=== PATIENT | male | born 1940 | race Caucasian/White ===

== ENCOUNTER 2017-06-07 07:41 | Outpatient (CLI) | payer MEDICARE, OTHER ==
--- NOTE | 2017-06-07 09:34 | RAD ---
TWO VIEWS OF THE CHEST: DATE: 06/07/17. COMPARISON: 03/07/17. HISTORY: Dyspnea. FINDINGS: Heart and mediastinal contours are stable, with mild prominence of the cardiac silhouette noted. The re is atherosclerotic calcification of the aortic arch. There is no pneumothorax or pleural fluid. No lobar consolidation or alveolar edema. On the lateral examination, there is a wedge-shaped area of focal opacity, which is felt to most like ly represent right middle lobe volume loss. This is new when compared to a 01/01/09 exam. Recommend f ollowup imaging to document reexpansion of right middle lobe. IMPRESSION: Wedge-shaped area of opacity noted anteriorly on the lateral examination suggesting partial right mid dle lobe consolidation/collapse. Recommend followup imaging to document reexpansion. POS: [facility]
== END 2017-06-07 07:42 | disposition home or self-care (01) ==
LOC: RAD 07:41
PROVIDERS: ATTEND Internal Medicine Critical Care Medicine
DX: R06.00 Dyspnea, unspecified (principal)
CPT/HCPCS: 71020

== ENCOUNTER 2017-07-13 08:30 | Outpatient (CLI) | payer MEDICARE, OTHER | END 2017-07-13 08:31 | disposition home or self-care (01) | LOC: CP 08:30 | PROVIDERS: ATTEND Internal Medicine Critical Care Medicine | DX: R06.00 Dyspnea, unspecified (principal) | CPT/HCPCS: 94060; 94727; 94729 ==

== ENCOUNTER 2017-10-02 09:35 | Inpatient (IN) | payer MEDICARE, OTHER ==
[2017-10-02 10:14] LABS: Mean Corpuscular HGB CONC 29.6 g/dL (32.0-36.0); Mean Corpuscular Hemoglobin 26.1 pg (27.0-31.0); Mean Corpuscular Volume 88.1 fl (80.0-94.0); Platelet Count 131 thou/uL (130-400); Red Blood Cell (RBC) Count 4.21 mill/uL (4.70-6.10); White Blood Cell (WBC) Count 8.7 thou/uL (4.8-10.8)
[2017-10-02 10:16] LABS: INR-International Normal Ratio 1.2; PTT 32.5 SEC (22.9-36.1); Prothrombin Time 15.3 SEC (12.0-14.7)
[2017-10-02 10:27] LABS: ALT (SGPT) 23 U/L (8-55); AST (SGOT) 12 U/L (5-34); Albumin 3.8 g/dL (3.4-4.8); Alkaline Phosphatase 62 U/L (40-150); BUN (Urea Nitrogen) 52 mg/dL (8.4-25.7); Bilirubin, Total 1.5 mg/dL (0.2-1.2); CK (CPK) 37 U/L (30-200); Calc. Creatinine Clearance 0 mL/min (70-130); Calcium 8.7 mg/dL (7.8-10.44); Estimated GFR-MDRD 48; Globulin 2.7 g/dL (2.4-3.5); Glucose 150 mg/dL (83-110); Iron 26 ug/dL (65-175); Iron Binding Capacity, Total 451 mcg/dL (261-462); Protein, Total 6.5 g/dL (5.8-8.1)
[2017-10-02 10:31] LABS: CKMB 1.5 ng/mL (0-6.6); Troponin I 0.014 ng/mL (< 0.028)
[2017-10-02 10:34] LABS: Anisocytosis SLIGHT = 6-15 cells (100X) (0-5/hpf); Band 3 % (5-11); Lymphocytes 5 % (21-51); MDiff Complete? YES; Monocytes 1 % (0-10); Neutrophil 91 % (42-75); Nucleated RBC 1 % (0); Polychromasia SLIGHT = 2-3 cells (100X) (0-2/hpf)
[2017-10-02 10:40] LABS: Carbon Dioxide 31 mmol/L (23-31)
[2017-10-02 10:43] LABS: Chloride 96 mmol/L (98-107); Potassium 5.3 mmol/L (3.5-5.1); Sodium 139 mmol/L (136-145)
[2017-10-02 10:44] LABS: Anion Gap 17 mmol/L (10-20)
[2017-10-02] MEDS ORDERED: Water For Inject, Bacteriostat 30 ML ONE (11:28)
[2017-10-02] MEDS ORDERED: methylPREDNISolone Sod Succ/PF 125 MG/2 ML VIAL ONE (11:28)
[2017-10-02 11:43] LABS: pH, Arterial 7.17 (7.35-7.45)
[2017-10-02 11:44] LABS: Actual Bicarbonate (HCO3a) 41.2 mEq/L (22-26); Base Excess (BEa) 9.6 mEq/L (0 (+/-) 2.5); Hematocrit-ABG 40.4 % (42.0-52.0); O2 Tension (PaO2) 85.3 mmHg (80.0-100.0)
[2017-10-02 11:45] LABS: Hemoglobin (Hb) 10.6 g/dL (14.0-18.0)
[2017-10-02 11:46] LABS: Analyzer IN Cardio ER
[2017-10-02 11:47] LABS: Puncture Site RT BA
[2017-10-02] MEDS ORDERED: Succinylcholine Chloride 20 MG/ML 10 ml SYRINGE FS ONE (11:47)
[2017-10-02] MEDS ORDERED: Pantoprazole 40 MG VIAL ONE (12:13)
[2017-10-02] MEDS ORDERED: Pantoprazole 80 MG in Sodium Chloride 0.9% 100 ML IVP SCH (12:15)
--- NOTE | 2017-10-02 12:40 | RAD ---
SINGLE VIEW OF THE CHEST: COMPARISON: None. HISTORY: Dyspnea. The patient has rheumatoid arthritis. FINDINGS: A single view of the chest shows an enlarged but stable cardiomediastinal silhouette. There is a sub tle opacity in the right lung base which may represent atelectasis or an infiltrate. IMPRESSION: 1. Right basilar atelectasis versus infiltrate. 2. Cardiomegaly. POS: [facility]
--- NOTE | 2017-10-02 12:53 | PDOC.FPRHP ---
- History of Present Illness Chief Complaint: Black stools History of Present Illness: This is a 76 y/o M with a PMHx of HTN and morbid obesity who presents to the ED due to an episode of dark black stools and bright red blood in the toilet bowl and on the toilet paper this AM. This has never happened to him before. He denies any hematemesis. He denies abd pain, N/V. He does report some constipation over the past 2 weeks and some bloating. The patient has also been having a cough for the past 2 weeks productive of clear sputum as well as worsening SOB. He has chronic LE swelling, but denies any F/C. He reports that he is being worked up outpatient by Dr. Sandoval and is due for a sleep study at the end of this month. He was discharged last time on oxygen, but Dr. Sandoval had taken him off of it because he did some testing in the office and said he didn' t need it. The patient also is supposed to get an Echo with Dr. Harrison on 2017. ED Course: In the ED he was given 2 duonebs, 125mg IV methylprednisolone, 80mg IVPB protonix, followed by protonix at 8mg/hr. The patient was very somnolent on arrival to the ED per the ER physician's record and the patient had an ABG checked that revealed significant CO2 retention. So the patient was started on BiPAP after the ED physician discussed the case with the pulmonlogist and reviewed the ABG. - Allergies/Adverse Reactions Allergies Allergy/AdvReac Type Severity Reaction Status Date / Time No Known Drug Allergies Allergy Verified 10/02/17 15:23 - Home Medications Medication Instructions Recorded Confirmed Type Amlodipine Besylate [amLODIPine 5 mg PO BID 10/02/17 10/02/17 History Besylate] Apixaban [Eliquis] 5 mg PO BID 10/02/17 10/02/17 History Aspirin [Ecotrin] 81 mg PO DAILY 10/02/17 10/02/17 History Budesonide-Formoterol [Symbicort 1 puff INH BID 10/02/17 10/02/17 History 160-4.5] Carvedilol [Coreg] 3.125 mg PO BID 10/02/17 10/02/17 History Furosemide [Lasix] 40 mg PO BID 10/02/17 10/02/17 History Lisinopril 10 mg PO BID 10/02/17 10/02/17 History - History PMHx: 1. HTN 2. Morbid Obesity 3. Past h/o Tobacco Abuse PSHx: 1. R Knee replacement FHx: Denies any family history Social: Former 50 year tobacco use, but quit in 2007, Denies EtOH use or drug use Dr. Samson - PCP Dr. Harrison - Teaching Young Dr. Sandovla - Transformer Builder - Review of Systems General: denies: fever/chills, fatigue ENT: denies: nasal congestion, rhinorrhea Respiratory: reports: cough, congestion, shortness of breath, exercise intolerance Cardiovascular: reports: edema. denies: chest pain, palpitation Gastrointestinal: reports: constipation, GI bleeding. denies: nausea, vomiting , diarrhea, abdominal pain Genitourinary: denies: dysuria, polyuria Skin: denies: rashes, lesions Musculoskeletal: denies: pain, tenderness Neurological: denies: numbness, syncope - Vital signs BP: 118/68 HR: 80 RR: 17 Tmax: 98.2 Pox: 95% on BiPAP Wt: 156 kg - Physical Exam Constitutional: NAD, awake, alert and oriented HEENT: normocephalic and atraumatic, PERRLA, EOMI, conjunctiva clear, normal nasal mucosa, MMM, oropharynx clear, other (BiPAP in place) Neck: supple, trachea midline -Heart: irregularly irregular, no murmurs/gallops/rubs, 1+ pitting edema present in bilateral LE Lungs: CTAB, no respiratory distress, good air movement, no rales/rhonchi, no wheezing, no retractions FMR H&P: Results - Labs Result Diagrams: 10/02/17 15:41 10/02/17 09:56 Lab results: WBC 8.7 thou/uL (4.8-10.8) 10/02/17 09:56 Hgb 11.0 g/dL (14.0-18.0) L 10/02/17 09:56 Hct 37.1 % (42.0-52.0) L 10/02/17 09:56 MCV 88.1 fl (80.0-94.0) 10/02/17 09:56 Plt Count 131 thou/uL (130-400) 10/02/17 09:56 Band Neuts % (Manual) 3 % (5-11) L 10/02/17 09:56 ABG pH 7.17 (7.35-7.45) L* 10/02/17 11:14 ABG pCO2 114.0 mmHg (35.0-45.0) H* 10/02/17 11:14 ABG pO2 85.3 mmHg (80.0-100.0) 10/02/17 11:14 Sodium 139 mmol/L (136-145) 10/02/17 09:56 Potassium 5.3 mmol/L (3.5-5.1) H 10/02/17 09:56 Chloride 96 mmol/L (98-107) L 10/02/17 09:56 Carbon Dioxide 31 mmol/L (23-31) 10/02/17 09:56 BUN 52 mg/dL (8.4-25.7) H 10/02/17 09:56 Creatinine 1.42 mg/dL (0.6-1.3) H 10/02/17 09:56 Glucose 150 mg/dL (83-110) H 10/02/17 09:56 Calcium 8.7 mg/dL (7.8-10.44) 10/02/17 09:56 Total Bilirubin 1.5 mg/dL (0.2-1.2) H 10/02/17 09:56 AST 12 U/L (5-34) 10/02/17 09:56 ALT 23 U/L (8-55) 10/02/17 09:56 Alkaline Phosphatase 62 U/L (40-150) 10/02/17 09:56 Creatine Kinase 37 U/L (30-200) 10/02/17 09:56 CK-MB (CK-2) 1.5 ng/mL (0-6.6) 10/02/17 09:56 B-Natriuretic Peptide 164.7 pg/mL (0-100) H 10/02/17 09:56 Serum Total Protein 6.5 g/dL (5.8-8.1) 10/02/17 09:56 Albumin 3.8 g/dL (3.4-4.8) 10/02/17 09:56 - EKG Interpretation EKG: a-fib, Rate 93 - Radiology Interpretation Chest x-ray Status: image reviewed by me, report reviewed by me Additional comment: Cardiomegaly, R basilar atelectasis vs infiltrate FMR H&P: A/P - Problem List (1) Acute respiratory failure with hypercapnia Current Visit: Yes Status: Acute Code(s): J96.02 - ACUTE RESPIRATORY FAILURE WITH HYPERCAPNIA (2) Respiratory acidosis Current Visit: Yes Status: Acute Code(s): E87.2 - ACIDOSIS (3) Gastrointestinal bleed Current Visit: Yes Status: Acute Code(s): K92.2 - GASTROINTESTINAL HEMORRHAGE, UNSPECIFIED Qualifiers: GI bleed type/associated pathology: unspecified gastrointestinal hemorrhage type Qualified Code(s): K92.2 - Gastrointestinal hemorrhage, unspecified (4) KOREY (acute kidney injury) Current Visit: Yes Status: Acute Code(s): N17.9 - ACUTE KIDNEY FAILURE, UNSPECIFIED (5) Hyperkalemia Current Visit: Yes Status: Acute Code(s): E87.5 - HYPERKALEMIA (6) CKD (chronic kidney disease) Current Visit: Yes Status: Acute Code(s): N18.9 - CHRONIC KIDNEY DISEASE, UNSPECIFIED Qualifiers: Chronic kidney disease stage: unspecified stage Qualified Code(s): N18.9 - Chronic kidney disease, unspecified (7) Normocytic anemia Current Visit: Yes Status: Acute Code(s): D64.9 - ANEMIA, UNSPECIFIED (8) Former heavy tobacco smoker Current Visit: Yes Status: Acute Code(s): Z87.891 - PERSONAL HISTORY OF NICOTINE DEPENDENCE (9) Morbid obesity Current Visit: No Status: Acute Code(s): E66.01 - MORBID (SEVERE) OBESITY DUE TO EXCESS CALORIES (10) Hypertension Current Visit: No Status: Chronic Code(s): I10 - ESSENTIAL (PRIMARY) HYPERTENSION Qualifiers: Hypertension type: essential hypertension Qualified Code(s): I10 - Essential (primary) hypertension (11) Atrial fibrillation Current Visit: Yes Status: Acute Code(s): I48.91 - UNSPECIFIED ATRIAL FIBRILLATION Qualifiers: Atrial fibrillation type: unspecified Qualified Code(s): I48.91 - Unspecified atrial fibrillation - Plan 1. Acute Hypercapnic Respiratory Failure, likely 2/2 CAP vs worsening of the patient's chronic lung dz vs Pickwickian syndrome The patient had findings suspicious for PNA on CXR. He was afebrile, but had 91 % Neutrophils and 3% bands. He has an extensive smoking history. He has been evaluated by Dr. Sandoval with Pulmonology and found to have severe restrictive lung disease with superimposed mild obstructive lung disease. The patient is morbidly obese and likely has MAY and has been set up for a sleep study outpatient at the end of this month. ABG showed pH 7.17, pCO2 117 -Dr. Palafox with Pulmonology has been consulted, appreciate recs -Repeat ABG in 6 hours -BiPAP -Admit to IMCU -Check urine strep pneumo and urine legionella antigens -Cover for CAP with Azithromycin day 1 and Rocephin day 1 2. GI Bleeding The patient had dark stools, associated constipation over the past 2 weeks and BRBPR on 10/02. He has never been worked up for this before. H/H is stable. Iron and Ferritin were low. -Will trend H/H q8h -Consult GI when patient is stable from a pulmonary standpoint -Protonix 40mg IV BID -Hold eliquis and aspirin 3. Normocytic Anemia Likely a combination of ACD and iron deficiency The patient has low iron and ferritin. -Consider iron infusion vs po iron for iron deficiency 4. Hyperkalemia Patient had initial elevated potassium with no EKG changes -Will recheck potassium and monitor 5. A-fib Patient appears rate controlled at this time -Will hold eliquis and aspirin -Monitor on tele 6. KOREY on CKD Patient appears to have a mild KOREY on top of his CKD. Will monitor. Do not want to give pt fluids as pt appears to have baseline fluid retention with his LE swelling. 7. HTN -Continue home meds 8. Morbid Obesity HH diet, counseling Disposition/LOS: Admit to IMCU Length of stay likely greater than 2 days FMR H&P: Upper Level - Pertinent history Patient with significant smoking history who has been evaluated by Pulmonology and found to have severe restrictive lung disease with superimposed mild obstructive lung disease. Presents to ED with acute worsening of SOB and BEE over the last two weeks, though this has a chronic issue for months/years. He was very somnolent upon arrival to ED with ABG showing CO2 retention. He was unable to maintain oxygen saturation on high flow nasal cannula and required BiPap with Pulm/Critical Care evaluation. Patient and family endorse hematochezia this morning. He reports a history of dark stools for several weeks, but only BRBPR this morning. He denies any pain or abdominal tenderness. He was recently started on Eliquis in September for atrial fibrillation by either Cardiology or PCP, but this history will need to be confirmed with providers as family is not sure about details. - Pertinent findings H/H: 11/37.1 K+: 5.3 BUN: 52 Cr: 1.42 AB.17/114/85 BNP: 164 Iron: 26 Ferritin: 15 Physical exam significant for 3+ pitting edema to bilateral knees and irregular rate and rhythm on cardiac auscultation. - Plan Date/Time: 10/02/17 1252 INikunj, have evaluated this patient and agree with findings/plan as outlined by internet project manager resident. Pertinent changes/additions are listed here. 1. Acute hypercapneic respiratory failure possibly 2/2 CAP: CXR shows possible RLL atelectasis versus infiltrate. Evaluation of prior CXR in March 2017 shows RLL density read as scar versus volume loss. Patient with left shift but no leukocytosis. Due to acute worsening of clinical picture we will cover with Rocephin and Azithromycin at this time. Patient has not been hypercapneic or tachycardic and he denies any unilateral lower extremity swelling above his baseline edema so there is a low suspicion for pulmonary embolus currently. BNP is within normal range and is lower than on prior admission. Patient has what seems to be a chronic compensated respiratory acidosis that was acutely worsened by infectious process. 2. GI bleed: FOBT positive in ER with several week history of dark stools and one day history of BRBPR. Iron and ferritin are low with MCV on low end of normal. Hemoglobin at 11 on admission. Plan for GI evaluation with likely endoscopy once respiratory status improves. In the meantime, we will trend H/H q8h and monitor hemodynamic status. Discontinue Eliquis 3. Hyperkalemia: 5.3 on admission with no EKG abnormalities. We will trend and continue to monitor 4. Normocytic anemia: labs reveal iron deficiency today probably 2/2 to GI bleed. Patient likely has ACD from his respiratory disease as well. H/H will be trended q8h 5. Atrial fibrillation: hold Eliquis 2/2 GI bleed. Rate and BP are stable currently. Monitor and treat accordingly
[2017-10-02 13:40] LABS: Troponin I 0.017 ng/mL (< 0.028)
--- NOTE | 2017-10-02 14:00 | HP ---
DATE OF ADMISSION: 10/02/2017 This is attending history and physical for patient, Quintin Rodgers. For full history and physical [facility], please see Dr. Nikkie Uriarte's history and physical. Portions of the history and physical have bee n repeated by myself and I am in agreement with the assessment and plan as documented in her note. HISTORY OF PRESENT ILLNESS: In brief, this patient is a 76-year-old male with a history of hypertens ion, morbid obesity, and questionable COPD, who presented to the emergency room earlier today after t he onset of bright red blood per rectum. Per the patient, he endorses that over the last 2 weeks, hi s stools have been darker than normal. However, this morning he had a bowel movement that he reporte d had red blood mixed in with the stool as well as was in the toilet water. He also endorses bright red blood with wiping this morning. He reports that he has never had this problem before. Of note, the patient was started on Xarelto by his potato seed cutter a few weeks ago. Otherwise, the patient denie s any nausea, abdominal pain, and diarrhea. He does report that he has had worsening constipation ov er the last several weeks. He also endorses some mild early satiety and reports that he has been gai michele weight despite lack of appetite. Upon arrival to the emergency room for his hematochezia compla int, the patient was noted to be hypoxic with sats in the 80s on room air. He was placed on nasal ca nnula with improving saturations. However, an ABG was checked which showed the patient to be severel y hypercapnic, at that time a decision was made to admit the patient for the hospital for hypercapnic respiratory failure. Upon questioning, the patient reports being at baseline mental status and endo rses no change in his respiratory status over the last few months. He reports that he has been basel ine short of breath since his last hospitalization in March. He reports that he has been seeing his PCP, Dr. Samson, as well as his bag presser, Dr. Sandoval, in the outpatient setting. He apparently had formal PFTs performed at Dr. Sandoval's office and the family is unsure of the result, but they repo rt that they do not think the patient was diagnosed with COPD. They do endorse that the patient was scheduled for a sleep study by Dr. Sandoval in the near future. The patient also denies any increased l ower extremity swelling, though he does endorse he chronically has this lower extremity edema. The p atrubi also reports chronic "phlegm" that he deals with daily that is unchanged recently. The patien t otherwise denies any fevers, chills, confusion, increased malaise or fatigue. PHYSICAL EXAMINATION: VITAL SIGNS: At the time of my exam, the patient's vitals were as follows: Temperature 98.2, pulse 96, blood pressure 103/49, respirations 28, oxygen saturation 96% on BiPAP. He weighs 156 kilograms. GENERAL: The patient is alert, oriented x4, in no apparent distress. He had BiPAP mask on and was b reathing well with that. He is morbidly obese. LUNG: Difficult to auscultate due to his body habitus though no abnormal sounds could be auscultated . HEART: Also faint and difficult to auscultate, mildly irregular rhythm with irregular but equal puls es bilaterally. ABDOMEN: Soft and globular. The patient had no epigastric or other quadrant tenderness to palpation . RECTAL: Deferred at this time, though that was performed in the emergency room, which showed interna l and external hemorrhoids as well as mild blood in the rectal vault with a positive FOBT. EXTREMITIES: Revealed no clubbing or cyanosis. The patient did have 3+ edema in the ankles bilatera lly, ascending to 2+ edema at the level of the knees. PERTINENT LABORATORY STUDIES: 1. Reveal CBC with a white blood cell count of 8.7, H&H of 11 and 37, platelets 131, neutrophils 91% with 3% bands and MCV 88. 2. BMP showed sodium 139, potassium 5.3, chloride 96, bicarbonate 31, BUN 52, creatinine 1.42, gluco se 150. 3. Iron studies showed iron level of 26, TIBC 451, ferritin 15.2. 4. Liver enzymes were overall normal with a mildly increase in total bilirubin. 5. BNP 164. 6. Arterial blood gas showed a pH 7.17, pCO2 of 114, pO2 of 85. Oxygen saturation 91%, base excess of 9. A-a gradient negative 28. 7. Coags show PT 15.3, PTT 32.5, INR 1.2. IMAGING: Chest x-ray showed right basilar atelectasis versus infiltrate as well as cardiomegaly. ASSESSMENT AND PLAN: A 76-year-old male with a history of some unspecified pulmonary disease, mike toribio being worked up by his bag presser who is presenting with hematochezia and hypercapnia. 1. Acute on chronic hypoxic hypercapnic respiratory failure. The patient will be admitted to the [facility] at this time on BiPAP therapy. Pulmonology has been consulted and we will appreciate their recomm endations in the care of this patient. Analysis of ABG shows that his hypercapnia is mostly a chroni c and well compensated respiratory acidosis. We have no known history that he is chronically hypoxic , though he is at this time. It is likely with the patient's chest x-ray findings he may have a mild developing pneumonia that could have thrown him over into this acute on chronic type picture. I rec ommend broad-spectrum antibiotics for community-acquired pneumonia, be started as well as respiratory support including nebulizer treatments as needed. For further weaning from BiPAP and other respirat ory measures will be managed by Pulmonology/Critical Care. The patient with normal mentation and the refore does not appear that his hypercapnia is affecting his mentation are causing some sort of encep halopathy. Due to his morbid obesity and lack of formal diagnosis chronic obstructive pulmonary dise ase, his hypercapnia is likely secondary to obesity hypoventilation syndrome that I assume be further worked up in the outpatient setting. 2. Hematochezia with likely gastrointestinal bleed. The patient recently started on novel oral anti coagulation by his potato seed cutter with onset of dark stools approximately 2 weeks ago with onset of titus ght red blood per rectum today. Unknown source could be related to hemorrhoids due to his dark stool s, I would be concerned about an upper GI tract bleed. He currently has no symptoms other than the e chase satiety, which could indicate GI gastric source of bleeding. The patient will need GI consult w ith likely endoscopy, though that can be deferred at this time until his respiratory status is more s table. We will trend H&H to ensure that he is not losing blood and we will consult GI more urgently if that becomes the case. We will hold anticoagulation at this time. The patient has been placed on KATIE hose. 3. Hyperkalemia. No known history. This is mild. We will continue to trend and monitor and take m easures if needed. 4. Chronic kidney disease. His creatinine is currently at near baseline. We will continue to monit or. 5. Normocytic anemia. This is likely multifactorial as the patient does have laboratory evidence of iron deficiency, but likely also has a component of anemia of chronic disease. We will trend H&H is as above. 6. Hypertension. Blood pressure currently stable at this time. Continue to monitor. 7. As far as the rest of his chronic medical conditions, he will be continued on his home medication s for atrial fibrillation and hypertension. Anticipate a minimum 2-3 day hospitalization.
[2017-10-02] MEDS ORDERED: cefTRIAXone\\ROCEPHIN 1 GM in Sodium Chloride 0.9% 100 ML IVPB SCH (15:00)
[2017-10-02 15:11] VITALS: BMI 45.9
[2017-10-02 15:51] LABS: Hemoglobin 11.6 g/dL (14.0-18.0)
[2017-10-02 16:16] LABS: Troponin I 0.019 ng/mL (< 0.028)
[2017-10-02] MEDS: Azithromycin 500 MG in Sodium Chloride 0.9% 250 ML 250 ML IVPB SCH (16:46)
[2017-10-02] MEDS: cefTRIAXone\\ROCEPHIN 1 GM, Syringe 0.4 ML in Sterile Water 9.6 ML SLOW IVP SCH (16:47)
[2017-10-02] MEDS: Mometasone/Formoterol 120 PUFF INHALER INH SCH (19:03)
[2017-10-02 19:32] LABS: Potassium 5.5 mmol/L (3.5-5.1)
--- NOTE | 2017-10-02 19:39 | CON ---
DATE OF CONSULTATION: 10/02/2017 SERVICE: Pulmonary Medicine. REASON FOR CONSULTATION: Respiratory failure. HISTORY OF PRESENT ILLNESS: The patient is a 76-year-old white male with past medical history significant for morbid obesity. He was in his usual state of health until about a week prior to presentation when he started having increasing somnolence. For the past 2 weeks, he has had also darkly normal stools. Either way, he had bright red blood, where he passed per rectum on the day of presentation. He came to the Emergency Department and was extraordinarily somnolent. An ABG was performed demonstrating acute on chronic hypercapnic respiratory failure. He was placed on BiPAP. His somnolence actually dramatically improved. He currently denies any shortness of breath, fevers, chills, nausea or vomiting. So far, he is aware, he has not had any new onset respiratory symptoms here recently. He failed to void when he was on the floor. A Noel catheter was attempted, but could not be passed. As such, Urology has been consulted. The patient is asking for food right now, but we are going to hold off on this moving forward. PAST MEDICAL HISTORY: 1. Morbid obesity. 2. Obstructive sleep apnea, strongly suspected. 3. Chronic hypercapnic respiratory failure (baseline pCO2 of 61). 4. Severe restrictive lung disease secondary to body habitus. 5. Obesity hypoventilation syndrome, suspected. PAST SURGICAL HISTORY: Right knee replacement. ALLERGIES: No known drug allergies. MEDICATIONS: List of his inpatient medications were reviewed. No updates were made at this time. FAMILY HISTORY: Noncontributory. SOCIAL HISTORY: The patient has a [id number] history of smoking, but quit smoking 10 years ago. He drinks 1-2 alcoholic drinks on a daily basis. He denies any illicit drugs. He has no exposure to chemicals, dust, asbestos or tuberculosis. REVIEW OF SYSTEMS: General, head, ears, eyes, nose, throat, cardiovascular, respiratory, GI, , musculoskeletal, neurologic and skin is negative except as stated in the HPI. PHYSICAL EXAMINATION: VITAL SIGNS: Afebrile, pulse 94, blood pressure 92/57, respiration is 19, saturation 93% on BiPAP with 30% FiO2 and a PEEP of 10. HEENT: Normocephalic and atraumatic. Sclerae are white, conjunctivae pink. Oral and nasal mucosa is moist without lesions. LUNGS: Decent air entry. Dependent crackles are not present. There is no prolonged expiratory phase or wheezing appreciated. HEART: Normal rate and regular. ABDOMEN: Soft, nontender and nondistended. Bowel sounds are positive. MUSCULOSKELETAL: No cyanosis or clubbing. No pitting in the bilateral lower extremities. NEUROLOGIC: Grossly nonfocal. He demonstrates asterixis. LABORATORY DATA: WBC 8.7. Hemoglobin 11.0, which has trended upward to 11.6. Platelets 131,000. Neutrophils are 91%. INR 1.2. PH 1.17 and pCO2 114 ( baseline 61). Creatinine 1.42 over baseline of 0.9. Potassium 5.3, glucose 150. Total bilirubin 1.5, ferritin 15.28. Troponins are negative x3, BNP 164. Liver function studies were essentially unremarkable otherwise. Urinalysis is unremarkable. IMAGING DATA: 1. Chest x-ray demonstrates right mid lung zone atelectasis versus infiltrate. Low lung volumes are present. Soft tissue attenuation is present. A fairly clearly demonstrated prior atelectasis of the right lower lobe on a CT scan remotely. At that time, there was no interstitial lung changes or changes consistent with the severe emphysema. 2. Recent pulmonary function studies demonstrated severe restrictive lung disease. 3. Recent echocardiogram demonstrates ejection fraction of 50% to 55%. Wall segments were not clearly identified. The valves that were identified were structurally normal. ASSESSMENT: 1. Acute on chronic hypoxic and hypercapnic respiratory failure. 2. Morbid obesity. 3. Obesity hypoventilation syndrome. 4. Obstructive sleep apnea, suspected. 5. Urinary retention. 6. Bright red blood per rectum. 7. Community-acquired pneumonia, possible. DISCUSSION AND PLAN: We have a challenging situation here. Ideally would have GI consider doing an esophagogastroduodenoscopy and colonoscopy. That being said, he can tolerate the conscious sedation under his current condition. We are going to put a Noel catheter and if his respiratory distress improves significantly with this intervention, we may be able to move forward with a GI consultation. If on the other hand, his respiratory status does not improve dramatically with that intervention, we may need to intubate him, so that we can undergo the diagnostic studies that are necessary. The majority of his lung problem is associated with his weight. I am doubtful that he has true intrinsic lung or obstructive lung disease like COPD or asthma, though minimal component may be contributed to his overall lung dysfunction. Agree with antibiotics directed at community-acquired pneumonia, although I would limit him to a 5-day course on both the azithromycin, and the Rocephin. We will provide some nebulized medications to see if we can promote more air movement through his lungs. He will remain on BiPAP and we can start giving him some breaks from time to time. I will give him a clear liquid diet, but I do not want his diet advanced until decided whether or not we need to proceed with intubation for a likely pending GI procedure. 70 minutes have been devoted to this patient in various activities. I personally reviewed all imaging studies and laboratory data noted within this document. For greater than fifty percent of this time, I was interacting with the patient at the bedside or coordinating care with the care team. For the remainder of the time I was immediately available to the patient in the hospital unit. LORA
[2017-10-02 19:40] LABS: Bilirubin Negative (Negative); Blood, Urine Large (Negative); Clarity CLEAR (Clear); Glucose, Urine (Dipstick) Negative (Negative); Leukocyte Negative (Negative); Nitrite Negative (Negative); Protein, Urine (Dipstick) 30 mg/dL (Neg-Trace); Specific Gravity, Urine 1.018 (1.002-1.036); Urobilinogen 0.2 mg/dL (0.2-1.0); pH, Urine 5.5 (5.0-9.0)
[2017-10-02 19:42] LABS: Bacteria/HPF None Seen HPF (None Seen); Hyaline Casts/LPF 0-3 HYALINE CAST LPF (0-3 Hyaline); RBC/HPF GREATER THAN 50-TNTC HPF (0-3); Squamous Epithelial 0-3 HPF (0-3); WBC/HPF 0-3 HPF (0-3)
--- NOTE | 2017-10-02 19:44 | CON ---
DATE OF CONSULTATION: 10/02/2017 PRIMARY CARE PHYSICIAN: Dr. Samson. REASON FOR CONSULTATION: Difficult Noel catheter placement, urinary retention , bladder scan 700-800 mL. HISTORY OF PRESENT ILLNESS: Mr. Rodgers is a pleasant 76-year-old male with history of hypertension, morbid obesity, COPD, followed by Dr. Sandoval. He is admitted due to acute hypoxic respiratory failure. He is currently on BiPAP and Dr. Palafox has been seeing the patient. He was transitioned to the emergency room and was told that he is due to void, nursing staff tried to place a Noel catheter x2 at bedside unable to pass and some resistance was noted proximally. Nursing staff attempted a 16-Macanese coude x2; however, due to subsequent blood per meatus, procedure was abandoned and urologic consultation was obtained. Bladder scan read 700-800 mL. The patient's is at bedside. He denies significant obstructive urinary symptoms of sensation of incomplete void. He does feel pressure to void at this time; however, unable to pass urine. He does relate nocturia 2-4 times, denies history of sexually transmitted diseases, prior history of BPH, prostate cancer or urologic assessment in the past. Denies prior history of urinary retention. He was previously admitted for similar respiratory failure back in March. PAST MEDICAL HISTORY: 1. History of respiratory failure. 2. Chronic obstructive pulmonary disease. 3. Morbid obesity. 4. Hypertension. ALLERGIES: No known drug allergies. PAST SURGICAL HISTORY: Right total knee replacement. FAMILY HISTORY: Noncontributory. SOCIAL HISTORY: Include [id number] smoking history, stopped smoking 10 years ago. Alcohol 1-2 drinks per day. 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 REVIEW OF SYSTEMS: Ten point review of systems as above, otherwise noncontributory. CURRENT MEDICATIONS: Include albuterol, Norvasc, Zithromax, carvedilol, Rocephin, Lasix 40 mg b.i.d., Zestril, Dulera, Protonix. PHYSICAL EXAMINATION: VITAL SIGNS: 98, 90, 21, 93% on BiPAP. GENERAL: The patient is currently comfortable, had sensation to void, feeling suprapubic pressure. HEENT: Grossly unremarkable. HEART: Regular rate. LUNGS: Clear, however, decreased bilaterally, given his body habitus. ABDOMEN: Morbidly obese, protuberant. There is no gross suprapubic distention per se; however, this is suboptimally evaluated. He is morbidly obese. GENITOURINARY: Demonstrates his prostate is approximately 30-40 grams. No significantly large prostate per se is palpated on exam. No nodules are appreciated. Testes are descended with no evidence of intratesticular mass. There is blood at the meatus from recent attempts at Noel catheter trauma/ attempted placement. The patient was formally prepped and draped and I did attempt to pass a 14 and16 Macanese coude catheter at bedside and there is resistance at the level of the bulbar prostatic urethral region. Subsequently, the patient is transitioned for a flexible cystoscopy. Indications reviewed with and patient. They desired to proceed. EXTREMITIES: No calf tenderness. DESCRIPTION OF PROCEDURE: The patient's penis was formally prepped and draped. A flexible cystoscope was passed. Upon entering the level of the proximal penile /bulbar urethra, there is a false passage. The true lumen was ventral to false passage. I was able to pass a 0.35 sensor wire to the level of the bladder. Wire was placed to the level of the bladder; unable to pass the scope while the wire in situ to access the bladder as he was having discomfort. Therefore, I did remove the flexible cystoscope. A ugashik tip 16 Macanese Noel catheter over the guidewire, which did pass successfully. Wire was then subsequently removed and approximately 700-800 mL of clear yellow urine was obtained for postvoid residual. He tolerated the procedure well and the Noel catheter was secured x2 with StatLock. A 10 mL insufflated. He tolerated the procedure well. IMPRESSION AND PLAN: Mr. Rodgers is a 76-year-old male with history of: 1. Morbid obesity. 2. Hypertension, who presents with acute respiratory failure. 3. Gastrointestinal bleed as he has had history of blood per rectum. 4. Urologic issues of acute urinary retention of post-void residual of 700-800 mL, cystoscopy demonstrating a false passage, successful Noel catheter placement via guide wire assist. . I will empirically provide Flomax for BPH component, incidentally noted is mild meatal stenosis; however, able to pass a 16 Macanese Noel. The Noel catheter was remained in situ for minimum 1-2 weeks , due to urinary retention of significant postvoid residual, as this will be required longer bladder decompression due to overdistention injury, moreover false passage requires further healing. The patient and informed. UA and C&S will be obtained. 5; gross hematuria secondary to anticoagulation with Elliquis, traumatic Noel catheter attempts. The etiology of difficulty Noel catheter placement is difficult to discern, cannot rule out occult urethral stricture resulting in initial difficult catheter attempts versus catheter related trauma. Elective cystoscopy in 6-8 weeks after voiding trial advised MTDD
[2017-10-02 19:57] LABS: Legionella Urinary Ag Negative (Negative); Strep pneumo Urine Ag NEGATIVE (NEGATIVE)
[2017-10-02] MEDS: Lisinopril 10 MG TAB PO SCH (20:16)
[2017-10-02] MEDS: Pantoprazole 40 MG VIAL IVP SCH (20:16)
[2017-10-02] MEDS: Amlodipine 5 MG TAB PO SCH (20:17)
[2017-10-02] MEDS: Carvedilol 3.125 MG TAB PO SCH (20:19)
[2017-10-02] MEDS: Furosemide 40 MG TAB PO SCH (20:19)
[2017-10-02 23:15] LABS: Hemoglobin 10.8 g/dL (14.0-18.0)
[2017-10-03 04:16] LABS: Anion Gap 14 mmol/L (10-20); BUN (Urea Nitrogen) 56 mg/dL (8.4-25.7); Calc. Creatinine Clearance 97 mL/min (70-130); Calcium 8.6 mg/dL (7.8-10.44); Carbon Dioxide 33 mmol/L (23-31); Chloride 98 mmol/L (98-107); Estimated GFR-MDRD 50; Glucose 128 mg/dL (83-110); Potassium 6.1 mmol/L (3.5-5.1); Sodium 139 mmol/L (136-145)
[2017-10-03 05:00] LABS: #Lymphocytes 0.5 thou/uL (1.20-3.40); #Monocytes 0.9 thou/uL (0.11-0.59); #Neutrophils 11.9 thou/uL (1.40-6.50); %Eosinophils 0.3 % (0.0-10.0); %Lymphocytes 3.8 % (21.0-51.0); %Monocytes 6.9 % (0.0-10.0); %Neutrophils 89.1 % (42.0-75.0); Anisocytosis SLIGHT = 6-15 cells (100X) (0-5/hpf); Hemoglobin 10.8 g/dL (14.0-18.0); MDiff Complete? YES; Mean Corpuscular HGB CONC 28.9 g/dL (32.0-36.0); Mean Corpuscular Hemoglobin 25.9 pg (27.0-31.0); Mean Corpuscular Volume 89.6 fl (80.0-94.0); Mean Platelet Volume 8.4 fL (7.4-10.4); RBC Distribution Width 17.4 % (11.5-14.5); Red Blood Cell (RBC) Count 4.18 mill/uL (4.70-6.10); White Blood Cell (WBC) Count 13.3 thou/uL (4.8-10.8)
[2017-10-03] MEDS: Mometasone/Formoterol 120 PUFF INHALER INH SCH ×2 (07:13→18:54)
--- NOTE | 2017-10-03 07:29 | PDOC.FM ---
Addendum entered and electronically signed by Nikkie Uriarte MD 10/03/17 07:43: Subjective: Patient doing well on BiPAP. He reports that he slept well overnight and has no complaints. He denies F/C, SOB, or CP. He denies any further BM's since arrival to the hospital. ROS: negative for fever, chills, N/V, D/C, abdominal pain, SOB, CP PE: General: drowsy, on BiPAP, easy to arouse HEENT: Normocephalic/atraumatic, PERRL Neck: Supple, No LAD CV: Irregularly irregular, no M/G/R, Trace pitting edema in BLE Resp: Bilateral rales, no wheezes or rubs, normal effort, no use of accessory muscles of respiration, on BiPAP Abd: morbidly obese, NTTP, normoactive BS MSK: normal tone, normal structure Neuro: AOx3 Original Note: - Objective Vital Signs & Weight: Vital Signs (12 hours) Temp Pulse Resp BP BP Pulse Ox 10/03/17 07:15 92 L 10/03/17 07:13 89 16 10/03/17 07:11 89 16 10/03/17 04:08 96.8 F L 90 23 H 101/62 91 L 10/03/17 00:36 87 92 L 10/03/17 00:35 92 L 10/02/17 23:44 93 17 104/61 94 L 10/02/17 22:00 88 18 108/63 88 L 10/02/17 20:17 88 102/68 10/02/17 20:16 102/68 10/02/17 20:00 96.8 F L 92 18 91 L 10/02/17 19:39 96.8 F L 92 18 127/72 91 L Weight Weight 152.577 kg I&O: 10/02/17 10/03/17 10/04/17 06:59 06:59 06:59 Intake Total 250 Output Total 1150 Balance -900 Result Diagrams: 10/03/17 03:33 10/03/17 03:33 <Nikkie Uriarte - Last Filed: 10/03/17 07:25> - Objective Vital Signs & Weight: Vital Signs (12 hours) Temp Pulse Resp BP Pulse Ox 10/03/17 07:47 97.2 F L 93 20 72/47 L 91 L 10/03/17 07:15 92 L 10/03/17 07:13 89 16 10/03/17 07:11 89 16 10/03/17 04:08 96.8 F L 90 23 H 101/62 91 L 10/03/17 00:36 87 92 L 10/03/17 00:35 92 L 10/02/17 23:44 93 17 104/61 94 L Weight Weight 152.577 kg I&O: 10/02/17 10/03/17 10/04/17 06:59 06:59 06:59 Intake Total 250 Output Total 1150 Balance -900 Result Diagrams: 10/03/17 03:33 10/03/17 03:33 <Geremias Ahumada - Last Filed: 10/03/17 10:58> Dx/Plan (1) Acute respiratory failure with hypercapnia Code(s): J96.02 - ACUTE RESPIRATORY FAILURE WITH HYPERCAPNIA Status: Acute (2) Respiratory acidosis Code(s): E87.2 - ACIDOSIS Status: Acute (3) Gastrointestinal bleed Code(s): K92.2 - GASTROINTESTINAL HEMORRHAGE, UNSPECIFIED Status: Acute QualifierTitle: GI bleed type/associated pathology: unspecified gastrointestinal hemorrhage type Qualified Code(s): K92.2 - Gastrointestinal hemorrhage, unspecified (4) KOREY (acute kidney injury) Code(s): N17.9 - ACUTE KIDNEY FAILURE, UNSPECIFIED Status: Acute (5) Hyperkalemia Code(s): E87.5 - HYPERKALEMIA Status: Acute (6) CKD (chronic kidney disease) Code(s): N18.9 - CHRONIC KIDNEY DISEASE, UNSPECIFIED Status: Acute QualifierTitle: Chronic kidney disease stage: unspecified stage Qualified Code(s): N18.9 - Chronic kidney disease, unspecified (7) Normocytic anemia Code(s): D64.9 - ANEMIA, UNSPECIFIED Status: Acute (8) Former heavy tobacco smoker Code(s): Z87.891 - PERSONAL HISTORY OF NICOTINE DEPENDENCE Status: Acute (9) Morbid obesity Code(s): E66.01 - MORBID (SEVERE) OBESITY DUE TO EXCESS CALORIES Status: Acute (10) Hypertension Code(s): I10 - ESSENTIAL (PRIMARY) HYPERTENSION Status: Chronic QualifierTitle: Hypertension type: essential hypertension Qualified Code( s): I10 - Essential (primary) hypertension (11) Atrial fibrillation Code(s): I48.91 - UNSPECIFIED ATRIAL FIBRILLATION Status: Acute QualifierTitle: Atrial fibrillation type: unspecified Qualified Code(s): I48.91 - Unspecified atrial fibrillation - Plan Plan: 1. Acute Hypercapnic Respiratory Failure, likely 2/2 CAP vs Obesity Hypoventilation Syndrome The patient had findings suspicious for PNA on CXR. He was afebrile, but had 91 % Neutrophils and 3% bands. His WBC trending up this AM to 13.3. He has an extensive smoking history. He has been evaluated by Dr. Sandoval with Pulmonology and found to have severe restrictive lung disease with superimposed mild obstructive lung disease. The patient is morbidly obese and likely has MAY and has been set up for a sleep study outpatient at the end of this month. ABG showed pH 7.17, pCO2 117. Urine strep pneumo and urine legionella antigens negative. -Dr. Palafox with Pulmonology has been consulted, appreciate recs -BiPAP overnight with IPAP 20, EPAP 10, and O2 50%, will attempt to wean off during the day today to [place]. -Cover for CAP with Azithromycin day 2 of 5 and Rocephin day 2 of 2. GI Bleeding The patient had dark stools, associated constipation over the past 2 weeks and BRBPR on 10/02. He has never been worked up for this before. H/H is stable. Iron and Ferritin were low. Patient has not had any further BM's since being hospitalized. -Will trend H/H q8h -Consult GI when patient is stable from a pulmonary standpoint -Protonix 40mg IV BID -Hold eliquis and aspirin 3. Acute Urinary Retention Patient had meatal stenosis, possible BPH, and a false passage in the urethra on cystoscopy. Patient had 700-800mL of post-void residual. He denies any urinary symptoms. -Urology has been consulted, appreciate recs -Noel successfully placed and will remain in place for minimum of 1-2 weeks per urology -Flomax for BPH 4. Normocytic Anemia Likely a combination of ACD and iron deficiency The patient has low iron and ferritin. -Consider iron infusion vs po iron for iron deficiency 5. Hyperkalemia Patient had initial elevated potassium with no EKG changes, this has trended up to 6.1. -Will check EKG for changes -Albuterol neb -Insulin and glucose - patient cannot tolerate kayexalate due to potential GI bleed -Will recheck potassium and monitor 6. A-fib Patient appears rate controlled at this time -Will hold eliquis and aspirin -Monitor on tele 7. KOREY on CKD Patient appears to have a mild KOREY on top of his CKD. Will monitor. Do not want to give pt fluids as pt appears to have baseline fluid retention with his LE swelling. Improving this AM 8. HTN Patient has had low BP's to the 90's systolic since being admitted, so his home BP meds have been held -May consider light fluids if this continues 9. Morbid Obesity counseling. His body habitus is likely contributing to his restrictive lung disease. <Nikkie Uriarte - Last Filed: 10/03/17 07:25> Attending Addendum - Attending Addendum Date/Time: 10/03/17 [id number] I personally evaluated the patient and discussed the management with Dr. Uriarte. I agree with the History, Examination, Assessment and Plan documented above with any addition or exceptions noted below. Patient improved respiratory status. He is now doing well on nasal cannula. We will now consult GI to evaluate for this acute GI bleed while on oral anticoagulation. Continue to hold blood thinners. His H&H is stable and no evidence of active bleeding. Mildly hypotensive this morning, but he may be fluid down. Will give bolus and monitor. Potassium continues to increase, will recheck after IV fluids and institute other measures. ? related to GI bleed and absorption of degraded blood cell components. <Geremias Ahumada - Last Filed: 10/03/17 10:58>
[2017-10-03] MEDS ORDERED: Furosemide 40 MG/4 ML VIAL SLOW IVP SCH (09:30)
[2017-10-03] MEDS ORDERED: Sodium Chloride 0.9% 500 ML IV SCH (09:30)
[2017-10-03] MEDS: Pantoprazole 40 MG VIAL IVP SCH ×2 (09:51→20:42)
--- NOTE | 2017-10-03 12:48 | PRG ---
DATE OF SERVICE: 10/03/2017 SUBJECTIVE: The patient without complaints, extended family at bedside. OBJECTIVE: VITAL SIGNS: Stable, 98% on 2 liters. Urine output 1150 of concentrated yellow urine. ABDOMEN: Obese, protuberant. No significant blood per meatus. LABORATORY DATA: White blood cell count 13, hemoglobin 10, creatinine 1.3. Urinalysis per Noel catheter after cystoscopic broker assistant catheter placement due to false passage dem onstrates 30 of protein, greater than 50 rbc's, and no bacteria. Culture is pending. IMPRESSION AND PLAN: Mr. Rodgers is a pleasant 76-year-old male with past medical history of: 1. Morbid obesity. 2. Hypertension. 3. Current admission due to acute respiratory failure. 4. Gastrointestinal bleed, GI consultation pending. 5. Urologic issues of acute urinary retention, PVR of 700 to 800 mL, requiring cystoscopic assistanc e of Noel catheter placement due to a false passage. Successful Noel catheter placement at bedside yesterday demonstrating clear yellow urine. We will follow up regarding urine culture results. 6. Mild meatal stenosis. Recommend indwelling Noel catheter minimum 1 to 2 weeks due to campo age, continue Flomax for empiric BPH component. Elective diagnostic cystoscopy at a later date to re stage would be advised. 7. History of tobacco abuse. 8. Hematuria due to traumatic Noel catheter placement, false passage. 9. Etiology of urinary retention include differential diagnosis of occult urethral stricture, BPH co mponent, traumatic Noel catheter placement.
[2017-10-03] MEDS: Furosemide 40 MG TAB PO SCH ×2 (12:55→20:26)
[2017-10-03] MEDS: Amlodipine 5 MG TAB PO SCH ×2 (12:55→20:26)
[2017-10-03] MEDS: Carvedilol 3.125 MG TAB PO SCH ×2 (12:55→20:41)
[2017-10-03] MEDS: Lisinopril 10 MG TAB PO SCH ×2 (12:56→20:26)
[2017-10-03] MEDS: Tamsulosin HCl 0.4 MG CAP PO SCH (12:56)
[2017-10-03 13:27] LABS: Potassium 5.3 mmol/L (3.5-5.1)
--- NOTE | 2017-10-03 14:13 | PRG ---
DATE OF SERVICE: 10/03/2017 SERVICE: Pulmonary Medicine. INTERVAL HISTORY: The patient is doing really well from a cardiovascular and respiratory standpoint. He denies any fevers, chills, nausea or vomiting. He is breathing much more comfortably this morning and is off of his BiPAP. His breathing actually improved fairly dramatically, almost immediately after the Noel catheter was placed. Otherwise, there has been no significant interval change to his condition. PHYSICAL EXAMINATION: VITAL SIGNS: Afebrile, pulse 91, blood pressure 106/60, respirations 18, saturation 91% on 2 liters nasal cannula. GENERAL: The patient is awake, alert, no apparent distress. LUNGS: Decent air entry. There are some dependent crackles, which are minimal. HEART: Normal rate, regular. ABDOMEN: Soft, nontender, and nondistended. Bowel sounds are positive. MUSCULOSKELETAL: No cyanosis or clubbing. There is 2+ pitting in the bilateral lower extremities. NEUROLOGIC: Grossly nonfocal. LABORATORY DATA: WBC 13.3, hemoglobin 10.8, creatinine 1.38 and down trending, BUN 56. Bicarbonate 33 and stable. Basic metabolic profile is otherwise unremarkable except for potassium 6.1. Troponins are negative x3. Urine red blood cells are greater than 50. Strep and legionella urine antigens are unremarkable. ASSESSMENT: 1. Acute on chronic hypoxic and hypercapnic respiratory failure. 2. Morbid obesity. 3. Obesity hypoventilation syndrome. 4. Obstructive sleep apnea, suspected. 5. Urinary retention. 6. Bright red blood per rectum. 7. Community-acquired pneumonia, possible. PLAN: We will continue the antibiotics, though I am really not certain that there is a true pulmonary infectious process that is at play here. I believe the patient's respiratory failure was secondary to distention of urinary bladder. From a lung perspective, he is optimized to proceed with the procedure , though conscious sedation is advised against. Endotracheal tube is certainly be the safest way to secure his for any type of planned procedure. Pulmonary or Critical Care will continue to follow while he remains in this location, but we will leave him off of BiPAP during the day. LORA
[2017-10-03] MEDS: cefTRIAXone\\ROCEPHIN 1 GM, Syringe 0.4 ML in Sterile Water 9.6 ML SLOW IVP SCH (17:26)
[2017-10-03] MEDS: Azithromycin 500 MG in Sodium Chloride 0.9% 250 ML 250 ML IVPB SCH (17:27)
--- NOTE | 2017-10-03 22:52 | CON ---
DATE OF CONSULTATION: 10/03/2017 HISTORY OF PRESENT ILLNESS: Mr. Rodgers 76-year-old gentleman, who came to the hospital yesterday wit h complaints of hematochezia, noticed some bright red blood per rectum after wiped in the toilet, rep orts she had had some hard black stools couple days before that. He had a similar episode about 2 we eks ago. He denies any abdominal pain, but has had some constipation. He has had worsening problems of shortness of breath, having to use more pillows when sleeping and decreased energy. He has had p revious evaluations on obstructive lung disease, it is just felt to be related to his size. He did n ot have any signs of COPD. He is supposed to have a sleep study, but has not been done yet. He has had no further bleeding since admission. His hemoglobin was 12 on 03/08/2017. On admission, yesterd ay it was 11.9, presently it is 10.8. The bigger issue for him is when he came in, he was very hyper carbic with pCO2 of 114 and was not breathing well, had been put on BiPAP, it was relatively discover ed this was related to bladder outlet obstruction. He had to have a Noel placed by the urologist, a ctually last night. The patient denies any family history of colorectal cancer or liver disease. He does not take any NSAIDs other than aspirin, he was started on blood thinner, Eliquis, just about 2 weeks ago for atrial fibrillation. He does report he was on B12 shots in the recent past. PAST MEDICAL HISTORY: 1. Morbid obesity. 2. Obstructive sleep apnea, suspected. 3. Chronic hypercapnic respiratory failure. 4. Severe restrictive lung disease, likely related to body habitus. 5. Obesity hypoventilation syndrome, suspected. 6. History of atrial fibrillation. 7. Hypertension. 8. He may have a history of some heart failure. PAST SURGICAL HISTORY: Right knee replacement. FAMILY HISTORY: Negative for colorectal cancer or liver disease. SOCIAL HISTORY: Former smoker, quit in 2007. Denies alcohol or drug use. ALLERGIES: None known. MEDICATIONS AT HOME: Lisinopril, furosemide, Coreg, Symbicort, aspirin 81, Eliquis 5 mg, amlodipine 5 mg b.i.d., DuoNeb, Norvasc, azithromycin, carvedilol, Rocephin, Lasix 40 b.i.d., lisinopril 10 mg b .i.d., Dulera, Protonix 40 mg IV q.12 hours, tamsulosin 0.4 daily. REVIEW OF SYSTEMS: More fatigued. Decreased energy recently. Increased shortness of breath recentl y. More constipation. Denies any dysphagia, odynophagia, nausea, vomiting, or regurgitation. Denie s any chest pain. PHYSICAL EXAMINATION: VITAL SIGNS: Temperature 97, pulse 91, blood pressure 88/52 and 102/68, respirations 16, O2 sat 91% on 2 liters nasal cannula even with moving into his left side, his saturations dropped in the 80s. GENERAL: He was alert and oriented. He is very nice. HEENT: Conjunctivae and sclerae are clear. Neck noted to obese, supple, no venous structures can be evaluated. There is no adenopathy palpated. LUNGS: Diminished breath sounds throughout. HEART: Distant heart sounds. Regular rate and rhythm. ABDOMEN: Soft, nontender with no palpable hepatosplenomegaly. There is no organs are palpable on ex am. He has a very protuberant abdomen. RECTAL: Reveals nothing in the vault at this time. No overt masses are palpated. EXTREMITIES: Revealed edema. LABORATORY DATA: White count 13.3, hemoglobin 10.8, platelet count 131. INR is 1.2 yesterday. Sodi um 139; potassium 6.1, now 5.3. Chloride 9.8, BUN and creatinine are 56 and 1.38, 52 yesterday, prio r to that it was 17 to 14 range. Creatinine is around baseline. ASSESSMENT AND PLAN: 1. Gastrointestinal bleed. It is unclear if this was related the Eliquis starting or with Eliquis u nmasked, underlying lesions, it sounds like he has some hematochezia, but also had some black stools. His baseline hemoglobin has been a slightly low in the past around 13.2 in 03/2017. At this point in time, he is not a candidate for endoscopy. He just had a Noel placed for a distended bladder. H is respiratory status is slowly improving after nearly being intubated yesterday. I think we could w ait a few days and if he is stable, they consider prepping for upper and lower endoscopy tomorrow for Wednesday or Wednesday. He would need to be intubated for that procedure, I do not think he would eduin n tolerate doing unsedated endoscopy as when he was laid on his side to desaturate significantly. 2. Atrial fibrillation, at present Eliquis on hold. He has had a recent bleed. 3. Restrictive lung disease with severe hypoventilation syndrome related to body habitus. I have di scussed issues with Dr. Palafox today. I will advance his diet from now and to a low residue diet an d observe. 4. Agree with PPI therapy.
[2017-10-04 04:57] LABS: Anion Gap 12 mmol/L (10-20); BUN (Urea Nitrogen) 68 mg/dL (8.4-25.7); Calc. Creatinine Clearance 71 mL/min (70-130); Calcium 8.2 mg/dL (7.8-10.44); Carbon Dioxide 36 mmol/L (23-31); Chloride 94 mmol/L (98-107); Estimated GFR-MDRD 35; Glucose 88 mg/dL (83-110); Potassium 5.5 mmol/L (3.5-5.1); Sodium 136 mmol/L (136-145)
[2017-10-04 05:06] LABS: #Lymphocytes 1.1 thou/uL (1.20-3.40); #Monocytes 0.7 thou/uL (0.11-0.59); #Neutrophils 5.5 thou/uL (1.40-6.50); %Basophils 0.3 % (0.0-1.0); %Eosinophils 0.4 % (0.0-10.0); %Lymphocytes 14.9 % (21.0-51.0); %Monocytes 9.9 % (0.0-10.0); %Neutrophils 74.6 % (42.0-75.0); Hemoglobin 9.8 g/dL (14.0-18.0); Mean Corpuscular HGB CONC 29.5 g/dL (32.0-36.0); Mean Corpuscular Hemoglobin 25.9 pg (27.0-31.0); Mean Corpuscular Volume 87.7 fl (80.0-94.0); Mean Platelet Volume 8.7 fL (7.4-10.4); PLT Morphology Comment Appears Decreased; Platelet Count 90 thou/uL (130-400); RBC Distribution Width 17.6 % (11.5-14.5); Red Blood Cell (RBC) Count 3.77 mill/uL (4.70-6.10); White Blood Cell (WBC) Count 7.4 thou/uL (4.8-10.8)
[2017-10-04] MEDS ORDERED: Sodium Chloride 0.9% 1,000 ML IV SCH ×2 (07:00)
[2017-10-04] MEDS: Carvedilol 3.125 MG TAB PO SCH ×2 (07:51→20:24)
[2017-10-04] MEDS: Furosemide 40 MG TAB PO SCH (07:51)
[2017-10-04] MEDS: Amlodipine 5 MG TAB PO SCH (07:51)
[2017-10-04] MEDS: Tamsulosin HCl 0.4 MG CAP PO SCH (07:52)
[2017-10-04] MEDS: Pantoprazole 40 MG VIAL IVP SCH ×2 (07:52→20:24)
[2017-10-04] MEDS: Lisinopril 10 MG TAB PO SCH (07:52)
[2017-10-04] MEDS: Mometasone/Formoterol 120 PUFF INHALER INH SCH ×2 (08:26→18:45)
--- NOTE | 2017-10-04 08:35 | PDOC.FM ---
- Subjective Subjective: Patient doing well this AM. He was on BiPAP overnight and then transitioned to NC during the day. He reports that he has not had any BM's since arriving here. He denies N/V/Abd pain. He reports that his breathing improved some. His reports that he is at his baseline mentation. - Objective MAR Reviewed: Yes Vital Signs & Weight: Vital Signs (12 hours) Temp Pulse Resp BP BP Pulse Ox 10/04/17 08:31 97 10/04/17 08:30 121 H 20 97 10/04/17 08:00 98.7 F 111 H 20 92 L 10/04/17 07:52 89/54 L 10/04/17 07:51 111 H 10/04/17 07:38 98.7 F 111 H 20 115/76 92 L 10/04/17 04:00 99.6 F 104 H 14 120/69 92 L 10/04/17 01:17 96 10/04/17 01:13 94 L 10/04/17 00:00 98.7 F 96 16 111/63 95 10/03/17 22:05 95 18 94 L Weight Weight 152.577 kg I&O: 10/03/17 10/04/17 10/05/17 06:59 06:59 06:59 Intake Total 250 1430 Output Total 1150 400 Balance -900 1030 Result Diagrams: 10/04/17 04:20 10/04/17 04:20 <Nikkie Uriarte - Last Filed: 10/04/17 08:41> - Objective Vital Signs & Weight: Vital Signs (12 hours) Temp Pulse Resp BP BP Pulse Ox 10/04/17 13:44 90 L 10/04/17 13:40 108 H 20 90 L 10/04/17 11:00 98.4 F 111 H 20 108/65 93 L 10/04/17 08:31 97 10/04/17 08:30 121 H 20 97 10/04/17 08:00 98.7 F 111 H 20 92 L 10/04/17 07:52 89/54 L 10/04/17 07:51 111 H 10/04/17 07:38 98.7 F 111 H 20 115/76 92 L 10/04/17 04:00 99.6 F 104 H 14 120/69 92 L Weight Weight 152.577 kg I&O: 03/04/18 03/05/18 03/06/18 06:59 06:59 06:59 Intake Total 250 1430 Output Total 1150 400 Balance -900 1030 Result Diagrams: 10/04/17 04:20 10/04/17 13:57 <Chu Botello - Last Filed: 10/04/17 15:38> Phys Exam - Physical Examination Constitutional: NAD HEENT: moist MMs Neck: no nodes, supple Respiratory: wheezing present no use of accessory muscles of respiration Cardiovascular: no significant murmur, no rub, irregular Gastrointestinal: soft, non-tender, no distention, positive bowel sounds morbidly obese Musculoskeletal: edema present (trace) Neurological: non-focal, moves all 4 limbs Psychiatric: normal affect, A&O x 3 <Nikkie Uriarte - Last Filed: 10/04/17 08:41> Dx/Plan (1) Acute respiratory failure with hypercapnia Code(s): J96.02 - ACUTE RESPIRATORY FAILURE WITH HYPERCAPNIA Status: Acute (2) Respiratory acidosis Code(s): E87.2 - ACIDOSIS Status: Acute (3) Gastrointestinal bleed Code(s): K92.2 - GASTROINTESTINAL HEMORRHAGE, UNSPECIFIED Status: Acute QualifierTitle: GI bleed type/associated pathology: unspecified gastrointestinal hemorrhage type Qualified Code(s): K92.2 - Gastrointestinal hemorrhage, unspecified (4) KOREY (acute kidney injury) Code(s): N17.9 - ACUTE KIDNEY FAILURE, UNSPECIFIED Status: Acute (5) Hyperkalemia Code(s): E87.5 - HYPERKALEMIA Status: Acute (6) CKD (chronic kidney disease) Code(s): N18.9 - CHRONIC KIDNEY DISEASE, UNSPECIFIED Status: Acute QualifierTitle: Chronic kidney disease stage: unspecified stage Qualified Code(s): N18.9 - Chronic kidney disease, unspecified (7) Normocytic anemia Code(s): D64.9 - ANEMIA, UNSPECIFIED Status: Acute (8) Former heavy tobacco smoker Code(s): Z87.891 - PERSONAL HISTORY OF NICOTINE DEPENDENCE Status: Acute (9) Morbid obesity Code(s): E66.01 - MORBID (SEVERE) OBESITY DUE TO EXCESS CALORIES Status: Acute (10) Hypertension Code(s): I10 - ESSENTIAL (PRIMARY) HYPERTENSION Status: Chronic QualifierTitle: Hypertension type: essential hypertension Qualified Code( s): I10 - Essential (primary) hypertension (11) Atrial fibrillation Code(s): I48.91 - UNSPECIFIED ATRIAL FIBRILLATION Status: Acute QualifierTitle: Atrial fibrillation type: unspecified Qualified Code(s): I48.91 - Unspecified atrial fibrillation - Plan Plan: 1. Acute Hypercapnic Respiratory Failure, likely 2/2 CAP vs Obesity Hypoventilation Syndrome The patient had findings suspicious for PNA on CXR. He was afebrile, but had 91 % Neutrophils and 3% bands. His WBC was elevated to 13.3, but has since normalized. He has an extensive smoking history. He has been evaluated by Dr. Sandoval with Pulmonology and found to have severe restrictive lung disease with superimposed mild obstructive lung disease. The patient is morbidly obese and likely has MAY and has been set up for a sleep study outpatient at the end of this month. ABG showed pH 7.17, pCO2 117. Urine strep pneumo and urine legionella antigens negative. -Dr. Palafox with Pulmonology has been consulted, appreciate recs -BiPAP overnight with NC during the day -Cover for CAP with Azithromycin day 3 of and Rocephin day 3 2. GI Bleeding The patient had dark stools, associated constipation over the past 2 weeks and BRBPR on 10/02. He has never been worked up for this before. H/H is stable. Iron and Ferritin were low. Patient has not had any further BM's since being hospitalized. -Dr. Arce with GI has been consulted, there is concern for doing scope under conscious sedation in this gentleman due to his respiratory status. Considering scope under general anesthesia when more stable from a respiratory standpoint. -Protonix 40mg IV BID -Hold eliquis and aspirin 3. Acute Urinary Retention Patient had meatal stenosis, possible BPH, and a false passage in the urethra on cystoscopy. Patient had 700-800mL of post-void residual. He denies any urinary symptoms. -Urology has been consulted, appreciate recs -Noel successfully placed and will remain in place for minimum of 1-2 weeks per urology -Flomax for BPH 4. Normocytic Anemia Likely a combination of ACD and iron deficiency The patient has low iron and ferritin. -Consider iron infusion vs po iron for iron deficiency 5. Hyperkalemia Patient had initial elevated potassium with no EKG changes, this has trended up to 6.1 and is now down to 5.5 -Albuterol neb -Insulin and glucose - patient cannot tolerate kayexalate due to potential GI bleed -Will recheck potassium and monitor 6. A-fib Patient appears rate controlled at this time -Will hold eliquis and aspirin -Monitor on tele 7. KOREY on CKD Patient appears to have a mild KOREY on top of his CKD. Will monitor. Gave pt a bolus of fluids this AM due to worsening KOREY and low UOP. Will watch closely for signs/symptoms of flash pulmonary edema -CT abd 8. HTN Patient has had low BP's to the 90's systolic since being admitted, so his home BP meds have been held -1L NS bolus this AM 9. Morbid Obesity counseling. His body habitus is likely contributing to his restrictive lung disease. <Nikkie Uriarte - Last Filed: 10/04/17 08:41> Attending Addendum - Attending Addendum Date/Time: 10/04/17 1536 I personally evaluated the patient and discussed the management with Dr. Uriarte. I agree with the History, Examination, Assessment and Plan documented above with any addition or exceptions noted below. I think he would benefit from increased, judicious IV fluids. I appreciate the care of our consultants. <Chu Botello - Last Filed: 10/04/17 15:38>
--- NOTE | 2017-10-04 08:47 | PRG ---
DATE OF SERVICE: 10/04/2017 SUBJECTIVE: The patient without complaints, at bedside. PHYSICAL EXAMINATION: VITAL SIGNS: T-max of 99.6, T-current 98.7, heart rate 104 to 111, blood pressure 89/54, 92% on 2 liters. ABDOMEN: Soft, obese, protuberant. GENITOURINARY: Noel catheter adequately secured with clear concentrated yellow urine. LABORATORY DATA:. I's and O's 1430 in, 400 out over the last 24 hours preceding 1150. He is positive 1 liter today White count 7.4, hemoglobin 9.8, admitting hemoglobin is 11. Admitting creatinine 1.4, 1.3, this morning he is 1.89 with BUN over 68. UA; 30 of protein, greater than 50 RBCs, no bacteria. Urine culture preliminary negative thus far on Rocephin per primary service. IMPRESSION AND PLAN: 1. Mr. Rodgers is a 76-year-old male with past medical history of morbid obesity. 2. Hypertension. 3. acute respiratory failure/COPD 4. Admitted for GI bleed, GI workup in progress, colonoscopy on hold due to patient's pulmonary status. 5. History of tobacco abuse. 6. History of gross hematuria secondary to traumatic Noel catheter placement. 7. History of atrial fibrillation, previously on Eliquis on hold due to gastrointestinal bleed. 8. Mild meatal stenosis. 9. Emergent urologic consultation was obtained over the weekend due to PVR of 700-800 mL, requiring cystoscopic assistance to place Noel catheter due to false passage. Noel catheter is to remain in situ per . Please do not remove Noel catheter, as this will be dealt by . He will require a minimum 1 -2 weeks for Noel catheter to continue due to traumatic Noel catheter. 10. Empiric treatment for benign prostatic hypertrophy on Flomax. 11. Acute renal insufficiency, avoid nephrotoxins, gentle hydration due to prerenal KOREY; will need to be monitored for exacerbation of respiratory failure. although suspicion low for hematuria pathology, as this was most likely due to traumatic Noel catheter placement, will obtain CT w/o given renal insufficiency. MTDD
--- NOTE | 2017-10-04 10:36 | CT ---
CT ABDOMEN AND PELVIS WITHOUT IV CONTRAST: Date: 10/04/17 Multiple axial tomograms obtained through the abdomen and pelvis without IV enhancement. HISTORY: Renal insufficiency. Evaluate urinary tract. FINDINGS: Images through the lung bases show small right effusion. There is bibasilar atelectasis and/or consol idation. Liver, spleen, and pancreas appear unremarkable for an unenhanced exam. The adrenal glands appear normal. Kidneys are unremarkable. There is no evidence of hydronephrosis. No evidence of urinary tract calcul us. The bladder has a Noel catheter in place and is contracted and not adequately evaluated. No signific ant prostatic hypertrophy. Small prostatic calcification. Small bowel loops appear normal. Appendix appears normal. Colon unremarkable. Aorta normal caliber. N o adenopathy. IMPRESSION: 1. Small right pleural effusion. Bibasilar atelectasis/consolidation, more prominent on the right. 2. No evidence of hydronephrosis or urinary tract calculus. Bladder is contracted with a Noel alcon ter in place. POS: CLARIBEL
--- NOTE | 2017-10-04 12:02 | PRG ---
DATE OF SERVICE: 10/04/2017 Mr. Rodgers has had no further bleeding. He is without complaints. I talked with Dr. Sandoval today. Nely anderson felt that he is too high risk to just intubate for endoscopy unless he rebleeds further. He has go t morbid obesity with significant hypoventilation syndrome. He is concerned that he would have troub le getting him off the ventilator. Presently he is eating well, has had no further bleeding. MEDICATIONS: Albuterol, Norvasc, Coreg, Rocephin, furosemide, Dulera inhaler, Protonix. PHYSICAL EXAMINATION: VITAL SIGNS: Temperature is 98.7, pulse 111 to 121, respirations 12. LUNGS: Lungs are clear. BODY HABITUS: Morbidly obese. ABDOMEN: Nontender. LABORATORY STUDIES: White count 7.4, hemoglobin 9.8, platelet count 90,000. BUN and creatinine are 68 and 189. ASSESSMENT: 1. Gastrointestinal bleed, resolved. At this time he is felt not to be a candidate for sedation for endoscopy in talking with his client services analyst. They do not want to have him intubated to have endosco py. They feel he will not get off of the ventilator. Also, they felt if he had any significant find ings, he would not be a candidate for surgery at this time. 2. Morbid obesity with hypoventilation syndrome secondary to this. 3. Probable sleep apnea. 4. At attempts even just for rectal exam in the bed yesterday with rolling him on his side, he desat urated to the low 80s. He would not be a candidate for even unsedated endoscopy. PLAN: 1. Would place him on PPIs routinely. 2. With regard to his atrial fibrillation, I think if he is not able to have endoscopy then stratify his bleeding risk, this should probably be stopped and he can go back to an aspirin a day. 3. If he has recurrent bleeding or significant weight loss or there is a change of management plans from a pulmonary standpoint, I would be more than willing to re-evaluate him for endoscopy. If he do es have acute bleeding he would need an urgent endoscopy and him and his understand this.
--- NOTE | 2017-10-04 13:45 | PRG ---
DATE OF SERVICE: 10/04/2017 Mr. Rodgers's events have been reviewed. He is no longer having any rectal bleeding. PHYSICAL EXAMINATION: VITAL SIGNS: He is afebrile, heart rate 111, respiratory rate is 20, oximetry is 93, blood pressure 108/65. LUNGS: Lungs are distant and clear. HEART: Regular rhythm. ABDOMEN: Soft. LABORATORY DATA: White count 7.4, hemoglobin 9.8, it was 10.8 yesterday, platelets 90,000. Sodium 1 36, potassium 5.5, chloride 94, bicarbonate 36, BUN 68, creatinine 1.89. IMPRESSION: 1. Lower gastrointestinal blood loss. 2. Inability to pass Noel. 3. Acute on chronic kidney disease. 4. Deconditioning and obesity. 5. Untreated sleep apnea. I suggested a sleep study in the past as an outpatient. He presented with a pCO2 of over 100. I hav e asked him to sleep with the airway support whenever he naps or sleeps at night while he is in the h ospital and we may need to set him up with an auto titrating device until we can get him a sleep stud y. Conservative approach at this point in time with regards to his gastrointestinal blood loss I thi nk is indicated. He is extremely high risk for sedation and would require intubation. His and the patient are both comfortable with this approach. GI continues to follow. I will continue to fol low as well while he is in the hospital.
[2017-10-04 14:24] LABS: Potassium 5.4 mmol/L (3.5-5.1)
[2017-10-04] MEDS: Sodium Chloride 0.9% 1,000 ML IV SCH ×2 (15:41→20:25)
[2017-10-04] MEDS: cefTRIAXone\\ROCEPHIN 1 GM, Syringe 0.4 ML in Sterile Water 9.6 ML SLOW IVP SCH (15:41)
[2017-10-04] MEDS: Azithromycin 500 MG in Sodium Chloride 0.9% 250 ML 250 ML IVPB SCH (16:16)
--- NOTE | 2017-10-04 16:52 | EKG ---
Test Reason : Blood Pressure : / mmHG Vent. Rate : 086 BPM Atrial Rate : 086 BPM P-R Int : 118 ms QRS Dur : 154 ms QT Int : 384 ms P-R-T Axes : -22 -51 012 degrees QTc Int : 459 ms A Fib Left axis deviation Right bundle branch block Nonspecific ST-T changes Abnormal ECG Confirmed by DR. Raymond GARNER ([id number]) on 10/04/2017 4:52:15 PM Referred By: JONA Confirmed By:DR. Raymond GARNER
[2017-10-05 05:26] LABS: Anion Gap 11 mmol/L (10-20); BUN (Urea Nitrogen) 48 mg/dL (8.4-25.7); Calc. Creatinine Clearance 105 mL/min (70-130); Calcium 8.1 mg/dL (7.8-10.44); Carbon Dioxide 32 mmol/L (23-31); Chloride 97 mmol/L (98-107); Estimated GFR-MDRD 55; Glucose 108 mg/dL (83-110); Potassium 4.6 mmol/L (3.5-5.1); Sodium 135 mmol/L (136-145)
[2017-10-05 05:35] LABS: #Eosinphils 0.1 thou/uL (0.0-0.7); #Lymphocytes 1.2 thou/uL (1.20-3.40); #Monocytes 0.7 thou/uL (0.11-0.59); #Neutrophils 4.8 thou/uL (1.40-6.50); %Basophils 0.1 % (0.0-1.0); %Eosinophils 0.8 % (0.0-10.0); %Lymphocytes 18.1 % (21.0-51.0); %Monocytes 9.9 % (0.0-10.0); %Neutrophils 71.2 % (42.0-75.0); Hemoglobin 9.4 g/dL (14.0-18.0); Mean Corpuscular HGB CONC 30.4 g/dL (32.0-36.0); Mean Corpuscular Hemoglobin 25.7 pg (27.0-31.0); Mean Corpuscular Volume 84.5 fl (80.0-94.0); Mean Platelet Volume 8.9 fL (7.4-10.4); Platelet Count 89 thou/uL (130-400); RBC Distribution Width 17.3 % (11.5-14.5); Red Blood Cell (RBC) Count 3.66 mill/uL (4.70-6.10); White Blood Cell (WBC) Count 6.8 thou/uL (4.8-10.8)
[2017-10-05] MEDS: Sodium Chloride 0.9% 1,000 ML IV SCH ×2 (05:57→12:45)
[2017-10-05] MEDS: Mometasone/Formoterol 120 PUFF INHALER INH SCH ×2 (06:58→18:21)
--- NOTE | 2017-10-05 08:06 | PRG ---
DATE OF SERVICE: 10/05/2017 SUBJECTIVE: The patient without complaints, at bedside. PHYSICAL EXAMINATION: VITAL SIGNS: Stable, afebrile, 97.6. I's and O's. The patient was given fluid challenge fluid bolus last night, 5470 in, 5550 out, negative 80 mL urine output 5550, clear dilute urine. ABDOMEN: Soft, obese, protuberant, nontender, nondistended. GENITOURINARY: Noel catheter secured. LABORATORY DATA: Hemoglobin stable at 9.4, creatinine improved from 1.8 to 1.2 , BUN 68 to 48. Urine culture is negative. CT results reviewed with patient and in detail demonstrating no evidence of hydronephrosis. IMPRESSION AND PLAN: 1. Mr. Rodgers is a 76-year-old male with history of morbid obesity, chronic obstructive pulmonary disease, acute respiratory failure. 2. History of gastrointestinal bleed; deemed high risk for anesthesia at this time on observation 3. History of tobacco abuse. 4. History of atrial fibrillation, Eliquis on hold. 5. History of gross hematuria secondary to traumatic Noel catheter placement. 6. Mild meatal stenosis. 7. Urinary retention of 700-800 mL, Noel catheter placed per cystoscopic assist due to false passage. Continue Flomax. Given false passage, Noel catheter trauma, he will require indwelling Noel catheter for 1-2 weeks. Per patient, possible disposition to medical floor today. Pending his disposition when medically stable, most likely the patient will be discharged with indwelling Noel catheter to leg bag for outpatient voiding trial. Elective cystoscopy. LORA
[2017-10-05] MEDS: Carvedilol 3.125 MG TAB PO SCH ×2 (08:35→21:04)
[2017-10-05] MEDS: Pantoprazole 40 MG VIAL IVP SCH ×2 (08:35→21:04)
[2017-10-05] MEDS: Tamsulosin HCl 0.4 MG CAP PO SCH (08:35)
--- NOTE | 2017-10-05 08:42 | PDOC.FM ---
- Subjective Subjective: Patient is feeling much better this AM. He reports that his breathing is doing good, but he doesn't like wearing the BiPAP mask at night. He denies any Chest pain or abdominal pain. He has still not had a BM since being here. - Objective MAR Reviewed: Yes Vital Signs & Weight: Vital Signs (12 hours) Temp Pulse Resp BP Pulse Ox 10/05/17 07:47 97.6 F 93 20 114/56 L 95 10/05/17 06:58 94 18 10/05/17 04:17 97.3 F L 94 27 H 123/76 100 10/05/17 02:22 99 22 H 97 10/05/17 00:55 102 H 20 100 10/05/17 00:14 97.7 F 105 H 25 H 117/68 97 10/04/17 22:24 99 16 98 Weight Weight 152.407 kg I&O: 10/04/17 10/05/17 10/06/17 06:59 06:59 06:59 Intake Total 1430 5470 Output Total 400 5550 Balance 1030 -80 Result Diagrams: 10/05/17 04:10 10/05/17 04:10 <Nikkie Uriarte - Last Filed: 10/05/17 11:37> - Objective Vital Signs & Weight: Vital Signs (12 hours) Temp Pulse Resp BP Pulse Ox 10/05/17 13:22 92 20 97 10/05/17 13:20 92 20 10/05/17 11:00 97.6 F 104 H 18 97 10/05/17 07:49 97.6 F 104 H 18 94 L 10/05/17 07:47 97.6 F 93 20 114/56 L 95 10/05/17 06:58 94 18 Weight Weight 152.407 kg I&O: 10/04/17 10/05/17 10/06/17 06:59 06:59 06:59 Intake Total 1430 5470 Output Total 400 5550 Balance 1030 -80 Result Diagrams: 10/05/17 04:10 10/05/17 04:10 <Chu Botello - Last Filed: 10/05/17 16:42> Phys Exam - Physical Examination Constitutional: NAD HEENT: moist MMs Respiratory: no wheezing, no rhonchi some rales in lung bases Cardiovascular: RRR, no significant murmur, no rub Gastrointestinal: soft, non-tender, no distention, positive bowel sounds Musculoskeletal: pulses present, edema present (1+ pitting edema in BLE) Neurological: non-focal, moves all 4 limbs Psychiatric: normal affect, A&O x 3 Skin: normal turgor, cap refill <2 seconds <Nikkie Uriarte - Last Filed: 10/05/17 11:37> Dx/Plan (1) Acute respiratory failure with hypercapnia Code(s): J96.02 - ACUTE RESPIRATORY FAILURE WITH HYPERCAPNIA Status: Acute (2) Respiratory acidosis Code(s): E87.2 - ACIDOSIS Status: Acute (3) Gastrointestinal bleed Code(s): K92.2 - GASTROINTESTINAL HEMORRHAGE, UNSPECIFIED Status: Acute QualifierTitle: GI bleed type/associated pathology: unspecified gastrointestinal hemorrhage type Qualified Code(s): K92.2 - Gastrointestinal hemorrhage, unspecified (4) KOREY (acute kidney injury) Code(s): N17.9 - ACUTE KIDNEY FAILURE, UNSPECIFIED Status: Acute (5) Hyperkalemia Code(s): E87.5 - HYPERKALEMIA Status: Resolved (6) CKD (chronic kidney disease) Code(s): N18.9 - CHRONIC KIDNEY DISEASE, UNSPECIFIED Status: Acute QualifierTitle: Chronic kidney disease stage: unspecified stage Qualified Code(s): N18.9 - Chronic kidney disease, unspecified (7) Normocytic anemia Code(s): D64.9 - ANEMIA, UNSPECIFIED Status: Acute (8) Former heavy tobacco smoker Code(s): Z87.891 - PERSONAL HISTORY OF NICOTINE DEPENDENCE Status: Acute (9) Morbid obesity Code(s): E66.01 - MORBID (SEVERE) OBESITY DUE TO EXCESS CALORIES Status: Acute (10) Hypertension Code(s): I10 - ESSENTIAL (PRIMARY) HYPERTENSION Status: Chronic QualifierTitle: Hypertension type: essential hypertension Qualified Code( s): I10 - Essential (primary) hypertension (11) Atrial fibrillation Code(s): I48.91 - UNSPECIFIED ATRIAL FIBRILLATION Status: Acute QualifierTitle: Atrial fibrillation type: unspecified Qualified Code(s): I48.91 - Unspecified atrial fibrillation - Plan Plan: 1. Acute Hypercapnic Respiratory Failure, likely 2/2 CAP vs Obesity Hypoventilation Syndrome The patient had findings suspicious for PNA on CXR. He was afebrile, but had 91 % Neutrophils and 3% bands. His WBC was elevated to 13.3, but has since normalized. He has an extensive smoking history. He has been evaluated by Dr. Sandoval with Pulmonology and found to have severe restrictive lung disease with superimposed mild obstructive lung disease. The patient is morbidly obese and likely has MAY and has been set up for a sleep study outpatient at the end of this month. ABG showed pH 7.17, pCO2 117. Urine strep pneumo and urine legionella antigens negative. -Pulmonology has been consulted, appreciate recs -BiPAP overnight with NC during the day, will wean off NC -Cover for CAP with Azithromycin day and Rocephin day -Will transfer to medical as pt is only using BiPAP at night at this time -Will consult CM to attempt to get pt a BiPAP at home 2. GI Bleeding The patient had dark stools, associated constipation over the past 2 weeks and BRBPR on 10/02. He has never been worked up for this before. H/H is stable. Iron and Ferritin were low. Patient has not had any further BM's since being hospitalized. -Dr. Arce with GI has been consulted, there is concern for doing scope under conscious sedation in this gentleman due to his respiratory status. Considering scope under general anesthesia when more stable from a respiratory standpoint. -Protonix 40mg IV BID -Hold eliquis and aspirin -During rounds pt informed us that he had a dark black BM 3. Acute Urinary Retention Patient had meatal stenosis, possible BPH, and a false passage in the urethra on cystoscopy. Patient had 700-800mL of post-void residual. He denies any urinary symptoms. -Urology has been consulted, appreciate recs -Noel successfully placed and will remain in place for minimum of 1-2 weeks per urology -Flomax for BPH 4. Normocytic Anemia Likely a combination of ACD and iron deficiency The patient has low iron and ferritin. -Started Iron 5. Hyperkalemia (resolved) Patient had initial elevated potassium with no EKG changes, this has trended up to 6.1, but has resolved with fluid resuscitation -Will continue to monitor closely with daily BMP's 6. A-fib Patient appears rate controlled at this time, has been in the 90s-low 100s -Will hold eliquis and aspirin 7. KOREY on CKD Patient appears to have a mild KOREY on top of his CKD. His Cr is improving s/p 1L NS bolus and NS @ 150. -Will d/c fluids now as pt has normal UOP and has worsening edema in his BLE. 8. HTN Patient has had low BP's to the 90's systolic since being admitted, so his home BP meds have been held BP has improved s/p 1L NS bolus yesterday and NS @ 150 -Will d/c fluids and continue to monitor BP closely 9. Morbid Obesity counseling. His body habitus is likely contributing to his restrictive lung disease. <Nikkie Uriarte - Last Filed: 10/05/17 11:37> Attending Addendum - Attending Addendum Date/Time: 10/05/17 1642 I personally evaluated the patient and discussed the management with Dr. Uriarte. I agree with the History, Examination, Assessment and Plan documented above with any addition or exceptions noted below. <Chu Botello - Last Filed: 10/05/17 16:42>
[2017-10-05] MEDS ORDERED: Magnesium Citrate 300 ML BOT PO SCH (11:15)
[2017-10-05] MEDS: Ferrous Sulfate 325 MG TAB PO SCH (13:15)
[2017-10-05] MEDS: cefTRIAXone\\ROCEPHIN 1 GM, Syringe 0.4 ML in Sterile Water 9.6 ML SLOW IVP SCH (17:18)
[2017-10-05] MEDS: Azithromycin 500 MG in Sodium Chloride 0.9% 250 ML 250 ML IVPB SCH (17:18)
--- NOTE | 2017-10-05 18:17 | PRG ---
DATE OF SERVICE: 10/05/2017 SUBJECTIVE: Quintin Rdogers had a bowel movement today; this was his first in 4 days, had some old blood mixed with it. He says he is feeling better. He is afebrile. He is still on 20/10 on BiPAP, but he is taking a nap , so I have cut the pressure to 15/10. OBJECTIVE: VITAL SIGNS: Heart rate 92, respiratory 20, oximetry is 97. LUNGS: Distant and clear. HEART: Regular rhythm. ABDOMEN: Soft. LABORATORY DATA: White count 6.8, hemoglobin 9.4, platelets 89,000. His hemoglobin is stable. Sodi um 135, potassium 4.6, chloride 97, bicarbonate 32, BUN 48, creatinine 1.27. IMPRESSION: 1. Untreated sleep apnea. 2. Gastrointestinal blood loss. 3. Difficulty passing a Noel, now with some small blood clots in the Noel, but for most part his u rine is clear. 4. Acute on chronic kidney disease. 5. Deconditioning obesity. PLAN: Continue with BiPAP whenever he sleeps. We will try to get him set up with some type of empir ic AutoPap. When he is discharged until we can get a sleep study.
[2017-10-05] MEDS: Furosemide 40 MG TAB PO SCH (21:04)
[2017-10-06 04:49] LABS: #Eosinphils 0.1 thou/uL (0.0-0.7); #Lymphocytes 0.8 thou/uL (1.20-3.40); #Monocytes 0.7 thou/uL (0.11-0.59); #Neutrophils 4.4 thou/uL (1.40-6.50); %Basophils 0.5 % (0.0-1.0); %Eosinophils 1.8 % (0.0-10.0); %Lymphocytes 13.7 % (21.0-51.0); %Monocytes 11.7 % (0.0-10.0); %Neutrophils 72.4 % (42.0-75.0); Hemoglobin 9.1 g/dL (14.0-18.0); Mean Corpuscular HGB CONC 29.8 g/dL (32.0-36.0); Mean Corpuscular Hemoglobin 25.8 pg (27.0-31.0); Mean Corpuscular Volume 86.8 fl (80.0-94.0); Mean Platelet Volume 9.2 fL (7.4-10.4); Platelet Count 85 thou/uL (130-400); RBC Distribution Width 17.3 % (11.5-14.5); Red Blood Cell (RBC) Count 3.54 mill/uL (4.70-6.10)
[2017-10-06] MEDS: Mometasone/Formoterol 120 PUFF INHALER INH SCH ×2 (06:59→23:20)
[2017-10-06 07:37] LABS: Anion Gap 10 mmol/L (10-20); BUN (Urea Nitrogen) 32 mg/dL (8.4-25.7); Calc. Creatinine Clearance 118 mL/min (70-130); Calcium 8.5 mg/dL (7.8-10.44); Carbon Dioxide 34 mmol/L (23-31); Chloride 98 mmol/L (98-107); Estimated GFR-MDRD 63; Glucose 106 mg/dL (83-110); Potassium 4.7 mmol/L (3.5-5.1); Sodium 137 mmol/L (136-145)
--- NOTE | 2017-10-06 07:41 | PRG ---
DATE OF SERVICE: 10/06/2017 INPATIENT PROGRESS NOTE SUBJECTIVE: The patient without complaints. Denies chest pain and shortness of breath. Has been transitioned to the medical floor. PHYSICAL EXAMINATION: VITAL SIGNS: Stable, afebrile, 93% on 2 liters fluid. I's and O's 2300 out of clear dilute urine, he is 1.8 liters negative. ABDOMEN: Soft, obese, protuberant. GENITOURINARY: Noel catheter demonstrates some old encrusted blood at the catheter meatus site, this was cleaned, catheter resecured. PERTINENT LABORATORY DATA: Hemoglobin stable at 9.1, platelet count 85. Renal function yesterday 1.2. Final urine culture negative. IMPRESSION AND PLAN: Mr. Rodgers is a 76-year-old male with history of: 1. Morbid obesity. 2. Chronic obstructive pulmonary disease. 3. Tobacco abuse. 4. Atrial fibrillation, Eliquis on hold secondary to gastrointestinal bleed. 5. History of dark tarry stool, gastrointestinal workup on hold due to patient' s severe chronic obstructive pulmonary disease and acute respiratory failure. 6. Gross hematuria secondary to traumatic Noel catheter placement. 7. Mild meatal stenosis. 8. History of urinary retention 700-800 mL, Noel catheter placed over a cystoscopic assist due to false passage. No change in disposition, we will follow up with me at a later date for a voiding trial. Patient will most likely be discharged to [facility] facility. When disposition final, we will arrange follow up with my office for a voiding trial. Continue Flomax. From a urologic perspective, patient does not require antibiotic therapy. MTDD
[2017-10-06] MEDS: Ferrous Sulfate 325 MG TAB PO SCH (08:51)
[2017-10-06] MEDS: Furosemide 40 MG TAB PO SCH ×2 (08:51→20:24)
[2017-10-06] MEDS: Tamsulosin HCl 0.4 MG CAP PO SCH (08:51)
[2017-10-06] MEDS: Pantoprazole 40 MG VIAL IVP SCH ×2 (08:52→20:22)
[2017-10-06] MEDS: Amlodipine 5 MG TAB PO SCH ×2 (08:59→20:23)
[2017-10-06] MEDS: Carvedilol 3.125 MG TAB PO SCH ×2 (09:00→20:23)
[2017-10-06] MEDS ORDERED: Polyethylene Glycol 3350 17 GM Packet PO SCH (09:00)
--- NOTE | 2017-10-06 09:00 | PDOC.FM ---
- Subjective Subjective: Patient doing well this AM. He denies SOB on room air. He denies any BM since yesterday. He is eating well. He used BiPAP overnight. - Objective MAR Reviewed: Yes Vital Signs & Weight: Vital Signs (12 hours) Temp Pulse Resp BP Pulse Ox 10/06/17 06:56 94 22 H 94 L 10/06/17 05:00 98.9 F 94 18 124/84 94 L 10/06/17 01:02 99.0 F 99 18 100/63 92 L 10/05/17 23:03 104 H 25 H 93 L 10/05/17 23:01 104 H Weight Weight 152.407 kg I&O: 10/05/17 10/06/17 10/07/17 06:59 06:59 06:59 Intake Total 5470 500 Output Total 5550 2300 Balance -80 -1800 Result Diagrams: 10/06/17 04:04 10/06/17 04:04 <Nikkie Uriatre - Last Filed: 10/06/17 11:27> - Objective Vital Signs & Weight: Vital Signs (12 hours) Temp Pulse Resp BP BP BP Pulse Ox 10/06/17 16:58 97.6 F 97 20 97/64 88 L 10/06/17 13:35 107 H 26 H 94 L 10/06/17 11:00 98.1 F 107 H 22 H 122/73 94 L 10/06/17 09:39 103/72 10/06/17 08:59 104 H 98/65 10/06/17 08:00 98.6 F 104 H 21 H 93 L 10/06/17 07:00 98.6 F 112 H 22 H 98/65 87 L 10/06/17 06:56 94 22 H 94 L Pulse Ox 10/06/17 16:58 10/06/17 13:35 10/06/17 11:00 10/06/17 09:39 93 L 10/06/17 08:59 10/06/17 08:00 10/06/17 07:00 10/06/17 06:56 Weight Weight 152.407 kg I&O: 10/05/17 10/06/17 10/07/17 06:59 06:59 06:59 Intake Total 5470 500 Output Total 5550 2300 1750 Balance -80 -1800 -1750 Result Diagrams: 10/06/17 07:04 10/06/17 04:04 <AyanChu A - Last Filed: 10/06/17 17:12> Phys Exam - Physical Examination Constitutional: NAD (morbidly obese) HEENT: moist MMs Respiratory: no wheezing, no rales, no rhonchi, clear to auscultation bilateral Cardiovascular: no significant murmur, no rub, irregular Gastrointestinal: soft, non-tender, no distention, positive bowel sounds Musculoskeletal: pulses present, edema present (2+ pitting edema to bilateral knees) Neurological: non-focal, moves all 4 limbs Psychiatric: normal affect, A&O x 3 Skin: no rash, cap refill <2 seconds <Nikkie Uriarte - Last Filed: 10/06/17 11:27> Dx/Plan (1) Acute respiratory failure with hypercapnia Code(s): J96.02 - ACUTE RESPIRATORY FAILURE WITH HYPERCAPNIA Status: Acute (2) Respiratory acidosis Code(s): E87.2 - ACIDOSIS Status: Acute (3) Gastrointestinal bleed Code(s): K92.2 - GASTROINTESTINAL HEMORRHAGE, UNSPECIFIED Status: Acute QualifierTitle: GI bleed type/associated pathology: unspecified gastrointestinal hemorrhage type Qualified Code(s): K92.2 - Gastrointestinal hemorrhage, unspecified (4) KOREY (acute kidney injury) Code(s): N17.9 - ACUTE KIDNEY FAILURE, UNSPECIFIED Status: Acute (5) Hyperkalemia Code(s): E87.5 - HYPERKALEMIA Status: Resolved (6) CKD (chronic kidney disease) Code(s): N18.9 - CHRONIC KIDNEY DISEASE, UNSPECIFIED Status: Acute QualifierTitle: Chronic kidney disease stage: unspecified stage Qualified Code(s): N18.9 - Chronic kidney disease, unspecified (7) Normocytic anemia Code(s): D64.9 - ANEMIA, UNSPECIFIED Status: Acute (8) Former heavy tobacco smoker Code(s): Z87.891 - PERSONAL HISTORY OF NICOTINE DEPENDENCE Status: Acute (9) Morbid obesity Code(s): E66.01 - MORBID (SEVERE) OBESITY DUE TO EXCESS CALORIES Status: Acute (10) Hypertension Code(s): I10 - ESSENTIAL (PRIMARY) HYPERTENSION Status: Chronic QualifierTitle: Hypertension type: essential hypertension Qualified Code( s): I10 - Essential (primary) hypertension (11) Atrial fibrillation Code(s): I48.91 - UNSPECIFIED ATRIAL FIBRILLATION Status: Acute QualifierTitle: Atrial fibrillation type: unspecified Qualified Code(s): I48.91 - Unspecified atrial fibrillation (12) Obesity hypoventilation syndrome Code(s): E66.2 - MORBID (SEVERE) OBESITY WITH ALVEOLAR HYPOVENTILATION Status : Acute (13) MAY (obstructive sleep apnea) Code(s): G47.33 - OBSTRUCTIVE SLEEP APNEA (ADULT) (PEDIATRIC) Status: Suspected - Plan Plan: 1. Acute Hypercapnic Respiratory Failure, likely 2/2 CAP vs Obesity Hypoventilation Syndrome with suspective MAY The patient had findings suspicious for PNA on CXR. He was afebrile, but had 91 % Neutrophils and 3% bands. His WBC was elevated to 13.3, but has since normalized. He has an extensive smoking history. He has been evaluated by Dr. Sandoval with Pulmonology and found to have severe restrictive lung disease with superimposed mild obstructive lung disease. The patient is morbidly obese and likely has MAY and has been set up for a sleep study outpatient at the end of this month. ABG showed pH 7.17, pCO2 117. Urine strep pneumo and urine legionella antigens negative. -Pulmonology has been consulted, appreciate recs -BiPAP overnight -Cover for CAP with Azithromycin day 5 of 5 and Rocephin day 5 of 5 -Will consult CM to attempt to get pt a BiPAP at home as this patient will become severely hypercapnic again if sent home without pressure support while asleep. The patient is at risk for not waking up without BiPAP at night due to the extent of his disease. The patient needs BiPAP until he can get an official sleep study. 2. GI Bleeding The patient had dark stools, associated constipation over the past 2 weeks and BRBPR on 10/02. He has never been worked up for this before. H/H is stable. Iron and Ferritin were low. Patient has not had any further BM's since being hospitalized. -Dr. Arce with GI has been consulted, there is concern for doing scope in this patient due to his body habitus and his respiratory disease, will manage conservatively at this time. -Protonix 40mg IV BID -Hold eliquis and aspirin 3. Acute Urinary Retention Patient had meatal stenosis, possible BPH, and a false passage in the urethra on cystoscopy. Patient had 700-800mL of post-void residual. He denies any urinary symptoms. -Urology has been consulted, appreciate recs -Noel successfully placed and will remain in place for minimum of 1-2 weeks per urology -Flomax for BPH 4. Normocytic Anemia Likely a combination of ACD and iron deficiency The patient has low iron and ferritin. -Started Iron -Check peripheral smear and retic count 5. Hyperkalemia (resolved) Patient had initial elevated potassium with no EKG changes, this has trended up to 6.1, but has resolved with fluid resuscitation -Will continue to monitor closely with daily BMP's 6. A-fib Patient appears rate controlled at this time, has been in the 90s-low 100s -Will hold eliquis and aspirin 7. KOREY on CKD Patient appears to have a mild KOREY on top of his CKD. His Cr is improving s/p 1L NS bolus and NS @ 150. -improved, continue to monitor 8. HTN Patient has had low BP's to the 90's systolic since being admitted, so his home BP meds have been held BP has improved s/p 1L NS bolus and NS @ 150 -monitor BP closely 9. Morbid Obesity counseling. His body habitus is likely contributing to his restrictive lung disease. 10. Obesity Hypoventilation Syndrome The patient had obesity hypoventilation syndrome and it caused him to go into acute hypercapnic respiratory failure. The patient has restrictive lung disease due to his body habitus. He needs a BiPAP to provide pressure support as the patient's disease is severe and life threatening. 11. Obstructive Sleep Apnea The patient has suspected MAY 2/2 his body habitus and his hypercapnia. The patient is likely severe and has been followed by pulmonology outpatient and setup for an outpatient sleep study at the end of this month, but the patient cannot wait until the end of the month to be started on BiPAP due to his severe hypercapnia and his risk for continued episodes of this. He is at risk for hypoxia, hypercapnia, apnea, and if he does not have a BiPAP at night. -Will attempt to get him set up with BiPAP in the interim before his sleep study based on the settings he has been using in the hospital. <Nikkie Uriarte - Last Filed: 10/06/17 11:27> Attending Addendum - Attending Addendum Date/Time: 10/06/17 9145 I personally evaluated the patient and discussed the management with Dr. Uriarte. I agree with the History, Examination, Assessment and Plan documented above with any addition or exceptions noted below. <Chu Botello - Last Filed: 10/06/17 17:12>
[2017-10-06 11:28] LABS: Reticulocyte Count 2.7 % (0.5-1.5)
[2017-10-06 11:51] LABS: Band 2 % (5-11); Hemoglobin 9.6 g/dL (14.0-18.0); Lymphocytes 22 % (21-51); MDiff Complete? YES; Mean Corpuscular HGB CONC 30.4 g/dL (32.0-36.0); Mean Corpuscular Hemoglobin 25.8 pg (27.0-31.0); Mean Corpuscular Volume 84.9 fl (80.0-94.0); Mean Platelet Volume 9.2 fL (7.4-10.4); Monocytes 6 % (0-10); Neutrophil 70 % (42-75); PLT Morphology Comment Appears Decreased; Platelet Count 93 thou/uL (130-400); RBC Distribution Width 17.2 % (11.5-14.5); Red Blood Cell (RBC) Count 3.72 mill/uL (4.70-6.10); White Blood Cell (WBC) Count 6.8 thou/uL (4.8-10.8)
--- NOTE | 2017-10-06 15:04 | PRG ---
DATE OF SERVICE: 10/06/2017 SUBJECTIVE: Mr. Rodgers is doing well. His vital signs are stable. He has had no more bleeding. OBJECTIVE: VITAL SIGNS: He is afebrile, heart rate 107, respiratory rate 22, oximetry is 94, blood pressure 122 /73. GENITOURINARY: His urine is yellow. His Noel will stay in at least another week per the family's r elaying of the urologist's information. LUNGS: His lungs are clear today. HEART: Regular rhythm. ABDOMEN: Soft. ASSESSMENT: 1. Acute on chronic respiratory failure with hypercarbia and hypoxemia. 2. Untreated sleep apnea. 3. Probable lower gastrointestinal bleed, not recurrent, off anticoagulants for atrial fibrillation. 4. Atrial fibrillation, on only aspirin. 5. Benign prostatic hypertrophy. 6. Deconditioning and obesity. PLAN: Go to rehabilitation. I will see him back in followup in the office 2-3 weeks after his disch arge from rehabilitation. Nocturnal ventilatory support is currently being set up. I do feel his ne eds will not be met by just conventional CPAP after observing for several days in the hospital.
[2017-10-06] MEDS: Azithromycin 500 MG in Sodium Chloride 0.9% 250 ML 250 ML IVPB SCH (15:14)
[2017-10-06] MEDS: cefTRIAXone\\ROCEPHIN 1 GM, Syringe 0.4 ML in Sterile Water 9.6 ML SLOW IVP SCH (15:20)
--- NOTE | 2017-10-06 20:42 | PRG ---
DATE OF SERVICE: 10/05/2017 SUBJECTIVE: Mr. Rodgers has had no bleeding. OBJECTIVE: VITAL SIGNS: Temperature is 98, pulse 104 and blood pressure 98/65. GENERAL: He is overweight. ABDOMEN: Very protuberant abdomen. No palpable organs. EXTREMITIES: Reveal brawny edema. He has a BiPAP on. LABORATORY DATA: Hemoglobin is 9.4, white count is 6.8 and platelet count is 89,000. ASSESSMENT: 1. Gastrointestinal bleed, resolved, likely related to recent induction of anticoagulation with Eliq uis. 2. Morbid obesity with hypoventilation syndrome secondary to body habitus. 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 Even with the general anesthetic, Dr. Sandoval was concerned that he would become cindy tilator dependent. At this time, there is not an option for unsedated endoscopy as even rolling him on his side, he desaturates into the low 80s. At this time, we are going to hold off on endoscopy. The patient and his family understand we may be missing significant lesions, even malignancy. If he has further bleeding in the future, we will have to reconsider, but at this time, the advice of his p ulmonologist is for holding off on endoscopies. We will be available to reevaluate if there are sign s of acute bleeding.
[2017-10-07 04:28] LABS: #Eosinphils 0.1 thou/uL (0.0-0.7); #Monocytes 0.8 thou/uL (0.11-0.59); #Neutrophils 4.3 thou/uL (1.40-6.50); %Basophils 0.2 % (0.0-1.0); %Eosinophils 1.7 % (0.0-10.0); %Lymphocytes 15.7 % (21.0-51.0); %Neutrophils 69.5 % (42.0-75.0); Hemoglobin 9.1 g/dL (14.0-18.0); Mean Corpuscular HGB CONC 30.3 g/dL (32.0-36.0); Mean Corpuscular Hemoglobin 26.2 pg (27.0-31.0); Mean Corpuscular Volume 86.7 fl (80.0-94.0); Mean Platelet Volume 8.8 fL (7.4-10.4); Platelet Count 85 thou/uL (130-400); RBC Distribution Width 16.9 % (11.5-14.5); Red Blood Cell (RBC) Count 3.49 mill/uL (4.70-6.10); White Blood Cell (WBC) Count 6.2 thou/uL (4.8-10.8)
[2017-10-07 04:44] LABS: Anion Gap 10 mmol/L (10-20); BUN (Urea Nitrogen) 27 mg/dL (8.4-25.7); Calc. Creatinine Clearance 125 mL/min (70-130); Calcium 8.4 mg/dL (7.8-10.44); Carbon Dioxide 35 mmol/L (23-31); Chloride 97 mmol/L (98-107); Estimated GFR-MDRD 67; Glucose 107 mg/dL (83-110); Potassium 4.2 mmol/L (3.5-5.1); Sodium 138 mmol/L (136-145)
[2017-10-07] MEDS: Mometasone/Formoterol 120 PUFF INHALER INH SCH (06:33)
--- NOTE | 2017-10-07 08:04 | PRG ---
DATE OF SERVICE: 10/07/2017 INPATIENT PROGRESS NOTE SUBJECTIVE: The patient is feeling fatigued. Otherwise, no complaints. has sat at bedside. PHYSICAL EXAMINATION: VITAL SIGNS: Stable, afebrile, 94% on 2 liters. I's and O's 4350 of clear yellow urine. He is negative 3.9 liters. PERTINENT LABORATORY DATA: Hemoglobin stable at 9.1, platelet count 85. Renal function is stable with creatinine of 1.07. Final urine culture negative. IMAGING DATA: CT of the abdomen and pelvis stone protocol with no evidence of significant pathology. IMPRESSION AND PLAN: 1. Mr. Rodgers is a 76-year-old male admitted for acute gastrointestinal bleed, on clinical observation given high risk of anesthesia event due to severe chronic obstructive pulmonary disease. 2. Morbid obesity. 3. Tobacco abuse. 4. History of atrial fibrillation, Eliquis on hold secondary to gastrointestinal bleed. 5. Thrombocytopenia. Continue to monitor. 6. History of gross hematuria secondary to traumatic Noel catheter placement, cystoscopic assist required for Noel catheter placement due to false passage. 7. History of retention, 700-800 mL. 8. Mild meatal stenosis. The patient appears to be cleared from Pulmonology to transfer to rehabilitation. From a urologic perspective, patient may be discharged to rehab at any time. I do recommend he continue his indwelling Noel catheter. Followup appointment with me in 2 weeks on 10/27/2017 for a voiding trial. Patient must be discharged with his indwelling Noel catheter to gravity bag. It is secured x2, instructions regarding no manipulation of the stat locks. Continue Flomax. Case management consult to assist in transportation to my office for a voiding trial. Plan elective restaging cystoscopy in 2-3 months. We will sign off. Call if any questions or concerns. [facility]RA
--- NOTE | 2017-10-07 09:12 | PDOC.FM ---
Addendum entered and electronically signed by Nikkie Uriarte MD 10/07/17 11:40: After further assessment of the patient and his respiratory status, I am ordering volume ventilation for nocturnal and as needed daytime use for symptom management of Obesity Hypoventilation Syndrome. Traditional home BiPAP is insufficient. Obesity Hypoventilation Syndrome is the major contributing factor to the patient's chronic hypoxic, hypercapnic respiratory failure. Original Note: - Subjective Subjective: Patient doing well this AM. He reports that he does not have any SOB, but his O2 sats are 85-88% on 2L while I was evaluating him. The patient used BiPAP overnight. He denies any further BM's. He denies any chest pain. He is tolerating PO well. - Objective MAR Reviewed: Yes Vital Signs & Weight: Vital Signs (12 hours) Temp Pulse Resp BP BP Pulse Ox 10/07/17 08:00 97.7 F 91 24 H 122/69 91 L 10/07/17 06:35 92 16 10/07/17 04:44 95 16 97 10/07/17 04:31 98.5 F 92 18 121/76 94 L 10/07/17 00:03 104 H 22 H 95 10/07/17 00:00 97.8 F 86 18 114/72 93 L 10/06/17 23:22 96 18 96 Weight Weight 152.407 kg I&O: 10/06/17 10/07/17 10/08/17 06:59 06:59 06:59 Intake Total 500 420 Output Total 2300 4350 Balance -1800 -3930 Result Diagrams: 10/07/17 03:55 10/07/17 03:55 <Nikkie Uriarte - Last Filed: 10/07/17 10:50> - Objective Vital Signs & Weight: Vital Signs (12 hours) Temp Pulse Resp BP BP Pulse Ox 10/07/17 11:31 97.7 F 63 22 H 116/64 10/07/17 09:19 109 H 122/69 10/07/17 08:00 97.7 F 109 H 24 H 122/69 92 L 10/07/17 06:35 92 16 10/07/17 04:44 95 16 97 10/07/17 04:31 98.5 F 92 18 121/76 94 L Weight Weight 152.407 kg I&O: 10/06/17 10/07/1710/08/18 06:59 06:59 06:59 Intake Total 500 420 Output Total 2300 4350 Balance -1800 -3930 Result Diagrams: 10/07/17 03:55 10/07/17 03:55 <Chu Botello - Last Filed: 10/07/17 13:48> Phys Exam - Physical Examination Constitutional: NAD HEENT: moist MMs Respiratory: no wheezing, no rhonchi rales present at bilateral lung bases, coarse breath sounds Cardiovascular: RRR, no significant murmur, no rub Gastrointestinal: soft, non-tender, no distention, positive bowel sounds morbidly obese Musculoskeletal: pulses present, edema present (2+ pitting edema to bilateral knees) Neurological: normal sensation, moves all 4 limbs Psychiatric: normal affect, A&O x 3 Skin: normal turgor, cap refill <2 seconds <Nikkie Uriarte - Last Filed: 10/07/17 10:50> Dx/Plan (1) Acute respiratory failure with hypercapnia Code(s): J96.02 - ACUTE RESPIRATORY FAILURE WITH HYPERCAPNIA Status: Acute (2) Respiratory acidosis Code(s): E87.2 - ACIDOSIS Status: Acute (3) Gastrointestinal bleed Code(s): K92.2 - GASTROINTESTINAL HEMORRHAGE, UNSPECIFIED Status: Acute QualifierTitle: GI bleed type/associated pathology: unspecified gastrointestinal hemorrhage type Qualified Code(s): K92.2 - Gastrointestinal hemorrhage, unspecified (4) KOREY (acute kidney injury) Code(s): N17.9 - ACUTE KIDNEY FAILURE, UNSPECIFIED Status: Acute (5) Hyperkalemia Code(s): E87.5 - HYPERKALEMIA Status: Resolved (6) CKD (chronic kidney disease) Code(s): N18.9 - CHRONIC KIDNEY DISEASE, UNSPECIFIED Status: Acute QualifierTitle: Chronic kidney disease stage: unspecified stage Qualified Code(s): N18.9 - Chronic kidney disease, unspecified (7) Normocytic anemia Code(s): D64.9 - ANEMIA, UNSPECIFIED Status: Acute (8) Former heavy tobacco smoker Code(s): Z87.891 - PERSONAL HISTORY OF NICOTINE DEPENDENCE Status: Acute (9) Morbid obesity Code(s): E66.01 - MORBID (SEVERE) OBESITY DUE TO EXCESS CALORIES Status: Acute (10) Hypertension Code(s): I10 - ESSENTIAL (PRIMARY) HYPERTENSION Status: Chronic QualifierTitle: Hypertension type: essential hypertension Qualified Code( s): I10 - Essential (primary) hypertension (11) Atrial fibrillation Code(s): I48.91 - UNSPECIFIED ATRIAL FIBRILLATION Status: Acute QualifierTitle: Atrial fibrillation type: unspecified Qualified Code(s): I48.91 - Unspecified atrial fibrillation (12) Obesity hypoventilation syndrome Code(s): E66.2 - MORBID (SEVERE) OBESITY WITH ALVEOLAR HYPOVENTILATION Status : Acute (13) MAY (obstructive sleep apnea) Code(s): G47.33 - OBSTRUCTIVE SLEEP APNEA (ADULT) (PEDIATRIC) Status: Suspected (14) Thrombocytopenia Code(s): D69.6 - THROMBOCYTOPENIA, UNSPECIFIED Status: Acute - Plan Plan: 1. Acute Hypercapnic Respiratory Failure, likely 2/2 CAP vs Obesity Hypoventilation Syndrome with suspective MAY The patient had findings suspicious for PNA on CXR. He was afebrile, but had 91 % Neutrophils and 3% bands. His WBC was elevated to 13.3, but has since normalized. He has an extensive smoking history. He has been evaluated by Dr. Sandoval with Pulmonology and found to have severe restrictive lung disease with superimposed mild obstructive lung disease. The patient is morbidly obese and likely has MAY and has been set up for a sleep study outpatient at the end of this month. s/p 5 days of rocephin and azithromycin. ABG showed pH 7.17, pCO2 117. Urine strep pneumo and urine legionella antigens negative. -Pulmonology has been consulted, appreciate recs -BiPAP overnight -Will consult CM to attempt to get pt a BiPAP at home as this patient will become severely hypercapnic again if sent home without pressure support while asleep. The patient is at risk for not waking up without BiPAP at night due to the extent of his disease. The patient needs BiPAP until he can get an official sleep study. -Will give an extra dose of lasix today as patient appears mildly volume overloaded and could be contributing to his hypoxia 2. GI Bleeding The patient had dark stools, associated constipation over the past 2 weeks and BRBPR on 10/02. He has never been worked up for this before. H/H is stable. Iron and Ferritin were low. Patient has not had any further BM's since being hospitalized. -Dr. Arce with GI has been consulted, there is concern for doing scope in this patient due to his body habitus and his respiratory disease, will manage conservatively at this time. The Hb has been slowly downtrending from 11->9.1 -Will continue to monitor with daily CBC's even at the rehab facility. -Transfuse if Hb <7 or massive GI bleeding evident. -Protonix 40mg IV BID -Hold eliquis and aspirin 3. Acute Urinary Retention Patient had meatal stenosis, possible BPH, and a false passage in the urethra on cystoscopy. Patient had 700-800mL of post-void residual. He denies any urinary symptoms. -Urology has been consulted, appreciate recs -Noel successfully placed and will remain in place for minimum of 1-2 weeks per urology -Flomax for BPH 4. Normocytic Anemia Likely a combination of ACD and iron deficiency The patient has low iron and ferritin. Peripheral smear showed normocytic anemia, no abnormal cells. Reticulocyte index is 1.35, which is hypoproliferative. -Started Iron 5. Hyperkalemia (resolved) Patient had initial elevated potassium with no EKG changes, this has trended up to 6.1, but has resolved with fluid resuscitation -Will continue to monitor closely with daily BMP's 6. A-fib Patient appears rate controlled at this time, has been in the 90s-low 100s -Will hold eliquis and aspirin 7. KOREY on CKD Patient appears to have a mild KOREY on top of his CKD. His Cr is improving s/p 1L NS bolus and NS @ 150. -improved, continue to monitor 8. HTN Patient has had low BP's to the 90's systolic since being admitted, so his home BP meds have been held BP has improved s/p 1L NS bolus and NS @ 150 -monitor BP closely 9. Morbid Obesity counseling. His body habitus is likely contributing to his restrictive lung disease. 10. Obesity Hypoventilation Syndrome The patient had obesity hypoventilation syndrome and it caused him to go into acute hypercapnic respiratory failure. The patient has restrictive lung disease due to his body habitus. He needs a BiPAP to provide pressure support as the patient's disease is severe and life threatening. 11. Obstructive Sleep Apnea The patient has suspected MAY 2/2 his body habitus and his hypercapnia. The patient is likely severe and has been followed by pulmonology outpatient and setup for an outpatient sleep study at the end of this month, but the patient cannot wait until the end of the month to be started on BiPAP due to his severe hypercapnia and his risk for continued episodes of this. He is at risk for hypoxia, hypercapnia, apnea, and if he does not have a BiPAP at night. -Will attempt to get him set up with BiPAP in the interim before his sleep study based on the settings he has been using in the hospital. 12. Thrombocytopenia The patient's baseline platelet count is in the 120's, but is has been slowly downtrending and is now 85, this could be 2/2 blood loss, but his reticulocyte index is also hypoproliferative at 1.35. He has no petechiae. Peripheral smear showed no abnormal platelets, but just decreased number. <Nikkie Uriarte - Last Filed: 10/07/17 10:50> Attending Addendum - Attending Addendum Date/Time: 10/07/17 [id number] I personally evaluated the patient and discussed the management with Dr. Uriarte. I agree with the History, Examination, Assessment and Plan documented above with any addition or exceptions noted below. <Chu Botello - Last Filed: 10/07/17 13:48>
[2017-10-07] MEDS: Pantoprazole 40 MG VIAL IVP SCH (09:18)
[2017-10-07] MEDS: Carvedilol 3.125 MG TAB PO SCH (09:18)
[2017-10-07] MEDS: Tamsulosin HCl 0.4 MG CAP PO SCH (09:18)
[2017-10-07] MEDS: Ferrous Sulfate 325 MG TAB PO SCH (09:18)
[2017-10-07] MEDS: Amlodipine 5 MG TAB PO SCH (09:19)
[2017-10-07] MEDS: Furosemide 40 MG TAB PO SCH (09:19)
[2017-10-07] MEDS ORDERED: Furosemide 40 MG/4 ML VIAL SLOW IVP SCH (09:30)
--- NOTE | 2017-10-07 10:22 | PRG ---
DATE OF SERVICE: 10/07/2017 Mr. Rodgers says he is feeling well. PHYSICAL EXAMINATION: VITAL SIGNS: He is afebrile. His heart rate is 71, respiratory rate 24, oximetry is 91 on 2 liters, blood pressure 122/69. He is not getting out of bed for meals. LUNGS: His lungs are clear. HEART: Regular rhythm. ABDOMEN: Abdomen is soft. He reportedly walked a short distance yesterday. LABORATORY: White count 6.2, hemoglobin 9.1, platelets 85,000. Sodium 138, potassium 4.2, chloride 97, bicarbonate 35, BUN 27, creatinine 1.07. IMPRESSION: 1. Chronic respiratory failure. 2. Obesity hypoventilation. 3. Difficulty passing the Noel, there is clear yellow urine in his Noel now. 4. Blood loss anemia. Hopefully from a diverticular bleed. 5. Borderline thrombocytopenia. 6. Acute on chronic kidney dysfunction with his bleeding, now with a normal renal function. PLAN: Out of bed with all meals. Continue physical therapy. Placement in rehab.
[2017-10-07 12:37] LABS: HIV (1/2) Antibody/Antigen Non-Reactive (NonReactive); HIV 1/2 INDEX 0.16 S/CO (<1.00); Hep C IgG Ab Non-Reactive (NonReactive); Hep C Index 0.11 S/CO (0-0.79)
[2017-10-07 16:19] VITALS: BP 122/76; TEMP 98.2
--- NOTE | 2017-10-08 15:36 | DIS-2 ---
DATE OF ADMISSION: 10/02/2017 DATE OF DISCHARGE: 10/07/2017 ADMITTING RESIDENT: Dr. Nikkie Uriarte. DISCHARGE RESIDENT: Dr. Nikkie Uriarte. ADMITTING ATTENDING: Dr. Geremias Ahumada. DISCHARGE ATTENDING: Dr. Chu Botello. CONSULTS: Dr. Sandoval with pulmonology, Dr. Arce with gastroenterology, Dr. Cruz with Urology. PROCEDURES: None. IMAGIN. Chest x-ray showed right basilar atelectasis versus infiltrate and cardiomegaly. 2. Abdomen and pelvis CT showed small right pleural effusion, bibasilar atelectasis/consolidation more prominent on the right. No evidence of hydronephrosis or urinary tract calculus. Bladder is contracted with a Noel catheter in place. PRIMARY DIAGNOSES: 1. Acute hypoxic hypercapnic respiratory failure. 2. Gastrointestinal bleed. 3. Acute urinary retention. 4. Hyperkalemia. 5. Acute kidney injury on chronic kidney disease III. 6. Thrombocytopenia. 7. Community Acquired Pneumonia SECONDARY DIAGNOSES: 1. Normocytic anemia. 2. Atrial fibrillation. 3. Hypertension. 4. Morbid obesity. 5. Obesity hypoventilation syndrome. 6. Obstructive sleep apnea. DISCHARGE MEDICATIONS: 1. Amlodipine 5 mg b.i.d. 2. Symbicort 160/4.5 one puff inhaled b.i.d. 3. Carvedilol 3.125 mg p.o. b.i.d. 4. Ferrous sulfate 325 mg p.o. q.a.m. with meals. 5. Furosemide 40 mg p.o. b.i.d. 6. DuoNeb 3 mL nebulized q.6 hours p.r.n. 7. Lisinopril 10 mg p.o. b.i.d. 8. Protonix 40 mg p.o. b.i.d. 9. Tamsulosin 0.4 mg p.o. daily. DISCONTINUED MEDICATIONS: Eliquis and aspirin. HISTORY OF PRESENT ILLNESS AND HOSPITAL COURSE: This is a 76-year-old male with past medical history of atrial fibrillation, morbid obesity, and hypertension who presented to the ER complaining of a GI bleed. The patient was found to be severely hypercapnic and somnolent and initially had a pH of 7.17 and pCO2 of 114 on ABG. The patient was started on BiPAP. The patient had been seeing Dr. Sandoval as an outpatient and was being evaluated for concern for obesity hypoventilation syndrome and obstructive sleep apnea. The patient was set up for sleep study to be done at the end of September. The patient had not yet been set up with outpatient positive pressure support at night with either BiPAP or CPAP or another device. The patient's initial complaint of a GI bleed was found to be stable at the time, he was FOBT positive; however, his hemoglobin and hematocrit were stable and he was not having any further bowel movements or actively bleeding. The patient was started on Protonix and GI was consulted; however, the patient needed to be stabilized from a respiratory standpoint. The patient was admitted to the [facility] and continued on continuous BiPAP and showed significant improvement in his mentation as well as his CO2. The patient of note had an initial concern for possible community-acquired pneumonia, so he was treated with 5 days of Rocephin and azithromycin. For this , he was given a bolus of fluids as well as maintenance fluids to help with some issues with acute urinary retention that happened on his first day of hospitalization as well as acute kidney injury. The patient had not been able to urinate and was due to void, but reported not feeling the urge to void or needing to go so and attempted a Noel placement was made; however, this was unsuccessful and Neurology ended up being consulted and a cystoscopy was done and the patient was found to have a false passage and a mild meatal stenosis. The patient had a Noel placed that Urology recommended needed to stay in place for 1-2 weeks and then would be reevaluated by Urology at that time. The patient was successfully weaned off BiPAP during the day on his second day of hospitalization and was able to be on nasal cannula and then even on room air later that morning; however, required pressure support during the night due to obesity hypoventilation syndrome. As the patient was stabilized from a pulmonology standpoint, GI evaluated the patient and recommended that the patient would not be safe to undergo conscious sedation due to his respiratory problems at this time and he would be difficult to be weaned if he was intubated under general anesthesia, so it was determined that the patient would be monitored closely and if need to be, he would undergo a colonoscopy or EGD; however, this should be avoided if that all possible. This was discussed extensively with patient and his and they were both in understanding of this decision. Eliquis and aspirin were held throughout the entire hospitalization and even after discharge due to the patient's continued bleeding. The patient did have one bowel movement during his hospitalization that had some dark black stools and some gross blood in it. The patient's hemoglobin slowly dropped throughout his hospitalization from 11 to 9.1; however , he remained hemodynamically stable. This will continue to be trended and he will continue to be monitored by GI. The patient was started on iron due to low levels of ferritin. The patient was evaluated by rehab and was deemed to be a good candidate for inpatient rehabilitation and the patient was set up to be transferred to inpatient rehabilitation. The patient was also set up for volume ventilation for nocturnal use due to the patient's obesity hypoventilation syndrome and this will continue on the patient especially until he is able to get an official sleep study done. DISPOSITION: Guarded. DISCHARGE INSTRUCTIONS: 1. Location: Inpatient rehabilitation. 2. Diet: Heart healthy and low fiber. 3. Activity: As tolerated. 4. Follow up with Dr. Sandoval within 2-[address] Cruz within 1- 2 weeks. LORA
--- NOTE | 2017-10-16 11:44 | EKG ---
Test Reason : Blood Pressure : / mmHG Vent. Rate : 093 BPM Atrial Rate : 075 BPM P-R Int : 000 ms QRS Dur : 152 ms QT Int : 380 ms P-R-T Axes : 000 -48 068 degrees QTc Int : 472 ms Atrial fibrillation Left axis deviation Right bundle branch block Abnormal ECG Confirmed by LEIDY NICOLE, ELÍAS Salinas ([id number]), online editor SHONNA BROUSSARD ([id number]) on 10/16/2017 11:44:13 AM Referred By: Confirmed By:ELÍAS FORBES MD
--- NOTE | 2017-10-17 21:20 | PQF ---
NIDHI IRIZARRY LAURA *r [id number] [facility]- B12 [id number] CLINICAL DOCUMENTATION CLARIFICATION FORM: POST DISCHARGE Addendum to original discharge summary date: ____ Late entry note date: __ DATE: 10/17/2017 ATTN: BENITA TENORIO MD Please exercise your independent, professional judgment in responding to the clarification form. Clinical indicators are provided on the bottom of this form for your review Please check appropriate box(s): [ ] Acute Renal Failure (ARF) / Acute Kidney Injury (KOREY) (Please specify associated condition, if applicable) [ ] Acute Tubular Necrosis (ATN) [ ] Acute Interstitial Nephritis (AIN) [ ] Acute Cortical Necrosis [ ] Acute Medullary Necrosis [ ] Other Etiology or underlying conditions related to the diagnosis of ARF/ KOREY: [ x] Acute on Chronic Renal Failure please specify Stage of CKD III (see below) [ ] CKD without ARF/KOREY please specify Stage of CKD [ ] ESRD [ ] Other diagnosis [ ] Unable to determine In addition, please specify: Present on Admission (POA): [ x] Yes [ ] No [ ] Unable to determine National Kidney Foundation Guidelines for CKD Staging Stage I Kidney damage with normal or increased GFRGFR > 90 Stage IIKidney damage with mildly decreased GFRGFR 60-89 Stage III Kidney damage with moderately decreased GFRGFR 30-59 Stage IVKidney damage with severely decreased GFRGFR 16-29 Stage VKidney failureGFR<15 ESRDEnd Stage Renal DiseaseOn dialysis Acute Renal Failure/Acute Kidney Failure defined as: Increases in SCr by (>) 0.3 mg/dl within 48 hours OR- Increases in SCr by (>) 1.5 times baseline, known or presumed to have occurred within the prior 7 days OR- Urine volume < 0.5 ml/kg/hour for 6 hours (KDIGO supplement 2012 for RIFLE/ANDREW criteria) For continuity of documentation, please document condition throughout progress notes and discharge summary. Thank You. CLINICAL INDICATORS - SIGNS / SYMPTOMS / LABS DISCHARGE SUMMARY Acute kidney injury on chronic kidney disease H&P "Chronic kidney disease. His creatinine is currently at near baseline. We will continue to monitor." BUN 52, Creatinine 1.42 PN 10/07 Acute on chronic kidney dysfunction with his bleeding, now with normal renal function. BUN 27, Creatinine 1.07 1L NS bolus and NS @ 150. Continue to monitor PN 10/05 Acute on chronic kidney disease BUN 48, Creatinine 1.27 1L NS bolus and NS @ 150. Will d/c fluids now as pt has normal UOP and has worsening edema in his BLE. PN 10/04 Acute renal insufficiency, avoid nephrotoxins, gentle hydration due to prerenal KOREY. BUN over 68; Creatinine 1.4, 1.3. Will monitor. Gave pt a bolus of fluids this am due to worsening KOREY and low UOP. Will watch closely for signs/symptoms of flash pulmonary edema. RISK FACTORS Dehydration Use of CHETAN inhibitors, NSAIDS, diuretics Nephrotoxins (drugs and contrast) TREATMENTS: CT abd 1L NS bolus and NS @ 150. Continue to monitor (This form is maintained as a part of the permanent medical record) 2014 [employer]. All Rights Reserved [email or web address] [phone] LORA
--- NOTE | 2017-10-17 21:34 | PQF ---
NIDHI IRIZARRY LAURA *r [id number] [facility]- B12 [id number] CLINICAL DOCUMENTATION CLARIFICATION FORM: POST DISCHARGE Addendum to original discharge summary date: ____ Late entry note date: __ DATE: 10/17/2017 ATTN: BENITA TENORIO MD Please exercise your independent, professional judgment in responding to the clarification form. Clinical indicators are provided on the bottom of this form for your review Please check appropriate box(s) to clarify if the following diagnosis has been ruled in or ruled out: COMMUNITY ACQUIRED PNEUMONIA [ ] Ruled in diagnosis [ ] Continue to treat [x] Resolved [ ] Ruled out diagnosis [ ] Cannot rule out diagnosis [ ] Other diagnosis [ ] Unable to determine In addition, please specify: Present on Admission (POA): [ x] Yes [ ] No [ ] Unable to determine For continuity of documentation, please document condition throughout progress notes and discharge summary. Thank You. CLINICAL INDICATORS - SIGNS / SYMPTOMS / LABS DISCHARGE SUMMARY Chest x-ray showed right basilar atelectasis versus infiltrate "The patient of note had an initial concern for possible community-acquired pneumonia, so he was treated with 5 days of Rocephin and azithromycin." H&P ABG- pH 1.17, pCO2 of 114, pO2 of 85. O2 saturation 91% base excess of 9. Chest x-ray showed right basilar atelectasis versus infiltrate Hypoxia PN 03 Community-acquired pneumonia, possible Sats 91% on 2L nasal cannula "We will continue antibiotics, though I am really not certain that there is a true pulmonary infectious process that is at play here." Pulmonary or Critical Care will continue to follow PN 03 Acute hypercapnic respiratory failure likely 2/2 CAP vs Obesity Hypoventilation Syndrome. Findings suspicious for PNA on CXR. His WBC was elevated to 13.3, but has since normalized. Extensive smoking history. Severe restrictive lung disease with superimposed mild obstructive lung disease. Cover for CAP with Azithromycin CONSULTATION- 10/02 Chest x-ray demonstrates right mid lung zone atelectasis vs infiltrate. Low lung volumes are present. Community-acquired pneumonia, possible 5 days of Rocephin and azithromycin, Nebulized medications RISK FACTORS Acute on chronic hypercapnic respiratory failure [id number] history of smoking Chronic lung disease TREATMENTS CXRs Pulmonary Consult 5 days of Rocephin and azithromycin, Nebulized medications O2 therapy IV Fluids (This form is maintained as a part of the permanent medical record) 2014 [employer]. All Rights Reserved Sunny [email or web address] [phone] MTDD
== END 2017-10-07 16:22 | DRG 189 ==
LOC: ERS 09:35 → IMCU/EMU 12:19 → T4-A 10-05 17:03
PROC: 0T9B80Z Drainage of Bladder with Drainage Device, Via Natural or Artificial Opening Endoscopic (ICD-10-PCS; principal; 2017-10-02)
DX: J96.22 Acute and chronic respiratory failure with hypercapnia (principal); N17.9 Acute kidney failure, unspecified; J18.9 Pneumonia, unspecified organism; E87.2 Acidosis; D69.6 Thrombocytopenia, unspecified; D68.32 Hemorrhagic disorder due to extrinsic circulating anticoagulants; E66.2 Morbid (severe) obesity with alveolar hypoventilation; E87.5 Hyperkalemia; J44.0 Chronic obstructive pulmonary disease with (acute) lower respiratory infection; K92.2 Gastrointestinal hemorrhage, unspecified; Z68.42 Body mass index [BMI] 45.0-49.9, adult; K92.1 Melena; I13.0 Hypertensive heart and chronic kidney disease with heart failure and stage 1 through stage 4 chronic kidney disease, or unspecified chronic kidney disease; J96.21 Acute and chronic respiratory failure with hypoxia; I48.91 Unspecified atrial fibrillation; D64.9 Anemia, unspecified; Z87.891 Personal history of nicotine dependence; K59.00 Constipation, unspecified; I95.9 Hypotension, unspecified; D50.0 Iron deficiency anemia secondary to blood loss (chronic); N40.1 Benign prostatic hyperplasia with lower urinary tract symptoms; R33.8 Other retention of urine; N35.9 Urethral stricture, unspecified; R31.0 Gross hematuria; T45.515A Adverse effect of anticoagulants, initial encounter; I50.9 Heart failure, unspecified; N18.3 Chronic kidney disease, stage 3 (moderate); D63.1 Anemia in chronic kidney disease
CPT/HCPCS: 36415; 71045; 74176; 80048; 80053; 81001; 82274; 82550; 82553; 82728; 82805; 83540; 83550; 83605; 83880; 84484; 85025; 85046; 85060; 85610; 85730; 86803; 86850; 86900; 86901; 87086; 87389; 87899; 93005; 93010; 94640; 94660; 94664; 94760; 96365; 96366; 96375; 96376; A4216; C1769; C9113; G8978-GP-CL; G8979-GP-CI; G8987-GO-CK; G8988-GO-CI; J0456; J0696; J2930; J7050; J7620

== ENCOUNTER 2017-10-17 09:43 | Inpatient (IN) | payer MEDICARE, OTHER ==
[2017-10-17 10:13] LABS: #Eosinphils 0.1 thou/uL (0.0-0.7); #Lymphocytes 0.8 thou/uL (1.20-3.40); #Monocytes 0.5 thou/uL (0.11-0.59); #Neutrophils 3.7 thou/uL (1.40-6.50); %Basophils 0.6 % (0.0-1.0); %Eosinophils 1.4 % (0.0-10.0); %Lymphocytes 15.6 % (21.0-51.0); %Neutrophils 72.5 % (42.0-75.0); Hemoglobin 9.3 g/dL (14.0-18.0); Mean Corpuscular HGB CONC 30.8 g/dL (32.0-36.0); Mean Corpuscular Hemoglobin 25.6 pg (27.0-31.0); Mean Corpuscular Volume 83.1 fl (80.0-94.0); Mean Platelet Volume 7.3 fL (7.4-10.4); Platelet Count 140 thou/uL (130-400); RBC Distribution Width 16.9 % (11.5-14.5); Red Blood Cell (RBC) Count 3.63 mill/uL (4.70-6.10); White Blood Cell (WBC) Count 5.1 thou/uL (4.8-10.8)
[2017-10-17 10:35] LABS: ALT (SGPT) 17 U/L (8-55); AST (SGOT) 15 U/L (5-34); Albumin 3.5 g/dL (3.4-4.8); Alkaline Phosphatase 72 U/L (40-150); Anion Gap 14 mmol/L (10-20); BUN (Urea Nitrogen) 27 mg/dL (8.4-25.7); Bilirubin, Total 0.8 mg/dL (0.2-1.2); Calc. Creatinine Clearance 0 mL/min (70-130); Calcium 9.2 mg/dL (7.8-10.44); Carbon Dioxide 30 mmol/L (23-31); Chloride 100 mmol/L (98-107); Estimated GFR-MDRD 59; Globulin 2.8 g/dL (2.4-3.5); Glucose 101 mg/dL (83-110); Potassium 4.7 mmol/L (3.5-5.1); Protein, Total 6.3 g/dL (5.8-8.1); Sodium 139 mmol/L (136-145)
[2017-10-17 10:37] LABS: Troponin I Less than 0.010 ng/mL (< 0.028)
--- NOTE | 2017-10-17 13:35 | RAD ---
UPRIGHT PORTABLE CHEST 1 VIEW: HISTORY: A 6-year-old male with a history of weakness and shortness of breath. COMPARISON: 10/02/17. FINDINGS: Less than optimal inspiratory effort with some pleural and parenchymal opacity changes in the right b ase which appear slightly more prominent than on the prior study. The left chest is stable. IMPRESSION: Slightly more prominent pleural and parenchymal opacity changes in the right base when compared to th e prior study. There is probably some component of right pleural effusion and right lower lobe atele ctasis. Some coexistent right lower lobe pneumonia is a consideration as well. POS: CLARIBEL
--- NOTE | 2017-10-17 14:08 | PDOC.FPRHP ---
- Allergies/Adverse Reactions Allergies Allergy/AdvReac Type Severity Reaction Status Date / Time No Known Drug Allergies Allergy Verified 10/02/17 15:23 - Home Medications Medication Instructions Recorded Confirmed Type Amlodipine Besylate [amLODIPine 5 mg PO BID 10/02/17 10/02/17 History Besylate] Budesonide-Formoterol [Symbicort 1 puff INH BID 10/02/17 10/02/17 History 160-4.5] Carvedilol [Coreg] 3.125 mg PO BID 10/02/17 10/02/17 History Furosemide [Lasix] 40 mg PO BID 10/02/17 10/02/17 History Lisinopril 10 mg PO BID 10/02/17 10/02/17 History Ferrous Sulfate [Feosol] 325 mg PO QAM-WM tab 10/07/17 Rx Ipratropium/Albuterol Sulfate 3 ml NEB [id number] neb 10/07/17 Rx [DuoNeb] Pantoprazole [Protonix] 40 mg PO BID tab 10/07/17 Rx Tamsulosin HCl [Flomax] 0.4 mg PO DAILY cap 10/07/17 Rx - History PMHx: PSHx: FHx: Social: - Vital signs BP: [] HR: [] RR: [] Tmax: [] Pox: []% on [] Wt: [] FMR H&P: Results - Labs Result Diagrams: 10/17/17 10:06 10/17/17 10:06 Lab results: WBC 5.1 thou/uL (4.8-10.8) 10/17/17 10:06 Hgb 9.3 g/dL (14.0-18.0) L 10/17/17 10:06 Hct 30.2 % (42.0-52.0) L 10/17/17 10:06 MCV 83.1 fl (80.0-94.0) 10/17/17 10:06 Plt Count 140 thou/uL (130-400) 10/17/17 10:06 Neutrophils % 72.5 % (42.0-75.0) 10/17/17 10:06 Sodium 139 mmol/L (136-145) 10/17/17 10:06 Potassium 4.7 mmol/L (3.5-5.1) 10/17/17 10:06 Chloride 100 mmol/L (98-107) 10/17/17 10:06 Carbon Dioxide 30 mmol/L (23-31) 10/17/17 10:06 BUN 27 mg/dL (8.4-25.7) H 10/17/17 10:06 Creatinine 1.20 mg/dL (0.6-1.3) 10/17/17 10:06 Glucose 101 mg/dL (83-110) 10/17/17 10:06 Calcium 9.2 mg/dL (7.8-10.44) 10/17/17 10:06 Total Bilirubin 0.8 mg/dL (0.2-1.2) 10/17/17 10:06 AST 15 U/L (5-34) 10/17/17 10:06 ALT 17 U/L (8-55) 10/17/17 10:06 Alkaline Phosphatase 72 U/L (40-150) 10/17/17 10:06 CK-MB (CK-2) 1.0 ng/mL (0-6.6) 10/17/17 10:06 B-Natriuretic Peptide 315.8 pg/mL (0-100) H 10/17/17 10:06 Serum Total Protein 6.3 g/dL (5.8-8.1) 10/17/17 10:06 Albumin 3.5 g/dL (3.4-4.8) 10/17/17 10:06 FMR H&P: Upper Level - Plan Date/Time: 10/17/17 1407 I, [], have evaluated this patient and agree with findings/plan as outlined by leadership program intern resident. Pertinent changes/additions are listed here.
[2017-10-17 14:48] LABS: Troponin I 0.013 ng/mL (< 0.028)
--- NOTE | 2017-10-17 15:58 | CT ---
CT ANGIOGRAM CHEST WITH 3D RENDERING: History: 76-year-old male with history of dyspnea and shortness of breath for several months, worse when layin g down. FINDINGS: There is noted to be bilateral pleural changes, larger on the right side, with bilateral lower lobe p arenchymal changes, again much larger on the right side, evidence for bilateral lower lobe atelectasi s and/or pneumonia. These pleural and parenchymal changes have progressed when compared to an 03-07-17 study bilaterally. There is some minimal pleural fluid in the fissures bilaterally. There is no signi ficant CT evidence for acute cardiopulmonary embolism. No evidence for aortic aneurysm or dissection. Visualized upper abdomen is unremarkable. Three vessel coronary artery calcific disease. IMPRESSION: Worsening bilateral lower lung zone pleural effusion and pleural based parenchymal changes, greater o n the right side, worsening from the prior study of 03-07-17, evidence for worsening bilateral atelecta sis and/or pneumonia. No significant CT evidence for acute pulmonary embolism. Three vessel coronary artery calcific disease. On the prior study a small nodule was noted in the left lower lobe. This was not definitely redemonstrated on this study although could be obscured by the patchy lower lobe pleu ral and parenchymal changes. POS: LENI
[2017-10-17] MEDS ORDERED: Acetaminophen 325 MG TAB PO PRN (16:00)
[2017-10-17] MEDS ORDERED: Enoxaparin Sodium 40 MG/0.4 ML SYRINGE SC SCH (16:00)
[2017-10-17] MEDS ORDERED: Ondansetron HCl/PF 4 MG/2 ML Vial IVP PRN (16:00)
[2017-10-17] MEDS ORDERED: Ondansetron ODT 4 MG TAB PO PRN (16:00)
[2017-10-17] MEDS ORDERED: Metolazone 5 MG TAB PO SCH (16:00)
[2017-10-17] MEDS ORDERED: Nitroglycerin 0.4 MG TAB (25 Tab Bottle) PO PRN (16:00)
[2017-10-17] MEDS ORDERED: Acetaminophen 650 MG Suppository PR PRN (16:00)
[2017-10-17] MEDS ORDERED: Furosemide 100 MG/10 ML VIAL SLOW IVP SCH (16:15)
--- NOTE | 2017-10-17 16:44 | PDOC.FPRHP ---
- History of Present Illness Chief Complaint: SOB, Increasing Leg swelling History of Present Illness: This is a 76 yo caucasion male w/ pmh PMHx of HTN and morbid obesity comes in w / increasing SOB and increasing Leg swelling. Pt was recently discharged from the hospital on 10/07/17 for GI bleed and SOB to rehab. He was just discharged from rehab on 10/16/17. He states he has since gotten more SOB and his legs have severely swollen up since discharge from rehab. Pt reports being seen back in march and getting a heart ECHO which showed an EF of 50-55%. There is suspected diastolic heart failure. He is currently being worked up for OHS by Dr. Sandoval. He is being seen by Dr. Harrison for Cardiology. He denies any fevers or chills. Reports having mild cough but states has had it since March. Pt reports being weak and having some pain and tingling in his feet but thinks it is due to how swollen his legs are. Denies any abdominal sx's, n/v/d/c. Also upon his last admission they were unable to pass a catheter and had to consult Dr. Valdivia for guadalupe placement. He has had guadalupe in place ever since. He is suppose to see her Wednesday to assess for removal. No other concerns at this time. ED Course: D-Dimer Elevated. Got CT of his chest. EKG shows A. fib. - Allergies/Adverse Reactions Allergies Allergy/AdvReac Type Severity Reaction Status Date / Time No Known Drug Allergies Allergy Verified 10/02/17 15:23 - Home Medications Medication Instructions Recorded Confirmed Type Carvedilol [Coreg] 3.125 mg PO BID 10/02/17 10/17/17 History Furosemide [Lasix] 40 mg PO BID 10/02/17 10/17/17 History Lisinopril 10 mg PO BID 10/02/17 10/17/17 History Ferrous Sulfate [Feosol] 325 mg PO QAM-WM tab 10/07/17 10/17/17 Rx Ipratropium/Albuterol Sulfate 3 ml NEB [id number] neb 10/07/17 Rx [DuoNeb] Tamsulosin HCl [Flomax] 0.4 mg PO DAILY cap 10/07/17 10/17/17 Rx Aspirin [Aspirin Chewable] 81 mg PO DAILY 10/17/17 10/17/17 History Fluticasone/Vilanterol [Breo 100 mcg INH DAILY 10/17/17 10/17/17 History Ellipta] Multivitamin/Iron/Folic Acid 1 tab PO DAILY 10/17/17 10/17/17 History [Centrum Adults Tablet] - History PMHx: 1. HTN 2. Morbid Obesity 3. Past h/o Tobacco Abuse PSHx: 1. R Knee replacement FHx: Denies any family history Social: Former 50 year tobacco use, but quit in 2007, Denies EtOH use or drug use Dr. Samson - PCP Dr. Harrison - Site Leader Dr. Sandoval - Garbage Pick Up Worker Dr. Valdivia- Urology - Review of Systems General: reports: weight/appetite/sleep changes (weight gain) Eyes: denies: eye pain, vision changes, other ENT: denies: nasal congestion, rhinorrhea, other Respiratory: reports: cough, shortness of breath. denies: congestion, exercise intolerance, other Cardiovascular: denies: chest pain, palpitation, edema, paroxysmal nocturnal dyspnea, orthopnea, other Gastrointestinal: denies: vomiting, diarrhea, constipation, abdominal pain, GI bleeding, other Genitourinary: denies: incontinence, dysuria, polyuria, discharge, other Skin: denies: rashes, lesions, jaundice, itching, other Musculoskeletal: reports: pain (in LE), swelling. denies: tenderness, stiffness , arthritis/arthralgias Neurological: denies: numbness, syncope, seizure, other Psychological: denies: anxiety, depression, other - Vital signs BP: [141/73] HR: [92] RR: [18] Tmax: [97.6] Pox: [92]% on [3L] Wt: [151 kg] - Physical Exam Constitutional: NAD, awake, alert and oriented, well developed HEENT: normocephalic and atraumatic, PERRLA, conjunctiva clear Neck: supple Chest: no-tender to palpation Heart: no murmurs/rubs/gallops, pulses present -Heart: Hard to auscultate heart sounds due to body habitus +3 pitting edema in LE bilaterally all the way up to his knees -Lungs: Decreased breath sounds. Rales noted. Crackles noted. Lung bases had prominent rales and crackles Abdomen: soft, non-tender, bowel sounds present -Abdomen: Belly moderately distended. seems to be fluid overloaded in abdomen as well. Musculoskeletal: normal structure, normal tone Neurological: no focal deficit, normal sensation Skin: no rash/lesions, capillary refill <2 seconds, no jaundice Heme/Lymphatic: no unusual bruising or bleeding Psychiatric: normal mood and affect, good judgment and insight, intact recent and remote memory FMR H&P: Results - Labs Result Diagrams: 10/17/17 10:06 10/17/17 10:06 Lab results: WBC 5.1 thou/uL (4.8-10.8) 10/17/17 10:06 Hgb 9.3 g/dL (14.0-18.0) L 10/17/17 10:06 Hct 30.2 % (42.0-52.0) L 10/17/17 10:06 MCV 83.1 fl (80.0-94.0) 10/17/17 10:06 Plt Count 140 thou/uL (130-400) 10/17/17 10:06 Neutrophils % 72.5 % (42.0-75.0) 10/17/17 10:06 Sodium 139 mmol/L (136-145) 10/17/17 10:06 Potassium 4.7 mmol/L (3.5-5.1) 10/17/17 10:06 Chloride 100 mmol/L (98-107) 10/17/17 10:06 Carbon Dioxide 30 mmol/L (23-31) 10/17/17 10:06 BUN 27 mg/dL (8.4-25.7) H 10/17/17 10:06 Creatinine 1.20 mg/dL (0.6-1.3) 10/17/17 10:06 Glucose 101 mg/dL (83-110) 10/17/17 10:06 Calcium 9.2 mg/dL (7.8-10.44) 10/17/17 10:06 Total Bilirubin 0.8 mg/dL (0.2-1.2) 10/17/17 10:06 AST 15 U/L (5-34) 10/17/17 10:06 ALT 17 U/L (8-55) 10/17/17 10:06 Alkaline Phosphatase 72 U/L (40-150) 10/17/17 10:06 CK-MB (CK-2) 1.0 ng/mL (0-6.6) 10/17/17 10:06 B-Natriuretic Peptide 315.8 pg/mL (0-100) H 10/17/17 10:06 Serum Total Protein 6.3 g/dL (5.8-8.1) 10/17/17 10:06 Albumin 3.5 g/dL (3.4-4.8) 10/17/17 10:06 Additional comment: CXR: Slightly more prominent pleural and parenchymal opacity changes in R. base when compared pprior study. There is probably some component of right pleural effusion and r lower lobe atelectasis. Some coexistent r. lower lobe pna. - EKG Interpretation EKG: A fib noted. No acute pathology noted - Radiology Interpretation CT scan - chest Status: image reviewed by me, report reviewed by me Additional comment: CTA chest: Worsening bilateral lower lung zone pleural effusion and pleural based parenchymal changes, greater on the right side, worsening frome the prior study 03-07-17, evidence for worsening bilateral atelectasis and/or pna. No significant CT evidence for acute PE. Three vessel coronary artery calcific dz. On prior study small nodule was noted in lower lobe. Not seen on this exam Chest x-ray Status: image reviewed by me, report reviewed by me Additional comment: CXR: Slightly more prominent pleural and parenchymal opacity changes in R. base when compared pprior study. There is probably some component of right pleural effusion and r lower lobe atelectasis. Some coexistent r. lower lobe pna. FMR H&P: A/P - Problem List (1) Acute and chronic respiratory failure with hypoxia Current Visit: Yes Status: Acute Code(s): J96.21 - ACUTE AND CHRONIC RESPIRATORY FAILURE WITH HYPOXIA (2) Obesity hypoventilation syndrome Current Visit: No Status: Acute Code(s): E66.2 - MORBID (SEVERE) OBESITY WITH ALVEOLAR HYPOVENTILATION (3) MAY (obstructive sleep apnea) Current Visit: No Status: Suspected Code(s): G47.33 - OBSTRUCTIVE SLEEP APNEA (ADULT) (PEDIATRIC) (4) Atrial fibrillation Current Visit: No Status: Acute Code(s): I48.91 - UNSPECIFIED ATRIAL FIBRILLATION Qualifiers: Atrial fibrillation type: unspecified Qualified Code(s): I48.91 - Unspecified atrial fibrillation (5) CKD (chronic kidney disease) Current Visit: No Status: Acute Code(s): N18.9 - CHRONIC KIDNEY DISEASE, UNSPECIFIED Qualifiers: Chronic kidney disease stage: unspecified stage Qualified Code(s): N18.9 - Chronic kidney disease, unspecified (6) Gastrointestinal bleed Current Visit: No Status: Acute Code(s): K92.2 - GASTROINTESTINAL HEMORRHAGE , UNSPECIFIED Qualifiers: GI bleed type/associated pathology: unspecified gastrointestinal hemorrhage type Qualified Code(s): K92.2 - Gastrointestinal hemorrhage, unspecified (7) Morbid obesity Current Visit: No Status: Acute Code(s): E66.01 - MORBID (SEVERE) OBESITY DUE TO EXCESS CALORIES (8) Hypertension Current Visit: No Status: Chronic Code(s): I10 - ESSENTIAL (PRIMARY) HYPERTENSION Qualifiers: Hypertension type: essential hypertension Qualified Code(s): I10 - Essential (primary) hypertension (9) Urinary retention due to benign prostatic hyperplasia Current Visit: Yes Status: Acute Code(s): N40.1 - BENIGN PROSTATIC HYPERPLASIA WITH LOWER URINARY TRACT SYMP; R33.8 - OTHER RETENTION OF URINE - Plan 1) Acute hypoxic respiratory failure due to suspected new onset CHF- increase in BNP from recent visit to 300, Has increasing swelliing in LE bilaterally, and new onset orthopnea/PND. Will order echo, previous echo in march showed EF of 50-55%, Will get stress test as 3v caclifications were noted on CT chest and to assess worsening congestion and swelling. continue supplemental O2 been using 3 L at home. , give single dose metolazone followed by IV 80mg lasix once. IV 40 mg Lasix BID.. strict I&Os, daily weights, fluid restrict and consult HF clinic. -LE Doppler pending to rule out DVT due to swelling. -Not concerned for PNA at this time as CT shows more atelectasis picture. Pt states has had cough chronically. denied fever chills and no elevation in WBC. -Sees Dr. Harrison outpatient. May consider consulting due to possible CHF and swelling. -Also sees Dr. Sandoval outpatient. May consider consulting due to SOB 2) Deconditioning- -PT/OT. Recently discharged from Rehab on Wednesday. 3) Subacute urinary retention- -continue indwelling guadalupe, Was suppose to see Dr. Cruz on Wednesday. Will want to consult Dr. Cruz in am so she can assess. 4) Chronic Afib, rate controlled- -HR stable. continue rate control meds and discuss restarting NOAC pending resolution/ tx of LGIB. 5) recent LGIB- -hgb stable at 9.3 (improved from prior hospitalization). -continue iron po and plan for outpt cscope. No concern for GI bleed at this time 6) CKD3- -avoid nephrotoxins. monitor renal fxn with increased diuresis. Stable at this time 7) HTN- cont home meds. hold BB tonight in preparation for nuc med stress in am. 8) OHS/MAY- cont bipap/ pos pressure vent qhs. 9) morbid obesity- marriage counselor minister re: healthy lifestyle changes. FMR H&P: Upper Level - Pertinent history 76yo CM with pmhx obesity hypoventilation/MAY, HTN, chronic Afib (rate controlled), normocytic anemia (stable after a recent LGIB), and urinary retention (indwelling guadalupe present) who presents with increasing SOB. Significantly pt was recently admitted at [facility] (10/02-10/07) for acute on chronic hypercapnic respiratory failure and after treatment inpatient was transferred to inpatient rehab for further care and was discharged yesterday. Pt reports increased SOB worse than baseline and increase in LE edema bilaterally, as well as weight gain and fluid retention. Also endorses orthopnea and PND which have been new for pt. Pt was noted to be hypoxic to 88% on arrival to ED today and had a new O2 requirement. Has been compliant with qhs bipap, and all meds as prescribed. - Pertinent findings PE remarkable for diffuse bilateral crackles with decreased breath sounds in right lung base. LE have bilateral 2+ pitting edema with mild bilateral edema and ttp in bilateral calves. pt satting well on 3L O2 by NC without acute respiratory distress. D-dimer 1.62 BNP 315 Hgb 9.3 (improved from prior hospital stay) stable CKD3 CXR- bilateral pulm vascular congestion with elevated rt hemidiaphragm. - Plan Date/Time: 10/17/17 1544 76yo CM with pmhx chronic hypercapneic resp failure due to MAY/OHS, HTN, chronic Afib-- 1) Acute hypoxic respiratory failure due to suspected new onset CHF- increase in BNP, worsened baseline SOB & LE edema, and new onset orthopnea/PND. Will order echo, and lexiscan stress given multiple risk factors and nonspecific ST changes. continue supplemental O2, give single dose metolazone followed by IV lasix. strict I&Os, daily weights, fluid restrict and consult HF clinic. Pending CT chest to r/o PE and b/l LE dopplers to r/o DVT given elevated D- dimer and elevated rt hemidiaphragm. 2) Deconditioning- PT/OT 3) Subacute urinary retention- continue indwelling guadalupe, consult Dr. Cruz in am. 4) Chronic Afib, rate controlled- continue rate control meds and discuss restarting NOAC pending resolution/ tx of LGIB. 5) recent LGIB- hgb stable at 9.3 (improved from prior hospitalization). continue iron po and plan for outpt cscope. 6) CKD3- avoid nephrotoxins. monitor renal fxn with increased diuresis. 7) HTN- cont home meds. hold BB tonight in preparation for nuc med stress in am. 8) OHS/MAY- cont bipap/ pos pressure vent qhs. 9) morbid obesity- marriage counselor minister re: healthy lifestyle changes. I, [Nikkie Cortez DO], have evaluated this patient and agree with findings/plan as outlined by record label intern resident. Pertinent changes/additions are listed here. Attending Addendum - Attending Addendum Date/Time: 10/17/171943 I personally evaluated the patient and discussed the management with Dr. Berry I agree with the History, Examination, Assessment and Plan documented above with any addition or exceptions noted below.Morbidly obese male presents with dyspnea markedly fluid overloaded with hypoventilation syndrome and respiratory failure,atrial fibrillation as noted previously elevated BNP from prior visit and prior EF 50 HFp. Patient under care/ongoing evaluation of Pulmonary and Cardiology. Consider Hgba1c, TFT and should benefit from BiPAP. Diuresis with metalazone/lasix administartion. PE ruled out with CTA. Patient needs to lose weight for any significant bed bug exterminator benefit.
--- NOTE | 2017-10-17 17:50 | ULT ---
BILATERAL LOWER EXTREMITY VENOUS DUPLEX ULTRASOUND INCLUDING COLOR AND SPECTRAL DOPPLER IMAGING: History: 76-year-old male with history of edema and calf pain. FINDINGS: Exam performed from groin to ankle bilaterally including greater saphenous, common femoral, superfici al femoral, profunda femoral, popliteal, trifurcation and posterior tibial vein regions. There is pha sic flow at all levels. There is normal compressibility and normal augmentation. There is some superf icial subcutaneous edema noted in both lower extremities. IMPRESSION: No evidence for deep venous thrombosis. POS: CLARIBEL
[2017-10-17] MEDS: Mometasone/Formoterol 120 PUFF INHALER INH SCH (19:26)
[2017-10-17] MEDS: Atorvastatin Calcium 40 MG TAB PO SCH (20:55)
[2017-10-17] MEDS: Amlodipine 5 MG TAB PO SCH (20:56)
[2017-10-17] MEDS: Lisinopril 10 MG TAB PO SCH (20:57)
[2017-10-18] MEDS: Furosemide 40 MG/4 ML VIAL SLOW IVP SCH ×2 (05:27→14:32)
[2017-10-18 05:35] LABS: #Eosinphils 0.1 thou/uL (0.0-0.7); #Lymphocytes 0.6 thou/uL (1.20-3.40); #Monocytes 0.6 thou/uL (0.11-0.59); #Neutrophils 4.5 thou/uL (1.40-6.50); %Basophils 0.5 % (0.0-1.0); %Eosinophils 1.6 % (0.0-10.0); %Lymphocytes 10.6 % (21.0-51.0); %Monocytes 9.7 % (0.0-10.0); %Neutrophils 77.5 % (42.0-75.0); Hemoglobin 9.1 g/dL (14.0-18.0); Mean Corpuscular HGB CONC 30.4 g/dL (32.0-36.0); Mean Corpuscular Hemoglobin 25.1 pg (27.0-31.0); Mean Corpuscular Volume 82.6 fl (80.0-94.0); Mean Platelet Volume 7.9 fL (7.4-10.4); Platelet Count 166 thou/uL (130-400); RBC Distribution Width 16.8 % (11.5-14.5); Red Blood Cell (RBC) Count 3.64 mill/uL (4.70-6.10); White Blood Cell (WBC) Count 5.8 thou/uL (4.8-10.8)
[2017-10-18 06:03] LABS: Anion Gap 13 mmol/L (10-20); BUN (Urea Nitrogen) 24 mg/dL (8.4-25.7); Calc. Creatinine Clearance 118 mL/min (70-130); Carbon Dioxide 30 mmol/L (23-31); Chloride 97 mmol/L (98-107); Estimated GFR-MDRD 64; Glucose 99 mg/dL (83-110); Potassium 4.3 mmol/L (3.5-5.1); Sodium 136 mmol/L (136-145)
[2017-10-18] MEDS: Mometasone/Formoterol 120 PUFF INHALER INH SCH ×2 (06:45→18:36)
--- NOTE | 2017-10-18 06:59 | PDOC.FM ---
- Subjective Subjective: Patient is doing well this morning stating he feels 100% better. Patient diuresed over 3L overnight. Patient denies fever, cough, chest pain at this time. Reports SOB greatly improved. Still requiring 5L O2 from home baseline of 3L. - Objective MAR Reviewed: Yes Vital Signs & Weight: Vital Signs (12 hours) Temp Pulse Resp BP BP Pulse Ox 10/18/17 06:45 97 16 10/18/17 06:36 97 10/18/17 06:34 97 16 10/18/17 04:00 92 L 10/18/17 01:11 96 18 93 L 10/18/17 01:00 94 L 10/18/17 00:40 97.5 F L 96 20 99/56 L 86 L 10/18/17 00:00 86 L 10/17/17 20:57 118/59 L 10/17/17 20:56 93 119/59 L 10/17/17 20:00 97.5 F L 93 20 118/59 L 93 L 10/17/17 19:21 93 16 96 Weight Weight 146.737 kg I&O: 10/16/17 10/17/17 10/18/17 06:59 06:59 06:59 Intake Total 240 Output Total 3825 Balance -3585 Result Diagrams: 10/18/17 04:45 10/18/17 04:45 Phys Exam - Physical Examination Constitutional: NAD HEENT: PERRLA, moist MMs large neck girth rhonchi at lung bases L>R, scattered wheezing Cardiovascular: RRR, no significant murmur Gastrointestinal: soft, non-tender Musculoskeletal: pulses present 1+ pitting edema bilaterally Neurological: moves all 4 limbs Psychiatric: normal affect, A&O x 3 Dx/Plan (1) Acute and chronic respiratory failure with hypoxia Code(s): J96.21 - ACUTE AND CHRONIC RESPIRATORY FAILURE WITH HYPOXIA Status: Acute (2) Urinary retention due to benign prostatic hyperplasia Code(s): N40.1 - BENIGN PROSTATIC HYPERPLASIA WITH LOWER URINARY TRACT SYMP; R33.8 - OTHER RETENTION OF URINE Status: Acute (3) Atrial fibrillation Code(s): I48.91 - UNSPECIFIED ATRIAL FIBRILLATION Status: Acute Qualifiers: Atrial fibrillation type: unspecified Qualified Code(s): I48.91 - Unspecified atrial fibrillation (4) KOREY (acute kidney injury) Code(s): N17.9 - ACUTE KIDNEY FAILURE, UNSPECIFIED Status: Acute (5) CKD (chronic kidney disease) Code(s): N18.9 - CHRONIC KIDNEY DISEASE, UNSPECIFIED Status: Acute Qualifiers: Chronic kidney disease stage: unspecified stage Qualified Code(s): N18.9 - Chronic kidney disease, unspecified (6) Normocytic anemia Code(s): D64.9 - ANEMIA, UNSPECIFIED Status: Acute (7) Obesity hypoventilation syndrome Code(s): E66.2 - MORBID (SEVERE) OBESITY WITH ALVEOLAR HYPOVENTILATION Status : Acute (8) MAY (obstructive sleep apnea) Code(s): G47.33 - OBSTRUCTIVE SLEEP APNEA (ADULT) (PEDIATRIC) Status: Suspected (9) Hypertension Code(s): I10 - ESSENTIAL (PRIMARY) HYPERTENSION Status: Chronic Qualifiers: Hypertension type: essential hypertension Qualified Code(s): I10 - Essential (primary) hypertension (10) CAD (coronary artery disease) Code(s): I25.10 - ATHSCL HEART DISEASE OF [place] CORONARY ARTERY W/O ANG PCTRS Status: Acute (11) Morbid obesity Code(s): E66.01 - MORBID (SEVERE) OBESITY DUE TO EXCESS CALORIES Status: Acute - Plan Plan: Acute hypoxic respiratory failure due to suspected new onset CHF- - new HFpEF vs long standing pulmonary HTN 2/2 OHS/MAY - Echo pending. Last echo in march showed EF of 50-55%, Will get stress test as 3v caclifications were noted on CT chest and to assess worsening congestion and swelling. continue supplemental O2 been using 3 L at home. - s/p Metolazonex1, Output of over 3L - Continue IV 40 mg Lasix BID, Likely transition to PO tomorrow. - LE dopplers negative - Not concerned for PNA at this time as CT shows more atelectasis picture. Repeat CXR tomorrow and continue to monitor VS. - strict I&Os, daily weights, fluid restrict Deconditioning- - PT/OT. Recently discharged from Rehab on Wednesday. Subacute urinary retention- - continue indwelling guadalupe - consult Anthony Chronic Afib, rate controlled- - HR stable. continue rate control meds and discuss restarting NOAC pending resolution/tx of LGIB. Recent LGIB- - hgb stable at 9.3 (improved from prior hospitalization). - continue iron po and plan for outpt cscope. No concern for GI bleed at this time CKD3- - avoid nephrotoxins. monitor renal fxn with increased diuresis. Stable at this time. - Cr 1.1 today HTN- - cont home meds. hold BB tonight in preparation for nuc med stress in am. OHS/MAY- - cont bipap/ pos pressure vent qhs. - continue O2 during the day. morbid obesity- - job placement counselor re: healthy lifestyle changes.
[2017-10-18] MEDS: Amlodipine 5 MG TAB PO SCH ×2 (10:03→21:43)
[2017-10-18] MEDS: Enoxaparin Sodium 40 MG/0.4 ML SYRINGE SC SCH (10:03)
[2017-10-18] MEDS: Ferrous Sulfate 325 MG TAB PO SCH (10:04)
[2017-10-18] MEDS: Lisinopril 10 MG TAB PO SCH ×2 (10:04→21:42)
--- NOTE | 2017-10-18 13:39 | ADD-PRG ---
DATE OF SERVICE: 10/18/2017 This is an addendum to the note of Dr. Fracnoise Daniel. Mr. Rodgers was admitted with several problems including acute and chronic respiratory failure with hy poxia and obesity hypoventilation syndrome with obstructive sleep apnea. He also has atrial fibrilla tion and a significant amount of peripheral edema. We are treating him with IV Lasix. He has a hist ory of diastolic heart failure. I suspect there is also an element of pulmonary hypertension and cor pulmonale secondary to his hypoventilation syndrome and obstructive sleep apnea. In any event, he i s on oxygen and BiPAP and clinically improving.
[2017-10-18] MEDS ORDERED: Sodium Chloride 0.9% 10 ML ONE (14:26)
[2017-10-18] MEDS ORDERED: Regadenoson 0.4 MG/5 ML SYRINGE ONE (15:13)
--- NOTE | 2017-10-18 15:13 | NM ---
STRESS ONLY NUCLEAR MEDICINE MYOCARDIAL PERFUSION SCAN: Date: 10/18/17 COMPARISON: None. HISTORY: Shortness of breath, atrial fibrillation, hypertension, and COPD. TECHNIQUE: Following the intravenous administration of 30.8 mCi of technetium-99m labeled sestamibi, short axis, vertical long axis, and horizontal long axis SPECT imaging of the left ventricular myocardium is obt ained. FINDINGS: No focal perfusion defect is identified on this examination. Left ventricular wall motion appears wit hin normal limits. EDV is 88 mL. ESV is 41 mL. Left ventricular ejection fraction of 53%. IMPRESSION: No significant perfusion defect noted on stress only imaging. Left ventricular ejection fraction is 5 3% with normal left ventricular wall motion noted. POS: [facility]
--- NOTE | 2017-10-18 15:50 | CON ---
DATE OF CONSULTATION: 10/18/2017 PRIMARY CARE PHYSICIAN: Jaun Samson M.D. REASON FOR CONSULT: History of Noel catheter, retention. HISTORY OF PRESENT ILLNESS: Mr. Rodgers is a pleasant 77-year-old male whom I seen as an inpatient consultation back on 10/02/2017 due to acute urinary retention, post-void residual of 700-800 mL. At that time, nursing staff attempted to place a catheter x2 with no vial. Subsequently, blood at the meatus was noted. Subsequently, patient required a cystoscopic guidance to pass a Noel catheter due to false passage in the bulbar urethra. A 700-800 mL of clear yellow urine was obtained. He tolerated that uneventfully. He was initially admitted early September due to history of gastrointestinal bleed. Due to significant COPD, increased risk of anesthesia events, conservative observation regarding GI bleed per Dr. Arce and Dr. Sandoval. He was subsequently transitioned to rehabilitation due to severe COPD on BiPAP. He is readmitted due to recurrence of shortness of breath. On this admission, the patient is on Lasix 40 mg IV push b.i.d. and has diuresed almost 4 liters in the last 24 hours. He states that he is breathing better and has been tolerating his catheter without significant issues. Catheter draining clear yellow urine. Prior workup with CT demonstrated no evidence of hydronephrosis. I did inform patient regarding elective cystoscopy and a voiding trial in my office. He has an appointment with me tomorrow, I am reconsulted as he is being admitted for repeat voiding trial. He subsequently has undergone a stress test demonstrating normal ejection fraction of 53% with no significant perfusion defect. PAST MEDICAL HISTORY: History of respiratory failure, severe COPD followed by Dr. Sandoval, morbid obesity, hypertension, history of GI bleed, followed by Dr. Arce on clinical observation due to high risk of anesthesia event. ALLERGIES: No known drug allergies. PAST SURGICAL HISTORY: Right total knee replacement. FAMILY HISTORY: Noncontributory. SOCIAL HISTORY: A 40-[id number]-[id number] smoking history, quit 10 years ago. Occasional alcohol. 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 REVIEW OF SYSTEMS: Ten point review of systems as above, otherwise noncontributory. PHYSICAL EXAMINATION: VITAL SIGNS: Stable 98, 107, 113/58, 97% on 3 liters, 240 in and 3825 over the last 24 hours. HEENT: Grossly unremarkable. HEART: Regular rate. LUNGS: Distant. ABDOMEN: Morbidly obese and protuberant. GENITOURINARY: Demonstrates Noel catheter adequately secured and demonstrating clear yellow urine. There is gross pitting edema. EXTREMITIES: Consistent with anasarca. GENITOURINARY: As patient currently is having a bowel movement, sitting in a commode. I did not do digital rectal exam on today's visit. His previous GORGE recently performed demonstrated 30 gram prostate with no significant nodularity. PERTINENT IMAGING DATA AND LABORATORY DATA: 1. Stress test obtained on 10/18/2017 EF 53% and no perfusion defect. 2. Lower extremity Doppler on 10/17/2017, no evidence of DVT. 3. On 10/17/2017, CT angiogram, worsening pleural effusion, no evidence of pulmonary embolus. 4. CT of the abdomen and pelvis noncontrast 10/04/2017 demonstrating no evidence of hydronephrosis, kidney is grossly unremarkable. 5. White count 5, hemoglobin is 9.1. No significant change in his hemoglobin since his admission from for GI bleed. 6. Renal function. Creatinine is 1.1 on 10/18/2017. IMPRESSION AND PLAN: Mr. Rodgers is a 77-year-old male with history of: 1. Severe chronic obstructive pulmonary disease. 2. History of respiratory failure. 3. History of gastrointestinal bleed, recently admitted on 10/02/2017 on observation. 4. History of atrial fibrillation. Antiplatelets on hold due to history of gastrointestinal bleed. 5. Urologic issues of urinary retention 700-800 mL of post-void residual, with traumatic Noel catheter placement/false passage requiring cystoscopic guidance for Noel catheter. 6. The patient empirically treated for benign prostatic hyperplasia on Flomax. RECOMMENDATIONS: As the patient is currently being aggressively diuresed with Lasix 40 mg IV b.i.d., it would be prudent to leave his indwelling Noel catheter while he is undergoing aggressive diuresis. I informed the patient when he is in better state of condition from his fluid overload, we will initiate voiding trial electively. Do not remove Noel catheter unless it is ordered by . Continue Flomax. The patient and informed. [facility]IATRIC CENTERHermilo
[2017-10-18] MEDS: Atorvastatin Calcium 40 MG TAB PO SCH (21:43)
[2017-10-19] MEDS: Carvedilol 3.125 MG TAB PO SCH ×3 (02:15→21:30)
[2017-10-19] MEDS: Furosemide 40 MG/4 ML VIAL SLOW IVP SCH (05:19)
[2017-10-19] MEDS: Mometasone/Formoterol 120 PUFF INHALER INH SCH ×2 (06:02→18:24)
--- NOTE | 2017-10-19 07:51 | PDOC.FM ---
- Subjective Subjective: Patient and report much improvement of sx. Patient slept well and tolerated CPAP better overnight. Last night had an episode of hypotension and BP meds were held. Patient asymptomatic from BP. Reports improved orthopnea and no SOB at this time. Denies fever, chills, and cough. Reports some post nasal drip. - Objective MAR Reviewed: Yes Vital Signs & Weight: Vital Signs (12 hours) Temp Pulse Resp BP BP Pulse Ox 10/19/17 06:04 82 L 10/19/17 06:02 98 20 82 L 10/19/17 05:57 98 20 82 L 10/19/17 02:30 96 16 94 L 10/19/17 00:39 95 16 95 10/19/17 00:37 97 16 95 10/19/17 00:10 97.6 F 116 H 18 94/62 94 L 10/18/17 22:20 95 16 94 L 10/18/17 21:43 96 10/18/17 21:42 80/50 L 10/18/17 20:19 97.8 F 111 H 18 85/50 L 96 Weight Weight 146.737 kg I&O: 10/18/17 10/19/17 10/20/17 06:59 06:59 06:59 Intake Total 240 730 Output Total 3825 3300 Balance -0594 -8710 Result Diagrams: 10/18/17 04:45 10/18/17 04:45 Phys Exam - Physical Examination Constitutional: NAD HEENT: moist MMs Respiratory: no wheezing, no rales decreased breath sounds over the bases Cardiovascular: RRR, no significant murmur Gastrointestinal: soft, non-tender, no distention 1+ edema bilaterally Neurological: moves all 4 limbs Psychiatric: normal affect, A&O x 3 Dx/Plan (1) Acute and chronic respiratory failure with hypoxia Code(s): J96.21 - ACUTE AND CHRONIC RESPIRATORY FAILURE WITH HYPOXIA Status: Acute (2) Urinary retention due to benign prostatic hyperplasia Code(s): N40.1 - BENIGN PROSTATIC HYPERPLASIA WITH LOWER URINARY TRACT SYMP; R33.8 - OTHER RETENTION OF URINE Status: Acute (3) Atrial fibrillation Code(s): I48.91 - UNSPECIFIED ATRIAL FIBRILLATION Status: Acute Qualifiers: Atrial fibrillation type: unspecified Qualified Code(s): I48.91 - Unspecified atrial fibrillation (4) KOREY (acute kidney injury) Code(s): N17.9 - ACUTE KIDNEY FAILURE, UNSPECIFIED Status: Acute (5) CKD (chronic kidney disease) Code(s): N18.9 - CHRONIC KIDNEY DISEASE, UNSPECIFIED Status: Acute Qualifiers: Chronic kidney disease stage: unspecified stage Qualified Code(s): N18.9 - Chronic kidney disease, unspecified (6) Normocytic anemia Code(s): D64.9 - ANEMIA, UNSPECIFIED Status: Acute (7) Obesity hypoventilation syndrome Code(s): E66.2 - MORBID (SEVERE) OBESITY WITH ALVEOLAR HYPOVENTILATION Status : Acute (8) MAY (obstructive sleep apnea) Code(s): G47.33 - OBSTRUCTIVE SLEEP APNEA (ADULT) (PEDIATRIC) Status: Suspected (9) Hypertension Code(s): I10 - ESSENTIAL (PRIMARY) HYPERTENSION Status: Chronic Qualifiers: Hypertension type: essential hypertension Qualified Code(s): I10 - Essential (primary) hypertension (10) CAD (coronary artery disease) Code(s): I25.10 - ATHSCL HEART DISEASE OF [place] CORONARY ARTERY W/O ANG PCTRS Status: Acute (11) Morbid obesity Code(s): E66.01 - MORBID (SEVERE) OBESITY DUE TO EXCESS CALORIES Status: Acute - Plan Plan: Acute hypoxic respiratory failure due to suspected new onset CHF- - new HFpEF vs long standing pulmonary HTN 2/2 OHS/MAY - Echo pending. Last echo in march showed EF of 50-55%, - stress test negative - s/p Metolazonex1, Output of over 3L on day one and 3L on day 2 - Transition to PO Lasix today. - LE dopplers negative - Not concerned for PNA at this time as CT shows more atelectasis picture. Repeat CXR this morning and continue to monitor VS. - strict I&Os, daily weights, fluid restrict Deconditioning- - PT/OT. Recently discharged from Rehab on Wednesday. Subacute urinary retention- - continue indwelling guadalupe at this time per urology - Dr. Cruz following, appreciate recs Chronic Afib, rate controlled- - HR stable. continue rate control meds and discuss restarting NOAC pending resolution/tx of LGIB. Recent LGIB- - hgb stable at 9.3 (improved from prior hospitalization). - continue iron po and plan for outpt cscope. No concern for GI bleed at this time CKD3- - avoid nephrotoxins. monitor renal fxn with increased diuresis. Stable at this time. - Cr 1.1 today - repeat BMP pending. HTN- - cont home meds. - patient with episode of hypotension last night, likely due to intravascular volume decrease, PM meds were held - transition to PO lasix but hold tonights dose because patient continues to be mildly hypotensive. OHS/MAY- - cont bipap/ pos pressure vent qhs. - continue O2 during the day. - patient with room air trial with saturation of 82%. It is imperative to have continuous o2 morbid obesity- - activities counselor re: healthy lifestyle changes. Post nasal Drip - Flonase daily
--- NOTE | 2017-10-19 08:51 | PRG ---
DATE OF SERVICE: 10/19/2017 SUBJECTIVE: The patient without complaints, breathing better, decreased lower extremity edema. PHYSICAL EXAMINATION: VITAL SIGNS: Afebrile, 82% on 3 liters. I's and O's 730 in, 3300 out. He is negative 2.5 liters. ABDOMEN: Soft, obese, protuberant, nontender, nondistended. GENITOURINARY: Noel catheter adequately secured, there is some discharge at the catheter meatus junction site, this was cleaned and resecured. LABORATORY DATA: No new labs. White count, hemoglobin stable yesterday. Renal function stable at 1.1. IMPRESSION AND PLAN: Mr. Rodgers is a 77-year-old male whom I seen as an inpatient consultation beginning of the month due to traumatic Noel catheter placement with false passage at the bulbar urethra with urinary retention 700- 800 mL. Continue Flomax. The patient in aggressive diuresis with IV push Lasix b.i.d. continues to have high output urine. We will continue indwelling Noel catheter for strict I's and O's. When edema, urine output has decreased, I will initiate voiding trial. Do not remove Noel catheter unless initiated by . [facility]
[2017-10-19] MEDS ORDERED: Furosemide 20 MG TAB PO SCH (09:00)
[2017-10-19] MEDS ORDERED: Furosemide 40 MG TAB PO SCH (09:00)
--- NOTE | 2017-10-19 09:08 | RAD ---
CHEST TWO VIEWS: History: Rule out pleural effusion. Comparison: 10-17-17 FINDINGS: Slightly worsening pleural and parenchymal changes of the right lung base. Interval development of pa renchymal change of the left lung base. Lung volumes are diminished. There is no pneumothorax. Athero sclerosis of the aorta is again identified. IMPRESSION: Worsening bibasilar opacities suggesting parenchymal change due to pneumonia or atelectasis. Small ri ght sided pleural effusion also present. POS: [facility]
[2017-10-19] MEDS: Lisinopril 10 MG TAB PO SCH ×3 (09:50→21:30)
[2017-10-19] MEDS: Amlodipine 5 MG TAB PO SCH ×2 (09:50→09:54)
[2017-10-19] MEDS: Enoxaparin Sodium 40 MG/0.4 ML SYRINGE SC SCH (09:52)
[2017-10-19] MEDS: Tamsulosin HCl 0.4 MG CAP PO SCH (09:53)
[2017-10-19] MEDS: Ferrous Sulfate 325 MG TAB PO SCH (09:53)
[2017-10-19 12:21] LABS: Anion Gap 18 mmol/L (10-20); Carbon Dioxide 33 mmol/L (23-31); Chloride 92 mmol/L (98-107); Sodium 139 mmol/L (136-145)
[2017-10-19 12:23] LABS: BUN (Urea Nitrogen) 30 mg/dL (8.4-25.7); Calc. Creatinine Clearance 74 mL/min (70-130); Calcium 9.2 mg/dL (7.8-10.44); Estimated GFR-MDRD 40; Glucose 103 mg/dL (83-110)
--- NOTE | 2017-10-19 12:47 | ADD-PRG ---
DATE OF SERVICE: 10/19/2017 This is an addendum to the note of Dr. Francoise Daniel. This morning, Mr. Rodgers is completely awake, alert, even cheerful. He is in no distress. Currently his blood pressure is 108/60, his temperature is 97.9, his pulse rate is 90 and regular, respiration s are 18 and regular, in no distress. LABORATORY DATA: Hemoglobin is 9.1, hematocrit 30.1. He having suffered a GI bleed approximately 3 weeks ago and currently on iron therapy. We discussed at length his diagnosis of obstructive sleep a pnea and its likely relation to his current respiratory difficulties which have improved. He has bee n vigorously diuresed given a significant amount of "fluid retention" and peripheral edema. His ches t x-ray has improved. I believe his underlying issues are chronic lung disease related to obstructiv e sleep apnea and possibly an element of chronic obstructive pulmonary disease as he used to be a hea vy smoker. In any event, clinically today he is much improved and will likely be able to be discharg ed within 1-2 more days.
[2017-10-19] MEDS: Atorvastatin Calcium 40 MG TAB PO SCH (21:30)
[2017-10-19] MEDS: hydrOXYzine 25 MG TAB PO PRN (23:33)
[2017-10-20] MEDS: Mometasone/Formoterol 120 PUFF INHALER INH SCH ×2 (07:25→19:07)
--- NOTE | 2017-10-20 08:03 | PDOC.FM ---
- Subjective Subjective: Patient is doing well today. He is reporting no difficulty with breathing. No acute events overnight. Discussed with family in depth about the plan of care and possibility of discharge to home instead of rehab facility as they had wanted. After lengthy discussion, patient and are agreeable to go home with outpatient cardiac rehab and HH with PT which has all been set up. Patient had no other concerns. - Objective MAR Reviewed: Yes Vital Signs & Weight: Vital Signs (12 hours) Temp Pulse Resp BP BP Pulse Ox 10/20/17 07:26 95 10/20/17 07:24 98 16 95 10/20/17 04:00 98.1 F 99 18 120/75 91 L 10/20/17 01:00 95 16 96 10/20/17 00:59 97 16 96 10/20/17 00:10 97.6 F 103 H 18 128/69 92 L 10/19/17 21:30 113/63 10/19/17 20:36 97.8 F 97 18 113/66 91 L Weight Weight 142.791 kg I&O: 10/19/17 10/20/17 10/21/17 06:59 06:59 06:59 Intake Total 930 1030 Output Total 3550 4100 Balance -2620 -3070 Result Diagrams: 10/18/17 04:45 10/19/17 11:24 Phys Exam - Physical Examination Constitutional: NAD HEENT: moist MMs Respiratory: no wheezing, no rales decreased breath sounds at the bases of lungs. Cardiovascular: RRR, no significant murmur Gastrointestinal: soft, non-tender 1+ pitting edema of bilateral extremities. Neurological: moves all 4 limbs Psychiatric: normal affect, A&O x 3 Dx/Plan (1) Acute and chronic respiratory failure with hypoxia Code(s): J96.21 - ACUTE AND CHRONIC RESPIRATORY FAILURE WITH HYPOXIA Status: Acute (2) Urinary retention due to benign prostatic hyperplasia Code(s): N40.1 - BENIGN PROSTATIC HYPERPLASIA WITH LOWER URINARY TRACT SYMP; R33.8 - OTHER RETENTION OF URINE Status: Acute (3) Atrial fibrillation Code(s): I48.91 - UNSPECIFIED ATRIAL FIBRILLATION Status: Acute Qualifiers: Atrial fibrillation type: unspecified Qualified Code(s): I48.91 - Unspecified atrial fibrillation (4) KOREY (acute kidney injury) Code(s): N17.9 - ACUTE KIDNEY FAILURE, UNSPECIFIED Status: Acute (5) CKD (chronic kidney disease) Code(s): N18.9 - CHRONIC KIDNEY DISEASE, UNSPECIFIED Status: Acute Qualifiers: Chronic kidney disease stage: unspecified stage Qualified Code(s): N18.9 - Chronic kidney disease, unspecified (6) Normocytic anemia Code(s): D64.9 - ANEMIA, UNSPECIFIED Status: Acute (7) Obesity hypoventilation syndrome Code(s): E66.2 - MORBID (SEVERE) OBESITY WITH ALVEOLAR HYPOVENTILATION Status : Acute (8) MAY (obstructive sleep apnea) Code(s): G47.33 - OBSTRUCTIVE SLEEP APNEA (ADULT) (PEDIATRIC) Status: Suspected (9) Hypertension Code(s): I10 - ESSENTIAL (PRIMARY) HYPERTENSION Status: Chronic Qualifiers: Hypertension type: essential hypertension Qualified Code(s): I10 - Essential (primary) hypertension (10) CAD (coronary artery disease) Code(s): I25.10 - ATHSCL HEART DISEASE OF [place] CORONARY ARTERY W/O ANG PCTRS Status: Acute (11) Morbid obesity Code(s): E66.01 - MORBID (SEVERE) OBESITY DUE TO EXCESS CALORIES Status: Acute - Plan Plan: Acute hypoxic respiratory failure due to suspected new onset CHF- - new HFpEF vs long standing pulmonary HTN 2/2 OHS/MAY - Echo still with EF 50-55%, no comment on diastolic function. - stress test negative - s/p Metolazonex1, Output of over 3L on day one and 3L on day 2 and 3L on day 3 - Transition to PO Lasix today. - LE dopplers negative - Not concerned for PNA at this time as CT shows more atelectasis picture. Repeat CXR this morning and continue to monitor VS. - strict I&Os, daily weights, fluid restrict Deconditioning- - PT signed off, recommending HH with PT and outpatient cardiac rehab. - Recently discharged from Rehab on Wednesday. Subacute urinary retention- - continue indwelling guadalupe at this time per urology - Dr. Cruz following, appreciate recs - plan to d/c guadalupe tomorrow am and monitor urine retention Chronic Afib, rate controlled- - HR stable. continue rate control meds and discuss restarting NOAC pending resolution/tx of LGIB. Recent LGIB- - hgb stable at 9.3 (improved from prior hospitalization). - continue iron po and plan for outpt cscope. No concern for GI bleed at this time KOREY on CKD3- - likely 2/2 lasix - Cr 1.6 today - repeat BMP tomorrow HTN- - cont home meds. - decrease home amlodipine due to hypotension - continue Lisinopril BID OHS/MAY- - cont bipap/ pos pressure vent qhs. - continue O2 during the day. - patient with room air trial with saturation of 82%. It is imperative to have continuous o2 morbid obesity- - summer camp counselor re: healthy lifestyle changes. Post nasal Drip - Flonase daily Dispo: Patient much improved from respiratory standpoint, back at baseline. Will plan to d/c home tomorrow after reevaluating kidney function and urinary retention.
[2017-10-20] MEDS ORDERED: Amlodipine 5 MG TAB PO SCH (09:00)
[2017-10-20] MEDS: Carvedilol 3.125 MG TAB PO SCH ×2 (09:35→21:15)
[2017-10-20] MEDS: Ferrous Sulfate 325 MG TAB PO SCH (09:35)
[2017-10-20] MEDS: Furosemide 40 MG TAB PO SCH ×2 (09:36→13:22)
[2017-10-20] MEDS: Tamsulosin HCl 0.4 MG CAP PO SCH (09:36)
[2017-10-20] MEDS: Enoxaparin Sodium 40 MG/0.4 ML SYRINGE SC SCH (09:41)
[2017-10-20] MEDS: Lisinopril 10 MG TAB PO SCH ×2 (10:08→21:16)
--- NOTE | 2017-10-20 10:23 | CON ---
DATE OF CONSULTATION: 10/19/2017 INDICATION FOR CONSULTATION: A 77-year-old patient with congestive heart failure exacerbation due to volume overload. HISTORY OF PRESENT ILLNESS: This is a very unfortunate 77-year-old gentleman who was recently in the hospital where he was diagnosed with COPD, sleep apnea, and had congestive heart failure. He was se nt to rehabilitation, was there for about a week and was discharged and then when he went home, since he was lying down, he could not breathe. Apparently, he had some problems with his blood pressure w hile in rehabilitation and his diuretics were discontinued, and he presented then with volume overloa d with lower extremity edema and shortness of breath. He did have a CPAP mask, which has helped some , but when he was lying down, he still could not breathe. He said that since being in the hospital h ere, he has been placed back on IV diuretics and has diuresed quite a bit and his shortness of breath has improved significantly. He still does have some lower extremity edema, but he has put out essen tially about a little over 6 liters in the last 24 hours since being here in the hospital and is feel ing somewhat better, but I would continue the diuretics. Obviously, he is going to need some diuresi s after he is discharged from the hospital. PAST MEDICAL HISTORY: Significant for obstructive sleep apnea. He has a history restrictive lung di sease, morbid obesity, history of right knee replacement. He has had some congestive heart failure s ymptoms most likely associated with right heart failure. ALLERGIES: None. MEDICATIONS: At this time include Tylenol, Norvasc 5 mg b.i.d., atorvastatin 40 mg at bedtime, Coreg 3.125 mg b.i.d. He is on Lovenox subcu. He is on ferrous sulfate. Lasix 40 mg IV and which was ch anged this morning to p.o. at 40 mg b.i.d. He is on albuterol, ipratropium nebulizer treatments, lis inopril 10 mg a day. He is on inhalers also for his COPD. He is on nitroglycerin as needed, Zofran as needed, Protonix 40 mg b.i.d., Flomax 0.4 mg daily. FAMILY HISTORY: Noncontributory. REVIEW OF SYSTEMS: He denied any new HEENT complaints. Pulmonary complaints of shortness of breath. He had no GI complaints such as nausea, vomiting or diarrhea. He did have some abdominal bloating. He said he had no complaints such as dysuria, polyuria, or hematuria. Musculoskeletal: He comp lains of lower extremity edema. Neurologic: No history of seizures or syncope. His last echocardiogram did show ejection fraction of 50% to 55%. There was question of diastolic dy sfunction. I believe this most likely is associated with his shortness of breath and edema at this t fab also. He does have a history of atrial fibrillation. He had been on oral anticoagulation in the past when he was recently admitted and had a GI bleed, so he is no longer taking those medications. It would p robably be to his advantage to at least be on a baby aspirin if he is able to tolerate it. PHYSICAL EXAMINATION: VITAL SIGNS: Blood pressure is 108/60, O2 saturations are 96% on, I believe, 2-3 liters of oxygen, r espiratory rate is 18. He is afebrile. Heart rate is 96-100. GENERAL: Reveals a morbidly obese gentleman, in no acute distress, alert and oriented. CHEST: Clear to auscultation without rales, rhonchi or wheezing. CARDIOVASCULAR: Exam reveals a somewhat irregular rhythm, did not hear any significant murmurs, heav es, thrills, bruits or rubs. ABDOMEN: Shows morbid obesity. Positive bowel sounds are present. EXTREMITIES: Showed 1-2+ lower extremity edema mainly involving the right lower extremity. Pedal pu lses are present. NEUROLOGIC: The patient appears to be fully intact. He has normal strength and tone. He does have a walker at the bedside and says he has been ambulating. CHF excerebration most likely due to some degree of right-sided failure with sleep apnea and COPD. H e did have a stress test performed which showed no evidence of ischemia, ejection fraction was 53%. EKG shows atrial fibrillation with well controlled ventricular response. IMPRESSION AND PLAN: 1. Chronic obstructive pulmonary disease with congestive heart failure exacerbation, most likely rig ht-sided failure with some probably degree of diastolic dysfunction. He has a normal systolic functi on, difficult to determine if he has truly diastolic dysfunction with atrial fibrillation. It was no t documented on his echocardiogram from approximately March 2017, and this was repeated and we will review that prior to the patient's discharge. 2. Atrial fibrillation, which appears to be chronic now. He is unable to take oral anticoagulation due to gastrointestinal bleed on his last admission, but may need to try at least a baby aspirin to s ee whether or not he will tolerate this to decrease the risk of cerebrovascular accident at least juan ewhat. 3. Morbid obesity. He has been warned on several occasions to try to watch his weight, and he has v maryan difficult time following a diet and with minimal activity, it is very difficult for him to have a ny activity to lose weight or to burn any calories. 4. Hypertension, which is under very good control at this time. 5. History of chronic kidney disease. His creatinine has actually elevated since being put on diure tics. Yesterday creatinine was 1.1 and today is 1.68 with a BUN of 30. 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 We will have to be careful with th e diuretics. His BNP was not significantly elevated on admission on 10/17/2017. His BNP was only 31 5, which is most likely more compatible with a right-sided failure and diastolic dysfunction. His ca rdiac enzymes are unremarkable. 6. History of gastrointestinal bleed and anemia. This also has remained relatively stable with the hemoglobin has decreased from 9.3 to 9.1 since admission, which may be due to blood draws, but one wo uld suspect that the hemoglobin would increase after diuresis. For this, I will continue to follow h im very carefully. Repeat some laboratory data tomorrow. We will need to be very careful with his d iuretics. We will need to readjust his medications and he will need to be placed on fluid restrictio ns as well as salt. He may need some dietary consultations.
--- NOTE | 2017-10-20 11:27 | PRG ---
DATE OF SERVICE: 10/20/2017 SUBJECTIVE: The patient is stable, no new complaints, denies chest pain or shortness of breath. OBJECTIVE: VITAL SIGNS: Stable at 98.2, 94, 107/64. I's and O's 1030 in, 4100 out. He is negative 3 liters. Urine output is clear. ABDOMEN: Obese, protuberant. Some discharge noted at the parameatus site, nursing staff is cleaning it with peroxide bacitracin ointment b.i.d. per my orders. EXTREMITIES: Pitting edema; however, this is improved. PERTINENT LABORATORY DATA: BUN 30, creatinine 1.6. IMPRESSION AND PLAN: Mr. Rodgers is a 77-year-old male with history of severe COPD, history of respiratory failure. We admitted due to recurrent respiratory distress secondary to fluid overload. He has been diuresed aggressively with IV Lasix. 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 On today's exam, possible bulbar stricture in the past with false passage, initial postvoid residual 7- 800 mL with Noel catheter placement under cystoscopic guidance. Continue Flomax. Renal insufficiency secondary to aggressive diuresis. Consider decreasing his Lasix. When his urine output is decreased, we will remove his Noel catheter for a voiding trial. Consider Pulmonology reevaluation. Given his clinical status, the patient will most likely be transitioned back to rehab when medically stable. LORA
--- NOTE | 2017-10-20 11:39 | ADD-PRG ---
DATE OF SERVICE: 10/20/2017 This is an addendum to the note of Dr. Francoise Daniel. Mr. Rodgers is very pleasant this morning. Awake, alert, sitting in bed in no distress. Blood pressu re is now 107/64. His pulse rate is 80 and irregularly irregular. His lungs are clear. His abdomen is soft. He is at his baseline and ready for discharge. We will make a final check of a BMP this a fternoon given his mild KOREY. If this is back to near normal he will be discharged for followup with his PCP.
[2017-10-20 12:42] LABS: BUN (Urea Nitrogen) 30 mg/dL (8.4-25.7); Calc. Creatinine Clearance 76 mL/min (70-130); Calcium 9.2 mg/dL (7.8-10.44); Estimated GFR-MDRD 42; Glucose 102 mg/dL (83-110)
[2017-10-20 12:51] LABS: Anion Gap 16 mmol/L (10-20); Carbon Dioxide 34 mmol/L (23-31); Chloride 92 mmol/L (98-107); Potassium 3.9 mmol/L (3.5-5.1); Sodium 138 mmol/L (136-145)
[2017-10-20] MEDS: Atorvastatin Calcium 40 MG TAB PO SCH (21:15)
[2017-10-20] MEDS: hydrOXYzine 25 MG TAB PO PRN (21:15)
[2017-10-21 06:46] VITALS: BMI 42.3
[2017-10-21] MEDS: Mometasone/Formoterol 120 PUFF INHALER INH SCH (07:27)
[2017-10-21 08:01] LABS: #Eosinphils 0.2 thou/uL (0.0-0.7); #Monocytes 0.7 thou/uL (0.11-0.59); #Neutrophils 4.3 thou/uL (1.40-6.50); %Basophils 0.1 % (0.0-1.0); %Eosinophils 3.6 % (0.0-10.0); %Monocytes 11.1 % (0.0-10.0); %Neutrophils 69.2 % (42.0-75.0); Mean Corpuscular HGB CONC 29.4 g/dL (32.0-36.0); Mean Platelet Volume 7.6 fL (7.4-10.4); Platelet Count 229 thou/uL (130-400); RBC Distribution Width 16.7 % (11.5-14.5); Red Blood Cell (RBC) Count 3.98 mill/uL (4.70-6.10); White Blood Cell (WBC) Count 6.2 thou/uL (4.8-10.8)
[2017-10-21 08:18] LABS: Anion Gap 14 mmol/L (10-20); BUN (Urea Nitrogen) 34 mg/dL (8.4-25.7); Calc. Creatinine Clearance 71 mL/min (70-130); Calcium 9.2 mg/dL (7.8-10.44); Carbon Dioxide 37 mmol/L (23-31); Chloride 92 mmol/L (98-107); Estimated GFR-MDRD 39; Glucose 109 mg/dL (83-110); Potassium 4.2 mmol/L (3.5-5.1); Sodium 139 mmol/L (136-145)
[2017-10-21 08:23] LABS: Hypochromia SLIGHT = 6-15 cells (100X) (0-5/hpf); MDiff Complete? YES; PLT Morphology Comment Appears Adequate; Polychromasia SLIGHT = 2-3 cells (100X) (0-2/hpf)
--- NOTE | 2017-10-21 08:49 | PRG ---
DATE OF SERVICE: 10/21/2017 INPATIENT PROGRESS NOTE SUBJECTIVE: The patient denies chest pain or shortness of breath. Has not yet received his morning p.o. Lasix. I was called yesterday as [facility] wants to discharge the patient in the afternoon, I prefer the patient to stay inhouse to monitor his voiding status, therefore Noel catheter was removed this morning at 4:00 a.m. PVR check this morning is minimal. However, he only voided 100 mL. PHYSICAL EXAMINATION: VITAL SIGNS: Stable 97.8, 95, 16, 95% on 2 liters. I's and O's 1000 in and 2150 out. He is negative 1.1 liters. ABDOMEN: Morbidly obese, protuberant, no rigidity, no rebound, no CVA tenderness, no suprapubic tenderness is appreciated. GENITOURINARY: Small eschar at the meatus. No purulent discharge. PERTINENT LABORATORY DATA: Hemoglobin stable at 10. BUN 34, creatinine 1.7, yesterday it was 1.6, prior to that creatinine 1.1. Patient does have renal history of chronic renal insufficiency exacerbated by aggressive diuresis. IMPRESSION AND PLAN: 1. Mr. Rodgers is a 77-year-old male previously admitted for gastrointestinal bleed, history of atrial fibrillation; therefore anticoagulation has been held. Due to patient's significant pulmonary comorbidity, GI workup under anesthesia not performed as there is concern regarding recurrent respiratory failure. 2. Previous urologic consultation on admission due to traumatic Noel catheter placement, occult bulbar stricture cannot be ruled out. However, Noel catheter was able to be passed with cystoscopic guidance. 3. History of mild meatal stenosis. 4. History of urinary retention of 800 mL. Placed the patient on Flomax for empiric benign prostatic hyperplasia component as well. Prior CT stone protocol demonstrated no evidence of obstructive uropathy, renal or bladder stone. The patient is being worked up to be discharged this afternoon. I recommend the patient be held until his voiding status has been further evaluated. Nursing staff will contact me this afternoon after a repeat postvoid residual. If it is consistently minimal with no significant postvoid residual concern, he may be discharged with Flomax. His followup appointment with me in chart for 11/22/2016. Elective cystoscopy is advised. Addendum: Patient voided multiple occasions, postvoid residual results of been variable from 40-280cc Revisited with patient in the afternoon, he voided 120 mL of clear yellow urine , caliber flow is strong. Repeat bladder ultrasound performed by myself demonstrated results grossly variable, therefore patient was formally prepped and draped. A 16 Kinyarwanda Noel catheter passed without difficulty. 250 mL of clear dilute urine obtained for true postvoid residual. We'll discharge patient with indwelling Noel catheter. He is been cleared by physical therapy to be discharged home. Conference with primary care. He will be discharged with Flomax , ciprofloxacin 250 mg one by mouth twice a day until follow-up appointment. He will follow up in my office next at 1 PM for a voiding trial. If postvoid residual is relatively stable, less than 200 mL, we'll monitor his voiding status without Noel catheter. Elective cystoscopy as previously would be advised. [facility]
[2017-10-21] MEDS ORDERED: Lisinopril 5 MG TAB PO SCH (09:00)
[2017-10-21] MEDS ORDERED: Polyethylene Glycol 3350 17 GM Packet PO SCH (09:00)
[2017-10-21] MEDS: Carvedilol 3.125 MG TAB PO SCH (09:24)
[2017-10-21] MEDS: Furosemide 40 MG TAB PO SCH ×2 (09:25→13:30)
[2017-10-21] MEDS: Tamsulosin HCl 0.4 MG CAP PO SCH (09:25)
[2017-10-21] MEDS: Ferrous Sulfate 325 MG TAB PO SCH (09:25)
[2017-10-21] MEDS: Enoxaparin Sodium 40 MG/0.4 ML SYRINGE SC SCH (09:26)
--- NOTE | 2017-10-21 12:23 | PDOC.CTH ---
Cardiology Progress Note - Subjective The pt seen and examined. No overnight events. No cardiac complaints. - Objective Vital Signs Temp Pulse Resp BP BP Pulse Ox 10/21/17 11:59 97.5 F L 96 18 120/74 91 L 10/21/17 09:26 98 10/21/17 08:00 97.7 F 98 17 104/64 95 10/21/17 07:27 95 10/21/17 07:25 97 20 95 10/21/17 04:00 97.8 F 95 16 92/55 L 93 L Weight 311 lb 9.6 oz 10/20/17 10/21/17 10/22/17 06:59 06:59 06:59 Intake Total 1030 1000 Output Total 4100 2150 Balance -3070 -1150 - Physical Examination General/Neuro: alert & oriented x3 Neck: no JVD present Lungs: CTA (diminished at bases) Heart: other: (irregular ) Abdomen: soft Extremities: other: (2+ pitting edema to RLE;) - Telemetry Telemetry Rhythm: AFib 90s - Labs Result Diagrams: 10/21/17 07:46 10/21/17 07:27 Troponin/CKMB CK-MB (CK-2) 1.0 ng/mL (0-6.6) 10/17/17 10:06 Troponin I 0.010 ng/mL (< 0.028) 10/17/17 17:08 - Assessment/Plan 1. COPD exacerbation - stable; managed by PCP 2. Afib - remains in Afib with HR 90s. Asymptomatic. On BBlocker and ASA 81mg daily; Hx of GI bleed; cont. monitor on tele 3. Chronic Diastolic dysfunction - Has lost 12 lbs during this admission; On Lasix 40mg PO BID, BBlocker, and CHETAN; cont. current medication; Refer to CHF clinic 4. HTN - stable with current medication; cont. monitor 5. CKD stage 3 - Dosage of CHETAN was decreased; cont. monitor 6. Urinary retention due to BPH - managed by urologist 7. MAY - on CPAP at home 8. Obese - Weight management education given to the pt and family * Echo on 10/18/17 showed EF 50-55%, mod RVH, mod-severe LAE, mild MR and TR * stress test on 10/18/17 showed normal * From cardiac standpoint, the pt is stable to d/c home. F/u with Dr Harrison' office within 1 month. Review of Systems - Review of Systems Constitutional: reports: no symptoms reported EENTM: reports: no symptoms reported Respiratory: reports: no symptoms reported Cardiac (ROS): reports: no symptoms reported ABD/GI: reports: no symptoms reported : reports: no symptoms reported Musculoskeletal: reports: no symptoms reported
[2017-10-21] MEDS ORDERED: Lidocaine 2% Jelly 5 ML TUBE TOP SCH (12:45)
--- NOTE | 2017-10-21 13:57 | ADD-PRG ---
ADDENDUM To the note of Dr. Francoise Daniel. Mr. Rodgers looks and feels much better this morning. His creatinine is still slightly elevated. He has been vigorously diuresed over the last several days and I suspect his renal function will improve with reduction of the Lasix dosage and some oral rehydration. In the event, he looks and feels much better. He is having no difficulty with his breathing. He has also been followed by Urology and fleming s sustained some urinary retention, which has improved. The urinary retention likely related to BPH, although this will be continued to be evaluated by Urology. We can perhaps discharge him later this afternoon and continue following his renal functions as an outpatient.
[2017-10-21 17:54] VITALS: BP 131/75; TEMP 98
--- NOTE | 2017-10-21 19:21 | PDOC.FM ---
- Subjective Subjective: Patient is doing well this morning. He reports his guadalupe was discontinued earlier this morning and has been able to urinate since it's removal. He reports no SOB at this time. Overnight, blood pressures again were low. Patient reports he is asymptomatic during these times. This morning's Lisinopril was held. Also overnight, patient had CPAP mishap where there it was not working properly and desatted into the 80's. After fixing CPAP, patient O2 sats normalized. Patient is eating well, tolerating CPAP, moving bowels, and denies pain at this time. - Objective MAR Reviewed: Yes Vital Signs & Weight: Vital Signs (12 hours) Temp Pulse Resp BP BP Pulse Ox 10/21/17 16:30 98.0 F 95 17 131/75 94 L 10/21/17 13:08 92 16 98 10/21/17 11:59 97.5 F L 96 18 120/74 91 L 10/21/17 09:26 98 10/21/17 08:00 97.7 F 98 17 104/64 95 10/21/17 07:27 95 10/21/17 07:25 97 20 95 Weight Weight 141.339 kg I&O: 10/20/17 10/21/17 10/22/17 06:59 06:59 06:59 Intake Total 1030 1000 Output Total 4100 2150 Balance -3070 -1150 Result Diagrams: 10/21/17 07:46 10/21/17 07:27 Phys Exam - Physical Examination Constitutional: NAD HEENT: PERRLA, moist MMs Respiratory: no wheezing, no rales, clear to auscultation bilateral distant lung sounds Cardiovascular: RRR, no significant murmur Gastrointestinal: soft, non-tender, no distention 1+ pitting edema bilaterally Neurological: non-focal, moves all 4 limbs Psychiatric: A&O x 3 Dx/Plan (1) Acute and chronic respiratory failure with hypoxia Code(s): J96.21 - ACUTE AND CHRONIC RESPIRATORY FAILURE WITH HYPOXIA Status: Acute (2) Urinary retention due to benign prostatic hyperplasia Code(s): N40.1 - BENIGN PROSTATIC HYPERPLASIA WITH LOWER URINARY TRACT SYMP; R33.8 - OTHER RETENTION OF URINE Status: Acute (3) Atrial fibrillation Code(s): I48.91 - UNSPECIFIED ATRIAL FIBRILLATION Status: Acute Qualifiers: Atrial fibrillation type: unspecified Qualified Code(s): I48.91 - Unspecified atrial fibrillation (4) KOREY (acute kidney injury) Code(s): N17.9 - ACUTE KIDNEY FAILURE, UNSPECIFIED Status: Acute (5) CKD (chronic kidney disease) Code(s): N18.9 - CHRONIC KIDNEY DISEASE, UNSPECIFIED Status: Acute Qualifiers: Chronic kidney disease stage: unspecified stage Qualified Code(s): N18.9 - Chronic kidney disease, unspecified (6) Normocytic anemia Code(s): D64.9 - ANEMIA, UNSPECIFIED Status: Acute (7) Obesity hypoventilation syndrome Code(s): E66.2 - MORBID (SEVERE) OBESITY WITH ALVEOLAR HYPOVENTILATION Status : Acute (8) MAY (obstructive sleep apnea) Code(s): G47.33 - OBSTRUCTIVE SLEEP APNEA (ADULT) (PEDIATRIC) Status: Suspected (9) Hypertension Code(s): I10 - ESSENTIAL (PRIMARY) HYPERTENSION Status: Chronic Qualifiers: Hypertension type: essential hypertension Qualified Code(s): I10 - Essential (primary) hypertension (10) CAD (coronary artery disease) Code(s): I25.10 - ATHSCL HEART DISEASE OF [place] CORONARY ARTERY W/O ANG PCTRS Status: Acute (11) Morbid obesity Code(s): E66.01 - MORBID (SEVERE) OBESITY DUE TO EXCESS CALORIES Status: Acute - Plan Plan: Acute hypoxic respiratory failure due to suspected new onset CHF- - new HFpEF vs long standing pulmonary HTN 2/2 OHS/MAY - Echo still with EF 50-55%, no comment on diastolic function. - stress test negative, dopplers negative - diuresed 9L over the last 3 days - Continue PO Lasix, pharmacy provided education on prn lasix tabs for weight change > 2-3lbs in 1 day - Concern for possible PNA initially, patient continues to be afebrile and asymptomatic, likely atelectasis - strict I&Os, daily weights, fluid restrict Subacute urinary retention- - indwelling guadalupe removed this morning with post void residual of about 150- 200cc - Dr. Cruz to see patient today and make recommendations going forward - continue tamsulosin Chronic Afib, rate controlled- - HR stable. continue rate control meds - Will start ASA per Dr. Harrison recs since Hgb improving Recent LGIB- - hgb improved to 10 today - continue iron po and plan for outpt cscope. No concern for GI bleed at this time KOREY on CKD3- - likely 2/2 overdiuresis with lasix. Encourage PO hydration, will likely correct on its own. - Cr 1.6 today, worsened to 1.7 today - will likely d/c home today with repeat BMP next week with PCP. HTN- - Hyopotensive episodes presumably due to significant diuresis - decrease home Lisinopril to 5mg PO BID - discontinue Amlodipine OHS/MAY- - cont bipap/ pos pressure vent qhs and at nap times - continue O2 during the day. - patient with room air trial with saturation of 82%. It is imperative to have continuous o2 morbid obesity- - area counselor re: healthy lifestyle changes. Post nasal Drip - Flonase daily Deconditioning- - PT signed off, recommending HH with PT and outpatient cardiac rehab. - Recently discharged from Rehab on Wednesday. Dispo: Patient much improved from respiratory standpoint, back at baseline. Will plan to d/c home today.
--- NOTE | 2017-11-09 10:13 | DIS-2 ---
DATE OF ADMISSION: 10/17/2017 DATE OF DISCHARGE: 10/21/2017 RESIDENT: Francoise Daniel D.O. ADMITTING ATTENDING: Pasha Vidales M.D. DISCHARGE ATTENDING: Isaac Rubalcava M.D. CONSULTATIONS: 1. Cardiology, Dr. Harrison. 2. Urology, Dr. Jude Pineda. PROCEDURES/IMAGIN. Chest x-ray on 10/17/2017 which is compared to an x-ray on 10/02/2017 revealed a slightly more prominent pleural and parenchymal opacity change in the right base as well as right pleural effusion and right lower lobe atelectasis. 2. Chest/thorax CTA on 10/17/2017 revealed worsening bilateral lower lung zone pleural effusion and pleural based parenchymal changes, worse on the right compared to prior study on 03/07/2017. Of note, small nodules located in the left lower lobe on a prior study are not redemonstrated on this study. 3. Echocardiogram with ejection fraction of 50-55% and left atrium moderately to severely dilated and atrial fibrillation as well as moderately enlarged right ventricle. 4. Venogram showed no evidence of DVT 5. Nuclear medicine stress test with no significant perfusion defect. 6. Chest x-ray on 10/19/2017 with worsening bibasilar opacities, peripheral pneumonia or atelectasis, continued right-sided pleural effusion. DISCHARGE MEDICATIONS: 1. DuoNeb 3 mL nebulizer q.6 h. p.r.n. 2. Breo Ellipta 100 mcg inhalation daily. 3. Aspirin 81 mg p.o.daily. 4. Daily multivitamin. 5. Ferrous sulfate 325 p.o. q.a.m. 6. Coreg 3.125 mg p.o. b.i.d. 7. Lasix 40 mg p.o. b.i.d. 8. Flomax 0.4 mg p.o. daily. 9. Protonix 40 mg p.o. b.i.d. 10. Lisinopril 5 mg p.o. b.i.d. 11. Ciprofloxacin 250 mg p.o. b.i.d. 10. Lipitor 40 mg p.o. at bedtime. DISCONTINUED MEDICATIONS: Lisinopril 10 mg b.i.d. HISTORY OF PRESENT ILLNESS AND HOSPITAL COURSE: A 76-year-old male with past medical history of hypertension and morbid obesity and recent diagnosis of MAY who comes in with increasing shortness of breath and leg swelling. The patient has been recently discharged from the hospital on 2017 for a GI bleed as well as MAY/obesity hypoventilation syndrome. He was discharged from rehab on 10/16/2017 and reports increasing shortness of breath and leg swelling since discharge from rehab. On prior admission, an echo was performed with normal EF. On this admission, echo is repeated which again shows ejection fraction of 50-55%. Initially patient presented with acute hypoxic respiratory failure due to suspected new onset of congestive heart failure versus long-standing pulmonary hypertension secondary to the MAY/OHS. BNP was elevated from baseline to 315 and a dose of metolazone was given followed by IV Lasix. The patient diuresed at least 3 liters the first night and continued with good diuresis and overall symptomatic improvement. Due to the leg swelling, a venogram was done to rule out DVT, which was negative and the patient did have an elevated D-dimer, which was followed up with a negative CTA. In regard to the treatment going forward, the patient was put back on his home dose of p.o. Lasix and educated on daily weights and went to take an extra dose of Lasix. The patient did develop an acute kidney injury probably secondary to Lasix with discharge creatinine of 1.7. Recommended a repeat BMP at next clinic visit to follow. The patient wore CPAP throughout the day and was also educated on the importance of wearing CPAP and preventing further episodes, most likely diagnosis of pulmonary hypertension. On previous admission, he was found to have subacute urinary retention and was admitted with Noel in place. Dr. Jude Pineda was consulted who is his urologist. Did do a voiding trial, but the patient still with increased residual. Noel was again placed and scheduled for repeat voiding trial in outpatient setting the following week. On initial CTA, there was no evidence of coronary calcification with increased risk factors and CTA findings. The patient did get a stress test, which was negative. The patient with chronic atrial fibrillation, not currently on anticoagulation due to prior GI bleed. Dr. Harrison was consulted for continuation of care and recommended placing the patient back on aspirin if hemoglobin is stabilizing. Hemoglobin at discharge was 10.0, up from admission of 9.3. Recommended continuing iron. Of note, the patient did develop some hypotensive episodes during stay with blood pressures in the 90s/40s. It is suspected this is due to acute change and intravascular volume by aggressive diuresis. With the increased use of Lasix, going forward it is recommended to decrease home lisinopril to 5 mg once daily. The patient also to check home blood pressures and keep log for an outpatient visit. Last blood pressure prior to discharge was 131/75. On chest x-ray and CT, there was concern for possible consolidation versus atelectasis. The patient was afebrile without coughing or any other symptoms to suggest infectious etiology. Likely atelectasis. The patient was seen and evaluated by physical therapy and he is not a candidate for rehabilitation. The patient was discharged home with outpatient cardiac rehabilitation, home health with PT, and respiratory staff physical therapy assistant to aid with nebulizer treatments. DISPOSITION: Stable. DISCHARGE INSTRUCTIONS: 1. Location: Home. 2. Diet: Heart healthy, low sodium, fluid restriction at 1500 mL. 3. Activity: As tolerated. Imperative that the patient wear continuous oxygen during the day and CPAP at night. 4. Follow up in one week with Dr. Cruz for voiding trial and PCP, Dr. Samson, in 1-2 weeks, Dr. Sandoval with scheduled appointment, and Dr. Harrison within 3-4 weeks. LORA
--- NOTE | 2017-11-29 15:15 | STRESS ---
Acquisition Time: 2017-10-18 11:12:14 Total Exercise Time: 00:01:00 Test Indications: SHORTNESS OF BREATH Medications: Protocol: LEXISCAN Max HR: 118 BPM 83% of Pred: 142 BPM Max BP: 092/060 mmHG Max Work Load: 1.0 METS RESTING ECG: ATRIAL FIBRILLATION AT 102 BPM WITH LEFT AXIS DEVIATION, BIFASCICULAR BLOCK, AND NON-SPECIFIC ST SEGMENT AND T-WAVE CHANGES SYMPTOMS: NONE NORMAL BP RESPONSE ECTOPY: NONE ECG STRESS: NO SIGNIFICANT CHANGES INTERPRETATION: INDETERMINATE ECG/AWAIT NUCLEAR IMAGES FOR DEFINITIVE DIAGNOSIS Confirmed by ANDRES LARA ELLEN ([id number]) on 11/29/2017 3:15:48 PM Referred By: MD Mario GAUTAM Confirmed By:SUJIT LARA PA-C
== END 2017-10-21 16:40 | disposition home health service (06) | DRG 314 ==
LOC: ERS 09:43 → 2NO 13:59
PROVIDERS: ADMIT Family Medicine; ATTEND Family Medicine
PROC: 5A09357 Assistance with Respiratory Ventilation, Less than 24 Consecutive Hours, Continuous Positive Airway Pressure (ICD-10-PCS; principal; 2017-10-18)
PROC: 5A09357 Assistance with Respiratory Ventilation, Less than 24 Consecutive Hours, Continuous Positive Airway Pressure (ICD-10-PCS; 2017-10-19)
PROC: 5A09357 Assistance with Respiratory Ventilation, Less than 24 Consecutive Hours, Continuous Positive Airway Pressure (ICD-10-PCS; 2017-10-20)
PROC: 0T9B70Z Drainage of Bladder with Drainage Device, Via Natural or Artificial Opening (ICD-10-PCS; 2017-10-21)
DX: J96.21 Acute and chronic respiratory failure with hypoxia; I50.33 Acute on chronic diastolic (congestive) heart failure; I48.2 Chronic atrial fibrillation; Z87.891 Personal history of nicotine dependence; R33.8 Other retention of urine; I95.2 Hypotension due to drugs; I25.10 Atherosclerotic heart disease of native coronary artery without angina pectoris; I50.811 Acute right heart failure; I27.29 Other secondary pulmonary hypertension; E66.2 Morbid (severe) obesity with alveolar hypoventilation; R09.82 Postnasal drip; N18.3 Chronic kidney disease, stage 3 (moderate); D64.9 Anemia, unspecified; N17.9 Acute kidney failure, unspecified; I13.0 Hypertensive heart and chronic kidney disease with heart failure and stage 1 through stage 4 chronic kidney disease, or unspecified chronic kidney disease; N40.1 Benign prostatic hyperplasia with lower urinary tract symptoms; J44.1 Chronic obstructive pulmonary disease with (acute) exacerbation; T50.1X5A Adverse effect of loop [high-ceiling] diuretics, initial encounter; G47.33 Obstructive sleep apnea (adult) (pediatric); Z68.42 Body mass index [BMI] 45.0-49.9, adult
CPT/HCPCS: 36415; 71045; 71046; 71275; 78452; 80048; 80053; 82553; 83880; 84484; 85025; 85379; 93005; 93017; 93306; 93798; 93970; 94640; 94660; 94760; A4216; A9500; G8978-GP-CK; G8979-GP-CJ; G8987-GO-CJ; G8988-GO-CI; J1650; J1940; J2785; J7620

== ENCOUNTER 2017-11-04 10:40 | Outpatient (CLI) | payer MEDICARE, OTHER ==
--- NOTE | 2017-11-04 12:23 | RAD ---
PA AND LATERAL CHEST: Date: 11/04/17 INDICATION: History of dyspnea. FINDINGS: There is stable elevation of the right hemidiaphragm. There is persistent atelectasis within both low er lobes. There is cardiomegaly. Pulmonary vasculature is within normal limits. Vascular calcificatio n of aortic arch is stable. Multilevel spondylosis of the thoracic spine is present. The previously s een pleural effusions have resolved. IMPRESSION: 1. Persistent bibasilar atelectasis. 2. Resolution of bilateral pleural effusions. 3. Persistent cardiomegaly. POS: [facility]
== END 2017-11-04 10:41 | disposition home or self-care (01) ==
LOC: RAD 10:40
PROVIDERS: ATTEND Internal Medicine Critical Care Medicine
DX: R06.00 Dyspnea, unspecified (principal); J90 Pleural effusion, not elsewhere classified; J98.11 Atelectasis; I51.7 Cardiomegaly
CPT/HCPCS: 71046

== ENCOUNTER 2017-12-29 09:54 | Outpatient (CLI) | payer MEDICARE, OTHER ==
--- NOTE | 2017-12-29 12:25 | RAD ---
CHEST 2 VIEWS: COMPARISON: 11/04/17. HISTORY: Dyspnea. FINDINGS: Atherosclerosis of the aorta. Enlarged cardiac silhouette. The pulmonary vessels and hilum are norm al. Costophrenic angles are clear. Stable elevation of the right hemidiaphragm. Chronic changes th roughout the lung parenchyma. Hyperinflation is again noted. No pneumothorax or osseous abnormaliti es. IMPRESSION: 1. Chronic changes. 2. Atherosclerosis. POS: LENI
== END 2017-12-29 09:55 | disposition home or self-care (01) ==
LOC: RAD 09:54
PROVIDERS: ATTEND Internal Medicine Critical Care Medicine
DX: I70.0 Atherosclerosis of aorta (principal); R06.00 Dyspnea, unspecified
CPT/HCPCS: 71046; 80048; 81001; 85027; 85610; 85730; 87086; 93005; 93010

== ENCOUNTER 2017-12-29 12:02 | Outpatient (CLI) | payer MEDICARE, OTHER ==
[2017-12-29 12:59] LABS: Hemoglobin 10.7 g/dL (14.0-18.0); Mean Corpuscular HGB CONC 30.8 g/dL (32.0-36.0); Mean Corpuscular Hemoglobin 24.8 pg (27.0-31.0); Mean Corpuscular Volume 80.4 fl (80.0-94.0); Mean Platelet Volume 8.3 fL (7.4-10.4); Platelet Count 213 thou/uL (130-400); RBC Distribution Width 17.6 % (11.5-14.5); Red Blood Cell (RBC) Count 4.33 mill/uL (4.70-6.10); White Blood Cell (WBC) Count 7.1 thou/uL (4.8-10.8)
[2017-12-29 13:11] LABS: PTT 39.8 SEC (22.9-36.1); Prothrombin Time 13.4 SEC (12.0-14.7)
[2017-12-29 13:20] LABS: Anion Gap 13 mmol/L (10-20); BUN (Urea Nitrogen) 24 mg/dL (8.4-25.7); Calc. Creatinine Clearance 0 mL/min (70-130); Calcium 9.4 mg/dL (7.8-10.44); Carbon Dioxide 28 mmol/L (23-31); Chloride 101 mmol/L (98-107); Estimated GFR-MDRD 61; Glucose 94 mg/dL (83-110); Sodium 138 mmol/L (136-145)
[2017-12-29 14:25] LABS: Bilirubin Negative (Negative); Blood, Urine Negative (Negative); Clarity CLEAR (Clear); Glucose, Urine (Dipstick) Negative (Negative); Leukocyte Small (Negative); Nitrite Negative (Negative); Protein, Urine (Dipstick) Negative (Neg-Trace); Specific Gravity, Urine 1.019 (1.002-1.036); pH, Urine 6.5 (5.0-9.0)
[2017-12-29 14:29] LABS: Bacteria/HPF None Seen HPF (None Seen); Hyaline Casts/LPF 0-3 HYALINE CAST LPF (0-3 Hyaline); RBC/HPF 0-3 HPF (0-3); Squamous Epithelial 0-3 HPF (0-3); WBC/HPF 0-3 HPF (0-3)
== END 2017-12-29 12:03 | disposition home or self-care (01) ==
LOC: LABBT 12:02
PROVIDERS: ATTEND Urology
DX: Z01.818 Encounter for other preprocedural examination (principal); N32.9 Bladder disorder, unspecified; J44.9 Chronic obstructive pulmonary disease, unspecified
CPT/HCPCS: 80048; 81001; 85027; 85610; 85730; 87086; 93005; 93010

== ENCOUNTER 2018-01-03 08:26 | Outpatient (CLI) | payer MEDICARE, OTHER | END 2018-01-03 08:27 | disposition home or self-care (01) | LOC: LABBT 08:26 | PROVIDERS: ATTEND Urology | DX: Z01.818 Encounter for other preprocedural examination (principal); N32.89 Other specified disorders of bladder; N35.9 Urethral stricture, unspecified | CPT/HCPCS: 86850; 86900; 86901 ==

== ENCOUNTER 2018-01-05 07:05 | Day surgery (SDC) | payer MEDICARE, OTHER ==
[2017-12-29 13:00] VITALS: BMI 42.7
[2018-01-05] MEDS ORDERED: Levofloxacin 500 mg/D5W 100 ml Premix Bag ONE (08:49)
[2018-01-05] MEDS ORDERED: Lidocaine 2% w/Epinephrine 1:200K 20 ML VIAL ONE (09:07)
[2018-01-05] MEDS ORDERED: Bupivacaine 0.75% W/DEXTROSE 8.25% 2 ML AMP ONE (09:07)
[2018-01-05] MEDS ORDERED: Lidocaine 2% 10 ML INJ ONE (09:07)
[2018-01-05] MEDS ORDERED: Lidocaine 1% (PF) 30 ML VIAL ONE (09:09)
[2018-01-05] MEDS ORDERED: Iothalamate Meglumine 60% 50 ML VIAL FS ONE (09:10)
[2018-01-05] MEDS ORDERED: Fentanyl 100 MCG/2 ML VIAL ONE (09:25)
[2018-01-05] MEDS ORDERED: Oxybutynin 5 MG TAB ONE (11:21)
[2018-01-05] MEDS ORDERED: Phenazopyridine HCl 97.5 MG TABLET ONE ×2 (11:23→11:24)
--- NOTE | 2018-01-05 11:29 | OP ---
DATE OF PROCEDURE: 01/05/2018 PREOPERATIVE DIAGNOSES: 1. A 77-year-old male with history of urethral stricture, history of traumatic Noel catheter placement with false passage. 2. Mild BPH. 3. Incidental bladder mass left lateral wall 1-1.5 cm appears superficial. POSTOPERATIVE DIAGNOSES: 1. A 77-year-old male with history of urethral stricture, history of traumatic Noel catheter placement with false passage. 2. Mild BPH. 3. Incidental bladder mass left lateral wall 1-1.5 cm appears superficial. PROCEDURES: Cystoscopy, meatal calibration dilatation with Matty sounds, direct vision internal urethrotomy of proximal penile bulbar stricture, transurethral resection of bladder tumor, 20 Nepalese three-way 30 mL Noel catheter placement over guidewire, CBI port plugged. SURGEON: Dr. Cruz. ANESTHESIA: Spinal. ANESTHESIOLOGIST: Tracey Corbett M.D. IV FLUIDS: 800 mL. BLOOD LOSS: Less than 50. INTRAOPERATIVE FINDINGS: 1. Mild meatal stenosis caliber, approximately 16 Nepalese. 2. Multiple proximal penile bulbar stricture; proximal penile stricture is soft caliber, approximately 14-16 Nepalese, multiple bulbar stricture with history of traumatic Noel catheter placement with false passage, caliber approximately 12 Nepalese. 3. Mild BPH lateral lobes. 4. Left lateral sessile papillary bladder tumor, approximately 1-1.5 cm left lateral wall, it is approximately 6-8 mm lateral to the left ureteral orifice. No other bladder tumor seen. INDICATIONS FOR PROCEDURE AND HISTORY: Mr. Ribeiro is a 77-year-old male with history of severe COPD, atrial fibrillation, previously on Eliquis, which has been on hold due to history of gastrointestinal bleed. I first met Mr. Rodgers on 10/02/2017 as Noel catheter was unable to be passed by ICU nurses, he was found to have urinary retention of 700-800 mL. He underwent cystoscopic guidance of a Noel catheter placement in which there was a false passage at the bulbar urethra. I was unable to do a thorough cystoscopic evaluation at that time due to traumatic Noel catheter placement. I did inform the patient that restaging cystoscopy would be warranted as there is high risk of recurrent stricture, moreover bladder cannot be completely surveyed. He underwent local cystoscopy which demonstrated bulbar stricture, penile bulb strictures, I was able to access the bladder and we did find an incidental left lateral 1-1.5 cm sessile bladder tumor consistent with TCC. I informed the patient regarding transurethral resection of bladder tumor, DVIU. He has been cleared by Cardiology, Dr. Harrison, and cleared by Dr. Sandoval in which spinal anesthesia is preferred. Risks and complications of the procedure was reviewed with him in detail including, but not limited to, bleeding, pain, infection, bladder or urethral injury, stricture formation, recurrent sepsis, PE, DVT, perioperative morbidity and mortality. All questions were answered to his satisfaction and he desired to proceed without reservation. DESCRIPTION OF THE PROCEDURE: After an informed consent is signed, the patient is taken to the operating room, placed in a dorsal lithotomy position with the genital area prepped and draped in the usual surgical sterile fashion. His meatal caliber appeared to be somewhat small, I did dilate with Matty sounds. It calibrated to approximately 16 Nepalese. We subsequently dilated to 30 Nepalese with ease. A 21-Nepalese cystoscope was passed. At the level of the proximal penile urethra, there was a stricture approximately 14-16 Nepalese caliber. We passed a 0.35 Super Stiff wire to the level of the bladder. With wire in place, we passed the cystoscope gently along the wire in which there were multiple bulbar stricture, small in caliber, approximately 12 Nepalese. The wire was to be confirmed in the bladder and the strictures were well away from the sphincter. Therefore, I did perform a direct vision internal urethrotomy with a cold knife at 12:00. The scope was passed with the visual obturator to minimize trauma. With the bulbous in the proximal penile urethral stricture released, we then subsequently passed a 26-Nepalese resectoscope. Prior to performing the placement of resectoscope, I did perform a cystoscopy with a 30 and a 70 degree lens which demonstrated solitary left lateral bladder tumor, left lateral wall, approximately 6-8 mm lateral to the left UO. Clear efflux was noted bilaterally. We did pass a resectoscope under direct visualization with the visual obturator. As the patient is morbidly obese with a tight suspensory ligament, it was very challenging to pass the resectoscope to the level of the bladder and engaged the left lateral tumor. Using a gyrus bipolar loop, we did resect his bladder tumor complete. The UO was kept out of harm's way. We obtained superficial, then subsequent deep specimen. The very lateral aspect of the tumor was very difficult to engage due to his body habitus as the scope was very difficult to engage the tumor in the left lateral aspect of it. I did remove the tumor complete. To ensure that the edges of the tumor were completely fulgurated, I did transition to a cystoscope using an endoscopic Bugbee, we cauterized the edges of the tumor in the lateral aspect. Excellent hemostasis was noted. The clear efflux of urine was noted in the left UO. A wire was left in situ and we passed a 20-Nepalese 30 mL three-way Noel catheter with guidewire assist to the level of the bladder. A 30 mL was insufflated. Clear urine output was returned and CBI port is plugged and attached to gravity leg bag. He is discharged with ciprofloxacin for 7 days, Colace p.r.n., Myrbetriq for 6 days, Winston 5/325 #50. He is to return to clinic in 1 week to review pathology and catheter removal. LORA
--- NOTE | 2018-01-05 12:26 | RAD ---
KUB: Date: 01/05/18 HISTORY: Cystogram intraoperative film. FINDINGS: This film shows a wire which is seen coiled in the bladder region of the pelvis. IMPRESSION: Intraoperative films showing which appears to be within the bladder. POS: CLARIBEL
[2018-01-05] MEDS ORDERED: PROPOFOL 200 MG/20 ML VIAL ONE (15:28)
== END 2018-01-05 14:20 | disposition home or self-care (01) ==
LOC: SDC 07:05
PROVIDERS: ATTEND Urology
PROC: 0T7D8ZZ Dilation of Urethra, Via Natural or Artificial Opening Endoscopic (ICD-10-PCS; principal; 2018-01-05)
PROC: 0TBB8ZZ Excision of Bladder, Via Natural or Artificial Opening Endoscopic (ICD-10-PCS; 2018-01-05)
DX: C67.2 Malignant neoplasm of lateral wall of bladder (principal); N36.5 Urethral false passage; N35.9 Urethral stricture, unspecified; J44.9 Chronic obstructive pulmonary disease, unspecified; I48.91 Unspecified atrial fibrillation; I13.10 Hypertensive heart and chronic kidney disease without heart failure, with stage 1 through stage 4 chronic kidney disease, or unspecified chronic kidney disease; N18.9 Chronic kidney disease, unspecified; G47.33 Obstructive sleep apnea (adult) (pediatric); E66.01 Morbid (severe) obesity due to excess calories; I87.2 Venous insufficiency (chronic) (peripheral); Z87.891 Personal history of nicotine dependence; Z79.82 Long term (current) use of aspirin; Z79.899 Other long term (current) drug therapy; Z79.2 Long term (current) use of antibiotics; Z79.01 Long term (current) use of anticoagulants
CPT/HCPCS: 52234; 52276; 74018; 88305; C1758; C1769; J1956; J2001; J2704; J3010; J3490; Q9961

== ENCOUNTER 2018-02-14 08:32 | Outpatient (CLI) | payer MEDICARE, OTHER | END 2018-02-14 08:33 | disposition home or self-care (01) | LOC: BICRAD 08:32 | PROVIDERS: ATTEND Family Medicine | DX: M25.531 Pain in right wrist (principal); M25.431 Effusion, right wrist; S63.091A Other subluxation of right wrist and hand, initial encounter; M79.89 Other specified soft tissue disorders; M25.331 Other instability, right wrist ==

== ENCOUNTER 2018-08-03 06:12 | Outpatient (CLI) | payer MEDICARE, OTHER ==
[2018-08-03 09:26] LABS: #Eosinphils 0.1 thou/uL (0.0-0.7); #Lymphocytes 1.5 thou/uL (1.20-3.40); #Monocytes 0.7 thou/uL (0.11-0.59); #Neutrophils 5.6 thou/uL (1.40-6.50); %Basophils 0.4 % (0.0-1.0); %Eosinophils 1.2 % (0.0-10.0); %Lymphocytes 19.1 % (21.0-51.0); %Neutrophils 70.3 % (42.0-75.0); Hemoglobin 10.6 g/dL (14.0-18.0); Mean Corpuscular HGB CONC 31.1 g/dL (32.0-36.0); Mean Corpuscular Hemoglobin 24.3 pg (27.0-31.0); Mean Corpuscular Volume 78.3 fL (78.0-98.0); Mean Platelet Volume 8.1 fL (7.4-10.4); Platelet Count 201 thou/uL (130-400); RBC Distribution Width 17.7 % (11.5-14.5); Red Blood Cell (RBC) Count 4.38 mill/uL (4.70-6.10); White Blood Cell (WBC) Count 7.9 thou/uL (4.8-10.8)
[2018-08-03 09:33] LABS: Bilirubin Negative (Negative); Blood, Urine Negative (Negative); Clarity CLEAR (Clear); Glucose, Urine (Dipstick) Negative (Negative); Leukocyte Negative (Negative); Nitrite Negative (Negative); Protein, Urine (Dipstick) Negative (Neg-Trace); Specific Gravity, Urine 1.008 (1.002-1.036); Urobilinogen 0.2 mg/dL (0.2-1.0)
[2018-08-03 09:36] LABS: Bacteria/HPF None Seen HPF (None Seen); Hyaline Casts/LPF 0-3 HYALINE CAST LPF (0-3 Hyaline); Pathc Cast-AUWi Flag 0.14 (0-2.49); Prothrombin Time 13.1 SEC (12.0-14.7); RBC/HPF 0-3 HPF (0-3); Squamous Epithelial None Seen HPF (0-3); WBC/HPF None Seen HPF (0-3)
[2018-08-03 09:37] LABS: PTT 36.6 SEC (22.9-36.1)
[2018-08-03 09:44] LABS: Anion Gap 13 mmol/L (10-20); BUN (Urea Nitrogen) 21 mg/dL (8.4-25.7); Calc. Creatinine Clearance 0 mL/min (70-130); Carbon Dioxide 27 mmol/L (23-31); Chloride 103 mmol/L (98-107); Estimated GFR-MDRD 55; Glucose 100 mg/dL (83-110); Potassium 4.1 mmol/L (3.5-5.1); Sodium 139 mmol/L (136-145)
== END 2018-08-03 06:13 | disposition home or self-care (01) ==
LOC: LABBT 06:12
PROVIDERS: ATTEND Urology
DX: Z01.818 Encounter for other preprocedural examination (principal); C67.2 Malignant neoplasm of lateral wall of bladder; N40.0 Benign prostatic hyperplasia without lower urinary tract symptoms; N18.9 Chronic kidney disease, unspecified; N35.919 Unspecified urethral stricture, male, unspecified site; Z87.448 Personal history of other diseases of urinary system
CPT/HCPCS: 80048; 81001; 85025; 85610; 85730; 86850; 86900; 86901; 87086; 93005; 93010

== ENCOUNTER 2018-08-08 08:22 | Day surgery (SDC) | payer MEDICARE, OTHER ==
[2018-08-03 08:45] VITALS: BMI 43.0
[2018-08-08] MEDS ORDERED: Levofloxacin 500 mg/D5W 100 ml Premix Bag ONE (09:53)
[2018-08-08] MEDS ORDERED: Oxybutynin 5 MG TAB ONE (13:24)
[2018-08-08] MEDS ORDERED: Phenazopyridine HCl 97.5 MG TABLET ONE (13:24)
[2018-08-08] MEDS ORDERED: PROPOFOL 200 MG/20 ML VIAL ONE (14:52)
--- NOTE | 2018-08-08 16:11 | OP ---
DATE OF PROCEDURE: 08/08/2018 PRIMARY CARE PHYSICIAN: Dr. Harrison. PREOPERATIVE DIAGNOSES: 1. A 77-year-old male with history of severe chronic obstructive pulmonary disease, pathologic low-grade transitional cell carcinoma, noninvasive, status post transurethral resection of bladder tumor in December 2017. 2. History of false passage traumatic Noel catheter placement, history of urethral stricture. 3. History of BPH, on Flomax. POSTOPERATIVE DIAGNOSES: 1. A 77-year-old male with history of severe chronic obstructive pulmonary disease, pathologic low-grade transitional cell carcinoma, noninvasive, status post transurethral resection of bladder tumor in December 2017. 2. History of false passage traumatic Noel catheter placement, history of urethral stricture. 3. History of BPH, on Flomax. PROCEDURES PERFORMED: Cystoscopy, urethral stricture dilatation, meatal calibration and dilatation transurethral fulguration of left lateral bladder lesion. ANESTHESIA: Spinal. ESTIMATED BLOOD LOSS: Minimal. COMPLICATIONS: None apparent. SPECIMEN: None. DRAINS: A 22-Azerbaijani three-way Noel catheter with 30 mL insufflated with CBI plugged to leg bag. INDICATIONS FOR PROCEDURE AND HISTORY: Mr. Rodgers is a pleasant 77-year-old morbidly obese male with history of severe COPD and atrial fibrillation, previously on Eliquis. He is only on baby aspirin at this time. He is currently in normal sinus rhythm. The patient was previously admitted for GI bleed, I had seen the patient as there were false passage and difficulty Noel catheter placement. Restaging cystoscopy demonstrated occult bladder tumor. He underwent cysto, TURBT, diagnosed with low-grade superficial TCC of the bladder. He has had false passages requiring cystoscopic guidance on initial consultation when I met him in-house. He underwent transurethral resection of bladder tumor and underwent surveillance cystoscopy recently. There was a nonspecific left lateral bladder lesion surface area approximately 1 cm lateral to the previous resection site, which is lateral to the left ureteral orifice. Due to the patient's morbid obesity, he presents today for exam under anesthesia with spinal due to severe COPD. Risks and complications and indications were reviewed with him in detail including, but not limited to, bleeding, pain, infection, injury to adjacent organs, urosepsis, and all questions were answered to his satisfaction. He desired to proceed. DESCRIPTION OF PROCEDURE: After an informed consent was signed, the patient was taken to the operating room, placed in the dorsal lithotomy position with the genital area prepped and draped in the usual surgical sterile fashion. A 21- Azerbaijani cystoscope was utilized for cystoscopy, which demonstrated again multiple urethral stricture located in the proximal penile, bulbar caliber approximately 14- to 16-Azerbaijani. I was able to bypass the strictures atraumatically with the rigid cystoscope. Prostatic urethra demonstrated mild BPH component with high-median bar. It was somewhat challenging to pass the scope to the bladder due to patient's morbid obesity and suspensory ligament. The bladder was entered atraumatically. Using a 30 and 70-degree lens, I performed a cystoscopy. The UOs were identified in normal orthotopic position with clear efflux of urine. The previous resection site was noted just lateral to the left UO. Just lateral to this, there was a nonspecific inflammatory area, possible early papillary current surface area approximately 1 cm. This area was very difficult to engage with a rigid cystoscope and a resectoscope. Given that the area was very difficult to engage, decision was made to fulgurate the lesion. Suspicion was low, however, due to possible recurrence, I fulgurated the area. We passed a 26-Azerbaijani resectoscope with a visual obturator. We gently passed a resectoscope with a visual obturator passively dilating his strictures uneventfully. Again, noted was that the left lateral area was very difficult to engage due to suspensory ligament in the angle. Using a Gyrus bipolar loop, we fulgurated the lesion to keep the left UO out of harm's way. At the end of the procedure, I did not see any further surface area of concern. Of note, the surface area was only 1 cm. That if any other lesions were warrant treating, we re-staged his urethral stricture, which appeared to be nicely dilated passively. A 22-Azerbaijani catheter was able to be passed without difficulty. A 30 mL insufflated and leg bag attached. He will follow up with me next Wednesday for catheter removal. I will schedule him for restaging cystoscopy under local in 3 month interval. He is to continue his Flomax. Job ID: [id number] [facility]
== END 2018-08-08 15:35 | disposition home or self-care (01) ==
LOC: SDC 08:22
PROVIDERS: ATTEND Urology
PROC: 0T5B8ZZ Destruction of Bladder, Via Natural or Artificial Opening Endoscopic (ICD-10-PCS; principal; 2018-08-08)
PROC: 0T7D8ZZ Dilation of Urethra, Via Natural or Artificial Opening Endoscopic (ICD-10-PCS; 2018-08-08)
DX: N32.89 Other specified disorders of bladder (principal); N35.912 Unspecified bulbous urethral stricture, male; N40.0 Benign prostatic hyperplasia without lower urinary tract symptoms; J44.9 Chronic obstructive pulmonary disease, unspecified; I48.91 Unspecified atrial fibrillation; G47.33 Obstructive sleep apnea (adult) (pediatric); I12.9 Hypertensive chronic kidney disease with stage 1 through stage 4 chronic kidney disease, or unspecified chronic kidney disease; N18.9 Chronic kidney disease, unspecified; E66.01 Morbid (severe) obesity due to excess calories; Z68.41 Body mass index [BMI] 40.0-44.9, adult; Z87.891 Personal history of nicotine dependence; Z85.51 Personal history of malignant neoplasm of bladder; Z79.82 Long term (current) use of aspirin; Z79.899 Other long term (current) drug therapy
CPT/HCPCS: J1956; J2704

== ENCOUNTER 2019-08-21 12:15 | Inpatient (IN) | payer MEDICARE, OTHER ==
[2019-08-21] MEDS ORDERED: Furosemide 40 MG/4 ML VIAL ONE (13:05)
--- NOTE | 2019-08-21 13:06 | RAD ---
EXAM: CHEST ONE VIEW HISTORY: Retention of fluid. Difficulty breathing when moving around. COMPARISON: 12/29/2017 FINDINGS: There is evidence of elevation the right hemidiaphragm on the prior exam. However, there is now incre ased pleural and parenchymal changes at the right lung base obscuring the right cardiac border. Findings are likely related to small right pleural effusion and atelectasis superimposed on elevated right hemidiaphragm. The left lung is clear. Pulmonary vasculature does appear mildly increased. No other interval change. IMPRESSION: 1. Right pleural effusion and associated atelectasis superimposed on elevated right hemidiaphragm. 2. Enlargement of the cardiac silhouette; although, the right cardiac border is not visualized. There is mild pulmonary vascular congestion present. Correlation for mild CHF is recommended. 3. Continued follow-up is recommended.
[2019-08-21 13:29] LABS: ALT (SGPT) 22 U/L (8-55); AST (SGOT) 18 U/L (5-34); Alkaline Phosphatase 74 U/L (40-110); Anion Gap 16 mmol/L (10-20); BUN (Urea Nitrogen) 25 mg/dL (8.4-25.7); Bilirubin, Total 2.2 mg/dL (0.2-1.2); Calc. Creatinine Clearance 0 mL/min (70-130); Calcium 8.6 mg/dL (7.8-10.44); Carbon Dioxide 28 mmol/L (23-31); Chloride 98 mmol/L (98-107); Estimated GFR-MDRD 48; Globulin 2.6 g/dL (2.4-3.5); Glucose 118 mg/dL (83-110); Potassium 4.1 mmol/L (3.5-5.1); Protein, Total 6.6 g/dL (5.8-8.1); Sodium 138 mmol/L (136-145)
[2019-08-21 14:13] LABS: #Lymphocytes 0.9 thou/uL (1.20-3.40); #Monocytes 0.8 thou/uL (0.11-0.59); #Neutrophils 5.8 thou/uL (1.40-6.50); %Basophils 0.2 % (0.0-1.0); %Eosinophils 0.5 % (0.0-10.0); %Lymphocytes 12.2 % (21.0-51.0); %Neutrophils 77.2 % (42.0-75.0); Hemoglobin 9.9 g/dL (14.0-18.0); Mean Corpuscular HGB CONC 29.4 g/dL (32.0-36.0); Mean Corpuscular Hemoglobin 22.2 pg (27.0-31.0); Mean Corpuscular Volume 75.4 fL (78.0-98.0); Mean Platelet Volume 9.7 fL (7.4-10.4); Platelet Count 165 thou/uL (130-400); RBC Distribution Width 18.5 % (11.5-14.5); Red Blood Cell (RBC) Count 4.47 mill/uL (4.70-6.10); White Blood Cell (WBC) Count 7.6 thou/uL (4.8-10.8)
[2019-08-21 14:35] LABS: CKMB 2.8 ng/mL (0-6.6)
--- NOTE | 2019-08-21 17:01 | PDOC.FPRHP ---
- History of Present Illness Chief Complaint: Fluid retention History of Present Illness: 78 yo male with extensive PMH presents for evaluation due to fluid retention. Patient reports over the last several weeks he has noticed progressive fluid retention to the point of scrotal and lower extremity swelling. He notes he has gained weight during this time. He denies any problems with his stream and thinks that he has had his normal urine output. He reports no fevers, chills, or abdominal pain. He notes that his PCP told him to "just watch it" referencing to his fluid level. He states he was seen by urology, Dr. Sims , today and cardiology, Dr. Harrison, and he was sent to the ED for evaluation. He has not had any increased O2 requirement and does use chronic O2 at home. His reports no other changes to his overall health. ED Course: Cardizem 10 mg IV push x2 40 mg IV Lasix Diltiazem drip 550 ml urine output after lasix injection - Allergies/Adverse Reactions Allergies Allergy/AdvReac Type Severity Reaction Status Date / Time No Known Drug Allergies Allergy Verified 08/03/18 08:42 - Home Medications Medication Instructions Recorded Confirmed Type Furosemide [Lasix] 80 mg PO DAILY 10/02/17 08/21/19 History Aspirin Chewable [Aspirin Chewable 81 mg PO QAM 10/17/17 08/21/19 History Tablet] Multivitamin/Iron/Folic Acid 1 tab PO QAM 10/17/17 08/21/19 History [Centrum Adults Tablet] Tamsulosin HCl [Flomax] 0.4 mg PO QAM 12/29/17 08/21/19 History Amlodipine [Norvasc] 10 mg PO DAILY 08/21/19 08/21/19 History Celecoxib 200 mg PO DAILY 08/21/19 08/21/19 History - History PMHx: HTN, CHF, CKD Stage III, COPD, Questionable A-fib PSHx: Right Knee replacement FHx: Non-contributory Social: Patient reports quitting smoking approximately 15 years ago, but had at least 50 pack year history. Patient denies alcohol use in the last 2 years. Patient denies illicit drug use. He lives at home with his . - Review of Systems General: reports: weight/appetite/sleep changes (weight gain). denies: fever/ chills Eyes: denies: eye pain, vision changes ENT: reports: nasal congestion. denies: rhinorrhea Respiratory: denies: cough, congestion, shortness of breath Cardiovascular: reports: edema. denies: chest pain, palpitation Gastrointestinal: denies: nausea, vomiting, diarrhea Genitourinary: denies: incontinence, dysuria Skin: denies: rashes, lesions Musculoskeletal: denies: pain, tenderness Neurological: denies: numbness, syncope Psychological: denies: anxiety, depression - Vital signs BP: 118/86 HR: 103 RR: 19 Tmax: 97.6 Pox: 91% on 4L Wt: 149 kg - Physical Exam Constitutional: NAD, awake, alert and oriented -Constitutional: Obese HEENT: normocephalic and atraumatic, PERRLA, grossly normal vision, grossly normal hearing, normal nasal mucosa -HEENT: Dentures present in mouth. Nasal cannula in place Neck: supple, trachea midline Chest: no-tender to palpation Heart: RRR, normal S1/S2, no murmurs/rubs/gallops -Heart: 2+ pitting edema to knees. Trace edema to thighs. Scrotal swelling improved per patient. Lungs: no respiratory distress, good air movement -Lungs: Bibasilar crackles present. Abdomen: soft, non-tender, bowel sounds present, no masses/distention Musculoskeletal: normal structure, normal tone Neurological: no focal deficit, CN II-XII intact, normal sensation Skin: capillary refill <2 seconds Heme/Lymphatic: no unusual bruising or bleeding, no purpura Psychiatric: normal mood and affect, good judgment and insight, intact recent and remote memory FMR H&P: Results - Labs Result Diagrams: 08/21/19 13:44 08/21/19 12:40 Lab results: WBC 7.6 thou/uL (4.8-10.8) 08/21/19 13:44 Hgb 9.9 g/dL (14.0-18.0) L 08/21/19 13:44 Hct 33.7 % (42.0-52.0) L 08/21/19 13:44 MCV 75.4 fL (78.0-98.0) L 08/21/19 13:44 Plt Count 165 thou/uL (130-400) 08/21/19 13:44 Neutrophils % 77.2 % (42.0-75.0) H 08/21/19 13:44 Sodium 138 mmol/L (136-145) 08/21/19 12:40 Potassium 4.1 mmol/L (3.5-5.1) 08/21/19 12:40 Chloride 98 mmol/L (98-107) 08/21/19 12:40 Carbon Dioxide 28 mmol/L (23-31) 08/21/19 12:40 BUN 25 mg/dL (8.4-25.7) 08/21/19 12:40 Creatinine 1.41 mg/dL (0.7-1.3) H 08/21/19 12:40 Glucose 118 mg/dL (83-110) H 08/21/19 12:40 Lactic Acid 1.0 mmol/L (0.5-2.2) 08/21/19 12:44 Calcium 8.6 mg/dL (7.8-10.44) 08/21/19 12:40 Total Bilirubin 2.2 mg/dL (0.2-1.2) H 08/21/19 12:40 AST 18 U/L (5-34) 08/21/19 12:40 ALT 22 U/L (8-55) 08/21/19 12:40 Alkaline Phosphatase 74 U/L (40-110) 08/21/19 12:40 CK-MB (CK-2) 2.8 ng/mL (0-6.6) 08/21/19 12:40 B-Natriuretic Peptide 155.7 pg/mL (0-100) H 08/21/19 12:40 Serum Total Protein 6.6 g/dL (5.8-8.1) 08/21/19 12:40 Albumin 4.0 g/dL (3.4-4.8) 08/21/19 12:40 - EKG Interpretation EK lead EKG shows, Rate (beats per minute): 132, Wide QRS tachycardia, Conduction with, complete right bundle branch block, ST segments normal, T waves normal, Prentice, left, Other findings include:, inferior infarct, age undetermined, RBBB seen on previous EKGs. - Radiology Interpretation Chest x-ray Status: report reviewed by me (1. Right pleural effusion and associated atelectasis superimposed on elevated right hemidiaphragm. 2. Enlargement of the cardiac silhouette; although, the right cardiac border is not visualized. There is mild pulmonary vascular congestion present. Correlation for mild CHF is recommended. 3. Continued follow-up is recommended.) FMR H&P: A/P - Problem List (1) Acute on chronic congestive heart failure Current Visit: Yes Status: Acute Code(s): I50.9 - HEART FAILURE, UNSPECIFIED (2) Acute and chronic respiratory failure with hypoxia Current Visit: No Status: Acute Code(s): J96.21 - ACUTE AND CHRONIC RESPIRATORY FAILURE WITH HYPOXIA (3) CKD (chronic kidney disease) Current Visit: No Status: Acute Code(s): N18.9 - CHRONIC KIDNEY DISEASE, UNSPECIFIED Qualifiers: (4) Morbid obesity Current Visit: No Status: Acute Code(s): E66.01 - MORBID (SEVERE) OBESITY DUE TO EXCESS CALORIES (5) Obesity hypoventilation syndrome Current Visit: No Status: Acute Code(s): E66.2 - MORBID (SEVERE) OBESITY WITH ALVEOLAR HYPOVENTILATION (6) Hypertension Current Visit: No Status: Chronic Code(s): I10 - ESSENTIAL (PRIMARY) HYPERTENSION Qualifiers: (7) Pleural effusion Current Visit: Yes Status: Acute Code(s): J90 - PLEURAL EFFUSION, NOT ELSEWHERE CLASSIFIED (8) Atrial fibrillation Current Visit: No Status: Acute Code(s): I48.91 - UNSPECIFIED ATRIAL FIBRILLATION Qualifiers: Atrial fibrillation type: unspecified Qualified Code(s): I48.91 - Unspecified atrial fibrillation - Plan Acute on Chronic CHF - ECHO in 2018 showed EF 50-55% - s/p IV lasix in ED with 550 ml output - Will place guadalupe for strict I&Os - Will order repeat ECHO Acute on Chronic Respiratory Failure with hypoxia - O2 supplementation as needed - CPAP at night CKD - Trend BMP - Monitor for over diuresis Pleural effusion - seen on CXR - Will repeat as diuresis occurs A-fib - Reported by ED physician and placed on diltiazem drip - Regular rate and rhythm on my examination - Consider discontinuing diltiazem - Monitor with continuos cardiac monitoring HTN - At goal, continue home regimen All other chronic conditions reviewed and medications to be restarted as appropriate. PCP: Dr. Samson CODE STATUS: FULL CODE Disposition: Stable, will admit to Telemetry services for further evaluation and treatment. Addendum - Attending - Attending Attestation Date/Time: 08/21/192134 I personally evaluated the patient and discussed the management with Dr. Esquivel I agree with the History, Examination, Assessment and Plan documented above with any addition or exceptions noted below. 78 yo WM PMH recurrent urethral strictures, CKD, MAY. Presents with 2-3 wk hx of leg swelling that has now involved his scrotum. Denies CP/SOB or palpitations. On exam scrotum swollen bilaterally, 1+ pitting edema in thighs, 2 + below the knee bilaterally. Crackles in lung base bilaterally. EKG showed A- fib w/ RVR. CXR shows right sided pleural effusion. TTE from 2018 showed normal EF with elevated pulm artery pressure at 28. inpatient for A-fib w/ RVR and CHF exacerbation. Will titrate dilt drip and consider adding PO rate control meds if needed. TTE tomorrow. If pulmonary effusion does not resolve with lasix will consider thoracentesis for diagnostic and therapeutic purposes. continue lasix. suspect >2 midnight hospitalization.
[2019-08-21 17:17] LABS: Troponin I 0.011 ng/mL (< 0.028)
[2019-08-21] MEDS ORDERED: Ondansetron ODT 4 MG TAB PO PRN (18:23)
[2019-08-21] MEDS: Furosemide 40 MG/4 ML VIAL SLOW IVP SCH (19:45)
[2019-08-22 04:29] LABS: Anion Gap 12 mmol/L (10-20); BUN (Urea Nitrogen) 24 mg/dL (8.4-25.7); Calc. Creatinine Clearance 112 mL/min (70-130); Calcium 8.3 mg/dL (7.8-10.44); Carbon Dioxide 33 mmol/L (23-31); Chloride 98 mmol/L (98-107); Estimated GFR-MDRD 55; Glucose 100 mg/dL (83-110); Potassium 4.1 mmol/L (3.5-5.1); Sodium 139 mmol/L (136-145)
[2019-08-22] MEDS: Furosemide 40 MG/4 ML VIAL SLOW IVP SCH ×3 (05:35→21:37)
--- NOTE | 2019-08-22 06:27 | PDOC.FM ---
- Subjective Subjective: Doing well this morning, no acute events overnight. States swelling is much improved, scrotal swelling almost completely resolved. LE edema improving. SOB improving. No acute events overnight. Eager for breakfast. No fever/chills, n/v , CP. - Objective MAR Reviewed: Yes Vital Signs & Weight: Vital Signs (12 hours) Temp Pulse Resp BP Pulse Ox 08/22/19 03:50 133/68 08/22/19 03:20 96.4 F L 96 20 175/89 H 94 L 08/21/19 23:37 96.7 F L 88 20 130/79 92 L 08/21/19 22:04 83 24 H 91 L 08/21/19 19:46 97.4 F L 101 H 24 H 131/72 92 L Weight Weight 166.468 kg I&O: 08/20/19 08/21/19 08/22/19 06:59 06:59 06:59 Intake Total 265 Output Total 800 Balance -535 Result Diagrams: 08/21/19 13:44 08/22/19 03:40 EKG Reviewed by me: Yes (Tele: NSR) Phys Exam - Physical Examination Constitutional: NAD (resting comfortably, speaking in short sentences with mild SOB. Obese) HEENT: moist MMs Neck: supple Respiratory: no wheezing, no rhonchi Mild rales to RLL, good aeration. Cardiovascular: no significant murmur, no rub, irregular Gastrointestinal: soft, non-tender, no distention, positive bowel sounds Musculoskeletal: edema present (1+ pitting to knees BL) Neurological: non-focal, moves all 4 limbs Psychiatric: normal affect, A&O x 3 Dx/Plan (1) Acute on chronic congestive heart failure Code(s): I50.9 - HEART FAILURE, UNSPECIFIED Status: Acute (2) CAD (coronary artery disease) Code(s): I25.10 - ATHSCL HEART DISEASE OF [place] CORONARY ARTERY W/O ANG PCTRS Status: Chronic (3) CKD (chronic kidney disease) Code(s): N18.9 - CHRONIC KIDNEY DISEASE, UNSPECIFIED Status: Chronic Qualifiers: (4) Hypertension Code(s): I10 - ESSENTIAL (PRIMARY) HYPERTENSION Status: Chronic Qualifiers: (5) MAY (obstructive sleep apnea) Code(s): G47.33 - OBSTRUCTIVE SLEEP APNEA (ADULT) (PEDIATRIC) Status: Suspected - Plan Plan: 78yo CM with h/o CHF, CKD, Afib, HTN, MAY, and morbid obesity presents in acute CHF exacerbation and acute on chronic respiratory failure with hypoxia. #Acute on Chronic CHF - ECHO in 2018 showed EF 50-55%, Afib - s/p IV lasix in ED with 550 ml output - Noel for strict I's and O's, daily weights, fluid restriction. BNP 155 - Echo This AM - CXR on admission with R pleural effusion, repeat this AM with interval improvement and still small R pleural effusion and elevated R hemidiaphragm #Acute on Chronic Respiratory Failure with hypoxia - O2 supplementation as needed, CPAP at night 2/2 MAY - cont to monitor and wean as tolerated, does not use O2 at home #CKD III - Cr 1.26, appears at baseline. Will trend BMP - Monitor will we cont diuresis #A-fib, rate-controlled - Initially on dilt gtt, transition off. Rate-controlled afib on tele monitoring - Records reviewed and previously on Coreg, would likely need to cont. Will hold at this time 2/2 acute CHF exacerbation but consider restarting as OP. #Chronic, microcytic anemia - Hb 9.9, stable, no s/s of acute blood loss - h/o iron def anemia in 2018, will obtain iron studies and consider restarting PO iron supplementation as appropriate. #HTN - continue home regimen - Hold norvasx 2/2 LE edema at this time #BPH - cont home flomax Code: Full IVF: SL Diet: HH, Lo Na, fluid restriction PCP: Dr. Samson Disposition: Stable, admitted to Telemetry for acute CHF exacerbation. Cont diuresis. Monitor resp status. Anticipate hospitalization >48hours. Addendum - Attending - Attending Attestation Date/Time: 08/22/19 1041 I personally evaluated the patient and discussed the management with . I agree with the History, Examination, Assessment and Plan documented above with any addition or exceptions noted below. Patient here for chronic uncontrolled Afib with RVR that likely precipitated fluid overload. He was rate controlled but converted back to RVR this morning. Dilt x1 and add beta douglas. Further mgmt pending how he improves with that intervention. Echo, diuresis, fluid restrict. On O2 at home. Will try to get rate controlled with beta douglas and consult cardiology if we have difficulty with that.
--- NOTE | 2019-08-22 07:39 | RAD ---
EXAM: Single view of the chest HISTORY: Heart failure COMPARISON: 08/21/2019 FINDINGS: Single view of the chest shows an enlarged but stable cardiomediastinal silhouette. There is stable elevation the right hemidiaphragm. There may be a small stable right pleural effusion. The bones are unremarkable. IMPRESSION: Cardiomegaly and small right pleural effusion.
[2019-08-22 08:36] LABS: Cardiac Risk 2.3 (Less than 4.5)
[2019-08-22] MEDS ORDERED: MULTIVITAMIN PO SCH (09:00)
[2019-08-22] MEDS ORDERED: FOLIC ACID PO SCH (09:00)
[2019-08-22] MEDS ORDERED: IRON PO SCH (09:00)
[2019-08-22] MEDS ORDERED: Carvedilol 3.125 MG TAB PO SCH ×3 (09:05→17:00)
[2019-08-22] MEDS: Aspirin Chewable 81 MG TAB PO SCH (09:24)
[2019-08-22] MEDS: Enoxaparin Sodium 40 MG/0.4 ML SYRINGE SC SCH (09:25)
[2019-08-22] MEDS: Multivit, Therapeutic 1 TAB PO SCH (09:25)
[2019-08-22] MEDS: Tamsulosin HCl 0.4 MG CAP PO SCH (09:25)
[2019-08-22] MEDS ORDERED: Diltiazem 125 MG in Sodium Chloride 0.9% 100 ML IVPB SCH (13:30)
[2019-08-22] MEDS ORDERED: Carvedilol 6.25 MG TAB PO SCH ×2 (17:00→19:45)
--- NOTE | 2019-08-22 20:54 | PDOC.BPN ---
- Brief Progress Note RN paged to inform diltiazem drip ordered earlier today was mistakenly never started. Pt's HR has been 100s, currently is 106 bpm. Discussed w/ Dr. Ibanez & Dr. Santos. Ordered additional 6.25 mg of coreg for tonight. Recommend Coreg 12.5 BID starting tomorrow morning. This order was placed.
[2019-08-23] MEDS: Furosemide 40 MG/4 ML VIAL SLOW IVP SCH (05:23)
[2019-08-23 07:06] LABS: ALT (SGPT) 21 U/L (8-55); AST (SGOT) 17 U/L (5-34); Albumin 3.6 g/dL (3.4-4.8); Alkaline Phosphatase 70 U/L (40-110); Anion Gap 11 mmol/L (10-20); BUN (Urea Nitrogen) 24 mg/dL (8.4-25.7); Bilirubin, Total 1.6 mg/dL (0.2-1.2); Calc. Creatinine Clearance 104 mL/min (70-130); Calcium 8.2 mg/dL (7.8-10.44); Carbon Dioxide 36 mmol/L (23-31); Chloride 97 mmol/L (98-107); Estimated GFR-MDRD 51; Globulin 2.6 g/dL (2.4-3.5); Glucose 108 mg/dL (83-110); Protein, Total 6.2 g/dL (5.8-8.1); Sodium 140 mmol/L (136-145)
[2019-08-23 08:06] LABS: #Eosinphils 0.1 thou/uL (0.0-0.7); #Lymphocytes 1.1 thou/uL (1.20-3.40); #Monocytes 0.8 thou/uL (0.11-0.59); #Neutrophils 5.4 thou/uL (1.40-6.50); %Basophils 0.3 % (0.0-1.0); %Eosinophils 0.9 % (0.0-10.0); %Lymphocytes 14.6 % (21.0-51.0); %Monocytes 11.2 % (0.0-10.0); Hemoglobin 9.7 g/dL (14.0-18.0); Hypochromia SLIGHT = 6-15 cells (100X) (0-5/hpf); MDiff Complete? YES; Mean Corpuscular HGB CONC 28.1 g/dL (32.0-36.0); Mean Corpuscular Volume 78.4 fL (78.0-98.0); Mean Platelet Volume 9.1 fL (7.4-10.4); Microcytosis SLIGHT = 6-15 cells (100X) (0-5/hpf); Platelet Count 152 thou/uL (130-400); Polychromasia SLIGHT = 2-3 cells (100X) (0-2/hpf); RBC Distribution Width 18.4 % (11.5-14.5); Red Blood Cell (RBC) Count 4.39 mill/uL (4.70-6.10); Stomatocytes SLIGHT = 2-5 cells (100X) (0-1/hpf); White Blood Cell (WBC) Count 7.4 thou/uL (4.8-10.8)
--- NOTE | 2019-08-23 08:30 | PDOC.FM ---
- Subjective Subjective: Doing well this morning, no acute events overnight. Denies any Cp, SOB, n/v. Tolerating PO well. No concerns or complaints for this morning. - Objective MAR Reviewed: Yes Vital Signs & Weight: Vital Signs (12 hours) Temp Pulse Resp BP Pulse Ox 08/23/19 03:20 97.7 F 91 16 122/74 93 L Weight Admit Weight 167.013 kg Weight 165.516 kg I&O: 08/22/19 08/23/19 08/24/19 06:59 06:59 06:59 Intake Total 265 865 Output Total 800 2350 Balance -535 1484 Result Diagrams: 08/23/19 06:45 08/23/19 06:45 EKG Reviewed by me: Yes (Tele: Afib - 90s-100 overnight) Phys Exam - Physical Examination Constitutional: NAD (resting comfortably on CPAP. obese.) HEENT: moist MMs Neck: supple Respiratory: no wheezing, no rales, no rhonchi, clear to auscultation bilateral Difficult exam 2/2 body habitus Cardiovascular: no significant murmur, no rub, irregular Faint heart sounds 2/2 body habitus Gastrointestinal: soft, non-tender, no distention, positive bowel sounds Musculoskeletal: edema present (1+ to knees and 2+ to ankles, improved from previous days exam) Neurological: non-focal, moves all 4 limbs Psychiatric: normal affect, A&O x 3 Skin: no rash Dx/Plan (1) Acute on chronic congestive heart failure Code(s): I50.9 - HEART FAILURE, UNSPECIFIED Status: Acute (2) CAD (coronary artery disease) Code(s): I25.10 - ATHSCL HEART DISEASE OF [place] CORONARY ARTERY W/O ANG PCTRS Status: Chronic (3) CKD (chronic kidney disease) Code(s): N18.9 - CHRONIC KIDNEY DISEASE, UNSPECIFIED Status: Chronic Qualifiers: (4) Hypertension Code(s): I10 - ESSENTIAL (PRIMARY) HYPERTENSION Status: Chronic Qualifiers: (5) MAY (obstructive sleep apnea) Code(s): G47.33 - OBSTRUCTIVE SLEEP APNEA (ADULT) (PEDIATRIC) Status: Suspected - Plan Plan: 78yo CM with h/o CHF, CKD, Afib, HTN, MAY, and morbid obesity presents in acute CHF exacerbation and acute on chronic respiratory failure with hypoxia. #Acute on Chronic HFrEF - ECHO in 2018 showed EF 50-55%, Afib. repeat Echo demonstrated EF 40-45%, Afib. - Diuresing well, O 2350. Will D/c guadalupe and monitor strict I's/O's and UOP with daily weights. - BNP 155 at admission. - Will transition back to home lasix of 80mg daily tomorrow - On BB, add lisinopril 2.5mg, monitor BP and renal function closely. - CXR on admission with R pleural effusion, repeat with interval improvement and still small R pleural effusion and elevated R hemidiaphragm #Acute on Chronic Respiratory Failure with hypoxia - O2 supplementation as needed, CPAP at night 2/2 MAY - Uses 2L at home on further questioning, satting mid to low 90s on 2L, cont to monitor. #Hyperbilirubinemia - TB 2.2 -> 1.6 - Remainder of LFTs WNL, no RUQ pain or h/o liver disease. Will cont to monitor #CKD III - Cr 1.26 -> 1.35, appears at baseline. Will trend BMP - Monitor as we cont diuresis #A-fib, rate-controlled - Initially on dilt gtt, transition off. Rate-controlled afib on tele monitoring this AM with increase Coreg dose to 12.5mg BID - CHADSVASc 4, HASBLED 3 - history of GI bleed on anticoagulation and thus has been discontinued - cont to monitor and adjust medication as needed #Chronic, microcytic anemia - Hb 9.9, stable, no s/s of acute blood loss - h/o iron def anemia in 2018, Ferritin 15, will cont oral replacement. #HTN - continue home regimen - Hold norvasx 2/2 LE edema at this time #BPH - cont home flomax Code: Full IVF: SL Diet: HH, Lo Na, fluid restriction PCP: Dr. Samson Disposition: Stable, admitted to Telemetry for acute CHF exacerbation. Cont diuresis. Monitor resp status. Transitioning to PO medications, d/c guadalupe. Anticipate hospitalization discharge in next 1-2 days pending clinical course. Addendum - Attending - Attending Attestation Date/Time: 08/23/19 8285 I personally evaluated the patient and discussed the management with . I agree with the History, Examination, Assessment and Plan documented above with any addition or exceptions noted below. Patient here with Afib RVR that is now rate controlled. Continue to escalate beta douglas therapy as needed. He is diuresing well. He is on his home regimen of supplemental O2. We will transition to PO lasix today, and continue to monitor heart rate. Therapy as needed.
[2019-08-23] MEDS: Tamsulosin HCl 0.4 MG CAP PO SCH (08:59)
[2019-08-23] MEDS: Multivit, Therapeutic 1 TAB PO SCH (09:00)
[2019-08-23] MEDS: Carvedilol 6.25 MG TAB PO SCH ×2 (09:00→18:03)
[2019-08-23] MEDS: Ferrous Sulfate 325 MG TAB PO SCH (09:00)
[2019-08-23] MEDS: Aspirin Chewable 81 MG TAB PO SCH (09:00)
[2019-08-23] MEDS: Enoxaparin Sodium 40 MG/0.4 ML SYRINGE SC SCH (09:00)
[2019-08-23] MEDS ORDERED: Lisinopril 2.5 MG TAB PO SCH (09:00)
[2019-08-23] MEDS ORDERED: Furosemide 40 MG/4 ML VIAL SLOW IVP SCH (14:00)
--- NOTE | 2019-08-23 15:40 | CON ---
DATE OF CONSULTATION: 08/23/2019 REQUEST FOR CONSULT: The patient, himself, regarding his indwelling Noel catheter. HISTORY OF PRESENT ILLNESS: Mr. Rodgers is a pleasant 78-year-old male, whom I had initially met back in September of 2017 with postvoid residual of 700 to 800 mL. He presented with similar issues as he is currently admitted with exacerbation of COPD, respiratory failure, and CHF exacerbation. A Noel catheter was placed by nursing staff in the ICU, and unable to pass. I did perform a bedside cystoscopy at that time, demonstrating a urethral stricture, dilated at the bedside. Subsequently, unfortunately, I diagnosed him with bladder cancer and he has been in the admission. He is followed by Dr. Harrison, Dr. Sandoval for severe COPD. He was previously on anticoagulation, however, due to recurrent GI bleed, Eliquis had been discontinued. He is deemed high risk for bleeding, fall. Therefore, anticoagulation was not advised. His last cystoscopy with me for surveillance of his bladder cancer was back in May 2019, with no evidence of bladder tumor recurrence. He does have multi-annular penile bulbar stricture, however, I am able to scope and pass catheter without significant issues. He called my office on August 21 and requested to be seen emergently as he was concerned regarding diffuse body swelling, urinary retention. Upon examination, he appeared to be in gross fluid overload, CHF, and decompensation with significantly edematous bilateral lower extremity edema. I did scope him in the office, which I was able to scope without significant issues with no recurrence of bladder tumor. A 16-[place] straight cath was able to be passed without significant issues. I had informed him that there is no need for indwelling Noel catheter if he is admitted for CHF exacerbation. I did reach out to Dr. Harrison, as he had significant concerns regarding his cardiac comorbidities. He was transitioned to the emergency room per Dr. Harrison' recommendation. Chart reviewed , in-house progress reviewed. He has had an indwelling Noel catheter since admission. Noel catheter was ordered to be removed by Primary Service. However, the patient requested for me to clear him to remove his Noel catheter. PAST MEDICAL HISTORY: 1. Severe atrial fibrillation, Dr. Harrison. 2. Chronic diastolic dysfunction. 3. Hypertension. 4. Chronic kidney disease. 5. COPD. 6. Obstructive sleep apnea. 7. Morbid obesity. 8. Superficial low-grade bladder cancer. 9. History of urethral stricture with traumatic Noel catheter placement and false passage back in May 2019. PAST SURGICAL HISTORY: Includes right total knee replacement, in September 2017, bedside cystoscopy 16[place] [employer] Noel catheter over guidewire, which false passage noted in the bulbar urethra. In December 2017, cysto, meatal calibration, urethral dilatation, TURBT. He has subsequently undergone surveillance cystoscopy in my office last of which was performed in May 2019 for surveillance, emergently recently August 21, 2019 with no recurrence of bladder tumor. FAMILY HISTORY: Unknown. SOCIAL HISTORY: Former smoker, quit in 2008. ALLERGIES: NO KNOWN DRUG ALLERGIES. REVIEW OF SYSTEMS: Ten-point review of systems as above, otherwise noncontributory. PHYSICAL EXAMINATION: VITAL SIGNS: Stable. He is afebrile. I's and O's, negative 1.4 L. GENERAL: The patient appears fatigued, decompensated, however improved from when I saw him a few days ago in my office. HEENT: Grossly unremarkable. HEART: Irregular. LUNGS: Clear. However, very distant sounds. ABDOMEN: Morbidly obese, protuberant. Generalized anasarca, edema noted consistent with CHF. Pitting edema to the level of his hips is appreciated. GENITOURINARY: Noel catheter draining concentrated yellow urine. There is minimal scrotal edema that is not of concern. EXTREMITIES: Significant bilateral lower extremity edema. PERTINENT LABORATORY DATA: White count 7, hemoglobin 9. Creatinine is 1.3. Hospital course reviewed. The patient is being diuresed aggressively, recently transitioned to p.o. Lasix. IMPRESSION AND PLAN: 1. Mr. Rodgers is a 78-year-old male, whom I had seen initially in September 2017 with similar comorbidities of congestive heart failure, chronic obstructive pulmonary disease exacerbation and had an emergent urologic consultation due to false passage. Cystoscopy demonstrated stricture, subsequently with superficial low-grade bladder tumor, status post transurethral resection of bladder tumor in remission. 2. Mild benign prostatic hyperplasia. 3. History of bulbar penile urethral stricture, which remains, however catheter able to be passed, which does not warrant treatment at this time. 4. Recent admission as above. recommendation; remove his indwelling Noel catheter, an indwelling urethral Noel catheter is not necessary for strict I's and O's in absence of urinary retention. He has no urinary retention of concern at this time . his PVR has been minimal. He may be incontinent due to aggressive diuresis, if present diaper will suffice. He has routine appointment with me for surveillance cystoscopy. will sign off. Call if questions or concerns. Job ID: [id number] [id number]
[2019-08-24 05:18] LABS: ALT (SGPT) 23 U/L (8-55); AST (SGOT) 18 U/L (5-34); Albumin 3.7 g/dL (3.4-4.8); Alkaline Phosphatase 68 U/L (40-110); Anion Gap 10 mmol/L (10-20); BUN (Urea Nitrogen) 32 mg/dL (8.4-25.7); Bilirubin, Direct 0.8 mg/dL (0.1-0.3); Bilirubin, Total 1.7 mg/dL (0.2-1.2); Bilirubin, Total 1.8 mg/dL (0.2-1.2); Calc. Creatinine Clearance 98 mL/min (70-130); Calcium 8.4 mg/dL (7.8-10.44); Carbon Dioxide 37 mmol/L (23-31); Chloride 95 mmol/L (98-107); Estimated GFR-MDRD 48; Globulin 2.3 g/dL (2.4-3.5); Glucose 104 mg/dL (83-110); Potassium 4.3 mmol/L (3.5-5.1); Sodium 138 mmol/L (136-145)
[2019-08-24] MEDS ORDERED: Furosemide 80 MG TAB PO SCH (07:30)
[2019-08-24] MEDS: Aspirin Chewable 81 MG TAB PO SCH (08:42)
[2019-08-24] MEDS: Enoxaparin Sodium 40 MG/0.4 ML SYRINGE SC SCH (08:42)
[2019-08-24] MEDS: Tamsulosin HCl 0.4 MG CAP PO SCH (08:42)
[2019-08-24] MEDS: Ferrous Sulfate 325 MG TAB PO SCH (08:42)
[2019-08-24] MEDS: Carvedilol 6.25 MG TAB PO SCH ×2 (08:42→16:03)
[2019-08-24] MEDS: Multivit, Therapeutic 1 TAB PO SCH (08:42)
--- NOTE | 2019-08-24 08:48 | PDOC.FM ---
- Subjective Subjective: Did not have a great night overnight per pt and at bedside. More agitated and unable to get good nights rest. Increased head/nasal congestion, SOB. No fever/chills, CP, n/v. Tolerating PO well. LE edema improved per pt. Noel removed yesterday and voiding well. Constipated, has not had BM in 3-4 days. - Objective MAR Reviewed: Yes Vital Signs & Weight: Vital Signs (12 hours) Temp Pulse Resp BP BP Pulse Ox 08/24/19 07:45 97.9 F 100 22 H 144/92 H 92 L 08/24/19 02:55 98.3 F 88 20 103/56 L 92 L 08/24/19 01:58 87 28 H Weight Admit Weight 167.013 kg Weight 163.928 kg I&O: 08/23/19 08/24/19 08/25/19 06:59 06:59 06:59 Intake Total 865 960 Output Total 2350 1800 Balance -1485 -840 Result Diagrams: 08/23/19 06:45 08/24/19 04:25 EKG Reviewed by me: Yes (Tele: rate-controlled Afib 80s-90s) Phys Exam - Physical Examination Constitutional: NAD (speaking in 2 word sentences, more sob, coughing) HEENT: moist MMs Neck: supple Respiratory: no rales, no rhonchi Course breath sounds throughout, appears upper airway in nature Cardiovascular: no significant murmur, no rub, irregular Gastrointestinal: soft, non-tender, no distention, positive bowel sounds Musculoskeletal: edema present (1+ to knees BL, stable, 2+ to ankles. Similar to previous) Neurological: non-focal, moves all 4 limbs Deviation from normal: More agittated this AM, but still polite Dx/Plan (1) Acute on chronic congestive heart failure Code(s): I50.9 - HEART FAILURE, UNSPECIFIED Status: Acute (2) CAD (coronary artery disease) Code(s): I25.10 - ATHSCL HEART DISEASE OF [place] CORONARY ARTERY W/O ANG PCTRS Status: Chronic (3) CKD (chronic kidney disease) Code(s): N18.9 - CHRONIC KIDNEY DISEASE, UNSPECIFIED Status: Chronic Qualifiers: (4) Hypertension Code(s): I10 - ESSENTIAL (PRIMARY) HYPERTENSION Status: Chronic Qualifiers: (5) MAY (obstructive sleep apnea) Code(s): G47.33 - OBSTRUCTIVE SLEEP APNEA (ADULT) (PEDIATRIC) Status: Suspected - Plan Plan: 78yo CM with h/o CHF, CKD, Afib, HTN, MAY, and morbid obesity presents in acute CHF exacerbation and acute on chronic respiratory failure with hypoxia. #Acute on Chronic HFrEF - ECHO in 2018 showed EF 50-55%, Afib. repeat Echo demonstrated EF 40-45%, Afib. - Diuresing well, O 1800. Noel d/c and voiding well. Strict I's/O's and UOP with daily weights. - BNP 155 at admission. - Elevate legs while in bed, encourage PT and ambulating. - Transition back to home lasix of 80mg daily PO this AM - On BB, holding lisinopril 2/2 renal function but would benefit as OP if tolerates, cont to monitor - CXR on admission with R pleural effusion, repeat with interval improvement and still small R pleural effusion and elevated R hemidiaphragm - Exam worsening this AM, appears upper airway congestion but will repeat CXR to further eval. #Acute on Chronic Respiratory Failure with hypoxia - O2 supplementation as needed, CPAP at night 2/2 MAY - Uses 2L at home, satting mid to low 90s on 2L, cont to monitor. - Increased SOB this AM, repeat CXR, consider ABG pending CXR and monitor closely #Hyperbilirubinemia - TB 2.2 -> 1.6. Likely hepatic congestion. - Remainder of LFTs WNL, no RUQ pain or h/o liver disease. Will cont to monitor #CKD III - Cr 1.26 -> 1.35 -> 1.42, slightly worsening. Trend BMP - Monitor as we cont diuresis #A-fib, rate-controlled - Initially on dilt gtt, transition off. Rate-controlled afib on tele monitoring this AM with increase Coreg dose to 12.5mg BID - CHADSVASc 4, HASBLED 3 - history of GI bleed on anticoagulation and thus has been discontinued - cont to monitor and adjust medication as needed #Chronic, microcytic anemia - Hb 9.9, stable, no s/s of acute blood loss - h/o iron def anemia in 2018, Ferritin 15, will cont oral replacement. #HTN - continue home regimen - Hold norvasx 2/2 LE edema at this time, holding lisinopril 2/2 renal function #BPH - cont home flomax Code: Full IVF: SL Diet: HH, Lo Na, fluid restriction PCP: Dr. Samson Disposition: Stable, admitted to Telemetry for acute CHF exacerbation. Cont diuresis. Monitor resp status. Transitioning to PO medications. Repeat CXR this AM, monitor resp status closely. Anticipate hospitalization discharge in next 1- 2 days pending clinical course. Addendum - Attending - Attending Attestation Date/Time: 08/24/19 6112 I personally evaluated the patient and discussed the management with . I agree with the History, Examination, Assessment and Plan documented above with any addition or exceptions noted below. Patient with increased O2 requirement overnight. CXR obtained and apppears more volume overloaded despite decent diuresis yesterday. ABG shows CO2 retention and acidemia. He is now being transferred to the [facility] for Bipap therapy. Will consult Pulm and Cardiology. His diuresis has been escalated this morning, will need to monitor renal function due to already overnight bump up in creatinine.
[2019-08-24] MEDS ORDERED: Polyethylene Glycol 3350 17 GM Packet PO SCH (09:00)
--- NOTE | 2019-08-24 10:04 | RAD ---
PORTABLE CHEST ONE VIEW: HISTORY: Congestive heart failure. Worsening rales on exam. COMPARISON: 08/22/2019 FINDINGS: There is decreased inspiratory effort with cardiomegaly and moderate right pleural effusion and right lower lobe parenchymal changes. The left chest is stable. IMPRESSION: Stable appearing chest with cardiomegaly, vascular congestion, right pleural changes and minimal pare nchymal changes. Continued followup for clearing or stability, POS: OFF
[2019-08-24 10:36] LABS: Actual Bicarbonate (HCO3a) 37.6 mEq/L (22-28); Base Excess (BEa) 8.8 mEq/L (-2.0 to +3.0); Calcium, Ionized 1.13 mmol/L (1.12-1.30); Carboxyhemoglobin (COHb) 1.3 gm% (0.0-3.0); Hemoglobin (Hb) 10.8 g/dL (14.0-18.0); Potassium - ABG Lab 4.36 mmol/L (3.70-5.30)
[2019-08-24 10:37] LABS: Puncture Site LRA
[2019-08-24] MEDS ORDERED: Furosemide 40 MG/4 ML VIAL SLOW IVP SCH (14:00)
[2019-08-24] MEDS ORDERED: DOBUTamine 500 mg/250 ml 250 ML IVPB SCH (16:45)
--- NOTE | 2019-08-24 21:50 | CON ---
DATE OF CONSULTATION: HISTORY OF PRESENT ILLNESS: Mr. Rodgers is a very pleasant 78-year-old male, followed in my clinic for COPD and asthma as well as sleep apnea. tells me that they have been fighting gradually increasing weight and gradually increasing shortness of breath for weeks. He subsequently was admitted to the hospital for diuresis. He subsequently was transferred to the intermediate care unit and I was consulted. PAST MEDICAL HISTORY: Remarkable for; 1. Hypertension. 2. Congestive heart failure. 3. Chronic kidney disease. 4. COPD and asthma. 5. ?History of atrial fibrillation. 6. History of knee replacement. 7. History of life-threatening obesity with a weight of 361 pounds this admission with a BMI of 49. 8. Status post echocardiogram this admission showing ejection fraction of 40% to 45%. FAMILY HISTORY: Negative for lung disease in early age. SOCIAL HISTORY: He is a nonsmoker and nondrinker. ALLERGIES: HE IS NOT ALLERGIC TO ANYTHING. REVIEW OF SYSTEMS: Ten points otherwise negative. PHYSICAL EXAMINATION: GENERAL: On exam, he is on BiPAP. I have asked his to go home and get his Adaptive servo-ventilator and bring it up here. VITAL SIGNS: He is afebrile. Oximetry is 96% on 4 L. Heart rate is 95, blood pressure is 120/84. HEAD AND NECK: Unremarkable. Tolerating BiPAP. LUNGS: Clear. HEART: Regular rhythm. S1, S2 are normal. ABDOMEN: Soft and nontender. EXTREMITIES: Without clubbing or cyanosis. He does have lower extremity edema. IMAGING: Chest radiograph shows atelectasis of both lung bases and finding suggestive of a right pleural effusion. IMPRESSION: 1. Congestive heart failure. 2. Obesity hypoventilation. 3. Chronic obstructive pulmonary disease. 4. Asthma. 5. Urinary retention. 6. Bladder cancer. 7. History of anticoagulation held because of gastrointestinal bleed. 8. History of atrial fibrillation. We will continue to follow the other physicians caring for him. He appears to be stable at this time. Job ID: [id number]
--- NOTE | 2019-08-24 21:51 | CON ---
DATE OF CONSULTATION: INDICATION FOR CONSULTATION: 78-year-old gentleman with CHF exacerbation. HISTORY OF PRESENT ILLNESS: This is a very unfortunate 78-year-old gentleman, who I have followed for many years and was seen by Dr. Cruz. I then spoke with her and he was advised to go to the emergency room. He was admitted to the hospital under the hospital service. I have seen him on a daily basis since being in the hospital and have watched him as he was given diuretics. However, he has not responded very well to the diuretics and this morning became more short of breath and noted that his creatinine level has also increased and he was then transferred to the [facility] and a formal consultation was requested. At this time, he has a BiPAP mask on and is looking more comfortable. However, he has severe edema. He did have an echocardiogram performed, which showed ejection fraction of 40% to 45% yesterday. Previous to that, his last echocardiogram in the office was in September of 2017, which showed ejection fraction of 50% to 55%. He did have right ventricular enlargement, as well as moderate to severe left atrial dilatation. He has had a stress test in 2018, which was normal. He has had history of underlying COPD and this is likely a combination of his COPD, as well as CHF exacerbation. He has had no clear indication that he has diastolic dysfunction, but I suspect he does based on the dilatation of the left atrium as well as some mild right atrial dilatation and some mitral valve regurgitation. At this time, since he is not responding to the diuretics, we will change some of his diuretics and possibly put him on a low dose of dobutamine short term to see whether or not this will increase his urinary output. He does have a history also of bladder cancer and did have some obstruction earlier, but this seems to have resolved over the last several weeks or months once he has been seen by Dr. Cruz. He says that he has no problem urinating at this time. He also has developed over time atrial fibrillation. He has been relatively well rate controlled and has opted to continue his present management with rate control. He has been placed on aspirin due to the recent diagnosis of the bladder cancer and also the high risk of falls in this gentleman. He denied any chest pain. EKG shows atrial fibrillation but no acute changes that would indicate ischemia and I believe cardiac enzymes have been negative. His BNP was only 155 on admission, which makes me feel that this may be more of a pulmonary problem than just CHF, but he does have severe edema, and we will try to at least diurese the patient somewhat. He has been somewhat noncompliant in the past but taking his medication, elevates his legs, and watching his volume and fluid intake. PAST MEDICAL HISTORY: Significant for bilateral lower extremity edema. He had lower extremity, right greater saphenous and small saphenous vein, venous reflux. He has history of bladder cancer. He wears a CPAP mask for sleep apnea, atrial fibrillation was diagnosed in September of 2017. He has history of GI bleed in 2018. He has had a right knee replacement, bladder cancer surgery was in August of 2018. FAMILY HISTORY: Noncontributory at this time. SOCIAL HISTORY: He smoked in the past, stopped about 10 years ago. No significant alcohol use. He lives at home with his . ALLERGIES: NONE. MEDICATIONS: Prior to admission included: 1. Tamsulosin 0.4 mg two capsules once a day. 2. Centrum Silver vitamins. 3. Aspirin 81 mg a day. 4. Furosemide 40 mg three times a day. REVIEW OF SYSTEMS: He denies any fevers. He did admit to weight gain. ENT: Complains of wearing a CPAP mask, but otherwise has no new findings. He has excessive sweating. CARDIOVASCULAR: He denies any chest pain. He did complain of lower extremity edema. He has shortness of breath. He has palpitations at times, which were due to the atrial fibrillation. GI: He denies any nausea, vomiting, or diarrhea. He has had no recent bleeding. Urologically, he has had no blood in the urine. He has been followed for his bladder cancer by Dr. Cruz. He has had not had any recent obstructions. MUSCULOSKELETAL: Mainly the lower extremity edema. NEUROLOGICAL: He denies any syncope or dizziness. PHYSICAL EXAMINATION: GENERAL: Reveals a morbidly obese gentleman. He is afebrile. VITAL SIGNS: Heart rate is anywhere between 84 to 100 with his atrial fibrillation. Respiratory rate is about 20, O2 saturation of 96% on the BiPAP mask at 30% oxygen. His blood pressure has ranged today from 144/92 to 109/48. HEENT: Shows the head to be normocephalic and atraumatic. He has CPAP mask in place. CHEST: Posteriorly has diffuse wheezing, anteriorly cannot hear any significant breath sounds. CARDIOVASCULAR: Heart sounds are somewhat distant, but he is morbidly obese. He has an irregularly regular rhythm. He has a systolic murmur at the apex. ABDOMEN: Shows morbid obesity with positive bowel sounds. No organomegaly or masses were appreciated. EXTREMITIES: Show significant lower extremity edema bilaterally. There was no cyanosis noted. Pulses are present, but difficult to palpate due to the edema. NEUROLOGICAL: I could not elicit any gross focal motor deficits at this time. LABORATORY DATA: Showed a WBC of 7.4, hemoglobin is 9.7, platelet count was 152. Sodium 138, potassium is 4.3, BUN is 32, and creatinine 1.42, blood sugar was 104, total bilirubin was 1.8 with direct bilirubin of 0.8. LDL was 67 and as noted above. His BNP was 157 and troponin I is negative. His TSH also was normal at 1.5. His ABGs today showed a pH of 7.3, pCO2 was 79, and PO2 was 66, and O2 saturation was 91%. IMPRESSION: 1. Probably combination of chronic obstructive pulmonary disease exacerbation, as well as congestive heart failure exacerbation somewhat diastolic in nature. He has been seen also by Dr. Sandoval. He has a CPAP mask in place. Since he has not had diuresis with the IV Lasix, I will add a low dose of dobutamine if he tolerates this based on heart rate and blood pressure. We will also change him over to Bumex. We will hold off on the beta blockers while he is getting the dobutamine and see whether or not we can get some improvement in cardiac output to relieve some of the edema. 2. History of hypertension. This is under very good control at this time. 3. Chronic obstructive pulmonary disease for which he is being seen by Dr. Sandoval. Hopefully, this will improve also when some of the volume is removed. He has sleep apnea. His will go home and get his CPAP mask rather than using it while in the hospital. He seems to do much better with that. 4. Morbid obesity. He has not followed dietary instructions or fluid intake in the past and I have advised in the office that he needs to lose weight. We will be more than happy to continue to follow the patient with you. We will see how he does with the new regimen of medications. Job ID: [id number]
--- NOTE | 2019-08-24 23:19 | ULT ---
LOWER EXTREMITY ARTERIAL EVALUATION 08/24/19 Complaints of bilateral leg pain. Right leg demonstrates diminished waveforms at all levels with the best waveform being the dorsalis p radha. Ankle-arm index is normal at 0.82 to 0.86. Left lower extremity demonstrates diminished waveforms at all levels and once again the dorsalis pedi s waveform is the best signal. Toe-brachial index is normal and ankle-arm index is 0.88. ASSESSMENT: This study suggests mild to moderate peripheral vascular disease with a suspicion of the level of christina nosis being the iliac arteries. Could be consistent with vascular claudication symptoms.
[2019-08-25 04:16] LABS: ALT (SGPT) 27 U/L (8-55); AST (SGOT) 22 U/L (5-34); Albumin 3.7 g/dL (3.4-4.8); Alkaline Phosphatase 69 U/L (40-110); BUN (Urea Nitrogen) 32 mg/dL (8.4-25.7); Calc. Creatinine Clearance 106 mL/min (70-130); Calcium 8.5 mg/dL (7.8-10.44); Estimated GFR-MDRD 53; Globulin 2.6 g/dL (2.4-3.5); Glucose 103 mg/dL (83-110); Protein, Total 6.3 g/dL (5.8-8.1)
[2019-08-25 04:26] LABS: Anion Gap 14 mmol/L (10-20); Carbon Dioxide 36 mmol/L (23-31); Chloride 94 mmol/L (98-107); Potassium 4.4 mmol/L (3.5-5.1); Sodium 140 mmol/L (136-145)
[2019-08-25] MEDS: Bumetanide 1 MG/4 ML VIAL IVP SCH ×2 (05:25→16:16)
--- NOTE | 2019-08-25 06:03 | PDOC.FM ---
- Subjective Subjective: Doing well this morning. Resting comfortably, no acute events overnight. Using CPAP overnight able to be weaned to 3L during the afternoon yesterday. - Objective MAR Reviewed: Yes Vital Signs & Weight: Vital Signs (12 hours) Temp Resp Pulse Ox 08/25/19 04:00 98.6 F 08/25/19 01:00 95 08/24/19 23:31 98.1 F 08/24/19 23:00 20 94 L 08/24/19 20:00 98.9 F 96 Weight Admit Weight 167.013 kg Weight 164.767 kg Most Recent Monitor Data Heart Rate from ECG 100 NIBP 138/92 NIBP BP-Mean 107 Respiration from ECG 19 SpO2 94 I&O: 08/23/19 08/24/19 08/25/19 06:59 06:59 06:59 Intake Total 865 960 470 Output Total 2350 1800 1050 Balance -1485 -840 -580 Result Diagrams: 08/23/19 06:45 08/25/19 03:39 Phys Exam - Physical Examination Constitutional: NAD (resting comfortably) HEENT: moist MMs Neck: supple Respiratory: no wheezing, no rhonchi (Mild), clear to auscultation bilateral Cardiovascular: RRR, no significant murmur, no rub Gastrointestinal: soft, non-tender, no distention, positive bowel sounds Musculoskeletal: edema present (2+ pitting to mid-brunner, 1+ to knees) Neurological: non-focal, moves all 4 limbs Psychiatric: normal affect Dx/Plan (1) Acute on chronic congestive heart failure Code(s): I50.9 - HEART FAILURE, UNSPECIFIED Status: Acute (2) CAD (coronary artery disease) Code(s): I25.10 - ATHSCL HEART DISEASE OF [place] CORONARY ARTERY W/O ANG PCTRS Status: Chronic (3) CKD (chronic kidney disease) Code(s): N18.9 - CHRONIC KIDNEY DISEASE, UNSPECIFIED Status: Chronic Qualifiers: (4) Hypertension Code(s): I10 - ESSENTIAL (PRIMARY) HYPERTENSION Status: Chronic Qualifiers: (5) MAY (obstructive sleep apnea) Code(s): G47.33 - OBSTRUCTIVE SLEEP APNEA (ADULT) (PEDIATRIC) Status: Suspected - Plan Plan: 78yo CM with h/o CHF, CKD, Afib, HTN, MAY, and morbid obesity presents in acute CHF exacerbation and acute on chronic respiratory failure with hypoxia. #Acute on Chronic HFrEF - ECHO in 2018 showed EF 50-55%, Afib. repeat Echo demonstrated EF 40-45%, Afib. BNP 155 at Admit. - On 08/24 was evaluated and worsening edema, SOB, ABG 7.3/79/66, CXR worsening R effusion. Placed on Bipap, transferred to [facility] - On home CPAP now, respiratory status stable and slightly improved - Cards consulted, known to Dr. Harrison, added dobuatmine, bumex, and dig. Apprec recs. - O 1050. Strict I's/O's and UOP with daily weights. - Elevate legs while in bed, encourage PT and ambulating. - Holding BB and CHETAN 2/2 dobutamine and renal function #Hypercapnic respiratory failure - Acute worsening of status on 08/24, ABG obtained, placed on BiPAP, transferred to [facility]. Improved this AM. See above. #Acute on Chronic Respiratory Failure with hypoxia, COPD - O2 supplementation as needed, CPAP at night 2/2 MAY. Uses 2L at home - See above, acute worsening on 08/24. Improved this AM - Cont home neb treatments prn - Pulm, Dr. Sandoval, consulted, apprec recs #Hyperbilirubinemia - TB 2.2 -> 1.6 -> 2.0. Likely hepatic congestion. Stable. - Remainder of LFTs WNL, no RUQ pain or h/o liver disease. Will cont to monitor #CKD III - Cr 1.26 -> 1.42 -> 1.31, stable. Cont to monitor with diuresis. #A-fib, Rhythm and rate-controlled - CHADSVASc 4, HASBLED 3 - history of GI bleed on anticoagulation and thus has been discontinued at previous admission - Now in sinus. On digoxin. Holding BB 2/2 dobutamine. Cont to monitor and adjust medications prn #Chronic, microcytic anemia - Hb 9.9, stable, no s/s of acute blood loss - h/o iron def anemia in 2018, Ferritin 15, will cont oral replacement. #HTN - continue home regimen - Hold norvasx 2/2 LE edema at this time, holding lisinopril 2/2 renal function #BPH - cont home flomax Code: Full IVF: SL Diet: HH, Lo Na, fluid restriction VTE: Lovenox PCP: Dr. Samson Disposition: Transferred to [facility] for worsening of hypoxic and hypercapnic respiratory failure 2/2 CHF and COPD exacerbation. Pulm and Cards consulted, apprec recs. Cont current mangement and monitor resp status. Cont to diurese. Addendum - Attending - Attending Attestation Date/Time: 08/25/19 0840 I personally evaluated the patient and discussed the management with . I agree with the History, Examination, Assessment and Plan documented above with any addition or exceptions noted below. Patient improved this morning. He was transferred to [facility] yesterday for hypercapnia 2/2 worsening CHF. His XR was consistent with volume overload despite adequate Lasix therapy. He has been changed to Bumex due to lasix resistance. Diuresing well and feeling better. Cardiology on board, currently on dobutamine drip to help with perfusion, renal function improved. Continue current measures. Pulm on board for BIpap mgmt.
[2019-08-25] MEDS: Aspirin Chewable 81 MG TAB PO SCH (09:20)
[2019-08-25] MEDS: Ferrous Sulfate 325 MG TAB PO SCH (09:20)
[2019-08-25] MEDS: Digoxin 0.125 MG TAB PO SCH (09:20)
[2019-08-25] MEDS: Tamsulosin HCl 0.4 MG CAP PO SCH (09:20)
[2019-08-25] MEDS: guaiFENesin ER 600 MG TAB PO SCH ×2 (09:20→20:08)
[2019-08-25] MEDS: Multivit, Therapeutic 1 TAB PO SCH (09:20)
[2019-08-25] MEDS: Enoxaparin Sodium 40 MG/0.4 ML SYRINGE SC SCH (09:20)
--- NOTE | 2019-08-25 09:50 | PDOC.CPN ---
- Subjective Date: 08/25/19 Time: 09:53 Interval history: The pt seen and examined. No overnight events. No cardiac complaints. - Objective Allergies/Adverse Reactions: Allergies Allergy/AdvReac Type Severity Reaction Status Date / Time No Known Drug Allergies Allergy Verified 08/03/18 08:42 Visit Medications: Current Medications Acetaminophen (Tylenol) 650 mg PO Q4H PRN PRN Reason: Headache/Fever/Mild Pain (1-3) Albuterol/Ipratropium (Duoneb) 3 ml NEB [id number] Aspirin (Aspirin Chewable) 81 mg PO QAM [facility] Last Admin: 08/25/19 09:20 Dose: 81 mg Bumetanide (Bumex) 1 mg IVP 0600,1400 [facility] Last Admin: 08/25/19 05:25 Dose: 1 mg Digoxin (Lanoxin) 0.125 mg PO DAILY [facility] Last Admin: 08/25/19 09:20 Dose: 0.125 mg Enoxaparin Sodium (Lovenox) 40 mg SC 0900 [facility] Last Admin: 08/25/19 09:20 Dose: 40 mg Ferrous Sulfate (Feosol) 325 mg PO QAM[facility] Last Admin: 08/25/19 09:20 Dose: 325 mg Guaifenesin (Mucinex) 1,200 mg PO Q12HR [facility] Last Admin: 08/25/19 09:20 Dose: 1,200 mg Dobutamine HCl/Dextrose (Dobutamine 500 Mg/250 Ml) 250 mls @ 12.295 mls/hr IVPB INF [facility]; Protocol Last Admin: 08/24/19 17:25 Dose: 250 mls Multivitamins (Theragran) 1 tab PO DAILY [facility] Last Admin: 08/25/19 09:20 Dose: 1 tab Ondansetron HCl (Zofran Odt) 4 mg PO Q6H PRN PRN Reason: Nausea/Vomiting Polyethylene Glycol (Miralax) 17 gm PO DAILYPRN PRN PRN Reason: Constipation Sodium Chloride (Flush - Normal Saline) 10 ml IVF Q12HR [facility] Last Admin: 08/25/19 09:21 Dose: 10 ml Sodium Chloride (Flush - Normal Saline) 10 ml IVF PRN PRN PRN Reason: Saline Flush Last Admin: 08/25/19 05:25 Dose: 10 ml Tamsulosin HCl (Flomax) 0.4 mg PO QAM [facility] Last Admin: 08/25/19 09:20 Dose: 0.4 mg Vital Signs & Weight: Vital Signs Temp Pulse Resp Pulse Ox 08/25/19 09:20 86 08/25/19 07:43 98.6 F 08/25/19 04:00 98.6 F 08/25/19 01:00 95 08/24/19 23:31 98.1 F 08/24/19 23:00 20 94 L Admit Weight 368 lb 3.2 oz Weight 363 lb 4 oz - Physical Exam General: alert & oriented x3 HEENT: mucus membranes moist Neck: supple neck Cardiac: irregularly regular Lungs: decreased breath sounds, wheezes Neuro: cranial nerve 2-12 intact Extremities: other: (3-4+ pitting BLE edema) - Labs Result Diagrams: 08/23/19 06:45 08/25/19 03:39 Troponin/CKMB CK-MB (CK-2) 2.8 ng/mL (0-6.6) 08/21/19 12:40 Troponin I 0.010 ng/mL (< 0.028) 08/21/19 19:37 - Telemetry Supraventricular conduction: atrial fibrillation - Assessment/Plan Assessment/Plan: 1. Acute on chronic combined HF - Per the pt and family, he is doing much better with Dobutamin drip; holding Coreg since he is on Dobutamin drip; not on CHETAN/ARB due to hx of CKD 2. COPD exacerbation - managed by pulmonology service 3. Chronic afib - stable HR with Digoxin; off BBlocker for now; ASA due to hx of Anemia and high risk of falls 4. HTN - stable 5. CKD stage 3 - stable 6. Sleep apnea with Cpap at HS - 7. Anemia - unchanged 8. Obese MAR reviewed * Echo on 08/22/2019 with EF 40-45% (50-55% in 09/2017) mild ERV, mild ERA, mild MR, TR, and FL Pt. seen and eval.by me.i agree with the A/P by the [employer]. He is not diuresisng , bladder scan with > 1000ml. Discussed with urology, will place guadalupe cath. will increase dobutamine if HR tolerates and also increase Bumex. If K decreases then add supplement. Chest : expiratory wheezes posteriorly, basilar rales. CV: irreg/irreg.
--- NOTE | 2019-08-25 10:07 | PRG ---
DATE OF SERVICE: 08/25/2019 SUBJECTIVE: Quintin Rodgers says he is feeling better. OBJECTIVE: VITAL SIGNS: He is afebrile. Heart rates in the 80s, blood pressure 141/72, oximetry is in low 90s. LUNGS: Distant and clear. He says he started to feel a little congested in his chest. HEART: Regular rhythm. ABDOMEN: Soft. EXTREMITIES: Still remarkable for 2 to 3+ edema. LABORATORY DATA: Sodium 140, potassium 4.4, chloride 94, bicarb 36, BUN 32, creatinine 1.31. IMPRESSION: 1. Asthma and chronic obstructive pulmonary disease, clinically stable. I have added nebulized treatments and Mucinex. 2. Congestive heart failure with volume overload. 3. Sleep apnea. 4. Morbid obesity. 5. History of bladder cancer. 6. History of gastrointestinal bleed last year. 7. Add nebulized treatments and Mucinex. Continue to follow in intermediate care unit. Continue to diurese. Job ID: [id number]
[2019-08-25] MEDS ORDERED: Bumetanide 1 MG/4 ML VIAL IVP SCH (15:15)
[2019-08-25 15:59] LABS: Bilirubin Negative (Negative); Blood, Urine Negative (Negative); Clarity Clear (Clear); Glucose, Urine (Dipstick) Normal (Negative); Leukocyte Negative Leu/uL (Negative); Nitrite Negative (Negative); Protein, Urine (Dipstick) Negative (Neg-Trace); Squamous Epithelial 0-3 HPF (0-3); Urobilinogen Normal mg/dL (Less than 2); WBC/HPF 0-3 HPF (0-3)
[2019-08-25 16:05] LABS: Bacteria/HPF None Seen HPF (None Seen)
[2019-08-25] MEDS: DOBUTamine 500 mg/250 ml 250 ML IVPB SCH ×2 (16:12→22:41)
--- NOTE | 2019-08-25 16:24 | PRG ---
DATE OF SERVICE: 08/25/2019 SUBJECTIVE: The patient's events and hospital records reviewed, called by Dr. Harrison this afternoon, as there was concern regarding PVR over 1 L. The patient complaining of urinary hesitancy, dribbling, therefore bladder scan was obtained demonstrating over 900 mL. The patient continues to be diuresed, however, suboptimal and transferred to [facility]. Records reviewed. OBJECTIVE: VITAL SIGNS: Temperature 97, pulse 113, respiratory rate 24, oxygen saturation 93% on 4 L. I's and O's; 927 in, 1250 out. He is negative 300 mL. ABDOMEN: Morbidly obese. Positive anasarca consistent with fluid overload. EXTREMITIES: Bilateral lower extremities pitting edema as previously noted. GENITOURINARY: Mild scrotal edema. Bedside procedure, 16-Japanese Noel catheter placed without significant issues, 1100 mL of postvoid residual of clear dilute urine. Catheter secured. UA C and S obtained. Creatinine is 1.31. IMPRESSION AND PLAN: 1. Mr. Rodgers is a 78-year-old male, whom I had seen initially back in September 2017 with similar circumstances of exacerbation of severe congestive heart failure, chronic obstructive pulmonary disease, fluid overloaded. He had a traumatic Noel catheter placed at that time, subsequently found to have urethral stricture treated. 2. History of mild benign prostatic hyperplasia. 3. History of bladder cancer, in remission. 4. Recent cystoscopy as an outpatient did not demonstrate obstructing urethral stricture, mild benign prostatic hyperplasia. He had no significant postvoid residual recently, therefore Noel catheter was removed 2 days ago. He was being diuresed by Primary Service and Cardiology, however, due to exacerbation and suboptimal diuresis, he was transferred to the [facility]. Due to PVR of 1100 mL, I was contacted. Noel catheter placed at bedside without significant issues. UA C and S sent. The patient needs to be monitored for postobstructive diuresis. Continue indwelling Noel catheter. He will need indwelling Noel catheter to continue for a while due to significant distention. Do not remove Noel catheter unless it is initiated by . Continue Flomax. Dr. Tellez covering me this weekend. Job ID: [id number] MTDD
[2019-08-26 04:30] LABS: ALT (SGPT) 28 U/L (8-55); AST (SGOT) 19 U/L (5-34); Albumin 3.5 g/dL (3.4-4.8); Alkaline Phosphatase 66 U/L (40-110); BUN (Urea Nitrogen) 29 mg/dL (8.4-25.7); Bilirubin, Total 2.2 mg/dL (0.2-1.2); Calc. Creatinine Clearance 112 mL/min (70-130); Calcium 8.4 mg/dL (7.8-10.44); Estimated GFR-MDRD 56; Globulin 2.2 g/dL (2.4-3.5); Glucose 96 mg/dL (83-110); Protein, Total 5.7 g/dL (5.8-8.1)
[2019-08-26 04:39] LABS: Anion Gap 13 mmol/L (10-20); Carbon Dioxide 37 mmol/L (23-31); Chloride 92 mmol/L (98-107); Sodium 138 mmol/L (136-145)
--- NOTE | 2019-08-26 05:38 | PDOC.FM ---
- Subjective Subjective: No events overnight. states pt has been tolerating his home CPAP well. Pt resting comfortably with CPAP on. Recalls events from the previous day. Pt and agree with plan for continued diuresis and respiratory monitoring and support. - Objective Vital Signs & Weight: Vital Signs (12 hours) Temp Pulse Resp Pulse Ox 08/26/19 05:11 98 23 H 98 08/26/19 04:00 98.8 F 08/26/19 00:00 98.8 F 08/25/19 20:00 96 08/25/19 19:36 98.9 F 08/25/19 19:05 97 08/25/19 19:01 113 H 20 93 L Weight Admit Weight 167.013 kg Weight 163.293 kg Most Recent Monitor Data Heart Rate from ECG 104 NIBP 150/80 NIBP BP-Mean 103 Respiration from ECG 28 SpO2 96 I&O: 08/24/19 08/25/19 08/26/19 06:59 06:59 06:59 Intake Total 960 927 650 Output Total 1800 1250 4350 Balance -972 -161 -6687 Result Diagrams: 08/23/19 06:45 08/26/19 03:52 Phys Exam - Physical Examination Constitutional: NAD Tolerating home CPAP well HEENT: PERRLA, sclera anicteric Neck: supple, full ROM Respiratory: no wheezing Diffuse rhonchi noted, difficult to ascultate 2/2 body habitus Tachycardic, no extra heart sounds auscultated Gastrointestinal: soft, non-tender Musculoskeletal: edema present (3+ pitting edema bilaterally) Neurological: non-focal, moves all 4 limbs Psychiatric: normal affect, A&O x 3 Skin: no rash, cap refill <2 seconds Dx/Plan (1) Acute on chronic congestive heart failure Code(s): I50.9 - HEART FAILURE, UNSPECIFIED Status: Acute (2) Acute respiratory failure with hypoxia and hypercapnia Code(s): J96.01 - ACUTE RESPIRATORY FAILURE WITH HYPOXIA; J96.02 - ACUTE RESPIRATORY FAILURE WITH HYPERCAPNIA Status: Acute (3) Atrial fibrillation Code(s): I48.91 - UNSPECIFIED ATRIAL FIBRILLATION Status: Acute Qualifiers: Atrial fibrillation type: unspecified Qualified Code(s): I48.91 - Unspecified atrial fibrillation (4) Morbid obesity Code(s): E66.01 - MORBID (SEVERE) OBESITY DUE TO EXCESS CALORIES Status: Acute (5) Normocytic anemia Code(s): D64.9 - ANEMIA, UNSPECIFIED Status: Acute (6) Obesity hypoventilation syndrome Code(s): E66.2 - MORBID (SEVERE) OBESITY WITH ALVEOLAR HYPOVENTILATION Status : Acute (7) CAD (coronary artery disease) Code(s): I25.10 - ATHSCL HEART DISEASE OF [place] CORONARY ARTERY W/O ANG PCTRS Status: Chronic (8) CKD (chronic kidney disease) Code(s): N18.9 - CHRONIC KIDNEY DISEASE, UNSPECIFIED Status: Chronic Qualifiers: (9) Hypertension Code(s): I10 - ESSENTIAL (PRIMARY) HYPERTENSION Status: Chronic Qualifiers: (10) MAY (obstructive sleep apnea) Code(s): G47.33 - OBSTRUCTIVE SLEEP APNEA (ADULT) (PEDIATRIC) Status: Suspected (11) Urinary retention with incomplete bladder emptying Code(s): R33.9 - RETENTION OF URINE, UNSPECIFIED Status: Acute - Plan Plan: Acute on Chronic HFrEF - IMCU for intermittent BiPAP, now using home CPAP - Cards - Dr. Harrison, added dobuatmine, bumex, and dig. Titrating dobutamine and bumex per diuresis. Apprec recs. - Strict I's/O's and UOP with daily weights. - 3.7L diuresis over the last 24 hours - Elevate legs while in bed, encourage PT and ambulating. - Holding BB and CHETAN 2/2 dobutamine and renal function Hypercapnic respiratory failure - Acute worsening of status on 08/24, ABG obtained, placed on BiPAP, transferred to IMCU. Improved. - Pulm - Dr. Sandoval, intermittent home CPAP as needed. Added nebs and mucinex Acute on Chronic Respiratory Failure with hypoxia, COPD - O2 supplementation as needed, CPAP at night 2/2 MAY. Uses 2L at home - See above Hyperbilirubinemia - TB 2.2 -> 1.6 -> 2.0. Likely hepatic congestion. - Stable. - Remainder of LFTs WNL, no RUQ pain or h/o liver disease. - Will cont to monitor CKD III - Cr improved and stable @ 1.25 - Cont to monitor with diuresis. A-fib, Rhythm and rate-controlled - CHADSVASc 4, HASBLED 3 - history of GI bleed on anticoagulation and thus has been discontinued at previous admission - Now in sinus. On digoxin. Holding BB 2/2 dobutamine. Cont to monitor and adjust medications prn Chronic, microcytic anemia - Hb 9.9, stable, no s/s of acute blood loss - h/o iron def anemia in 2018, Ferritin 15 - S/p iron infusion, will cont oral replacement. HTN - continue home regimen - Hold norvasx 2/2 LE edema at this time, holding lisinopril 2/2 renal function BPH with acute obstruction - Urology consulted, placed guadalupe for 1100 PVR. Recommended keeping in place until DC'd by them - cont home flomax Code: Full IVF: SL Diet: HH, Lo Na, fluid restriction VTE: Lovenox PCP: Dr. Samson Disposition: [facility] for hypoxic and hypercapnic respiratory failure 2/2 CHF and COPD exacerbation - now stable. Pulm and Cards consulted, apprec recs. Cont current mangement and monitor resp status. Cont to monitor diuresis. Addendum - Attending - Attending Attestation Date/Time: 08/26/19 1257 I personally evaluated the patient at 0740 am and discussed the management with Dr. Tomlin. I agree with the History, Examination, Assessment and Plan documented above with any addition or exceptions noted below. Acute CHF exac- still with 2+ piiting edema at knee and 3+ pitting edema at ankle COPD- home meds MAY- cpap as needed h/o afib-hr in low 100s. watch closely. (holding beta douglas per cards). - continue dobutamine per cards. diuresis and close lyte monitoring. Expect 1-2 more days in IMCU
[2019-08-26] MEDS ORDERED: Bumetanide 1 MG/4 ML VIAL IVP SCH (06:00)
[2019-08-26] MEDS: Enoxaparin Sodium 40 MG/0.4 ML SYRINGE SC SCH (08:53)
[2019-08-26] MEDS: Ferrous Sulfate 325 MG TAB PO SCH (08:54)
[2019-08-26] MEDS: Tamsulosin HCl 0.4 MG CAP PO SCH (08:54)
[2019-08-26] MEDS: Digoxin 0.125 MG TAB PO SCH (08:54)
[2019-08-26] MEDS: Aspirin Chewable 81 MG TAB PO SCH (08:54)
[2019-08-26] MEDS: guaiFENesin ER 600 MG TAB PO SCH ×2 (08:54→20:12)
[2019-08-26] MEDS: Multivit, Therapeutic 1 TAB PO SCH (08:54)
--- NOTE | 2019-08-26 11:04 | PDOC.CPN ---
- Subjective Date: 08/26/19 Time: 11:04 Interval history: Feeling better overall Has diuresed with lasix and dobutrex 1100cc post guadalupe placement and has had an additional 2400cc this am - Objective Allergies/Adverse Reactions: Allergies Allergy/AdvReac Type Severity Reaction Status Date / Time No Known Drug Allergies Allergy Verified 08/03/18 08:42 Visit Medications: Current Medications Acetaminophen (Tylenol) 650 mg PO Q4H PRN PRN Reason: Headache/Fever/Mild Pain (1-3) Albuterol/Ipratropium (Duoneb) 3 ml NEB [id number] [facility] Last Admin: 08/26/19 10:38 Dose: 3 ml Aspirin (Aspirin Chewable) 81 mg PO QAM [facility] Last Admin: 08/26/19 08:54 Dose: 81 mg Bumetanide (Bumex) 2 mg IVP 0600,1400 [facility] Last Admin: 08/26/19 05:08 Dose: 2 mg Digoxin (Lanoxin) 0.125 mg PO DAILY [facility] Last Admin: 08/26/19 08:54 Dose: 0.125 mg Enoxaparin Sodium (Lovenox) 40 mg SC 0900 [facility] Last Admin: 08/26/19 08:53 Dose: 40 mg Ferrous Sulfate (Feosol) 325 mg PO QAM-[facility] Last Admin: 08/26/19 08:54 Dose: 325 mg Guaifenesin (Mucinex) 1,200 mg PO Q12HR [facility] Last Admin: 08/26/19 08:54 Dose: 1,200 mg Dobutamine HCl/Dextrose (Dobutamine 500 Mg/250 Ml) 250 mls @ 24.589 mls/hr IVPB INF [facility]; Protocol Last Admin: 08/25/19 22:41 Dose: 250 mls Multivitamins (Theragran) 1 tab PO DAILY [facility] Last Admin: 08/26/19 08:54 Dose: 1 tab Ondansetron HCl (Zofran Odt) 4 mg PO Q6H PRN PRN Reason: Nausea/Vomiting Polyethylene Glycol (Miralax) 17 gm PO DAILYPRN PRN PRN Reason: Constipation Sodium Chloride (Flush - Normal Saline) 10 ml IVF Q12HR [facility] Last Admin: 08/26/19 08:55 Dose: 10 ml Sodium Chloride (Flush - Normal Saline) 10 ml IVF PRN PRN PRN Reason: Saline Flush Last Admin: 08/25/19 05:25 Dose: 10 ml Tamsulosin HCl (Flomax) 0.4 mg PO QAM [facility] Last Admin: 08/26/19 08:54 Dose: 0.4 mg Vital Signs & Weight: Vital Signs Temp Pulse Resp Pulse Ox 08/26/19 10:38 90 19 93 L 08/26/19 08:54 98 08/26/19 07:13 95 08/26/19 07:09 98.5 F 08/26/19 06:47 96 08/26/19 05:11 98 23 H 98 08/26/19 04:00 98.8 F 08/26/19 00:00 98.8 F Admit Weight 368 lb 3.2 oz Weight 360 lb - Physical Exam General: alert & oriented x3, other (obese) HEENT: mucus membranes moist Neck: supple neck Cardiac: irregularly regular Lungs: normal exam, decreased breath sounds Abdomen: unremarkable Extremities: 2+ LE edema - Labs Result Diagrams: 08/23/19 06:45 08/26/19 03:52 Troponin/CKMB CK-MB (CK-2) 2.8 ng/mL (0-6.6) 08/21/19 12:40 Troponin I 0.010 ng/mL (< 0.028) 08/21/19 19:37 - Assessment/Plan Assessment/Plan: 1. Acute on chronic combined HF - Per the pt and family, he is doing much better with Dobutamin drip; holding Coreg since he is on Dobutamin drip; not on CHETAN/ARB due to hx of CKD 2. COPD exacerbation - managed by pulmonology service 3. Chronic afib - stable HR with Digoxin; off BBlocker for now; ASA due to hx of Anemia and high risk of falls 4. HTN - stable 5. CKD stage 3 - stable 6. Sleep apnea with Cpap at HS - 7. Anemia - unchanged 8. Obese IMPRESSION 08/26 Improving on dobutrx and bumex diuresis recheck BMP in am HR elevated and watch closely on dobutrex Renal fucntion stable
[2019-08-26] MEDS: DOBUTamine 500 mg/250 ml 250 ML IVPB SCH ×2 (11:47→22:06)
--- NOTE | 2019-08-26 12:03 | PRG ---
DATE OF SERVICE: 08/26/2019 SUBJECTIVE: The patient remains on a BiPAP. Overall, he feels about the same. He has noted his leg edema decreasing over the last week. OBJECTIVE: VITAL SIGNS: On exam, temperature is 98.5, pulse 117, blood pressure 166/84, and O2 saturation 97%. Intake for 24 hours 1585, output 4350. HEENT: Unremarkable. NECK: No adenopathy or JVD. LUNGS: Diminished breath sounds at both bases. CARDIAC: S1 and S2. Regular. ABDOMEN: Soft. EXTREMITIES: 3+ edema from the knees downward. LABORATORY DATA: Sodium 138, potassium 4, chloride 92, CO2 of 37, BUN 29, creatinine 1.2, and glucose 96. ASSESSMENT: 1. Anasarca. 2. Chronic obstructive pulmonary disease/asthma. 3. Congestive heart failure with fluid overload. 4. Obstructive sleep apnea. 5. History of bladder cancer. 6. History of gastrointestinal bleeding. PLAN: 1. He is continuing intermittent BiPAP. 2. Diurese. 3. Follow electrolytes. Job ID: [id number]
[2019-08-26] MEDS: Bumetanide 1 MG/4 ML VIAL IVP SCH (13:47)
[2019-08-27 04:00] LABS: ALT (SGPT) 21 U/L (8-55); AST (SGOT) 19 U/L (5-34); Albumin 3.5 g/dL (3.4-4.8); Alkaline Phosphatase 64 U/L (40-110); BUN (Urea Nitrogen) 23 mg/dL (8.4-25.7); Bilirubin, Total 2.1 mg/dL (0.2-1.2); Calc. Creatinine Clearance 129 mL/min (70-130); Calcium 8.6 mg/dL (7.8-10.44); Estimated GFR-MDRD 67; Globulin 2.2 g/dL (2.4-3.5); Glucose 100 mg/dL (83-110); Protein, Total 5.7 g/dL (5.8-8.1)
[2019-08-27 04:09] LABS: Anion Gap 14 mmol/L (10-20); Carbon Dioxide 37 mmol/L (23-31); Chloride 92 mmol/L (98-107); Potassium 3.3 mmol/L (3.5-5.1); Sodium 140 mmol/L (136-145)
[2019-08-27] MEDS: Bumetanide 1 MG/4 ML VIAL IVP SCH ×2 (05:32→16:53)
--- NOTE | 2019-08-27 05:39 | PDOC.FM ---
- Subjective Subjective: Patient denies any acute events overnight. He notes increased resolution in his dyspnea and shortness of breath. Notes improvement in his lower extremity swelling. Continues to urinate frequently. Plans to attempt to be more mobile this morning. - Objective Vital Signs & Weight: Vital Signs (12 hours) Temp Pulse Resp BP Pulse Ox 08/27/19 03:50 99.0 F 08/27/19 00:24 113 H 30 H 158/90 H 96 08/26/19 23:32 98.8 F 08/26/19 20:00 97.7 F 08/26/19 19:49 93 L 08/26/19 19:48 116 H 20 93 L Weight Admit Weight 167.013 kg Weight 159.347 kg Most Recent Monitor Data Heart Rate from ECG 110 NIBP 154/99 NIBP BP-Mean 117 Respiration from ECG 19 SpO2 95 I&O: 08/25/19 08/26/19 08/27/19 06:59 06:59 06:59 Intake Total 927 1585 600 Output Total 1250 5399 9048 Balance -821 -3221 -0527 Result Diagrams: 08/23/19 06:45 08/27/19 03:07 Phys Exam - Physical Examination Constitutional: NAD HEENT: moist MMs Neck: full ROM ronchi with poor inspiration tachy, no murmur Gastrointestinal: soft, non-tender 3+ pitting edema BLE Neurological: non-focal, moves all 4 limbs Psychiatric: normal affect, A&O x 3 Skin: no rash, cap refill <2 seconds Dx/Plan (1) Acute on chronic congestive heart failure Code(s): I50.9 - HEART FAILURE, UNSPECIFIED Status: Acute (2) Acute respiratory failure with hypoxia and hypercapnia Code(s): J96.01 - ACUTE RESPIRATORY FAILURE WITH HYPOXIA; J96.02 - ACUTE RESPIRATORY FAILURE WITH HYPERCAPNIA Status: Acute (3) Atrial fibrillation Code(s): I48.91 - UNSPECIFIED ATRIAL FIBRILLATION Status: Acute Qualifiers: Atrial fibrillation type: unspecified Qualified Code(s): I48.91 - Unspecified atrial fibrillation (4) Morbid obesity Code(s): E66.01 - MORBID (SEVERE) OBESITY DUE TO EXCESS CALORIES Status: Acute (5) Normocytic anemia Code(s): D64.9 - ANEMIA, UNSPECIFIED Status: Acute (6) Obesity hypoventilation syndrome Code(s): E66.2 - MORBID (SEVERE) OBESITY WITH ALVEOLAR HYPOVENTILATION Status : Acute (7) CAD (coronary artery disease) Code(s): I25.10 - ATHSCL HEART DISEASE OF [place] CORONARY ARTERY W/O ANG PCTRS Status: Chronic (8) CKD (chronic kidney disease) Code(s): N18.9 - CHRONIC KIDNEY DISEASE, UNSPECIFIED Status: Chronic Qualifiers: (9) Hypertension Code(s): I10 - ESSENTIAL (PRIMARY) HYPERTENSION Status: Chronic Qualifiers: (10) MAY (obstructive sleep apnea) Code(s): G47.33 - OBSTRUCTIVE SLEEP APNEA (ADULT) (PEDIATRIC) Status: Suspected (11) Urinary retention with incomplete bladder emptying Code(s): R33.9 - RETENTION OF URINE, UNSPECIFIED Status: Acute - Plan Plan: Acute on Chronic HFrEF - IMCU for intermittent BiPAP, now using home CPAP - Cards - Dr. Harrison/Javon, added dobuatmine, bumex, and dig. Titrating dobutamine and bumex per diuresis, renal function - Monitoring elevated HR and BP on dobutamine - Strict I's/O's and UOP with daily weights. - 5L diuresis over the last 24 hours - 4# weight loss since yesterday - Elevate legs while in bed, encourage PT and ambulating. - Holding BB and CHETAN 2/2 dobutamine and renal function Hypercapnic respiratory failure - Pulm - Dr. Sandoval, intermittent home CPAP as needed. Added nebs and mucinex Acute on Chronic Respiratory Failure with hypoxia, COPD - O2 supplementation as needed, CPAP at night 2/2 MAY. Uses 2L at home - See above Hyperbilirubinemia - TB 2.2 -> 1.6 -> 2.0. Likely hepatic congestion. - Stable. - Remainder of LFTs WNL, no RUQ pain or h/o liver disease. - Will cont to monitor CKD III - Cr improved to 1.07 with dobutamine drip - Cont to monitor with diuresis. A-fib, Rhythm and rate-controlled - CHADSVASc 4, HASBLED 3 - history of GI bleed on anticoagulation and thus has been discontinued at previous admission - Now in sinus. On digoxin. Holding BB 2/2 dobutamine. Cont to monitor and adjust medications prn Chronic, microcytic anemia - Hb 9.9, stable, no s/s of acute blood loss - h/o iron def anemia in 2018, Ferritin 15 - S/p iron infusion, will cont oral replacement. HTN - continue home regimen - Hold norvasx 2/2 LE edema at this time, holding lisinopril 2/2 renal function BPH with acute obstruction - Urology consulted, placed guadalupe for 1100 PVR. Recommended keeping in place until DC'd by them - cont home flomax Code: Full IVF: SL Diet: HH, Lo Na, fluid restriction VTE: Lovenox PCP: Dr. Samson Disposition: IMCU for hypoxic and hypercapnic respiratory failure 2/2 CHF and COPD exacerbation - now stable. Pulm and Cards consulted, apprec recs. Cont dobutaine drip - renal function responding well. Pt diuresing well with dobutamine and bumex combination, continue to monitor I/O. Tolerating CPAP well without difficulty, goal is to decrease daytime need and increase pt mobility. ELOS 3-5 Addendum - Attending - Attending Attestation Date/Time: 08/27/19 1257 I personally evaluated the patient at 0755 am and discussed the management with Dr. Tomlin. I agree with the History, Examination, Assessment and Plan documented above with any addition or exceptions noted below. Lungs: ctab ant Ext: 2+ pitting edema in mid brunner, 3+ in ankles/lower legs (improved) Acute hypoxic resp failure secondary to CHF exacerbation- improved with dobutamine and bumex. Appreciate cards input. Chronic afib- rate in low 100s. monitor. CKD stage III- cr improved today. HTN- home lisinopril, norvasc being held. continue to hold per cards. HypoK- replace.
[2019-08-27] MEDS: Multivit, Therapeutic 1 TAB PO SCH (09:14)
[2019-08-27] MEDS: Tamsulosin HCl 0.4 MG CAP PO SCH (09:14)
[2019-08-27] MEDS: Digoxin 0.125 MG TAB PO SCH (09:14)
[2019-08-27] MEDS: guaiFENesin ER 600 MG TAB PO SCH ×2 (09:14→20:19)
[2019-08-27] MEDS: Ferrous Sulfate 325 MG TAB PO SCH (09:14)
[2019-08-27] MEDS: Aspirin Chewable 81 MG TAB PO SCH (09:15)
[2019-08-27] MEDS: Enoxaparin Sodium 40 MG/0.4 ML SYRINGE SC SCH (09:15)
[2019-08-27] MEDS: DOBUTamine 500 mg/250 ml 250 ML IVPB SCH ×2 (09:24→20:19)
--- NOTE | 2019-08-27 09:56 | PDOC.CPN ---
- Subjective Date: 08/27/19 Time: 12:25 Interval history: Doing much better today. Continues to diurese. - Objective Allergies/Adverse Reactions: Allergies Allergy/AdvReac Type Severity Reaction Status Date / Time No Known Drug Allergies Allergy Verified 08/03/18 08:42 Visit Medications: Current Medications Acetaminophen (Tylenol) 650 mg PO Q4H PRN PRN Reason: Headache/Fever/Mild Pain (1-3) Albuterol/Ipratropium (Duoneb) 3 ml NEB [id number] [facility] Last Admin: 08/27/19 06:26 Dose: 3 ml Aspirin (Aspirin Chewable) 81 mg PO QAM [facility] Last Admin: 08/27/19 09:15 Dose: 81 mg Bumetanide (Bumex) 2 mg IVP 0600,1400 [facility] Last Admin: 08/27/19 05:32 Dose: 2 mg Digoxin (Lanoxin) 0.125 mg PO DAILY [facility] Last Admin: 08/27/19 09:14 Dose: 0.125 mg Enoxaparin Sodium (Lovenox) 40 mg SC 0900 [facility] Last Admin: 08/27/19 09:15 Dose: 40 mg Ferrous Sulfate (Feosol) 325 mg PO QAM-[facility] Last Admin: 08/27/19 09:14 Dose: 325 mg Guaifenesin (Mucinex) 1,200 mg PO Q12HR [facility] Last Admin: 08/27/19 09:14 Dose: 1,200 mg Dobutamine HCl/Dextrose (Dobutamine 500 Mg/250 Ml) 250 mls @ 24.589 mls/hr IVPB INF [facility]; Protocol Last Admin: 08/27/19 09:24 Dose: 250 mls Multivitamins (Theragran) 1 tab PO DAILY [facility] Last Admin: 08/27/19 09:14 Dose: 1 tab Ondansetron HCl (Zofran Odt) 4 mg PO Q6H PRN PRN Reason: Nausea/Vomiting Polyethylene Glycol (Miralax) 17 gm PO DAILYPRN PRN PRN Reason: Constipation Sodium Chloride (Flush - Normal Saline) 10 ml IVF Q12HR [facility] Last Admin: 08/27/19 09:15 Dose: 10 ml Sodium Chloride (Flush - Normal Saline) 10 ml IVF PRN PRN PRN Reason: Saline Flush Last Admin: 08/25/19 05:25 Dose: 10 ml Tamsulosin HCl (Flomax) 0.4 mg PO QAM [facility] Last Admin: 08/27/19 09:14 Dose: 0.4 mg Vital Signs & Weight: Vital Signs Temp Pulse Resp BP Pulse Ox 08/27/19 09:14 113 H 08/27/19 07:41 88 L 08/27/19 07:07 98.4 F 08/27/19 06:27 98 08/27/19 06:26 113 H 20 98 08/27/19 03:50 99.0 F 08/27/19 00:24 113 H 30 H 158/90 H 96 08/26/19 23:32 98.8 F Admit Weight 368 lb 3.2 oz Weight 351 lb 4.8 oz - Physical Exam General: alert & oriented x3, other (obese) HEENT: mucus membranes moist Neck: supple neck Cardiac: irregularly regular Lungs: no rhonchi Abdomen: soft, non-tender Extremities: 2+ LE edema - Labs Result Diagrams: 08/23/19 06:45 08/27/19 03:07 Troponin/CKMB CK-MB (CK-2) 2.8 ng/mL (0-6.6) 08/21/19 12:40 Troponin I 0.010 ng/mL (< 0.028) 08/21/19 19:37 - Telemetry Supraventricular conduction: atrial fibrillation - Assessment/Plan Assessment/Plan: 1. Acute on chronic combined HF - Per the pt and family, he is doing much better with Dobutamin drip; holding Coreg since he is on Dobutamin drip; not on CHETAN/ARB due to hx of CKD 2. COPD exacerbation - managed by pulmonology service 3. Chronic afib - stable HR with Digoxin; off BBlocker for now; ASA due to hx of Anemia and high risk of falls 4. HTN - stable 5. CKD stage 3 - stable 6. Sleep apnea with Cpap at HS - 7. Anemia - unchanged 8. Obese IMPRESSION 08/27 Doing well Continue to diurese Monitor creatinine closely IMPRESSION 08/26 Improving on dobutrx and bumex diuresis recheck BMP in am HR elevated and watch closely on dobutrex Renal fucntion stable
[2019-08-27] MEDS ORDERED: Potassium Chloride 20 MEQ TAB PO SCH (10:15)
--- NOTE | 2019-08-27 11:51 | PRG ---
DATE OF SERVICE: 08/27/2019 SUBJECTIVE: He is in a jovial mood today. He is happy that he has lost a lot of edema in his leg. OBJECTIVE: VITAL SIGNS: Temperature is 98.4, pulse 110, blood pressure 144/76, respiratory rate 19. HEENT: Unremarkable. NECK: No adenopathy or JVD. LUNGS: Slightly diminished breath sounds at bases. CARDIAC: S1, S2 regular. ABDOMEN: Soft. EXTREMITIES: 2+ edema from the knees downward. LABORATORY DATA: Sodium 140, potassium 3.3, chloride 92, CO2 of 37, BUN 23, creatinine 1.0, glucose 100. ASSESSMENT: 1. Anasarca. 2. Chronic obstructive pulmonary disease/asthma. 3. Congestive heart failure with fluid overload. 4. Obstructive sleep apnea. PLAN: 1. Continue BiPAP at night. 2. He is being diuresed and his potassium is being replaced. From my standpoint, he can be transferred out to telemetry. Job ID: [id number]
[2019-08-28 04:03] LABS: ALT (SGPT) 18 U/L (8-55); AST (SGOT) 17 U/L (5-34); Albumin 3.4 g/dL (3.4-4.8); Alkaline Phosphatase 61 U/L (40-110); BUN (Urea Nitrogen) 18 mg/dL (8.4-25.7); Bilirubin, Total 1.9 mg/dL (0.2-1.2); Calc. Creatinine Clearance 138 mL/min (70-130); Calcium 8.4 mg/dL (7.8-10.44); Estimated GFR-MDRD 74; Globulin 2.4 g/dL (2.4-3.5); Glucose 98 mg/dL (83-110); Protein, Total 5.8 g/dL (5.8-8.1)
[2019-08-28 04:12] LABS: Anion Gap 11 mmol/L (10-20); Carbon Dioxide 40 mmol/L (23-31); Chloride 93 mmol/L (98-107); Potassium 3.4 mmol/L (3.5-5.1); Sodium 141 mmol/L (136-145)
[2019-08-28] MEDS: DOBUTamine 500 mg/250 ml 250 ML IVPB SCH ×2 (05:07→15:53)
[2019-08-28] MEDS: Bumetanide 1 MG/4 ML VIAL IVP SCH ×2 (05:07→13:39)
--- NOTE | 2019-08-28 05:10 | PDOC.FM ---
- Subjective Subjective: Mr. Rodgers is doing well this morning. He states his breathing is more comfortable, he complains that the O2 and CPAP are drying out his nose/mouth. - Objective MAR Reviewed: Yes Vital Signs & Weight: Vital Signs (12 hours) Temp Pulse Resp Pulse Ox 08/28/19 04:00 94 L 08/28/19 03:56 98.4 F 08/27/19 23:55 94 L 08/27/19 23:50 98.8 F 08/27/19 20:00 94 L 08/27/19 19:42 97.8 F 08/27/19 19:28 94 L 08/27/19 19:27 117 H 22 H 94 L Weight Admit Weight 167.013 kg Weight 159.347 kg Most Recent Monitor Data Heart Rate from ECG 102 NIBP 118/66 NIBP BP-Mean 83 Respiration from ECG 23 SpO2 99 I&O: 08/26/19 08/27/19 08/28/19 06:59 06:59 06:59 Intake Total 1585 1478.8 1160 Output Total 4350 6775 5300 Balance -2765 -5296.2 -4140 Result Diagrams: 08/23/19 06:45 08/28/19 03:06 Phys Exam - Physical Examination Constitutional: NAD HEENT: PERRLA, moist MMs Neck: no JVD, supple Respiratory: no rhonchi, clear to auscultation bilateral Expiratory wheezes hears bilaterally, fine crackles. Cardiovascular: no significant murmur, no rub Tachy Gastrointestinal: soft, non-tender Musculoskeletal: pulses present, edema present (2+ to the brunner) Neurological: non-focal, moves all 4 limbs Psychiatric: normal affect, A&O x 3 Skin: no rash, normal turgor, cap refill <2 seconds Dx/Plan (1) Acute on chronic congestive heart failure Code(s): I50.9 - HEART FAILURE, UNSPECIFIED Status: Acute (2) Urinary retention with incomplete bladder emptying Code(s): R33.9 - RETENTION OF URINE, UNSPECIFIED Status: Acute (3) Acute and chronic respiratory failure with hypoxia Code(s): J96.21 - ACUTE AND CHRONIC RESPIRATORY FAILURE WITH HYPOXIA Status: Acute (4) Acute respiratory failure with hypercapnia Code(s): J96.02 - ACUTE RESPIRATORY FAILURE WITH HYPERCAPNIA Status: Acute (5) Atrial fibrillation Code(s): I48.91 - UNSPECIFIED ATRIAL FIBRILLATION Status: Acute Qualifiers: Atrial fibrillation type: unspecified Qualified Code(s): I48.91 - Unspecified atrial fibrillation (6) CKD (chronic kidney disease) Code(s): N18.9 - CHRONIC KIDNEY DISEASE, UNSPECIFIED Status: Chronic Qualifiers: (7) MAY (obstructive sleep apnea) Code(s): G47.33 - OBSTRUCTIVE SLEEP APNEA (ADULT) (PEDIATRIC) Status: Suspected - Plan Plan: Acute on Chronic HFrEF - On home CPAP qHS. Tolerating well. - Cardiology consulted, appreciate recommendations. They have added dobuatmine, bumex, and dig. Titrating dobutamine and bumex per diuresis, renal function - Monitoring elevated HR and BP on dobutamine - Strict I's/O's and UOP with daily weights. - Elevate legs while in bed, encourage PT and ambulating. - Holding BB and CHETAN 2/2 dobutamine and renal function Hypercapnic respiratory failure - Pulmonology consulted, appreciate recommendations. Dr. Sandoval: intermittent home CPAP as needed. Added nebs and mucinex Acute on Chronic Respiratory Failure with hypoxia, COPD - O2 supplementation as needed, CPAP at night 2/2 MAY. Uses 2L at home - See above Hyperbilirubinemia - TB 2.2 > 1.9. Likely hepatic congestion. - Stable - Will cont to monitor CKD III - Cr improved to 0.98 with dobutamine drip - Cont to monitor with diuresis. A-fib, Rhythm and rate-controlled - CHADSVASc 4, HASBLED 3 - history of GI bleed on anticoagulation and thus has been discontinued at previous admission - Now in sinus. On digoxin. Holding BB 2/2 dobutamine. Cont to monitor and adjust medications prn - Appreciate cardiology recommendations Chronic, microcytic anemia - Hb 9.9, stable, no s/s of acute blood loss - h/o iron def anemia in 2018, Ferritin 15 - S/p iron infusion, will cont oral replacement. HTN - continue home regimen - Hold norvasx 2/2 LE edema at this time, holding lisinopril 2/2 renal function BPH with acute obstruction, guadalupe placed by urology - Recommended keeping in place until DC'd by them - cont home flomax Code: Full IVF: SL Diet: HH, Lo Na, fluid restriction VTE: Lovenox PCP: Dr. Samson Disposition: stable, inpatient. Addendum - Attending - Attending Attestation Date/Time: 08/28/19 1706 I personally evaluated the patient and discussed the management with Dr. Fu. I agree with the History, Examination, Assessment and Plan documented above with any addition or exceptions noted below. Will continue diuresis. Remains on dobutamine. Can transfer to telemetry. Pt has been seen by urology. He is feeling better but states he is grouchy today.
[2019-08-28] MEDS ORDERED: Potassium Chloride 20 MEQ TAB PO SCH (08:00)
--- NOTE | 2019-08-28 08:45 | PRG ---
DATE OF SERVICE: 08/28/2019 SUBJECTIVE: The patient is feeling better. Cardiology at bedside. OBJECTIVE: VITAL SIGNS: Stable. He is afebrile. I's and O's 1816 in, negative 6.4 L. Total I's and O's negative 4.6 L. admitting weight 364. Current weight is 344. ABDOMEN: Morbidly obese, protuberant. GENITOURINARY: Noel catheter secured, draining dilute urine. EXTREMITIES: Bilateral edema as previous. PERTINENT LABORATORY DATA: Hemoglobin 9.7. Creatinine is 0.98. UA, catheterized specimen, 4 to 6 RBCs, otherwise unremarkable. Culture negative. IMPRESSION: 1. Mr. Rodgers is a 78-year-old male with history of severe chronic obstructive pulmonary disease, congestive heart failure, admitted for exacerbation of congestive heart failure, chronic obstructive pulmonary disease. 2. History of mild benign prostatic hypertrophy, on Flomax. 3. History of bladder cancer, in remission. 4. History of urethral stricture with prior history of false passage, traumatic Noel catheter, with recent cystoscopy demonstrating no significant obstructive component of concern. No significant PVR. 5. Current admission with aggressive diuresis and deconditioned status, had urinary retention on Wednesday, requiring catheter replacement with PVR about 1.1 L. Due to significant PVR, catheter will remain in situ as he continues to be aggressively diuresed. Noel catheter will be removed per discretion when dispo near final. Continue indwelling Noel catheter, Flomax. Job ID: [id number] MTDD
[2019-08-28] MEDS: Enoxaparin Sodium 40 MG/0.4 ML SYRINGE SC SCH (09:28)
[2019-08-28] MEDS: guaiFENesin ER 600 MG TAB PO SCH ×2 (09:28→20:20)
[2019-08-28] MEDS: Tamsulosin HCl 0.4 MG CAP PO SCH (09:29)
[2019-08-28] MEDS: Ferrous Sulfate 325 MG TAB PO SCH (09:30)
[2019-08-28] MEDS: Aspirin Chewable 81 MG TAB PO SCH (09:30)
[2019-08-28] MEDS: Multivit, Therapeutic 1 TAB PO SCH (09:31)
[2019-08-28] MEDS: Digoxin 0.125 MG TAB PO SCH (09:31)
[2019-08-28] MEDS ORDERED: Digoxin 0.125 MG TAB PO SCH (10:30)
--- NOTE | 2019-08-28 11:11 | PDOC.CPN ---
- Subjective Date: 08/28/19 Time: 11:10 Interval history: The pt seen and examined. No overnight events. No cardiac complaints. - Objective Allergies/Adverse Reactions: Allergies Allergy/AdvReac Type Severity Reaction Status Date / Time No Known Drug Allergies Allergy Verified 08/03/18 08:42 Visit Medications: Current Medications Acetaminophen (Tylenol) 650 mg PO Q4H PRN PRN Reason: Headache/Fever/Mild Pain (1-3) Albuterol/Ipratropium (Duoneb) 3 ml NEB [id number] Last Admin: 08/28/19 08:09 Dose: 3 ml Aspirin (Aspirin Chewable) 81 mg PO QAM [facility] Last Admin: 08/28/19 09:30 Dose: 81 mg Bumetanide (Bumex) 2 mg IVP 0600,1400 [facility] Last Admin: 08/28/19 05:07 Dose: 2 mg Digoxin (Lanoxin) 0.25 mg PO DAILY [facility] Digoxin (Lanoxin) 0.125 mg PO NOW [facility] Stop: 08/28/19 12:30 Enoxaparin Sodium (Lovenox) 40 mg SC 0900 [facility] Last Admin: 08/28/19 09:28 Dose: 40 mg Ferrous Sulfate (Feosol) 325 mg PO QAM[facility] Last Admin: 08/28/19 09:30 Dose: 325 mg Guaifenesin (Mucinex) 1,200 mg PO Q12HR [facility] Last Admin: 08/28/19 09:28 Dose: 1,200 mg Dobutamine HCl/Dextrose (Dobutamine 500 Mg/250 Ml) 250 mls @ 24.589 mls/hr IVPB INF [facility]; Protocol Last Admin: 08/28/19 05:07 Dose: 250 mls Multivitamins (Theragran) 1 tab PO DAILY [facility] Last Admin: 08/28/19 09:31 Dose: 1 tab Ondansetron HCl (Zofran Odt) 4 mg PO Q6H PRN PRN Reason: Nausea/Vomiting Polyethylene Glycol (Miralax) 17 gm PO DAILYPRN PRN PRN Reason: Constipation Sodium Chloride (Flush - Normal Saline) 10 ml IVF Q12HR [facility] Last Admin: 08/28/19 09:30 Dose: 10 ml Sodium Chloride (Flush - Normal Saline) 10 ml IVF PRN PRN PRN Reason: Saline Flush Last Admin: 08/25/19 05:25 Dose: 10 ml Tamsulosin HCl (Flomax) 0.4 mg PO QAM [facility] Last Admin: 08/28/19 09:29 Dose: 0.4 mg Vital Signs & Weight: Vital Signs Temp Pulse Resp Pulse Ox 08/28/19 09:31 114 H 08/28/19 08:12 99 08/28/19 08:09 114 H 17 99 08/28/19 08:00 98 08/28/19 07:39 98.2 F 08/28/19 04:00 94 L 08/28/19 03:56 98.4 F 08/27/19 23:55 94 L 08/27/19 23:50 98.8 F Admit Weight 368 lb 3.2 oz Weight 344 lb - Physical Exam General: alert & oriented x3 HEENT: mucus membranes moist Neck: supple neck Cardiac: irregularly regular Lungs: decreased breath sounds Extremities: other: ( 2-3+ pitting BLE edema) - Labs Result Diagrams: 08/23/19 06:45 08/28/19 03:06 Troponin/CKMB CK-MB (CK-2) 2.8 ng/mL (0-6.6) 08/21/19 12:40 Troponin I 0.010 ng/mL (< 0.028) 08/21/19 19:37 - Telemetry Supraventricular conduction: atrial fibrillation - Assessment/Plan Assessment/Plan: 1. Acute on chronic combined HF - Per the pt and family, he is doing much better with Dobutamin drip; holding Coreg since he is on Dobutamin drip; not on CHETAN/ARB due to hx of CKD 2. COPD exacerbation - managed by pulmonology service 3. Chronic afib - stable HR with Digoxin; off BBlocker for now; ASA due to hx of Anemia and high risk of falls 4. HTN - stable 5. CKD stage 3 - stable 6. Sleep apnea with Cpap at HS - 7. Anemia - unchanged 8. Obese 9. Afib - will increase Digoxin to 0.25mg qd from today MAR reviewed * Echo on 08/22/2019 with EF 40-45% (50-55% in 09/2017) mild ERV, mild ERA, mild MR, TR, and WA Pt. seen and eval. by me. I agree with the A/P by the [employer]. He has diuresed over 20 liters . he is feeling much better but tstill has significant edema. chest clear. Irreg/irreg. 2+ edema. The HR is slightly elevated with the atrial fibrillation. Continue present meds at this time. Eventually decrease diuretics to avoid over diuresis but at this time that does not appear to be the case. renal function is stable. gjm
[2019-08-28] MEDS: Acetaminophen 325 MG TAB PO PRN (20:20)
--- NOTE | 2019-08-28 21:49 | CON ---
DATE OF CONSULTATION: SUBJECTIVE: He says he is feeling much better. OBJECTIVE: VITAL SIGNS: His heart rate is 103, respiratory rates in the teens, blood pressure 153/91, it was 173/119, but this was a wrist cuff. LUNGS: Clear. HEART: Regular rhythm. ABDOMEN: Soft. EXTREMITIES: Lower extremity edema has improved. LABORATORY DATA: Intake and outputs; -2765 two days ago; -5296 yesterday, and -4608 today. He is clearly diuresing effectively. IMPRESSION: We will continue to follow. His COPD and asthma are really not a clinical issue at this point, and he is compliant with his nocturnal ventilation. Job ID: [id number]
[2019-08-29] MEDS: DOBUTamine 500 mg/250 ml 250 ML IVPB SCH ×2 (02:31→13:34)
--- NOTE | 2019-08-29 05:16 | PDOC.FM ---
- Subjective Subjective: Mr. Rodgers is doing well this morning. He is confused as to why people keep asking about a-fib as he has no history of this. He is also unclear as to why he became so fluid overloaded. - Objective MAR Reviewed: Yes Vital Signs & Weight: Vital Signs (12 hours) Temp Pulse Resp BP BP Pulse Ox 08/29/19 04:00 97.5 F L 112 H 18 111/82 95 08/29/19 01:02 97.6 F 109 H 20 119/72 94 L 08/29/19 00:00 20 96 08/28/19 20:21 130/68 08/28/19 20:00 93 L 08/28/19 19:51 109 H 20 93 L 08/28/19 19:08 98.4 F 111 H 18 121/80 90 L Weight Admit Weight 167.013 kg Weight 156.036 kg Most Recent Monitor Data Heart Rate from ECG 114 NIBP 114/54 NIBP BP-Mean 74 Respiration from ECG 15 SpO2 94 I&O: 08/27/19 08/28/19 08/29/19 06:59 06:59 06:59 Intake Total 1478.8 1816.8 Output Total 6775 6425 4220 Balance -5296.2 -4608.2 -4220 Result Diagrams: 08/23/19 06:45 08/29/19 04:43 Phys Exam - Physical Examination Constitutional: NAD Dx/Plan (1) Acute on chronic congestive heart failure Code(s): I50.9 - HEART FAILURE, UNSPECIFIED Status: Acute (2) Urinary retention with incomplete bladder emptying Code(s): R33.9 - RETENTION OF URINE, UNSPECIFIED Status: Acute (3) Acute and chronic respiratory failure with hypoxia Code(s): J96.21 - ACUTE AND CHRONIC RESPIRATORY FAILURE WITH HYPOXIA Status: Acute (4) Acute respiratory failure with hypercapnia Code(s): J96.02 - ACUTE RESPIRATORY FAILURE WITH HYPERCAPNIA Status: Acute (5) Atrial fibrillation Code(s): I48.91 - UNSPECIFIED ATRIAL FIBRILLATION Status: Acute Qualifiers: Atrial fibrillation type: unspecified Qualified Code(s): I48.91 - Unspecified atrial fibrillation (6) CKD (chronic kidney disease) Code(s): N18.9 - CHRONIC KIDNEY DISEASE, UNSPECIFIED Status: Chronic Qualifiers: (7) MAY (obstructive sleep apnea) Code(s): G47.33 - OBSTRUCTIVE SLEEP APNEA (ADULT) (PEDIATRIC) Status: Suspected - Plan Plan: Acute on Chronic HFrEF - On home CPAP qHS. Tolerating well. - Cardiology consulted, appreciate recommendations. They have added dobuatmine, bumex, and dig. Titrating dobutamine and bumex per diuresis and renal function. Yesterday cardiology increased dose of digoxin to 0.25mg daily. - He diuresed another 4L yesterday. - Strict I's/O's and UOP with daily weights. - Elevate legs while in bed, encourage PT and ambulating. - Holding BB and CHETAN 2/2 dobutamine and renal function Hypokalemia - K of 3.4 this morning. Added 20meq K-dur BID WM Hypercapnic respiratory failure - Pulmonology consulted, appreciate recommendations. Dr. Sandoval: intermittent home CPAP as needed. Added nebs and mucinex Acute on Chronic Respiratory Failure with hypoxia, COPD - O2 supplementation as needed, CPAP at night 2/2 MAY. Uses 2L at home - See above Hyperbilirubinemia - Likely hepatic congestion. Stable, will cont to monitor. CKD III - Cr improved to 0.98 with dobutamine drip - Cont to monitor with diuresis. A-fib, Rhythm and rate-controlled - CHADSVASc 4, HASBLED 3 - history of GI bleed on anticoagulation and thus has been discontinued at previous admission - Now in sinus. On digoxin. Holding BB 2/2 dobutamine. Cont to monitor and adjust medications prn - Appreciate cardiology recommendations Chronic, microcytic anemia - Hb 9.9, stable, no s/s of acute blood loss - h/o iron def anemia in 2018, Ferritin 15 - S/p iron infusion, will cont oral replacement. HTN - continue home regimen - Hold norvasx 2/2 LE edema at this time, holding lisinopril 2/2 renal function BPH with acute obstruction, guadalupe placed by urology - Recommended keeping in place until DC'd by them - cont home flomax Code: Full IVF: SL Diet: HH, Lo Na, fluid restriction VTE: Lovenox PCP: Dr. Samson Disposition: stable, inpatient. Addendum - Attending - Attending Attestation Date/Time: 08/29/19 0973 I personally evaluated the patient and discussed the management with Dr. Fu. I agree with the History, Examination, Assessment and Plan documented above with any addition or exceptions noted below. Pt remains on dobutamine in order to aggressively diurese pt. He is continuing to improve though he does still have lower extremity edema. Following cardiology recs. Appreciate urology recs regarding guadalupe.
[2019-08-29 05:36] LABS: ALT (SGPT) 25 U/L (8-55); AST (SGOT) 25 U/L (5-34); Albumin 3.4 g/dL (3.4-4.8); Alkaline Phosphatase 65 U/L (40-110); BUN (Urea Nitrogen) 19 mg/dL (8.4-25.7); Bilirubin, Total 2.2 mg/dL (0.2-1.2); Calc. Creatinine Clearance 114 mL/min (70-130); Calcium 8.4 mg/dL (7.8-10.44); Estimated GFR-MDRD 61; Globulin 2.5 g/dL (2.4-3.5); Glucose 100 mg/dL (83-110); Protein, Total 5.9 g/dL (5.8-8.1)
[2019-08-29] MEDS: Bumetanide 1 MG/4 ML VIAL IVP SCH ×2 (05:39→16:16)
[2019-08-29 05:45] LABS: Anion Gap 12 mmol/L (10-20); Carbon Dioxide 39 mmol/L (23-31); Chloride 92 mmol/L (98-107); Potassium 3.4 mmol/L (3.5-5.1); Sodium 140 mmol/L (136-145)
--- NOTE | 2019-08-29 07:55 | PRG ---
DATE OF SERVICE: 08/29/2019 SUBJECTIVE: The patient without complaints, feeling better. Denies chest pain or shortness of breath. OBJECTIVE: VITAL SIGNS: Stable. I's and O's; 4 L diuresed yesterday. ABDOMEN: Soft, morbid obesity. GENITOURINARY: Noel catheter demonstrating clear dilute urine. PERTINENT LABORATORY DATA: Creatinine is 1.1. Urine culture negative. IMPRESSION AND PLAN: 1. Mr. Rodgers is a 78-year-old male admitted for congestive heart failure, chronic obstructive pulmonary disease exacerbation, undergoing aggressive diuresis. 2. History of benign prostatic hyperplasia, Flomax. 3. History of urethral stricture/false passage traumatic Noel catheter placement with recent cystoscopy demonstrating no significant obstructing stricture of concern. 4. Current admission with aggressive diuresis, deconditioned status, developed urinary retention with PVR 1.1 L. Catheter placed by without significant issues. Continue Noel catheter as he continues to be aggressively diuresed, voiding trial to be initiated per discretion. Await disposition. Job ID: [id number]
[2019-08-29] MEDS: Digoxin 0.25 MG TAB PO SCH (09:14)
[2019-08-29] MEDS: Aspirin Chewable 81 MG TAB PO SCH (09:16)
[2019-08-29] MEDS: Tamsulosin HCl 0.4 MG CAP PO SCH (09:16)
[2019-08-29] MEDS: Ferrous Sulfate 325 MG TAB PO SCH (09:16)
[2019-08-29] MEDS: guaiFENesin ER 600 MG TAB PO SCH ×2 (09:16→21:01)
[2019-08-29] MEDS: Multivit, Therapeutic 1 TAB PO SCH (09:17)
[2019-08-29] MEDS: Potassium Chloride 20 MEQ TAB PO SCH ×2 (09:18→16:15)
[2019-08-29] MEDS: Enoxaparin Sodium 40 MG/0.4 ML SYRINGE SC SCH (09:18)
[2019-08-29] MEDS: Polyethylene Glycol 3350 17 GM Packet PO PRN (12:31)
--- NOTE | 2019-08-29 17:03 | PDOC.CPN ---
- Subjective Date: 08/29/19 Time: 17:03 Interval history: The pt seen and examined. No overnight events. No cardiac complaints. - Objective Allergies/Adverse Reactions: Allergies Allergy/AdvReac Type Severity Reaction Status Date / Time No Known Drug Allergies Allergy Verified 08/03/18 08:42 Visit Medications: Current Medications Acetaminophen (Tylenol) 650 mg PO Q4H PRN PRN Reason: Headache/Fever/Mild Pain (1-3) Last Admin: 08/28/19 20:20 Dose: 650 mg Albuterol/Ipratropium (Duoneb) 3 ml NEB [id number] Last Admin: 08/29/19 15:04 Dose: 3 ml Aspirin (Aspirin Chewable) [facility] Last Admin: 08/29/19 09:16 Dose: 81 mg Bumetanide (Bumex) 2 mg IVP 0600,1400 [facility] [place] Last Admin: 08/29/19 16:16 Dose: 2 mg Digoxin (Lanoxin) 0.25 mg PO DAILY [facility] Last Admin: 08/29/19 09:14 Dose: 0.25 mg Enoxaparin Sodium (Lovenox) 40 mg SC 0900 [facility] Last Admin: 08/29/19 09:18 Dose: 40 mg Ferrous Sulfate (Feosol) 325 mg PO QAM[facility] Last Admin: 08/29/19 09:16 Dose: 325 mg Guaifenesin (Mucinex) 1,200 mg PO Q12HR [facility] Last Admin: 08/29/19 09:16 Dose: 1,200 mg Dobutamine HCl/Dextrose (Dobutamine 500 Mg/250 Ml) 250 mls @ 24.589 mls/hr IVPB INF [facility]; Protocol Last Admin: 08/29/19 13:34 Dose: 250 mls Multivitamins (Theragran) 1 tab PO DAILY [facility] Last Admin: 08/29/19 09:17 Dose: 1 tab Ondansetron HCl (Zofran Odt) 4 mg PO Q6H PRN PRN Reason: Nausea/Vomiting Polyethylene Glycol (Miralax) 17 gm PO DAILYPRN PRN PRN Reason: Constipation Last Admin: 08/29/19 12:31 Dose: 17 gm Potassium Chloride (K-Dur) 20 meq PO BID[facility] Last Admin: 08/29/19 16:15 Dose: 20 meq Sodium Chloride (Flush - Normal Saline) 10 ml IVF Q12HR [facility] Last Admin: 08/29/19 09:17 Dose: Not Given Sodium Chloride (Flush - Normal Saline) 10 ml IVF PRN PRN PRN Reason: Saline Flush Last Admin: 08/25/19 05:25 Dose: 10 ml Tamsulosin HCl (Flomax) 0.4 mg PO QAM [facility] Last Admin: 08/29/19 09:16 Dose: 0.4 mg Vital Signs & Weight: Vital Signs Temp Pulse Resp BP Pulse Ox 08/29/19 15:51 97.4 F L 101 H 17 94/69 96 08/29/19 15:04 101 H 16 98 08/29/19 11:50 98 F 103 H 18 146/87 H 97 08/29/19 09:14 112 H 95 08/29/19 07:52 98.1 F 111 H 17 138/75 95 08/29/19 07:41 113 H 18 96 Admit Weight 368 lb 3.2 oz Weight 342 lb - Physical Exam General: alert & oriented x3 HEENT: mucus membranes moist Neck: supple neck Cardiac: irregularly regular, S1/S2 Lungs: decreased breath sounds, bibasilar rales Neuro: cranial nerve 2-12 intact Abdomen: unremarkable - Labs Result Diagrams: 08/23/19 06:45 08/29/19 04:43 Troponin/CKMB CK-MB (CK-2) 2.8 ng/mL (0-6.6) 08/21/19 12:40 Troponin I 0.010 ng/mL (< 0.028) 08/21/19 19:37 - Telemetry Supraventricular conduction: atrial fibrillation - Assessment/Plan Assessment/Plan: 1. Acute on chronic combined HF - stable with Dobutamin drip; holding Coreg since he is on Dobutamin drip; not on CHETAN/ARB due to hx of CKD 2. COPD exacerbation - managed by pulmonology service 3. Chronic afib - stable HR with Digoxin; off BBlocker for now; ASA due to hx of Anemia and high risk of falls 4. HTN - stable 5. CKD stage 3 - stable 6. Sleep apnea with Cpap at HS - 7. Anemia - unchanged 8. Obese - weight management education with regular exercise given to the pt and family MAR reviewed * Echo on 08/22/2019 with EF 40-45% (50-55% in 09/2017) mild ERV, mild ERA, mild MR, TR, and CA Pt. seen and eval. by me. I agree with the A/P by the [employer]. He is diuresing about 1 gallon a day. The etiology of his anemia is unclear. I would think the Hgb. would increase after all the diuresis thus far.Once he has reached a steady state then we will need to remove the guadalupe catheter and find the right combination of diuretics to maintain his vol. status.
--- NOTE | 2019-08-29 17:27 | PRG ---
DATE OF SERVICE: 08/29/2019 SUBJECTIVE: Mr. Rodgers says he is feeling better. OBJECTIVE: GENERAL: He is in no distress. VITAL SIGNS: He is afebrile. Heart rate is 100, respiratory rate 17, oximetry is 96 on 3 L cannula. Blood pressure is 94/69, earlier it was 146/87. LUNGS: Clear. HEART: Regular rhythm. ABDOMEN: Soft. EXTREMITIES: With improved edema. Intake and output was again negative 4259. LABORATORY DATA: His potassium is 3.4 today. Creatinine is still 1.16. IMPRESSION: 1. Volume overload, slowly improving with diuresis. 2. Chronic obstructive pulmonary disease and asthmatic bronchitis, clinically stable. Job ID: [id number] [facility]
[2019-08-30] MEDS: DOBUTamine 500 mg/250 ml 250 ML IVPB SCH ×3 (00:16→23:55)
[2019-08-30 05:21] LABS: ALT (SGPT) 35 U/L (8-55); AST (SGOT) 36 U/L (5-34); Albumin 3.3 g/dL (3.4-4.8); Alkaline Phosphatase 65 U/L (40-110); Anion Gap 17 mmol/L (10-20); BUN (Urea Nitrogen) 19 mg/dL (8.4-25.7); Bilirubin, Total 1.9 mg/dL (0.2-1.2); Calc. Creatinine Clearance 119 mL/min (70-130); Calcium 8.4 mg/dL (7.8-10.44); Carbon Dioxide 32 mmol/L (23-31); Chloride 94 mmol/L (98-107); Estimated GFR-MDRD 65; Globulin 2.6 g/dL (2.4-3.5); Glucose 99 mg/dL (83-110); Potassium 3.9 mmol/L (3.5-5.1); Protein, Total 5.9 g/dL (5.8-8.1); Sodium 139 mmol/L (136-145)
--- NOTE | 2019-08-30 05:28 | PDOC.FM ---
- Subjective Subjective: Mr. Rodgers is doing well this morning, he states he did not sleep well last night due to his IV beeping. Otherwise no complaints. - Objective MAR Reviewed: Yes Vital Signs & Weight: Vital Signs (12 hours) Temp Pulse Resp BP Pulse Ox 08/30/19 04:00 97.5 F L 97 16 123/95 H 95 08/30/19 00:00 97.8 F 102 H 22 H 140/92 H 93 L 08/29/19 19:40 97.7 F 114 H 24 H 109/61 92 L 08/29/19 19:13 96 08/29/19 19:11 98 Weight Admit Weight 167.013 kg Weight 155.129 kg Most Recent Monitor Data Heart Rate from ECG 114 NIBP 114/54 NIBP BP-Mean 74 Respiration from ECG 15 SpO2 94 I&O: 08/28/19 08/29/19 08/30/19 06:59 06:59 06:59 Intake Total 1816.8 586 840 Output Total 6425 [address] [facility] -[phone] Result Diagrams: 08/23/19 06:45 08/30/19 04:21 Phys Exam - Physical Examination Constitutional: NAD HEENT: PERRLA, moist MMs, sclera anicteric Neck: no JVD, supple Respiratory: no wheezing, no rales, no rhonchi, clear to auscultation bilateral Cardiovascular: no significant murmur, no rub Tachycardic, atrial fibrillation. Gastrointestinal: soft, non-tender Musculoskeletal: pulses present 1+ edema at the knee, 2+ at the ankle. Improving. Neurological: non-focal, normal sensation Psychiatric: normal affect, A&O x 3 Skin: no rash, normal turgor Dx/Plan (1) Acute on chronic congestive heart failure Code(s): I50.9 - HEART FAILURE, UNSPECIFIED Status: Acute (2) Urinary retention with incomplete bladder emptying Code(s): R33.9 - RETENTION OF URINE, UNSPECIFIED Status: Acute (3) Acute and chronic respiratory failure with hypoxia Code(s): J96.21 - ACUTE AND CHRONIC RESPIRATORY FAILURE WITH HYPOXIA Status: Acute (4) Acute respiratory failure with hypercapnia Code(s): J96.02 - ACUTE RESPIRATORY FAILURE WITH HYPERCAPNIA Status: Acute (5) Atrial fibrillation Code(s): I48.91 - UNSPECIFIED ATRIAL FIBRILLATION Status: Acute Qualifiers: Atrial fibrillation type: unspecified Qualified Code(s): I48.91 - Unspecified atrial fibrillation (6) CKD (chronic kidney disease) Code(s): N18.9 - CHRONIC KIDNEY DISEASE, UNSPECIFIED Status: Chronic Qualifiers: (7) MAY (obstructive sleep apnea) Code(s): G47.33 - OBSTRUCTIVE SLEEP APNEA (ADULT) (PEDIATRIC) Status: Suspected - Plan Plan: Acute on Chronic HFrEF - On home CPAP qHS. Tolerating well. - Cardiology consulted, appreciate recommendations. They have added dobuatmine, bumex, and dig. He has been persistently tachycardic on dobutamine drip. - He diuresed another 2.5L yesterday. - Strict I's/O's and UOP with daily weights. - Elevate legs while in bed, encourage PT and ambulating. - Holding BB and CHETAN 2/2 dobutamine and renal function - Patient is approaching euvolemia. We will await cardiology recommendations for the discontinuation of dobutamine and transition to oral diuretics. Hypokalemia - Added 20meq K-dur BID WM Hypercapnic respiratory failure - Pulmonology consulted, appreciate recommendations. Dr. Sandoval: intermittent home CPAP as needed. Added nebs and mucinex Acute on Chronic Respiratory Failure with hypoxia, resolved COPD - O2 supplementation as needed, CPAP at night 2/2 MAY. Uses 2L at home - See above Hyperbilirubinemia - Likely hepatic congestion. Stable, will cont to monitor. CKD III - Cr improved with dobutamine drip - Cont to monitor with diuresis. A-fib, Rhythm and rate-controlled - CHADSVASc 4, HASBLED 3 - history of GI bleed on anticoagulation and thus has been discontinued at previous admission - Now in sinus. On digoxin. Holding BB 2/2 dobutamine. Cont to monitor and adjust medications prn - Appreciate cardiology recommendations Chronic, microcytic anemia - S/p iron infusion, will cont oral replacement. HTN - continue home regimen - Hold norvasx 2/2 LE edema at this time, holding lisinopril 2/2 renal function BPH with acute obstruction, guadalupe placed by urology - Recommended keeping in place until DC'd by them - cont home flomax Code: Full IVF: SL Diet: HH, Lo Na, fluid restriction VTE: Lovenox PCP: Dr. Samson Disposition: stable, inpatient. Addendum - Attending - Attending Attestation Date/Time: 08/30/192110 I personally evaluated the patient and discussed the management with Dr. Fu. I agree with the History, Examination, Assessment and Plan documented above with any addition or exceptions noted below. The patient put off an additional 2.6 liters yesterday. Continue dobutamine and diuretics. Pt has been ambulating with PT.
[2019-08-30] MEDS: Bumetanide 1 MG/4 ML VIAL IVP SCH ×2 (07:45→14:33)
--- NOTE | 2019-08-30 08:23 | PRG ---
DATE OF SERVICE: 08/30/2019 SUBJECTIVE: The patient without complaints. Denies significant chest pain or shortness of breath. OBJECTIVE: VITAL SIGNS: Stable. I's and O's 1140 in, 5 L out. He is negative 3.9 L. Admitting weight is 368. Current weight is 342. ABDOMEN: Morbidly obese, protuberant. EXTREMITIES: Demonstrate pitting edema; however, improved. GENITOURINARY: Noel catheter secured and adequate. Concentrated yellow urine. LABORATORY DATA: Creatinine is 1.1. Urine culture negative. IMPRESSION: 1. A 78-year-old male admitted for congestive heart failure, chronic obstructive pulmonary disease exacerbation. 2. History of benign prostatic hyperplasia, on Flomax. 3. History of urethral stricture, false passage traumatic Noel catheter placement in the remote past. Recent cystoscopy demonstrating nonobstructing urethral stricture, in which Noel catheter was placed without difficulty. 4. Current admission with aggressive diuresis, deconditioned status, although he does not have an anatomical obstruction nor significant PVR with initial presentation, developed urinary retention of 1.1 L, therefore, Noel catheter remains for aggressive diuresis. When dispo is final, I will initiate a voiding trial. Job ID: [id number] MTD[facility]
[2019-08-30] MEDS: Potassium Chloride 20 MEQ TAB PO SCH ×2 (09:24→17:57)
[2019-08-30] MEDS: Digoxin 0.25 MG TAB PO SCH (09:24)
[2019-08-30] MEDS: Multivit, Therapeutic 1 TAB PO SCH (09:25)
[2019-08-30] MEDS: Aspirin Chewable 81 MG TAB PO SCH (09:25)
[2019-08-30] MEDS: Tamsulosin HCl 0.4 MG CAP PO SCH (09:25)
[2019-08-30] MEDS: Ferrous Sulfate 325 MG TAB PO SCH (09:25)
[2019-08-30] MEDS: guaiFENesin ER 600 MG TAB PO SCH ×2 (09:25→21:16)
[2019-08-30] MEDS: Enoxaparin Sodium 40 MG/0.4 ML SYRINGE SC SCH (09:26)
--- NOTE | 2019-08-30 13:00 | PDOC.CPN ---
- Subjective Date: 08/30/19 Time: 13:02 Interval history: The pt seen and examined. No overnight events. No cardiac complaints. - Objective Allergies/Adverse Reactions: Allergies Allergy/AdvReac Type Severity Reaction Status Date / Time No Known Drug Allergies Allergy Verified 08/03/18 08:42 Visit Medications: Current Medications Acetaminophen (Tylenol) 650 mg PO Q4H PRN PRN Reason: Headache/Fever/Mild Pain (1-3) Last Admin: 08/28/19 20:20 Dose: 650 mg Albuterol/Ipratropium (Duoneb) 3 ml NEB [id number] [facility] Last Admin: 08/30/19 10:36 Dose: 3 ml Aspirin (Aspirin Chewable) 81 mg PO QAJD [facility] [place] Last Admin: 08/30/19 09:25 Dose: 81 mg Bumetanide (Bumex) 2 mg IVP 0600,1400 [facility] Last Admin: 08/30/19 07:45 Dose: 2 mg Digoxin (Lanoxin) 0.25 mg PO DAILY [facility] Last Admin: 08/30/19 09:24 Dose: 0.25 mg Enoxaparin Sodium (Lovenox) 40 mg SC 0900 [facility] Last Admin: 08/30/19 09:26 Dose: 40 mg Ferrous Sulfate (Feosol) 325 mg PO QAM-[facility] Last Admin: 08/30/19 09:25 Dose: 325 mg Guaifenesin (Mucinex) 1,200 mg PO Q12HR [facility] Last Admin: 08/30/19 09:25 Dose: 1,200 mg Dobutamine HCl/Dextrose (Dobutamine 500 Mg/250 Ml) 250 mls @ 24.589 mls/hr IVPB INF [facility]; Protocol Last Admin: 08/30/19 12:24 Dose: 250 mls Multivitamins (Theragran) 1 tab PO DAILY [facility] Last Admin: 08/30/19 09:25 Dose: 1 tab Ondansetron HCl (Zofran Odt) 4 mg PO Q6H PRN PRN Reason: Nausea/Vomiting Polyethylene Glycol (Miralax) 17 gm PO DAILYPRN PRN PRN Reason: Constipation Last Admin: 08/29/19 12:31 Dose: 17 gm Potassium Chloride (K-Dur) 20 meq PO BID-[facility] Last Admin: 08/30/19 09:24 Dose: 20 meq Sodium Chloride (Flush - Normal Saline) 10 ml IVF Q12HR [facility] Last Admin: 08/30/19 09:25 Dose: 10 ml Sodium Chloride (Flush - Normal Saline) 10 ml IVF PRN PRN PRN Reason: Saline Flush Last Admin: 08/25/19 05:25 Dose: 10 ml Tamsulosin HCl (Flomax) 0.4 mg PO QAM [facility] Last Admin: 08/30/19 09:25 Dose: 0.4 mg Vital Signs & Weight: Vital Signs Temp Pulse Pulse Pulse Resp BP BP 08/30/19 11:55 99 F 103 H 18 08/30/19 10:36 103 H 20 08/30/19 09:24 118 H 08/30/19 08:46 123 H 102 H 125/83 120/78 08/30/19 07:41 97.8 F 108 H 17 08/30/19 06:41 111 H 24 H 08/30/19 04:00 97.5 F L 97 16 BP BP Pulse Ox 08/30/19 11:55 119/68 98 08/30/19 10:36 98 08/30/19 09:24 08/30/19 08:46 08/30/19 07:41 120/70 98 08/30/19 06:41 08/30/19 04:00 123/95 H 95 Admit Weight 368 lb 3.2 oz Weight 319 lb 8 oz - Physical Exam General: alert & oriented x3 HEENT: mucus membranes moist Neck: supple neck Cardiac: irregularly regular, S1/S2 Lungs: decreased breath sounds, bibasilar rales Neuro: cranial nerve 2-12 intact - Labs Result Diagrams: 08/23/19 06:45 08/30/19 04:21 Troponin/CKMB CK-MB (CK-2) 2.8 ng/mL (0-6.6) 08/21/19 12:40 Troponin I 0.010 ng/mL (< 0.028) 08/21/19 19:37 - Telemetry Supraventricular conduction: atrial fibrillation - Assessment/Plan Assessment/Plan: 1. Acute on chronic combined HF - stable with Dobutamin drip; holding Coreg since he is on Dobutamin drip; not on CHETAN/ARB due to hx of CKD 2. COPD exacerbation - managed by pulmonology service 3. Chronic afib - stable HR with Digoxin; off BBlocker for now; ASA due to hx of Anemia and high risk of falls 4. HTN - stable 5. CKD stage 3 - stable 6. Sleep apnea with Cpap at HS 7. Anemia - unchanged 8. Obese - weight management education with regular exercise given to the pt and family MAR reviewed * Echo on 08/22/2019 with EF 40-45% (50-55% in 09/2017) mild ERV, mild ERA, mild MR, TR, and KS Pt. seen and eval. by me. I agree with the A/P by the INFORMATION TECHNOLOGY SPECIALIST. He continues to diurese. He is negative about 25 liters. His electrolytes remain stable and he is feeling better. He will need PT. Chest clear. Irreg/irreg. Continue IV dobutamine and diuretics. Hopefully in a couple more days the dobutamine can be stopped and he can switch to po meds. jossie
[2019-08-30] MEDS: Acetaminophen 325 MG TAB PO PRN (17:57)
[2019-08-31 04:43] LABS: ALT (SGPT) 37 U/L (8-55); AST (SGOT) 29 U/L (5-34); Albumin 3.5 g/dL (3.4-4.8); Alkaline Phosphatase 68 U/L (40-110); BUN (Urea Nitrogen) 19 mg/dL (8.4-25.7); Bilirubin, Total 1.7 mg/dL (0.2-1.2); Calc. Creatinine Clearance 109 mL/min (70-130); Calcium 8.5 mg/dL (7.8-10.44); Estimated GFR-MDRD 63; Globulin 2.5 g/dL (2.4-3.5); Glucose 105 mg/dL (83-110)
[2019-08-31 04:45] LABS: #Basophils 0.2 thou/uL (0.0-0.2); #Eosinphils 0.1 thou/uL (0.0-0.7); #Monocytes 0.8 thou/uL (0.11-0.59); #Neutrophils 5.5 thou/uL (1.40-6.50); %Basophils 2.5 % (0.0-1.0); %Eosinophils 1.8 % (0.0-10.0); %Lymphocytes 13.2 % (21.0-51.0); %Monocytes 10.4 % (0.0-10.0); %Neutrophils 72.1 % (42.0-75.0); Hemoglobin 9.5 g/dL (14.0-18.0); Mean Corpuscular HGB CONC 28.7 g/dL (32.0-36.0); Mean Corpuscular Hemoglobin 22.1 pg (27.0-31.0); Mean Corpuscular Volume 76.9 fL (78.0-98.0); Mean Platelet Volume 11.3 fL (7.4-10.4); Platelet Count 114 thou/uL (130-400); Platelet Morphology Comment Appears Decreased; Red Blood Cell (RBC) Count 4.28 mill/uL (4.70-6.10); White Blood Cell (WBC) Count 7.6 thou/uL (4.8-10.8)
[2019-08-31 04:53] LABS: Chloride 93 mmol/L (98-107); Potassium 3.5 mmol/L (3.5-5.1); Sodium 138 mmol/L (136-145)
[2019-08-31 04:56] LABS: Anion Gap 12 mmol/L (10-20); Carbon Dioxide 37 mmol/L (23-31)
--- NOTE | 2019-08-31 05:29 | PDOC.FM ---
- Subjective Subjective: Medically, Mr. Rodgers, is doing well this morning. He has complaints in regards to the beeping of his IV pump, the light switch not working, and the frequent disturbances throughout the night. - Objective MAR Reviewed: Yes Vital Signs & Weight: Vital Signs (12 hours) Temp Pulse Resp BP BP Pulse Ox 08/31/19 03:30 97.8 F 101 H 20 99/57 L 92 L 08/30/19 20:00 99.3 F 113 H 18 109/55 L 92 L 08/30/19 19:17 107 H 18 97 Weight Admit Weight 167.013 kg Weight 144.923 kg Most Recent Monitor Data Heart Rate from ECG 114 NIBP 114/54 NIBP BP-Mean 74 Respiration from ECG 15 SpO2 94 I&O: 08/29/19 08/30/19 08/31/19 06:59 06:59 06:59 Intake Total 586 1440 480 Output Total 4889 6649 5080 [phone] Result Diagrams: 08/31/19 04:02 08/31/19 04:02 Phys Exam - Physical Examination Constitutional: NAD HEENT: PERRLA, moist MMs Neck: supple, full ROM Respiratory: no wheezing, no rales, no rhonchi, clear to auscultation bilateral Cardiovascular: no significant murmur, no rub Tachycardic, atrial fibrillation Gastrointestinal: soft, non-tender Musculoskeletal: pulses present, edema present (2+ at the ankle. significantly improving. ) Neurological: non-focal, moves all 4 limbs Psychiatric: normal affect, A&O x 3 Skin: no rash, normal turgor Dx/Plan (1) Acute on chronic congestive heart failure Code(s): I50.9 - HEART FAILURE, UNSPECIFIED Status: Acute (2) Urinary retention with incomplete bladder emptying Code(s): R33.9 - RETENTION OF URINE, UNSPECIFIED Status: Acute (3) Acute and chronic respiratory failure with hypoxia Code(s): J96.21 - ACUTE AND CHRONIC RESPIRATORY FAILURE WITH HYPOXIA Status: Acute (4) Acute respiratory failure with hypercapnia Code(s): J96.02 - ACUTE RESPIRATORY FAILURE WITH HYPERCAPNIA Status: Acute (5) Atrial fibrillation Code(s): I48.91 - UNSPECIFIED ATRIAL FIBRILLATION Status: Acute Qualifiers: Atrial fibrillation type: unspecified Qualified Code(s): I48.91 - Unspecified atrial fibrillation (6) CKD (chronic kidney disease) Code(s): N18.9 - CHRONIC KIDNEY DISEASE, UNSPECIFIED Status: Chronic Qualifiers: (7) MAY (obstructive sleep apnea) Code(s): G47.33 - OBSTRUCTIVE SLEEP APNEA (ADULT) (PEDIATRIC) Status: Suspected - Plan Plan: Acute on Chronic HFrEF - Cardiology consulted, appreciate recommendations. They have added dobuatmine, bumex, and dig. He has been persistently tachycardic on dobutamine drip. - Strict I's/O's and UOP with daily weights. Elevate legs while in bed, encourage PT and ambulating. - Holding BB and CHETAN 2/2 dobutamine and renal function - Patient is approaching euvolemia. We will await cardiology recommendations for the discontinuation of dobutamine and transition to oral diuretics. - Patient is down a calculated total of 25.346L since admission. Hypokalemia - Added 20meq K-dur BID WM Hypercapnic respiratory failure, resolved - Pulmonology consulted, appreciate recommendations. Dr. Sandoval: intermittent home CPAP as needed. Added nebs and mucinex Acute on Chronic Respiratory Failure with hypoxia, resolved COPD - O2 supplementation as needed, CPAP at night 2/2 MAY. Uses 2L at home - See above Hyperbilirubinemia - Likely hepatic congestion. Stable, will cont to monitor. CKD III - Cr improved with dobutamine drip - Cont to monitor with diuresis. A-fib, Rhythm and rate-controlled - CHADSVASc 4, HASBLED 3 - history of GI bleed on anticoagulation and thus has been discontinued at previous admission - Now in sinus. On digoxin. Holding BB 2/2 dobutamine. Cont to monitor and adjust medications prn - Appreciate cardiology recommendations Chronic, microcytic anemia - S/p iron infusion, will cont oral replacement. HTN - continue home regimen - Hold norvasx 2/2 LE edema at this time, holding lisinopril 2/2 renal function BPH with acute obstruction, guadalupe placed by urology - Recommended keeping in place until DC'd by them - cont home flomax Code: Full IVF: SL Diet: HH, Lo Na, fluid restriction VTE: Lovenox PCP: Dr. Samson Disposition: stable, inpatient. Addendum - Attending - Attending Attestation Date/Time: 08/31/192136 I personally evaluated the patient and discussed the management with Dr. Fu. I agree with the History, Examination, Assessment and Plan documented above with any addition or exceptions noted below. The patient's IV has been beeping and this is quite irritating. He has diuresed over 25 liters during this stay. He remains on dobutamine and diuretics.
[2019-08-31] MEDS: Bumetanide 1 MG/4 ML VIAL IVP SCH ×2 (06:07→15:37)
--- NOTE | 2019-08-31 08:06 | PRG ---
DATE OF SERVICE: 08/31/2019 SUBJECTIVE: The patient feeling better. OBJECTIVE: VITAL SIGNS: Stable. Urine output 3.4 L. He is negative 2.9 L. His admitting weight is 368, it is impressive that his weight is 319 with aggressive diuresis. ABDOMEN: Soft, nontender, and nondistended. Obese. GENITOURINARY: Noel catheter adequately secured with clear dilute urine. LABORATORY DATA: Creatinine 0.1. IMPRESSION AND PLAN: 1. Mr. Rodgers is a 78-year-old male with history of congestive heart failure, chronic obstructive pulmonary disease exacerbation. 2. History of bladder cancer, in remission. Recent cystoscopy negative. 3. History of benign prostatic hyperplasia, mild. 4. History of false passage in the remote past, required dilatation at bedside. 5. Recent cystoscopy demonstrating nonobstructing urethral stricture. 6. The patient has not had significant retention recent, however, developed urinary retention on this admission due to aggressive diuresis and deconditioned status. Continue indwelling Noel catheter, as he remains on IV diuretics. When he transitioned to p.o., voiding trial to be initiated by KARMA. Job ID: [id number] [facility]
[2019-08-31] MEDS: Ferrous Sulfate 325 MG TAB PO SCH (08:47)
[2019-08-31] MEDS: Aspirin Chewable 81 MG TAB PO SCH (08:48)
[2019-08-31] MEDS: Digoxin 0.25 MG TAB PO SCH (08:48)
[2019-08-31] MEDS: Potassium Chloride 20 MEQ TAB PO SCH ×2 (08:48→17:52)
[2019-08-31] MEDS: Multivit, Therapeutic 1 TAB PO SCH (08:50)
[2019-08-31] MEDS: Enoxaparin Sodium 40 MG/0.4 ML SYRINGE SC SCH (08:50)
[2019-08-31] MEDS: guaiFENesin ER 600 MG TAB PO SCH ×2 (08:50→20:12)
--- NOTE | 2019-08-31 08:50 | PDOC.CPN ---
- Subjective Date: 08/31/19 Time: 08:52 Interval history: The pt seen and examined. No overnight events. No cardiac complaints. - Objective Allergies/Adverse Reactions: Allergies Allergy/AdvReac Type Severity Reaction Status Date / Time No Known Drug Allergies Allergy Verified 08/03/18 08:42 Visit Medications: Current Medications Acetaminophen (Tylenol) 650 mg PO Q4H PRN PRN Reason: Headache/Fever/Mild Pain (1-3) Last Admin: 08/30/19 17:57 Dose: 650 mg Albuterol/Ipratropium (Duoneb) 3 ml NEB [id number] [facility] Last Admin: 08/31/19 07:36 Dose: 3 ml Aspirin (A[facility]in Chewable) [facility] Last Admin: 08/30/19 09:25 Dose: 81 mg Bumetanide (Bumex) 2 mg IVP 0600,1400 [facility] Last Admin: 08/31/19 06:07 Dose: 2 mg Digoxin (Lanoxin) 0.25 mg PO DAILY [facility] Last Admin: 08/30/19 09:24 Dose: 0.25 mg Enoxaparin Sodium (Lovenox) 40 mg SC 0900 [facility] Last Admin: 08/30/19 09:26 Dose: 40 mg Ferrous Sulfate (Feosol) 325 mg PO QAM-[facility] Last Admin: 08/30/19 09:25 Dose: 325 mg Guaifenesin (Mucinex) 1,200 mg PO Q12HR [facility] Last Admin: 08/30/19 21:16 Dose: 1,200 mg Dobutamine HCl/Dextrose (Dobutamine 500 Mg/250 Ml) 250 mls @ 24.589 mls/hr IVPB INF [facility]; Protocol Last Admin: 08/30/19 23:55 Dose: 250 mls Multivitamins (Theragran) 1 tab PO DAILY [facility] Last Admin: 08/30/19 09:25 Dose: 1 tab Ondansetron HCl (Zofran Odt) 4 mg PO Q6H PRN PRN Reason: Nausea/Vomiting Polyethylene Glycol (Miralax) 17 gm PO DAILYPRN PRN PRN Reason: Constipation Last Admin: 08/29/19 12:31 Dose: 17 gm Potassium Chloride (K-Dur) 20 meq PO BID-[facility] Last Admin: 08/30/19 17:57 Dose: 20 meq Sodium Chloride (Flush - Normal Saline) 10 ml IVF Q12HR [facility] Last Admin: 08/30/19 21:16 Dose: 10 ml Sodium Chloride (Flush - Normal Saline) 10 ml IVF PRN PRN PRN Reason: Saline Flush Last Admin: 08/25/19 05:25 Dose: 10 ml Tamsulosin HCl (Flomax) 0.4 mg PO QAM [facility] Last Admin: 08/30/19 09:25 Dose: 0.4 mg Vital Signs & Weight: Vital Signs Temp Pulse Resp BP BP Pulse Ox 08/31/19 07:37 97 08/31/19 07:36 104 H 16 97 08/31/19 07:05 97 F L 104 H 133/85 100 08/31/19 03:30 97.8 F 101 H 20 99/57 L 92 L Admit Weight 368 lb 3.2 oz Weight 321 lb - Physical Exam General: alert & oriented x3 HEENT: mucus membranes moist Neck: supple neck Cardiac: irregularly regular Lungs: decreased breath sounds, wheezes Neuro: cranial nerve 2-12 intact Extremities: other: (2-3+ pitting BLE edema) - Labs Result Diagrams: 08/31/19 04:02 08/31/19 04:02 Troponin/CKMB CK-MB (CK-2) 2.8 ng/mL (0-6.6) 08/21/19 12:40 Troponin I 0.010 ng/mL (< 0.028) 08/21/19 19:37 - Telemetry Supraventricular conduction: atrial fibrillation - Assessment/Plan Assessment/Plan: 1. Acute on chronic combined HF - stable with Dobutamin drip; his outpt was around 1700ml yesterday from > 4500ml on 08/30/2019; holding Coreg since he is on Dobutamin drip; not on CHETAN/ARB due to hx of CKD 2. COPD exacerbation - managed by pulmonology service 3. Chronic afib - stable HR with Digoxin; off BBlocker for now; ASA due to hx of Anemia and high risk of falls 4. HTN - stable 5. CKD stage 3 - stable 6. Sleep apnea with Cpap at HS 7. Anemia - unchanged 8. Obese - weight management education with regular exercise given to the pt and family MAR reviewed * Echo on 08/22/2019 with EF 40-45% (50-55% in 09/2017) mild ERV, mild ERA, mild MR, TR, and CT Pt. seen and eval. by me. He is still diuresing. chest clear. irreg/irreg. rhythm. I agree with the a/P by the CUPOLA HOIST OPERATOR. hopefully will start po meds tomorrow and taper off dobutamine. nai
[2019-08-31] MEDS: Tamsulosin HCl 0.4 MG CAP PO SCH (08:51)
[2019-08-31] MEDS: DOBUTamine 500 mg/250 ml 250 ML IVPB SCH ×2 (10:12→22:56)
--- NOTE | 2019-08-31 16:08 | PRG ---
DATE OF SERVICE: 08/31/2019 Quintin Rodgers continues to diurese. He is tolerating it from a blood pressure standpoint, this morning is 155/76, respiratory rates in the 20s, heart rate is 107. He is afebrile. Intake and output coming in today was another 2870 mL. His weights are not accurate in my opinion, but he has gone from an admission weight of 368 to 321. He has lost probably 4 to 10 pounds a day given that water weighs 2.2 pounds per 1000 mL. Unfortunately, the bed scales and floor scales are not accurate, but as long as documenting that he is in a negative fluid balance and his renal function did not compromise fine. His BUN still only 19 with a creatinine of 1.13 today. We will continue to follow. His COPD and asthma are stable. His sleep apnea is stable. He is still wearing his home adaptive Servo ventilator at night. Job ID: [id number]
[2019-09-01] MEDS: Acetaminophen 325 MG TAB PO PRN ×2 (04:49→20:12)
[2019-09-01 05:12] LABS: ALT (SGPT) 36 U/L (8-55); AST (SGOT) 30 U/L (5-34); Albumin 3.4 g/dL (3.4-4.8); Alkaline Phosphatase 68 U/L (40-110); BUN (Urea Nitrogen) 20 mg/dL (8.4-25.7); Bilirubin, Total 1.4 mg/dL (0.2-1.2); Calc. Creatinine Clearance 112 mL/min (70-130); Calcium 8.7 mg/dL (7.8-10.44); Estimated GFR-MDRD 65; Globulin 2.8 g/dL (2.4-3.5); Glucose 109 mg/dL (83-110); Protein, Total 6.2 g/dL (5.8-8.1)
[2019-09-01 05:21] LABS: Anion Gap 11 mmol/L (10-20); Carbon Dioxide 39 mmol/L (23-31); Chloride 94 mmol/L (98-107); Potassium 4.2 mmol/L (3.5-5.1); Sodium 140 mmol/L (136-145)
[2019-09-01] MEDS: Bumetanide 1 MG/4 ML VIAL IVP SCH ×2 (06:09→14:12)
--- NOTE | 2019-09-01 08:00 | PRG ---
DATE OF SERVICE: 09/01/2019 SUBJECTIVE: No new complaints. Cardiopulmonary records reviewed. OBJECTIVE: VITAL SIGNS: Stable. He is afebrile. He is negative 3.8 L, 5.3 L diuresed yesterday. ABDOMEN: Morbidly obese, protuberant. GENITOURINARY: Noel catheter adequately secured with dilute urine. EXTREMITIES: Decreased lower extremity pitting edema and anasarca. LABORATORY DATA: Labs are stable. IMPRESSION AND PLAN: 1. Mr. Rodgers is a 78-year-old male, admitted for congestive heart failure, chronic obstructive pulmonary disease exacerbation. 2. History of bladder cancer, in remission. 3. Remote history of traumatic Noel catheter placement, false passage, requiring cystoscopic assist for Noel. 4. Recent cystoscopy demonstrates no evidence of significant obstructive urethral stricture, no evidence of bladder tumor recurrence. Recently seen in office with no significant PVR. Current PVR of 1.1 L with aggressive diuresis and deconditioning. Continue Flomax with history of BPH. Long discussion with the patient and family regarding his clinical course. He continues to be aggressively diuresed, with large urine output. Per Cardiology, may be transitioning to oral diuretics today. patient and do not feel comfortable discharging over the weekend, consider cardiac rehab. I anticipate patient will be in-house over the weekend, therefore leave Noel catheter in situ. If the patient is deemed clinically stable to be discharged over the weekend , can initiate a voiding trial, if significant PVR on bladder scan over 200 mL, he can be discharged home or to rehab with an indwelling Noel catheter. The patient has my office phone number or may call me if he is discharged with indwelling Noel catheter for close followup with . DR Johnson covering me this weekend if needed. Job ID: [id number] [facility]
[2019-09-01] MEDS: Tamsulosin HCl 0.4 MG CAP PO SCH (08:35)
[2019-09-01] MEDS: Digoxin 0.25 MG TAB PO SCH (08:35)
[2019-09-01] MEDS: Aspirin Chewable 81 MG TAB PO SCH (08:35)
[2019-09-01] MEDS: Enoxaparin Sodium 40 MG/0.4 ML SYRINGE SC SCH (08:35)
[2019-09-01] MEDS: Potassium Chloride 20 MEQ TAB PO SCH ×2 (08:35→16:51)
[2019-09-01] MEDS: guaiFENesin ER 600 MG TAB PO SCH ×2 (08:35→20:11)
[2019-09-01] MEDS: Ferrous Sulfate 325 MG TAB PO SCH (08:35)
[2019-09-01] MEDS: Multivit, Therapeutic 1 TAB PO SCH (08:40)
--- NOTE | 2019-09-01 08:45 | PDOC.FM ---
- Subjective Subjective: Mr. Rodgers is doing well this morning. He slept better last night. He is getting up with PT but not getting up on his own. We discussed rehab today. - Objective MAR Reviewed: Yes Vital Signs & Weight: Vital Signs (12 hours) Temp Pulse Resp BP BP Pulse Ox 09/01/19 07:05 98.4 F 99 20 126/62 95 09/01/19 04:00 97.8 F 99 18 112/67 96 Weight Admit Weight 167.013 kg Weight 146.238 kg Most Recent Monitor Data Heart Rate from ECG 114 NIBP 114/54 NIBP BP-Mean 74 Respiration from ECG 15 SpO2 94 I&O: 08/31/19 09/01/19 09/02/19 06:59 06:59 06:59 Intake Total 1280 1500 Output Total 4150 5300 Balance -2870 -3800 Result Diagrams: 08/31/19 04:02 09/01/19 04:21 Phys Exam - Physical Examination Constitutional: NAD HEENT: PERRLA, moist MMs Neck: no JVD, supple Respiratory: no wheezing, no rales, no rhonchi, clear to auscultation bilateral Cardiovascular: no significant murmur, no rub Irregular. Atrial fibrillation on tele monitor. (Since at least 08/28) (contrary to my previous documentation, this is a correction.) Gastrointestinal: soft, non-tender Musculoskeletal: edema present 2+ at the ankle. Neurological: non-focal, moves all 4 limbs Psychiatric: normal affect, A&O x 3 Skin: no rash, normal turgor Dx/Plan (1) Acute on chronic congestive heart failure Code(s): I50.9 - HEART FAILURE, UNSPECIFIED Status: Acute (2) Urinary retention with incomplete bladder emptying Code(s): R33.9 - RETENTION OF URINE, UNSPECIFIED Status: Acute (3) Acute and chronic respiratory failure with hypoxia Code(s): J96.21 - ACUTE AND CHRONIC RESPIRATORY FAILURE WITH HYPOXIA Status: Acute (4) Acute respiratory failure with hypercapnia Code(s): J96.02 - ACUTE RESPIRATORY FAILURE WITH HYPERCAPNIA Status: Acute (5) Atrial fibrillation Code(s): I48.91 - UNSPECIFIED ATRIAL FIBRILLATION Status: Acute Qualifiers: Atrial fibrillation type: unspecified Qualified Code(s): I48.91 - Unspecified atrial fibrillation (6) CKD (chronic kidney disease) Code(s): N18.9 - CHRONIC KIDNEY DISEASE, UNSPECIFIED Status: Chronic Qualifiers: (7) MAY (obstructive sleep apnea) Code(s): G47.33 - OBSTRUCTIVE SLEEP APNEA (ADULT) (PEDIATRIC) Status: Suspected - Plan Plan: Acute on Chronic HFrEF - Cardiology consulted, appreciate recommendations. They have added dobuatmine, bumex, and dig. He has been persistently tachycardic on dobutamine drip. - Strict I's/O's and UOP with daily weights. Elevate legs while in bed, encourage PT and ambulating. - Holding BB and CHETAN 2/2 dobutamine and renal function - Patient is approaching euvolemia. We will await cardiology recommendations for the discontinuation of dobutamine and transition to oral diuretics. - Will place rehab screen this morning, for potential d/c planning. Hypokalemia - Added 20meq K-dur BID WM Hypercapnic respiratory failure, resolved - Pulmonology consulted, appreciate recommendations. Dr. Sandoval: intermittent home CPAP as needed. Added nebs and mucinex Acute on Chronic Respiratory Failure with hypoxia, resolved COPD - O2 supplementation as needed, CPAP at night 2/2 MAY. Uses 2L at home - See above Hyperbilirubinemia - Likely hepatic congestion. Stable, will cont to monitor. CKD III - Cr improved with dobutamine drip - Cont to monitor with diuresis. A-fib, Rhythm and rate-controlled - CHADSVASc 4, HASBLED 3 - history of GI bleed on anticoagulation and thus has been discontinued at previous admission - Has been in atrial fibrillation, but rate controlled during his hospitalization. - Appreciate cardiology recommendations Chronic, microcytic anemia - S/p iron infusion, will cont oral replacement. HTN - continue home regimen - Hold norvasx 2/2 LE edema at this time, holding lisinopril 2/2 renal function BPH with acute obstruction, guadalupe placed by urology - Recommended keeping in place until DC'd by them - cont home flomax Code: Full IVF: SL Diet: HH, Lo Na, fluid restriction VTE: Lovenox PCP: Dr. Samson Disposition: stable, inpatient. Addendum - Attending - Attending Attestation Date/Time: 09/01/19 1331 I personally evaluated the patient and discussed the management with Dr. Fu. I agree with the History, Examination, Assessment and Plan documented above with any addition or exceptions noted below. The patient is doing well today. Inpt rehab consult place.d He remains on dobutamine. Continue diuresis.
--- NOTE | 2019-09-01 08:50 | PDOC.CPN ---
- Subjective Date: 09/01/19 Time: 09:00 Interval history: The pt seen and examined. No overnight events. No cardiac complaints. His total urine output so far is > 32,000cc. - Objective Allergies/Adverse Reactions: Allergies Allergy/AdvReac Type Severity Reaction Status Date / Time No Known Drug Allergies Allergy Verified 08/03/18 08:42 Visit Medications: Current Medications Acetaminophen (Tylenol) 650 mg PO Q4H PRN PRN Reason: Headache/Fever/Mild Pain (1-3) Last Admin: 09/01/19 04:49 Dose: 650 mg Albuterol/Ipratropium (Duoneb) 3 ml NEB [id number] SCH Last Admin: 08/31/19 19:18 Dose: 3 ml Aspirin (Aspirin Chewable) 81 mg PO [facility] Last Admin: 09/01/19 08:35 Dose: 81 mg Bumetanide (Bumex) 2 mg IVP 0600,1400 [facility] Last Admin: 09/01/19 06:09 Dose: 2 mg Digoxin (Lanoxin) 0.25 mg PO DAILY [facility] Last Admin: 09/01/19 08:35 Dose: 0.25 mg Enoxaparin Sodium (Lovenox) 40 mg SC 0900 [facility] Last Admin: 09/01/19 08:35 Dose: 40 mg Ferrous Sulfate (Feosol) 325 mg PO QA-[facility] Last Admin: 09/01/19 08:35 Dose: 325 mg Guaifenesin (Mucinex) 1,200 mg PO Q12HR [facility] Last Admin: 09/01/19 08:35 Dose: 1,200 mg Dobutamine HCl/Dextrose (Dobutamine 500 Mg/250 Ml) 250 mls @ 24.589 mls/hr IVPB INF [facility]; Protocol Last Admin: 08/31/19 22:56 Dose: 250 mls Multivitamins (Theragran) 1 tab PO DAILY [facility] Last Admin: 09/01/19 08:40 Dose: 1 tab Ondansetron HCl (Zofran Odt) 4 mg PO Q6H PRN PRN Reason: Nausea/Vomiting Polyethylene Glycol (Miralax) 17 gm PO DAILYPRN PRN PRN Reason: Constipation Last Admin: 08/29/19 12:31 Dose: 17 gm Potassium Chloride (K-Dur) 20 meq PO BID-[facility] Last Admin: 09/01/19 08:35 Dose: 20 meq Sodium Chloride (Flush - Normal Saline) 10 ml IVF Q12HR [facility] Last Admin: 09/01/19 08:36 Dose: 10 ml Sodium Chloride (Flush - Normal Saline) 10 ml IVF PRN PRN PRN Reason: Saline Flush Last Admin: 08/25/19 05:25 Dose: 10 ml Tamsulosin HCl (Flomax) 0.4 mg PO QAM [facility] Last Admin: 09/01/19 08:35 Dose: 0.4 mg Vital Signs & Weight: Vital Signs Temp Pulse Resp BP BP Pulse Ox 09/01/19 07:05 98.4 F 99 20 126/62 95 09/01/19 04:00 97.8 F 99 18 112/67 96 Admit Weight 368 lb 3.2 oz Weight 322 lb 6.4 oz - Physical Exam General: alert & oriented x3 HEENT: mucus membranes moist Neck: supple neck Cardiac: irregularly regular Lungs: decreased breath sounds, wheezes Neuro: cranial nerve 2-12 intact Extremities: other: (2+ pitting BLE edema) - Labs Result Diagrams: 08/31/19 04:02 09/01/19 04:21 Troponin/CKMB CK-MB (CK-2) 2.8 ng/mL (0-6.6) 08/21/19 12:40 Troponin I 0.010 ng/mL (< 0.028) 08/21/19 19:37 - Telemetry Supraventricular conduction: atrial fibrillation - Assessment/Plan Assessment/Plan: 1. Acute on chronic combined HF - stable with Dobutamin drip; his outpt was > 5300 ml on 08/31/2019; Total negative > 32,000 cc so far; holding Coreg since he is on Dobutamin drip; not on CHETAN/ARB due to hx of CKD 2. COPD exacerbation - he has been Home O2 PRN at home; managed by pulmonology service 3. Chronic afib - stable HR with Digoxin; off BBlocker for now; ASA due to hx of Anemia and high risk of falls 4. HTN - stable 5. CKD stage 3 - stable 6. Sleep apnea with Cpap at HS 7. Anemia - unchanged 8. Obese - weight management education with regular exercise given to the pt and family MAR reviewed * Echo on 08/22/2019 with EF 40-45% (50-55% in 09/2017) mild ERV, mild ERA, mild MR, TR, and IA Pt. seen and eval. by me. I agree with the A/P by rthe [employer] RE[employer]ER. Continue IV dobutamine and bumex until edema resolved, then po meds.
[2019-09-01] MEDS: DOBUTamine 500 mg/250 ml 250 ML IVPB SCH ×2 (09:46→20:35)
[2019-09-01] MEDS ORDERED: AcetaZOLAMIDE 250 MG TAB PO SCH (11:15)
--- NOTE | 2019-09-01 11:28 | PRG ---
DATE OF SERVICE: 09/01/2019 OBJECTIVE: VITAL SIGNS: Quintin Rodgers continues to diurese. His blood pressure is tolerating it. He is afebrile. Blood pressure is 126/62, heart rate is in the 90s. Oximetry is in the mid 90s on 3L. LUNGS: Remarkable for end-expiratory wheezes this morning, but he just received a breathing treatment. HEART: Regular rhythm. ABDOMEN: Soft. LABORATORY DATA: White count yesterday was normal. Electrolytes today were normal with the exception of an elevated bicarb which likely is related to diuresis. IMPRESSION: Volume overload, improving with significant daily diuresis. We will give him a dose of Diamox today. We will continue to follow. His chronic obstructive pulmonary disease and asthma are clinically stable. Job ID: [id number]
[2019-09-02 04:39] LABS: ALT (SGPT) 33 U/L (8-55); AST (SGOT) 25 U/L (5-34); Albumin 3.5 g/dL (3.4-4.8); Alkaline Phosphatase 70 U/L (40-110); Anion Gap 11 mmol/L (10-20); BUN (Urea Nitrogen) 21 mg/dL (8.4-25.7); Bilirubin, Total 1.2 mg/dL (0.2-1.2); Calc. Creatinine Clearance 111 mL/min (70-130); Calcium 8.7 mg/dL (7.8-10.44); Carbon Dioxide 34 mmol/L (23-31); Chloride 97 mmol/L (98-107); Estimated GFR-MDRD 63; Globulin 2.6 g/dL (2.4-3.5); Glucose 103 mg/dL (83-110); Potassium 3.3 mmol/L (3.5-5.1); Protein, Total 6.1 g/dL (5.8-8.1); Sodium 139 mmol/L (136-145)
[2019-09-02] MEDS: Bumetanide 1 MG/4 ML VIAL IVP SCH ×2 (05:27→14:12)
[2019-09-02] MEDS ORDERED: Potassium Chloride 20 MEQ TAB PO SCH (06:15)
--- NOTE | 2019-09-02 06:18 | PDOC.FM ---
- Subjective Subjective: Patient was resting comfortably in his hospital bed with his present at the time of evaluation. He denied any acute overnight events. Per Nursing staff, he continues to diuresis large follows of urine (>1) following each administration of Bumex. - Objective Vital Signs & Weight: Vital Signs (12 hours) Temp Pulse Resp BP BP Pulse Ox 09/02/19 03:37 97.6 F 67 20 129/63 94 L 09/02/19 00:00 101 H 18 99/58 L 97 09/01/19 20:00 97.5 F L 81 16 127/63 97 09/01/19 19:47 84 14 95 Weight Admit Weight 167.013 kg Weight 141.475 kg Most Recent Monitor Data Heart Rate from ECG 114 NIBP 114/54 NIBP BP-Mean 74 Respiration from ECG 15 SpO2 94 I&O: 08/31/19 09/01/19 09/02/19 06:59 06:59 06:59 Intake Total 1280 1500 480 Output Total 4150 5300 2200 Balance -2870 -3800 -1720 Result Diagrams: 08/31/19 04:02 09/02/19 03:52 Phys Exam - Physical Examination Constitutional: NAD HEENT: moist MMs, sclera anicteric, oral pharynx no lesions Neck: supple, full ROM Respiratory: no wheezing, no rales, no rhonchi, clear to auscultation bilateral Cardiovascular: RRR, no significant murmur, no rub Gastrointestinal: no distention, positive bowel sounds Musculoskeletal: pulses present Resolving LE edema - currently +1 bilaterally, no signs of erythema Neurological: non-focal, moves all 4 limbs Psychiatric: normal affect, A&O x 3 Skin: no rash Dx/Plan - Plan Plan: Patient is a 78 y/o male who presents to the hospital for evaluation of "fluid retention." Acute on Chronic HFrEF - Cardiology consulted, appreciate recommendations. They have added dobuatmine, bumex, and dig. He has been persistently tachycardic on dobutamine drip. - Strict I's/O's and UOP with daily weights. Elevate legs while in bed, encourage PT and ambulating. - Holding BB and CHETAN 2/2 dobutamine and renal function - Patient is approaching euvolemia - > 32L diuresis since admission - Will await Cardiology recommendations for DC of Dobutamine and eventual transition PO diuretics - Will place rehab screen this morning, for potential d/c planning. Hypokalemia - Added 20meq K-dur BID WM Hypercapnic respiratory failure, resolved - Pulmonology consulted, appreciate recommendations. Dr. Sandoval: intermittent home CPAP as needed. Added nebs and mucinex Acute on Chronic Respiratory Failure with hypoxia, resolved COPD - O2 supplementation as needed, CPAP at night 2/2 MAY. Uses 2L at home - See above Hyperbilirubinemia - Likely hepatic congestion. Stable, will cont to monitor. CKD III - Cr: 1.12 on 09/02 - improved since admission w/ Dobutamine ggt - Will continue to monitor A-Fib, Rhythm and Rate-Controlled - CHADSVASc: 4 - HASBLED: 3 - Hx of GI Bleed on Anticoagulation and thus has been DC's at previous admission - Has been in A-Fib since admission, but rate-controlled - Cardiology: Consulted - recs appreciated Microcytic Anemia, Chronic - S/p Iron infusion - Will continue PO replacement HTN - 129/63 on 09/03 - Holding Norvasc 2/2 LE edema at this time - Holding Lisinopril 2/2 renal function BPH with Acute Obstruction, - Noel replaced by Urology - recommended keeping in place until DC'd by them as an outpatient - Continue home Tamsulosin regimen Code: Full IVF: SL Diet: HH w/ Low [place], Fluid Restriction (1200 ml/day) VTE: Lovenox PCP: Dr. Samson Dispo: Patient is currently admitted to the Telemetry Floor for ongoing fluid diuresis for Acute on Chronic CHF Exacerbation. Continue Dobutamine ggt, per Cardiology recs. Expected LOS > 48H. Addendum - Attending - Attending Attestation Date/Time: 09/02/19 2087 I personally evaluated the patient and discussed the management with Dr. Avitia. I agree with the History, Examination, Assessment and Plan documented above with any addition or exceptions noted below. The patient's IV with dobutamine infiltrated overnight. Ice packs were applied and pt was given phentolamine sc. He continues to diurese. Adjusted frequency of bp checks.
[2019-09-02] MEDS ORDERED: Phentolamine Mesylate 5 MG VIAL SC SCH (06:45)
[2019-09-02] MEDS: DOBUTamine 500 mg/250 ml 250 ML IVPB SCH ×2 (07:15→18:32)
[2019-09-02] MEDS: Potassium Chloride 20 MEQ TAB PO SCH ×2 (07:17→17:22)
[2019-09-02] MEDS: Digoxin 0.25 MG TAB PO SCH (09:31)
[2019-09-02] MEDS: Ferrous Sulfate 325 MG TAB PO SCH (09:31)
[2019-09-02] MEDS: Tamsulosin HCl 0.4 MG CAP PO SCH (09:32)
[2019-09-02] MEDS: Aspirin Chewable 81 MG TAB PO SCH (09:32)
[2019-09-02] MEDS: guaiFENesin ER 600 MG TAB PO SCH ×2 (09:32→20:14)
[2019-09-02] MEDS: Multivit, Therapeutic 1 TAB PO SCH (09:35)
[2019-09-02] MEDS: Enoxaparin Sodium 40 MG/0.4 ML SYRINGE SC SCH (09:35)
--- NOTE | 2019-09-02 23:10 | PRG ---
DATE OF SERVICE: SERVICE: Pulmonary Medicine. INTERVAL HISTORY: Patient is doing really well from respiratory standpoint. He is talking in full sentences and denies having any shortness of breath. It is really how much his lower extremity swelling has improved since he has been in the hospital over these past 12 days. He denies any current fevers or chills. There has been no interval overnight events. PHYSICAL EXAMINATION: VITAL SIGNS: Afebrile, pulse 74, respirations 19, and saturation 98% on room air. GENERAL: Patient is awake and alert, in no apparent distress. LUNGS: Decent air entry. Crackles are present. No prolonged expiratory phase or wheezing is appreciated. HEART: Normal rate. Regular. ABDOMEN: Soft, nontender, and nondistended. Bowel sounds are positive. MUSCULOSKELETAL: No cyanosis or clubbing. There is 2+ pitting in the bilateral lower extremities. NEUROLOGIC: Grossly nonfocal. LABORATORY DATA: Potassium 3.3, creatinine 1.12. Bicarb 34. Basic metabolic profile and liver function studies are otherwise unremarkable. Total bilirubin is downtrending to 1.2. Urine culture is negative to date. ASSESSMENT: 1. Acute on chronic hypoxic and hypercapnic respiratory failure. 2. Chronic obstructive pulmonary disease without current exacerbation. 3. Chronic systolic and diastolic heart failure. 4. Atrial fibrillation. DISCUSSION AND PLAN: Patient is doing great from respiratory standpoint. We will continue to diurese him gently down to euvolemia. Pulmonary/Critical Care will continue to follow, intermittently during this hospital stay. Potassium will be replaced. Job ID: [id number]
[2019-09-03] MEDS: DOBUTamine 500 mg/250 ml 250 ML IVPB SCH ×2 (03:53→17:17)
[2019-09-03 05:10] LABS: Anion Gap 12 mmol/L (10-20); BUN (Urea Nitrogen) 25 mg/dL (8.4-25.7); Calc. Creatinine Clearance 96 mL/min (70-130); Carbon Dioxide 32 mmol/L (23-31); Chloride 98 mmol/L (98-107); Estimated GFR-MDRD 56; Glucose 110 mg/dL (83-110); Magnesium 2.4 mg/dL (1.6-2.6); Potassium 3.7 mmol/L (3.5-5.1); Sodium 138 mmol/L (136-145)
[2019-09-03] MEDS: Bumetanide 1 MG/4 ML VIAL IVP SCH ×2 (06:06→13:51)
--- NOTE | 2019-09-03 06:16 | PDOC.FM ---
- Subjective Subjective: Patient was sitting up in bed with his present at the time of evaluation. The patient reported no acute overnight events such as chest pain or worsening SOB. - Objective Vital Signs & Weight: Vital Signs (12 hours) Temp Pulse Resp BP BP Pulse Ox 09/03/19 04:47 95 09/03/19 03:48 98.1 F 94 16 138/81 95 09/03/19 00:12 92 L 09/02/19 23:24 98.5 F 105 H 16 146/72 H 92 L 09/02/19 20:45 98 09/02/19 20:20 97.8 F 107 H 18 147/73 H 98 09/02/19 19:50 110 H 14 99 Weight Admit Weight 167.013 kg Weight 141.294 kg Most Recent Monitor Data Heart Rate from ECG 114 NIBP 114/54 NIBP BP-Mean 74 Respiration from ECG 15 SpO2 94 I&O: 09/01/19 09/02/19 09/03/19 06:59 06:59 06:59 Intake Total 5220 334 8467 Output Total 5300 2200 4405 Balance -9548 -8393 -6237 Result Diagrams: 08/31/19 04:02 09/03/19 04:40 Phys Exam - Physical Examination Constitutional: NAD HEENT: moist MMs, sclera anicteric, oral pharynx no lesions Neck: supple, full ROM Respiratory: no wheezing, no rales Coarse breath sounds - no acute respiratory distress Cardiovascular: no significant murmur, no rub Irregular Irregular Gastrointestinal: soft, non-tender, no distention, positive bowel sounds Musculoskeletal: pulses present Resolving LE edema Neurological: non-focal, moves all 4 limbs Psychiatric: normal affect, A&O x 3 Skin: no rash Dx/Plan (1) Acute on chronic congestive heart failure Code(s): I50.9 - HEART FAILURE, UNSPECIFIED Status: Acute (2) Acute and chronic respiratory failure with hypoxia Code(s): J96.21 - ACUTE AND CHRONIC RESPIRATORY FAILURE WITH HYPOXIA Status: Acute (3) Atrial fibrillation Code(s): I48.91 - UNSPECIFIED ATRIAL FIBRILLATION Status: Acute Qualifiers: Atrial fibrillation type: unspecified Qualified Code(s): I48.91 - Unspecified atrial fibrillation (4) CAD (coronary artery disease) Code(s): I25.10 - ATHSCL HEART DISEASE OF [place] CORONARY ARTERY W/O ANG PCTRS Status: Chronic (5) CKD (chronic kidney disease) Code(s): N18.9 - CHRONIC KIDNEY DISEASE, UNSPECIFIED Status: Chronic Qualifiers: (6) Hypertension Code(s): I10 - ESSENTIAL (PRIMARY) HYPERTENSION Status: Chronic Qualifiers: - Plan Plan: Patient is a 78 y/o male who presents to the hospital for evaluation of "fluid retention." Acute on Chronic HFrEF - Cardiology: Consulted and currently following - added Dobuatmine, Bumex, and Digoxin - Patient has been persistently tachycardic on Dobutamine ggt. - Strict I's/O's and UOP with daily weights. Elevate legs while in bed, encourage PT and ambulation - Holding BB and CHETAN 2/2 Dobutamine and renal function - Patient is approaching euvolemia - > 34L diuresis since admission > -1720 ml on 09/02 - Will await Cardiology recommendations for DC of Dobutamine and eventual transition PO diuretics - Rehab Screen for DC planning Hypokalemia - Added K-dur 20 mEq PO BID WM Acute on Chronic Respiratory Failure with Hypoxia, resolved - Pulmonology: Consulted, recommended intermittent home regimen of CPAP PRN and DuoNebs, Mucinex - Patient on 3L O2 via Nasal Cannula at home - no recent increase in O2 requirements Hyperbilirubinemia - Likely hepatic congestion. Stable, will cont to monitor. CKD III - Cr: 1.12 on 09/02 - improved since admission w/ Dobutamine ggt - Will continue to monitor A-Fib, Rhythm and Rate-Controlled - CHADSVASc: 4 - HASBLED: 3 - Hx of GI Bleed on Anticoagulation and thus had been DC'd at previous admission - Has been in A-Fib since admission, but rate-controlled - Cardiology: Consulted - recs appreciated Microcytic Anemia, Chronic - S/p Iron infusion - Will continue PO replacement HTN - BP: 129/63 on 09/03 - Holding Norvasc 2/2 LE edema at this time - Holding Lisinopril 2/2 renal function BPH with Acute Obstruction - Onel replaced by Urology - recommended keeping in place until DC'd by them as an outpatient - Continue home Tamsulosin regimen PCP: Dr. Samson Code: Full IVF: SL Diet: HH w/ Low Sodium, Fluid Restriction (1200 ml/day) VTE: Lovenox Dispo: Patient is currently admitted to the Telemetry Floor for ongoing fluid diuresis for Acute on Chronic CHF Exacerbation. Continue Dobutamine ggt, per Cardiology recs. Continue to encourage increased ambulation. Expected LOS > 48H. Addendum - Attending - Attending Attestation Date/Time: 09/03/19 1700 I personally evaluated the patient and discussed the management with Dr. Avitia. I agree with the History, Examination, Assessment and Plan documented above with any addition or exceptions noted below. The patient is doing well with diuresis. He remains on dobutamine drip. Almost 35 liters off so far.
[2019-09-03] MEDS: Enoxaparin Sodium 40 MG/0.4 ML SYRINGE SC SCH (10:00)
[2019-09-03] MEDS: Digoxin 0.25 MG TAB PO SCH (10:01)
[2019-09-03] MEDS: guaiFENesin ER 600 MG TAB PO SCH ×2 (10:05→20:39)
[2019-09-03] MEDS: Potassium Chloride 20 MEQ TAB PO SCH ×2 (10:06→16:31)
[2019-09-03] MEDS: Tamsulosin HCl 0.4 MG CAP PO SCH (10:06)
[2019-09-03] MEDS: Multivit, Therapeutic 1 TAB PO SCH (10:07)
[2019-09-03] MEDS: Ferrous Sulfate 325 MG TAB PO SCH (10:07)
[2019-09-03] MEDS: Aspirin Chewable 81 MG TAB PO SCH (10:07)
[2019-09-03] MEDS: Polyethylene Glycol 3350 17 GM Packet PO PRN (13:59)
[2019-09-03] MEDS: Carvedilol 6.25 MG TAB PO SCH (16:31)
[2019-09-04 05:11] LABS: Anion Gap 13 mmol/L (10-20); BUN (Urea Nitrogen) 25 mg/dL (8.4-25.7); Calc. Creatinine Clearance 106 mL/min (70-130); Carbon Dioxide 31 mmol/L (23-31); Chloride 98 mmol/L (98-107); Estimated GFR-MDRD 64; Glucose 101 mg/dL (83-110); Potassium 3.7 mmol/L (3.5-5.1); Sodium 138 mmol/L (136-145)
[2019-09-04] MEDS: Bumetanide 1 MG/4 ML VIAL IVP SCH ×2 (05:34→15:10)
--- NOTE | 2019-09-04 06:08 | PDOC.FM ---
- Subjective Subjective: Patient was sitting up in bed with his present at the time of evaluation. He denied any acute overnight events, such as chest pain or worsening SOB. He continues to remain optimistic about the decreased swelling in his LEs. - Objective Vital Signs & Weight: Vital Signs (12 hours) Temp Pulse Resp BP BP Pulse Ox 09/04/19 04:00 97.5 F L 96 22 H 132/73 95 09/04/19 00:55 102 H 18 156/71 H 94 L 09/03/19 20:30 96 09/03/19 20:08 102 H 16 97 09/03/19 19:50 97.6 F 95 18 140/66 97 Weight Admit Weight 167.013 kg Weight 139.071 kg Most Recent Monitor Data Heart Rate from ECG 114 NIBP 114/54 NIBP BP-Mean 74 Respiration from ECG 15 SpO2 94 I&O: 09/02/19 09/03/19 09/04/19 06:59 06:59 06:59 Intake Total 480 3018 720 Output Total 2200 4405 3480 Balance -6571 -7984 -3502 Result Diagrams: 08/31/19 04:02 09/04/19 03:54 Phys Exam - Physical Examination Constitutional: NAD HEENT: PERRLA, moist MMs, sclera anicteric, oral pharynx no lesions Neck: supple, full ROM Course breathe sounds w/ scattered wheezes Cardiovascular: no significant murmur, no rub Gastrointestinal: soft, non-tender, no distention, positive bowel sounds Musculoskeletal: pulses present Trace pitting edema bilaterally Neurological: non-focal, moves all 4 limbs Psychiatric: normal affect, A&O x 3 Skin: no rash Dx/Plan (1) Acute on chronic congestive heart failure Code(s): I50.9 - HEART FAILURE, UNSPECIFIED Status: Acute (2) Acute and chronic respiratory failure with hypoxia Code(s): J96.21 - ACUTE AND CHRONIC RESPIRATORY FAILURE WITH HYPOXIA Status: Acute (3) Atrial fibrillation Code(s): I48.91 - UNSPECIFIED ATRIAL FIBRILLATION Status: Acute Qualifiers: Atrial fibrillation type: unspecified Qualified Code(s): I48.91 - Unspecified atrial fibrillation (4) CAD (coronary artery disease) Code(s): I25.10 - ATHSCL HEART DISEASE OF [place] CORONARY ARTERY W/O ANG PCTRS Status: Chronic (5) CKD (chronic kidney disease) Code(s): N18.9 - CHRONIC KIDNEY DISEASE, UNSPECIFIED Status: Chronic Qualifiers: (6) Hypertension Code(s): I10 - ESSENTIAL (PRIMARY) HYPERTENSION Status: Chronic Qualifiers: - Plan Plan: Patient is a 78 y/o male who presents to the hospital for evaluation of "fluid retention." Acute on Chronic HFrEF - Cardiology: Consulted and currently following - added Dobuatmine, Bumex, and Digoxin - Patient has been persistently tachycardic on Dobutamine ggt - will reengage to evaluate timing of stopping Dobutamine - Strict I's/O's and UOP with daily weights. Elevate legs while in bed, encourage PT and ambulation - consider Walking Program - Holding BB and CHETAN 2/2 Dobutamine and renal function - Patient is approaching euvolemia - > 36L diuresis since admission > -2760 ml on 09/03 - Rehab Screen for DC planning Hypokalemia - Added K-dur 20 mEq PO BID WM Acute on Chronic Respiratory Failure with Hypoxia, resolved - Pulmonology: Consulted, recommended intermittent home regimen of CPAP PRN and DuoNebs, Mucinex - Patient on 3L O2 via Nasal Cannula at home - no recent increase in O2 requirements Hyperbilirubinemia - Likely hepatic congestion. Stable, will continue to monitor CKD III - Cr: 1.11 on 09/04 - improved since admission w/ Dobutamine ggt - Will continue to monitor A-Fib, Rhythm and Rate-Controlled - CHADSVASc: 4 - HASBLED: 3 - Hx of GI Bleed on Anticoagulation and thus had been DC'd at previous admission - Has been in A-Fib since admission, but rate-controlled - Cardiology: Consulted - recs appreciated Microcytic Anemia, Chronic - S/p Iron infusion - Will continue PO replacement HTN - BP: 132/73 on 09/04 - Holding Norvasc 2/2 LE edema at this time - Holding Lisinopril 2/2 renal function BPH with Acute Obstruction - Noel replaced by Urology - recommended keeping in place until DC'd by them as an outpatient - Continue home Tamsulosin regimen PCP: Dr. Samson Code: Full IVF: SL Diet: HH w/ Low Sodium, Fluid Restriction (1200 ml/day) VTE: Lovenox Dispo: Patient is currently admitted to the Telemetry Floor for ongoing fluid diuresis for Acute on Chronic HFrEF. Continue Dobutamine ggt, per Cardiology recs. Continue to encourage increased ambulation and consider addition of Walking Program if patient is able to tolerate. Expected LOS > 48H. Addendum - Attending - Attending Attestation Date/Time: 09/04/19 2703 I personally evaluated the patient and discussed the management with Dr. Avitia. I agree with the History, Examination, Assessment and Plan documented above with any addition or exceptions noted below. Impressive diuresis over this hospitalization with marked skin wrinkling over tibia. Continue diuresis, cards following.
[2019-09-04] MEDS: Carvedilol 6.25 MG TAB PO SCH ×2 (09:00→17:25)
[2019-09-04] MEDS: Ferrous Sulfate 325 MG TAB PO SCH (09:01)
[2019-09-04] MEDS: Potassium Chloride 20 MEQ TAB PO SCH ×2 (09:02→17:25)
[2019-09-04] MEDS: Aspirin Chewable 81 MG TAB PO SCH (09:03)
[2019-09-04] MEDS: Digoxin 0.25 MG TAB PO SCH (09:03)
[2019-09-04] MEDS: guaiFENesin ER 600 MG TAB PO SCH ×2 (09:04→21:03)
[2019-09-04] MEDS: Tamsulosin HCl 0.4 MG CAP PO SCH (09:05)
[2019-09-04] MEDS: Multivit, Therapeutic 1 TAB PO SCH (09:05)
[2019-09-04] MEDS: Enoxaparin Sodium 40 MG/0.4 ML SYRINGE SC SCH (10:26)
--- NOTE | 2019-09-04 13:50 | PRG ---
DATE OF SERVICE: 09/04/2019 SUBJECTIVE: The patient without new complaints. Denies chest pain or shortness of breath. OBJECTIVE: VITAL SIGNS: Stable. He is afebrile. I's and O's 1870 in and 4.3 L. He is negative 2.5 L. admitting weight 368. Current weight is 306 pounds. ABDOMEN: Morbidly obese, protuberant. : Noel catheter with dilute urine. EXTREMITIES: Decreased pitting edema. PERTINENT LABORATORY DATA: Creatinine 1.1. IMPRESSION AND PLAN: 1. Mr. Rodgers is a 78-year-old male admitted for congestive heart failure, chronic obstructive pulmonary disease exacerbation. Continues to be aggressively diuresed on IV diuretics. 2. History of benign prostatic hyperplasia, mild on Flomax. 3. History of bladder cancer in remission. 4. History of urethral stricture with false passage, no evidence of recurrent obstructing stricture of concern, recent PVR minimal, developed urinary retention on this admission due to aggressive diuresis and deconditioning. Continue Flomax, Noel catheter. Recommend voiding trial, when the patient is medically optimize , euvolemic, indwelling Noel catheter can continue as he is continues to be aggressively diuresed with large urine output. Job ID: [id number] [facility]
[2019-09-04] MEDS: DOBUTamine 500 mg/250 ml 250 ML IVPB SCH (15:07)
--- NOTE | 2019-09-04 15:44 | PDOC.CPN ---
- Subjective Date: 09/04/19 Time: 08:00 Interval history: The pt seen and examined. No overnight events. No cardiac complaints. - Objective Allergies/Adverse Reactions: Allergies Allergy/AdvReac Type Severity Reaction Status Date / Time No Known Drug Allergies Allergy Verified 08/03/18 08:42 Visit Medications: Current Medications Acetaminophen (Tylenol) 650 mg PO Q4H PRN PRN Reason: Headache/Fever/Mild Pain (1-3) Last Admin: 09/01/19 20:12 Dose: 650 mg Albuterol/Ipratropium (Duoneb) 3 ml NEB TID-RT [facility] Last Admin: 09/04/19 13:53 Dose: 3 ml Aspirin (Aspirin Chewable) [facility] [place] Admin: 09/04/19 09:03 Dose: 81 mg Bumetanide (Bumex) 2 mg IVP 0600,1400 [facility] Last Admin: 09/04/19 15:10 Dose: 2 mg Carvedilol (Coreg) 6.25 mg PO BID-[facility] Last Admin: 09/04/19 09:00 Dose: 6.25 mg Digoxin (Lanoxin) 0.25 mg PO DAILY [facility] Last Admin: 09/04/19 09:03 Dose: 0.25 mg Enoxaparin Sodium (Lovenox) 40 mg SC 0900 [facility] Last Admin: 09/04/19 10:26 Dose: 40 mg Ferrous Sulfate (Feosol) 325 mg PO QAM-[facility] Last Admin: 09/04/19 09:01 Dose: 325 mg Guaifenesin (Mucinex) 1,200 mg PO Q12HR [facility] Last Admin: 09/04/19 09:04 Dose: 1,200 mg Dobutamine HCl/Dextrose (Dobutamine 500 Mg/250 Ml) 250 mls @ 24.589 mls/hr IVPB INF [facility]; Protocol Last Admin: 09/04/19 15:07 Dose: 250 mls Multivitamins (Theragran) 1 tab PO DAILY [facility] Last Admin: 09/04/19 09:05 Dose: 1 tab Ondansetron HCl (Zofran Odt) 4 mg PO Q6H PRN PRN Reason: Nausea/Vomiting Polyethylene Glycol (Miralax) 17 gm PO DAILYPRN PRN PRN Reason: Constipation Last Admin: 09/03/19 13:59 Dose: 17 gm Potassium Chloride (K-Dur) 20 meq PO BID-WM [facility] Last Admin: 09/04/19 09:02 Dose: 20 meq Sodium Chloride (Flush - Normal Saline) 10 ml IVF Q12HR [facility] Last Admin: 09/04/19 09:39 Dose: Not Given Sodium Chloride (Flush - Normal Saline) 10 ml IVF PRN PRN PRN Reason: Saline Flush Last Admin: 08/25/19 05:25 Dose: 10 ml Tamsulosin HCl (Flomax) 0.4 mg PO QAM [facility] Last Admin: 09/04/19 09:05 Dose: 0.4 mg Vital Signs & Weight: Vital Signs Temp Pulse Resp BP BP Pulse Ox 09/04/19 13:53 83 16 09/04/19 11:35 97.9 F 83 16 130/72 97 09/04/19 08:00 98 09/04/19 07:35 101 H 16 144/87 H 98 09/04/19 07:34 100 20 09/04/19 04:00 97.5 F L 96 22 H 132/73 95 Admit Weight 368 lb 3.2 oz Weight 306 lb 9.6 oz - Physical Exam General: alert & oriented x3 HEENT: mucus membranes moist Neck: supple neck Cardiac: irregularly regular Lungs: decreased breath sounds, wheezes Extremities: other: (2+ pitting BLE edema) - Labs Result Diagrams: 08/31/19 04:02 09/04/19 03:54 Troponin/CKMB CK-MB (CK-2) 2.8 ng/mL (0-6.6) 08/21/19 12:40 Troponin I 0.010 ng/mL (< 0.028) 08/21/19 19:37 - Telemetry Supraventricular conduction: atrial fibrillation - Assessment/Plan Assessment/Plan: 1. 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 COPD exacerbation - he has been Home O2 PRN at home; managed by pulmonology service 3. Chronic afib - stable HR with Digoxin; off BBlocker for now; ASA due to hx of Anemia and high risk of falls 4. HTN - stable 5. CKD stage 3 - stable 6. Sleep apnea with Cpap at HS 7. Anemia - unchanged 8. Obese - weight management education with regular exercise given to the pt and family MAR reviewed * Echo on 08/22/2019 with EF 40-45% (50-55% in 09/2017) mild ERV, mild ERA, mild MR, TR, and MT Pt. seen and eval. by me. He continues to diurese. As long as the rnal function remains stable, he is diuresisn and still has edema then i will continue the dobutamine. I will repeat the echo and see if the Ef has improved. I hope to d/ c the dobutamine in the next 1-2 days. Chest : late expiratory wheezing . Irreg /irreg.
--- NOTE | 2019-09-04 16:06 | PRG ---
DATE OF SERVICE: 09/04/2019 Quintin Rodgers continues to diurese. Diuresed another 2510 in the last 24 hours. Weight is down to 306 pounds. His admission weight was reported at 368 pounds. His lungs are clear. Surprisingly, with the diuresis, he still has not had a bump in BUN or creatinine. BUN is 25 and creatinine is 1.1. His bilirubin has come down to 1.2, which I suspect is secondary to improving hepatic congestion. We will continue to follow. He is not bronchospastic and not having any issues with COPD or asthma. He is still compliant with his CPAP at night. Job ID: [id number]
[2019-09-05] MEDS: DOBUTamine 500 mg/250 ml 250 ML IVPB SCH ×2 (02:47→13:20)
[2019-09-05 04:35] LABS: Anion Gap 15 mmol/L (10-20); BUN (Urea Nitrogen) 26 mg/dL (8.4-25.7); Calc. Creatinine Clearance 103 mL/min (70-130); Calcium 8.8 mg/dL (7.8-10.44); Carbon Dioxide 28 mmol/L (23-31); Chloride 98 mmol/L (98-107); Estimated GFR-MDRD 62; Glucose 99 mg/dL (83-110); Potassium 3.6 mmol/L (3.5-5.1); Sodium 137 mmol/L (136-145)
[2019-09-05] MEDS: Bumetanide 1 MG/4 ML VIAL IVP SCH ×2 (05:49→14:13)
--- NOTE | 2019-09-05 05:49 | PDOC.FM ---
- Subjective Subjective: Patient was resting comfortably in his hospital bed with his present at the time of evaluation. Patient denied any acute overnight events, such as SOB, CP or ABD Pain or vomiting. The patient was encouraged to ambulate to the bathroom and sit up in bed whenever able. - Objective Vital Signs & Weight: Vital Signs (12 hours) Temp Pulse Resp BP Pulse Ox 09/05/19 03:49 98.5 F 91 18 157/75 H 97 09/04/19 23:54 98.4 F 83 18 145/72 H 94 L 09/04/19 19:46 84 18 98 09/04/19 19:40 94 L Weight Admit Weight 167.013 kg Weight 139.071 kg Most Recent Monitor Data Heart Rate from ECG 114 NIBP 114/54 NIBP BP-Mean 74 Respiration from ECG 15 SpO2 94 I&O: 09/03/19 09/04/19 09/05/19 06:59 06:59 06:59 Intake Total 3018 1870 720 Output Total 4405 5620 3325 Balance -6286 -9998 -0920 Result Diagrams: 08/31/19 04:02 09/05/19 03:50 Phys Exam - Physical Examination Constitutional: NAD HEENT: PERRLA, moist MMs, sclera anicteric, oral pharynx no lesions Neck: supple, full ROM Respiratory: no wheezing, no rales, no rhonchi, clear to auscultation bilateral Cardiovascular: no significant murmur, no rub Irregularly irregular Gastrointestinal: soft, non-tender, no distention, positive bowel sounds Musculoskeletal: pulses present Trace pitting edema on bilateral LEs Neurological: non-focal, moves all 4 limbs Psychiatric: normal affect Skin: no rash Dx/Plan (1) Acute on chronic congestive heart failure Code(s): I50.9 - HEART FAILURE, UNSPECIFIED Status: Acute (2) Acute and chronic respiratory failure with hypoxia Code(s): J96.21 - ACUTE AND CHRONIC RESPIRATORY FAILURE WITH HYPOXIA Status: Acute (3) Atrial fibrillation Code(s): I48.91 - UNSPECIFIED ATRIAL FIBRILLATION Status: Acute Qualifiers: Atrial fibrillation type: unspecified Qualified Code(s): I48.91 - Unspecified atrial fibrillation (4) CAD (coronary artery disease) Code(s): I25.10 - ATHSCL HEART DISEASE OF [place] CORONARY ARTERY W/O ANG PCTRS Status: Chronic (5) CKD (chronic kidney disease) Code(s): N18.9 - CHRONIC KIDNEY DISEASE, UNSPECIFIED Status: Chronic Qualifiers: (6) Hypertension Code(s): I10 - ESSENTIAL (PRIMARY) HYPERTENSION Status: Chronic Qualifiers: - Plan Plan: Patient is a 78 y/o male who presents to the hospital for evaluation of "fluid retention." Acute on Chronic HFrEF - Cardiology: Consulted and currently following - added Dobuatmine, Bumex, and Digoxin - Patient has been persistently tachycardic on Dobutamine ggt - Strict I's/O's and Daily Weights - Elevate legs while in bed w/ ambulation encouraged - PT/OT and Walking Program currently following - Holding BB and CHETAN 2/2 Dobutamine and renal function - Patient is approaching euvolemia - > 38L diuresis since admission > -2355 ml on 09/04 - Rehab Screen for DC planning Hypokalemia, resolved - Added K-dur 20 mEq PO BID WM Acute on Chronic Respiratory Failure with Hypoxia, resolved - Pulmonology: Consulted, recommended intermittent home regimen of CPAP PRN and DuoNebs, Mucinex - Patient on 3L O2 via Nasal Cannula at home - no recent increase in O2 requirements Hyperbilirubinemia, resolved - Likely hepatic congestion. Stable, will continue to monitor CKD III - Cr improved since admission w/ Dobutamine ggt - Will continue to monitor A-Fib, Rhythm and Rate-Controlled - CHADSVASc: 4 - HASBLED: 3 - Hx of GI Bleed on Anticoagulation and thus had been DC'd at previous admission - Has been in A-Fib since admission, but rate-controlled - Cardiology: Consulted - recs appreciated Microcytic Anemia, Chronic - S/p Iron infusion - Will continue PO replacement HTN - Holding Norvasc 2/2 LE edema at this time - Holding Lisinopril 2/2 renal function - Plan to restart home medication regimen following DC of Dobutamine gtt BPH with Acute Obstruction - Noel replaced by Urology - recommended keeping in place until DC'd by them as an outpatient - Continue home Tamsulosin regimen PCP: Dr. Samson Code: Full IVF: SL Diet: HH w/ Low Sodium, Fluid Restriction (1200 ml/day) VTE: Lovenox Dispo: Patient is currently admitted to the Telemetry Floor for ongoing fluid diuresis for Acute on Chronic HFrEF. Continue Dobutamine ggt, per Cardiology recs. Continue to encourage increased ambulation and coordinate w/ PT/OT and Walking Program as needed. Will engage with Case Management today to begin DC planning. Expected LOS > 48H. Addendum - Attending - Attending Attestation Date/Time: 09/05/19 9163 I personally evaluated the patient and discussed the management with Dr. Avitia. I agree with the History, Examination, Assessment and Plan documented above with any addition or exceptions noted below.
[2019-09-05] MEDS: Digoxin 0.25 MG TAB PO SCH (09:08)
[2019-09-05] MEDS: Tamsulosin HCl 0.4 MG CAP PO SCH (09:09)
[2019-09-05] MEDS: Aspirin Chewable 81 MG TAB PO SCH (09:09)
[2019-09-05] MEDS: guaiFENesin ER 600 MG TAB PO SCH ×2 (09:09→20:32)
[2019-09-05] MEDS: Multivit, Therapeutic 1 TAB PO SCH (09:10)
[2019-09-05] MEDS: Carvedilol 6.25 MG TAB PO SCH ×2 (09:10→17:27)
[2019-09-05] MEDS: Potassium Chloride 20 MEQ TAB PO SCH ×2 (09:10→17:27)
[2019-09-05] MEDS: Ferrous Sulfate 325 MG TAB PO SCH (09:10)
[2019-09-05] MEDS: Enoxaparin Sodium 40 MG/0.4 ML SYRINGE SC SCH (09:11)
[2019-09-05] MEDS: Polyethylene Glycol 3350 17 GM Packet PO PRN (14:16)
--- NOTE | 2019-09-05 16:05 | PDOC.CPN ---
- Subjective Date: 09/05/19 Time: 08:30 Interval history: The pt seen and examined. No overnight events. No cardiac complaints. The pt stated he has not exercised with PT for 2 days. - Objective Allergies/Adverse Reactions: Allergies Allergy/AdvReac Type Severity Reaction Status Date / Time No Known Drug Allergies Allergy Verified 08/03/18 08:42 Visit Medications: Current Medications Acetaminophen (Tylenol) 650 mg PO Q4H PRN PRN Reason: Headache/Fever/Mild Pain (1-3) Last Admin: 09/01/19 20:12 Dose: 650 mg Albuterol/Ipratropium (Duoneb) 3 ml NEB TID-RT [facility] Last Admin: 09/05/19 13:48 Dose: 3 ml Aspirin (A[facility]in Chewable) [facility] [place] Last Admin: 09/05/19 09:09 Dose: 81 mg Bumetanide (Bumex) 2 mg IVP 0600,1400 [facility] Last Admin: 09/05/19 14:13 Dose: 2 mg Carvedilol (Coreg) 6.25 mg PO BID-[facility] Last Admin: 09/05/19 09:10 Dose: 6.25 mg Digoxin (Lanoxin) 0.25 mg PO DAILY [facility] Last Admin: 09/05/19 09:08 Dose: 0.25 mg Enoxaparin Sodium (Lovenox) 40 mg SC 0900 [facility] Last Admin: 09/05/19 09:11 Dose: 40 mg Ferrous Sulfate (Feosol) 325 mg PO QAM-[facility] Last Admin: 09/05/19 09:10 Dose: 325 mg Guaifenesin (Mucinex) 1,200 mg PO Q12HR [facility] Last Admin: 09/05/19 09:09 Dose: 1,200 mg Dobutamine HCl/Dextrose (Dobutamine 500 Mg/250 Ml) 250 mls @ 24.589 mls/hr IVPB INF [facility]; Protocol Last Admin: 09/05/19 13:20 Dose: 250 mls Multivitamins (Theragran) 1 tab PO DAILY [facility] Last Admin: 09/05/19 09:10 Dose: 1 tab Ondansetron HCl (Zofran Odt) 4 mg PO Q6H PRN PRN Reason: Nausea/Vomiting Polyethylene Glycol (Miralax) 17 gm PO DAILYPRN PRN PRN Reason: Constipation Last Admin: 09/05/19 14:16 Dose: 17 gm Potassium Chloride (K-Dur) 20 meq PO BID-WM [facility] Last Admin: 09/05/19 09:10 Dose: 20 meq Sodium Chloride (Flush - Normal Saline) 10 ml IVF Q12HR [facility] Last Admin: 09/05/19 09:19 Dose: Not Given Sodium Chloride (Flush - Normal Saline) 10 ml IVF PRN PRN PRN Reason: Saline Flush Last Admin: 08/25/19 05:25 Dose: 10 ml Tamsulosin HCl (Flomax) 0.4 mg PO QAM [facility] Last Admin: 09/05/19 09:09 Dose: 0.4 mg Vital Signs & Weight: Vital Signs Temp Pulse Pulse Resp BP BP BP 09/05/19 13:48 85 20 09/05/19 13:16 89 196/108 H 09/05/19 12:00 97.7 F 78 16 147/69 H 09/05/19 09:10 168/71 H 09/05/19 09:08 99 09/05/19 08:00 98.5 F 99 20 09/05/19 07:11 87 20 BP Pulse Ox Pulse Ox 09/05/19 13:48 97 09/05/19 13:16 98 09/05/19 12:00 99 09/05/19 09:10 09/05/19 09:08 09/05/19 08:00 137/81 96 09/05/19 07:11 97 Admit Weight 368 lb 3.2 oz Weight 303 lb 9.6 oz - Physical Exam General: alert & oriented x3 HEENT: mucus membranes moist Neck: supple neck Cardiac: irregularly regular Lungs: decreased breath sounds Neuro: cranial nerve 2-12 intact Extremities: other: (1 + pitting BLE edema) - Labs Result Diagrams: 09/06/19 04:49 09/06/19 04:49 Troponin/CKMB CK-MB (CK-2) 2.8 ng/mL (0-6.6) 08/21/19 12:40 Troponin I 0.010 ng/mL (< 0.028) 08/21/19 19:37 - Telemetry Supraventricular conduction: atrial fibrillation - Assessment/Plan Assessment/Plan: 1. 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 COPD exacerbation - he has been Home O2 PRN at home; managed by pulmonology service 3. Chronic afib - stable HR with Digoxin; off BBlocker for now; ASA due to hx of Anemia, hx of GI bleed with OAC, and high risk of falls 4. HTN - stable 5. CKD stage 3 - stable 6. Sleep apnea with Cpap at HS 7. Anemia - unchanged 8. Obese - weight management education with regular exercise given to the pt and family MAR reviewed * Echo on 08/22/2019 with EF 40-45% (50-55% in 09/2017) mild ERV, mild ERA, mild MR, TR, and DC Pt. seen and eval. by me. I agree with the A/P by the HYDRA[employer]IC DESIGN ENGINEER. Will d/c dobutamine and see if he maintains his weight.He is feeling much better after significant diuresis. Chest clear, irreg/irreg. gjm
[2019-09-06] MEDS: Bumetanide 1 MG/4 ML VIAL IVP SCH ×2 (04:42→15:51)
[2019-09-06 05:21] LABS: Hemoglobin 9.7 g/dL (14.0-18.0); Mean Corpuscular HGB CONC 28.6 g/dL (32.0-36.0); Mean Corpuscular Hemoglobin 21.7 pg (27.0-31.0); Mean Corpuscular Volume 75.7 fL (78.0-98.0); Mean Platelet Volume 10.6 fL (7.4-10.4); Platelet Count 161 thou/uL (130-400); RBC Distribution Width 19.6 % (11.5-14.5); Red Blood Cell (RBC) Count 4.48 mill/uL (4.70-6.10); White Blood Cell (WBC) Count 6.2 thou/uL (4.8-10.8)
[2019-09-06 05:26] LABS: Anion Gap 10 mmol/L (10-20); BUN (Urea Nitrogen) 31 mg/dL (8.4-25.7); Calc. Creatinine Clearance 85 mL/min (70-130); Calcium 8.9 mg/dL (7.8-10.44); Carbon Dioxide 35 mmol/L (23-31); Chloride 94 mmol/L (98-107); Estimated GFR-MDRD 50; Glucose 117 mg/dL (83-110); Potassium 3.8 mmol/L (3.5-5.1); Sodium 135 mmol/L (136-145)
--- NOTE | 2019-09-06 05:46 | PDOC.FM ---
- Subjective Subjective: Patient was sitting up in bed with his in the room at the the time of evaluation. He denied any acute overnight events such as worsening SOB, CP or N/ V. A lengthy discussion was had about the pros and cons of attending rehab following the patient's eventual DC. Patient and his state that they are weighing the options of whether or not to pursue rehab following DC, as they are both undecided at this point. - Objective Vital Signs & Weight: Vital Signs (12 hours) Temp Pulse Resp BP Pulse Ox 09/06/19 03:47 97.8 F 92 18 137/67 97 09/05/19 20:25 97.9 F 76 20 128/67 99 09/05/19 19:05 83 20 95 Weight Admit Weight 167.013 kg Weight 137.711 kg Most Recent Monitor Data Heart Rate from ECG 114 NIBP 114/54 NIBP BP-Mean 74 Respiration from ECG 15 SpO2 94 I&O: 09/04/19 09/05/19 09/06/19 06:59 06:59 06:59 Intake Total 1870 2108 2992 Output Total 4380 4175 2024 Balance -0 -2066 967 Result Diagrams: 09/06/19 04:49 09/06/19 04:49 Phys Exam - Physical Examination Constitutional: NAD HEENT: moist MMs, sclera anicteric, oral pharynx no lesions Neck: supple, full ROM Respiratory: no rales, no rhonchi Mild, scattered expiratory wheezes Cardiovascular: no significant murmur, no rub Irregularly irregular Gastrointestinal: soft, non-tender, positive bowel sounds Musculoskeletal: pulses present Trace pitting edema bilaterally Neurological: non-focal, moves all 4 limbs Psychiatric: normal affect, A&O x 3 Skin: no rash Dx/Plan (1) Acute on chronic congestive heart failure Code(s): I50.9 - HEART FAILURE, UNSPECIFIED Status: Acute (2) Acute and chronic respiratory failure with hypoxia Code(s): J96.21 - ACUTE AND CHRONIC RESPIRATORY FAILURE WITH HYPOXIA Status: Acute (3) Atrial fibrillation Code(s): I48.91 - UNSPECIFIED ATRIAL FIBRILLATION Status: Acute Qualifiers: Atrial fibrillation type: unspecified Qualified Code(s): I48.91 - Unspecified atrial fibrillation (4) CAD (coronary artery disease) Code(s): I25.10 - ATHSCL HEART DISEASE OF [place] CORONARY ARTERY W/O ANG PCTRS Status: Chronic (5) CKD (chronic kidney disease) Code(s): N18.9 - CHRONIC KIDNEY DISEASE, UNSPECIFIED Status: Chronic Qualifiers: (6) Hypertension Code(s): I10 - ESSENTIAL (PRIMARY) HYPERTENSION Status: Chronic Qualifiers: - Plan Plan: Patient is a 78 y/o male who presents to the hospital for evaluation of "fluid retention." Acute on Chronic HFrEF - Cardiology: Consulted and currently following - added Dobuatmine, Bumex, and Digoxin initially - Dobutamine now DC'd - Strict I's/O's and Daily Weights - Elevate legs while in bed w/ ambulation encouraged - PT/OT and Walking Program currently following - Patient is approaching euvolemia - > 40L diuresis since admission - Rehab Screen for DC planning - Patient still undecided about whether or not to pursue rehab - request for evaluation place by Case Management to assist with long-term decision-making Hypokalemia, resolved - Added K-dur 20 mEq PO BID WM Acute on Chronic Respiratory Failure with Hypoxia, resolved - Pulmonology: Consulted, recommended intermittent home regimen of CPAP PRN and DuoNebs, Mucinex - Patient on 3L O2 via Nasal Cannula at home - no recent increase in O2 requirements Hyperbilirubinemia, resolved - Likely hepatic congestion - stable, will continue to monitor CKD III - Cr: 1.37 on 09/06 - likely 2/2 to extensive diuresis - Will continue to monitor A-Fib, Rhythm and Rate-Controlled - CHADSVASc: 4 - HASBLED: 3 - Hx of GI Bleed on Anticoagulation and thus had been DC'd at previous admission - Has been in A-Fib since admission, but rate-controlled - Cardiology: Consulted - recs appreciated Microcytic Anemia, Chronic - S/p Iron infusion - Will continue PO replacement HTN - Holding Norvasc 2/2 LE edema at this time - Holding Lisinopril 2/2 renal function - Plan to restart home medication regimen following DC of Dobutamine gtt BPH with Acute Obstruction - Noel replaced by Urology - recommended keeping in place until DC'd by them as an outpatient - Continue home Tamsulosin regimen - Plan for voiding trial this AM, per Urology recs PCP: Dr. Samson Code: Full IVF: SL Diet: HH w/ Low Sodium, Fluid Restriction (1200 ml/day) VTE: Lovenox Dispo: Patient is currently admitted to the Telemetry Floor for ongoing fluid diuresis for Acute on Chronic HFrEF. Dobutamine ggt DC'd, per Cardiology recs. Continue to encourage increased ambulation and coordinate w/ PT/OT and Walking Program as needed. Plan for voiding trial, per Uro recs. Continue to engage with Case Management for DC planning. Expected LOS > 48H. Addendum - Attending - Attending Attestation Date/Time: 09/06/19 0975 I personally evaluated the patient and discussed the management with the team. I agree with the History, Examination, Assessment and Plan documented above with any addition or exceptions noted below. Likely change to PO diuretic. Hopeful dc tomorrow.
[2019-09-06] MEDS: Tamsulosin HCl 0.4 MG CAP PO SCH (08:23)
[2019-09-06] MEDS: Enoxaparin Sodium 40 MG/0.4 ML SYRINGE SC SCH (08:23)
[2019-09-06] MEDS: Potassium Chloride 20 MEQ TAB PO SCH ×2 (08:23→15:52)
[2019-09-06] MEDS: Digoxin 0.25 MG TAB PO SCH (08:24)
[2019-09-06] MEDS: Aspirin Chewable 81 MG TAB PO SCH (08:24)
[2019-09-06] MEDS: Carvedilol 6.25 MG TAB PO SCH ×2 (08:24→15:52)
[2019-09-06] MEDS: Ferrous Sulfate 325 MG TAB PO SCH (08:24)
[2019-09-06] MEDS: guaiFENesin ER 600 MG TAB PO SCH ×2 (08:24→21:30)
[2019-09-06] MEDS: Multivit, Therapeutic 1 TAB PO SCH (08:25)
--- NOTE | 2019-09-06 08:32 | PRG ---
DATE OF SERVICE: 09/06/2019 SUBJECTIVE: The patient without complaints. OBJECTIVE: VITAL SIGNS: Vital signs are stable. I's and O's 2992 in _ ABDOMEN: Morbidly obese, protuberant. No rigidity. No rebound. Urine output clear. EXTREMITIES: Decreased pitting edema. LABORATORY DATA: Creatinine is 1.3. Dobutamine drip has been discontinued by Cardiology. The patient remains on diuretics. IMPRESSION AND PLAN: 1. Mr. Rodgers is a 78-year-old male with history admitted for congestive heart failure exacerbation, chronic obstructive pulmonary disease. 2. History of bladder cancer, in remission. 3. Prior history of false passage, required cystoscopic assist for Noel catheter placement as he presented with similar issues of congestive heart failure exacerbation about a year ago. 4. Recent cystoscopy demonstrated no significant obstructing urethral stricture nor significant PVR. 5. Current admission with PVR of 1100 secondary to aggressive diuresis and deconditioning. The patient is being transitioned and evaluated for inpatient rehab likely in the next few days. He is currently off his dobutamine drip. Urine output has decreased. Noel catheter removed at bedside, strict I's and O 's. Nursing staff to notify me regarding his postvoid residual. Continue Flomax. Patient unable to void, PVR 478 cc. 16 [place] coud passed uneventfully. Secured to gravity bag. We will need to keep his Noel catheter bit longer. Job ID: [id number] [id number]
--- NOTE | 2019-09-06 12:45 | PDOC.CPN ---
- Subjective Date: 09/06/19 Time: 12:47 Interval history: The pt seen and examined. No overnight events. No cardiac complaints. Discussed with the pt's about rehab after discharging from the hospital. She agreed him to tx to rehab. The pt was sleeping during the conversation. - Objective Allergies/Adverse Reactions: Allergies Allergy/AdvReac Type Severity Reaction Status Date / Time No Known Drug Allergies Allergy Verified 08/03/18 08:42 Visit Medications: Current Medications Acetaminophen (Tylenol) 650 mg PO Q4H PRN PRN Reason: Headache/Fever/Mild Pain (1-3) Last Admin: 09/01/19 20:12 Dose: 650 mg Albuterol/Ipratropium (Duoneb) 3 ml NEB TID-RT [facility] Last Admin: 09/06/19 07:29 Dose: 3 ml Aspirin (A[facility]in Chewable) [facility] [place] Last Admin: 09/06/19 08:24 Dose: 81 mg Bumetanide (Bumex) 2 mg IVP 0600,1400 [facility] Last Admin: 09/06/19 04:42 Dose: 2 mg Carvedilol (Coreg) 6.25 mg PO BID-[facility] Last Admin: 09/06/19 08:24 Dose: 6.25 mg Digoxin (Lanoxin) 0.25 mg PO DAILY [facility] Last Admin: 09/06/19 08:24 Dose: 0.25 mg Enoxaparin Sodium (Lovenox) 40 mg SC 0900 [facility] Last Admin: 09/06/19 08:23 Dose: 40 mg Ferrous Sulfate (Feosol) 325 mg PO QAM-[facility] Last Admin: 09/06/19 08:24 Dose: 325 mg Guaifenesin (Mucinex) 1,200 mg PO Q12HR [facility] Last Admin: 09/06/19 08:24 Dose: 1,200 mg Multivitamins (Theragran) 1 tab PO DAILY [facility] Last Admin: 09/06/19 08:25 Dose: 1 tab Ondansetron HCl (Zofran Odt) 4 mg PO Q6H PRN PRN Reason: Nausea/Vomiting Polyethylene Glycol (Miralax) 17 gm PO DAILYPRN PRN PRN Reason: Constipation Last Admin: 09/05/19 14:16 Dose: 17 gm Potassium Chloride (K-Dur) 20 meq PO BID-[facility] Last Admin: 09/06/19 08:23 Dose: 20 meq Sodium Chloride (Flush - Normal Saline) 10 ml IVF Q12HR [facility] Last Admin: 09/06/19 08:25 Dose: 10 ml Sodium Chloride (Flush - Normal Saline) 10 ml IVF PRN PRN PRN Reason: Saline Flush Last Admin: 08/25/19 05:25 Dose: 10 ml Tamsulosin HCl (Flomax) 0.4 mg PO QAM [facility] Last Admin: 09/06/19 08:23 Dose: 0.4 mg Vital Signs & Weight: Vital Signs Temp Pulse Resp BP BP Pulse Ox 09/06/19 11:13 98.1 F 79 18 112/68 97 09/06/19 07:29 86 16 96 09/06/19 07:21 97.9 F 75 18 122/66 95 09/06/19 03:47 97.8 F 92 18 137/67 97 Admit Weight 368 lb 3.2 oz Weight 301 lb 11.2 oz - Physical Exam General: alert & oriented x3 HEENT: mucus membranes moist Neck: supple neck Cardiac: irregularly regular Lungs: decreased breath sounds Extremities: other: (1+ pitting edema to RLE; 2+ pitting edema to LLE) - Labs Result Diagrams: 09/06/19 04:49 09/06/19 04:49 Troponin/CKMB CK-MB (CK-2) 2.8 ng/mL (0-6.6) 08/21/19 12:40 Troponin I 0.010 ng/mL (< 0.028) 08/21/19 19:37 - Telemetry Supraventricular conduction: atrial fibrillation - Assessment/Plan Assessment/Plan: 1. 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 COPD exacerbation - he has been Home O2 PRN at home; managed by pulmonology service 3. Chronic afib - stable HR with Digoxin and Coreg; Cont. ASA due to hx of Anemia, hx of GI bleed with OAC, and high risk of falls 4. HTN - stable 5. CKD stage 3 - stable 6. Sleep apnea with Cpap at HS 7. Anemia - unchanged 8. Obese - weight management education with regular exercise given to the pt and family MAR reviewed * Echo on 08/22/2019 with EF 40-45% (50-55% in 09/2017) mild ERV, mild ERA, mild MR, TR, and ID Pt. seen and eval. by me. I agree with the A/P by the [employer]. Noel was reinserted. Urology following. He has diuresed an incredible amount and hopefully we can keep the fluid off with oral diuretics and fluid control. He seems to be doing well off the dobutamins.The repeat echo today still indicates an EF of 40-45%. I will continue to follow the pt. with you. Chest clear. Irreg/irreg./
--- NOTE | 2019-09-06 18:49 | PRG ---
DATE OF SERVICE: 09/06/2019 SUBJECTIVE: Quintin Rodgers is doing well. He continues to diurese. OBJECTIVE: VITAL SIGNS: He is afebrile, heart rates in the 70s, blood pressure 151/72. Intake and output are surprisingly positive 497. LUNGS: Clear. HEART: Regular rhythm. ABDOMEN: Soft. IMPRESSION: 1. Chronic obstructive pulmonary disease, clinically stable. 2. Volume overload. It is multifactorial, improving with a huge weight loss. 3. Anemia with a decreased mean corpuscular volume. 4. Bump in creatinine and BUN suggesting that he is almost intravascularly dry. Continue to follow. Job ID: [id number]
[2019-09-07] MEDS: Bumetanide 1 MG/4 ML VIAL IVP SCH (05:08)
[2019-09-07 05:28] LABS: Anion Gap 14 mmol/L (10-20); BUN (Urea Nitrogen) 38 mg/dL (8.4-25.7); Calc. Creatinine Clearance 82 mL/min (70-130); Calcium 9.2 mg/dL (7.8-10.44); Carbon Dioxide 34 mmol/L (23-31); Chloride 96 mmol/L (98-107); Estimated GFR-MDRD 48; Glucose 112 mg/dL (83-110); Potassium 3.9 mmol/L (3.5-5.1); Sodium 140 mmol/L (136-145)
--- NOTE | 2019-09-07 05:47 | PDOC.FM ---
- Subjective Subjective: Patient was resting comfortably in bed with his present at the time of evaluation. He denied any acute overnight events such as CP or worsening CP. He stated that a voiding trial was attempted yesterday, but that he was unable to void on his own. Approximately 425 ml of retained urine was measured post- void, per Nursing staff. - Objective Vital Signs & Weight: Vital Signs (12 hours) Temp Pulse Resp BP BP Pulse Ox 09/07/19 03:30 97.8 F 69 19 137/72 98 09/06/19 20:00 98.6 F 70 18 123/75 97 09/06/19 18:31 81 16 95 Weight Admit Weight 167.013 kg Weight 133.81 kg Most Recent Monitor Data Heart Rate from ECG 114 NIBP 114/54 NIBP BP-Mean 74 Respiration from ECG 15 SpO2 94 I&O: 09/05/19 09/06/19 09/07/19 06:59 06:59 06:59 Intake Total 2107 3122 1700 Output Total 4179 2625 2225 Balance -7 497 -525 Result Diagrams: 09/06/19 04:49 09/07/19 04:57 Phys Exam - Physical Examination Constitutional: NAD HEENT: moist MMs, sclera anicteric, oral pharynx no lesions Neck: supple, full ROM Respiratory: no wheezing, no rales, no rhonchi, clear to auscultation bilateral Cardiovascular: no significant murmur, no rub Irregularly irregular Gastrointestinal: soft, non-tender, no distention, positive bowel sounds Musculoskeletal: pulses present Trace pitting edema bilaterally on LEs Neurological: non-focal, moves all 4 limbs Psychiatric: normal affect Skin: no rash Dx/Plan (1) Acute on chronic congestive heart failure Code(s): I50.9 - HEART FAILURE, UNSPECIFIED Status: Acute (2) Acute and chronic respiratory failure with hypoxia Code(s): J96.21 - ACUTE AND CHRONIC RESPIRATORY FAILURE WITH HYPOXIA Status: Acute (3) Atrial fibrillation Code(s): I48.91 - UNSPECIFIED ATRIAL FIBRILLATION Status: Acute Qualifiers: Atrial fibrillation type: unspecified Qualified Code(s): I48.91 - Unspecified atrial fibrillation (4) CAD (coronary artery disease) Code(s): I25.10 - ATHSCL HEART DISEASE OF [place] CORONARY ARTERY W/O ANG PCTRS Status: Chronic (5) CKD (chronic kidney disease) Code(s): N18.9 - CHRONIC KIDNEY DISEASE, UNSPECIFIED Status: Chronic Qualifiers: (6) Hypertension Code(s): I10 - ESSENTIAL (PRIMARY) HYPERTENSION Status: Chronic Qualifiers: - Plan Plan: Patient is a 78 y/o male who presents to the hospital for evaluation of "fluid retention." Acute on Chronic HFrEF - Cardiology: Consulted and currently following - added Dobuatmine, Bumex, and Digoxin initially - Dobutamine now DC'd - Strict I's/O's and Daily Weights - Elevate legs while in bed w/ ambulation encouraged - PT/OT and Walking Program currently following - Patient is approaching euvolemia - > 40L diuresis since admission - Rehab Screen for DC planning - Patient still undecided about whether or not to pursue rehab - request for evaluation place by Case Management to assist with long-term decision-making - Will need medication optimization prior to DC - considering Torsemide 20 mg PO BID rather than Bumex Hypokalemia, resolved - Added K-dur 20 mEq PO BID [facility] Acute on Chronic Respiratory Failure with Hypoxia, resolved - Pulmonology: Consulted, recommended intermittent home regimen of CPAP PRN and DuoNebs, Mucinex - Patient on 3L O2 via Nasal Cannula at home - no recent increase in O2 requirements Hyperbilirubinemia, resolved - Likely hepatic congestion - stable, will continue to monitor CKD III - Cr: 1.37 on 09/06 - likely 2/2 to extensive diuresis - Will continue to monitor A-Fib, Rhythm and Rate-Controlled - CHADSVASc: 4 - HASBLED: 3 - Hx of GI Bleed on Anticoagulation and thus had been DC'd at previous admission - Has been in A-Fib since admission, but rate-controlled - Cardiology: Consulted - recs appreciated Microcytic Anemia, Chronic - S/p Iron infusion - Will continue PO replacement HTN - Holding Norvasc 2/2 LE edema at this time - Holding Lisinopril 2/2 renal function - Plan to restart home medication regimen following DC of Dobutamine gtt BPH with Acute Obstruction - Noel replaced by Urology - recommended keeping in place until DC'd by them as an outpatient - Continue home Tamsulosin regimen - Will follow-up with Nursing staff about voiding trial - Urology recs appreciated PCP: Dr. Samson Code: Full IVF: SL Diet: HH w/ Low Sodium, Fluid Restriction (1200 ml/day) VTE: Lovenox Dispo: Patient is currently admitted to the Telemetry Floor for ongoing fluid diuresis for Acute on Chronic HFrEF. Dobutamine ggt DC'd, per Cardiology recs. Continue to encourage increased ambulation and coordinate w/ PT/OT and Walking Program as needed. Await results of voiding trial, per Uro recs. Continue to engage with Case Management for DC planning. Expected LOS < 48H. Addendum - Attending - Attending Attestation Date/Time: 09/07/19 1400 I personally evaluated the patient and discussed the management with the team. I agree with the History, Examination, Assessment and Plan documented above with any addition or exceptions noted below. Cards managing diuretics. I feel we he is likely prerenal at this point.
[2019-09-07] MEDS: Potassium Chloride 20 MEQ TAB PO SCH ×2 (08:40→16:22)
[2019-09-07] MEDS: guaiFENesin ER 600 MG TAB PO SCH ×2 (08:40→20:51)
[2019-09-07] MEDS: Multivit, Therapeutic 1 TAB PO SCH (08:40)
[2019-09-07] MEDS: Ferrous Sulfate 325 MG TAB PO SCH (08:40)
[2019-09-07] MEDS: Aspirin Chewable 81 MG TAB PO SCH (08:41)
[2019-09-07] MEDS: Carvedilol 6.25 MG TAB PO SCH ×2 (08:41→16:22)
[2019-09-07] MEDS: Tamsulosin HCl 0.4 MG CAP PO SCH (08:41)
[2019-09-07] MEDS: Digoxin 0.25 MG TAB PO SCH (08:41)
[2019-09-07] MEDS: Enoxaparin Sodium 40 MG/0.4 ML SYRINGE SC SCH (08:41)
--- NOTE | 2019-09-07 09:34 | PDOC.CPN ---
- Subjective Date: 09/07/19 Time: 08:30 Interval history: The pt seen and examined. No overnight events. No cardiac complaints. - Objective Allergies/Adverse Reactions: Allergies Allergy/AdvReac Type Severity Reaction Status Date / Time No Known Drug Allergies Allergy Verified 08/03/18 08:42 Visit Medications: Current Medications Acetaminophen (Tylenol) 650 mg PO Q4H PRN PRN Reason: Headache/Fever/Mild Pain (1-3) Last Admin: 09/01/19 20:12 Dose: 650 mg Albuterol/Ipratropium (Duoneb) 3 ml NEB TID-RT [facility] Last Admin: 09/07/19 07:29 Dose: 3 ml Aspirin (Aspirin Chewable) 81 mg PO QAM [facility] Last Admin: 09/07/19 08:41 Dose: 81 mg Bumetanide (Bumex) 2 mg PO BID-AC [facility] Carvedilol (Coreg) 6.25 mg PO BID-[facility] Last Admin: 09/07/19 08:41 Dose: 6.25 mg Digoxin (Lanoxin) 0.25 mg PO DAILY [facility] Last Admin: 09/07/19 08:41 Dose: 0.25 mg Enoxaparin Sodium (Lovenox) 40 mg SC 0900 [facility] Last Admin: 09/07/19 08:41 Dose: 40 mg Ferrous Sulfate (Feosol) 325 mg PO QAM-[facility] Last Admin: 09/07/19 08:40 Dose: 325 mg Guaifenesin (Mucinex) 1,200 mg PO Q12HR [facility] Last Admin: 09/07/19 08:40 Dose: 1,200 mg Multivitamins (Theragran) 1 tab PO DAILY [facility] Last Admin: 09/07/19 08:40 Dose: 1 tab Ondansetron HCl (Zofran Odt) 4 mg PO Q6H PRN PRN Reason: Nausea/Vomiting Polyethylene Glycol (Miralax) 17 gm PO DAILYPRN PRN PRN Reason: Constipation Last Admin: 09/05/19 14:16 Dose: 17 gm Potassium Chloride (K-Dur) 20 meq PO BID-[facility] Last Admin: 09/07/19 08:40 Dose: 20 meq Sacubitril/Valsartan (Entresto 24 Mg-26 Mg Tablet) 24 - 26 tab PO Q12HR [facility] Stop: 09/26/19 21:01 Sodium Chloride (Flush - Normal Saline) 10 ml IVF Q12HR [facility] Last Admin: 09/07/19 08:41 Dose: 10 ml Sodium Chloride (Flush - Normal Saline) 10 ml IVF PRN PRN PRN Reason: Saline Flush Last Admin: 08/25/19 05:25 Dose: 10 ml Tamsulosin HCl (Flomax) 0.4 mg PO QAM [facility] Last Admin: 09/07/19 08:41 Dose: 0.4 mg Vital Signs & Weight: Vital Signs Temp Pulse Resp BP BP Pulse Ox 09/07/19 07:29 72 14 96 09/07/19 07:04 97.7 F 75 18 125/62 95 09/07/19 03:30 97.8 F 69 19 137/72 98 Admit Weight 368 lb 3.2 oz Weight 295 lb - Physical Exam General: alert & oriented x3 HEENT: mucus membranes moist Neck: supple neck Cardiac: irregularly regular Lungs: decreased breath sounds Extremities: other: (1-2+ pitting BLE edema, Lt>Rt) Skin: clear - Labs Result Diagrams: 09/06/19 04:49 09/07/19 04:57 Troponin/CKMB CK-MB (CK-2) 2.8 ng/mL (0-6.6) 08/21/19 12:40 Troponin I 0.010 ng/mL (< 0.028) 08/21/19 19:37 - Telemetry Supraventricular conduction: atrial fibrillation - Assessment/Plan Assessment/Plan: 1. 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 COPD exacerbation - he has been Home O2 PRN at home; managed by pulmonology service 3. Chronic afib - stable HR with Digoxin and Coreg; Cont. ASA due to hx of Anemia, hx of GI bleed with OAC, and high risk of falls 4. HTN - stable 5. CKD stage 3 - slightly elevated this AM 6. Sleep apnea with Cpap at HS 7. Anemia - unchanged 8. Obese - weight management education with regular exercise given to the pt and family MAR reviewed * Echo on 08/22/2019 with EF 40-45% (50-55% in 09/2017) mild ERV, mild ERA, mild MR, TR, and NE * Echo on 09/06/2019 with EF 40-45%, mod reduced Rt ventricle Systolic Function , mild-mod LAE, mild Tr and NE Pt. seen and eval. by me. I agree with the A/P by the [employer]. He is ambulating in the halls, no cardiac complaints. Chest clear, irreg/irreg. Noel catheter is still in,post void residual yesterday indicated urine retention. From my perspective he is ready for rehab. I will see him back in the office in 2-4 weeks. I have explained to him that he will need to watch his volume intake/output and weight. He seems to be at his dry weight now and may be a little on the dry side. follow BUN:Creat. He had a negative stress test in 2018 and I do not have an indication that he has any CAD. He likely has diastolic dysfunction but this can not be adequately evaluated with his atrial fibrillation. jossie
[2019-09-07 14:07] VITALS: BMI 40.0
[2019-09-07] MEDS: Bumetanide 1 MG TAB PO SCH (16:22)
--- NOTE | 2019-09-08 06:32 | PDOC.FM ---
- Subjective Subjective: Patient was resting comfortably with his at bedside at the time of evaluation. He denied any acute overnight events such as CP or worsening SOB. - Objective Vital Signs & Weight: Vital Signs (12 hours) Temp Pulse Resp BP Pulse Ox 09/08/19 03:38 97.4 F L 72 18 119/55 L 98 09/07/19 20:00 98.3 F 72 18 108/56 L 99 09/07/19 19:07 74 16 94 L Weight Admit Weight 167.013 kg Weight 133.81 kg Most Recent Monitor Data Heart Rate from ECG 114 NIBP 114/54 NIBP BP-Mean 74 Respiration from ECG 15 SpO2 94 I&O: 09/06/19 09/07/19 09/08/19 06:59 06:59 06:59 Intake Total 3122 1700 850 Output Total 262 2225 1100 Balance 497 -525 -250 Result Diagrams: 09/06/19 04:49 09/08/19 06:15 Phys Exam - Physical Examination Constitutional: NAD HEENT: moist MMs, sclera anicteric, oral pharynx no lesions Neck: supple, full ROM Respiratory: no wheezing, no rales, no rhonchi, clear to auscultation bilateral Cardiovascular: no significant murmur, no rub Irregularly irregular Gastrointestinal: soft, no distention, positive bowel sounds Musculoskeletal: pulses present Trace pitting edema bilaterally - similar with previous exam Neurological: non-focal, moves all 4 limbs Psychiatric: normal affect Skin: no rash Dx/Plan (1) Acute on chronic congestive heart failure Code(s): I50.9 - HEART FAILURE, UNSPECIFIED Status: Acute (2) Acute and chronic respiratory failure with hypoxia Code(s): J96.21 - ACUTE AND CHRONIC RESPIRATORY FAILURE WITH HYPOXIA Status: Acute (3) Atrial fibrillation Code(s): I48.91 - UNSPECIFIED ATRIAL FIBRILLATION Status: Acute Qualifiers: Atrial fibrillation type: unspecified Qualified Code(s): I48.91 - Unspecified atrial fibrillation (4) CAD (coronary artery disease) Code(s): I25.10 - ATHSCL HEART DISEASE OF [place] CORONARY ARTERY W/O ANG PCTRS Status: Chronic (5) CKD (chronic kidney disease) Code(s): N18.9 - CHRONIC KIDNEY DISEASE, UNSPECIFIED Status: Chronic Qualifiers: (6) Hypertension Code(s): I10 - ESSENTIAL (PRIMARY) HYPERTENSION Status: Chronic Qualifiers: - Plan Plan: Patient is a 78 y/o male who presents to the hospital for evaluation of "fluid retention." Acute on Chronic HFrEF - Cardiology: Consulted and currently following - added Dobuatmine, Bumex, and Digoxin initially - Dobutamine now DC'd - Strict I's/O's and Daily Weights - Elevate legs while in bed w/ ambulation encouraged - PT/OT and Walking Program currently following - Patient is approaching euvolemia - > 40L diuresis since admission - Rehab Screen for DC planning - currently awaiting Rehab decision Hypokalemia, resolved - Added K-dur 20 mEq PO BID [facility] Acute on Chronic Respiratory Failure with Hypoxia, resolved - Pulmonology: Consulted, recommended intermittent home regimen of CPAP PRN and DuoNebs, Mucinex - Patient on 3L O2 via Nasal Cannula at home - no recent increase in O2 requirements Hyperbilirubinemia, resolved - Likely hepatic congestion - stable, will continue to monitor CKD III - Cr: 1.98 on 09/08 - likely 2/2 to extensive diuresis - Will continue to monitor A-Fib, Rhythm and Rate-Controlled - CHADSVASc: 4 - HASBLED: 3 - Hx of GI Bleed on Anticoagulation and thus had been DC'd at previous admission - Has been in A-Fib since admission, but rate-controlled - Cardiology: Consulted - recs appreciated Microcytic Anemia, Chronic - S/p Iron infusion - Will continue PO replacement HTN - Entresto added by Cardiology - currently tolerating well BPH with Acute Obstruction - Noel replaced by Urology - recommended keeping in place until DC'd by them as an outpatient - Continue home Tamsulosin regimen - Failed Voiding Trial on 09/07 PCP: Dr. Samson Code: Full IVF: SL Diet: HH w/ Low Sodium, Fluid Restriction (1200 ml/day) VTE: Lovenox Dispo: Patient is currently admitted to the Telemetry Floor for ongoing fluid diuresis for Acute on Chronic HFrEF. Dobutamine ggt DC'd and home medication regimen optimized, per Cardiology recs. Continue to encourage increased ambulation and coordinate w/ PT/OT and Walking Program as needed. Continue to engage with Case Management for DC planning - currently awaiting [facility] decision. Patient will require outpatient follow-up with Urology for urinary retention. Expected LOS < 48H. Addendum - Attending - Attending Attestation Date/Time: 09/08/191813 I personally evaluated the patient and discussed the management with Dr. Avitia. I agree with the History, Examination, Assessment and Plan documented above with any addition or exceptions noted below.
[2019-09-08 06:54] LABS: Anion Gap 15 mmol/L (10-20); BUN (Urea Nitrogen) 51 mg/dL (8.4-25.7); Calc. Creatinine Clearance 58 mL/min (70-130); Calcium 8.9 mg/dL (7.8-10.44); Carbon Dioxide 30 mmol/L (23-31); Chloride 94 mmol/L (98-107); Estimated GFR-MDRD 33; Glucose 124 mg/dL (83-110); Potassium 4.1 mmol/L (3.5-5.1); Sodium 135 mmol/L (136-145)
[2019-09-08] MEDS: Multivit, Therapeutic 1 TAB PO SCH (08:03)
[2019-09-08] MEDS: Digoxin 0.25 MG TAB PO SCH (08:03)
[2019-09-08] MEDS: Bumetanide 1 MG TAB PO SCH (08:03)
[2019-09-08] MEDS: guaiFENesin ER 600 MG TAB PO SCH ×2 (08:03→20:34)
[2019-09-08] MEDS: Potassium Chloride 20 MEQ TAB PO SCH ×2 (08:04→16:54)
[2019-09-08] MEDS: Carvedilol 6.25 MG TAB PO SCH ×2 (08:04→16:54)
[2019-09-08] MEDS: Ferrous Sulfate 325 MG TAB PO SCH (08:04)
[2019-09-08] MEDS: Tamsulosin HCl 0.4 MG CAP PO SCH (08:05)
[2019-09-08] MEDS: Enoxaparin Sodium 40 MG/0.4 ML SYRINGE SC SCH (08:05)
[2019-09-08] MEDS: Aspirin Chewable 81 MG TAB PO SCH (08:05)
--- NOTE | 2019-09-08 08:16 | PRG ---
DATE OF SERVICE: 09/08/2019 SUBJECTIVE: The patient doing well, at bedside. Disposition pending, awaiting final discharge orders for [facility]. OBJECTIVE: VITAL SIGNS: Afebrile. I's and O's; 1570 in, 1800 out, negative 230 mL. His admitting weight 368. This morning, he weighs 297. ABDOMEN: Morbidly obese. No rigidity. No rebound. GENITOURINARY: Urine output is clear. EXTREMITIES: Decreased pitting edema. IMPRESSION AND PLAN: 1. A 78-year-old male admitted for congestive heart failure, chronic obstructive pulmonary disease exacerbation, aggressive diuresis with clinical improvement. 2. History of bladder cancer in remission. 3. Prior history of false passage, urethral trauma, requiring cystoscopic assist as he was admitted last year for similar issues of congestive heart failure exacerbation. 4. Recent cystoscopy demonstrating no significant obstructing urethral stricture. No significant PVR. Mild benign prostatic hyperplasia on Flomax. 5. Current admission with PVR of 1100 mL secondary to aggressive diuresis and deconditioning. He failed his voiding trial few days ago due to PVR of 478, therefore 16-Cypriot Noel catheter replaced by . Recommend if the patient is being discharged today over the weekend to rehab, I recommend the patient to be transitioned with indwelling Noel catheter. The patient and were informed to call me when disposition for discharge at rehab for close followup with . Continue Flomax. No new recommendations for . [facility]. As he has a cardiology appointment September 25, recommend he sees me same date at 1130. Appointment in chart. Job ID: [id number] [id number]
[2019-09-08] MEDS ORDERED: Lactated Ringer's 250 ML IV SCH (10:15)
--- NOTE | 2019-09-08 11:56 | PDOC.CPN ---
- Subjective Date: 09/08/19 Time: 08:00 Interval history: The pt seen and examined. No overnight events. No cardiac complaints. - Objective Allergies/Adverse Reactions: Allergies Allergy/AdvReac Type Severity Reaction Status Date / Time No Known Drug Allergies Allergy Verified 08/03/18 08:42 Visit Medications: Current Medications Acetaminophen (Tylenol) 650 mg PO Q4H PRN PRN Reason: Headache/Fever/Mild Pain (1-3) Last Admin: 09/01/19 20:12 Dose: 650 mg Albuterol/Ipratropium (Duoneb) 3 ml NEB TID-RT [facility] Last Admin: 09/08/19 07:44 Dose: 3 ml Aspirin (Aspirin Chewable) [facility] [place] Last Admin: 09/08/19 08:05 Dose: 81 mg Carvedilol (Coreg) 6.25 mg PO BID-[facility] Last Admin: 09/08/19 08:04 Dose: 6.25 mg Digoxin (Lanoxin) 0.25 mg PO DAILY [facility] Last Admin: 09/08/19 08:03 Dose: 0.25 mg Enoxaparin Sodium (Lovenox) 40 mg SC 0900 [facility] Last Admin: 09/08/19 08:05 Dose: 40 mg Ferrous Sulfate (Feosol) 325 mg PO QAM-[facility] Last Admin: 09/08/19 08:04 Dose: 325 mg Guaifenesin (Mucinex) 1,200 mg PO Q12HR [facility] Last Admin: 09/08/19 08:03 Dose: 1,200 mg Multivitamins (Theragran) 1 tab PO DAILY [facility] Last Admin: 09/08/19 08:03 Dose: 1 tab Ondansetron HCl (Zofran Odt) 4 mg PO Q6H PRN PRN Reason: Nausea/Vomiting Polyethylene Glycol (Miralax) 17 gm PO DAILYPRN PRN PRN Reason: Constipation Last Admin: 09/05/19 14:16 Dose: 17 gm Potassium Chloride (K-Dur) 20 meq PO BID-[facility] Last Admin: 09/08/19 08:04 Dose: 20 meq Sodium Chloride (Flush - Normal Saline) 10 ml IVF Q12HR [facility] Last Admin: 09/08/19 08:03 Dose: 10 ml Sodium Chloride (Flush - Normal Saline) 10 ml IVF PRN PRN PRN Reason: Saline Flush Last Admin: 08/25/19 05:25 Dose: 10 ml Tamsulosin HCl (Flomax) 0.4 mg PO QAM [facility] Last Admin: 09/08/19 08:05 Dose: 0.4 mg Vital Signs & Weight: Vital Signs Temp Pulse Pulse Pulse Pulse Resp BP 09/08/19 11:41 97.8 F 67 18 09/08/19 09:32 65 67 69 98/56 L 09/08/19 07:44 84 15 09/08/19 07:05 98.2 F 67 18 09/08/19 03:38 97.4 F L 72 18 BP BP BP Pulse Ox Pulse Ox Pulse Ox Pulse Ox 09/08/19 11:41 111/55 L 98 09/08/19 09:32 87/52 L 107/68 95 98 99 09/08/19 07:44 99 09/08/19 07:05 118/59 L 98 09/08/19 03:38 119/55 L 98 Admit Weight 368 lb 3.2 oz Weight 297 lb - Physical Exam General: alert & oriented x3 HEENT: mucus membranes moist Neck: supple neck Cardiac: irregularly regular Lungs: decreased breath sounds Neuro: cranial nerve 2-12 intact Extremities: other: (2+ pitting BLE edema; Lt>Rt) - Labs Result Diagrams: 09/06/19 04:49 09/08/19 06:15 Troponin/CKMB CK-MB (CK-2) 2.8 ng/mL (0-6.6) 08/21/19 12:40 Troponin I 0.010 ng/mL (< 0.028) 08/21/19 19:37 - Telemetry Supraventricular conduction: atrial fibrillation - Assessment/Plan Assessment/Plan: 1. 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 COPD exacerbation - he has been Home O2 PRN at home; managed by pulmonology service 3. Chronic afib - stable HR with Digoxin and Coreg; Cont. ASA due to hx of Anemia, hx of GI bleed with OAC, and high risk of falls 4. HTN - stable 5. CKD stage 3 - Bumex and Entresto are on hold for worsening of renal function ; recommend renal consult 6. Sleep apnea with Cpap at HS 7. Anemia - unchanged 8. Obese - weight management education with regular exercise given to the pt and family MAR reviewed * Echo on 08/22/2019 with EF 40-45% (50-55% in 09/2017) mild ERV, mild ERA, mild MR, TR, and AZ * Echo on 09/06/2019 with EF 40-45%, mod reduced Rt ventricle Systolic Function , mild-mod LAE, mild Tr and AZ * Negative stress test in 2018 Pt. seen and eval. by me. I agree with the A/P by the [employer]. I am concerned about the increase in the creat. after starting Entresto, this contains an ARB, he may have underlying renal vasciular disease or BECKA. The BP has not been significantly elevated and he has not recently been on an CHETAN-I or an ARB. He should be monitored over the weekend to see if the renal function improves or does not worsen. Chest clear. Irreg/irreg. No significant edema. gjm
[2019-09-09 04:49] LABS: Anion Gap 13 mmol/L (10-20); BUN (Urea Nitrogen) 57 mg/dL (8.4-25.7); Calc. Creatinine Clearance 56 mL/min (70-130); Calcium 8.8 mg/dL (7.8-10.44); Carbon Dioxide 30 mmol/L (23-31); Chloride 97 mmol/L (98-107); Estimated GFR-MDRD 31; Glucose 112 mg/dL (83-110); Potassium 4.2 mmol/L (3.5-5.1); Sodium 136 mmol/L (136-145)
--- NOTE | 2019-09-09 05:41 | PDOC.FM ---
- Subjective Subjective: Mr. Rodgers is doing well this morning. Per , he is grumpy. Patient was out of bed shaving this morning. He denies chest pain, abdominal pain, shortness of breath, nausea or vomiting. - Objective MAR Reviewed: Yes Vital Signs & Weight: Vital Signs (12 hours) Temp Pulse Resp BP BP Pulse Ox 09/09/19 03:52 97.7 F 69 18 124/59 L 97 09/08/19 20:00 98 09/08/19 19:31 97.8 F 75 16 114/53 L 98 09/08/19 18:48 70 16 Weight Admit Weight 167.013 kg Weight 136.985 kg Most Recent Monitor Data Heart Rate from ECG 114 NIBP 114/54 NIBP BP-Mean 74 Respiration from ECG 15 SpO2 94 I&O: 09/07/19 09/08/19 09/09/19 06:59 06:59 06:59 Intake Total 1700 1570 1450 Output Total 2225 1800 1125 Balance -525 -230 325 Result Diagrams: 09/06/19 04:49 09/09/19 04:11 Phys Exam - Physical Examination Constitutional: NAD HEENT: moist MMs, sclera anicteric Neck: supple Respiratory: no wheezing, no rales, no rhonchi, clear to auscultation bilateral Cardiovascular: no significant murmur, no rub Atrial fibrillation on monitor. Irregularly irregular rhythm. Gastrointestinal: soft, non-tender Musculoskeletal: pulses present, edema present (trace, improving. ) Neurological: non-focal, moves all 4 limbs Psychiatric: normal affect, A&O x 3 Skin: no rash, normal turgor Dx/Plan (1) Acute on chronic congestive heart failure Code(s): I50.9 - HEART FAILURE, UNSPECIFIED Status: Acute (2) Urinary retention with incomplete bladder emptying Code(s): R33.9 - RETENTION OF URINE, UNSPECIFIED Status: Acute (3) Acute and chronic respiratory failure with hypoxia Code(s): J96.21 - ACUTE AND CHRONIC RESPIRATORY FAILURE WITH HYPOXIA Status: Acute (4) Acute respiratory failure with hypercapnia Code(s): J96.02 - ACUTE RESPIRATORY FAILURE WITH HYPERCAPNIA Status: Acute (5) Atrial fibrillation Code(s): I48.91 - UNSPECIFIED ATRIAL FIBRILLATION Status: Acute Qualifiers: Atrial fibrillation type: unspecified Qualified Code(s): I48.91 - Unspecified atrial fibrillation (6) CKD (chronic kidney disease) Code(s): N18.9 - CHRONIC KIDNEY DISEASE, UNSPECIFIED Status: Chronic Qualifiers: (7) MAY (obstructive sleep apnea) Code(s): G47.33 - OBSTRUCTIVE SLEEP APNEA (ADULT) (PEDIATRIC) Status: Suspected - Plan Plan: KOREY on CKD III - Creatinine elevation likely 2/2 to extensive diuresis - Will continue to monitor, once renal function is improving or stable, plan for d/c. Acute on Chronic HFrEF exacerbation, resolved - Cardiology: Consulted and currently following. - Strict I's/O's and Daily Weights - Elevate legs while in bed w/ ambulation encouraged - PT/OT and Walking Program currently following - Patient is euvolemic. - Planning to d/c to rehab as soon as possible. Hypokalemia, resolved - Added K-dur 20 mEq PO BID [facility] Acute on Chronic Respiratory Failure with Hypoxia, resolved - Pulmonology: Consulted, recommended intermittent home regimen of CPAP PRN and DuoNebs, Mucinex - Patient on 3L O2 via Nasal Cannula at home - no recent increase in O2 requirements Hyperbilirubinemia, resolved A-Fib, Rhythm and Rate-Controlled - CHADSVASc: 4 - HASBLED: 3 - Hx of GI Bleed on Anticoagulation and thus had been DC'd at previous admission - Has been in A-Fib since admission, but rate-controlled - Cardiology: Consulted - recs appreciated Microcytic Anemia, Chronic - PO iron replacement. HTN - Entresto discontinued 2/2 renal function. Recommend f/u outpatient with cardiology once KOREY has resolved. BPH with Acute Obstruction - Guadalupe replaced by Urology, patient will require outpatient f/u and management. He will be d/c-ed with indwelling guadalupe catheter. PCP: Dr. Samson Code: Full IVF: SL Diet: HH w/ Low Sodium, Fluid Restriction (1200 ml/day) VTE: Lovenox Dispo: Stable, inpatient. Plan for d/c to rehab as soon as renal function stabilizes or improves. Addendum - Attending - Attending Attestation Date/Time: 09/09/19 [id number] I personally evaluated the patient and discussed the management with the team. I agree with the History, Examination, Assessment and Plan documented above with any addition or exceptions noted below.
[2019-09-09] MEDS: Digoxin 0.25 MG TAB PO SCH (08:17)
[2019-09-09] MEDS: Ferrous Sulfate 325 MG TAB PO SCH (08:17)
[2019-09-09] MEDS: Carvedilol 6.25 MG TAB PO SCH ×2 (08:18→17:28)
[2019-09-09] MEDS: Multivit, Therapeutic 1 TAB PO SCH (08:18)
[2019-09-09] MEDS: guaiFENesin ER 600 MG TAB PO SCH ×2 (08:19→20:56)
[2019-09-09] MEDS: Tamsulosin HCl 0.4 MG CAP PO SCH (08:19)
[2019-09-09] MEDS: Enoxaparin Sodium 40 MG/0.4 ML SYRINGE SC SCH (08:19)
[2019-09-09] MEDS: Aspirin Chewable 81 MG TAB PO SCH (08:19)
--- NOTE | 2019-09-09 10:43 | PDOC.CPN ---
- Subjective Date: 09/09/19 Time: 11:05 Interval history: Mr. Rodgers is awake, sitting on the side of the bed, his spouse at bedside. Denies any acute complaints or concerns. No overnight events on telemetry. - Review of Systems General: denies: fever/chills, weight/appetite/sleep changes, night sweats, fatigue Respiratory: reports: cough (nonproductive), shortness of breath Cardiovascular: reports: edema Gastrointestinal: denies: nausea, vomiting, diarrhea, constipation, abd pain, GI bleeding Musculoskeletal: denies: pain, tenderness, stiffness, swelling, arthritis/ arthralgias Neurological: denies: numbness, syncope, seizure, weakness - Objective Allergies/Adverse Reactions: Allergies Allergy/AdvReac Type Severity Reaction Status Date / Time No Known Drug Allergies Allergy Verified 08/03/18 08:42 Visit Medications: Current Medications Acetaminophen (Tylenol) 650 mg PO Q4H PRN PRN Reason: Headache/Fever/Mild Pain (1-3) Last Admin: 09/01/19 20:12 Dose: 650 mg Albuterol/Ipratropium (Duoneb) 3 ml NEB TID-RT [facility] Last Admin: 09/09/19 07:19 Dose: 3 ml Aspirin (Aspirin Chewable) [facility] [place] Last Admin: 09/09/19 08:19 Dose: 81 mg Carvedilol (Coreg) 6.25 mg PO BID-[facility] Last Admin: 09/09/19 08:18 Dose: 6.25 mg Digoxin (Lanoxin) 0.25 mg PO DAILY [facility] Last Admin: 09/09/19 08:17 Dose: 0.25 mg Enoxaparin Sodium (Lovenox) 40 mg SC 0900 [facility] Last Admin: 09/09/19 08:19 Dose: 40 mg Ferrous Sulfate (Feosol) 325 mg PO QAM-[facility] Last Admin: 09/09/19 08:17 Dose: 325 mg Guaifenesin (Mucinex) 1,200 mg PO Q12HR [facility] Last Admin: 09/09/19 08:19 Dose: 1,200 mg Multivitamins (Theragran) 1 tab PO DAILY [facility] Last Admin: 09/09/19 08:18 Dose: 1 tab Ondansetron HCl (Zofran Odt) 4 mg PO Q6H PRN PRN Reason: Nausea/Vomiting Polyethylene Glycol (Miralax) 17 gm PO DAILYPRN PRN PRN Reason: Constipation Last Admin: 09/05/19 14:16 Dose: 17 gm Sodium Chloride (Flush - Normal Saline) 10 ml IVF Q12HR [facility] Last Admin: 09/09/19 08:20 Dose: 10 ml Sodium Chloride (Flush - Normal Saline) 10 ml IVF PRN PRN PRN Reason: Saline Flush Last Admin: 08/25/19 05:25 Dose: 10 ml Tamsulosin HCl (Flomax) 0.4 mg PO QAM [facility] Last Admin: 09/09/19 08:19 Dose: 0.4 mg Vital Signs & Weight: Vital Signs Temp Pulse Resp BP BP Pulse Ox 09/09/19 08:17 66 09/09/19 07:50 97.9 F 66 12 117/64 97 09/09/19 07:20 98 09/09/19 07:19 69 16 09/09/19 03:52 97.7 F 69 18 124/59 L 97 Admit Weight 368 lb 3.2 oz Weight 302 lb - Quality Measures Condition: Heart Failure CV meds: Beta Jennifer: Yes, CHETAN/ARB: No (On hold 2/2 CKD), Statin: No, ASA: Yes , Plavix/Effient/Brilinta: No, Anticoagulant: No - Physical Exam General: alert & oriented x3, appears well, no apparent distress HEENT: mucus membranes moist, normocephaly Neck: supple neck, no JVD/HJR, no bruit Cardiac: no murmur, irregularly regular Lungs: normal breath sounds, no wheeze, rales, rhonchi, oxygen Neuro: grossly intact Abdomen: active bowel sounds, soft, non-tender Extremities: 2+ LE edema Musculoskeletal: normal range of motion - Labs Result Diagrams: 09/06/19 04:49 09/09/19 04:11 Troponin/CKMB CK-MB (CK-2) 2.8 ng/mL (0-6.6) 08/21/19 12:40 Troponin I 0.010 ng/mL (< 0.028) 08/21/19 19:37 - Telemetry Supraventricular conduction: atrial fibrillation - Assessment/Plan Assessment/Plan: 1. 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 Continue to hold Bumex and Entresto, creatinine up today, 2.07. Noel was re- inserted on 09/07/2019; On Coreg 6.25mg BID; not on CHETAN/ARB due to hx of CKD 2. COPD exacerbation - oxygen dependent, continue pulmonary toilet 3. Chronic afib - stable HR with Digoxin and Coreg; Cont. ASA due to hx of Anemia, hx of GI bleed with OAC, and high risk of falls 4. HTN - stable 5. CKD stage 3 - Bumex and Entresto are on hold for worsening of renal function ; Nephrology consulted 6. Sleep apnea with Cpap at HS 7. Anemia - stable 8. Obesity MAR reviewed * Echo on 08/22/2019 with EF 40-45% (50-55% in 09/2017) mild ERV, mild ERA, mild MR, TR, and AL * Echo on 09/06/2019 with EF 40-45%, mod reduced Rt ventricle Systolic Function , mild-mod LAE, mild Tr and AL * Negative stress test in 2018 Repeat BMP in am. Monitor creatinine. RG-Pt seen and examined. slowly improving. Creatinine better. Check BMP
--- NOTE | 2019-09-09 13:56 | PRG ---
DATE OF SERVICE: 09/09/2019 SUBJECTIVE: Patient was seen and examined at bedside and overnight events noted. Patient denies any shortness of breath or chest pain or palpitation. No history of nausea or vomiting or diarrhea or fever or chills or cramps. OBJECTIVE: GENERAL: This is an obese male, in no apparent distress. VITAL SIGNS: Temperature 97.9. Pulse 63. Respiratory rate 24. Blood pressure 117/64. HEENT: Atraumatic, normocephalic. Oral mucosa is moist NECK: Supple. CARDIOVASCULAR: S1, S2 heard. Rate and rhythm regular. RESPIRATORY: Clear to auscultation. GASTROINTESTINAL: Abdomen is soft. MUSCULOSKELETAL: No tenderness. No edema. DERMATOLOGIC: No skin rash. NEUROLOGIC: Alert and awake and oriented X3. No focal neurologic deficits. Moving all the extremities. PSYCHIATRIC: Mood and affect normal. LABORATORY DATA: Potassium 4.2, BUN is 57, and creatinine is . ASSESSMENT AND PLAN: 1. Acute kidney injury on chronic kidney disease stage 2, secondary to cardiorenal syndrome, seems like he is stabilizing. Continue to hold diuretics and nephrotoxins. 2. Hyponatremia, better. 3. Cardiorenal syndrome as above. 4. Edema with fluid overload, better. 5. Hypertension, stable. 6. Chronic anemia. Avoid nephrotoxins and monitor. Renal function seems to be stabilizing. Job ID: [id number]
--- NOTE | 2019-09-10 05:14 | PDOC.FM ---
- Subjective Subjective: Mr. Rodgers is doing well this morning. He has no new complaints. He denies fever, chills, chest pain, shortness of breath. He does endorse weakness. - Objective MAR Reviewed: Yes Vital Signs & Weight: Vital Signs (12 hours) Temp Pulse Resp BP BP BP Pulse Ox 09/10/19 04:00 97.8 F 75 21 H 124/60 99 09/10/19 00:00 63 117/57 L 09/09/19 20:00 98 09/09/19 19:39 98.0 F 72 16 101/51 L 98 09/09/19 18:52 63 16 97 09/09/19 17:28 148/69 H Weight Admit Weight 167.013 kg Weight 137.801 kg Most Recent Monitor Data Heart Rate from ECG 114 NIBP 114/54 NIBP BP-Mean 74 Respiration from ECG 15 SpO2 94 I&O: 09/08/19 09/09/19 09/10/19 06:59 06:59 06:59 Intake Total 1570 1750 990 Output Total 1800 1125 1900 Balance -230 625 -910 Result Diagrams: 09/06/19 04:49 09/10/19 04:41 Phys Exam - Physical Examination Constitutional: NAD HEENT: moist MMs, sclera anicteric Neck: supple, full ROM Respiratory: no wheezing, no rhonchi, clear to auscultation bilateral Fine crackles in the bases. Cardiovascular: no significant murmur, no rub Chronic a-fib Gastrointestinal: soft, non-tender Musculoskeletal: pulses present, edema present trace Neurological: non-focal, moves all 4 limbs Psychiatric: normal affect, A&O x 3 Skin: no rash, normal turgor Dx/Plan (1) Acute on chronic congestive heart failure Code(s): I50.9 - HEART FAILURE, UNSPECIFIED Status: Acute (2) Urinary retention with incomplete bladder emptying Code(s): R33.9 - RETENTION OF URINE, UNSPECIFIED Status: Acute (3) Acute and chronic respiratory failure with hypoxia Code(s): J96.21 - ACUTE AND CHRONIC RESPIRATORY FAILURE WITH HYPOXIA Status: Acute (4) Acute respiratory failure with hypercapnia Code(s): J96.02 - ACUTE RESPIRATORY FAILURE WITH HYPERCAPNIA Status: Acute (5) Atrial fibrillation Code(s): I48.91 - UNSPECIFIED ATRIAL FIBRILLATION Status: Acute Qualifiers: Atrial fibrillation type: unspecified Qualified Code(s): I48.91 - Unspecified atrial fibrillation (6) CKD (chronic kidney disease) Code(s): N18.9 - CHRONIC KIDNEY DISEASE, UNSPECIFIED Status: Chronic Qualifiers: (7) MAY (obstructive sleep apnea) Code(s): G47.33 - OBSTRUCTIVE SLEEP APNEA (ADULT) (PEDIATRIC) Status: Suspected - Plan Plan: KOREY on CKD - Creatinine elevation likely 2/2 to extensive diuresis - Will continue to monitor, once renal function is improving or stable, plan for d/c. - Cr downtrended this morning. Will plan for d/c to rehab today if available. Acute on Chronic HFrEF exacerbation, resolved - Cardiology: Consulted and currently following. - Strict I's/O's and Daily Weights - Planning to d/c to rehab as soon as possible. - Echo on 09/06/2019 with EF 40-45%, mod reduced Rt ventricle Systolic Function , mild-mod LAE, mild Tr and [place] Hypokalemia, resolved - Added K-dur 20 mEq PO BID WM Acute on Chronic Respiratory Failure with Hypoxia, resolved - On O2 chronically Hyperbilirubinemia, resolved A-Fib, Rhythm and Rate-Controlled - CHADSVASc: 4 - HASBLED: 3 - Hx of GI Bleed on Anticoagulation and thus had been DC'd at previous admission - Has been in A-Fib since admission, but rate-controlled - Cardiology: Consulted - recs appreciated Microcytic Anemia, Chronic - PO iron replacement. HTN - Entresto discontinued 2/2 renal function. Recommend f/u outpatient with cardiology once KOREY has resolved. BPH with Acute Obstruction - Guadalupe replaced by Urology, patient will require outpatient f/u and management. He will be d/c-ed with indwelling guadalupe catheter. PCP: Dr. Samson Code: Full IVF: SL Diet: HH w/ Low Sodium, Fluid Restriction (1200 ml/day) VTE: Lovenox Dispo: Stable, inpatient. Plan for d/c to rehab as soon as renal function stabilizes or improves. Addendum - Attending - Attending Attestation Date/Time: 09/10/19 [id number] I personally evaluated the patient and discussed the management with the team. I agree with the History, Examination, Assessment and Plan documented above with any addition or exceptions noted below. Hopeful transfer today.
[2019-09-10 05:21] LABS: Anion Gap 11 mmol/L (10-20); BUN (Urea Nitrogen) 60 mg/dL (8.4-25.7); Calc. Creatinine Clearance 68 mL/min (70-130); Calcium 8.9 mg/dL (7.8-10.44); Carbon Dioxide 32 mmol/L (23-31); Chloride 99 mmol/L (98-107); Estimated GFR-MDRD 39; Glucose 109 mg/dL (83-110); Potassium 4.2 mmol/L (3.5-5.1); Sodium 138 mmol/L (136-145)
[2019-09-10] MEDS: Digoxin 0.25 MG TAB PO SCH (09:54)
[2019-09-10] MEDS: Carvedilol 6.25 MG TAB PO SCH ×2 (09:55→17:25)
[2019-09-10] MEDS: Aspirin Chewable 81 MG TAB PO SCH (09:55)
[2019-09-10] MEDS: Ferrous Sulfate 325 MG TAB PO SCH (09:55)
[2019-09-10] MEDS: Multivit, Therapeutic 1 TAB PO SCH (09:55)
[2019-09-10] MEDS: guaiFENesin ER 600 MG TAB PO SCH ×2 (09:55→22:14)
[2019-09-10] MEDS: Tamsulosin HCl 0.4 MG CAP PO SCH (09:55)
[2019-09-10] MEDS: Enoxaparin Sodium 40 MG/0.4 ML SYRINGE SC SCH (09:56)
--- NOTE | 2019-09-10 10:18 | PDOC.CPN ---
- Subjective Date: 09/10/19 Time: 10:15 Interval history: Patient without complaint other than dry nose from [place]. - Review of Systems General: denies: fever/chills, weight/appetite/sleep changes, night sweats, fatigue Respiratory: denies: cough, congestion, shortness of breath, exercise intolerance Cardiovascular: denies: chest pain, palpitation, edema, paroxysmal nocturnal dyspnea, orthopnea Gastrointestinal: denies: nausea, vomiting, diarrhea, constipation, abd pain, GI bleeding Musculoskeletal: denies: pain, tenderness, stiffness, swelling, arthritis/ arthralgias Neurological: denies: numbness, syncope, seizure, weakness - Objective Allergies/Adverse Reactions: Allergies Allergy/AdvReac Type Severity Reaction Status Date / Time No Known Drug Allergies Allergy Verified 08/03/18 08:42 Visit Medications: Current Medications Acetaminophen (Tylenol) 650 mg PO Q4H PRN PRN Reason: Headache/Fever/Mild Pain (1-3) Last Admin: 09/01/19 20:12 Dose: 650 mg Albuterol/Ipratropium (Duoneb) 3 ml NEB TID-RT [facility] Last Admin: 09/10/19 07:57 Dose: 3 ml Aspirin (A[facility]in Chewable) [facility] [place] Last Admin: 09/10/19 09:55 Dose: 81 mg Carvedilol (Coreg) 6.25 mg PO BID-[facility] Last Admin: 09/10/19 09:55 Dose: 6.25 mg Digoxin (Lanoxin) 0.25 mg PO DAILY [facility] Last Admin: 09/10/19 09:54 Dose: 0.25 mg Enoxaparin Sodium (Lovenox) 40 mg SC 0900 [facility] Last Admin: 09/10/19 09:56 Dose: 40 mg Ferrous Sulfate (Feosol) 325 mg PO QAM-[facility] Last Admin: 09/10/19 09:55 Dose: 325 mg Guaifenesin (Mucinex) 1,200 mg PO Q12HR [facility] Last Admin: 09/10/19 09:55 Dose: 1,200 mg Multivitamins (Theragran) 1 tab PO DAILY [facility] Last Admin: 09/10/19 09:55 Dose: 1 tab Ondansetron HCl (Zofran Odt) 4 mg PO Q6H PRN PRN Reason: Nausea/Vomiting Polyethylene Glycol (Miralax) 17 gm PO DAILYPRN PRN PRN Reason: Constipation Last Admin: 09/05/19 14:16 Dose: 17 gm Sodium Chloride (Flush - Normal Saline) 10 ml IVF Q12HR [facility] Last Admin: 09/10/19 09:56 Dose: 10 ml Sodium Chloride (Flush - Normal Saline) 10 ml IVF PRN PRN PRN Reason: Saline Flush Last Admin: 08/25/19 05:25 Dose: 10 ml Tamsulosin HCl (Flomax) 0.4 mg PO QAM [facility] Last Admin: 09/10/19 09:55 Dose: 0.4 mg Vital Signs & Weight: Vital Signs Temp Pulse Resp BP BP BP Pulse Ox 09/10/19 09:55 126/58 L 09/10/19 09:54 77 126/58 L 09/10/19 08:16 97.5 F L 69 18 90/55 L 99 09/10/19 07:57 75 16 09/10/19 04:00 97.8 F 75 21 H 124/60 99 09/10/19 00:00 63 117/57 L Admit Weight 368 lb 3.2 oz Weight 303 lb 12.8 oz - Quality Measures Condition: Heart Failure CV meds: Beta Jennifer: Yes, CHETAN/ARB: No (On hold 2/2 CKD), Statin: No, ASA: Yes , Plavix/Effient/Brilinta: No, Anticoagulant: No - Physical Exam General: alert & oriented x3, appears well HEENT: normocephaly, EOMI Neck: supple neck, no masses Cardiac: other (IRR IRR) Lungs: clear to auscultation Neuro: grossly intact Abdomen: soft, non-tender Extremities: no clubbing, 1+ LE edema Skin: clear Musculoskeletal: normal range of motion - Labs Result Diagrams: 09/06/19 04:49 09/10/19 04:41 Troponin/CKMB CK-MB (CK-2) 2.8 ng/mL (0-6.6) 08/21/19 12:40 Troponin I 0.010 ng/mL (< 0.028) 08/21/19 19:37 - Assessment/Plan Assessment/Plan: 1. 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 Minimal edema. guadalupe in place. 2. COPD exacerbation - stable 3. Chronic afib - rate-controlled. Off ACT due to history of GIB 4. HTN - stable 5. MALCOLM/CKD stage 3 - improved Cr today. No ARB. May need to resume bumex in the future 6. Sleep apnea with Cpap at HS 7. Anemia - unchanged 8. Obese - unchanged for years Overall doing well. BP low this AM, but now 124/58mmHg. Discussed plan of care with patient and . Ok for transfer to rehab today. Serial BMP monitoring Cr. May need to resume Bumex in the future. F/U as outpatient per Dr. Harrison.
--- NOTE | 2019-09-10 14:06 | PRG ---
DATE OF SERVICE: 09/10/2019 SUBJECTIVE: Patient was seen and examined at bedside and overnight events noted. Patient denies any shortness of breath or chest pain or palpitation. No history of nausea or vomiting or diarrhea or fever or chills or cramps. OBJECTIVE: GENERAL: This is a morbidly obese male, in no acute distress. VITAL SIGNS: Temperature 97.7, pulse 64, respiratory rate 14. Blood pressure 137/70. HEENT: Atraumatic, normocephalic. Oral mucosa is moist NECK: Supple. CARDIOVASCULAR: S1, S2 heard. Rate and rhythm regular. RESPIRATORY: Clear to auscultation. GASTROINTESTINAL: Abdomen is soft. MUSCULOSKELETAL: No tenderness. No edema. DERMATOLOGIC: No skin rash. NEUROLOGIC: Alert and awake and oriented X3. No focal neurologic deficits. Moving all the extremities. PSYCHIATRIC: Mood and affect normal. LABORATORY DATA: Potassium 4.2, BUN is 60, creatinine is 1.7. ASSESSMENT AND PLAN: 1. Acute kidney injury on chronic kidney disease stage 3. Renal function much better. Continue to hold diuretics as tolerated. Monitor fluid status and edema. 2. Hyponatremia. Limit fluid intake. 3. Cardiorenal syndrome. Lasix on hold and restart as indicated. 4. Edema with fluid overload. 5. Hypertension. 6. Chronic anemia. 7. Renal function is better. We will follow. Job ID: [id number]
[2019-09-11 05:22] LABS: Anion Gap 9 mmol/L (10-20); BUN (Urea Nitrogen) 56 mg/dL (8.4-25.7); Calc. Creatinine Clearance 72 mL/min (70-130); Carbon Dioxide 34 mmol/L (23-31); Chloride 99 mmol/L (98-107); Estimated GFR-MDRD 41; Glucose 101 mg/dL (83-110); Potassium 4.4 mmol/L (3.5-5.1); Sodium 138 mmol/L (136-145)
--- NOTE | 2019-09-11 05:42 | PDOC.FM ---
- Subjective Subjective: Pt is doing well today. He remains with guadalupe catheter due to failed voiding trial and will follow up with nephro in outpt setting. He has good diuresis. He denies shortness of breath. He is able to ambulate. - Objective Vital Signs & Weight: Vital Signs (12 hours) Temp Pulse Resp BP BP Pulse Ox 09/11/19 03:53 98.4 F 67 16 128/63 94 L 09/10/19 20:00 97.5 F L 62 20 134/59 L 98 09/10/19 18:59 68 12 99 Weight Admit Weight 167.013 kg Weight 140.205 kg Most Recent Monitor Data Heart Rate from ECG 114 NIBP 114/54 NIBP BP-Mean 74 Respiration from ECG 15 SpO2 94 I&O: 09/09/19 09/10/19 09/11/19 06:59 06:59 06:59 Intake Total 1750 990 800 Output Total 1125 1900 450 Balance 625 -910 350 Result Diagrams: 09/06/19 04:49 09/11/19 03:30 Phys Exam - Physical Examination Constitutional: NAD HEENT: PERRLA, moist MMs Respiratory: no wheezing, no rales, no rhonchi, clear to auscultation bilateral Decreased air movement Cardiovascular: no significant murmur Irregular rhythm Gastrointestinal: soft, non-tender, positive bowel sounds mildly distended but not rigid Musculoskeletal: pulses present trace LE edema Neurological: moves all 4 limbs Psychiatric: normal affect, A&O x 3 Dx/Plan (1) Cardiorenal syndrome Code(s): I13.10 - HYP HRT & CHR KDNY DIS W/O HRT FAIL, W STG 1-4/UNSP CHR KDNY Status: Acute (2) Edema Code(s): R60.9 - EDEMA, UNSPECIFIED Status: Acute (3) Acute on chronic congestive heart failure Code(s): I50.9 - HEART FAILURE, UNSPECIFIED Status: Acute (4) Urinary retention with incomplete bladder emptying Code(s): R33.9 - RETENTION OF URINE, UNSPECIFIED Status: Acute (5) Acute and chronic respiratory failure with hypoxia Code(s): J96.21 - ACUTE AND CHRONIC RESPIRATORY FAILURE WITH HYPOXIA Status: Acute (6) Atrial fibrillation Code(s): I48.91 - UNSPECIFIED ATRIAL FIBRILLATION Status: Acute Qualifiers: Atrial fibrillation type: unspecified Qualified Code(s): I48.91 - Unspecified atrial fibrillation (7) CKD (chronic kidney disease) Code(s): N18.9 - CHRONIC KIDNEY DISEASE, UNSPECIFIED Status: Chronic Qualifiers: (8) Hypertension Code(s): I10 - ESSENTIAL (PRIMARY) HYPERTENSION Status: Chronic Qualifiers: - Plan Plan: KOREY on CKD - Will continue to monitor, once renal function is improving or stable, plan for d/c. - Cr downtrended this morning. Will plan for d/c to rehab today if available. - Will need to start a diuretic on discharge Acute on Chronic HFrEF exacerbation, resolved - Cardiology: Consulted and currently following. - Strict I's/O's and Daily Weights - Planning to d/c to rehab as soon as possible. - Echo on 09/06/2019 with EF 40-45%, mod reduced Rt ventricle Systolic Function , mild-mod LAE, mild Tr and LA - Diuretic on d/c Hypokalemia, resolved - Added K-dur 20 mEq PO BID WM Acute on Chronic Respiratory Failure with Hypoxia, resolved - On O2 chronically Hyperbilirubinemia, resolved A-Fib, Rhythm and Rate-Controlled - CHADSVASc: 4 - HASBLED: 3 - Hx of GI Bleed on Anticoagulation and thus had been DC'd at previous admission - Has been in A-Fib since admission, but rate-controlled - Cardiology: Consulted - recs appreciated Microcytic Anemia, Chronic - PO iron replacement. HTN - Entresto discontinued 2/2 renal function. Recommend f/u outpatient with cardiology once KOREY has resolved. BPH with Acute Obstruction - Guadalupe replaced by Urology, patient will require outpatient f/u and management. He will be d/c-ed with indwelling guadalupe catheter. PCP: Dr. Samson Code: Full IVF: SL Diet: HH w/ Low Sodium, Fluid Restriction (1200 ml/day) VTE: Lovenox Dispo: Stable, inpatient. Plan for d/c to rehab as soon as renal function stabilizes or improves. Addendum - Attending - Attending Attestation Date/Time: 09/11/19 [id number] I personally evaluated the patient and discussed the management with Dr. Brown I agree with the History, Examination, Assessment and Plan documented above with any addition or exceptions noted below. will reach out to cardiology before d/c to determine how he should be resumed on diuretic therapy. placement pending. d/c once placement arranged.
--- NOTE | 2019-09-11 07:56 | PRG ---
DATE OF SERVICE: 09/11/2019 SUBJECTIVE: The patient without complaints, awaiting bed at rehab. OBJECTIVE: VITAL SIGNS: Stable. He is afebrile. ABDOMEN: Morbidly obese, protuberant. GENITOURINARY: Noel catheter with clear concentrated urine. EXTREMITIES: Significant decrease in pitting edema, anasarca status. LABORATORY DATA: Creatinine is 1.6. IMPRESSION AND PLAN: Mr. Rodgers is a 78-year-old male, admitted for congestive heart failure exacerbation, had aggressive diuresis, reflected by his recent renal insufficiency. He is euvolemic and await rehab facility. Failed voiding trial with initial PVR 1100, subsequent PVR about 400. He has an appointment with me as an outpatient for catheter removal and repeat voiding trial same day as oliva c Cardiology. No new recommendations, discharge to rehab when bed available. Job ID: [id number] MTDD
--- NOTE | 2019-09-11 08:34 | PDOC.CPN ---
- Subjective Date: 09/11/19 Time: 08:39 Interval history: The pt seen and examined. No overnight events. No cardiac complaints. He and family stated TEDs really help for BLE edema. - Objective Allergies/Adverse Reactions: Allergies Allergy/AdvReac Type Severity Reaction Status Date / Time No Known Drug Allergies Allergy Verified 08/03/18 08:42 Visit Medications: Current Medications Acetaminophen (Tylenol) 650 mg PO Q4H PRN PRN Reason: Headache/Fever/Mild Pain (1-3) Last Admin: 09/01/19 20:12 Dose: 650 mg Albuterol/Ipratropium (Duoneb) 3 ml NEB TID-RT [facility] Last Admin: 09/11/19 07:57 Dose: 3 ml Aspirin (Aspirin Chewable) [facility] [place] Last Admin: 09/10/19 09:55 Dose: 81 mg Carvedilol (Coreg) 6.25 mg PO BID-[facility] Last Admin: 09/10/19 17:25 Dose: 6.25 mg Digoxin (Lanoxin) 0.125 mg PO DAILY [facility] Enoxaparin Sodium (Lovenox) 40 mg SC 0900 [facility] Last Admin: 09/10/19 09:56 Dose: 40 mg Ferrous Sulfate (Feosol) 325 mg PO QAM-[facility] Last Admin: 09/10/19 09:55 Dose: 325 mg Guaifenesin (Mucinex) 1,200 mg PO Q12HR [facility] Last Admin: 09/10/19 22:14 Dose: 1,200 mg Multivitamins (Theragran) 1 tab PO DAILY [facility] Last Admin: 09/10/19 09:55 Dose: 1 tab Ondansetron HCl (Zofran Odt) 4 mg PO Q6H PRN PRN Reason: Nausea/Vomiting Polyethylene Glycol (Miralax) 17 gm PO DAILYPRN PRN PRN Reason: Constipation Last Admin: 09/05/19 14:16 Dose: 17 gm Sodium Chloride (Flush - Normal Saline) 10 ml IVF Q12HR [facility] Last Admin: 09/10/19 22:15 Dose: 10 ml Sodium Chloride (Flush - Normal Saline) 10 ml IVF PRN PRN PRN Reason: Saline Flush Last Admin: 08/25/19 05:25 Dose: 10 ml Tamsulosin HCl (Flomax) 0.4 mg [facility] [place] Last Admin: 09/10/19 09:55 Dose: 0.4 mg Vital Signs & Weight: Vital Signs Temp Pulse Resp BP Pulse Ox 09/11/19 07:57 67 16 09/11/19 03:53 98.4 F 67 16 128/63 94 L Admit Weight 368 lb 3.2 oz Weight 306 lb 12.8 oz - Quality Measures Condition: Heart Failure CV meds: Beta Jennifer: Yes, CHETAN/ARB: No (On hold 2/2 CKD), Statin: No, ASA: Yes , Plavix/Effient/Brilinta: No, Anticoagulant: No - Physical Exam General: alert & oriented x3 HEENT: mucus membranes moist Cardiac: irregularly regular Lungs: decreased breath sounds, bibasilar rales Neuro: cranial nerve 2-12 intact Abdomen: unremarkable Extremities: other: (1-2+ pitting BLE edema) - Labs Result Diagrams: 09/06/19 04:49 09/11/19 03:30 Troponin/CKMB CK-MB (CK-2) 2.8 ng/mL (0-6.6) 08/21/19 12:40 Troponin I 0.010 ng/mL (< 0.028) 08/21/19 19:37 - Telemetry Supraventricular conduction: atrial fibrillation - Assessment/Plan Assessment/Plan: 1. Acute on chronic combined HF - Dobutamin drip is off on 09/05/2019;urine output yesterday was 1900ml;May resume Bumex from tomorrow; Entresto will be resumed with stable renal function; Noel was re-inserted on 09/07/2019; On Coreg 6.25mg BID; not on CHETAN/ARB due to hx of CKD 2. COPD exacerbation - he has been Home O2 PRN at home; managed by pulmonology service 3. Chronic afib - stable HR with Coreg and Digoxin which will decrease to 0.125mg qd due to hx of CKD; Cont. ASA due to hx of Anemia, hx of GI bleed with OAC, and high risk of falls; will check Dig level tomorrow 4. HTN - stable 5. CKD stage 3 - Bumex and Entresto are on hold for worsening of renal function ; appreciate nephrology input! 6. Sleep apnea with Cpap at HS 7. Anemia - unchanged 8. Obese - weight management education with regular exercise given to the pt and family MAR reviewed * Echo on 08/22/2019 with EF 40-45% (50-55% in 09/2017) mild ERV, mild ERA, mild MR, TR, and NJ * Echo on 09/06/2019 with EF 40-45%, mod reduced Rt ventricle Systolic Function , mild-mod LAE, mild Tr and NJ * Negative stress test in 2018 * Waiting for transfer to rehab Pt. seen and eval. by me. I agree with the A/P by the [employer]. He is stable to transfer to rehab. I would hold off of the diuretics until the renal function is back to normal. The resume. Check BMP in 2 days at rehab. I will see him back i the office in 2-4 weeks. jossie
[2019-09-11] MEDS ORDERED: Digoxin 0.125 MG TAB PO SCH (09:00)
[2019-09-11] MEDS: Aspirin Chewable 81 MG TAB PO SCH (09:07)
[2019-09-11] MEDS: guaiFENesin ER 600 MG TAB PO SCH (09:08)
[2019-09-11] MEDS: Multivit, Therapeutic 1 TAB PO SCH (09:08)
[2019-09-11] MEDS: Carvedilol 6.25 MG TAB PO SCH (09:08)
[2019-09-11] MEDS: Ferrous Sulfate 325 MG TAB PO SCH (09:09)
[2019-09-11] MEDS: Tamsulosin HCl 0.4 MG CAP PO SCH (09:12)
[2019-09-11] MEDS: Enoxaparin Sodium 40 MG/0.4 ML SYRINGE SC SCH (09:12)
--- NOTE | 2019-09-11 09:15 | CON ---
DATE OF CONSULTATION: 09/08/2019 CONSULTING PHYSICIAN: Dr. Hemphill. REASON FOR CONSULTATION: Acute kidney injury. REASON FOR ADMISSION: Fluid retention, shortness of breath. HISTORY OF PRESENT ILLNESS: This is a 78-year-old male with history of CHF, hypertension, CKD, COPD, came to the hospital with fluid retention and shortness of breath and is being diuresed for CHF exacerbation. He had a baseline creatinine of around 1.1 to 1.2 and this morning was 1.98. Nephrology was consulted. His diuretics are on hold. The patient reports almost losing 100 pounds since admission that is in two weeks. Per the records, he has lost almost 73 pounds. No fever or chills. The patient denied any dizziness. No chest pain or palpitation. Dr. Harrison is also on the case. PAST MEDICAL HISTORY: Positive for CHF, hypertension, CKD, COPD, and atrial fibrillation. PAST SURGICAL HISTORY: Right knee replacement. HOME MEDICATIONS: 1. Furosemide. 2. Aspirin. 3. Multivitamin. 4. Tamsulosin. 5. Amlodipine. 6. Celecoxib. ALLERGIES: NO KNOWN DRUG ALLERGIES. SOCIAL HISTORY: Report quitting smoking and denies alcohol use. FAMILY HISTORY: No history of any kidney disease. REVIEW OF SYSTEMS: CONSTITUTIONAL: Negative for weight loss or gain, ability to conduct usual activities. SKIN: Negative for rash, itching. EYES: Negative for double vision, pain. ENT/MOUTH: Negative for nose bleeding, neck stiffness, pain, tenderness. CARDIOVASCULAR: Negative for palpitations, dyspnea on exertion, orthopnea. RESPIRATORY: Negative for shortness of breath, wheezing, cough, hemoptysis, fever or night sweats. GASTROINTESTINAL: Negative for poor appetite, abdominal pain, heartburn, nausea, vomiting, constipation, or diarrhea. GENITOURINARY: Negative for urgency, frequency, dysuria, nocturia. MUSCULOSKELETAL: Negative for pain, swelling. NEUROLOGIC/PSYCHIATRIC: Negative for anxiety, depression. ALLERGY/IMMUNOLOGIC: Negative for skin rash, bleeding tendency. PHYSICAL EXAMINATION: GENERAL: This is a well-built male, in no apparent distress. VITAL SIGNS: Temperature 98.1, pulse 72, respiratory rate 18, and blood pressure 104/64. HEENT: Atraumatic, normocephalic. Oral mucosa moist. NECK: Supple. CARDIOVASCULAR: S1, S2. Regular rate and rhythm. RESPIRATORY: Clear. GASTROINTESTINAL: Abdomen is soft. MUSCULOSKELETAL: NEUROLOGIC: Alert and awake. PSYCHIATRIC: Mood and affect normal. LABORATORY DATA: Potassium is 4.1, BUN is 51, creatinine is 1.9, hemoglobin is 9.7. ASSESSMENT AND PLAN: 1. Acute kidney injury on chronic kidney disease, stage 2, most likely cardiorenal syndrome. Agree with holding diuretics and Entresto. I will monitor. 2. Avoid nephrotoxins and renally dose the medications. 3. . 4. Hyperchloremia. 5. Azotemia. 6. Anemia of chronic disease. 7. Microcytosis. 8. Edema. 9. Cardiorenal syndrome. 10. Fluid overload, better. 11. History of hypertension, stable. 12. Hold diuretics and avoid nephrotoxins. We will monitor renal function. Thank you for the consult. Job ID: [id number]
--- NOTE | 2019-09-11 11:47 | PRG ---
DATE OF SERVICE: SUBJECTIVE: A 78-year-old gentleman being seen for acute kidney injury. The patient denied nausea, vomiting, or chest pain. OBJECTIVE: GENERAL: The patient is awake, alert. VITAL SIGNS: Afebrile. Pulse 75, breathing 16, blood pressure was 137/62. Awake, alert, in no acute distress. GENERAL APPEARANCE AND MENTAL STATUS: Fair. HEAD/NECK: Normocephalic. Atraumatic. EYES: EOMI. No deformity. EARS: Clear. No ulcers. NOSE: Intact. No lesions. MOUTH: Clear. No discharge. THROAT: Clear. No exudate. LUNGS: Clear. No crackles. CARDIAC: S1, S2. No rub. ABDOMEN: Benign. Bowel sounds positive. GENITALIA/RECTUM: Noel absent. BACK/EXTREMITIES: Edema 0+. NEUROLOGICAL: Alert and motor intact. SKIN: LYMPHATICS: LABORATORY DATA: Labs reviewed. ASSESSMENT AND PLAN: 1. Acute kidney injury with chronic kidney disease, stage 3, improved. 2. Hypertension, stable. 3. Anemia, stable. 4. Medication based on GFR appropriate. No indication for dialysis. Job ID: [id number]
[2019-09-11 16:08] VITALS: BP 148/66; TEMP 97.9
--- NOTE | 2019-09-12 01:48 | DIS ---
DATE OF ADMISSION: 08/21/2019 DATE OF DISCHARGE: 09/11/2019 RESIDENT: Fan Brown DO ADMITTING ATTENDING: Aron Santos MD DISCHARGE ATTENDING: Aron Santos MD CONSULTS: 1. Cardiology, Dr. Magaly Harrison. 2. Nephrology, Dr. Suze Murcia. 3. Pulmonology, Dr. Ulysses Sandoval. 4. Cardiac rehab. PROCEDURES: 1. Chest x-ray on 08/21/2019, revealed right pleural effusion and associated atelectasis, superimposed on elevated right hemidiaphragm. Enlargement of the cardiac silhouette. The right cardiac border is not visualized. There is mild pulmonary vascular congestion present. Correlation for mild CHF recommended. 2. Chest x-ray on 08/22/2019, revealed cardiomegaly and small right pleural effusion. 3. Echocardiogram on 08/22/2019, revealed ejection fraction of 40% to 45%. The patient was in atrial fibrillation. Tachycardic. Mildly enlarged right ventricular cavity. 4. Bilateral lower extremity ultrasound revealed [id number] peripheral vascular disease with suspicion of level of stenosis being the iliac arteries. 5. Chest x-ray on 08/24/2019, revealed stable appearing chest with cardiomegaly, vascular congestion, right pleural changes and minimal parenchymal changes. 6. Echocardiogram on 09/06/2019, revealed atrial fibrillation. Ejection fraction visually estimated at 40% to 45% with probable diastolic function, cannot assess with atrial fibrillation. Right ventricle revealed global systolic function moderately reduced. The left atrium is [id number] dilated. Mildly enlarged right atrial size. Mild mitral annular calcification is present. Aortic valve leaflets are somewhat thickened. Mild tricuspid regurgitation. Mild pulmonic regurgitation present. PRIMARY DIAGNOSES: 1. Cardiorenal syndrome. 2. Lower extremity edema. 3. Acute on chronic congestive heart failure. 4. Heart failure, reduced ejection fraction. 5. Urinary retention with incomplete bladder emptying. 6. Acute on chronic respiratory failure with hypoxia. 7. Atrial fibrillation with RVR. 8. Chronic kidney disease. 9. Hypertension. DISCHARGE MEDICATIONS: 1. Aspirin 81 mg p.o. q.a.m. 2. Multivitamin one tablet p.o. q.a.m. 3. Flomax 0.4 mg p.o. q.a.m. 4. Amlodipine 10 mg p.o. daily. 5. Celecoxib 200 mg p.o. daily. 6. Coreg 6.25 mg p.o. b.i.d. 7. Digoxin 0.25 mg p.o. daily. 8. Ferrous sulfate 325 mg p.o. q.a.m. 9. Mucinex 1200 mg p.o. q.12 hours. 10. MiraLAX 17 g p.o. daily p.r.n. constipation. 11. DuoNeb 3 mL neb t.i.d. p.r.n. DISCONTINUED MEDICATIONS: Lasix 80 mg p.o. daily. HISTORY OF PRESENT ILLNESS/HOSPITAL COURSE: Mr. Quintin Rodgers is a 78-year-old male who presented initially with lower extremity congestion and edema. He says that over the last several weeks, he noticed progressive fluid retention to the point of lower extremity and scrotal swelling. He had been seen by his PCP in the outpatient setting, who told him just to watch it referencing to his fluid level, but he continued to gain weight. He was then seen by Urology, Dr. Cruz; Cardiology, Dr. Harrison, who sent him to the emergency department for evaluation. The patient was found to be in atrial fibrillation and chronic heart failure with severe congestion in his lower extremities. He was initially started on diltiazem drip for his atrial fibrillation and placed on Bumex to help with diuresis. His home Lasix 80 mg was discontinued as it was not having much of effect. This is likely secondary to anasarca. Few days with treatment, the patient returned to normal sinus rhythm. He was taken off the diltiazem drip and placed on digoxin due to his significant edema and suppressed ejection fraction. Echocardiogram revealed his EF was 40% to 45%. Subsequently, he was also placed on a dobutamine drip. This did help with his diuresis. He required weeks of dobutamine and Bumex therapy to help with the alleviation of his fluid. On 09/06/2019, he was discontinued from dobutamine and restarted on his Coreg 6.25 mg b.i.d. for cardiac protection. Due to his history of CKD, he was not started on CHETAN inhibitor or ARB. Few days before discharge, the patient became euvolemic and his creatinine began to elevate. At this time, Bumex was discontinued to help with renal function. He will need to be followed up with a BMP on 09/13/2019, to assess his kidney function. If he is back to baseline, creatinine around 1, then he can be restarted on torsemide 20 mg daily. The patient in total ended up diuresing greater than 40 L. His admission weight was 160 kg. His discharge weight was 139 kg. In regard to his atrial fibrillation, he was discharged with Coreg and digoxin. He was not continued on any anticoagulant due to his history of GI bleed. His blood pressures remained stable through the visit. The patient currently has chronic kidney disease stage 3, he is not on an CHETAN inhibitor. He will need to continue to follow with Nephrology in the outpatient setting. In regard to sleep apnea, he continued to use CPAP through the evening. He is to continue this in the outpatient setting. Cardiology will follow up with the patient in the outpatient setting. At that time, they will consider starting Entresto. Of note, he did require an indwelling catheter for urinary retention. He will be discharged with a urinary catheter in place and follow up with Nephrology in the outpatient setting. DISPOSITION: Stable. DISCHARGE INSTRUCTIONS: 1. Location: [facility]. 2. Diet: Heart healthy and 1800 mL limitation. 3. Activity: Ad jenaro. 4. Follow up with cardiac rehab, who will contact the patient. 5. Follow up with Dr. Samson as soon as he is discharged from [facility]. 6. Follow up with Dr. Steve Harrison on 09/25/2019 at 9 am. 7. Follow up with Dr. Maura Cruz on 09/25 at 11:15 a.m. Job ID: [id number] [email or web address]
== END 2019-09-11 17:53 | DRG 291 ==
LOC: ERS 12:15 → 2NO 16:32 → IMCU/EMU 08-24 11:07 → 2SE 08-28 15:42 → 2NO 08-30 17:25
PROVIDERS: ADMIT Student in an Organized Health Care Education/Training Program; ATTEND Student in an Organized Health Care Education/Training Program
PROC: 5A09557 Assistance with Respiratory Ventilation, Greater than 96 Consecutive Hours, Continuous Positive Airway Pressure (ICD-10-PCS; 2019-08-21)
PROC: 0T9B70Z Drainage of Bladder with Drainage Device, Via Natural or Artificial Opening (ICD-10-PCS; principal; 2019-08-25)
DX: I13.0 Hypertensive heart and chronic kidney disease with heart failure and stage 1 through stage 4 chronic kidney disease, or unspecified chronic kidney disease (principal); J96.21 Acute and chronic respiratory failure with hypoxia; J96.22 Acute and chronic respiratory failure with hypercapnia; I50.43 Acute on chronic combined systolic (congestive) and diastolic (congestive) heart failure; E66.2 Morbid (severe) obesity with alveolar hypoventilation; Z68.42 Body mass index [BMI] 45.0-49.9, adult; J44.1 Chronic obstructive pulmonary disease with (acute) exacerbation; I48.20 Chronic atrial fibrillation, unspecified; N13.8 Other obstructive and reflux uropathy; N17.9 Acute kidney failure, unspecified; E87.1 Hypo-osmolality and hyponatremia; N18.3 Chronic kidney disease, stage 3 (moderate); D63.1 Anemia in chronic kidney disease; N40.1 Benign prostatic hyperplasia with lower urinary tract symptoms; R33.8 Other retention of urine; K76.1 Chronic passive congestion of liver; I37.1 Nonrheumatic pulmonary valve insufficiency; I08.1 Rheumatic disorders of both mitral and tricuspid valves; I25.10 Atherosclerotic heart disease of native coronary artery without angina pectoris; D50.9 Iron deficiency anemia, unspecified; Z96.651 Presence of right artificial knee joint; E87.8 Other disorders of electrolyte and fluid balance, not elsewhere classified; E87.6 Hypokalemia; T50.2X5A Adverse effect of carbonic-anhydrase inhibitors, benzothiadiazides and other diuretics, initial encounter; Z87.891 Personal history of nicotine dependence; Z79.82 Long term (current) use of aspirin; Z79.899 Other long term (current) drug therapy; Z99.81 Dependence on supplemental oxygen; Z85.51 Personal history of malignant neoplasm of bladder
CPT/HCPCS: 36415; 36416; 51702; 71045; 80048; 80053; 80061; 81001; 82247; 82553; 82728; 82805; 83550; 83605; 83735; 83880; 84443; 84484; 85025; 85027; 87086; 88121; 93005; 93306; 93922; 94640; 94660; 96365; 96366; 96375; 96376; J1250; J1650; J1940; J2760; J3490; J7620

== ENCOUNTER 2019-10-13 09:57 | Outpatient (CLI) | payer MEDICARE, OTHER ==
--- NOTE | 2019-10-13 12:10 | RAD ---
PA AND LATERAL VIEWS CHEST: HISTORY: Dyspnea. COMPARISON: 09/15/2019. FINDINGS: There is continued elevation of the right hemidiaphragm. The heart size is borderline. Aorta is tor tuous. No lobar consolidation, pneumothoraces, or pleural effusions are seen. IMPRESSION: No acute process. POS: [facility]
== END 2019-10-13 09:58 | disposition home or self-care (01) ==
LOC: RAD 09:57
PROVIDERS: ATTEND Internal Medicine Critical Care Medicine
DX: R06.00 Dyspnea, unspecified (principal)
CPT/HCPCS: 71046

== ENCOUNTER 2019-12-13 09:06 | Outpatient (CLI) | payer MEDICARE, OTHER ==
--- NOTE | 2019-12-13 09:51 | RAD ---
TWO VIEWS CHEST: Comparison: 10-13-2019 History: Dyspnea. FINDINGS: Two views of the chest shows a cardiomediastinal silhouette which is upper limits of normal in size. The previously seen right pleural effusion is no longer visualized. Atelectasis is seen in the right lung base. Atherosclerotic calcifications are seen in the aorta. Degenerative changes are seen in the spine. IMPRESSION: Right basilar atelectasis. POS: [facility]
== END 2019-12-13 09:07 | disposition home or self-care (01) ==
LOC: RAD 09:06
PROVIDERS: ATTEND Internal Medicine Critical Care Medicine
DX: R06.00 Dyspnea, unspecified (principal); J98.11 Atelectasis
CPT/HCPCS: 71046

== ENCOUNTER 2019-12-17 13:01 | Inpatient (IN) | payer MEDICARE, OTHER ==
[2019-12-17] MEDS ORDERED: Atropine Sulfate 1 mg/10 ml Syringe ONE (13:14)
[2019-12-17 13:37] LABS: #Eosinphils 0.1 thou/uL (0.0-0.7); #Lymphocytes 1.3 thou/uL (1.20-3.40); #Monocytes 1.1 thou/uL (0.11-0.59); #Neutrophils 8.8 thou/uL (1.40-6.50); %Eosinophils 0.5 % (0.0-10.0); %Lymphocytes 11.5 % (21.0-51.0); %Monocytes 9.4 % (0.0-10.0); %Neutrophils 78.5 % (42.0-75.0); Hemoglobin 11.7 g/dL (14.0-18.0); Mean Corpuscular HGB CONC 29.5 g/dL (32.0-36.0); Mean Corpuscular Hemoglobin 24.8 pg (27.0-31.0); Mean Corpuscular Volume 84.2 fL (78.0-98.0); Mean Platelet Volume 8.5 fL (7.4-10.4); Platelet Count 188 thou/uL (130-400); Red Blood Cell (RBC) Count 4.72 mill/uL (4.70-6.10); White Blood Cell (WBC) Count 11.2 thou/uL (4.8-10.8)
[2019-12-17 13:58] LABS: Anisocytosis SLIGHT = 6-15 cells (100X) (0-5/hpf); Hypochromia SLIGHT = 6-15 cells (100X) (0-5/hpf); MDiff Complete? YES; Platelet Morphology Comment Appears Adequate; Polychromasia SLIGHT = 2-3 cells (100X) (0-2/hpf)
[2019-12-17 14:03] LABS: ALT (SGPT) 26 U/L (8-55); AST (SGOT) 29 U/L (5-34); Albumin 3.8 g/dL (3.4-4.8); Alkaline Phosphatase 100 U/L (40-110); BUN (Urea Nitrogen) 84 mg/dL (8.4-25.7); Bilirubin, Total 3.7 mg/dL (0.2-1.2); CK (CPK) 103 U/L (30-200); Calc. Creatinine Clearance 0 mL/min (70-130); Calcium 9.1 mg/dL (7.8-10.44); Estimated GFR-MDRD 28; Globulin 2.9 g/dL (2.4-3.5); Glucose 123 mg/dL (83-110); Protein, Total 6.7 g/dL (5.8-8.1)
[2019-12-17 14:18] LABS: Anion Gap 21 mmol/L (10-20); Carbon Dioxide 41 mmol/L (23-31); Chloride 76 mmol/L (98-107); Potassium 2.8 mmol/L (3.5-5.1); Sodium 135 mmol/L (136-145)
[2019-12-17 14:26] LABS: CKMB 1.7 ng/mL (0-6.6)
--- NOTE | 2019-12-17 14:28 | RAD ---
EXAM: CHEST ONE VIEW HISTORY: Syncope COMPARISON: 12/13/2019 FINDINGS: Cardiac silhouette is magnified by projection but stable in size and does appear mildly enlarged. Pul monary vasculature is within normal limits. Pacing device overlies right upper chest. Elevation right hemidiaphragm is again seen with patchy parenchymal density at the right lung base probably att ributable to atelectasis. Parenchymal density was also seen at the right lung base on prior study on 10/13/2019. Findings could be related to chronic area of atelectasis. However, pneumonitis cannot b e entirely excluded. The left lung remains clear.. No other interval change. IMPRESSION: Persistent patchy density right lung base with elevation right hemidiaphragm. Findings may be related to chronic area of atelectasis. Pneumonitis could not be entirely excluded.
[2019-12-17] MEDS ORDERED: DOPamine 400 MG/D5W 250 ML 250 ML IVPB SCH (14:30)
[2019-12-17] MEDS ORDERED: Ondansetron PF 4 MG/2 ML Vial IVP PRN (14:30)
[2019-12-17] MEDS ORDERED: Ondansetron ODT 4 MG TAB SL PRN (14:30)
[2019-12-17] MEDS ORDERED: DOPamine 400 MG/D5W 250 ML 250 ML ONE (14:31)
[2019-12-17] MEDS ORDERED: Aspirin Chewable 81 MG TAB ONE (14:31)
[2019-12-17] MEDS ORDERED: Potassium Chloride 20 MEQ TAB ONE (14:31)
--- NOTE | 2019-12-17 14:34 | PDOC.FPRHP ---
- History of Present Illness Chief Complaint: Syncope History of Present Illness: 79 year old man with past medical history of HFrEF and CKD3 Presented to the emergency department complaining of a syncopal episode earlier today. Patient stated that last week he saw his training executive, Dr. Harrison, and had a stress test performed. He said that they were considering a cath procedure in the future and had brought up a pacemaker. Patient states that he has recently been having problems with slow heartbeat. Over the past few days has been feeling more weak and short of breath. He is on 2 liters of oxygen at home chronically. He utilizes his CPAP intermittently throughout the day as needed. today he was getting up from his chair with the assistance of two of his family members when he suddenly lost all strength and fell to the ground losing Consciousness. Fall was witnessed and accompanied and patient did not strike his head and quickly arouse. He was transferred via EMS who noted bradycardia and administered atropine.Patient denied any chest pain, worsening edema, or recent illness. He did note worsening orthopnea and shortness of breath recently. ED Course: 1L NS 324 ASA 40meq PO K-Dur 1mg atropine Dopamine drip @ 5 - Allergies/Adverse Reactions Allergies Allergy/AdvReac Type Severity Reaction Status Date / Time No Known Drug Allergies Allergy Verified 08/03/18 08:42 - Home Medications Medication Instructions Recorded Confirmed Type Aspirin Chewable [Aspirin Chewable 81 mg PO QAM 10/17/17 12/17/19 History Tablet] Tamsulosin HCl [Flomax] 0.4 mg PO QAM 12/29/17 12/17/19 History Amlodipine [Norvasc] 10 mg PO DAILY 08/21/19 12/17/19 History Celecoxib 200 mg PO DAILY 08/21/19 12/17/19 History Carvedilol [Coreg] 6.25 mg PO BID-WM tab 09/10/19 12/17/19 Rx Digoxin [Lanoxin] 0.25 mg PO DAILY tab 09/10/19 12/17/19 Rx Ipratropium/Albuterol Sulfate 3 ml NEB TID-RT PRN neb 09/10/19 12/17/19 Rx [DuoNeb] - History PMHx: HTN, CHF, CKD Stage III, COPD PSHx: Right Knee replacement FHx: Non-contributory Social: Patient reports quitting smoking approximately 15 years ago, but had at least 50 pack year history. Patient denies alcohol use in the last 2 years. Patient denies illicit drug use. He lives at home with his . - Review of Systems General: denies: fever/chills, weight/appetite/sleep changes Eyes: denies: vision changes, other ENT: denies: nasal congestion, rhinorrhea Respiratory: reports: shortness of breath. denies: cough, congestion Cardiovascular: reports: orthopnea. denies: chest pain, palpitation, edema Gastrointestinal: denies: nausea, vomiting, diarrhea Genitourinary: denies: dysuria, polyuria Skin: denies: rashes, lesions Musculoskeletal: denies: pain, tenderness Neurological: reports: syncope, weakness Psychological: denies: depression, other - Vital signs BP: 120/58, MAP: 78, Pulse: 41, Resp: 20, Temp: 98.7 (Oral), Pain: 0, O2 sat: 96 on (2L Oxygen), Wt: 129kg - Physical Exam Constitutional: awake, alert and oriented -Constitutional: Mild-Mod distress, morbidly obese HEENT: EOMI, conjunctiva clear, grossly normal vision, grossly normal hearing, MMM Neck: supple, FROM -Heart: Bradycardic, no murmurs auscultated -Lungs: Crackles throughout posteriorly, anteriorly scant wheezes Abdomen: soft, non-tender, bowel sounds present Musculoskeletal: normal structure, normal tone, ROM grossly normal Neurological: no focal deficit, CN II-XII intact Skin: no rash/lesions, capillary refill <2 seconds Heme/Lymphatic: no unusual bruising or bleeding Psychiatric: normal mood and affect, intact recent and remote memory FMR H&P: Results - Labs Result Diagrams: 12/17/19 13:21 12/17/19 13:21 Lab results: WBC 11.2 thou/uL (4.8-10.8) H 12/17/19 13:21 Hgb 11.7 g/dL (14.0-18.0) L 12/17/19 13:21 Hct 39.7 % (42.0-52.0) L 12/17/19 13:21 MCV 84.2 fL (78.0-98.0) 12/17/19 13:21 Plt Count 188 thou/uL (130-400) 12/17/19 13:21 Neutrophils % 78.5 % (42.0-75.0) H 12/17/19 13:21 Sodium 135 mmol/L (136-145) L 12/17/19 13:21 Potassium 2.8 mmol/L (3.5-5.1) L* 12/17/19 13:21 Chloride 76 mmol/L (98-107) L 12/17/19 13:21 Carbon Dioxide 41 mmol/L (23-31) H* 12/17/19 13:21 BUN 84 mg/dL (8.4-25.7) H 12/17/19 13:21 Creatinine 2.23 mg/dL (0.7-1.3) H 12/17/19 13:21 Glucose 123 mg/dL (83-110) H 12/17/19 13:21 Calcium 9.1 mg/dL (7.8-10.44) 12/17/19 13:21 Total Bilirubin 3.7 mg/dL (0.2-1.2) H 12/17/19 13:21 AST 29 U/L (5-34) 12/17/19 13:21 ALT 26 U/L (8-55) 12/17/19 13:21 Alkaline Phosphatase 100 U/L (40-110) 12/17/19 13:21 Creatine Kinase 103 U/L (30-200) 12/17/19 13:21 CK-MB (CK-2) 1.7 ng/mL (0-6.6) 12/17/19 13:21 Serum Total Protein 6.7 g/dL (5.8-8.1) 12/17/19 13:21 Albumin 3.8 g/dL (3.4-4.8) 12/17/19 13:21 - EKG Interpretation EK Lead EKG: Atrial fib, rate of 47, RBBB, QTc 449, non specific ST and T wave changes - Radiology Interpretation Chest x-ray Status: report reviewed by me (Persistent patchy density right lung base with elevation right hemidiaphragm. Findings may be related to chronic area of atelectasis. Pneumonitis could not be entirely excluded.) FMR H&P: A/P - Problem List (1) Hypokalemia due to excessive renal loss of potassium Current Visit: No Status: Acute Code(s): E87.6 - HYPOKALEMIA (2) Digoxin causing adverse effect in therapeutic use Current Visit: No Status: Acute Code(s): T46.0X5A - ADVERSE EFFECT OF CARDI- STIM GLYCOS/DRUG SIMLAR ACT, INIT (3) Atrial fibrillation Current Visit: No Status: Acute Code(s): I48.91 - UNSPECIFIED ATRIAL FIBRILLATION Qualifiers: Atrial fibrillation type: unspecified Qualified Code(s): I48.91 - Unspecified atrial fibrillation (4) Former heavy tobacco smoker Current Visit: No Status: Acute Code(s): Z87.891 - PERSONAL HISTORY OF NICOTINE DEPENDENCE (5) Morbid obesity Current Visit: No Status: Acute Code(s): E66.01 - MORBID (SEVERE) OBESITY DUE TO EXCESS CALORIES (6) Normocytic anemia Current Visit: No Status: Acute Code(s): D64.9 - ANEMIA, UNSPECIFIED (7) CKD (chronic kidney disease) Current Visit: No Status: Chronic Code(s): N18.9 - CHRONIC KIDNEY DISEASE, UNSPECIFIED Qualifiers: (8) Hypertension Current Visit: No Status: Chronic Code(s): I10 - ESSENTIAL (PRIMARY) HYPERTENSION Qualifiers: (9) MAY (obstructive sleep apnea) Current Visit: No Status: Suspected Code(s): G47.33 - OBSTRUCTIVE SLEEP APNEA (ADULT) (PEDIATRIC) (10) KOREY (acute kidney injury) Current Visit: No Status: Resolved Code(s): N17.9 - ACUTE KIDNEY FAILURE, UNSPECIFIED - Plan Symptomatic Bradycardia - In setting of metolazone use patient may have developed KOREY and hypokalemia worsening digoxin level and effects - Cardiology, Dr. Duffy, consulted - appreciate recs - Per patient had stress last week and was discussing possible cath and pacemaker in the future - Received 1mg atropine in route and 1mg in the ED followed by dopamine drip - Continue dopamine drip at 5 and titrate - Admit ICU for drip management KOREY on CKD 3 - Baseline Cr 1.1, currently 2.23 - Bun/Cr ratio: 37 - Likely pre-renal/poor perfusion 2/2 bradycardia - Will monitor and trend BMP - Received 1L NS in ED - No additional IVF currently due to IV rx with accompanying fluids Hypokalemia - 2.8 in the ED - Likely 2/2 metolazone rx - Received 40meq PO - Order additional 40 meq IV now and 40 meq PO tonight - Trend with BMP - Important to normalize to blunt digoxin effects Elevated Troponin - Likely 2/2 to low perfusion state - 0.121 - Trend x3 Hx HFrEF - Echo 2.5.2019: EF 40-45% with diastolic dysfunction - Due to acute change with repeat echo - Has lungs sounds consistent with fluid overload but no extremity edema - In the setting of limited clinical signs of fluid overload and pre-renal azotemia will hold all diuretics currently HTN - Borderline blood pressures in the ED - Will hold BP meds currently, special considerations to hold coreg due to bradycardia COPD - PRN duonebs Code status: Full VTE: SCD - hold lovenox for possible cath/pacemaker procedure Diet: HH decr sodium Dispo: Admit to ICU for dopamine drip titrated to appropriate rate. PCP: Dr. Samson FMR H&P: Upper Level - Plan Date/Time: 12/17/19 1274 I, Demarco Esquivel MD, have evaluated this patient and agree with findings/ plan as outlined by photography intern resident. Pertinent changes/additions are listed here. Symptomatic bradycardia - Discontinue rate control meds - Digoxin slightly toxic, hold for now. No indication for digibind - Currently on dopamine drip - Cardiology consulted with likely pacemaker placement if persistent Hypokalemia - 2.8 on admission - Replete - Recheck - Likely contributing KOREY on CKD - IVF - Hold diuretics - Recheck All other chronic conditions reviewed and medications to be restarted as appropriate PCP: Dr. Samson CODE STATUS: FULL CODE Disposition: Guarded, will admit to CCU for continued evaluation and management.
[2019-12-17] MEDS ORDERED: Potassium Chloride 40 MEQ in Sodium Chloride 0.9% 250 ML 250 ML IVPB SCH (16:00)
[2019-12-17] MEDS: Sodium Chloride 0.9% 1,000 ML IV SCH (16:17)
--- NOTE | 2019-12-17 16:22 | PDOC.EVN ---
Addendum - Attending - Attending Attestation Date/Time: 12/17/19 1600 I personally evaluated the patient and discussed the management with Dr. Tomlin/ Sierra. I agree with the History, Examination, Assessment and Plan documented in the electronic H/P with any addition or exceptions noted below. Patient with multiple cardiac issues here with symptomatic bradycardia, feelings of pre-syncope, and weakness. He has been found to have HR in 40s on time of arrival to ED. He is on Digoxin and Coreg for chronic HR control. He also is on Metolazone for diuretic affect. He has been found to have profound hypokalemia, KOREY. Suspect that patient's presentation is due to the effect of digoxin in combination with Coreg in the setting of hypokalemia and KOREY. He will be volume resuscitated somewhat, replete Potassium. Currently on Dopamine and will continue pending Cardiology recs. Patient was seen and evaluated in outpatient setting for possible pacemaker, which may be needed if his heart rate does not improve or if he does not tolerate being off his chronic rate control. We will also be holding his diuretics for now as well as his NSAIDs given his renal issues.
[2019-12-17 17:40] VITALS: BMI 38.8
[2019-12-17 17:54] LABS: CKMB 2.1 ng/mL (0-6.6)
[2019-12-17] MEDS ORDERED: Potassium Chloride 20 MEQ TAB PO SCH ×2 (19:00→23:00)
[2019-12-17 20:44] LABS: BUN (Urea Nitrogen) 80 mg/dL (8.4-25.7); Calc. Creatinine Clearance 50 mL/min (70-130); Calcium 9.4 mg/dL (7.8-10.44); Estimated GFR-MDRD 29; Glucose 157 mg/dL (83-110)
[2019-12-17 20:45] LABS: Anion Gap 19 mmol/L (10-20); Carbon Dioxide 40 mmol/L (23-31); Chloride 78 mmol/L (98-107); Sodium 134 mmol/L (136-145)
[2019-12-17 21:10] LABS: CKMB 2.4 ng/mL (0-6.6)
--- NOTE | 2019-12-18 00:31 | CON ---
DATE OF CONSULTATION: CHIEF COMPLAINT: Bradycardia. HISTORY OF PRESENT ILLNESS: Mr. Rodgers is an 79-year-old gentleman, who has a history of chronic kidney disease and atrial fibrillation, for which he is on rate-controlling agents with Coreg and Lanoxin. He has a diagnosis of bladder cancer and has recently been undergoing evaluation in preparation for surgery. He was seen by Dr. Sandoval and his use of home CPAP and home oxygen was emphasized. The patient reports that he recently had a stress test and there was discussion of possible cardiac catheterization as well as possible pacemaker. The patient is not sure if it was truly need or just discussed randomly. This morning, the patient awakened about 2:00 a.m. and was going to the bathroom when he became startled and fell. He was ultimately assisted to the chair by family. Later in the morning, he was going to the bathroom when he again became very weak and went to his knees. His family was with him and he did not have traumatic fall, they report that he lost consciousness. The patient was subsequently brought to the emergency room, where he was found to have profound bradycardia. His Lanoxin level was found to be mildly elevated at 2.9. He has received atropine and is on dobutamine. He is admitted to the hospital for evaluation and determination of whether he will need a permanent pacemaker placement versus medication adjustment. The patient reports he is using his CPAP at home. He denies known history of emphysema, although he has a long smoking history. SOCIAL HISTORY: The patient is an 79-year-old gentleman, who lives at home with his . ALLERGIES: HE DENIES ANY MEDICATION ALLERGIES. MEDICATIONS: His home medicines include: 1. Aspirin 81 mg daily. 2. Amlodipine 10 mg daily. 3. Flomax 0.4 daily. 4. DuoNeb p.r.n. 5. Lanoxin 0.25 daily. 6. Celebrex 200 mg daily. 7. Coreg 6.25 b.i.d. PAST MEDICAL HISTORY: The patient's past history remarkable for bladder cancer. He has a history of obstructive sleep apnea. He has a smoking history, but he denies a diagnosis of COPD. He has a known atrial fibrillation on rate-controlling agents. I do not see anticoagulant on his current regimen. REVIEW OF SYSTEMS: Remarkable as above. PHYSICAL EXAMINATION: VITAL SIGNS: Current blood pressure 120/58, heart rate of 54. He is afebrile. Oxygen saturation is 96% on 2 L of oxygen. GENERAL: He is alert, oriented, and not in acute distress. He is obese with weight of 129 kg. HEENT: Shows no adenopathies. NECK: Enlarged. He has no cranial nerve abnormalities. LUNGS: Show posterior rhonchi. I do not hear any wheezing. HEART: Bradycardic with atrial fibrillation. ABDOMEN: Soft and obese without guarding. Bowel sounds are normal. EXTREMITIES: Without cyanosis, clubbing, or edema. LABORATORY DATA: Electrolytes include sodium 135, potassium 2.8, chloride 96, CO2 of 41, BUN of 84, creatinine 2.3, glucose is 126. White count 11,200, hemoglobin is 11.7. His Lanoxin level is 2.4. IMPRESSION: 1. Bradycardia probably secondary to combination of mild Lanoxin toxicity and hypokalemia. 2. Intravascular volume depletion with hypokalemia, hyponatremia, and worsened prerenal azotemia. 3. Atrial fibrillation, chronic. 4. Past tobacco abuse. 5. History of obstructive sleep apnea, on CPAP therapy. PLAN: The patient is admitted to the ICU and is receiving fluid resuscitation, potassium replacement, and low-dose dobutamine for rate stimulation. Lanoxin has been held. There is no evidence that he needs to be on Digibind. He is receiving additional fluid resuscitation. CPAP from home would be appropriate if his family can bring it in. Pulmonary Service will continue to follow. Job ID: [id number] [facility]
[2019-12-18] MEDS: DOPamine 400 MG/D5W 250 ML 250 ML IVPB SCH ×3 (00:57→22:10)
--- NOTE | 2019-12-18 01:20 | CON ---
DATE OF CONSULTATION: ADMITTING DOCTOR: Dr. Cervantes. HISTORY OF PRESENT ILLNESS: The patient is an 79-year-old gentleman who presented after having several falls. The patient has a previous history of congestive heart failure. He was in the hospital in September of 2017 with congestive heart failure. He also has underlying COPD. The patient was readmitted in September of this year with congestive heart failure and worsening renal insufficiency. The patient was in usual state of health when he had several falls. The patient states he did not lose consciousness. The patient did not have any chest discomfort. The patient states that he has been compliant with his medications. The patient was noted to be markedly bradycardic and was admitted for further evaluation. PAST MEDICAL HISTORY: 1. Congestive heart failure. 2. Atrial fibrillation. 3. Peripheral vascular disease. 4. BPH. 5. Chronic renal insufficiency. 6. COPD. 7. Sleep apnea. 8. History of GI hemorrhage. PAST SURGICAL HISTORY: Surgery for bladder carcinoma and knee surgery. SOCIAL HISTORY: ALLERGIES: NO KNOWN DRUG ALLERGIES. MEDICATIONS: Included: 1. Flomax 0.4 daily. 2. Iron sulfate 325 q.a.m. 3. Digoxin 0.25 q.a.m. 4. Celebrex 200 daily. 5. Coreg 6.25 b.i.d. 6. Aspirin 81 daily. 7. Amlodipine 10 daily. PHYSICAL EXAMINATION: GENERAL: This is an ill-appearing gentleman. VITAL SIGNS: Blood pressure was 127/51, heart rate is 60, on dopamine. NECK: Showed no jugular venous distention. LUNGS: Clear to auscultation. HEART: Regular rate and rhythm. Normal S1, S2. No murmurs. ABDOMEN: Distended. EXTREMITIES: Showed no edema. VASCULAR: Radial pulses are 2+. LABORATORY DATA: Sodium was 135, potassium 2.8, chloride 76, bicarbonate 41, BUN 84, creatinine 2.2, glucose is 123. White blood cell count is 11.2, hemoglobin 11.7, hematocrit 39.7, and platelets are 188. Troponin was 0.12. Dig level was 2.9. EKG junctional rhythm with a slow ventricular response. IMPRESSION: 1. Symptomatic bradycardia, symptomatic junctional escape rhythm. 2. Digoxin toxicity. 3. History of cardiomyopathy. 4. History of atrial fibrillation. 5. Peripheral vascular disease. 6. Chronic renal insufficiency. 7. History of gastrointestinal hemorrhage. 8. Benign prostatic hyperplasia. 9. Chronic obstructive pulmonary disease. 10. Sleep apnea. PLAN: This gentleman had several falls and presented with marked bradycardia and hypotension. The patient was found to have dig toxicity and is in a junctional rhythm. The patient was placed on dopamine as I requested in the emergency room. the patient's digoxin will be discontinued and Coreg. The patient will be hydrated since he is developing worsening renal insufficiency. We will follow this patient with you through his hospitalization. Critical care note time, 30 minutes. Job ID: [id number] [facility]
[2019-12-18] MEDS: Sodium Chloride 0.9% 1,000 ML IV SCH ×3 (02:21→22:10)
[2019-12-18 04:27] LABS: #Eosinphils 0.1 thou/uL (0.0-0.7); #Lymphocytes 1.5 thou/uL (1.20-3.40); #Monocytes 1.3 thou/uL (0.11-0.59); #Neutrophils 12.2 thou/uL (1.40-6.50); %Basophils 0.1 % (0.0-1.0); %Eosinophils 0.5 % (0.0-10.0); %Lymphocytes 9.8 % (21.0-51.0); %Monocytes 8.8 % (0.0-10.0); %Neutrophils 80.8 % (42.0-75.0); Mean Corpuscular HGB CONC 29.7 g/dL (32.0-36.0); Mean Corpuscular Hemoglobin 24.6 pg (27.0-31.0); Mean Corpuscular Volume 82.8 fL (78.0-98.0); Mean Platelet Volume 8.4 fL (7.4-10.4); Platelet Count 196 thou/uL (130-400); RBC Distribution Width 18.7 % (11.5-14.5); Red Blood Cell (RBC) Count 4.86 mill/uL (4.70-6.10); White Blood Cell (WBC) Count 15.1 thou/uL (4.8-10.8)
[2019-12-18 04:31] LABS: BUN (Urea Nitrogen) 81 mg/dL (8.4-25.7); Calc. Creatinine Clearance 57 mL/min (70-130); Calcium 8.5 mg/dL (7.8-10.44); Estimated GFR-MDRD 34; Glucose 144 mg/dL (83-110)
[2019-12-18 04:41] LABS: Anion Gap 17 mmol/L (10-20); Carbon Dioxide 38 mmol/L (23-31); Chloride 82 mmol/L (98-107); Potassium 3.2 mmol/L (3.5-5.1); Sodium 134 mmol/L (136-145)
--- NOTE | 2019-12-18 06:25 | PDOC.FM ---
- Subjective Subjective: Patient reports he is still feeling weak. No chest pain. Would like something to have a bowel movement - Objective Vital Signs & Weight: Vital Signs (12 hours) Temp Pulse Ox 12/18/19 04:00 98.9 F 12/18/19 00:00 97.6 F 12/17/19 21:00 97.8 F 12/17/19 20:00 98 Weight Weight 129.9 kg Most Recent Monitor Data Heart Rate from ECG 54 NIBP 115/59 NIBP BP-Mean 77 Respiration from ECG 26 SpO2 91 I&O: 12/16/19 12/17/19 12/18/19 06:59 06:59 06:59 Intake Total 1087 Output Total 1055 Balance 32 Result Diagrams: 12/18/19 03:28 12/18/19 03:28 Phys Exam - Physical Examination Constitutional: NAD HEENT: PERRLA, sclera anicteric no respiratory distress Cardiovascular: no significant murmur bradycardic Musculoskeletal: no edema Neurological: non-focal, moves all 4 limbs Dx/Plan (1) Symptomatic bradycardia Code(s): R00.1 - BRADYCARDIA, UNSPECIFIED Status: Acute (2) Hypokalemia Code(s): E87.6 - HYPOKALEMIA Status: Acute (3) Chronic respiratory failure Code(s): J96.10 - CHRONIC RESPIRATORY FAILURE, UNSP W HYPOXIA OR HYPERCAPNIA Status: Acute (4) Acute kidney injury superimposed on CKD Code(s): N17.9 - ACUTE KIDNEY FAILURE, UNSPECIFIED; N18.9 - CHRONIC KIDNEY DISEASE, UNSPECIFIED Status: Acute - Plan Plan: 79 yo M with chronic afib here for symptomatic bradycardia, korey on ckd, digoxin toxiciy #Symptomatic Bradycardia -Likely 2/2 digoxin toxicity and hypokalemia. Metolazone use could have caused impaired renal clearance -Stable, on dopamine gtt 5, pulse 40-60s, off of BB and digoxin -Pending repeat echo -Cardiology following, recs appreciated-possible PM/AICD placement -Pulm following, recs appreciated #KOREY on CKD 3 - Cr downtrendin.23> 2.18 > 1.91 - Likely prerenal from heart failure, volume depletion and bradycardia. Since Cr improving and d/t fragile volume status with heart failure, no mIVF, PO hydration and trend #Hypokalemia - Improving : 2.8 > 3.2 , likely 2/2 home metolazone effects - Check Mg, will replace PO # HFrEF - Echo 2.5.2019: EF 40-45% with diastolic dysfunction-> pending repeat echo - In the setting of limited clinical signs of fluid overload and pre-renal azotemia will hold all diuretics currently - Euvolemic, monitor I/O #Hypermangesemia -3.0 > 2.9 -Usually bradycardia doesn't occur until at 4-5mEq, will monitor, repeat BMP this afternoon #Metabolic alkalosis -HCO3 38 (chronic), likely 2/2 combination of metolazone use, volume depletion and hypokalemia -Also with chronic respiratory acidosis, could be metabolic compensation component #Indeterminate troponin - Likely 2/2 to low perfusion state - 0.121 >0.118, stable. No chest pain. #HTN - Borderline blood pressures in the ED, on dopamine gtt @5mcg/min - BPs low normal currently. Hold antihypertensives & flomax #Chronic respiratory failure 2/2 COPD - PRN duonebs # Hx of GI hemorrhage -Hold anticoagulation 12/17 summary: Patient still w/ bradycardia likely a result of worsening HF vs. residual effects of dig toxicity & metolazone which have both been held. He is stable and hasn't required any further atropine. Pending a repeat TTE to assess HF function. We will continue holding on diuretics due to electrolyte abnormalities with close monitoring of his I/O and fluid status. Currently requiring slightly more oxygen 2L in which his home requirement is 1.5L. We will monitor. Replace potassium. Appreciate cardiology Code status: Full VTE: SCD - hold lovenox for possible cath/pacemaker procedure Diet: HH decr sodium PCP: Dr. Samson Addendum - Attending - Attending Attestation Date/Time: 12/18/19 6091 I personally evaluated the patient and discussed the management with Dr. Martinez I agree with the History, Examination, Assessment and Plan documented above with any addition or exceptions noted below. 79 yo M with chronic afib here for symptomatic bradycardia, korey on ckd, digoxin toxicity. Patient with persistent bradycardia. Has not required atropine since ED. TTE pending. On 1.5 L o2 at home. Replete K. Volume repletion. Await Cardiology recs on AICD/Pacemaker. Cont flomax for retention, Urology recs appreciated. RA Du
[2019-12-18] MEDS ORDERED: Potassium Chloride 20 MEQ TAB PO SCH (06:30)
[2019-12-18] MEDS: Tamsulosin HCl 0.4 MG CAP PO SCH (08:05)
[2019-12-18] MEDS: Aspirin Chewable 81 MG TAB PO SCH (08:05)
--- NOTE | 2019-12-18 08:47 | PRG ---
DATE OF SERVICE: 12/18/2019 SUBJECTIVE: This morning, he remains in the ICU, awake, responsive on dopamine for his bradycardia. Cardiology has been seeing him. Pulmonary burroughs, he denies any difficulty breathing. He is constipated. OBJECTIVE: VITAL SIGNS: Blood pressure , saturations 93%. CHEST: Decreased breath sounds. No wheezing. CARDIAC: Normal S1 and S2. No gallops. ABDOMEN: No masses. LABORATORY DATA: Creatinine is 1.9, BUN is 81. White count 15,000. Dig level is elevated. ASSESSMENT AND PLAN: 1. Bradycardia, on dopamine. 2. Chronic obstructive pulmonary disease. 3. Sleep apnea. Nocturnal CPAP, neb treatments, supportive care. We will notify Dr. Sandoval who will see him tomorrow. Otherwise, input from Cardiology. Job ID: [id number]
--- NOTE | 2019-12-18 12:01 | PDOC.CPN ---
- Subjective Date: 12/18/19 Time: 08:30 Interval history: The pt seen and examined. No overnight events. No cardiac complaints. - Objective Allergies/Adverse Reactions: Allergies Allergy/AdvReac Type Severity Reaction Status Date / Time No Known Drug Allergies Allergy Verified 08/03/18 08:42 Visit Medications: Current Medications Albuterol/Ipratropium (Duoneb) 3 ml NEB TID-RT PRN PRN Reason: Wheezing Aspirin (Aspirin Chewable) 81 mg PO QAM [facility] Last Admin: 12/18/19 08:05 Dose: 81 mg Docusate Sodium (Colace) 100 mg PO BID [facility] Dopamine HCl/Dextrose (Dopamine 400 Mg/D5w 250 Ml) 250 mls @ 0 mls/hr IVPB INF [facility]; Protocol Last Admin: 12/18/19 00:57 Dose: 250 mls Sodium Chloride (Normal Saline 0.9%) 1,000 mls @ 100 mls/hr IV .Q10H [facility] Last Admin: 12/18/19 02:21 Dose: 1,000 mls Polyethylene Glycol (Miralax) 17 gm PO DAILY [facility] Sodium Chloride (Flush - Normal Saline) 10 ml IVF PRN PRN PRN Reason: Saline Flush Tamsulosin HCl (Flomax) [facility] [place] Last Admin: 12/18/19 08:05 Dose: 0.4 mg Vital Signs & Weight: Vital Signs Temp Pulse Ox 12/18/19 10:08 99 12/18/19 08:00 96 12/18/19 07:00 98.6 F 12/18/19 04:00 98.9 F Weight 283 lb 8.231 oz - Physical Exam General: alert & oriented x3 HEENT: mucus membranes moist Neck: supple neck Cardiac: irregularly regular Lungs: decreased breath sounds - Labs Result Diagrams: 12/18/19 03:28 12/18/19 03:28 Troponin/CKMB CK-MB (CK-2) 2.4 ng/mL (0-6.6) 12/17/19 20:03 Troponin I 0.118 ng/mL (< 0.028) H 12/17/19 20:03 - Telemetry Supraventricular conduction: atrial fibrillation - Assessment/Plan Assessment/Plan: 1. Digoxin toxicity 2. Symptomatic Bradycardia - HR has been 40-50s with Dopamine drip 3. Jacquie on CKD stage 3 - 2/2 volume depletion; on NS @ 100ml/h 4. Chronic Afib - stable 5. Chronic combined HF - on NS @ 100ml/h; caution about fluid overload; waiting for repeat Echo result 6. HTN - stable 7. COPD with Home O2 8. Sleep apnea with Cpap at HS 9. Anemia 10. Obese MAR reviewed
[2019-12-18] MEDS: Docusate 100 MG CAP PO SCH ×2 (14:09→20:41)
[2019-12-18] MEDS: Polyethylene Glycol 3350 17 GM Packet PO SCH (14:09)
[2019-12-18 15:20] LABS: BUN (Urea Nitrogen) 76 mg/dL (8.4-25.7); Calc. Creatinine Clearance 61 mL/min (70-130); Calcium 8.4 mg/dL (7.8-10.44); Estimated GFR-MDRD 38; Glucose 135 mg/dL (83-110)
[2019-12-18 15:28] LABS: Anion Gap 19 mmol/L (10-20); Carbon Dioxide 35 mmol/L (23-31); Chloride 84 mmol/L (98-107); Potassium 3.6 mmol/L (3.5-5.1); Sodium 134 mmol/L (136-145)
--- NOTE | 2019-12-18 19:21 | CON ---
DATE OF CONSULTATION: REASON FOR CONSULT: The patient recently sent to Cardiology for clearance for TURBT scheduled for January 02, currently admitted for syncope. HISTORY OF PRESENT ILLNESS: Mr. Rodgers is an 79-year-old male, whom I had initially seen as an inpatient consultation back in September 2017, as he was admitted for severe anemia due to GI bleed, respiratory failure, and CHF exacerbation. He was found to have a false passage and required cystoscopic guidance to place a Noel catheter. Subsequently, he was diagnosed with bladder cancer. I have been monitoring his bladder cancer with local cystoscopy, recently he had exacerbation of urinary retention requiring indwelling Noel catheter. Cystoscopy performed after catheter removed demonstrating bullous edema. Although, there was no obvious bladder tumor, cytology is positive, therefore he is scheduled for random bladder biopsy, possible TURBT January 02. I recently sent him to his panel assembler, Dr. Chavira, who was cleared for general anesthesia, as well as Dr. Harrison, his veterinary manager as he has severe CHF and COPD with episodes of fluid exacerbation requiring aggressive diuresis. Chart reviewed, he is admitted for bradycardia, was seen by Dr. Duffy, has not yet seen Dr. Harrison. He was seen by Cardiology last week and was undergoing a PET scan, which I do not have the results to thus far. He appears to be resting comfortably, transitioning out of ICU to telemetry. Noel catheter has been placed by nursing staff without significant issues. It is not a postvoid residual, as he was not asked to void. Per nurse, he placed a 16-Martiniquais Noel catheter without significant issues and obtained 450 mL of clear yellow urine. PAST MEDICAL HISTORY: Includes; 1. Severe COPD followed by Dr. Sandoval, atrial fibrillation, Dr. Harrison, off anticoagulation due to history of GI bleed, chronic diastolic dysfunction, hypertension, chronic kidney disease, obstructive sleep apnea, morbid obesity, history of low-grade bladder cancer, status post TURBT. 2. History of urethral stricture, traumatic Noel catheter placement requiring cystoscopic guidance to place a catheter on initial consult. PAST SURGICAL HISTORY: Includes; 1. Right total knee replacement. 2. Cystoscopy, a 16-Martiniquais [place] tip Noel catheter over guidewire in September 2017. 3. Cystoscopy, DVIU, and TURBT in December 2017. He has had multiple local cystoscopies in my office subsequently. His last cystoscopy was performed November 22 with positive cytology. SOCIAL HISTORY: Positive for former tobacco abuse, quit in 2008. ALLERGIES: NO KNOWN DRUG ALLERGIES. REVIEW OF SYSTEMS: Ten-point review of systems as above otherwise noncontributory. PHYSICAL EXAMINATION: VITAL SIGNS: His vital signs are stable. Temperature 99, heart rate variable from 48 to 62, and 98% on 2 L. I's and O's 2580 in and 1100 out, he is positive 1.4 L. GENERAL: The patient is in no acute distress. HEENT: Grossly unremarkable. HEART: Regular rate. Bradycardic. LUNGS: Intermittent wheeze. ABDOMEN: Morbidly obese and protuberant. : Noel catheter draining clear yellow urine. GORGE not performed on today's visit. EXTREMITIES: He has chronic lower extremity edema, on today's exam, it is significantly improved than his previous chronic pitting edema. NEUROLOGIC: No gross focal deficits per se. MUSCULOSKELETAL: Decreased mobility of the lower extremities due to chronic edema. PSYCHIATRIC: Appears to be appropriate and intact. LABORATORY DATA: White count 15, hemoglobin 12, and platelet 196. Creatinine is 1.9, his baseline creatinine is variable from 1.[address] of the abdomen and pelvis in September 2017 demonstrates no evidence of hydronephrosis. Last stress test of record is September 2017 with no perfusion defect, EF is 53%. TURBT in December 2017 low-grade TCC, noninvasive. IMPRESSION AND PLAN: 1. An 79-year-old male with history of morbid obesity, severe chronic obstructive pulmonary disease, and atrial fibrillation, currently admitted due to bradycardia, his cardiac medication is being adjusted by Cardiology, he was diagnosed with digoxin toxicity and continues to be monitored in telemetry on dopamine drip. 2. History of prior urinary retention, tends to have worsening urinary retention with deconditioning and aggressive diuresis. Continue indwelling Noel catheter for now, in my office on last visit, his PVR was minimal at 54. Due to his cardiac comorbidities, may continue indwelling Noel catheter for now. Continue his BPH medications. Await Cardiology evaluation and assessment, as he was in transition of being optimized by Cardiology for general anesthesia for TURBT for bladder tumor. Job ID: [id number] MTDD
[2019-12-19 05:28] LABS: #Eosinphils 0.2 thou/uL (0.0-0.7); #Lymphocytes 1.5 thou/uL (1.20-3.40); #Monocytes 1.2 thou/uL (0.11-0.59); #Neutrophils 9.3 thou/uL (1.40-6.50); %Basophils 0.4 % (0.0-1.0); %Eosinophils 1.8 % (0.0-10.0); %Lymphocytes 12.2 % (21.0-51.0); %Monocytes 9.9 % (0.0-10.0); %Neutrophils 75.8 % (42.0-75.0); Hemoglobin 11.3 g/dL (14.0-18.0); Mean Corpuscular HGB CONC 29.1 g/dL (32.0-36.0); Mean Corpuscular Volume 85.8 fL (78.0-98.0); Mean Platelet Volume 8.4 fL (7.4-10.4); Platelet Count 168 thou/uL (130-400); RBC Distribution Width 18.8 % (11.5-14.5); Red Blood Cell (RBC) Count 4.53 mill/uL (4.70-6.10); White Blood Cell (WBC) Count 12.3 thou/uL (4.8-10.8)
[2019-12-19 05:32] LABS: Anion Gap 13 mmol/L (10-20); BUN (Urea Nitrogen) 61 mg/dL (8.4-25.7); Calc. Creatinine Clearance 75 mL/min (70-130); Calcium 8.1 mg/dL (7.8-10.44); Carbon Dioxide 35 mmol/L (23-31); Chloride 87 mmol/L (98-107); Estimated GFR-MDRD 47; Glucose 130 mg/dL (83-110); Potassium 3.2 mmol/L (3.5-5.1); Sodium 132 mmol/L (136-145)
--- NOTE | 2019-12-19 07:39 | PRG ---
DATE OF SERVICE: 12/19/2019 SUBJECTIVE: The patient without chest pain. OBJECTIVE: VITAL SIGNS: Stable. He is afebrile. GENERAL: He is positive 2 L. Urine output 1550. ABDOMEN: Soft. Morbidly obese. EXTREMITIES: Lower extremity edema, however, improved. LABORATORY DATA: White count 12, hemoglobin 11, creatinine 1.4. IMPRESSION AND PLAN: 1. Mr. Rodgers is an 79-year-old male, with history of severe congestive heart failure, chronic obstructive pulmonary disease, admitted for bradycardia. Cardiology following. Plan cardiac cath as he is scheduled for TURBT, January 02. 2. History of bladder cancer with positive cytology. 3. History of BPH with tendency for urinary retention with aggressive diuresis. May continue indwelling Noel catheter for now. Continue BPH medications. Job ID: [id number]
[2019-12-19] MEDS ORDERED: Potassium Chloride 20 MEQ TAB PO SCH ×2 (07:45→09:00)
[2019-12-19] MEDS: Polyethylene Glycol 3350 17 GM Packet PO SCH (08:35)
[2019-12-19] MEDS: Docusate 100 MG CAP PO SCH ×2 (08:35→20:32)
[2019-12-19] MEDS: Aspirin Chewable 81 MG TAB PO SCH (08:35)
[2019-12-19] MEDS: Tamsulosin HCl 0.4 MG CAP PO SCH (08:36)
[2019-12-19] MEDS ORDERED: Amlodipine 10 MG TAB PO SCH (09:00)
--- NOTE | 2019-12-19 09:08 | PDOC.CPN ---
- Subjective Date: 12/19/19 Time: 09:00 - Review of Systems General: denies: fever/chills, weight/appetite/sleep changes, night sweats, fatigue Respiratory: denies: cough, congestion, shortness of breath, exercise intolerance Cardiovascular: denies: chest pain, palpitation, edema, paroxysmal nocturnal dyspnea, orthopnea Gastrointestinal: denies: nausea, vomiting, diarrhea, constipation, abd pain, GI bleeding Musculoskeletal: reports: swelling (mild lower extremity edema.) Neurological: denies: numbness, syncope, seizure, weakness - Objective Allergies/Adverse Reactions: Allergies Allergy/AdvReac Type Severity Reaction Status Date / Time No Known Drug Allergies Allergy Verified 08/03/18 08:42 Visit Medications: Current Medications Albuterol/Ipratropium (Duoneb) 3 ml NEB TID-RT PRN PRN Reason: Wheezing Amlodipine Besylate (Norvasc) 10 mg PO DAILY [facility] Last Admin: 12/19/19 08:35 Dose: 10 mg Aspirin (A[facility]in Chewable) [facility] [place] Admin: 12/19/19 08:35 Dose: 81 mg Docusate Sodium (Colace) 100 mg PO BID [facility] Last Admin: 12/19/19 08:35 Dose: 100 mg Dopamine HCl/Dextrose (Dopamine 400 Mg/D5w 250 Ml) 250 mls @ 24.113 mls/hr IVPB INF [facility]; Protocol Last Admin: 12/18/19 22:10 Dose: 250 mls Sodium Chloride (Normal Saline 0.9%) 1,000 mls @ 100 mls/hr IV .Q10H [facility] Last Admin: 12/18/19 22:10 Dose: 1,000 mls Polyethylene Glycol (Miralax) 17 gm PO DAILY [facility] Last Admin: 12/19/19 08:35 Dose: 17 gm Potassium Chloride (K-Dur) 40 meq PO NOW [facility] Stop: 12/19/19 09:45 Last Admin: 12/19/19 08:36 Dose: 40 meq Sodium Chloride (Flush - Normal Saline) 10 ml IVF PRN PRN PRN Reason: Saline Flush Tamsulosin HCl (Flomax) 0.4 mg PO QAM [facility] Last Admin: 12/19/19 08:36 Dose: 0.4 mg Vital Signs & Weight: Vital Signs Temp Pulse Resp BP Pulse Ox 12/19/19 07:22 96.2 F L 42 L 18 137/62 95 12/19/19 04:16 93 L 12/19/19 03:16 97.9 F 50 L 20 145/65 H 93 L 12/19/19 00:00 47 L 131/60 Weight 287 lb 14.4 oz - Quality Measures Condition: Atrial Fibrillation/Flutter (hx or current) - Physical Exam HEENT: normocephaly Neck: no JVD/HJR Cardiac: irregularly regular Lungs: clear to auscultation Neuro: grossly intact Abdomen: active bowel sounds, soft Extremities: 1+ LE edema Musculoskeletal: normal range of motion - Labs Result Diagrams: 12/19/19 04:47 12/19/19 04:47 Troponin/CKMB CK-MB (CK-2) 2.4 ng/mL (0-6.6) 12/17/19 20:03 Troponin I 0.118 ng/mL (< 0.028) H 12/17/19 20:03 - Telemetry Supraventricular conduction: atrial fibrillation - Assessment/Plan Assessment/Plan: 1. Digoxin toxicity 2. Symptomatic Bradycardia - HR has been 40-50s with Dopamine drip 3. Jacquie on CKD stage 3 - 2/2 volume depletion; on NS @ 100ml/h Improving. 4. Chronic Afib - stable 5. Chronic combined HF - on NS @ 100ml/h; caution about fluid overload; waiting for repeat Echo result 6. HTN - stable 7. COPD with Home O2 8. Sleep apnea with Cpap at HS 9. Anemia 10. Obese 11. prostate hypertrophy. 12. Bladder cancer. 13. Abnormal stress test. Plan for cath prior to d/c. 14. LBBB , may need bi-V pacemaker. MAR reviewed
[2019-12-19 09:54] LABS: Magnesium 2.9 mg/dL (1.6-2.6); Phosphorus 2.5 mg/dL (2.3-4.7)
--- NOTE | 2019-12-19 10:10 | PDOC.FM ---
- Subjective Subjective: Patient still feels weak, not any better or worse. Upper arm swelling. Has been on fluids, taking orally. No dyspnea - Objective Vital Signs & Weight: Vital Signs (12 hours) Temp Pulse Resp BP Pulse Ox 12/19/19 07:22 96.2 F L 42 L 18 137/62 95 12/19/19 04:16 93 L 12/19/19 03:16 97.9 F 50 L 20 145/65 H 93 L 12/19/19 00:00 47 L 131/60 Weight Weight 130.589 kg Most Recent Monitor Data Heart Rate from ECG 49 NIBP 136/55 NIBP BP-Mean 82 Respiration from ECG 12 SpO2 98 I&O: 12/18/19 12/19/19 12/20/19 06:59 06:59 06:59 Intake Total 2581 3630 Output Total 1110 1555 Balance 1471 2075 Result Diagrams: 12/19/19 04:47 12/19/19 04:47 Phys Exam - Physical Examination Constitutional: NAD HEENT: moist MMs Neck: full ROM bibasilar crackles Cardiovascular: RRR Gastrointestinal: soft, non-tender 1+ edema in legs and in arms Neurological: non-focal, moves all 4 limbs Psychiatric: normal affect, A&O x 3 Skin: no rash Dx/Plan (1) Symptomatic bradycardia Code(s): R00.1 - BRADYCARDIA, UNSPECIFIED Status: Acute (2) Hypokalemia Code(s): E87.6 - HYPOKALEMIA Status: Acute (3) Chronic respiratory failure Code(s): J96.10 - CHRONIC RESPIRATORY FAILURE, UNSP W HYPOXIA OR HYPERCAPNIA Status: Acute (4) Acute kidney injury superimposed on CKD Code(s): N17.9 - ACUTE KIDNEY FAILURE, UNSPECIFIED; N18.9 - CHRONIC KIDNEY DISEASE, UNSPECIFIED Status: Acute - Plan Plan: 79 yo M with chronic afib here for symptomatic bradycardia, korey on ckd, digoxin toxiciy #Symptomatic Bradycardia, LBBB -Likely 2/2 digoxin toxicity and hypokalemia. Metolazone use could have caused impaired renal clearance -Stable, on dopamine gtt 5, pulse 40-60s, off of BB and digoxin -Repeat echo unchanged from one in 09/2019 -Cardiology following, recs appreciated-possible Bi-V PM/AICD placement -Pulm following, recs appreciated #KOREY on CKD 3 - Cr downtrendin.23> 2.18 > 1.91 - Likely prerenal from heart failure, volume depletion and bradycardia - PO hydration, #Mild fluid overload -Up 5L, diuertics have been held due to low nml BPs on admission -20 PO lasix now #Hypokalemia - Improving : 2.8 > 3.2 , likely 2/2 home metolazone effects - Check Mg, will replace PO #Hx of bladder CA and BPH -continue flomax per uro -Uro following, recs appreciated # HFrEF - Echo 2..2019: EF 40-45% with diastolic dysfunction, echo unchanged - Euvolemic, monitor I/O #Hypermangesemia -3.0 > 2.9 -Usually bradycardia doesn't occur until at 4-5mEq, will monitor, repeat BMP this afternoon #Metabolic alkalosis -HCO3 38 (chronic), likely 2/2 combination of metolazone use, volume depletion and hypokalemia -Also with chronic respiratory acidosis, could be metabolic compensation component #Indeterminate troponin - Likely 2/2 to low perfusion state - 0.121 >0.118, stable. No chest pain. #HTN - Borderline blood pressures in the ED, on dopamine gtt @5mcg/min - BPs low normal currently. Hold antihypertensives & flomax #Chronic respiratory failure 2/2 COPD - PRN duonebs # Hx of GI hemorrhage -Hold anticoagulation 12/18 summary: Patient still w/ bradycardia likely a result of LBBB or residual effects of dig toxicity & metolazone which have both been held. Repeat TTE unchanged from Sep 2019. He is stable and hasn't required any further atropine. Mildly fluid overloaded today with pulm edema on exam- will give 20mg PO lasix. Monitor I/O. May need more diuresing but will refrain from aggressive diuresing due to KOREY. Replace potassium, check Mg/Phos. Appreciate cardiology recs Code status: Full VTE: SCD - hold lovenox for possible cath/pacemaker procedure Diet: HH decr sodium PCP: Dr. Samson Addendum - Attending - Attending Attestation Date/Time: 12/19/19 1135 79 yo M with chronic afib here for symptomatic bradycardia, korey on ckd, digoxin toxicity. Persistent bradycardia overnight, still on dopamine. Scheduled for TURP with Urology on 01/02. May need pacemaker, appreciate Cardiology recommendations. [place] this AM to help with suspected fluid overload, monitor closely. RA Du
[2019-12-19] MEDS ORDERED: Furosemide 20 MG TAB PO SCH (10:15)
[2019-12-19] MEDS: DOPamine 400 MG/D5W 250 ML 250 ML IVPB SCH ×2 (10:58→22:00)
[2019-12-19] MEDS ORDERED: Furosemide 20 MG/2 ML VIAL SLOW IVP SCH (11:45)
--- NOTE | 2019-12-19 15:24 | CON ---
DATE OF CONSULTATION: 12/19/2019 HISTORY OF PRESENT ILLNESS: I am seeing Mr. Rodgers at our [facility] telemetry floor as an electrophysiology hospice care consultant. His problems are: 1. Symptomatic bradycardia with repeated near-syncopal falls. a. Elevated digoxin levels present currently. 2. 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 3. History of diastolic heart failure. a. 2D echo from 12/18/2019 reveals LVEF of 55% to 60%, normal RV size and function, mild TR only. 4. Morbid obesity. 5. History of bladder cancer. 6. History of persistent atrial fibrillation, not on anticoagulation, has history of GI bleed. 7. History of COPD. 8. Sleep apnea, on CPAP. 9. Prior history of smoking. ALLERGIES: NONE NOTED. MEDICATIONS: At home, include: 1. Aspirin. 2. Tamsulosin. 3. Amlodipine. 4. Celecoxib. 5. Carvedilol. 6. Digoxin. 7. Ipratropium. 8. Albuterol. SUBJECTIVE: Mr. Rodgers was admitted with near-syncopal spells. He has history of atrial fibrillation, it is chronic, on occasion has rapid heart rate. He was treated with Coreg and digoxin. He had worsening renal function and was noted to have marked elevated digoxin level at 2.9, and beta blockers and digoxin on hold. He continues to be bradycardic in the 40s to 50s. He does have history of diastolic heart failure. Currently, he has improving orthopnea. No chest pain. He is dizzy. Near-syncopal spells has not recurred in the hospital while mostly in bed. He denies stroke-like symptoms or bleeding issues. REVIEW OF SYSTEMS: Rest of review of systems otherwise unremarkable. PAST HISTORY: As above. SOCIAL HISTORY: The patient is a prior smoker, long history of smoking. No EtOH or drug abuse. FAMILY HISTORY: Not contributory. OBJECTIVE DATA: VITAL SIGNS: Blood pressure is 137/62, heart rate 42, respiratory rate is 18, and temperature 96.2 degrees Fahrenheit. GENERAL: This is an alert and oriented, obese man, in no apparent distress. NECK: Supple. Jugular veins are slightly distended. CHEST: Coarse. No crackles. HEART: Sounds are regular, but bradycardic. No murmur or gallop. ABDOMEN: Benign. Bowel sounds positive. EXTREMITIES: Lower extremities without edema, clubbing, or cyanosis. Pulses are adequate. NEUROLOGIC: The patient is nonfocal. MUSCULOSKELETAL: Without joint swelling or deformity. SKIN: Without rash. DATABASE: EKG is reviewed, revealing baseline junctional rhythm, cannot completely rule out intermittent P waves versus atrial fibrillation, right bundle left axis morphology. QRS are seen markedly widened QRS over 160 milliseconds. LABORATORY DATA: Digoxin level is 2.9. Sodium 132, potassium 3.2, BUN is 61, and creatinine 1.45. White cell count 12.3, hemoglobin 11.3, and platelet count is 168. The chest x-ray on this admission reveals patchy density in the right lung base with elevated right hemidiaphragm, partial atelectasis, pneumonitis is the differential. The troponin levels are peaking at 0.12. ASSESSMENT AND PLAN: 1. Mr. Rodgers is a pleasant 79-year-old man with history of diastolic congestive heart failure, renal insufficiency with history of bladder cancer, chronic atrial fibrillation with significant conduction disease noted in the past with trifascicular block, now presenting with marked bradycardia with a rhythm appears to be junctional escape rhythm. Although in the setting of digoxin and Coreg use, I am not expecting to have long-term improvement from his bradycardia. He will require repeated negative chronotropic agents and recurrence of braycardia is likely, hence he would benefit from chronic pacing. He will likely be 100% ventricularly paced, hence his diastolic heart failure could worsen his left ventricular synchrony and heart failure issues. Therefore, Bi-V pacing is a strong consideration. We discussed the pros and cons about biventricular stimulation in the concept of resynchronization. Risks and benefits of procedure were discussed including infection, bleeding, pneumothorax , tamponade, lead dislodgement and device recalls. He is willing to proceed. We will schedule him for a near date. 2. Atrial fibrillation history, likely we will monitor the device. 3. History of gastrointestinal bleed, off anticoagulant. Watchman device is a consideration. Job ID: [id number] [facility]
--- NOTE | 2019-12-19 16:12 | PDOC.CPN ---
- Subjective Interval history: The pt seen and examined. No overnight events. No cardiac complaints. - Objective Allergies/Adverse Reactions: Allergies Allergy/AdvReac Type Severity Reaction Status Date / Time No Known Drug Allergies Allergy Verified 08/03/18 08:42 Visit Medications: Current Medications Albuterol/Ipratropium (Duoneb) 3 ml NEB TID-RT PRN PRN Reason: Wheezing Amlodipine Besylate (Norvasc) 10 mg PO DAILY [facility] Last Admin: 12/19/19 08:35 Dose: 10 mg Aspirin (Aspirin Chewable) 81 mg PO QAM [facility] Last Admin: 12/19/19 08:35 Dose: 81 mg Docusate Sodium (Colace) 100 mg PO BID [facility] Last Admin: 12/19/19 08:35 Dose: 100 mg Dopamine HCl/Dextrose (Dopamine 400 Mg/D5w 250 Ml) 250 mls @ 24.113 mls/hr IVPB INF [facility]; Protocol Last Admin: 12/19/19 10:58 Dose: 250 mls Sodium Chloride (Normal Saline 0.9%) 1,000 mls @ 100 mls/hr IV .Q10H [facility] Last Admin: 12/18/19 22:10 Dose: 1,000 mls Polyethylene Glycol (Miralax) 17 gm PO DAILY [facility] Last Admin: 12/19/19 08:35 Dose: 17 gm Sodium Chloride (Flush - Normal Saline) 10 ml IVF PRN PRN PRN Reason: Saline Flush Tamsulosin HCl (Flomax) 0.4 mg PO QAM [facility] Last Admin: 12/19/19 08:36 Dose: 0.4 mg Vital Signs & Weight: Vital Signs Temp Pulse Pulse Pulse Resp BP BP 12/19/19 14:33 52 L 63 144/68 H 135/71 12/19/19 12:05 97.7 F 43 L 16 12/19/19 08:35 12/19/19 07:22 96.2 F L 42 L 18 12/19/19 04:16 BP Pulse Ox 12/19/19 14:33 12/19/19 12:05 146/66 H 93 L 12/19/19 08:35 95 12/19/19 07:22 137/62 95 12/19/19 04:16 93 L Weight 287 lb 14.4 oz - Quality Measures Condition: Atrial Fibrillation/Flutter (hx or current) - Labs Result Diagrams: 12/19/19 04:47 12/19/19 04:47 Troponin/CKMB CK-MB (CK-2) 2.4 ng/mL (0-6.6) 12/17/19 20:03 Troponin I 0.118 ng/mL (< 0.028) H 12/17/19 20:03
--- NOTE | 2019-12-19 16:49 | PRG ---
DATE OF SERVICE: 12/19/2019 Quintin Rodgers is doing well. He does not have a CPAP at the hospital. He was actually asleep when I walked into the room and was having apneic events. I order that we will have to get the hospital CPAP in the room for him until somebody from his family can bring his device. He has no new complaints. He is actually being evaluated for cardiac dysrhythmias at this time. Reviewing my notes, he was set up with a max pressure on inspiration 25 to 35 and 12 to 25 on expiration with a pressure support minimum of 4 and pressure support maximum of 10. We will set him up with BiPAP for now while he is in the hospital until his machine can be delivered to his room. Job ID: [id number]
[2019-12-20 04:47] LABS: #Eosinphils 0.1 thou/uL (0.0-0.7); #Lymphocytes 1.3 thou/uL (1.20-3.40); #Neutrophils 10.3 thou/uL (1.40-6.50); %Basophils 0.1 % (0.0-1.0); %Eosinophils 0.8 % (0.0-10.0); %Lymphocytes 9.8 % (21.0-51.0); %Monocytes 8.1 % (0.0-10.0); %Neutrophils 81.1 % (42.0-75.0); Hemoglobin 11.6 g/dL (14.0-18.0); Mean Corpuscular HGB CONC 29.5 g/dL (32.0-36.0); Mean Corpuscular Hemoglobin 25.1 pg (27.0-31.0); Mean Platelet Volume 8.8 fL (7.4-10.4); Platelet Count 176 thou/uL (130-400); RBC Distribution Width 18.5 % (11.5-14.5); Red Blood Cell (RBC) Count 4.62 mill/uL (4.70-6.10); White Blood Cell (WBC) Count 12.7 thou/uL (4.8-10.8)
[2019-12-20 05:07] LABS: Anion Gap 15 mmol/L (10-20); BUN (Urea Nitrogen) 43 mg/dL (8.4-25.7); Calc. Creatinine Clearance 87 mL/min (70-130); Calcium 8.5 mg/dL (7.8-10.44); Carbon Dioxide 35 mmol/L (23-31); Chloride 88 mmol/L (98-107); Estimated GFR-MDRD 56; Glucose 118 mg/dL (83-110); Potassium 3.4 mmol/L (3.5-5.1); Sodium 135 mmol/L (136-145)
--- NOTE | 2019-12-20 06:31 | PDOC.FM ---
- Subjective Subjective: Patient was resting comfortably in his bed at the time of evaluation, and denied any acute overnight events. - Objective Vital Signs & Weight: Vital Signs (12 hours) Temp Pulse Resp BP Pulse Ox 12/20/19 02:59 97.7 F 71 20 134/64 92 L 12/20/19 00:00 48 L 149/68 H 12/19/19 19:02 98 12/19/19 19:01 97.2 F L 18 141/67 H 98 Weight Weight 130.68 kg Most Recent Monitor Data Heart Rate from ECG 49 NIBP 136/55 NIBP BP-Mean 82 Respiration from ECG 12 SpO2 98 I&O: 12/18/19 12/19/19 12/20/19 06:59 06:59 06:59 Intake Total 2581 3630 480 Output Total 1110 1555 1375 Balance 1471 2075 -899 Result Diagrams: 12/20/19 04:22 12/20/19 04:22 Phys Exam - Physical Examination Constitutional: NAD HEENT: moist MMs, sclera anicteric, oral pharynx no lesions Neck: supple, full ROM Respiratory: no wheezing, no rhonchi Rales heard diffusely Cardiovascular: no significant murmur, no rub Bradycardia Gastrointestinal: soft, non-tender, no distention, positive bowel sounds Musculoskeletal: no edema, pulses present Neurological: non-focal, moves all 4 limbs Psychiatric: normal affect Skin: no rash Dx/Plan (1) Acute kidney injury superimposed on CKD Code(s): N17.9 - ACUTE KIDNEY FAILURE, UNSPECIFIED; N18.9 - CHRONIC KIDNEY DISEASE, UNSPECIFIED Status: Acute (2) Chronic respiratory failure Code(s): J96.10 - CHRONIC RESPIRATORY FAILURE, UNSP W HYPOXIA OR HYPERCAPNIA Status: Acute (3) Symptomatic bradycardia Code(s): R00.1 - BRADYCARDIA, UNSPECIFIED Status: Acute (4) Acute on chronic congestive heart failure Code(s): I50.9 - HEART FAILURE, UNSPECIFIED Status: Acute (5) Atrial fibrillation Code(s): I48.91 - UNSPECIFIED ATRIAL FIBRILLATION Status: Acute Qualifiers: Atrial fibrillation type: unspecified Qualified Code(s): I48.91 - Unspecified atrial fibrillation (6) Digoxin causing adverse effect in therapeutic use Code(s): T46.0X5A - ADVERSE EFFECT OF CARDI-STIM GLYCOS/DRUG SIMLAR ACT, INIT Status: Acute (7) Morbid obesity Code(s): E66.01 - MORBID (SEVERE) OBESITY DUE TO EXCESS CALORIES Status: Acute (8) Urinary retention due to benign prostatic hyperplasia Code(s): N40.1 - BENIGN PROSTATIC HYPERPLASIA WITH LOWER URINARY TRACT SYMP; R33.8 - OTHER RETENTION OF URINE Status: Acute (9) CAD (coronary artery disease) Code(s): I25.10 - ATHSCL HEART DISEASE OF [place] CORONARY ARTERY W/O ANG PCTRS Status: Chronic (10) MAY (obstructive sleep apnea) Code(s): G47.33 - OBSTRUCTIVE SLEEP APNEA (ADULT) (PEDIATRIC) Status: Suspected - Plan Plan: Patient is an 79 y/o male with a PMH of A-Fib who presents for evaluation of symptomatic Bradycardia, KOREY on CKD, Digoxin Toxicity. 1. Symptomatic Bradycardia, LBBB -Likely 2/2 Digoxin Toxicity and Hypokalemia, Metolazone use could have caused impaired Renal Clearance -Stable, on Dopamine gtt @ 5, pulse 40-60s - currently holding BB and Digoxin -Repeat TTE unchanged from 09/2019 -Cardiology: Consulted and currently following, recs appreciated - possible Bi- V PM/AICD placement -Pulmonology: Consulted and currently following, recs appreciated -Will plan for Pacemaker placement later this AM, per Dr. Cochran (EP) 2. KOREY on CKD 3 -Cr: 2.23 > 2.18 > 1.91 > 1.25 -Likely prerenal from CHF, volume depletion and bradycardia -PO hydration 3. Mild fluid Overload -Up 5L, Diuertics have been held due to low nml BPs on admission -Lasix 20 now 3. Hypokalemia -Improving : 2.8 > 3.2 > 3.4 - likely 2/2 home Metolazone -M.9 -Will continue to replace PO 4. Hx of Bladder CA, BPH -Urology: Consulted and currently following, recs appreciated -Will continue Flomax PO daily, per Urology 5. HFrEF -Echo (09/21): EF 40-45% with Diastolic Dysfunction -Echo (12/19): 55-60% with Diastolic Dysfunction -Patient appears euvolemic - will continue to monitor I/Os 6. Hypermangesemia -M.0 > 2.9 > 2.9 -May be contributing factor to #1, although bradycardia typically doesn't manifest until 4-5 mEq -Will continue to monitor with serial BMPs 7. Metabolic alkalosis -HCO3 38 (chronic), likely 2/2 combination of metolazone use, volume depletion and hypokalemia -Also with chronic respiratory acidosis, could be metabolic compensation component 8. Indeterminate troponin -Likely 2/2 to low perfusion state - 0.121 >0.118, stable. No chest pain. 9. HTN -Borderline BPs in the ED, started on Dopamine gtt @ 5mcg/min -BPs low normal currently - will continue to monitor and tailor antihypertensive regimen appropriately 10. Chronic Respiratory Failure 2/2 COPD -PRN Duonebs 11. Hx of GI Hemorrhage -Will hold anticoagulation Code status: Full VTE: SCD - Currently holding Lovenox for possible Cath/Pacemaker Diet: HH w/ Low Na PCP: Dr. Samson Dispo: Patient is currently stable and admitted to the Telemetry Floor for ongoing treatment of symptomatic Bradycardia, likely a result of LBBB or residual effects of Digoxin Toxicity & Metolazone - both of which have both been held. He is stable and hasn't required any further Atropine since admission. Mildly fluid overloaded today with pulm edema on exam- will give 20mg PO lasix. Monitor I/O. May need more diuresing but will refrain from aggressive diuresing due to KOREY. Replace potassium, check Mg/Phos. Appreciate cardiology recs Addendum - Attending - Attending Attestation Date/Time: 12/20/19 1014 Discussed and Agree with Assessment and Plan with Dr. Avitia. 79 yo M with chronic afib here for symptomatic bradycardia, korey on ckd, digoxin toxicity. Pacemaker placement later today. Scheduled for TURP with Urology on 01/02. Refused CPAP overnight did not like hospital masks, instructed family to bring home CPAP. Will monitor fluid status and give lasix as needed. RA Du
--- NOTE | 2019-12-20 07:50 | PRG ---
DATE OF SERVICE: 12/20/2019 SUBJECTIVE: Feeling fatigued, however, states that he is doing okay. OBJECTIVE: VITAL SIGNS: Stable. He is afebrile. I's and O's; 1 L in and 2100 out. He is negative 1 L. ABDOMEN: Morbidly obese. No rigidity. No rebound. GENITOURINARY: Noel catheter draining clear yellow urine. LABORATORY DATA: White count 12, hemoglobin 11, and platelets 176. Creatinine is 1.2. IMPRESSION AND PLAN: 1. An 79-year-old male admitted with bradycardia, digoxin toxicity. Cardiology following. I did speak with Dr. Harrison yesterday, when his renal function returns to normal, which it has, she plans a cardiac cath. 2. History of bladder cancer with positive cytology on recent cystoscopy. He is scheduled for TURBT on January 02. I did speak with Dr. Sandoval. He is cleared to proceed from his perspective. Await Cardiology, workup in progress to complete. 3. History of BPH, with no significant postvoid residual. However, tendency for retention with aggressive diuresis. 4. History of traumatic Noel catheter in the remote past. We will keep his indwelling Noel catheter for now, until he is optimized and workup complete by Cardiology. Once his disposition is complete, he can be discharged without his indwelling Noel catheter. Job ID: [id number] MTDD
[2019-12-20] MEDS: Potassium Chloride 20 MEQ TAB PO SCH (08:09)
[2019-12-20] MEDS: Aspirin Chewable 81 MG TAB PO SCH (08:09)
[2019-12-20] MEDS: Docusate 100 MG CAP PO SCH ×2 (08:09→20:30)
[2019-12-20] MEDS: Polyethylene Glycol 3350 17 GM Packet PO SCH (08:09)
[2019-12-20] MEDS: Tamsulosin HCl 0.4 MG CAP PO SCH (08:09)
[2019-12-20] MEDS ORDERED: Iopamidol 370 76% 50 ML VIAL FS ONE (10:45)
--- NOTE | 2019-12-20 11:13 | PDOC.CPN ---
- Subjective Date: 12/20/19 Time: 08:30 Interval history: The pt seen and examined. No overnight events. No cardiac complaints. - Objective Allergies/Adverse Reactions: Allergies Allergy/AdvReac Type Severity Reaction Status Date / Time No Known Drug Allergies Allergy Verified 08/03/18 08:42 Visit Medications: Current Medications Albuterol/Ipratropium (Duoneb) 3 ml NEB TID-RT PRN PRN Reason: Wheezing Amlodipine Besylate (Norvasc) 10 mg PO DAILY [facility] Last Admin: 12/19/19 08:35 Dose: 10 mg Aspirin (Aspirin Chewable) 81 mg PO QAM [facility] Last Admin: 12/20/19 08:09 Dose: 81 mg Docusate Sodium (Colace) 100 mg PO BID [facility] Last Admin: 12/20/19 08:09 Dose: 100 mg Dopamine HCl/Dextrose (Dopamine 400 Mg/D5w 250 Ml) 250 mls @ 24.113 mls/hr IVPB INF [facility]; Protocol Last Admin: 12/19/19 22:00 Dose: 250 mls Sodium Chloride (Normal Saline 0.9%) 1,000 mls @ 100 mls/hr IV .Q10H [facility] Last Admin: 12/18/19 22:10 Dose: 1,000 mls Polyethylene Glycol (Miralax) 17 gm PO DAILY [facility] Last Admin: 12/20/19 08:09 Dose: 17 gm Potassium Chloride (K-Dur) 20 meq PO QAM[facility] Last Admin: 12/20/19 08:09 Dose: 20 meq Sodium Chloride (Flush - Normal Saline) 10 ml IVF PRN PRN PRN Reason: Saline Flush Tamsulosin HCl (Flomax) [facility] Last Admin: 12/20/19 08:09 Dose: 0.4 mg Vital Signs & Weight: Vital Signs Temp Pulse Resp BP Pulse Ox 12/20/19 07:00 98.0 F 58 L 18 129/60 93 L 12/20/19 02:59 97.7 F 71 20 134/64 92 L 12/20/19 00:00 48 L 149/68 H Weight 288 lb 1.6 oz - Quality Measures Condition: Atrial Fibrillation/Flutter (hx or current) - Physical Exam General: alert & oriented x3 HEENT: mucus membranes moist Neck: supple neck Cardiac: irregularly regular, bradycardia Lungs: clear to auscultation, decreased breath sounds Extremities: no edema - Labs Result Diagrams: 12/20/19 04:22 12/20/19 04:22 Troponin/CKMB CK-MB (CK-2) 2.4 ng/mL (0-6.6) 12/17/19 20:03 Troponin I 0.118 ng/mL (< 0.028) H 12/17/19 20:03 - Telemetry Supraventricular conduction: atrial fibrillation - Assessment/Plan Assessment/Plan: 1. Digoxin toxicity 2. Symptomatic Bradycardia - Plan for BiV PM today by Dr Cochran today. 3. Jacquie on CKD stage 3 - 2/2 volume depletion; Improved today. 4. Chronic Afib - stable 5. Chronic combined HF - plan for BiV PM placement today; aiting for repeat Echo result 6. HTN - stable 7. COPD with Home O2 8. Sleep apnea with Cpap at HS 9. Anemia 10. Obese 12. Bladder cancer - plan for TURBT on 01/03/[address] Cruz. 13. Abnormal stress test - Plan for cath prior to d/c. 14. LBBB - plan for bi-V PM placement today by Dr Cochran. MAR reviewed * Echo on 12/18/2019 with EF 55-60%, grade III dd, mild TR Pt. seen and eval. by me. I agree with the A/P by the [employer]. He is scheduled for bi-V pacemaker today. today Exam unchanged except minimal lower leg edema. Will need to decrease IV fluids post Bi-V pacemaker.
--- NOTE | 2019-12-20 15:34 | EKG ---
Test Reason : Blood Pressure : / mmHG Vent. Rate : 047 BPM Atrial Rate : 070 BPM P-R Int : 000 ms QRS Dur : 174 ms QT Int : 508 ms P-R-T Axes : 000 -58 097 degrees QTc Int : 449 ms Atrial fibrillation with slow ventricular response Left axis deviation Right bundle branch block Inferior infarct , age undetermined Anterior infarct , age undetermined T wave abnormality, consider lateral ischemia Abnormal ECG Confirmed by MARILYN CASTILLO ([id number]), news videotape editor SHONNA BROUSSARD ([id number]) on 12/20/2019 3:33:55 PM Referred By: Confirmed By:MARILYN CASTILLO
[2019-12-20] MEDS ORDERED: Gentamicin 80 MG/2 ML VIAL ONE (16:37)
[2019-12-20] MEDS ORDERED: CEFAZOLIN 1 GM VIAL ONE (16:37)
[2019-12-20] MEDS ORDERED: Ketamine 50 MG/ML (10ML VIAL) ONE (16:54)
[2019-12-20] MEDS ORDERED: Midazolam HCl 2 mg/2 ml Vial ONE (17:05)
[2019-12-20] MEDS ORDERED: PROPOFOL 40 ML ONE (17:05)
[2019-12-20] MEDS ORDERED: Fentanyl 100 MCG/2 ML VIAL ONE (17:07)
--- NOTE | 2019-12-20 17:10 | PRG ---
DATE OF SERVICE: 12/20/2019 SUBJECTIVE: Quintin Rodgers did not wear the BiPAP last night. He said he could not get the mask to fit. He is tentatively on the schedule for pacemaker today. OBJECTIVE: VITAL SIGNS: He is afebrile, heart rate is 50, respiratory rate is in the 20s, oximetry is 96, and blood pressure 169/79. LUNGS: Clear. HEART: Regular rhythm. ABDOMEN: Soft. Bradycardia, tentatively for pacing. I have asked him to get in touch with his family to have them bring up his home noninvasive ventilator. Job ID: [id number]
[2019-12-20] MEDS ORDERED: Promethazine HCl 25 MG/ML VIAL IM PRN (17:56)
[2019-12-20] MEDS ORDERED: Ondansetron HCl/PF 4 MG/2 ML Vial IVP PRN (17:56)
[2019-12-20] MEDS ORDERED: Promethazine HCl 25 MG/ML VIAL SLOW IVP PRN (17:56)
[2019-12-20] MEDS ORDERED: PACU-Morphine 4MG/ML VIAL SLOW IVP PRN (17:56)
--- NOTE | 2019-12-20 19:24 | RAD ---
Exam: Chest one view HISTORY:Status post device placement Comparison: 12/17/2019 FINDINGS: Pacemaker: Interval placement of a left-sided transvenous pacemaker with lead positioned right atrium , right ventricle and coronary sinus. Cardiac silhouette:Cardiomegaly. Aorta: Unremarkable Pulmonary vessels: Normal Costophrenic angles: Clear LUNGS: Linear densities in the right lung base likely representing atelectasis. Elevation of the righ t hemidiaphragm. Pneumothorax: None Osseous abnormalities: None IMPRESSION: 1. Interval placement of a left-sided pacing device. No pneumothorax. 2. Right lower lobe atelectasis.
[2019-12-20] MEDS ORDERED: Acetaminophen/Codeine 30-300mg Tablet PO PRN ×2 (20:00)
[2019-12-20] MEDS: DOPamine 400 MG/D5W 250 ML 250 ML IVPB SCH (21:29)
[2019-12-20] MEDS ORDERED: Carvedilol 6.25 MG TAB PO SCH (22:15)
[2019-12-20] MEDS: Carvedilol 6.25 MG TAB PO SCH (23:39)
[2019-12-21] MEDS: ceFAZolin Sodium 1 GM/Dextrose 50 ML BAG IVPB SCH ×2 (00:51→09:57)
[2019-12-21 04:26] LABS: #Eosinphils 0.1 thou/uL (0.0-0.7); #Lymphocytes 1.1 thou/uL (1.20-3.40); #Monocytes 1.1 thou/uL (0.11-0.59); #Neutrophils 9.6 thou/uL (1.40-6.50); %Basophils 0.1 % (0.0-1.0); %Lymphocytes 9.1 % (21.0-51.0); %Monocytes 9.2 % (0.0-10.0); %Neutrophils 80.6 % (42.0-75.0); Mean Corpuscular HGB CONC 30.6 g/dL (32.0-36.0); Mean Corpuscular Hemoglobin 26.3 pg (27.0-31.0); Mean Corpuscular Volume 85.8 fL (78.0-98.0); Mean Platelet Volume 8.3 fL (7.4-10.4); Platelet Count 128 thou/uL (130-400); RBC Distribution Width 18.3 % (11.5-14.5); White Blood Cell (WBC) Count 11.9 thou/uL (4.8-10.8)
[2019-12-21 04:40] LABS: Anion Gap 15 mmol/L (10-20); BUN (Urea Nitrogen) 31 mg/dL (8.4-25.7); Calc. Creatinine Clearance 108 mL/min (70-130); Calcium 7.9 mg/dL (7.8-10.44); Carbon Dioxide 30 mmol/L (23-31); Chloride 91 mmol/L (98-107); Estimated GFR-MDRD 71; Glucose 97 mg/dL (83-110); Potassium 3.7 mmol/L (3.5-5.1); Sodium 132 mmol/L (136-145)
[2019-12-21] MEDS ORDERED: Sodium Chloride 0.9% 1,000 ML IV SCH (07:14)
--- NOTE | 2019-12-21 07:24 | PDOC.FM ---
- Subjective Subjective: Patient was sitting comfortably in bed any denied any acute overnight events. He had his CPAP machine brought from home but admits that he did not use it last night - he states that his respiratory status is at baseline. - Objective Vital Signs & Weight: Vital Signs (12 hours) Temp Pulse Resp BP Pulse Ox 12/21/19 07:15 98.0 F 70 18 169/80 H 96 12/21/19 03:52 97.8 F 70 18 168/74 H 95 12/21/19 00:00 87 131/60 94 L 12/20/19 20:00 98.6 F 70 16 155/72 H 92 L Weight Weight 130.226 kg Most Recent Monitor Data Heart Rate from ECG 49 NIBP 136/55 NIBP BP-Mean 82 Respiration from ECG 12 SpO2 98 I&O: 12/20/19 12/21/19 12/22/19 06:59 06:59 06:59 Intake Total 1008 900 Output Total 2100 1300 Balance -1092 -400 Result Diagrams: 12/21/19 04:16 12/21/19 04:16 Phys Exam - Physical Examination Constitutional: NAD HEENT: moist MMs, sclera anicteric, oral pharynx no lesions Neck: supple, full ROM Rales and scant wheezes heard diffusely Cardiovascular: RRR, no significant murmur, no rub Gastrointestinal: soft, non-tender, no distention, positive bowel sounds Musculoskeletal: no edema, pulses present Neurological: non-focal, moves all 4 limbs Lymphatic: no nodes Psychiatric: normal affect, A&O x 3 Skin: no rash Dx/Plan (1) Acute kidney injury superimposed on CKD Code(s): N17.9 - ACUTE KIDNEY FAILURE, UNSPECIFIED; N18.9 - CHRONIC KIDNEY DISEASE, UNSPECIFIED Status: Acute (2) Chronic respiratory failure Code(s): J96.10 - CHRONIC RESPIRATORY FAILURE, UNSP W HYPOXIA OR HYPERCAPNIA Status: Acute (3) Symptomatic bradycardia Code(s): R00.1 - BRADYCARDIA, UNSPECIFIED Status: Acute (4) Acute on chronic congestive heart failure Code(s): I50.9 - HEART FAILURE, UNSPECIFIED Status: Acute (5) Atrial fibrillation Code(s): I48.91 - UNSPECIFIED ATRIAL FIBRILLATION Status: Acute Qualifiers: Atrial fibrillation type: unspecified Qualified Code(s): I48.91 - Unspecified atrial fibrillation (6) Digoxin causing adverse effect in therapeutic use Code(s): T46.0X5A - ADVERSE EFFECT OF CARDI-STIM GLYCOS/DRUG SIMLAR ACT, INIT Status: Acute (7) Morbid obesity Code(s): E66.01 - MORBID (SEVERE) OBESITY DUE TO EXCESS CALORIES Status: Acute (8) Urinary retention due to benign prostatic hyperplasia Code(s): N40.1 - BENIGN PROSTATIC HYPERPLASIA WITH LOWER URINARY TRACT SYMP; R33.8 - OTHER RETENTION OF URINE Status: Acute (9) CAD (coronary artery disease) Code(s): I25.10 - ATHSCL HEART DISEASE OF [place] CORONARY ARTERY W/O ANG PCTRS Status: Chronic (10) MAY (obstructive sleep apnea) Code(s): G47.33 - OBSTRUCTIVE SLEEP APNEA (ADULT) (PEDIATRIC) Status: Suspected - Plan Plan: Patient is an 79 y/o male with a PMH of A-Fib who presents for evaluation of symptomatic Bradycardia, [place] on CKD, Digoxin Toxicity. 1. Symptomatic Bradycardia, LBBB -Likely 2/2 Digoxin Toxicity and Hypokalemia, Metolazone use could have caused impaired Renal Clearance -Initially stable on Dopamine gtt @ 5, pulse 40-60s - DC'd -Repeat TTE unchanged from 09/2019 -Cardiology: Consulted and currently following, recs appreciated -Pulmonology: Consulted and currently following, recs appreciated -EP: Consulted and currently following, recs appreciated -s/p Pacemaker placement on 12/19 -Cardiology, Pulmonology and EP on-board, recs appreciated 2. [place] on CKD 3, resolved -Cr: 2.23 > 2.18 > 1.91 > 1.25 . 1.01 -Likely prerenal from CHF, volume depletion and bradycardia 3. Mild fluid Overload -Up 5L, Diuertics have been held due to low nml BPs on admission - will give Lasix 20 mg IV this AM based on resolution of hypotension and Cr values 3. Hypokalemia -Improving : 2.8 > 3.2 > 3.4 > 3.7 - likely 2/2 home Metolazone -M.9 -Will continue to replace PO -Plan for repeat Mg on next round of labs 4. Hx of Bladder CA, BPH -Urology: Consulted and currently following, recs appreciated -Will continue Flomax PO daily, per Urology 5. HFrEF -Echo (09/21): EF 40-45% with Diastolic Dysfunction -Echo (12/19): 55-60% with Diastolic Dysfunction -Patient appears mildly fluid overloaded based on respiratory exam - will continue to monitor I/Os and daily weights 6. Hypermangesemia -M.0 > 2.9 > 2.9 -May be contributing factor to #1, although bradycardia typically doesn't manifest until 4-5 mEq -See #3 7. Metabolic alkalosis -HCO3 38 (chronic), likely 2/2 combination of metolazone use, volume depletion and hypokalemia -Also with chronic respiratory acidosis, could be metabolic compensation component 8. Indeterminate Troponin -Trops: 0.121 > 0.112 > 0.118 -Likely 2/2 to demand ischemia -Patient denies chest pain 9. HTN -Borderline BPs in the ED, started on Dopamine gtt @ 5mcg/min - DC'd due to rising pressures -See #3 10. Chronic Respiratory Failure 2/2 COPD -PRN Duonebs 11. Hx of GI Hemorrhage -Will hold anticoagulation Code status: Full VTE: SCD - Currently holding Lovenox for possible Cath/Pacemaker Diet: HH w/ Low Na PCP: Dr. Samson Dispo: Patient is currently stable and admitted to the Telemetry Floor for ongoing treatment of symptomatic Bradycardia, likely a result of LBBB or residual effects of Digoxin Toxicity & Metolazone - both of which have both been held. s/p Pacemaker placement Day 1. Will optimize medication regimen to control BP and improve respiratory status. Cardiology, Pulmonology and EP on- board, recs appreciated. Expected LOS > 48H. Addendum - Attending - Attending Attestation Date/Time: 12/21/19 1120 Discussed and Agree with Assessment and Plan with Dr. Avitia. 79 yo M with chronic afib here for symptomatic bradycardia, korey on ckd, digoxin toxicity. S/p pacemaker placement. Scheduled for TURP with Urology on 01/02, guadalupe to be removed before discharge. Tolerated home CPAP last night. Stopped IVF. Cardiac cath before d/c, appreciate cardiology recs.
[2019-12-21] MEDS: Potassium Chloride 20 MEQ TAB PO SCH (08:05)
[2019-12-21] MEDS: Carvedilol 6.25 MG TAB PO SCH ×2 (08:05→16:31)
[2019-12-21] MEDS: Tamsulosin HCl 0.4 MG CAP PO SCH (08:05)
[2019-12-21] MEDS: Aspirin Chewable 81 MG TAB PO SCH (08:05)
[2019-12-21] MEDS: Amlodipine 5 MG TAB PO SCH (08:05)
[2019-12-21] MEDS: Polyethylene Glycol 3350 17 GM Packet PO SCH (08:06)
[2019-12-21] MEDS: Docusate 100 MG CAP PO SCH ×2 (08:06→20:39)
--- NOTE | 2019-12-21 08:10 | PRG ---
DATE OF SERVICE: 12/21/2019 SUBJECTIVE: The patient is feeling significantly better after his pacemaker. OBJECTIVE: VITAL SIGNS: Stable, 98, 70, 18, 96%, 169/80. I's and O's 900 in, 1300 out. He is negative 400 mL. GENERAL: No acute distress. LUNGS: Clear. ABDOMEN: Morbidly obese. : Noel catheter draining concentrated yellow urine. EXTREMITIES: He has chronic lower extremity edema, however, this is significantly improved. PERTINENT LABORATORY DATA: White count 11, hemoglobin 11, platelet 128. Creatinine 1.0. IMPRESSION AND PLAN: 1. Mr. Rodgers is an 79-year-old male, admitted for bradycardia, digoxin toxicity. 2. History of severe chronic obstructive pulmonary disease. 3. History of congestive heart failure, fluid overload, which has improved. 4. History of bladder cancer with positive cytology on recent cystoscopy. He has been cleared from Pulmonary to proceed surgery scheduled for January 02. Cardiology workup in progress as I spoke with Dr. Harrison, as she would like to proceed with cardiac cath on this admission as renal function is stable. 5. History of benign prostatic hypertrophy with no significant postvoid residual ; however, tendency for retention with aggressive diuresis. 6. Traumatic Noel catheter placement in the remote past. Recent cystoscopy demonstrates no obstructing stricture of concern. Recently, catheter was placed without difficulty. I informed the nurse Noel catheter to be removed prior to discharge home. Dr. Pineda covering me tomorrow. Patient is cleared to be discharged from my perspective Job ID: [id number] MTDD
[2019-12-21] MEDS ORDERED: Furosemide 20 MG/2 ML VIAL SLOW IVP SCH ×2 (09:30→20:00)
--- NOTE | 2019-12-21 10:23 | PRG ---
DATE OF SERVICE: 12/21/2019 SUBJECTIVE: Did well overnight at his home. Nocturnal ventilator was delivered by his family, he wore last night. OBJECTIVE: VITAL SIGNS: He is afebrile. Heart rate 70, respiratory rate is 18, oximetry is 96%, and blood pressure 169/80. LUNGS: Clear. HEART: Regular rhythm. ABDOMEN: Soft. He had a pacemaker put in yesterday. His rate set at 70. White count 11.9, hemoglobin 11.0, platelets 128. Electrolytes are unremarkable. BUN is down to 31, it was 76 on the 18th. Postprocedure chest x-ray showed a left-sided pacing device. No pneumothorax. PLAN: Continue same. Job ID: [id number]
[2019-12-21] MEDS ORDERED: Benzonatate 100 MG CAP PO PRN (11:31)
--- NOTE | 2019-12-21 12:35 | RAD ---
PORTABLE CHEST 1 VIEW: Date: 12/21/2019 Time: 1222 hours HISTORY: Shortness of breath. COMPARISON: 12/20/2019. FINDINGS/IMPRESSION: Left-sided pacemaker remains in place. There is continued elevation of the right hemidiaphragm with a djacent mild atelectatic change. The heart size is stable. No lobar consolidation, pneumothoraces, fr ank pulmonary edema, or large effusions are seen. POS: C
[2019-12-21] MEDS ORDERED: Furosemide 40 MG/4 ML VIAL SLOW IVP SCH (15:00)
--- NOTE | 2019-12-21 15:34 | PDOC.EP ---
- Subjective Date: 12/21/19 Time: 08:00 Interval History: Follow-up after [employer] pacemaker implant on 12/20/2019. patient feels well reporting only mild tenderness at implant site. Otherwise he is without concern or complaint - Review of Systems Constitutional: denies: chills, sweats, weakness Respiratory: reports: shortness of breath. denies: cough, sputum, wheezing Cardiology: denies: chest pain, edema, heart racing, light headedness, palpitations Gastrointestinal: denies: abdominal pain, constipation, diarrhea Musculoskeletal: denies: unstable gait, shoulder pain, arm pain - Objective Allergies/Adverse Reactions: Allergies Allergy/AdvReac Type Severity Reaction Status Date / Time No Known Drug Allergies Allergy Verified 08/03/18 08:42 Current Medications Acetaminophen/Codeine Phosphate (Tylenol #3) 1 tab PO Q4H PRN PRN Reason: Mild Pain (1-3) Acetaminophen/Codeine Phosphate (Tylenol #3) 2 tab PO Q4H PRN PRN Reason: Moderate Pain (4-6) Last Admin: 12/20/19 21:33 Dose: 2 tab Albuterol/Ipratropium (Duoneb) 3 ml NEB TID-RT PRN PRN Reason: Wheezing Amlodipine Besylate (Norvasc) 5 mg PO DAILY [facility] Last Admin: 12/21/19 08:05 Dose: 5 mg Aspirin (Aspirin Chewable) 81 mg PO QAM [facility] Last Admin: 12/21/19 08:05 Dose: 81 mg Benzonatate (Tessalon) 100 mg PO Q4H PRN PRN Reason: Cough Last Admin: 12/21/19 12:10 Dose: 100 mg Carvedilol (Coreg) 6.25 mg PO BID-[facility] Last Admin: 12/21/19 08:05 Dose: 6.25 mg Cephalexin (Keflex) 250 mg PO TID [facility] Stop: 12/28/19 09:01 Docusate Sodium (Colace) 100 mg PO BID [facility] Last Admin: 12/21/19 08:06 Dose: 100 mg Furosemide (Lasix) 40 mg SLOW IVP 1500 [facility] Stop: 12/21/19 17:00 Polyethylene Glycol (Miralax) 17 gm PO DAILY [facility] Last Admin: 12/21/19 08:06 Dose: 17 gm Potassium Chloride (K-Dur) 20 meq PO QAM-[facility] Last Admin: 12/21/19 08:05 Dose: 20 meq Sodium Chloride (Flush - Normal Saline) 10 ml IVF PRN PRN PRN Reason: Saline Flush Tamsulosin HCl (Flomax) 0.4 mg PO QAM [facility] Last Admin: 12/21/19 08:05 Dose: 0.4 mg Vital Signs & Weight: Vital Signs Temp Pulse Resp BP Pulse Ox 12/21/19 11:43 97.8 F 70 22 H 133/66 99 12/21/19 08:05 96 12/21/19 07:15 98.0 F 70 18 169/80 H 96 12/21/19 03:52 97.8 F 70 18 168/74 H 95 Weight 287 lb 1.6 oz I/O: I/O 12/20/19 12/21/19 12/22/19 06:59 06:59 06:59 Intake Total 1008 900 Output Total 2100 1300 Balance -1092 -400 - Quality Measures Condition: Atrial Fibrillation/Flutter (hx or current) - Medication Contraindications No Anticoagulant reason: Medical contraindication (hx GIB) - Physical Exam HEENT: mucus membranes moist, normocephaly Neck: supple neck, no JVD/HJR, no lymphadenopathy Cardiology: regular rate, irregularly irregular Lungs: clear to auscultation, no wheeze, rales, rhonchi Neurology: cranial nerve 2-12 intact, no lateralizing findings Skin: device site stable w/o swelling - Labs Result Diagrams: 12/21/19 04:16 12/21/19 04:16 - Device Device: biventricular, pacemaker Device Result: [employer] - Assessment/Plan Assessment/Plan: 1. sick sinus syndrome 2. trifascicular block 3. longstanding persistent atrial fibrillation 4. contraindication to chronic anticoagulation with a history of GI bleed 5. status post [employer] pacemaker placement 12/20/2019 6. morbid obesity 7. preserved ejection fraction 55-60% he is doing well after pacemaker implant yesterday. Site is healing nicely and no acute bleeding issues have been seen. Chest x-ray is stable as well as device check today. Post implant Keflex has been ordered which needs to continue x7 days upon discharge. We will now monitor his atrial arrhythmias through his pacemaker. with his history of GI bleed he has not been a candidate for long-term anticoagulation, Watchman may be a consideration if he is felt to be an acceptable candidate for short-term anticoagulation. will discuss this as an outpatient upon his return. thank you for allowing me to participate in the care of this patient. from electrophysiology perspective he may discharge home
[2019-12-21] MEDS: Cephalexin 250 MG CAP PO SCH ×2 (16:16→20:39)
--- NOTE | 2019-12-21 17:21 | PDOC.CPN ---
- Subjective Date: 12/21/19 Time: 17:29 Interval history: The pt seen and examined. No overnight events. No cardiac complaints, except complaining of fatigue today - Objective Allergies/Adverse Reactions: Allergies Allergy/AdvReac Type Severity Reaction Status Date / Time No Known Drug Allergies Allergy Verified 08/03/18 08:42 Visit Medications: Current Medications Acetaminophen/Codeine Phosphate (Tylenol #3) 1 tab PO Q4H PRN PRN Reason: Mild Pain (1-3) Acetaminophen/Codeine Phosphate (Tylenol #3) 2 tab PO Q4H PRN PRN Reason: Moderate Pain (4-6) Last Admin: 12/20/19 21:33 Dose: 2 tab Albuterol/Ipratropium (Duoneb) 3 ml NEB TID-RT PRN PRN Reason: Wheezing Amlodipine Besylate (Norvasc) 5 mg PO DAILY [facility] Last Admin: 12/21/19 08:05 Dose: 5 mg Aspirin (Aspirin Chewable) 81 mg PO QAM [facility] Last Admin: 12/21/19 08:05 Dose: 81 mg Benzonatate (Tessalon) 100 mg PO Q4H PRN PRN Reason: Cough Last Admin: 12/21/19 12:10 Dose: 100 mg Carvedilol (Coreg) 6.25 mg PO BID-[facility] Last Admin: 12/21/19 16:31 Dose: 6.25 mg Cephalexin (Keflex) 250 mg PO TID [facility] Stop: 12/28/19 09:01 Last Admin: 12/21/19 16:16 Dose: 250 mg Docusate Sodium (Colace) 100 mg PO BID [facility] Last Admin: 12/21/19 08:06 Dose: 100 mg Miscellaneous Information (Communication Order-Pharmacy) 0 each FS ONE [facility] Stop: 12/21/19 23:59 Polyethylene Glycol (Miralax) 17 gm PO DAILY [facility] Last Admin: 12/21/19 08:06 Dose: 17 gm Potassium Chloride (K-Dur) 20 meq PO QAM-[facility] Last Admin: 12/21/19 08:05 Dose: 20 meq Sodium Chloride (Flush - Normal Saline) 10 ml IVF PRN PRN PRN Reason: Saline Flush Tamsulosin HCl (Flomax) [facility] [place] Last Admin: 12/21/19 08:05 Dose: 0.4 mg Vital Signs & Weight: Vital Signs Temp Pulse Resp BP Pulse Ox 12/21/19 16:55 98.2 F 70 18 170/79 H 90 L 12/21/19 11:43 97.8 F 70 22 H 133/66 99 12/21/19 08:05 96 12/21/19 07:15 98.0 F 70 18 169/80 H 96 Weight 287 lb 1.6 oz - Quality Measures Condition: Atrial Fibrillation/Flutter (hx or current) - Medication Contraindications No Anticoagulant reason: Medical contraindication (hx GIB) - Physical Exam General: alert & oriented x3 HEENT: mucus membranes moist Neck: supple neck Cardiac: irregularly regular Lungs: decreased breath sounds Extremities: other: (1-2+ pitting BLE edema today) - Labs Result Diagrams: 12/21/19 04:16 12/21/19 04:16 Troponin/CKMB CK-MB (CK-2) 2.4 ng/mL (0-6.6) 12/17/19 20:03 Troponin I 0.118 ng/mL (< 0.028) H 12/17/19 20:03 - Telemetry Sinus rhythms and dysrhythmias: other (V paced) - Assessment/Plan Assessment/Plan: 1. Digoxin toxicity 2. Symptomatic Bradycardia - Plan for BiV PM today by Dr Cochran today. 3. Jacquie on CKD stage 3 - 2/2 volume depletion; Improved today. 4. Chronic Afib - stable;cont to control HR with BBlocker; possible may resume with low dose of Digoxin 5. Chronic combined HF - plan for BiV PM placement on 12/20/2019; 6. HTN - stable 7. COPD with Home O2 8. Sleep apnea with Cpap at HS 9. Anemia 10. Obese 12. Bladder cancer - plan for TURBT on 01/03/[address] Cruz. 13. Abnormal stress test - Plan for cath tomorrow. 14. LBBB - plan for bi-V PM placement today by Dr Cochran. MAR reviewed * Echo on 12/18/2019 with EF 55-60%, grade III dd, mild TR Pt. seen and eval. by me. He is actually feeling better after the pacemaker. He remains in atrial fibrillation. I spoke with him about his prior GI bleed and he explained that it was due to hemorhoids and that he had been constipated and straining. Given that, he should be a candidate for OAC. Tomorrow he will undergo a cardiac cath to r/o CAD after he had an abnormal stress test. If the cath does not indicate any significant CAD then hopefuly he can proceed with the bladder surgery and thereafter start OAC to decrease the risk of embolic phenomenon. Also if he can tolerate OAC then after 4-6 weeks we may try to cardiovert the atrial fibrillation. jossie
[2019-12-21] MEDS ORDERED: Communication Order-Pharmacy FS SCH (17:30)
--- NOTE | 2019-12-21 21:59 | EKG ---
Test Reason : Blood Pressure : / mmHG Vent. Rate : 071 BPM Atrial Rate : 074 BPM P-R Int : 000 ms QRS Dur : 118 ms QT Int : 406 ms P-R-T Axes : 000 113 -69 degrees QTc Int : 441 ms Ventricular-paced rhythm Abnormal ECG When compared with ECG of 17-DEC-2019 13:05, Electronic ventricular pacemaker has replaced Atrial fibrillation Vent. rate has increased BY 24 BPM Confirmed by Mario GUERRA ([id number]) on 12/21/2019 9:59:03 PM Referred By: DARÍO Confirmed By:Mario GUERRA
--- NOTE | 2019-12-21 22:00 | EKG ---
Test Reason : Blood Pressure : / mmHG Vent. Rate : 070 BPM Atrial Rate : 072 BPM P-R Int : 000 ms QRS Dur : 108 ms QT Int : 388 ms P-R-T Axes : 079 113 -69 degrees QTc Int : 419 ms Electronic ventricular pacemaker When compared with ECG of 20-DEC-2019 19:12, (Unconfirmed) No significant change was found Confirmed by Mario GUERRA ([id number]) on 12/21/2019 9:59:50 PM Referred By: [facility] Confirmed By:Mario GUERRA
--- NOTE | 2019-12-22 05:43 | PDOC.FM ---
- Subjective Subjective: Patient was resting comfortably in bed at the time of evaluation. He denied any acute overnight events, and stated that he slept well and that his respiratory status was greatly improved from the previous evaluation. - Objective Vital Signs & Weight: Vital Signs (12 hours) Temp Pulse Resp BP Pulse Ox 12/22/19 04:00 97.9 F 79 18 134/66 88 L 12/21/19 19:34 97.6 F 69 18 153/70 H 88 L 12/21/19 19:23 88 L Weight Weight 130.317 kg Most Recent Monitor Data Heart Rate from ECG 49 NIBP 136/55 NIBP BP-Mean 82 Respiration from ECG 12 SpO2 98 I&O: 12/20/19 12/21/19 12/22/19 06:59 06:59 06:59 Intake Total 0713 452 3128 Output Total 2100 1300 3100 Balance -1092 -400 -3085 Result Diagrams: 12/22/19 04:12 12/22/19 04:19 Phys Exam - Physical Examination Constitutional: NAD HEENT: moist MMs, sclera anicteric, oral pharynx no lesions Neck: supple, full ROM Crackles, course breath sounds in upper lung bates - on 2L via NC Cardiovascular: RRR, no significant murmur, no rub Ventricular-paced rhythm on monitor Gastrointestinal: soft, non-tender, no distention, positive bowel sounds Musculoskeletal: no edema, pulses present Neurological: non-focal, moves all 4 limbs Psychiatric: normal affect Skin: no rash Dx/Plan (1) Acute kidney injury superimposed on CKD Code(s): N17.9 - ACUTE KIDNEY FAILURE, UNSPECIFIED; N18.9 - CHRONIC KIDNEY DISEASE, UNSPECIFIED Status: Acute (2) Chronic respiratory failure Code(s): J96.10 - CHRONIC RESPIRATORY FAILURE, UNSP W HYPOXIA OR HYPERCAPNIA Status: Acute (3) Symptomatic bradycardia Code(s): R00.1 - BRADYCARDIA, UNSPECIFIED Status: Acute (4) Acute on chronic congestive heart failure Code(s): I50.9 - HEART FAILURE, UNSPECIFIED Status: Acute (5) Atrial fibrillation Code(s): I48.91 - UNSPECIFIED ATRIAL FIBRILLATION Status: Acute Qualifiers: Atrial fibrillation type: unspecified Qualified Code(s): I48.91 - Unspecified atrial fibrillation (6) Digoxin causing adverse effect in therapeutic use Code(s): T46.0X5A - ADVERSE EFFECT OF CARDI-STIM GLYCOS/DRUG SIMLAR ACT, INIT Status: Acute (7) Morbid obesity Code(s): E66.01 - MORBID (SEVERE) OBESITY DUE TO EXCESS CALORIES Status: Acute (8) Urinary retention due to benign prostatic hyperplasia Code(s): N40.1 - BENIGN PROSTATIC HYPERPLASIA WITH LOWER URINARY TRACT SYMP; R33.8 - OTHER RETENTION OF URINE Status: Acute (9) CAD (coronary artery disease) Code(s): I25.10 - ATHSCL HEART DISEASE OF [place] CORONARY ARTERY W/O ANG PCTRS Status: Chronic (10) MAY (obstructive sleep apnea) Code(s): G47.33 - OBSTRUCTIVE SLEEP APNEA (ADULT) (PEDIATRIC) Status: Suspected - Plan Plan: Patient is an 79 y/o male with a PMH of A-Fib who presents for evaluation of symptomatic Bradycardia, KOREY on CKD, Digoxin Toxicity. 1. Symptomatic Bradycardia, LBBB -Likely 2/2 Digoxin Toxicity and Hypokalemia, Metolazone use could have caused impaired Renal Clearance -Initially stable on Dopamine gtt @ 5, pulse 40-60s - DC'd -Repeat TTE unchanged from 09/2019 -Cardiology: Consulted and currently following, recs appreciated -Pulmonology: Consulted and currently following, recs appreciated -EP: Consulted and currently following, recs appreciated -s/p Pacemaker placement on 12/19 -Cardiology, Pulmonology and EP on-board, recs appreciated -Di.9 > 1.45 -Will plan for heart cath on 12/21, per Cardiology PA note 2. KOREY on CKD 3, resolved -Cr: 2.23 > 2.18 > 1.91 > 1.25 . 1.01 -Likely prerenal from CHF, volume depletion and bradycardia 3. Mild fluid Overload -Up 5L, Diuertics have been held due to low nml BPs on admission -s/p multiple doses of Lasix - will give Furosemide 40 mg IV this AM 3. Hypokalemia, resolved -Improving : 2.8 > 3.2 > 3.4 > 3.7 - likely 2/2 home Metolazone -Will continue to replace PO 4. Hx of Bladder CA, BPH -Urology: Consulted and currently following, recs appreciated -Will continue Flomax PO daily, per Urology 5. HFrEF -Echo (09/21): EF 40-45% with Diastolic Dysfunction -Echo (12/19): 55-60% with Diastolic Dysfunction -Patient appears mildly fluid overloaded based on respiratory exam - will continue to monitor I/Os and daily weights 6. Hypermangesemia, resolved -M.0 > 2.9 > 2.9 >2.6 -May be contributing factor to #1, although bradycardia typically doesn't manifest until 4-5 mEq -See #3 7. Metabolic alkalosis -HCO3 38 (chronic), likely 2/2 combination of metolazone use, volume depletion and hypokalemia -Also with chronic respiratory acidosis, could be metabolic compensation component 8. Indeterminate Troponin -Trops: 0.121 > 0.112 > 0.118 -Likely 2/2 to demand ischemia -Patient denies chest pain 9. HTN -Borderline BPs in the ED, started on Dopamine gtt @ 5mcg/min - DC'd due to rising pressures -See #3 10. Chronic Respiratory Failure 2/2 COPD -PRN Duonebs -Patient now has home CPAP 11. Hx of GI Hemorrhage -Will hold anticoagulation Code status: Full VTE: SCD - Currently holding Lovenox for possible Cath/Pacemaker Diet: HH w/ Low Na PCP: Dr. Samson Dispo: Patient is currently stable and admitted to the Telemetry Floor for ongoing treatment of symptomatic Bradycardia, likely a result of LBBB or residual effects of Digoxin Toxicity & Metolazone - both of which have both been held. s/p Pacemaker placement Day 1. Will optimize medication regimen to control BP and improve respiratory status. Cardiology, Pulmonology and EP on- board, recs appreciated. Plan for Heart Cath today. Expected LOS > 48H. Addendum - Attending - Attending Attestation Date/Time: 12/22/19 [id number] Discussed and Agree with Assessment and Plan with Dr. Avitia. 79 yo M with chronic afib here for symptomatic bradycardia, korey on ckd, digoxin toxicity. S/p pacemaker placement. Scheduled for TURP with Urology on 01/02, guadalupe to be removed before discharge. Tolerated home CPAP last night. Continue IV lasix. Cardiac cath today.
[2019-12-22] MEDS: Amlodipine 5 MG TAB PO SCH (05:44)
[2019-12-22] MEDS: Aspirin Chewable 81 MG TAB PO SCH (05:44)
[2019-12-22] MEDS: Carvedilol 6.25 MG TAB PO SCH ×2 (05:45→18:03)
[2019-12-22 05:51] LABS: Hemoglobin 11.2 g/dL (14.0-18.0); Mean Corpuscular Volume 86.1 fL (78.0-98.0); Mean Platelet Volume 8.2 fL (7.4-10.4); Platelet Count 147 thou/uL (130-400); RBC Distribution Width 18.7 % (11.5-14.5); Red Blood Cell (RBC) Count 4.47 mill/uL (4.70-6.10); White Blood Cell (WBC) Count 11.8 thou/uL (4.8-10.8)
[2019-12-22 06:06] LABS: #Eosinphils 0.1 thou/uL (0.0-0.7); #Lymphocytes 1.2 thou/uL (1.20-3.40); #Monocytes 0.7 thou/uL (0.11-0.59); #Neutrophils 9.8 thou/uL (1.40-6.50); %Basophils 0.1 % (0.0-1.0); %Eosinophils 1.1 % (0.0-10.0); %Lymphocytes 9.8 % (21.0-51.0); %Monocytes 6.2 % (0.0-10.0); %Neutrophils 82.8 % (42.0-75.0); Hypochromia SLIGHT = 6-15 cells (100X) (0-5/hpf); MDiff Complete? YES; Platelet Morphology Comment Appears Adequate
[2019-12-22 07:16] LABS: Digoxin 1.48 ng/mL (0.8-2.0)
[2019-12-22] MEDS ORDERED: Furosemide 40 MG/4 ML VIAL SLOW IVP SCH (08:15)
[2019-12-22 08:18] LABS: BUN (Urea Nitrogen) 29 mg/dL (8.4-25.7); Calc. Creatinine Clearance 90 mL/min (70-130); Calcium 8.7 mg/dL (7.8-10.44); Estimated GFR-MDRD 58; Glucose 103 mg/dL (83-110)
[2019-12-22 08:27] LABS: Anion Gap 16 mmol/L (10-20); Carbon Dioxide 38 mmol/L (23-31); Chloride 86 mmol/L (98-107); Potassium 3.6 mmol/L (3.5-5.1); Sodium 136 mmol/L (136-145)
[2019-12-22] MEDS ORDERED: Sodium Chloride 1 GM TAB PO SCH (08:30)
[2019-12-22] MEDS ORDERED: Verapamil 5 MG/2 ML VIAL ONE (09:32)
[2019-12-22] MEDS ORDERED: Nitroglycerin 100MG/250ML BOT 250 ML ONE (09:32)
[2019-12-22] MEDS ORDERED: Heparin 10,000 UNITS/1 ML VIAL ONE (09:32)
[2019-12-22] MEDS ORDERED: Sodium Chloride 0.9% 200 ML IV PRN (11:41)
[2019-12-22] MEDS ORDERED: Acetaminophen/Codeine 30-300mg Tablet PO PRN ×2 (11:41)
[2019-12-22] MEDS ORDERED: Nitroglycerin 0.4 MG TAB (25 Tab Bottle) SL PRN (11:41)
[2019-12-22] MEDS: Docusate 100 MG CAP PO SCH ×2 (12:29→20:20)
[2019-12-22] MEDS: Tamsulosin HCl 0.4 MG CAP PO SCH (12:29)
[2019-12-22] MEDS: Potassium Chloride 20 MEQ TAB PO SCH (12:29)
[2019-12-22] MEDS: Polyethylene Glycol 3350 17 GM Packet PO SCH (12:29)
[2019-12-22] MEDS: Cephalexin 250 MG CAP PO SCH ×3 (12:29→20:20)
--- NOTE | 2019-12-22 12:42 | PDOC.CPN ---
- Subjective Date: 12/22/19 Time: 12:46 Interval history: The pt seen and examined. No overnight events. No cardiac complaints. - Objective Allergies/Adverse Reactions: Allergies Allergy/AdvReac Type Severity Reaction Status Date / Time No Known Drug Allergies Allergy Verified 08/03/18 08:42 Visit Medications: Current Medications Acetaminophen/Codeine Phosphate (Tylenol #3) 1 tab PO Q4H PRN PRN Reason: Mild Pain (1-3) Acetaminophen/Codeine Phosphate (Tylenol #3) 2 tab PO Q4H PRN PRN Reason: Moderate Pain (4-6) Albuterol/Ipratropium (Duoneb) 3 ml NEB TID-RT PRN PRN Reason: Wheezing Amlodipine Besylate (Norvasc) 5 mg PO DAILY [facility] Last Admin: 12/22/19 05:44 Dose: 5 mg Aspirin (Aspirin Chewable) 81 mg PO [facility] Last Admin: 12/22/19 05:44 Dose: 81 mg Benzonatate (Tessalon) 100 mg PO Q4H PRN PRN Reason: Cough Last Admin: 12/21/19 12:10 Dose: 100 mg Carvedilol (Coreg) 6.25 mg PO BID-[facility] Last Admin: 12/22/19 05:45 Dose: 6.25 mg Cephalexin (Keflex) 250 mg PO TID [facility] Stop: 12/28/19 09:01 Last Admin: 12/22/19 12:29 Dose: 250 mg Docusate Sodium (Colace) 100 mg PO BID [facility] Last Admin: 12/22/19 12:29 Dose: 100 mg Furosemide (Lasix) 40 mg PO DAILY-[facility] Sodium Chloride (Normal Saline 0.9%) 200 mls @ 0 mls/hr IV ONE PRN PRN Reason: SBP < 90 Stop: 12/22/19 23:00 Nitroglycerin (Nitrostat) 0.4 mg SL Q5MIN PRN PRN Reason: Chest Pain Polyethylene Glycol (Miralax) 17 gm PO DAILY [facility] Last Admin: 12/22/19 12:29 Dose: 17 gm Potassium Chloride (K-Dur) 20 meq PO QAM-[facility] Last Admin: 12/22/19 12:29 Dose: 20 meq Sodium Chloride (Flush - Normal Saline) 10 ml IVF PRN PRN PRN Reason: Saline Flush Tamsulosin HCl (Flomax) 0.4 mg PO QAM [facility] Last Admin: 12/22/19 12:29 Dose: 0.4 mg Vital Signs & Weight: Vital Signs Temp Pulse Resp BP BP Pulse Ox 12/22/19 08:00 98.1 F 69 20 149/71 H 94 L 12/22/19 07:45 92 L 12/22/19 05:45 136/79 12/22/19 05:44 79 136/77 12/22/19 04:00 97.9 F 79 18 134/66 88 L Weight 287 lb 4.8 oz - Quality Measures Condition: Atrial Fibrillation/Flutter (hx or current) - Medication Contraindications No Anticoagulant reason: Medical contraindication (hx GIB) - Physical Exam General: alert & oriented x3 HEENT: mucus membranes moist Neck: supple neck Cardiac: irregularly regular, S1/S2 Lungs: decreased breath sounds Neuro: cranial nerve 2-12 intact Abdomen: unremarkable Extremities: other: (1+ pitting BLE edema) Skin: clear - Labs Result Diagrams: 12/22/19 04:12 12/22/19 04:19 Troponin/CKMB CK-MB (CK-2) 2.4 ng/mL (0-6.6) 12/17/19 20:03 Troponin I 0.118 ng/mL (< 0.028) H 12/17/19 20:03 - Telemetry Sinus rhythms and dysrhythmias: other (Afib and V paced) - Assessment/Plan Assessment/Plan: 1. Digoxin toxicity 2. Symptomatic Bradycardia - s/p BiV PM placement on 12/20/2019; 3. Jacquie on CKD stage 3 - 2/2 volume depletion; Improved today. 4. Chronic Afib - stable; cont to control HR with BBlocker; possible may resume with low dose of Digoxin; cont ASA 81mg qd until he will undergo TURBT on 2019, then may start Eliquis 5mg BID (hx of GI bleed; however, per the pt, he had 1 episode of severe bleeding from his hemorrhoid in past) Also if he can tolerate OAC then after 4-6 weeks we may try to cardiovert the atrial fibrillation. 5. Chronic combined HF with s/p BiV PM placement on 12/20/2019; On Coreg, Lasix 40mg qd with Kcl 20 mEq qd 6. HTN - stable 7. COPD with Home O2 8. Sleep apnea with Cpap at HS 9. Anemia 10. Obese 12. Bladder cancer - plan for TURBT on 01/03/[address] Cruz. 13. Abnormal stress test - S/p LHC on 12/22/2019 with stenosis in LAD, which will need further intervention (such as stent) after TURBT procedure on 2019. 14. LBBB - s/p bi-V PM placement on 12/20/2019. MAR reviewed * Echo on 12/18/2019 with EF 55-60%, grade III dd, mild TR * S/p LHC on 12/22/2019 with 60-75% stenosis in prox LAD, 30-40% in RCA, with EF 60-65% * From Cardiac standpoint, the pt can be d/c home today if his VS is stable; the pt will f/u with Dr Harrison' office in 1-2 wks. Pt. seen and eval. by me. I agree with the A/P by the PHOTOGRAPHIC LITHOGRAPHER.We have discussed this case in detail. I also spoke to Dr. Park about his upcoming surgery for his bladder surgery. He has an LAD stenosis of 60-75% but good flow down the LAD. He should be okay to proceed with the urological procedure and when there is no risk of bleeding then proceed with probable stent placement to the proximal LAD.
--- NOTE | 2019-12-22 15:26 | PDOC.EP ---
- Subjective Date: 12/22/19 Time: 15:24 Interval History: Continue to progress well. No new symptoms. - Review of Systems ROS unobtainable: due to endotracheal tube, due to mental status Respiratory: denies: cough, dry, hemoptysis, pleuritic pain, shortness of breath , SOB with excertion, sputum, wheezing, other Cardiology: denies: chest pain, edema, heart racing, light headedness, paroxysmal noc. dyspnea, orthopnea, palpitations, passing out, pleuritic pain, pressure, swelling, other - Objective Allergies/Adverse Reactions: Allergies Allergy/AdvReac Type Severity Reaction Status Date / Time No Known Drug Allergies Allergy Verified 08/03/18 08:42 Current Medications Acetaminophen/Codeine Phosphate (Tylenol #3) 1 tab PO Q4H PRN PRN Reason: Mild Pain (1-3) Acetaminophen/Codeine Phosphate (Tylenol #3) 2 tab PO Q4H PRN PRN Reason: Moderate Pain (4-6) Albuterol/Ipratropium (Duoneb) 3 ml NEB TID-RT PRN PRN Reason: Wheezing Amlodipine Besylate (Norvasc) 5 mg PO DAILY [facility] Last Admin: 12/22/19 05:44 Dose: 5 mg Aspirin (Aspirin Chewable) 81 mg PO QAM [facility] Last Admin: 12/22/19 05:44 Dose: 81 mg Benzonatate (Tessalon) 100 mg PO Q4H PRN PRN Reason: Cough Last Admin: 12/21/19 12:10 Dose: 100 mg Carvedilol (Coreg) 6.25 mg PO BID-[facility] Last Admin: 12/22/19 05:45 Dose: 6.25 mg Cephalexin (Keflex) 250 mg PO TID [facility] Stop: 12/28/19 09:01 Last Admin: 12/22/19 12:29 Dose: 250 mg Docusate Sodium (Colace) 100 mg PO BID [facility] Last Admin: 12/22/19 12:29 Dose: 100 mg Furosemide (Lasix) 40 mg PO DAILY-[facility] Sodium Chloride (Normal Saline 0.9%) 200 mls @ 0 mls/hr IV ONE PRN PRN Reason: SBP < 90 Stop: 12/22/19 23:00 Nitroglycerin (Nitrostat) 0.4 mg SL Q5MIN PRN PRN Reason: Chest Pain Polyethylene Glycol (Miralax) 17 gm PO DAILY [facility] Last Admin: 12/22/19 12:29 Dose: 17 gm Potassium Chloride (K-Dur) 20 meq PO QAM-[facility] Last Admin: 12/22/19 12:29 Dose: 20 meq Sodium Chloride (Flush - Normal Saline) 10 ml IVF PRN PRN PRN Reason: Saline Flush Tamsulosin HCl (Flomax) 0.4 mg PO QAM [facility] Last Admin: 12/22/19 12:29 Dose: 0.4 mg Vital Signs & Weight: Vital Signs Temp Pulse Resp BP BP Pulse Ox 12/22/19 12:00 97.5 F L 70 20 152/75 H 93 L 12/22/19 08:00 98.1 F 69 20 149/71 H 94 L 12/22/19 07:45 92 L 12/22/19 05:45 136/79 12/22/19 05:44 79 136/77 12/22/19 04:00 97.9 F 79 18 134/66 88 L Weight 287 lb 4.8 oz I/O: I/O 12/21/19 12/22/19 12/23/19 06:59 06:59 06:59 Intake Total 900 1300 Output Total 1300 3100 Balance -400 -1800 - Quality Measures Condition: Atrial Fibrillation/Flutter (hx or current) - Medication Contraindications No Anticoagulant reason: Medical contraindication (hx GIB) - Physical Exam General: alert & oriented x3, appears well, no apparent distress, speech clear, affect appropriate Neck: supple neck Cardiology: regular rate and rhythm, no murmur Lungs: clear to auscultation, no wheezes, no rales Abdomen: unremarkable Skin: device site stable w/o swelling - Chadsvasc Risk factors Congestive heart failure: 1 Hypertension: 1 Age >75: 2 Diabetes mellitus: 1 Risk Score: 5 - Labs Result Diagrams: 12/22/19 04:12 12/22/19 04:19 - EKG Interpretation EKG Method: Telemetry EKG shows: Atrial fibrillation (BiV paced) - Device Device: biventricular, pacemaker
--- NOTE | 2019-12-22 21:36 | PRG ---
DATE OF SERVICE: 12/22/2019 SUBJECTIVE: Mr. Rodgers is doing well after his pacemaker. There are no acute issues. He is not having any pulmonary issues. He is wearing his home noninvasive ventilatory device. No new problems reported. OBJECTIVE: VITAL SIGNS: Stable. Heart rate 70s. He is afebrile. Blood pressure 120/60. Electrophysiology signed off. We will sign off. Job ID: [id number]
[2019-12-23 04:52] LABS: Anion Gap 14 mmol/L (10-20); BUN (Urea Nitrogen) 22 mg/dL (8.4-25.7); Calc. Creatinine Clearance 113 mL/min (70-130); Calcium 8.4 mg/dL (7.8-10.44); Carbon Dioxide 37 mmol/L (23-31); Chloride 87 mmol/L (98-107); Estimated GFR-MDRD 75; Glucose 104 mg/dL (83-110); Potassium 3.5 mmol/L (3.5-5.1); Sodium 134 mmol/L (136-145)
[2019-12-23 05:04] LABS: #Eosinphils 0.2 thou/uL (0.0-0.7); #Monocytes 1.1 thou/uL (0.11-0.59); #Neutrophils 8.2 thou/uL (1.40-6.50); %Basophils 0.2 % (0.0-1.0); %Eosinophils 1.6 % (0.0-10.0); %Lymphocytes 9.1 % (21.0-51.0); %Monocytes 10.2 % (0.0-10.0); %Neutrophils 78.9 % (42.0-75.0); Mean Corpuscular HGB CONC 28.8 g/dL (32.0-36.0); Mean Corpuscular Hemoglobin 24.6 pg (27.0-31.0); Mean Corpuscular Volume 85.5 fL (78.0-98.0); Mean Platelet Volume 8.4 fL (7.4-10.4); Platelet Count 145 thou/uL (130-400); RBC Distribution Width 18.4 % (11.5-14.5); Red Blood Cell (RBC) Count 4.49 mill/uL (4.70-6.10); White Blood Cell (WBC) Count 10.4 thou/uL (4.8-10.8)
--- NOTE | 2019-12-23 05:44 | PDOC.FM ---
- Subjective Subjective: Patient was sitting up in bed at the time of evaluation. He denied any acute overnight events and stated that he was eager to return home. - Objective Vital Signs & Weight: Vital Signs (12 hours) Temp Pulse Resp BP BP Pulse Ox 12/23/19 03:06 97.1 F L 69 20 137/64 93 L 12/23/19 01:55 94 L 12/22/19 19:35 97.8 F 70 20 126/60 93 L 12/22/19 18:03 128/60 Weight Weight 125.191 kg Most Recent Monitor Data Heart Rate from ECG 49 NIBP 136/55 NIBP BP-Mean 82 Respiration from ECG 12 SpO2 98 I&O: 12/21/19 12/22/19 12/23/19 06:59 06:59 06:59 Intake Total 900 1300 1100 Output Total 1300 3100 2900 Balance -400 -1800 -1800 Result Diagrams: 12/23/19 04:14 12/23/19 04:14 Phys Exam - Physical Examination Constitutional: NAD HEENT: moist MMs, sclera anicteric, oral pharynx no lesions Neck: supple, full ROM Course breath sounds bilaterally - improved from previous evaluation Cardiovascular: RRR, no significant murmur, no rub Gastrointestinal: soft, non-tender, no distention, positive bowel sounds Musculoskeletal: no edema, pulses present Neurological: non-focal, moves all 4 limbs Psychiatric: normal affect, A&O x 3 Skin: no rash Dx/Plan (1) Acute kidney injury superimposed on CKD Code(s): N17.9 - ACUTE KIDNEY FAILURE, UNSPECIFIED; N18.9 - CHRONIC KIDNEY DISEASE, UNSPECIFIED Status: Acute (2) Chronic respiratory failure Code(s): J96.10 - CHRONIC RESPIRATORY FAILURE, UNSP W HYPOXIA OR HYPERCAPNIA Status: Acute (3) Symptomatic bradycardia Code(s): R00.1 - BRADYCARDIA, UNSPECIFIED Status: Acute (4) Acute on chronic congestive heart failure Code(s): I50.9 - HEART FAILURE, UNSPECIFIED Status: Acute (5) Atrial fibrillation Code(s): I48.91 - UNSPECIFIED ATRIAL FIBRILLATION Status: Acute Qualifiers: Atrial fibrillation type: unspecified Qualified Code(s): I48.91 - Unspecified atrial fibrillation (6) Digoxin causing adverse effect in therapeutic use Code(s): T46.0X5A - ADVERSE EFFECT OF CARDI-STIM GLYCOS/DRUG SIMLAR ACT, INIT Status: Acute (7) Morbid obesity Code(s): E66.01 - MORBID (SEVERE) OBESITY DUE TO EXCESS CALORIES Status: Acute (8) Urinary retention due to benign prostatic hyperplasia Code(s): N40.1 - BENIGN PROSTATIC HYPERPLASIA WITH LOWER URINARY TRACT SYMP; R33.8 - OTHER RETENTION OF URINE Status: Acute (9) CAD (coronary artery disease) Code(s): I25.10 - ATHSCL HEART DISEASE OF [place] CORONARY ARTERY W/O ANG PCTRS Status: Chronic (10) MAY (obstructive sleep apnea) Code(s): G47.33 - OBSTRUCTIVE SLEEP APNEA (ADULT) (PEDIATRIC) Status: Suspected - Plan Plan: Patient is an 79 y/o male with a PMH of A-Fib who presents for evaluation of symptomatic Bradycardia, KOREY on CKD, Digoxin Toxicity. 1. Symptomatic Bradycardia, LBBB, resolved -Likely 2/2 Digoxin Toxicity and Hypokalemia, Metolazone use could have caused impaired Renal Clearance -Initially stable on Dopamine gtt @ 5, pulse 40-60s - DC'd -Repeat TTE unchanged from 09/2019 -Cardiology: Consulted and currently following, recs appreciated -Pulmonology: Consulted and currently following, recs appreciated -EP: Consulted and currently following, recs appreciated -s/p Pacemaker placement on 12/19 -s/p Heart Cath on 12/21 - 60-75% stenosis of LAD, 30-40% stenosis of RCA, EF: 60 -65% -Di.9 > 1.45 -Telemetry Floor readings show ventricular pacing w/ rate in the 70s 2. KOREY on CKD 3, resolved -Cr: 2.23 > 0.96 -Likely prerenal from CHF, volume depletion and bradycardia 3. Mild fluid Overload, resolved -Up 5L, Diuertics have been held due to low nml BPs on admission -s/p multiple doses of IV Lasix - will resume patient's PO regimen 4. Hypokalemia, resolved -Improving : 2.8 > 3.5 - likely 2/2 home Metolazone -Will continue to replace PO 5. Hx of Bladder CA, BPH -Urology: Consulted and currently following, recs appreciated -Will continue Flomax PO daily, per Urology -Will plan for TURBT on 01/02 - cleared by Cardiology and EP 6. HFrEF -Echo (09/21): EF 40-45% with Diastolic Dysfunction -Echo (12/19): 55-60% with Diastolic Dysfunction -Will continue to monitor I/Os and daily weights 7. Hypermangesemia, resolved -M.0 > 2.6 -May be contributing factor to #1, although bradycardia typically doesn't manifest until 4-5 mEq -See #3 8. Metabolic alkalosis -HCO3 38 (chronic), likely 2/2 combination of Metolazone use, volume depletion and hypokalemia -Also with chronic Respiratory Acidosis, could be metabolic compensation component 9. Indeterminate Troponin -Trops: 0.121 > 0.112 > 0.118 -Likely 2/2 to demand ischemia -Patient denies chest pain 10. HTN -Borderline BPs in the ED, started on Dopamine gtt @ 5mcg/min - DC'd due to rising pressures -See #3 11. Chronic Respiratory Failure 2/2 COPD -PRN Duonebs -Patient now has home CPAP 12. Hx of GI Hemorrhage -Will continue ASA but hold additional anticoagulation, per Cards recs Code status: Full VTE: SCDs Diet: HH w/ Low Na PCP: Dr. Samson Dispo: Patient is currently stable and admitted to the Telemetry Floor for ongoing treatment of symptomatic Bradycardia, likely a result of LBBB or residual effects of Digoxin Toxicity & Metolazone - both of which have both been held. s/p Pacemaker placement Day 2, Heart Cath Day 1. Will optimize medication regimen to control BP and improve respiratory status, with Keflex 250 mg PO TID ordered per EP recs. Cardiology, Pulmonology and EP on-board all signed off, will follow as outpatient for TURBT, Pacemaker wound check and likely stenting of LAD. Case Management consulted for HH - will likely DC today. Expected LOS < 24H. Addendum - Attending - Attending Attestation Date/Time: 12/23/19 0853 Discussed and Agree with Assessment and Plan with Dr. Avitia. 79 yo M with chronic afib here for symptomatic bradycardia, korey on ckd, digoxin toxicity. S/p pacemaker placement. Scheduled for TURP with Urology on 01/02, guadalupe to be removed before discharge. Tolerated CPAP overnight. Offered inpatient rehab, patient strongly preferred home with home health. Cath yesterday showed LAD stenosis but ok'd to proceed with surgery per Cardiology recs. Follow up with Cardiology for OAC management, ASA for now, then plan to restart OAC, after TURP and proceed with stent placement to LAD.
[2019-12-23] MEDS ORDERED: Furosemide 40 MG TAB PO SCH (07:30)
[2019-12-23] MEDS ORDERED: Polyethylene Glycol 3350 17 GM Packet PO SCH (07:45)
[2019-12-23] MEDS ORDERED: Senokot 8.6 MG TAB PO SCH (07:45)
[2019-12-23 08:30] VITALS: TEMP 97.4
[2019-12-23] MEDS: Potassium Chloride 20 MEQ TAB PO SCH (09:07)
[2019-12-23] MEDS: Carvedilol 6.25 MG TAB PO SCH (09:07)
[2019-12-23] MEDS: Amlodipine 5 MG TAB PO SCH (09:09)
[2019-12-23] MEDS: Tamsulosin HCl 0.4 MG CAP PO SCH (09:09)
[2019-12-23] MEDS: Aspirin Chewable 81 MG TAB PO SCH (09:09)
[2019-12-23] MEDS: Polyethylene Glycol 3350 17 GM Packet PO SCH (09:10)
[2019-12-23] MEDS: Docusate 100 MG CAP PO SCH (09:12)
[2019-12-23] MEDS: Cephalexin 250 MG CAP PO SCH ×2 (10:34→15:44)
[2019-12-23 11:57] VITALS: BP 135/72
--- NOTE | 2019-12-23 12:36 | PDOC.EVN ---
Event Note - Event Note Event Note: Patient's daughter was contacted by the Resident Medicine Department Store Manager at approximately 1230 on 12/23/19 to discuss the patient's pending discharge. From a medical standpoint, the patient was cleared to return home with modifications to his medication regimen as listed in his discharge packet per input from Cardiology, EP and Urology. However, the patient's referral for Home Health was not sent until 1630 on 12/22/19 and as such there may be a delay with being approved for Home Health based on insurance and decreased workflow due to the current COVID-19 pandemic. Both the patient and the daughter were aware of the need for Home Health in order to assist with PT/OT and ensure adequate compliance and monitoring in light of the the patient's new medication regimen and were in agreement with receiving Home Health instead of In-Patient Rehab, even if there may be a slight delay in approval. As a result, the patient's daughter was given strict return instructions if the patient were to develop chest pain, worsening shortness of breath, did not adhere to a fluid restricted diet or began to gain weight, or experienced severe urinary retention, fevers, chills or other urologic complications. The patient's daughter expressed understanding of the plan and was in agreement.
--- NOTE | 2019-12-23 12:47 | PRG ---
DATE OF SERVICE: 12/23/2019 SUBJECTIVE: Quintin Rodgers says he is doing well. His vital signs have been stable, now that he is paced. He has had no shortness of breath. Lungs, heart, abdomen, are unchanged. He has no lower extremity edema to speak up. He is wearing his nocturnal ventilation. IMPRESSION: 1. Obesity hypoventilation on adaptive Servo ventilation at home, doing well. 2. Status post pacemaker for bradycardia, clinically stable. 3. History of heart failure and fluid retention, clinically stable. He will keep his appointment with me. He is tentatively on the schedule for a procedure with Dr. Cruz. There is no pulmonary reason that would lead me to believe that he has prohibitive risk for the surgery . Job ID: [id number]
--- NOTE | 2019-12-23 13:15 | PDOC.CPN ---
- Subjective Date: 12/23/19 Time: 10:30 Interval history: Overall doing well. No complaints. Wants to go home. - Review of Systems Respiratory: reports: cough, congestion Cardiovascular: reports: edema Gastrointestinal: denies: nausea, vomiting, diarrhea, constipation, abd pain, GI bleeding Musculoskeletal: denies: pain, tenderness, stiffness, swelling, arthritis/ arthralgias Neurological: denies: numbness, syncope, seizure, weakness - Objective Allergies/Adverse Reactions: Allergies Allergy/AdvReac Type Severity Reaction Status Date / Time No Known Drug Allergies Allergy Verified 08/03/18 08:42 Visit Medications: Current Medications Acetaminophen/Codeine Phosphate (Tylenol #3) 1 tab PO Q4H PRN PRN Reason: Mild Pain (1-3) Acetaminophen/Codeine Phosphate (Tylenol #3) 2 tab PO Q4H PRN PRN Reason: Moderate Pain (4-6) Albuterol/Ipratropium (Duoneb) 3 ml NEB TID-RT PRN PRN Reason: Wheezing Amlodipine Besylate (Norvasc) [address] [facility] Last Admin: 12/23/19 09:09 Dose: 5 mg Aspirin (A[facility]in Chewable) [facility] [place] Last Admin: 12/23/19 09:09 Dose: 81 mg Benzonatate (Tessalon) 100 mg PO Q4H PRN PRN Reason: Cough Last Admin: 12/21/19 12:10 Dose: 100 mg Carvedilol (Coreg) 6.25 mg PO BID-[facility] Last Admin: 12/23/19 09:07 Dose: 6.25 mg Cephalexin (Keflex) [address] [facility] Stop: 12/28/19 09:01 Last Admin: 12/23/19 10:34 Dose: 250 mg Docusate Sodium (Colace) [address] [facility] Last Admin: 12/23/19 09:12 Dose: Not Given Furosemide (Lasix) 40 mg PO DAILY-[facility] Last Admin: 12/23/19 09:06 Dose: 40 mg Nitroglycerin (Nitrostat) 0.4 mg SL Q5MIN PRN PRN Reason: Chest Pain Polyethylene Glycol (Miralax) [address] [facility] Last Admin: 12/23/19 09:10 Dose: Not Given Potassium Chloride (K-Dur) 20 meq PO QAM-[facility] Last Admin: 12/23/19 09:07 Dose: 20 meq Sodium Chloride (Flush - Normal Saline) 10 ml IVF PRN PRN PRN Reason: Saline Flush Tamsulosin HCl (Flomax) 0.[address] [facility] Last Admin: 12/23/19 09:09 Dose: 0.4 mg Vital Signs & Weight: Vital Signs Temp Pulse Resp BP Pulse Ox 12/23/19 11:10 97.4 F L 70 18 135/72 98 12/23/19 08:45 99 12/23/19 07:30 97.4 F L 70 18 143/73 H 99 12/23/19 03:06 97.1 F L 69 20 137/64 93 L 12/23/19 01:55 94 L Weight 276 lb - Quality Measures Condition: Atrial Fibrillation/Flutter (hx or current) - Medication Contraindications No Anticoagulant reason: Medical contraindication (hx GIB) - Physical Exam General: alert & oriented x3, appears well HEENT: mucus membranes moist Neck: supple neck Cardiac: regular rate and rhythm Lungs: no wheezes, scattered rhonchi Neuro: grossly intact Abdomen: soft Extremities: 1+ LE edema Skin: clear Musculoskeletal: no pain - Labs Result Diagrams: 12/23/19 04:14 12/23/19 04:14 Troponin/CKMB CK-MB (CK-2) 2.4 ng/mL (0-6.6) 12/17/19 20:03 Troponin I 0.118 ng/mL (< 0.028) H 12/17/19 20:03 - Assessment/Plan Assessment/Plan: 1. Symptomatic Bradycardia secondary to Dig toxicity- s/p BiV PM placement 12/19 2. MALCOLM/CKD 3. Persistent AF - currently on ASA only. Plan for this until urologic surgery, then will change to Eliquis per GJM and consider cardioversion afterwards. 4. Chronic combined HF 7. CAD - needs LAD intervened on post bladder surgery. 8. Sleep apnea with Cpap at HS 9. anemia - see notes on ACT above. May be candidate for watchman in the future. Stable. Plan for discharge today. Will f/u post-operatively with Dr. Harrison to discuss PCI.
--- NOTE | 2019-12-23 23:20 | DIS ---
DATE OF ADMISSION: 12/17/2019 DATE OF DISCHARGE: 12/23/2019 RESIDENT: Refugio Avitia MD ADMITTING ATTENDING: Geremias Ahumada MD DISCHARGE ATTENDING: Scott Du MD CONSULTS: 1. Dr. Mane Duffy, Cardiology. 2. Dr. Barrie Damon, Pulmonology. 3. Dr. Ernst Bee, Pulmonology. 4. Vidya Ramos, SAUSAGE SMOKER, Cardiology. 5. Dr. Maura Cruz, Urology. 6. Dr. Magaly Harrison, Cardiology. 7. Dr. Wilfredo Cochran, Electrophysiology. 8. Dr. Ulysses Sandoval, Pulmonology. PROCEDURES: Chest x-ray revealing persistent patchy density right lung base with elevation of right hemidiaphragm. Findings may be related to chronic area of atelectasis and pneumonitis could not be entirely excluded. Echocardiogram demonstrating an ejection fraction of 55% to 60% with restrictive filling pattern indicating diastolic dysfunction. SPECIAL MACHINE STITCHER pacemaker placement, heart catheterization revealing left anterior descending artery stenosis between 60% to 75% as well as stenosis of the right coronary artery. PRIMARY DIAGNOSES: 1. Symptomatic bradycardia with new onset left bundle branch block. 2. Digoxin toxicity. 3. Hypokalemia. 4. Hypermagnesemia. 5. Acute kidney [id number] kidney disease stage 3. 6. Mild fluid overload. 7. History of bladder cancer. 8. Benign prostatic hypertrophy with urinary retention. 9. Heart failure with reduced ejection fraction. 10. Metabolic alkalosis. 11. Elevated troponin levels. 12. Hypertension. 13. Chronic obstructive pulmonary disease. 14. Obstructive sleep apnea. 15. History of gastrointestinal hemorrhage. DISCHARGE MEDICATIONS: 1. Cephalexin 250 mg p.o. t.i.d. for 7 days. 2. Furosemide 40 mg p.o. daily. 3. Potassium chloride 20 mEq p.o. daily. DISCONTINUED MEDICATIONS: 1. Amlodipine 5 mg p.o. daily. 2. Aspirin 81 mg p.o. daily. 3. Benzonatate 100 mg p.o. q.4 hours p.r.n. 4. Carvedilol 6.25 mg p.o. b.i.d. 5. Cephalexin 250 mg p.o. t.i.d. 6. Docusate 100 mg p.o. b.i.d. 7. Furosemide 40 mg p.o. daily. 8. Nitroglycerin sublingual 0.4 mg q.5 minutes p.r.n. 9. Polyethylene glycol 17 g p.o. daily. 10. Potassium chloride 20 mEq p.o. daily. 11. Senokot 2 tabs p.o. daily. 12. Tamsulosin 0.4 mg p.o. daily. HISTORY OF PRESENT ILLNESS AND HOSPITAL COURSE: The patient is an 79-year-old male with a past medical history significant for heart failure with reduced ejection fraction, chronic kidney disease stage 3, who presents to the emergency department complaining of a syncopal episode. The patient stated that last week he saw his dry room attendant, Dr. Harrison, who had a stress test performed. He said that they were considering a heart catheterization procedure in the future and brought up the likelihood of the patient requiring a pacemaker at some point in the future. The patient stated that he had recently been having problems with slow heartbeat for the past few days. He was feeling more weak and short of breath. He is on 2 L of oxygen via nasal cannula at home at baseline. He utilizes CPAP intermittently throughout the day as needed. However, today when he was getting up from his chair with the assistance of 2 of his family members, he suddenly lost all strength and fell to the ground, losing consciousness. The fall was witnessed by the accompanied family members and the patient did not strike his head and he was quick to arouse. He was transferred via EMS with noted bradycardia, administered atropine en route. The patient denied chest pain, worsening edema, recent illness. He did note worsening orthopnea and shortness of breath. In the emergency department patient was given 324 mg p.o. aspirin, 40 mEq potassium chloride, 1 mg of atropine and started on a dopamine drip. The patient was subsequently stabilized and transferred to the telemetry unit. He was evaluated by the dry room attendant as noted above as well as estate planning paralegal as noted above. He said he subsequently had a pacemaker placed on 12/21/2019 that was successful resultant in ventricular paced rhythm with a heart rate of approximately 69 to 70 beats per minute. Additionally, the patient received a heart catheterization on 12/22/2019 with the results listed above and was subsequently prepped for discharge as his electrolyte abnormalities were resolved. He was euvolemic and his respiratory status had increased greatly. Prior to discharge, the patient's vital signs were recorded as temperature 97.4, pulse 70 beats per minute, respirations 18 per minute, oxygen saturation 98% on 2 L nasal cannula, blood pressure 135/72, weight was recorded as 125 kg, down 5 kg from admission. LABORATORY DATA: Revealed a white blood cell count of 10.4, hemoglobin 11, hematocrit 38.4, platelet count 145. Chem panel revealed a sodium of 134, potassium 3.5, chloride 87, carbon dioxide 37, BUN 22, creatinine 0.96, glucose 104, calcium 8.4, phosphorus 2.5, magnesium 2.6, down from a peak of 3 on admission. Total bilirubin 3.7, direct bilirubin 1.3, AST 29, ALT 26, alkaline phosphatase 100, creatine kinase 103, troponin 0.118 down from initial value of 0.121 on admission. Digoxin levels 1.48 down from a level of 2.9 on admission. DISPOSITION: Stable. DISCHARGE INSTRUCTIONS: 1. Location: Home. 2. Diet: Heart healthy with low sodium and fluid restriction of no more than 1.8 L per day. 3. Activity: No restrictions, although the patient will be discharged home with physical therapy and occupational therapy via home health services recommendations appreciated. 4. Followup: The patient was encouraged to follow up with his dry room attendant Dr. Magaly Harrison in approximately 14 days. Additionally, the patient was encouraged to follow up with his urologist, Dr. Maura Cruz in approximately 2-3 weeks. He was also encouraged to follow up with his estate planning paralegal, Dr. Wilfredo Cochran in 14 days. Additionally, the patient was registered for outpatient cardiac rehab and was encouraged to follow up with his primary care provider in approximately 7 days. Overall, the patient's condition is stable. However, he does have a planned urologic procedure on January 02 and will likely have a cardiac cath with stent placement thereafter based on the patient's ability to tolerate the procedure as well as the patient's overall bleeding risk as he had previously been on Xarelto at home. Lastly, the patient was encouraged to remain home-bound based on his advanced age, multiple comorbidities, and ongoing COVID-19 pandemic. Job ID: [id number] [facility]
== END 2019-12-23 15:50 | disposition home health service (06) | DRG 242 ==
LOC: ERS 13:01 → CCU 14:36 → 2NO 12-18 10:14
PROVIDERS: ADMIT Student in an Organized Health Care Education/Training Program; ATTEND Student in an Organized Health Care Education/Training Program
PROC: 0JH606Z Insertion of Pacemaker, Dual Chamber into Chest Subcutaneous Tissue and Fascia, Open Approach (ICD-10-PCS; principal; 2019-12-20)
PROC: 02H63JZ Insertion of Pacemaker Lead into Right Atrium, Percutaneous Approach (ICD-10-PCS; 2019-12-20)
PROC: 02HK3JZ Insertion of Pacemaker Lead into Right Ventricle, Percutaneous Approach (ICD-10-PCS; 2019-12-20)
PROC: 02HL3JZ Insertion of Pacemaker Lead into Left Ventricle, Percutaneous Approach (ICD-10-PCS; 2019-12-20)
PROC: 4A023N7 Measurement of Cardiac Sampling and Pressure, Left Heart, Percutaneous Approach (ICD-10-PCS; 2019-12-20)
PROC: B2111ZZ Fluoroscopy of Multiple Coronary Arteries using Low Osmolar Contrast (ICD-10-PCS; 2019-12-20)
PROC: B2151ZZ Fluoroscopy of Left Heart using Low Osmolar Contrast (ICD-10-PCS; 2019-12-20)
DX: R00.1 Bradycardia, unspecified (principal); I50.43 Acute on chronic combined systolic (congestive) and diastolic (congestive) heart failure; N17.9 Acute kidney failure, unspecified; E87.3 Alkalosis; I13.0 Hypertensive heart and chronic kidney disease with heart failure and stage 1 through stage 4 chronic kidney disease, or unspecified chronic kidney disease; J96.10 Chronic respiratory failure, unspecified whether with hypoxia or hypercapnia; E66.2 Morbid (severe) obesity with alveolar hypoventilation; T46.0X5A Adverse effect of cardiac-stimulant glycosides and drugs of similar action, initial encounter; E87.6 Hypokalemia; E83.41 Hypermagnesemia; N18.3 Chronic kidney disease, stage 3 (moderate); I44.7 Left bundle-branch block, unspecified; N40.1 Benign prostatic hyperplasia with lower urinary tract symptoms; R33.8 Other retention of urine; J44.9 Chronic obstructive pulmonary disease, unspecified; D63.1 Anemia in chronic kidney disease; F32.9 Major depressive disorder, single episode, unspecified; I49.5 Sick sinus syndrome; I45.3 Trifascicular block; I73.9 Peripheral vascular disease, unspecified; I48.19 Other persistent atrial fibrillation; Z96.651 Presence of right artificial knee joint; R79.89 Other specified abnormal findings of blood chemistry; Z79.82 Long term (current) use of aspirin; Z79.899 Other long term (current) drug therapy; Z87.891 Personal history of nicotine dependence; Z68.37 Body mass index [BMI] 37.0-37.9, adult
CPT/HCPCS: 33207; 36415; 51701; 51798; 71045; 76942; 80048; 80053; 80162; 82248; 82550; 82553; 83735; 84100; 84484; 85025; 93005; 93010; 93306; 93458; 94760; 96361; 96365; 96375; 99215; C1769; C1882; C1898; C1900; G0463; J0461; J0690; J1265; J1580; J1644; J1940; J2250; J2704; J3010; J3480; J7050; Q9967

== ENCOUNTER 2019-12-29 06:34 | Outpatient (CLI) | payer MEDICARE, OTHER ==
[2019-12-29 16:59] LABS: Hemoglobin 13.3 g/dL (14.0-18.0); Mean Corpuscular HGB CONC 29.4 g/dL (32.0-36.0); Mean Corpuscular Hemoglobin 24.2 pg (27.0-31.0); Mean Corpuscular Volume 82.4 fL (78.0-98.0); Platelet Count 200 thou/uL (130-400); RBC Distribution Width 18.6 % (11.5-14.5); Red Blood Cell (RBC) Count 5.48 mill/uL (4.70-6.10); White Blood Cell (WBC) Count 10.3 thou/uL (4.8-10.8)
[2019-12-29 17:00] LABS: Prothrombin Time 13.5 sec (12.0-14.7)
[2019-12-29 17:01] LABS: PTT 31.2 sec (22.9-36.1)
[2019-12-29 17:16] LABS: BUN (Urea Nitrogen) 67 mg/dL (8.4-25.7); Calc. Creatinine Clearance 0 mL/min (70-130); Estimated GFR-MDRD 31; Glucose 117 mg/dL (83-110)
[2019-12-29 17:32] LABS: Chloride 78 mmol/L (98-107); Sodium 134 mmol/L (136-145)
[2019-12-29 17:42] LABS: Carbon Dioxide 36 mmol/L (23-31)
[2019-12-29 18:04] LABS: Potassium 2.6 mmol/L (3.5-5.1)
[2019-12-29 18:36] LABS: Anion Gap 23 mmol/L (10-20)
[2019-12-30 17:26] LABS: SARS-CoV-2 MS2 Positive; SARS-CoV-2 N Gene Negative; SARS-CoV-2 S Gene Negative; SARS-CoV-2 orf1ab Negative
== END 2019-12-29 06:35 | disposition home or self-care (01) ==
LOC: LABBT 06:34
PROVIDERS: ATTEND Urology
DX: Z01.818 Encounter for other preprocedural examination (principal); Z11.59 Encounter for screening for other viral diseases; C67.2 Malignant neoplasm of lateral wall of bladder; N35.911 Unspecified urethral stricture, male, meatal; N36.5 Urethral false passage; N40.0 Benign prostatic hyperplasia without lower urinary tract symptoms; R33.9 Retention of urine, unspecified; I50.33 Acute on chronic diastolic (congestive) heart failure; Z87.898 Personal history of other specified conditions
CPT/HCPCS: 80048; 85027; 85610; 85730; 86850; 86900; 86901; 93005; U0003; 87635; 93010

== ENCOUNTER 2020-01-03 05:52 | Day surgery (SDC) | payer MEDICARE, OTHER ==
[2020-01-02 09:57] VITALS: BMI 37.3
[2020-01-03] MEDS ORDERED: Fentanyl 100 MCG/2 ML VIAL ONE ×3 (06:43→08:30)
[2020-01-03] MEDS ORDERED: Levofloxacin 500 mg/D5W 100 ml Premix Bag ONE (06:56)
[2020-01-03 07:04] LABS: BUN (Urea Nitrogen) 85 mg/dL (8.4-25.7); Calc. Creatinine Clearance 49 mL/min (70-130); Calcium 10.1 mg/dL (7.8-10.44); Estimated GFR-MDRD 30; Glucose 132 mg/dL (83-110)
[2020-01-03 07:20] LABS: Chloride 73 mmol/L (98-107)
[2020-01-03 07:21] LABS: Potassium 2.4 mmol/L (3.5-5.1); Sodium 132 mmol/L (136-145)
[2020-01-03 07:26] LABS: Anion Gap 26 mmol/L (10-20); Carbon Dioxide 36 mmol/L (23-31)
[2020-01-03] MEDS ORDERED: SUGAMMADEX SODIUM 200 MG/2 ML VIAL ONE (08:06)
[2020-01-03] MEDS ORDERED: Phenazopyridine HCl 97.5 MG TABLET ONE (08:38)
[2020-01-03] MEDS ORDERED: Oxybutynin 5 MG TAB ONE (08:38)
[2020-01-03] MEDS ORDERED: HYDROcodone/Acetaminophen 5/325 mg Tablet ONE (10:06)
--- NOTE | 2020-01-03 11:24 | OP ---
DATE OF PROCEDURE: 01/03/2020 PRIMARY CARE PHYSICIAN: Jaun Samson MD SENIOR EDITOR: Magaly Harrison MD PREOPERATIVE DIAGNOSES: 1. 79-year-old male with history of bladder cancer, superficial low-grade, initially diagnosed in December 2017. 2. Recent cytology positive. 3. History of intermittent urinary retention. 4. History of nonobstructing urethral stricture. 5. History of bilobar hyperplasia of the prostate, mild. POSTOPERATIVE DIAGNOSES: 1. 79-year-old male with history of bladder cancer, superficial low-grade, initially diagnosed in December 2017. 2. Recent cytology positive. 3. History of intermittent urinary retention. 4. History of nonobstructing urethral stricture. 5. History of bilobar hyperplasia of the prostate, mild. PROCEDURES PERFORMED: Cystoscopy, random bladder biopsy, cytology, fulguration of biopsy site, 18-[place] 30 mL three-way Noel catheter placement to gravity drainage. ANESTHESIA: General. COMPLICATIONS: None apparent. IV FLUIDS: 500 mL. SPECIMENS: Bladder biopsy x3, random left lateral wall, mid posterior right lateral wall. ESTIMATED BLOOD LOSS: Minimal. INTRAOPERATIVE FINDINGS: 1. Intermittent areas of urethral narrowing, however, nonobstructing, a 21- [place] and a 26-[place]izen [place] resectoscope passed atraumatically. 2. Bilobar hyperplasia, minimally obstructing. 3. Bladder with intermittent trabeculation, today cystoscopy demonstrates no gross lesion of concern. No bladder stones. INDICATIONS FOR PROCEDURE AND HISTORY: Mr. Rodgers is an 79-year-old male with history of morbid obesity, severe COPD, atrial fibrillation, previously on Eliquis, which was discontinued due to recurrent GI bleed, history of CHF. The patient presents today for cystoscopy, TURBT, bladder biopsy. He was not due for his routine surveillance cystoscopy; however, due to intermittent retention, we did perform a cystoscopy in November 2019 demonstrating intermittent areas of bullous edema as he had an indwelling Noel catheter placement. No gross lesions were seen. However, cytology positive. Therefore, he presents today for cysto\random bladder biopsy. His previous CT demonstrated no evidence of upper tract disease dated September 2017. Indications for the procedure reviewed and risks and complications including, but not limited to: Bleeding, pain, infection, injury to adjacent organs, ureteral or bladder injury, sepsis, cardiopulmonary morbidity and mortality was reviewed with him in detail. He has been cleared by Cardiology and Pulmonology to proceed. DESCRIPTION OF PROCEDURE: After an informed consent was signed, the patient was taken to the operating room, placed in a dorsal lithotomy position with the genital area prepped and draped in the usual surgical sterile fashion. A 21-[place] cystoscope was utilized and passed without difficulty. At the level of the proximal penile bulbar urethra, he does have intermittent areas of urethral stricture, and the pendulous urethra was somewhat tortuous. However, I was able to pass the cystoscope atraumatically to the level of the prostatic urethra, which demonstrated minimally bilobar hyperplasia of prostate, not significantly obstructing with high median bar. The bladder was entered, which demonstrated clear urine. There were intermittent areas of trabeculation, no bladder tumors were seen on today's exam , nor bullous edema as he had no indwelling Noel catheter previously. The UOs were identified well away from the bladder neck. Previous resection of bladder tumor site was noted in the left lateral wall. Cystoscopy was performed with a 30 and a 70-degree lens, which failed to demonstrate any lesion of concern warranting a TURBT. Clear efflux from bilateral ureters was noted. Due to positive cytology , I did obtain a random bladder biopsy, including left lateral wall, which was near the vicinity of his previous TURBT site left lateral wall, mid posterior and right lateral wall. At this time, we transitioned to a Gyrus resectoscope 26-Citizen [place] sheath, which passed without difficulty with a visual obturator. We fulgurated the biopsy site and he tolerated the procedure well. An 18-[place] three-way Noel catheter was placed with ease, 30 mL insufflated and CBI port was plugged. Catheter attached to leg bag, gravity bag. He tolerated the procedure well with minimal blood loss and transported to the recovery room in stable condition. I did contact his welder fitter, Dr. Harrison, as he has preoperative hypokalemia. He has been on aggressive diuretics including Bumex 1 mg one p.o. daily, furosemide 40 mg one p.o. daily, and Zaroxolyn 5 mg every day. After conferencing with Dr. Harrison, I will relate her recommendations to the patient: Discontinue Bumex, change Zaroxolyn to every other day, continue Lasix. patient to call Dr. Harrison in the near future to reassess his volume status as well as his hypokalemia. patient has been cleared by Cardiology to discharge. He is status post pacemaker and tolerated the procedure uneventfully. Job ID: [id number] [facility]
[2020-01-03] MEDS ORDERED: Dexamethasone 20 MG/5 ML VIAL ONE (11:34)
[2020-01-03] MEDS ORDERED: Ondansetron PF 4 MG/2 ML Vial ONE (11:34)
[2020-01-03] MEDS ORDERED: Lidocaine 1% PF 5 ML VIAL ONE (11:34)
[2020-01-03] MEDS ORDERED: PHENYLEPHRINE-NS 100 MCG/ML 10 ML SYRINGE ONE (11:34)
[2020-01-03] MEDS ORDERED: PROPOFOL 200 MG/20 ML VIAL ONE (11:34)
[2020-01-03] MEDS ORDERED: Rocuronium Bromide 10 MG/ML (10ML VIAL) ONE (11:34)
== END 2020-01-03 10:45 | disposition home or self-care (01) ==
LOC: SDC 05:52
PROVIDERS: ATTEND Urology
PROC: 0TBB8ZX Excision of Bladder, Via Natural or Artificial Opening Endoscopic, Diagnostic (ICD-10-PCS; principal; 2020-01-03)
DX: N30.20 Other chronic cystitis without hematuria (principal); N35.912 Unspecified bulbous urethral stricture, male; N40.1 Benign prostatic hyperplasia with lower urinary tract symptoms; N13.8 Other obstructive and reflux uropathy; R33.8 Other retention of urine; N32.89 Other specified disorders of bladder; C67.2 Malignant neoplasm of lateral wall of bladder; J44.9 Chronic obstructive pulmonary disease, unspecified; I48.91 Unspecified atrial fibrillation; I12.9 Hypertensive chronic kidney disease with stage 1 through stage 4 chronic kidney disease, or unspecified chronic kidney disease; I13.0 Hypertensive heart and chronic kidney disease with heart failure and stage 1 through stage 4 chronic kidney disease, or unspecified chronic kidney disease; N18.9 Chronic kidney disease, unspecified; I50.33 Acute on chronic diastolic (congestive) heart failure; G47.33 Obstructive sleep apnea (adult) (pediatric); N36.5 Urethral false passage; E66.01 Morbid (severe) obesity due to excess calories; Z68.37 Body mass index [BMI] 37.0-37.9, adult; Z87.891 Personal history of nicotine dependence; Z79.51 Long term (current) use of inhaled steroids; Z79.82 Long term (current) use of aspirin; Z79.899 Other long term (current) drug therapy
CPT/HCPCS: 36415; 80048; 88121; 88305; J1100; J1956; J2001; J2405; J2704; J3010

== ENCOUNTER 2020-04-12 15:27 | Emergency (ER) | payer MEDICARE, OTHER ==
[2020-04-12 16:44] LABS: Bilirubin Negative (Negative); Blood, Urine Negative (Negative); Clarity Clear (Clear); Glucose, Urine (Dipstick) Normal (Negative); Ketone, Urine Negative (Negative); Leukocyte Negative Leu/uL (Negative); Nitrite Negative (Negative); Protein, Urine (Dipstick) Negative (Neg-Trace); Urobilinogen Normal mg/dL (Less than 2)
--- NOTE | 2020-04-12 16:44 | RAD ---
Chest one view HISTORY: Dyspnea. COMPARISON: 12/21/2019. FINDINGS: Cardiac silhouette is magnified, enlarged, and partially obscured by an elevated right vanessa diaphragm. Atelectasis at the right base is greater than on the prior study. Pulmonary vasculature remains upper limits of normal. Mediastinum is midline with a multi lead left subclavian cardiac electronic device. No evidence of pneumothorax. IMPRESSION : Interval increase in atelectasis at the right lung base, adjacent to a chronically elevated right hem idiaphragm. Cardiomegaly and borderline pulmonary vascular congestion appear stable.
[2020-04-12 17:01] LABS: ALT (SGPT) 14 U/L (8-55); AST (SGOT) 19 U/L (5-34); Albumin 3.9 g/dL (3.4-4.8); Alkaline Phosphatase 96 U/L (40-110); Anion Gap 15 mmol/L (10-20); BUN (Urea Nitrogen) 31 mg/dL (8.4-25.7); Bilirubin, Total 1.7 mg/dL (0.2-1.2); Calc. Creatinine Clearance 0 mL/min (70-130); Calcium 8.5 mg/dL (7.8-10.44); Carbon Dioxide 29 mmol/L (23-31); Chloride 99 mmol/L (98-107); Estimated GFR-MDRD 45; Globulin 2.9 g/dL (2.4-3.5); Glucose 107 mg/dL (83-110); Potassium 4.1 mmol/L (3.5-5.1); Protein, Total 6.8 g/dL (5.8-8.1); Sodium 139 mmol/L (136-145)
[2020-04-12 17:02] LABS: #Eosinphils 0.2 thou/uL (0.0-0.7); #Lymphocytes 1.3 thou/uL (1.20-3.40); #Monocytes 0.8 thou/uL (0.11-0.59); #Neutrophils 4.9 thou/uL (1.40-6.50); %Basophils 0.1 % (0.0-1.0); %Eosinophils 2.3 % (0.0-10.0); %Lymphocytes 17.9 % (21.0-51.0); %Monocytes 11.2 % (0.0-10.0); %Neutrophils 68.5 % (42.0-75.0); Hemoglobin 7.5 g/dL (14.0-18.0); Mean Corpuscular Hemoglobin 22.6 pg (27.0-31.0); Mean Corpuscular Volume 77.9 fL (78.0-98.0); Mean Platelet Volume 9.5 fL (7.4-10.4); Platelet Count 157 thou/uL (130-400); RBC Distribution Width 18.1 % (11.5-14.5); Red Blood Cell (RBC) Count 3.34 mill/uL (4.70-6.10); White Blood Cell (WBC) Count 7.2 thou/uL (4.8-10.8)
[2020-04-12] MEDS ORDERED: Furosemide 40 MG/4 ML VIAL ONE (17:10)
[2020-04-12 18:02] LABS: Anisocytosis SLIGHT = 6-15 cells (100X) (0-5/hpf); Hypochromia MODERATE=16-30 cells (100X) (0-5/hpf); MDiff Complete? YES; Microcytosis SLIGHT = 6-15 cells (100X) (0-5/hpf); Platelet Morphology Comment Appears Adequate; Polychromasia MODERATE = 3-4 cells (100X) (0-2/hpf); Reflex for Review?? NO
== END 2020-04-12 18:37 | disposition left against medical advice (07) ==
LOC: ERS 15:27
DX: I11.0 Hypertensive heart disease with heart failure (principal); I50.9 Heart failure, unspecified; R09.02 Hypoxemia; E87.70 Fluid overload, unspecified; J44.9 Chronic obstructive pulmonary disease, unspecified; I48.91 Unspecified atrial fibrillation; Z87.891 Personal history of nicotine dependence
CPT/HCPCS: 36415; 71045; 80053; 81003; 83880; 84484; 85025; 93005; J1940

== ENCOUNTER 2021-01-08 09:51 | Outpatient (CLI) | payer MEDICARE, OTHER | END 2021-01-08 09:52 | disposition home or self-care (01) | LOC: BICRAD 09:51 | PROVIDERS: ATTEND Internal Medicine Critical Care Medicine | DX: R06.00 Dyspnea, unspecified (principal) | CPT/HCPCS: 71046 ==

== ENCOUNTER 2021-03-19 08:40 | Outpatient (CLI) | payer MEDICARE, OTHER ==
[2021-03-19 10:19] LABS: Hemoglobin 7.2 g/dL (13.5-17.5); Mean Corpuscular HGB CONC 27.6 g/dL (32.0-36.0); Mean Corpuscular Hemoglobin 24.9 pg (27.0-33.0); Mean Corpuscular Volume 90.3 fl (81.2-95.1); Mean Platelet Volume 10.1 fl (7.4-10.4); Platelet Count 152 10x3/uL (150-450); RBC Distribution Width 18.4 % (11.5-14.5); Red Blood Cell (RBC) Count 2.89 10x6/uL (4.32-5.72); White Blood Cell (WBC) Count 5.8 10x3/uL (3.5-10.5)
[2021-03-19 10:36] LABS: PTT 26.8 sec (22.0-33.0); Prothrombin Time 10.8 sec (9.5-12.1)
[2021-03-19 10:42] LABS: ALT (SGPT) 16 U/L (8-55); AST (SGOT) 13 U/L (5-34); Alkaline Phosphatase 70 U/L (40-110); Anion Gap 13 mmol/L (10-20); BUN (Urea Nitrogen) 23 mg/dL (8.4-25.7); Bilirubin, Total 1.5 mg/dL (0.2-1.2); Calc. Creatinine Clearance 0 mL/min (70-130); Calcium 9.2 mg/dL (7.8-10.44); Carbon Dioxide 35 mmol/L (23-31); Chloride 98 mmol/L (98-107); Globulin 2.5 g/dL (2.4-3.5); Glucose 100 mg/dL (83-110); Potassium 3.9 mmol/L (3.5-5.1); Protein, Total 6.5 g/dL (5.8-8.1); Sodium 142 mmol/L (136-145)
[2021-03-20 00:26] LABS: SARS-CoV-2 PCR by NAA Not Detected (NotDetected)
[2021-03-20 11:02] LABS: Ref Lab Test Ordered CYTOCHROME P450; Reference Lab Name LABCORP
[2021-03-20 11:48] LABS: Cardiolipin IgA Ab 6.1 APL-U/mL (<14 Negative)
[2021-03-20 11:49] LABS: Cardiolipin IgM Ab 8.3 MPL-U/mL (<10 Negative); EliA APS New Method **** NEW METHOD ****
== END 2021-03-19 08:41 | disposition home or self-care (01) ==
LOC: LABBT 08:40
PROVIDERS: ATTEND Internal Medicine Cardiovascular Disease
DX: Z01.818 Encounter for other preprocedural examination (principal); I48.19 Other persistent atrial fibrillation; K92.2 Gastrointestinal hemorrhage, unspecified; Z20.822 Contact with and (suspected) exposure to COVID-19
CPT/HCPCS: 80053; 85027; 85610; 85730; 86850; 86900; 86901; 86920; 93005; U0003; U0005; 86147; 93010

== ENCOUNTER 2021-07-02 08:19 | Inpatient (IN) | payer MEDICARE, OTHER ==
[2021-06-30 15:20] VITALS: BMI 38.3
[2021-07-02] MEDS ORDERED: Iopamidol 370 76% 100 ML VIAL ONE (09:20)
[2021-07-02 10:10] LABS: SARS-CoV-2 NAA Rapid Test Not Detected (NotDetected)
[2021-07-02] MEDS ORDERED: Heparin 10,000 UNITS/ 10 ML VIAL ONE (10:46)
[2021-07-02] MEDS ORDERED: Protamine Sulfate 50 MG/5 ML VIAL ONE (10:46)
[2021-07-02] MEDS ORDERED: Fentanyl 100 MCG/2 ML VIAL ONE (11:45)
[2021-07-02] MEDS ORDERED: PROPOFOL 200 MG/20 ML VIAL ONE (12:00)
[2021-07-02] MEDS ORDERED: Lidocaine 1% PF 5 ML VIAL ONE (12:00)
[2021-07-02] MEDS ORDERED: Dexamethasone 20 MG/5 ML VIAL ONE (12:00)
[2021-07-02] MEDS ORDERED: Glycopyrrolate 0.2 MG/ML 5 ML SYRINGE ONE (12:00)
[2021-07-02] MEDS ORDERED: Rocuronium Bromide 10 MG/ML (10ML VIAL) ONE (12:00)
[2021-07-02] MEDS ORDERED: Ondansetron PF 4 MG/2 ML Vial ONE (12:00)
[2021-07-02] MEDS ORDERED: CEFAZOLIN 1 GM VIAL ONE (13:28)
[2021-07-02] MEDS ORDERED: Melatonin 3 MG TAB PO PRN (18:08)
[2021-07-02] MEDS ORDERED: Acetaminophen/Codeine 30-300mg Tablet PO PRN ×2 (18:15)
[2021-07-02] MEDS ORDERED: Carvedilol 6.25 MG TAB PO SCH (18:15)
[2021-07-02] MEDS: Potassium Chloride 20 MEQ TAB PO SCH (20:33)
[2021-07-02] MEDS: Amlodipine 5 MG TAB PO SCH (20:34)
[2021-07-02] MEDS: Bumetanide 1 MG TAB PO SCH (20:34)
[2021-07-02] MEDS ORDERED: DULERA INH SCH (21:00)
[2021-07-02 22:52] LABS: INR-International Normal Ratio 1.7; INR-International Normal Ratio 1.8; Prothrombin Time 20.7 sec (12.0-14.7)
[2021-07-02 22:53] LABS: PTT 48.2 sec (22.9-36.1)
[2021-07-02] MEDS ORDERED: Warfarin Sodium 5 MG TAB PO SCH (23:30)
[2021-07-03 03:56] LABS: Troponin I 0.075 ng/mL (< 0.028)
[2021-07-03] MEDS ORDERED: Ketorolac Tromethamine 30 MG/ML VIAL IVP SCH (04:00)
[2021-07-03 05:44] LABS: Hemoglobin 12.7 g/dL (14.0-18.0); Platelet Count 95 thou/uL (130-400)
[2021-07-03 05:52] LABS: INR-International Normal Ratio 1.9; Prothrombin Time 21.7 sec (12.0-14.7)
[2021-07-03 06:12] LABS: Anion Gap 11 mmol/L (10-20); BUN (Urea Nitrogen) 19 mg/dL (8.4-25.7); Calc. Creatinine Clearance 107 mL/min (70-130); Carbon Dioxide 29 mmol/L (23-31); Chloride 102 mmol/L (98-107); Glucose 111 mg/dL (83-110); Potassium 4.3 mmol/L (3.5-5.1); Sodium 138 mmol/L (136-145)
[2021-07-03] MEDS ORDERED: Carvedilol 6.25 MG TAB PO SCH (08:00)
[2021-07-03] MEDS: Amlodipine 5 MG TAB PO SCH (08:30)
[2021-07-03] MEDS: Potassium Chloride 20 MEQ TAB PO SCH (08:30)
[2021-07-03] MEDS: Bumetanide 1 MG TAB PO SCH (08:31)
[2021-07-03] MEDS ORDERED: Tamsulosin HCl 0.4 MG CAP PO SCH (09:00)
[2021-07-03] MEDS ORDERED: Clopidogrel Bisulfate 75 MG TAB PO SCH (09:00)
[2021-07-03] MEDS ORDERED: FLU VACC QS2021-22(65YR UP)/PF 240 MCG/0.7 ML SYRINGE IM ONE (09:00)
[2021-07-03] MEDS ORDERED: Ipratropium Bromide 0.03% Nasal Inhaler 30 ml Bottle EA NARE SCH (09:00)
[2021-07-03] MEDS ORDERED: Multivit, Therapeutic 1 TAB PO SCH (09:00)
[2021-07-03 16:21] VITALS: BP 113/72; TEMP 98.1
[2021-07-03] MEDS ORDERED: Warfarin Sodium 5 MG TAB PO SCH (17:00)
== END 2021-07-03 16:48 | disposition home health service (06) | DRG 274 ==
LOC: SURG A 08:19 → 2SW 18:51
PROVIDERS: ADMIT Internal Medicine Cardiovascular Disease; ATTEND Internal Medicine Cardiovascular Disease
PROC: 02L73DK Occlusion of Left Atrial Appendage with Intraluminal Device, Percutaneous Approach (ICD-10-PCS; principal; 2021-07-02)
PROC: B24BZZ4 Ultrasonography of Heart with Aorta, Transesophageal (ICD-10-PCS; 2021-07-02)
DX: I48.19 Other persistent atrial fibrillation (principal); I50.22 Chronic systolic (congestive) heart failure; Z00.6 Encounter for examination for normal comparison and control in clinical research program; Z20.822 Contact with and (suspected) exposure to COVID-19; I25.10 Atherosclerotic heart disease of native coronary artery without angina pectoris; I11.0 Hypertensive heart disease with heart failure; G47.30 Sleep apnea, unspecified; D69.6 Thrombocytopenia, unspecified; J44.9 Chronic obstructive pulmonary disease, unspecified; Z95.0 Presence of cardiac pacemaker; Z99.81 Dependence on supplemental oxygen; Z87.891 Personal history of nicotine dependence; Z79.01 Long term (current) use of anticoagulants; Z79.51 Long term (current) use of inhaled steroids; Z79.899 Other long term (current) drug therapy; N40.0 Benign prostatic hyperplasia without lower urinary tract symptoms; Z85.51 Personal history of malignant neoplasm of bladder; M19.90 Unspecified osteoarthritis, unspecified site; Z95.5 Presence of coronary angioplasty implant and graft; Z79.02 Long term (current) use of antithrombotics/antiplatelets; E66.01 Morbid (severe) obesity due to excess calories; Z68.38 Body mass index [BMI] 38.0-38.9, adult
CPT/HCPCS: 33340; 36415; 80048; 84484; 85014; 85018; 85049; 85347; 85610; 85730; 86850; 86900; 86901; 93005; 93010; 93306; 93312; 93662; C1759; C1776; J0690; J1100; J1644; J1885; J2405; J2704; J2720; J3010; Q9967; U0002

== ENCOUNTER 2021-07-12 12:56 | Inpatient (IN) | payer MEDICARE, OTHER ==
[2021-07-12 13:28] LABS: #Eosinphils 0.1 thou/uL (0.0-0.7); #Lymphocytes 1.2 thou/uL (1.20-3.40); #Monocytes 0.7 thou/uL (0.11-0.59); #Neutrophils 6.1 thou/uL (1.40-6.50); %Eosinophils 1.2 % (0.0-10.0); %Lymphocytes 14.4 % (21.0-51.0); %Monocytes 9.1 % (0.0-10.0); %Neutrophils 75.3 % (42.0-75.0); Hemoglobin 8.4 g/dL (14.0-18.0); Mean Corpuscular HGB CONC 32.7 g/dL (32.0-36.0); Mean Corpuscular Hemoglobin 31.6 pg (27.0-31.0); Mean Corpuscular Volume 96.8 fL (78.0-98.0); Mean Platelet Volume 8.2 fL (7.4-10.4); Platelet Count 144 thou/uL (130-400); RBC Distribution Width 16.1 % (11.5-14.5); Red Blood Cell (RBC) Count 2.65 mill/uL (4.70-6.10); White Blood Cell (WBC) Count 8.1 thou/uL (4.8-10.8)
[2021-07-12 13:53] LABS: ALT (SGPT) 15 U/L (8-55); AST (SGOT) 17 U/L (5-34); Albumin 3.6 g/dL (3.4-4.8); Alkaline Phosphatase 68 U/L (40-110); Anion Gap 11 mmol/L (10-20); BUN (Urea Nitrogen) 38 mg/dL (8.4-25.7); Bilirubin, Total 0.8 mg/dL (0.2-1.2); Calc. Creatinine Clearance 0 mL/min (70-130); Calcium 8.9 mg/dL (7.8-10.44); Carbon Dioxide 35 mmol/L (23-31); Chloride 99 mmol/L (98-107); Globulin 2.8 g/dL (2.4-3.5); Glucose 101 mg/dL (83-110); Potassium 3.9 mmol/L (3.5-5.1); Protein, Total 6.4 g/dL (5.8-8.1); Sodium 141 mmol/L (136-145)
[2021-07-12 13:57] LABS: INR-International Normal Ratio 2.1; Prothrombin Time 23.8 sec (12.0-14.7)
[2021-07-12 13:58] LABS: PTT 56.1 sec (22.9-36.1)
[2021-07-12 16:46] LABS: Troponin I 0.011 ng/mL (< 0.028)
[2021-07-12] MEDS ORDERED: Acetaminophen 325 MG TAB PO PRN (17:00)
[2021-07-12 17:08] VITALS: BMI 38.9
[2021-07-12] MEDS ORDERED: Melatonin 3 MG TAB PO PRN (17:45)
[2021-07-12 18:00] LABS: Troponin I Less than 0.010 ng/mL (< 0.028)
[2021-07-12] MEDS ORDERED: Warfarin Sodium 5 MG TAB PO SCH (18:00)
[2021-07-12] MEDS ORDERED: Carvedilol 6.25 MG TAB PO SCH (18:30)
[2021-07-12] MEDS: Bumetanide 1 MG TAB PO SCH (20:44)
[2021-07-12] MEDS: Potassium Chloride 20 MEQ TAB PO SCH (20:45)
[2021-07-12] MEDS ORDERED: Amlodipine 5 MG TAB PO SCH (21:00)
[2021-07-12] MEDS ORDERED: MOMETASONE INH SCH (21:00)
[2021-07-12] MEDS ORDERED: Amlodipine 10 MG TAB PO SCH (21:00)
[2021-07-12] MEDS ORDERED: FORMOTEROL INH SCH (21:00)
[2021-07-13 05:37] LABS: #Eosinphils 0.1 thou/uL (0.0-0.7); #Monocytes 0.6 thou/uL (0.11-0.59); #Neutrophils 4.7 thou/uL (1.40-6.50); %Basophils 0.1 % (0.0-1.0); %Eosinophils 1.9 % (0.0-10.0); %Lymphocytes 15.7 % (21.0-51.0); %Monocytes 9.6 % (0.0-10.0); %Neutrophils 72.8 % (42.0-75.0); Hemoglobin 8.2 g/dL (14.0-18.0); Mean Corpuscular HGB CONC 32.4 g/dL (32.0-36.0); Mean Corpuscular Hemoglobin 31.5 pg (27.0-31.0); Mean Corpuscular Volume 97.3 fL (78.0-98.0); Mean Platelet Volume 8.2 fL (7.4-10.4); Platelet Count 127 thou/uL (130-400); RBC Distribution Width 15.8 % (11.5-14.5); Red Blood Cell (RBC) Count 2.61 mill/uL (4.70-6.10); White Blood Cell (WBC) Count 6.4 thou/uL (4.8-10.8)
[2021-07-13 05:45] LABS: INR-International Normal Ratio 2.3; Prothrombin Time 25.4 sec (12.0-14.7)
[2021-07-13 07:25] LABS: ALT (SGPT) 16 U/L (8-55); AST (SGOT) 26 U/L (5-34); Albumin 3.2 g/dL (3.4-4.8); Alkaline Phosphatase 64 U/L (40-110); Anion Gap 12 mmol/L (10-20); BUN (Urea Nitrogen) 30 mg/dL (8.4-25.7); Bilirubin, Total 1.1 mg/dL (0.2-1.2); Calc. Creatinine Clearance 109 mL/min (70-130); Calcium 8.5 mg/dL (7.8-10.44); Carbon Dioxide 31 mmol/L (23-31); Chloride 102 mmol/L (98-107); Globulin 2.9 g/dL (2.4-3.5); Glucose 112 mg/dL (83-110); Potassium 4.2 mmol/L (3.5-5.1); Protein, Total 6.1 g/dL (5.8-8.1); Sodium 141 mmol/L (136-145)
[2021-07-13] MEDS ORDERED: Carvedilol 6.25 MG TAB PO SCH (08:00)
[2021-07-13] MEDS: Carvedilol 6.25 MG TAB PO SCH ×2 (08:26→16:58)
[2021-07-13] MEDS: Amlodipine 5 MG TAB PO SCH ×2 (08:27→21:10)
[2021-07-13] MEDS: Potassium Chloride 20 MEQ TAB PO SCH ×2 (08:28→21:04)
[2021-07-13] MEDS: Multivitamin W/ Minerals 1 TAB PO SCH (08:28)
[2021-07-13] MEDS: Tamsulosin HCl 0.4 MG CAP PO SCH (08:28)
[2021-07-13] MEDS: Bumetanide 1 MG TAB PO SCH ×3 (08:37→21:04)
[2021-07-13] MEDS ORDERED: Ipratropium Bromide 0.03% Nasal Inhaler 30 ml Bottle EA NARE SCH ×2 (09:00→21:00)
[2021-07-13] MEDS ORDERED: Clopidogrel Bisulfate 75 MG TAB PO SCH ×2 (09:00)
[2021-07-13 10:21] LABS: Mean Corpuscular HGB CONC 32.4 g/dL (32.0-36.0); Mean Corpuscular Hemoglobin 31.9 pg (27.0-31.0); Mean Corpuscular Volume 98.2 fL (78.0-98.0); RBC Distribution Width 16.2 % (11.5-14.5); Red Blood Cell (RBC) Count 2.51 mill/uL (4.70-6.10)
[2021-07-13 11:18] LABS: Anisocytosis SLIGHT = 6-15 cells (100X) (0-5/hpf); Hypochromia SLIGHT = 6-15 cells (100X) (0-5/hpf); Lymphocytes 19 % (21-51); MDiff Complete? YES; Mean Platelet Volume 7.8 fL (7.4-10.4); Monocytes 2 % (0-10); Neutrophil 79 % (42-75); Platelet Count 117 thou/uL (130-400); Platelet Morphology Comment Appears Decreased; Polychromasia SLIGHT = 2-3 cells (100X) (0-2/hpf); White Blood Cell (WBC) Count 6.2 thou/uL (4.8-10.8)
[2021-07-13 16:42] LABS: SARS-CoV-2 PCR by NAA Not Detected (NotDetected)
[2021-07-13] MEDS ORDERED: Warfarin Sodium 5 MG TAB PO SCH ×2 (17:00)
[2021-07-13 21:38] LABS: Platelet Count 131 thou/uL (130-400)
[2021-07-13] MEDS ORDERED: Docusate Calcium (SURFAK) 240 MG CAP PO PRN (22:18)
[2021-07-14] MEDS ORDERED: Ondansetron ODT 4 MG TAB SL SCH (03:45)
[2021-07-14 05:29] LABS: #Eosinphils 0.1 thou/uL (0.0-0.7); #Lymphocytes 1.1 thou/uL (1.20-3.40); #Monocytes 0.7 thou/uL (0.11-0.59); #Neutrophils 5.6 thou/uL (1.40-6.50); %Basophils 0.1 % (0.0-1.0); %Eosinophils 1.4 % (0.0-10.0); %Lymphocytes 14.5 % (21.0-51.0); %Monocytes 8.9 % (0.0-10.0); %Neutrophils 75.1 % (42.0-75.0); Hemoglobin 8.8 g/dL (14.0-18.0); Mean Corpuscular HGB CONC 32.6 g/dL (32.0-36.0); Mean Corpuscular Hemoglobin 31.6 pg (27.0-31.0); Mean Corpuscular Volume 96.9 fL (78.0-98.0); Mean Platelet Volume 7.7 fL (7.4-10.4); Platelet Count 126 thou/uL (130-400); RBC Distribution Width 16.2 % (11.5-14.5); White Blood Cell (WBC) Count 7.5 thou/uL (4.8-10.8)
[2021-07-14 05:37] LABS: Prothrombin Time 22.6 sec (12.0-14.7)
[2021-07-14 05:54] LABS: ALT (SGPT) 15 U/L (8-55); AST (SGOT) 16 U/L (5-34); Albumin 3.2 g/dL (3.4-4.8); Alkaline Phosphatase 67 U/L (40-110); Anion Gap 8 mmol/L (10-20); BUN (Urea Nitrogen) 21 mg/dL (8.4-25.7); Bilirubin, Total 0.9 mg/dL (0.2-1.2); Calc. Creatinine Clearance 106 mL/min (70-130); Calcium 8.5 mg/dL (7.8-10.44); Carbon Dioxide 37 mmol/L (23-31); Chloride 100 mmol/L (98-107); Globulin 2.5 g/dL (2.4-3.5); Glucose 120 mg/dL (83-110); Potassium 3.8 mmol/L (3.5-5.1); Protein, Total 5.7 g/dL (5.8-8.1); Sodium 141 mmol/L (136-145)
[2021-07-14] MEDS: Multivitamin W/ Minerals 1 TAB PO SCH (09:08)
[2021-07-14] MEDS: Tamsulosin HCl 0.4 MG CAP PO SCH (09:08)
[2021-07-14] MEDS: Potassium Chloride 20 MEQ TAB PO SCH (09:30)
[2021-07-14] MEDS: Carvedilol 6.25 MG TAB PO SCH (10:15)
[2021-07-14] MEDS: Amlodipine 5 MG TAB PO SCH (10:15)
[2021-07-14] MEDS: Bumetanide 1 MG TAB PO SCH (10:16)
[2021-07-14 16:41] VITALS: BP 104/59; TEMP 98
== END 2021-07-14 16:40 | disposition home or self-care (01) | DRG 812 ==
LOC: ERS 12:56 → 2SW 15:48 → OBSVTOIN 07-14 14:19
PROVIDERS: ADMIT Student in an Organized Health Care Education/Training Program; ATTEND Student in an Organized Health Care Education/Training Program
PROC: 30233N1 Transfusion of Nonautologous Red Blood Cells into Peripheral Vein, Percutaneous Approach (ICD-10-PCS; principal; 2021-07-14)
DX: D64.89 Other specified anemias (principal); J96.10 Chronic respiratory failure, unspecified whether with hypoxia or hypercapnia; I47.2 Ventricular tachycardia; I48.92 Unspecified atrial flutter; I50.42 Chronic combined systolic (congestive) and diastolic (congestive) heart failure; D50.9 Iron deficiency anemia, unspecified; Z20.822 Contact with and (suspected) exposure to COVID-19; J44.9 Chronic obstructive pulmonary disease, unspecified; I11.0 Hypertensive heart disease with heart failure; E66.01 Morbid (severe) obesity due to excess calories; I25.10 Atherosclerotic heart disease of native coronary artery without angina pectoris; I48.0 Paroxysmal atrial fibrillation; Z96.651 Presence of right artificial knee joint; Z85.038 Personal history of other malignant neoplasm of large intestine; Z85.51 Personal history of malignant neoplasm of bladder; Z95.1 Presence of aortocoronary bypass graft; Z99.81 Dependence on supplemental oxygen; Z95.5 Presence of coronary angioplasty implant and graft; Z87.891 Personal history of nicotine dependence; Z68.38 Body mass index [BMI] 38.0-38.9, adult
CPT/HCPCS: 36415; 36430; 71045; 71046; 71275; 74174; 80053; 83880; 84484; 85025; 85610; 85730; 86850; 86900; 86901; 93005; G0378; P9016; Q0162; U0003; U0005

== ENCOUNTER → 2021-08-13 | Day surgery (SDC) | payer MEDICARE, OTHER ==
[2021-08-07 12:55] VITALS: BMI 38.0
[~2021-08-13] MED LIST: PROPOFOL 200 MG/20 ML VIAL ONE
[2021-08-13 12:31] LABS: SARS-CoV-2 NAA Rapid Test Not Detected (NotDetected)
== END ==
LOC: CCL 11:14
PROVIDERS: ATTEND Internal Medicine Cardiovascular Disease
PROC: B24BZZ4 Ultrasonography of Heart with Aorta, Transesophageal (ICD-10-PCS; principal; 2021-08-13)
DX: I48.0 Paroxysmal atrial fibrillation (principal); I08.1 Rheumatic disorders of both mitral and tricuspid valves; I70.0 Atherosclerosis of aorta; I50.40 Unspecified combined systolic (congestive) and diastolic (congestive) heart failure; D64.9 Anemia, unspecified; Z79.01 Long term (current) use of anticoagulants; Z79.02 Long term (current) use of antithrombotics/antiplatelets; Z79.899 Other long term (current) drug therapy; Z95.0 Presence of cardiac pacemaker; Z95.818 Presence of other cardiac implants and grafts; Z20.822 Contact with and (suspected) exposure to COVID-19
CPT/HCPCS: 93312; U0002

== ENCOUNTER 2021-11-19 23:40 | Inpatient (IN) | payer MEDICARE, OTHER ==
[2021-11-20 00:25] LABS: #Lymphocytes 0.7 thou/uL (1.20-3.40); #Monocytes 0.7 thou/uL (0.11-0.59); #Neutrophils 10.9 thou/uL (1.40-6.50); %Eosinophils 0.4 % (0.0-10.0); %Lymphocytes 5.5 % (21.0-51.0); %Neutrophils 88.2 % (42.0-75.0); Hemoglobin 11.4 g/dL (14.0-18.0); Mean Corpuscular HGB CONC 30.1 g/dL (32.0-36.0); Mean Corpuscular Hemoglobin 30.8 pg (27.0-31.0); Platelet Count 140 thou/uL (130-400); RBC Distribution Width 22.8 % (11.5-14.5); White Blood Cell (WBC) Count 12.3 thou/uL (4.8-10.8)
[2021-11-20 00:38] LABS: INR-International Normal Ratio 0.9; PTT 32.8 sec (22.9-36.1); Prothrombin Time 12.7 sec (12.0-14.7)
[2021-11-20 00:39] LABS: D-Dimer Test 0.88 *mcg/mL (0.27-0.43)
[2021-11-20 00:43] LABS: Hypochromia SLIGHT = 6-15 cells (100X) (0-5/hpf); MDiff Complete? YES; Macrocytosis SLIGHT = 6-15 cells (100X) (0-5/hpf); Platelet Morphology Comment Appears Adequate; Polychromasia SLIGHT = 2-3 cells (100X) (0-2/hpf)
[2021-11-20 00:55] LABS: ALT (SGPT) 16 U/L (8-55); AST (SGOT) 17 U/L (5-34); Anion Gap 13 mmol/L (10-20); BUN (Urea Nitrogen) 27 mg/dL (8.4-25.7); Bilirubin, Total 0.9 mg/dL (0.2-1.2); Calc. Creatinine Clearance 0 mL/min (70-130); Calcium 8.8 mg/dL (7.8-10.44); Carbon Dioxide 36 mmol/L (23-31); Chloride 97 mmol/L (98-107); Globulin 2.4 g/dL (2.4-3.5); Glucose 122 mg/dL (83-110); Potassium 3.9 mmol/L (3.5-5.1); Protein, Total 6.4 g/dL (5.8-8.1); Sodium 142 mmol/L (136-145)
[2021-11-20 01:38] LABS: Alkaline Phosphatase 76 U/L (40-110)
[2021-11-20] MEDS ORDERED: cefTRIAXone\\ROCEPHIN 2 GM VIAL ONE (04:24)
[2021-11-20] MEDS ORDERED: Ipratropium Bromide 2.5 ml Neb NEB PRN (04:39)
[2021-11-20 05:37] VITALS: BMI 38.0
[2021-11-20] MEDS ORDERED: Azithromycin 500 MG in Sodium Chloride 0.9% 250 ML 250 ML IVPB SCH (06:00)
[2021-11-20] MEDS: Aspirin 81 mg Enteric Coated Tablet PO SCH (08:00)
[2021-11-20] MEDS: Potassium Chloride 20 MEQ TAB PO SCH ×2 (08:00→20:10)
[2021-11-20] MEDS: Enoxaparin Sodium 40 MG/0.4 ML SYRINGE SC SCH (08:00)
[2021-11-20] MEDS: Multivitamin W/ Minerals 1 TAB PO SCH (08:01)
[2021-11-20] MEDS: predniSONE 20 MG TAB PO SCH (08:01)
[2021-11-20] MEDS: Tamsulosin HCl 0.4 MG CAP PO SCH (08:01)
[2021-11-20] MEDS: Clopidogrel Bisulfate 75 MG TAB PO SCH (08:01)
[2021-11-20] MEDS: Carvedilol 6.25 MG TAB PO SCH ×2 (08:01→16:50)
[2021-11-20] MEDS: guaiFENesin ER 600 MG TAB PO SCH ×2 (08:01→20:10)
[2021-11-20] MEDS: Ipratropium Bromide 2.5 ml Neb NEB SCH ×5 (08:14→23:50)
[2021-11-20] MEDS: Mometasone 200 MCG/Formoterol 5 MCG 120 PUFF INHALER INH SCH (08:14)
[2021-11-20] MEDS: Bumetanide 1 MG TAB PO SCH ×3 (08:24→20:11)
[2021-11-20] MEDS ORDERED: Polyethylene Glycol 3350 17 GM Packet PO PRN (10:43)
[2021-11-20 12:50] LABS: SARS-CoV-2 NAA Rapid Test Not Detected (NotDetected)
[2021-11-20] MEDS ORDERED: Iopamidol 370 76% 100 ML VIAL ONE (14:19)
[2021-11-20] MEDS ORDERED: Benzonatate 100 MG CAP PO PRN (17:37)
[2021-11-21] MEDS: Ipratropium Bromide 2.5 ml Neb NEB SCH ×3 (03:37→13:06)
[2021-11-21] MEDS ORDERED: cefTRIAXone\\ROCEPHIN 1 GM in Sodium Chloride 0.9% 100 ML IVPB SCH (05:00)
[2021-11-21 05:55] LABS: Anion Gap 12 mmol/L (10-20); BUN (Urea Nitrogen) 26 mg/dL (8.4-25.7); Calc. Creatinine Clearance 96 mL/min (70-130); Carbon Dioxide 34 mmol/L (23-31); Chloride 97 mmol/L (98-107); Glucose 119 mg/dL (83-110); Potassium 3.9 mmol/L (3.5-5.1); Sodium 139 mmol/L (136-145)
[2021-11-21 06:10] LABS: Anisocytosis SLIGHT = 6-15 cells (100X) (0-5/hpf); Band 12 % (5-11); Hemoglobin 10.9 g/dL (14.0-18.0); Lymphocytes 6 % (21-51); MDiff Complete? YES; Macrocytosis SLIGHT = 6-15 cells (100X) (0-5/hpf); Mean Corpuscular HGB CONC 29.4 g/dL (32.0-36.0); Mean Corpuscular Hemoglobin 30.4 pg (27.0-31.0); Mean Platelet Volume 8.2 fL (7.4-10.4); Monocytes 5 % (0-10); Neutrophil 77 % (42-75); Platelet Count 120 thou/uL (130-400); RBC Distribution Width 22.6 % (11.5-14.5); White Blood Cell (WBC) Count 15.1 thou/uL (4.8-10.8)
[2021-11-21] MEDS: Mometasone 200 MCG/Formoterol 5 MCG 120 PUFF INHALER INH SCH (07:18)
[2021-11-21] MEDS: Enoxaparin Sodium 40 MG/0.4 ML SYRINGE SC SCH (08:34)
[2021-11-21] MEDS: Bumetanide 1 MG TAB PO SCH (08:35)
[2021-11-21] MEDS: Clopidogrel Bisulfate 75 MG TAB PO SCH (08:35)
[2021-11-21] MEDS: predniSONE 20 MG TAB PO SCH (08:35)
[2021-11-21] MEDS: Carvedilol 6.25 MG TAB PO SCH (08:35)
[2021-11-21] MEDS: Tamsulosin HCl 0.4 MG CAP PO SCH (08:35)
[2021-11-21] MEDS: Multivitamin W/ Minerals 1 TAB PO SCH (08:35)
[2021-11-21] MEDS: Aspirin 81 mg Enteric Coated Tablet PO SCH (08:35)
[2021-11-21] MEDS: Potassium Chloride 20 MEQ TAB PO SCH (08:35)
[2021-11-21] MEDS: guaiFENesin ER 600 MG TAB PO SCH (08:35)
[2021-11-21] MEDS ORDERED: Azithromycin 250 MG TAB PO SCH (09:00)
[2021-11-21 12:10] VITALS: BP 112/72; TEMP 98.3
== END 2021-11-21 14:23 | disposition home health service (06) | DRG 871 ==
LOC: ERS 23:40 → T4-B 11-20 04:01
PROVIDERS: ADMIT Family Medicine; ATTEND Family Medicine
DX: A41.9 Sepsis, unspecified organism (principal); J96.01 Acute respiratory failure with hypoxia; J44.1 Chronic obstructive pulmonary disease with (acute) exacerbation; I48.92 Unspecified atrial flutter; I50.32 Chronic diastolic (congestive) heart failure; I13.0 Hypertensive heart and chronic kidney disease with heart failure and stage 1 through stage 4 chronic kidney disease, or unspecified chronic kidney disease; N17.9 Acute kidney failure, unspecified; Z20.822 Contact with and (suspected) exposure to COVID-19; I48.91 Unspecified atrial fibrillation; D50.9 Iron deficiency anemia, unspecified; N18.31 Chronic kidney disease, stage 3a; I25.10 Atherosclerotic heart disease of native coronary artery without angina pectoris; C67.9 Malignant neoplasm of bladder, unspecified; Z96.651 Presence of right artificial knee joint; Z95.5 Presence of coronary angioplasty implant and graft; Z99.81 Dependence on supplemental oxygen; Z95.0 Presence of cardiac pacemaker; Z87.891 Personal history of nicotine dependence; Z79.82 Long term (current) use of aspirin; Z79.899 Other long term (current) drug therapy; Z85.038 Personal history of other malignant neoplasm of large intestine
CPT/HCPCS: 36415; 71045; 71275; 80048; 80053; 83605; 83880; 84145; 84484; 85025; 85379; 85610; 85730; 87040; 87086; 93005; 93306; 94640; 94760; 96365; J0456; J0696; J1650; J7050; J7512; Q9967; U0002

== ENCOUNTER 2021-12-22 04:51 | Inpatient (IN) | payer MEDICARE, OTHER ==
[2021-12-22 05:51] LABS: ALT (SGPT) 15 U/L (8-55); AST (SGOT) 17 U/L (5-34); Albumin 3.7 g/dL (3.4-4.8); Alkaline Phosphatase 87 U/L (40-110); BUN (Urea Nitrogen) 31 mg/dL (8.4-25.7); Bilirubin, Total 1.7 mg/dL (0.2-1.2); Calc. Creatinine Clearance 0 mL/min (70-130); Calcium 9.1 mg/dL (7.8-10.44); Globulin 3.6 g/dL (2.4-3.5); Glucose 112 mg/dL (83-110); Protein, Total 7.3 g/dL (5.8-8.1)
[2021-12-22 05:52] LABS: Hemoglobin 10.4 g/dL (14.0-18.0); Mean Corpuscular HGB CONC 29.6 g/dL (32.0-36.0); Mean Corpuscular Hemoglobin 27.8 pg (27.0-31.0); Mean Platelet Volume 7.4 fL (7.4-10.4); Platelet Count 189 thou/uL (130-400); RBC Distribution Width 19.7 % (11.5-14.5); Red Blood Cell (RBC) Count 3.76 mill/uL (4.70-6.10); White Blood Cell (WBC) Count 8.1 thou/uL (4.8-10.8)
[2021-12-22 06:00] LABS: Anion Gap 19 mmol/L (10-20); Chloride 76 mmol/L (98-107); Sodium 135 mmol/L (136-145)
[2021-12-22 06:04] LABS: Carbon Dioxide 43 mmol/L (23-31); Potassium 2.8 mmol/L (3.5-5.1)
[2021-12-22 06:21] LABS: #Eosinphils 0.1 thou/uL (0.0-0.7); %Basophils 0.2 % (0.0-1.0); %Eosinophils 0.9 % (0.0-10.0); %Lymphocytes 12.7 % (21.0-51.0); %Monocytes 12.5 % (0.0-10.0); %Neutrophils 73.6 % (42.0-75.0); Anisocytosis SLIGHT = 6-15 cells (100X) (0-5/hpf); MDiff Complete? YES
[2021-12-22] MEDS ORDERED: Potassium Chloride 40 MEQ in Sodium Chloride 0.9% 250 ML 250 ML IVPB SCH (07:15)
[2021-12-22] MEDS ORDERED: Acetaminophen 325 MG TAB PO PRN (08:44)
[2021-12-22] MEDS ORDERED: Potassium Chloride 20 MEQ TAB PO SCH ×2 (09:00→17:30)
[2021-12-22] MEDS: Enoxaparin Sodium 40 MG/0.4 ML SYRINGE SC SCH (11:26)
[2021-12-22 11:47] VITALS: BMI 35.7
[2021-12-22 16:18] LABS: BUN (Urea Nitrogen) 33 mg/dL (8.4-25.7); Calc. Creatinine Clearance 59 mL/min (70-130)
[2021-12-22 16:19] LABS: Glucose 127 mg/dL (83-110)
[2021-12-22] MEDS ORDERED: Bumetanide 1 MG TAB PO SCH (16:30)
[2021-12-22 16:42] LABS: Chloride 80 mmol/L (98-107); Potassium 3.1 mmol/L (3.5-5.1); Sodium 139 mmol/L (136-145)
[2021-12-22 16:45] LABS: Anion Gap 17 mmol/L (10-20)
[2021-12-22 16:49] LABS: Carbon Dioxide 45 mmol/L (23-31); Critical Call Chemistry 2NO.TS1@!1649
[2021-12-22] MEDS: Carvedilol 6.25 MG TAB PO SCH (18:26)
[2021-12-22] MEDS: Sodium Chloride 0.9% 1,000 ML IV SCH (18:26)
[2021-12-22 18:53] LABS: Magnesium 2.4 mg/dL (1.6-2.6)
[2021-12-22] MEDS: Potassium Chloride 20 MEQ TAB PO SCH (20:35)
[2021-12-22] MEDS: Benzonatate 100 MG CAP PO PRN (20:35)
[2021-12-22] MEDS: Amlodipine 5 MG TAB PO SCH (20:35)
[2021-12-23] MEDS: Sodium Chloride 0.9% 1,000 ML IV SCH (04:09)
[2021-12-23 04:31] LABS: Hemoglobin 9.8 g/dL (14.0-18.0); Mean Corpuscular HGB CONC 30.8 g/dL (32.0-36.0); Mean Corpuscular Volume 94.3 fL (78.0-98.0); Mean Platelet Volume 7.7 fL (7.4-10.4); Platelet Count 149 thou/uL (130-400); RBC Distribution Width 19.7 % (11.5-14.5); Red Blood Cell (RBC) Count 3.36 mill/uL (4.70-6.10); White Blood Cell (WBC) Count 7.6 thou/uL (4.8-10.8)
[2021-12-23 05:07] LABS: ALT (SGPT) 13 U/L (8-55); AST (SGOT) 15 U/L (5-34); Albumin 3.4 g/dL (3.4-4.8); Alkaline Phosphatase 83 U/L (40-110); BUN (Urea Nitrogen) 32 mg/dL (8.4-25.7); Bilirubin, Total 1.2 mg/dL (0.2-1.2); Calc. Creatinine Clearance 69 mL/min (70-130); Calcium 8.9 mg/dL (7.8-10.44); Globulin 3.2 g/dL (2.4-3.5); Glucose 115 mg/dL (83-110); Magnesium 2.4 mg/dL (1.6-2.6); Protein, Total 6.6 g/dL (5.8-8.1)
[2021-12-23 05:10] LABS: #Eosinphils 0.1 thou/uL (0.0-0.7); #Lymphocytes 1.1 thou/uL (1.20-3.40); #Monocytes 0.8 thou/uL (0.11-0.59); #Neutrophils 5.5 thou/uL (1.40-6.50); %Eosinophils 1.6 % (0.0-10.0); %Monocytes 10.8 % (0.0-10.0); %Neutrophils 72.5 % (42.0-75.0); Anisocytosis SLIGHT = 6-15 cells (100X) (0-5/hpf); MDiff Complete? YES; Stomatocytes SLIGHT = 2-5 cells (100X) (0-1/hpf)
[2021-12-23 05:16] LABS: Phosphorus 3.5 mg/dL (2.3-4.7)
[2021-12-23 05:17] LABS: Chloride 84 mmol/L (98-107); Potassium 3.4 mmol/L (3.5-5.1); Sodium 138 mmol/L (136-145)
[2021-12-23 05:20] LABS: Anion Gap 13 mmol/L (10-20)
[2021-12-23 05:24] LABS: Carbon Dioxide 44 mmol/L (23-31)
[2021-12-23] MEDS: Carvedilol 6.25 MG TAB PO SCH ×2 (08:20→18:08)
[2021-12-23] MEDS: Amlodipine 5 MG TAB PO SCH ×2 (09:22→21:51)
[2021-12-23] MEDS: Tamsulosin HCl 0.4 MG CAP PO SCH (09:23)
[2021-12-23] MEDS: Multivit, Therapeutic 1 TAB PO SCH (09:23)
[2021-12-23] MEDS: Potassium Chloride 20 MEQ TAB PO SCH ×2 (09:23→21:51)
[2021-12-23] MEDS: Aspirin 81 mg Enteric Coated Tablet PO SCH (09:23)
[2021-12-23] MEDS: Enoxaparin Sodium 40 MG/0.4 ML SYRINGE SC SCH ×2 (09:27→09:29)
[2021-12-23] MEDS: Clopidogrel Bisulfate 75 MG TAB PO SCH (09:27)
[2021-12-23 11:59] LABS: SARS-CoV-2 PCR by NAA Not Detected (NotDetected)
[2021-12-23] MEDS: Ondansetron ODT 4 MG TAB PO PRN ×2 (13:58→20:07)
[2021-12-23] MEDS ORDERED: Potassium Chloride 20 MEQ TAB PO SCH (14:00)
[2021-12-23] MEDS ORDERED: Simethicone Chewable 80 MG TAB PO PRN (19:53)
[2021-12-23] MEDS ORDERED: Promethazine 25 MG TAB PO SCH (21:15)
[2021-12-23] MEDS ORDERED: Lidocaine 2% Viscous Solution 10 ML, Aluminum & Magnesium Hydroxide 30 ML SSW SCH (21:15)
[2021-12-24 04:43] LABS: #Eosinphils 0.1 thou/uL (0.0-0.7); #Lymphocytes 0.9 thou/uL (1.20-3.40); #Monocytes 0.7 thou/uL (0.11-0.59); #Neutrophils 4.5 thou/uL (1.40-6.50); %Basophils 0.1 % (0.0-1.0); %Eosinophils 1.5 % (0.0-10.0); %Lymphocytes 14.4 % (21.0-51.0); %Monocytes 11.7 % (0.0-10.0); %Neutrophils 72.3 % (42.0-75.0); Hemoglobin 9.3 g/dL (14.0-18.0); Mean Corpuscular HGB CONC 29.1 g/dL (32.0-36.0); Mean Corpuscular Hemoglobin 28.1 pg (27.0-31.0); Mean Corpuscular Volume 96.5 fL (78.0-98.0); Mean Platelet Volume 7.7 fL (7.4-10.4); Platelet Count 127 thou/uL (130-400); RBC Distribution Width 19.2 % (11.5-14.5); White Blood Cell (WBC) Count 6.2 thou/uL (4.8-10.8)
[2021-12-24 04:56] LABS: Phosphorus 3.2 mg/dL (2.3-4.7)
[2021-12-24 05:09] LABS: Anion Gap 16 mmol/L (10-20); Carbon Dioxide 39 mmol/L (23-31); Chloride 85 mmol/L (98-107); Potassium 3.7 mmol/L (3.5-5.1); Sodium 136 mmol/L (136-145)
[2021-12-24 05:36] LABS: ALT (SGPT) 298 U/L (8-55); AST (SGOT) 425 U/L (5-34); Albumin 3.3 g/dL (3.4-4.8); Alkaline Phosphatase 247 U/L (40-110); BUN (Urea Nitrogen) 33 mg/dL (8.4-25.7); Bilirubin, Total 2.8 mg/dL (0.2-1.2); Calc. Creatinine Clearance 56 mL/min (70-130); Calcium 8.9 mg/dL (7.8-10.44); Globulin 3.2 g/dL (2.4-3.5); Glucose 114 mg/dL (83-110); Magnesium 2.7 mg/dL (1.6-2.6); Protein, Total 6.5 g/dL (5.8-8.1)
[2021-12-24] MEDS: Carvedilol 6.25 MG TAB PO SCH ×2 (08:42→17:18)
[2021-12-24] MEDS: Amlodipine 5 MG TAB PO SCH ×2 (09:43→21:14)
[2021-12-24] MEDS: Aspirin 81 mg Enteric Coated Tablet PO SCH (09:43)
[2021-12-24] MEDS: Clopidogrel Bisulfate 75 MG TAB PO SCH (09:43)
[2021-12-24] MEDS: Multivit, Therapeutic 1 TAB PO SCH (09:44)
[2021-12-24] MEDS: Enoxaparin Sodium 40 MG/0.4 ML SYRINGE SC SCH (09:44)
[2021-12-24] MEDS: Polyethylene Glycol 3350 17 GM Packet PO SCH (09:44)
[2021-12-24] MEDS: Potassium Chloride 20 MEQ TAB PO SCH ×2 (09:44→21:14)
[2021-12-24] MEDS: Tamsulosin HCl 0.4 MG CAP PO SCH (09:45)
[2021-12-24 14:34] LABS: ALT (SGPT) 435 U/L (8-55); AST (SGOT) 529 U/L (5-34); Albumin 3.4 g/dL (3.4-4.8); Alkaline Phosphatase 285 U/L (40-110); Bilirubin, Total 3.3 mg/dL (0.2-1.2); Protein, Total 6.6 g/dL (5.8-8.1)
[2021-12-25 07:52] LABS: ALT (SGPT) 562 U/L (8-55); AST (SGOT) 536 U/L (5-34); Albumin 3.6 g/dL (3.4-4.8); Alkaline Phosphatase 340 U/L (40-110); BUN (Urea Nitrogen) 32 mg/dL (8.4-25.7); Bilirubin, Total 3.4 mg/dL (0.2-1.2); Calc. Creatinine Clearance 61 mL/min (70-130); Calcium 8.9 mg/dL (7.8-10.44); Globulin 3.6 g/dL (2.4-3.5); Glucose 115 mg/dL (83-110); Protein, Total 7.2 g/dL (5.8-8.1)
[2021-12-25 08:02] LABS: Anion Gap 13 mmol/L (10-20); Carbon Dioxide 40 mmol/L (23-31); Chloride 87 mmol/L (98-107); Potassium 4.1 mmol/L (3.5-5.1); Sodium 136 mmol/L (136-145)
[2021-12-25 08:18] LABS: #Eosinphils 0.1 thou/uL (0.0-0.7); #Lymphocytes 0.9 thou/uL (1.20-3.40); #Neutrophils 7.8 thou/uL (1.40-6.50); %Basophils 0.1 % (0.0-1.0); %Eosinophils 1.2 % (0.0-10.0); %Lymphocytes 9.5 % (21.0-51.0); %Monocytes 10.3 % (0.0-10.0); %Neutrophils 78.9 % (42.0-75.0); Hemoglobin 9.8 g/dL (14.0-18.0); Mean Corpuscular HGB CONC 28.7 g/dL (32.0-36.0); Mean Corpuscular Hemoglobin 28.1 pg (27.0-31.0); Mean Platelet Volume 8.1 fL (7.4-10.4); Platelet Count 139 thou/uL (130-400); RBC Distribution Width 19.4 % (11.5-14.5); Red Blood Cell (RBC) Count 3.49 mill/uL (4.70-6.10); White Blood Cell (WBC) Count 9.9 thou/uL (4.8-10.8)
[2021-12-25] MEDS: Enoxaparin Sodium 40 MG/0.4 ML SYRINGE SC SCH (08:48)
[2021-12-25] MEDS: Polyethylene Glycol 3350 17 GM Packet PO SCH (08:48)
[2021-12-25] MEDS: Tamsulosin HCl 0.4 MG CAP PO SCH (08:48)
[2021-12-25] MEDS: Multivit, Therapeutic 1 TAB PO SCH (08:48)
[2021-12-25] MEDS: Aspirin 81 mg Enteric Coated Tablet PO SCH (08:48)
[2021-12-25] MEDS: Clopidogrel Bisulfate 75 MG TAB PO SCH (08:48)
[2021-12-25] MEDS: Potassium Chloride 20 MEQ TAB PO SCH ×2 (08:49→21:04)
[2021-12-25 09:04] LABS: MDiff Complete? YES; Polychromasia SLIGHT = 2-3 cells (100X) (0-2/hpf)
[2021-12-25] MEDS: Amlodipine 5 MG TAB PO SCH ×2 (10:45→21:04)
[2021-12-25] MEDS: Carvedilol 6.25 MG TAB PO SCH ×2 (10:45→17:14)
[2021-12-25] MEDS ORDERED: Morphine 2 MG/ML VIAL ONE (15:03)
[2021-12-25] MEDS: Benzonatate 100 MG CAP PO PRN (21:07)
[2021-12-26] MEDS ORDERED: guaiFENesin ER 600 MG TAB PO SCH (04:45)
[2021-12-26 04:49] LABS: #Eosinphils 0.1 thou/uL (0.0-0.7); #Lymphocytes 0.9 thou/uL (1.20-3.40); #Monocytes 1.2 thou/uL (0.11-0.59); #Neutrophils 8.2 thou/uL (1.40-6.50); %Eosinophils 0.9 % (0.0-10.0); %Lymphocytes 8.9 % (21.0-51.0); %Monocytes 11.6 % (0.0-10.0); %Neutrophils 78.5 % (42.0-75.0); Hemoglobin 9.9 g/dL (14.0-18.0); Mean Corpuscular Volume 96.5 fL (78.0-98.0); Platelet Count 130 thou/uL (130-400); RBC Distribution Width 19.8 % (11.5-14.5); Red Blood Cell (RBC) Count 3.55 mill/uL (4.70-6.10); White Blood Cell (WBC) Count 10.4 thou/uL (4.8-10.8)
[2021-12-26 05:10] LABS: ALT (SGPT) 457 U/L (8-55); AST (SGOT) 282 U/L (5-34); Albumin 3.5 g/dL (3.4-4.8); Alkaline Phosphatase 312 U/L (40-110); BUN (Urea Nitrogen) 30 mg/dL (8.4-25.7); Bilirubin, Total 2.6 mg/dL (0.2-1.2); Calc. Creatinine Clearance 79 mL/min (70-130); Calcium 9.2 mg/dL (7.8-10.44); Globulin 3.6 g/dL (2.4-3.5); Glucose 112 mg/dL (83-110); Protein, Total 7.1 g/dL (5.8-8.1)
[2021-12-26 05:19] LABS: Anion Gap 16 mmol/L (10-20); Carbon Dioxide 37 mmol/L (23-31); Chloride 88 mmol/L (98-107); Potassium 4.3 mmol/L (3.5-5.1); Sodium 137 mmol/L (136-145)
[2021-12-26] MEDS: Tamsulosin HCl 0.4 MG CAP PO SCH (09:19)
[2021-12-26] MEDS: Multivit, Therapeutic 1 TAB PO SCH (09:19)
[2021-12-26] MEDS: Aspirin 81 mg Enteric Coated Tablet PO SCH (09:19)
[2021-12-26] MEDS: Polyethylene Glycol 3350 17 GM Packet PO SCH (09:20)
[2021-12-26] MEDS: Enoxaparin Sodium 40 MG/0.4 ML SYRINGE SC SCH (09:20)
[2021-12-26] MEDS: Clopidogrel Bisulfate 75 MG TAB PO SCH (09:20)
[2021-12-26] MEDS: Potassium Chloride 20 MEQ TAB PO SCH (09:20)
[2021-12-26] MEDS: Amlodipine 5 MG TAB PO SCH (09:20)
[2021-12-26] MEDS: Carvedilol 6.25 MG TAB PO SCH (09:20)
[2021-12-26 12:48] VITALS: BP 109/72; TEMP 100.2
[2021-12-26] MEDS ORDERED: Bumetanide 1 MG TAB PO SCH (13:51)
[2021-12-26] MEDS: FORMOTEROL INH SCH (15:49)
[2021-12-26] MEDS: MOMETASONE INH SCH (15:49)
[2021-12-26] MEDS ORDERED: Carvedilol 3.125 MG TAB PO SCH (17:00)
[2021-12-27] MEDS ORDERED: Bumetanide 1 MG TAB PO SCH (09:00)
== END 2021-12-26 15:35 | disposition home or self-care (01) | DRG 683 ==
LOC: ERS 04:51 → 2NO 06:23
PROVIDERS: ADMIT Family Medicine; ATTEND Family Medicine
DX: N17.9 Acute kidney failure, unspecified (principal); I50.32 Chronic diastolic (congestive) heart failure; E87.3 Alkalosis; I13.0 Hypertensive heart and chronic kidney disease with heart failure and stage 1 through stage 4 chronic kidney disease, or unspecified chronic kidney disease; K81.2 Acute cholecystitis with chronic cholecystitis; I48.91 Unspecified atrial fibrillation; J44.9 Chronic obstructive pulmonary disease, unspecified; Z96.651 Presence of right artificial knee joint; E87.6 Hypokalemia; I25.10 Atherosclerotic heart disease of native coronary artery without angina pectoris; D50.9 Iron deficiency anemia, unspecified; N18.31 Chronic kidney disease, stage 3a; D63.1 Anemia in chronic kidney disease; Z20.822 Contact with and (suspected) exposure to COVID-19; K59.00 Constipation, unspecified; T50.2X5A Adverse effect of carbonic-anhydrase inhibitors, benzothiadiazides and other diuretics, initial encounter; E87.8 Other disorders of electrolyte and fluid balance, not elsewhere classified; Z95.0 Presence of cardiac pacemaker; Z95.5 Presence of coronary angioplasty implant and graft; Z87.891 Personal history of nicotine dependence; Z79.899 Other long term (current) drug therapy; Z79.82 Long term (current) use of aspirin; Z85.038 Personal history of other malignant neoplasm of large intestine; Z85.51 Personal history of malignant neoplasm of bladder; Y92.009 Unspecified place in unspecified non-institutional (private) residence as the place of occurrence of the external cause
CPT/HCPCS: 36415; 71045; 76705; 78227; 80053; 83735; 84100; 84484; 85025; 86850; 86900; 86901; 93005; 94640; A9537; J1650; J2270; J3480; J7050; J7620; Q0162; Q0169; U0003; U0005

== ENCOUNTER 2021-12-26 20:25 | Emergency (ER) | payer MEDICARE, OTHER ==
[2021-12-26 21:03] LABS: #Lymphocytes 1.1 thou/uL (1.20-3.40); #Monocytes 1.2 thou/uL (0.11-0.59); #Neutrophils 6.8 thou/uL (1.40-6.50); %Eosinophils 0.5 % (0.0-10.0); %Lymphocytes 11.6 % (21.0-51.0); %Monocytes 12.9 % (0.0-10.0); %Neutrophils 74.9 % (42.0-75.0); Mean Corpuscular HGB CONC 29.1 g/dL (32.0-36.0); Mean Corpuscular Hemoglobin 27.7 pg (27.0-31.0); Mean Platelet Volume 8.4 fL (7.4-10.4); Platelet Count 146 thou/uL (130-400); RBC Distribution Width 19.6 % (11.5-14.5); Red Blood Cell (RBC) Count 3.27 mill/uL (4.70-6.10); White Blood Cell (WBC) Count 9.1 thou/uL (4.8-10.8)
[2021-12-26 21:23] LABS: ALT (SGPT) 347 U/L (8-55); AST (SGOT) 148 U/L (5-34); Albumin 3.4 g/dL (3.4-4.8); Alkaline Phosphatase 281 U/L (40-110); BUN (Urea Nitrogen) 34 mg/dL (8.4-25.7); Bilirubin, Total 2.6 mg/dL (0.2-1.2); Calc. Creatinine Clearance 0 mL/min (70-130); Calcium 8.5 mg/dL (7.8-10.44); Globulin 2.9 g/dL (2.4-3.5); Glucose 117 mg/dL (83-110); Protein, Total 6.3 g/dL (5.8-8.1)
[2021-12-26 21:32] LABS: Anion Gap 16 mmol/L (10-20); Carbon Dioxide 36 mmol/L (23-31); Chloride 88 mmol/L (98-107); Potassium 4.1 mmol/L (3.5-5.1); Sodium 136 mmol/L (136-145)
== END 2021-12-27 00:08 | disposition home or self-care (01) ==
LOC: ERS 20:25
DX: R53.1 Weakness (principal); K81.1 Chronic cholecystitis; I11.0 Hypertensive heart disease with heart failure; I50.9 Heart failure, unspecified; I48.91 Unspecified atrial fibrillation; J44.9 Chronic obstructive pulmonary disease, unspecified; C95.90 Leukemia, unspecified not having achieved remission; Z87.891 Personal history of nicotine dependence; Z79.82 Long term (current) use of aspirin; Z79.01 Long term (current) use of anticoagulants; Z79.899 Other long term (current) drug therapy
CPT/HCPCS: 71045; 83605; 84484; 94760

== ENCOUNTER 2022-09-23 09:30 | Outpatient (CLI) | payer MEDICARE, OTHER | END 2022-09-23 09:31 | disposition home or self-care (01) | LOC: RAD 09:30 | PROVIDERS: ATTEND Internal Medicine Critical Care Medicine | DX: R06.00 Dyspnea, unspecified (principal); J90 Pleural effusion, not elsewhere classified; J98.11 Atelectasis; I51.7 Cardiomegaly; R09.89 Other specified symptoms and signs involving the circulatory and respiratory systems; I70.0 Atherosclerosis of aorta; Z95.0 Presence of cardiac pacemaker | CPT/HCPCS: 71046 ==

== ENCOUNTER 2023-05-22 13:42 | Inpatient (IN) | payer MEDICARE, OTHER ==
[2023-05-22 14:18] LABS: #Eosinphils 0.1 thou/uL (0.0-0.7); #Monocytes 0.5 thou/uL (0.11-0.59); #Neutrophils 5.7 thou/uL (1.40-6.50); %Basophils 0.1 % (0.0-1.0); %Eosinophils 0.8 % (0.0-10.0); %Lymphocytes 13.7 % (21.0-51.0); %Monocytes 7.4 % (0.0-10.0); %Neutrophils 77.7 % (42.0-75.0); Hematocrit 37.1 % (42.0-52.0); Hemoglobin 10.9 g/dL (14.0-18.0); Mean Corpuscular HGB CONC 29.4 g/dL (32.0-36.0); Mean Corpuscular Hemoglobin 27.5 pg (27.0-31.0); Mean Corpuscular Volume 93.7 fl (78.0-98.0); Mean Platelet Volume 10.1 fL (7.4-10.4); Platelet Count 106 10x3/uL (130-400); RBC Distribution Width 15.9 % (11.5-14.5); Red Blood Cell (RBC) Count 3.96 mill/uL (4.70-6.10); White Blood Cell (WBC) Count 7.3 10x3/uL (4.8-10.8)
[2023-05-22 14:41] LABS: ALT (SGPT) 18 U/L (8-55); AST (SGOT) 19 U/L (5-34); Albumin 4.3 g/dL (3.4-4.8); Alkaline Phosphatase 97 U/L (40-110); Anion Gap 12 mmol/L (10-20); BUN (Urea Nitrogen) 26 mg/dL (8.4-25.7); Bilirubin, Total 1.1 mg/dL (0.2-1.2); Calc. Creatinine Clearance 0 mL/min (70-130); Calcium 9.3 mg/dL (7.8-10.44); Carbon Dioxide 36 mmol/L (23-31); Chloride 94 mmol/L (98-107); Estimated GFR 61; Glucose 110 mg/dL (83-110); Lipase 5 U/L (8-78); Potassium 4.2 mmol/L (3.5-5.1); Protein, Total 7.3 g/dL (5.8-8.1); Sodium 138 mmol/L (136-145)
[2023-05-22 14:45] LABS: Troponin I 0.013 ng/mL (< 0.028)
[2023-05-22] MEDS ORDERED: Furosemide 40 MG/4 ML VIAL ONE (15:19)
[2023-05-22] MEDS ORDERED: LevoFLOXacin 750 mg/D5W 150 ml Premix Bag ONE (16:41)
[2023-05-22] MEDS ORDERED: Ipratropium/Albuterol 3 ML NEB ONE (16:58)
[2023-05-22] MEDS ORDERED: Ipratropium Bromide 2.5 ml Neb ONE (17:00)
[2023-05-22] MEDS ORDERED: Albuterol 2.5 MG/0.5 ML NEB ONE (17:01)
[2023-05-22] MEDS ORDERED: methylPREDNISolone Sod Succ 40 MG VIAL IVP SCH (17:15)
[2023-05-22] MEDS ORDERED: Magnesium 2 GM/50 ML(in water) 2 GM in Premix 1 BAG IVPB SCH (18:00)
[2023-05-22] MEDS: Ipratropium/Albuterol 3 ML NEB NEB SCH ×2 (18:59→22:52)
[2023-05-22 19:54] LABS: Magnesium 2.3 mg/dL (1.6-2.6)
[2023-05-22 20:22] LABS: Actual Bicarbonate (HCO3v) 33.1 mEq/L (22-28); Base Excess 7.4 mEq/L (-2.0 to +3.0); Chloride (VBG) 95 mmol/L (98-106); Hematocrit-VBG 36 % (42.0-52.0); Hemoglobin (Hb) 12.2 g/dL (12.6-17.4); Potassium (VBG) 3.94 mmol/L (3.70-5.30); Sodium 138 mmol/L (133-146); pH (venous) 7.424 (7.32-7.43)
[2023-05-22 20:26] LABS: Troponin I Less than 0.010 ng/mL (< 0.028)
[2023-05-22] MEDS: Acetaminophen 325 MG TAB PO PRN (21:36)
[2023-05-22] MEDS: Amlodipine 5 MG TAB PO SCH (21:38)
[2023-05-22] MEDS: Benzonatate 100 MG CAP PO PRN (22:01)
[2023-05-23] MEDS ORDERED: Tamsulosin HCl 0.4 MG CAP PO SCH (00:15)
[2023-05-23] MEDS ORDERED: Fluticasone Propionate Nasal Spray 16 gm Bottle NASAL SCH (00:15)
[2023-05-23 00:57] LABS: Legionella Urinary Ag Negative (Negative); Strep pneumo Urine Ag NEGATIVE (NEGATIVE)
[2023-05-23 01:26] LABS: SARS-CoV-2 NAA Rapid Test Not Detected (NotDetected)
[2023-05-23] MEDS: Ipratropium/Albuterol 3 ML NEB NEB SCH ×6 (02:34→23:00)
[2023-05-23 05:28] LABS: #Neutrophils 11.8 thou/uL (1.40-6.50); %Basophils 0.1 % (0.0-1.0); %Eosinophils 0.1 % (0.0-10.0); %Lymphocytes 5.6 % (21.0-51.0); %Monocytes 7.1 % (0.0-10.0); %Neutrophils 86.5 % (42.0-75.0); Hematocrit 34.7 % (42.0-52.0); Hemoglobin 10.2 g/dL (14.0-18.0); Mean Corpuscular HGB CONC 29.4 g/dL (32.0-36.0); Mean Corpuscular Hemoglobin 26.9 pg (27.0-31.0); Mean Corpuscular Volume 91.6 fl (78.0-98.0); Mean Platelet Volume 11.3 fL (7.4-10.4); RBC Distribution Width 16.1 % (11.5-14.5); Red Blood Cell (RBC) Count 3.79 mill/uL (4.70-6.10); White Blood Cell (WBC) Count 13.7 10x3/uL (4.8-10.8)
[2023-05-23 05:47] LABS: ALT (SGPT) 17 U/L (8-55); AST (SGOT) 30 U/L (5-34); Albumin 3.6 g/dL (3.4-4.8); Alkaline Phosphatase 86 U/L (40-110); Anion Gap 17 mmol/L (10-20); BUN (Urea Nitrogen) 24 mg/dL (8.4-25.7); Bilirubin, Total 1.8 mg/dL (0.2-1.2); Calc. Creatinine Clearance 98 mL/min (70-130); Calcium 8.4 mg/dL (7.8-10.44); Carbon Dioxide 33 mmol/L (23-31); Chloride 93 mmol/L (98-107); Estimated GFR 71; Glucose 99 mg/dL (83-110); Potassium 4.2 mmol/L (3.5-5.1); Protein, Total 6.6 g/dL (5.8-8.1); Sodium 139 mmol/L (136-145)
[2023-05-23 06:59] LABS: Platelet Count 97 10x3/uL (130-400)
[2023-05-23] MEDS: Fluticasone Propionate Nasal Spray 16 gm Bottle NASAL SCH (09:01)
[2023-05-23] MEDS: Polyethylene Glycol 3350 17 GM Packet PO SCH (09:01)
[2023-05-23] MEDS: Amlodipine 5 MG TAB PO SCH ×2 (09:01→21:20)
[2023-05-23] MEDS: Tamsulosin HCl 0.4 MG CAP PO SCH (09:02)
[2023-05-23] MEDS: Clopidogrel Bisulfate 75 MG TAB PO SCH (09:04)
[2023-05-23] MEDS: Bumetanide 1 MG TAB PO SCH (09:04)
[2023-05-23] MEDS: Metolazone 5 MG TAB PO SCH (09:04)
[2023-05-23] MEDS: Carvedilol 6.25 MG TAB PO SCH ×2 (09:04→17:46)
[2023-05-23] MEDS: methylPREDNISolone Sod Succ 40 MG VIAL IVP SCH (09:04)
[2023-05-23] MEDS: Aspirin 81 mg Enteric Coated Tablet PO SCH (09:04)
[2023-05-23] MEDS: Multivit, Therapeutic 1 TAB PO SCH (09:04)
[2023-05-23] MEDS: guaiFENesin ER 600 MG TAB PO SCH ×2 (09:04→21:20)
[2023-05-23] MEDS: cefTRIAXone\\ROCEPHIN 1 GM in Sodium Chloride 0.9% 100 ML IVPB SCH (09:20)
[2023-05-23] MEDS ORDERED: cefTRIAXone\\ROCEPHIN 1 GM in Sodium Chloride 0.9% 100 ML IVPB SCH (16:00)
[2023-05-23] MEDS ORDERED: Azithromycin 500 MG in Sodium Chloride 0.9% 250 ML 250 ML IVPB SCH (16:00)
[2023-05-23] MEDS: Benzonatate 100 MG CAP PO PRN (21:20)
[2023-05-23] MEDS: Acetaminophen 325 MG TAB PO PRN (21:20)
[2023-05-24] MEDS: Ipratropium/Albuterol 3 ML NEB NEB SCH ×6 (02:50→23:57)
[2023-05-24 05:38] LABS: #Monocytes 0.8 thou/uL (0.11-0.59); #Neutrophils 12.4 thou/uL (1.40-6.50); %Basophils 0.1 % (0.0-1.0); %Lymphocytes 5.2 % (21.0-51.0); %Monocytes 5.7 % (0.0-10.0); %Neutrophils 88.5 % (42.0-75.0); Hematocrit 34.9 % (42.0-52.0); Hemoglobin 10.5 g/dL (14.0-18.0); Mean Corpuscular HGB CONC 30.1 g/dL (32.0-36.0); Mean Corpuscular Hemoglobin 26.9 pg (27.0-31.0); Mean Corpuscular Volume 89.5 fl (78.0-98.0); Mean Platelet Volume 11.3 fL (7.4-10.4); Platelet Count 97 10x3/uL (130-400); RBC Distribution Width 16.4 % (11.5-14.5)
[2023-05-24 06:04] LABS: ALT (SGPT) 18 U/L (8-55); AST (SGOT) 27 U/L (5-34); Albumin 3.9 g/dL (3.4-4.8); Alkaline Phosphatase 102 U/L (40-110); Anion Gap 17 mmol/L (10-20); BUN (Urea Nitrogen) 33 mg/dL (8.4-25.7); Bilirubin, Total 1.8 mg/dL (0.2-1.2); Calc. Creatinine Clearance 81 mL/min (70-130); Carbon Dioxide 33 mmol/L (23-31); Chloride 91 mmol/L (98-107); Estimated GFR 56; Globulin 2.5 g/dL (2.4-3.5); Glucose 111 mg/dL (83-110); Potassium 3.7 mmol/L (3.5-5.1); Protein, Total 6.4 g/dL (5.8-8.1); Sodium 137 mmol/L (136-145)
[2023-05-24 08:39] LABS: Band 23 % (5-11); CellaVision Operator ID LAB.GE; Lymphocytes 5 % (21-51); Monocytes 4 % (0-10); Neutrophil 69 % (42-75); Platelet Adequacy Comment Platelets Decreased; Polychromasia SLIGHT = 2-3 cells HPF (0-2); Total Cell Count 102; Vacuoles SLIGHT
[2023-05-24] MEDS: Carvedilol 6.25 MG TAB PO SCH ×2 (09:23→18:16)
[2023-05-24] MEDS: Aspirin 81 mg Enteric Coated Tablet PO SCH (09:23)
[2023-05-24] MEDS: Amlodipine 5 MG TAB PO SCH ×2 (09:23→20:16)
[2023-05-24] MEDS: Metolazone 5 MG TAB PO SCH (09:24)
[2023-05-24] MEDS: guaiFENesin ER 600 MG TAB PO SCH ×2 (09:24→20:17)
[2023-05-24] MEDS: Bumetanide 1 MG TAB PO SCH (09:24)
[2023-05-24] MEDS: methylPREDNISolone Sod Succ 40 MG VIAL IVP SCH (09:24)
[2023-05-24] MEDS: Tamsulosin HCl 0.4 MG CAP PO SCH (09:24)
[2023-05-24] MEDS: cefTRIAXone\\ROCEPHIN 1 GM in Sodium Chloride 0.9% 100 ML IVPB SCH (09:24)
[2023-05-24] MEDS: Clopidogrel Bisulfate 75 MG TAB PO SCH (09:24)
[2023-05-24] MEDS: Multivit, Therapeutic 1 TAB PO SCH (09:24)
[2023-05-24] MEDS: Polyethylene Glycol 3350 17 GM Packet PO SCH (09:24)
[2023-05-24] MEDS: Fluticasone Propionate Nasal Spray 16 gm Bottle NASAL SCH (09:25)
[2023-05-24 09:41] LABS: INR-International Normal Ratio 1.2; Prothrombin Time 16.1 sec (12.0-14.7)
[2023-05-24 09:42] LABS: PTT 42.8 sec (22.9-36.1)
[2023-05-24] MEDS: Benzonatate 100 MG CAP PO PRN (20:16)
[2023-05-25] MEDS: Ipratropium/Albuterol 3 ML NEB NEB SCH ×2 (00:39→06:57)
[2023-05-25 05:08] LABS: #Monocytes 0.8 thou/uL (0.11-0.59); #Neutrophils 10.7 thou/uL (1.40-6.50); %Monocytes 6.6 % (0.0-10.0); %Neutrophils 86.8 % (42.0-75.0); Hematocrit 34.7 % (42.0-52.0); Hemoglobin 10.5 g/dL (14.0-18.0); Mean Corpuscular HGB CONC 30.3 g/dL (32.0-36.0); Mean Corpuscular Hemoglobin 26.9 pg (27.0-31.0); Mean Platelet Volume 10.7 fL (7.4-10.4); RBC Distribution Width 16.3 % (11.5-14.5); White Blood Cell (WBC) Count 12.3 10x3/uL (4.8-10.8)
[2023-05-25 05:36] LABS: ALT (SGPT) 21 U/L (8-55); AST (SGOT) 25 U/L (5-34); Albumin 3.8 g/dL (3.4-4.8); Alkaline Phosphatase 102 U/L (40-110); BUN (Urea Nitrogen) 40 mg/dL (8.4-25.7); Bilirubin, Total 1.5 mg/dL (0.2-1.2); Calc. Creatinine Clearance 69 mL/min (70-130); Calcium 9.1 mg/dL (7.8-10.44); Estimated GFR 47; Globulin 2.4 g/dL (2.4-3.5); Glucose 112 mg/dL (83-110); Protein, Total 6.2 g/dL (5.8-8.1)
[2023-05-25 05:38] LABS: Platelet Count 118 10x3/uL (130-400)
[2023-05-25 05:45] LABS: Anion Gap 21 mmol/L (10-20); Carbon Dioxide 33 mmol/L (23-31); Chloride 89 mmol/L (98-107); Potassium 3.6 mmol/L (3.5-5.1); Sodium 139 mmol/L (136-145)
[2023-05-25] MEDS: Carvedilol 6.25 MG TAB PO SCH (08:34)
[2023-05-25] MEDS: Clopidogrel Bisulfate 75 MG TAB PO SCH (08:34)
[2023-05-25] MEDS: guaiFENesin ER 600 MG TAB PO SCH (08:34)
[2023-05-25] MEDS: Multivit, Therapeutic 1 TAB PO SCH (08:34)
[2023-05-25] MEDS: Tamsulosin HCl 0.4 MG CAP PO SCH (08:35)
[2023-05-25] MEDS: Aspirin 81 mg Enteric Coated Tablet PO SCH (08:35)
[2023-05-25] MEDS: Amlodipine 5 MG TAB PO SCH (08:35)
[2023-05-25] MEDS: Bumetanide 1 MG TAB PO SCH (08:35)
[2023-05-25] MEDS: cefTRIAXone\\ROCEPHIN 1 GM in Sodium Chloride 0.9% 100 ML IVPB SCH (08:36)
[2023-05-25] MEDS: Fluticasone Propionate Nasal Spray 16 gm Bottle NASAL SCH (08:36)
[2023-05-25] MEDS: methylPREDNISolone Sod Succ 40 MG VIAL IVP SCH (08:36)
[2023-05-25] MEDS ORDERED: Polyethylene Glycol 3350 17 GM Packet PO SCH (09:00)
[2023-05-25] MEDS ORDERED: Ipratropium/Albuterol 3 ML NEB NEB PRN ×2 (09:07→09:26)
[2023-05-25] MEDS ORDERED: Mometasone 200 MCG/Formoterol 5 MCG 120 PUFF INHALER INH SCH ×2 (09:30→18:30)
[2023-05-25 11:55] VITALS: BP 126/70; TEMP 97.5
== END 2023-05-25 16:27 | disposition home or self-care (01) | DRG 189 ==
LOC: ERS 13:42 → 2SE 16:39
PROVIDERS: ADMIT Student in an Organized Health Care Education/Training Program; ATTEND Student in an Organized Health Care Education/Training Program
DX: J96.21 Acute and chronic respiratory failure with hypoxia (principal); J44.1 Chronic obstructive pulmonary disease with (acute) exacerbation; I50.32 Chronic diastolic (congestive) heart failure; I25.10 Atherosclerotic heart disease of native coronary artery without angina pectoris; I11.0 Hypertensive heart disease with heart failure; Z96.651 Presence of right artificial knee joint; G47.33 Obstructive sleep apnea (adult) (pediatric); D69.6 Thrombocytopenia, unspecified; N40.0 Benign prostatic hyperplasia without lower urinary tract symptoms; D64.9 Anemia, unspecified; Z20.822 Contact with and (suspected) exposure to COVID-19; Z98.890 Other specified postprocedural states; Z95.5 Presence of coronary angioplasty implant and graft; Z79.899 Other long term (current) drug therapy; Z79.82 Long term (current) use of aspirin; Z99.81 Dependence on supplemental oxygen; Z90.49 Acquired absence of other specified parts of digestive tract; Z95.0 Presence of cardiac pacemaker; Z87.891 Personal history of nicotine dependence
CPT/HCPCS: 36415; 71045; 80053; 82805; 83690; 83735; 83880; 84145; 84484; 85025; 85379; 85610; 85730; 87449; 87899; 93005; 94640; 96365; 96375; J0696; J1650; J1940; J1956; J2920; J3475; J3490; J7611; J7620

== ENCOUNTER 2023-08-02 11:01 | Inpatient (IN) | payer MEDICARE, OTHER ==
[2023-08-02 11:32] LABS: #Eosinphils 0.1 thou/uL (0.0-0.7); #Monocytes 0.6 thou/uL (0.11-0.59); #Neutrophils 4.6 thou/uL (1.40-6.50); %Basophils 0.2 % (0.0-1.0); %Eosinophils 1.5 % (0.0-10.0); %Lymphocytes 13.3 % (21.0-51.0); %Monocytes 9.3 % (0.0-10.0); %Neutrophils 75.2 % (42.0-75.0); Hematocrit 33.3 % (42.0-52.0); Hemoglobin 9.9 g/dL (14.0-18.0); Mean Corpuscular HGB CONC 29.7 g/dL (32.0-36.0); Mean Corpuscular Hemoglobin 27.7 pg (27.0-31.0); Mean Platelet Volume 9.8 fL (7.4-10.4); Platelet Count 124 10x3/uL (130-400); RBC Distribution Width 17.6 % (11.5-14.5); Red Blood Cell (RBC) Count 3.58 mill/uL (4.70-6.10); White Blood Cell (WBC) Count 6.2 10x3/uL (4.8-10.8)
[2023-08-02 11:55] LABS: ALT (SGPT) 19 U/L (8-55); AST (SGOT) 19 U/L (5-34); Albumin 3.7 g/dL (3.4-4.8); Alkaline Phosphatase 91 U/L (40-110); Anion Gap 13 mmol/L (10-20); BUN (Urea Nitrogen) 20 mg/dL (8.4-25.7); Bilirubin, Total 1.9 mg/dL (0.2-1.2); Calc. Creatinine Clearance 0 mL/min (70-130); Calcium 8.9 mg/dL (7.8-10.44); Carbon Dioxide 36 mmol/L (23-31); Chloride 93 mmol/L (98-107); Estimated GFR 74; Globulin 3.8 g/dL (2.4-3.5); Glucose 117 mg/dL (83-110); Lipase 7 U/L (8-78); Potassium 4.4 mmol/L (3.5-5.1); Protein, Total 7.5 g/dL (5.8-8.1); Sodium 138 mmol/L (136-145)
[2023-08-02 11:58] LABS: Troponin I Less than 0.010 ng/mL (< 0.028)
[2023-08-02] MEDS ORDERED: Ipratropium/Albuterol 3 ML NEB ONE (13:17)
[2023-08-02] MEDS ORDERED: Azithromycin 500 MG VIAL ONE (13:29)
[2023-08-02] MEDS ORDERED: cefTRIAXone (ROCEPHIN) 1 GM VIAL ONE (13:29)
[2023-08-02] MEDS ORDERED: methylPREDNISolone Sod Succ/PF 125 MG/2 ML VIAL ONE ×2 (13:29→13:30)
[2023-08-02] MEDS ORDERED: Furosemide 40 MG (4 mL) VIAL ONE (13:29)
[2023-08-02] MEDS ORDERED: Sodium Chloride 0.9% 100 ML ONE (13:32)
[2023-08-02] MEDS ORDERED: Acetaminophen 325 MG TAB PO PRN (14:07)
[2023-08-02] MEDS ORDERED: Ipratropium/Albuterol 3 ML NEB NEB PRN (14:17)
[2023-08-02 14:48] LABS: Troponin I Less than 0.010 ng/mL (< 0.028)
[2023-08-02] MEDS: Ipratropium/Albuterol 3 ML NEB NEB SCH ×2 (14:51→20:17)
[2023-08-02] MEDS ORDERED: Carvedilol 6.25 MG TAB ONE (15:56)
[2023-08-02] MEDS: Carvedilol 6.25 MG TAB PO SCH (16:16)
[2023-08-02 18:05] LABS: Troponin I Less than 0.010 ng/mL (< 0.028)
[2023-08-02] MEDS: guaiFENesin 200 MG TAB PO PRN (20:07)
[2023-08-02] MEDS: Amlodipine 5 MG TAB PO SCH (20:07)
[2023-08-02] MEDS: Ipratropium Bromide 2.5 ml Neb NEB SCH ×2 (22:38→23:10)
[2023-08-02] MEDS: Mometasone 200 MCG/Formoterol 5 MCG 120 PUFF INHALER INH SCH (22:39)
[2023-08-03 02:08] LABS: SARS-CoV-2 NAA Rapid Test Not Detected (NotDetected)
[2023-08-03 06:30] LABS: #Monocytes 0.3 thou/uL (0.11-0.59); #Neutrophils 5.4 thou/uL (1.40-6.50); %Lymphocytes 9.7 % (21.0-51.0); %Monocytes 4.3 % (0.0-10.0); %Neutrophils 85.4 % (42.0-75.0); Hematocrit 31.5 % (42.0-52.0); Hemoglobin 9.3 g/dL (14.0-18.0); Mean Corpuscular HGB CONC 29.5 g/dL (32.0-36.0); Mean Corpuscular Hemoglobin 27.6 pg (27.0-31.0); Mean Corpuscular Volume 93.5 fl (78.0-98.0); Mean Platelet Volume 10.3 fL (7.4-10.4); Platelet Count 123 10x3/uL (130-400); RBC Distribution Width 17.6 % (11.5-14.5); Red Blood Cell (RBC) Count 3.37 mill/uL (4.70-6.10); White Blood Cell (WBC) Count 6.3 10x3/uL (4.8-10.8)
[2023-08-03] MEDS: Mometasone 200 MCG/Formoterol 5 MCG 120 PUFF INHALER INH SCH ×2 (06:31→19:17)
[2023-08-03] MEDS: Ipratropium/Albuterol 3 ML NEB NEB SCH ×4 (06:37→19:17)
[2023-08-03] MEDS: Ipratropium Bromide 2.5 ml Neb NEB SCH ×4 (06:37→23:08)
[2023-08-03 07:37] LABS: BUN (Urea Nitrogen) 27 mg/dL (8.4-25.7); Calc. Creatinine Clearance 88 mL/min (70-130); Calcium 8.7 mg/dL (7.8-10.44); Estimated GFR 58; Glucose 147 mg/dL (83-110)
[2023-08-03 07:56] LABS: Anion Gap 16 mmol/L (10-20); Carbon Dioxide 32 mmol/L (23-31); Chloride 93 mmol/L (98-107); Potassium 4.1 mmol/L (3.5-5.1); Sodium 137 mmol/L (136-145)
[2023-08-03] MEDS: Fluticasone Propionate Nasal Spray 16 gm Bottle NASAL SCH (08:50)
[2023-08-03] MEDS: predniSONE 20 MG TAB PO SCH (08:51)
[2023-08-03] MEDS: Enoxaparin 40 MG (0.4 mL) SYRINGE SC SCH (08:51)
[2023-08-03] MEDS: Aspirin 81 mg Enteric Coated Tablet PO SCH (08:51)
[2023-08-03] MEDS: Clopidogrel Bisulfate 75 MG TAB PO SCH (08:52)
[2023-08-03] MEDS: Amlodipine 5 MG TAB PO SCH ×2 (08:52→19:53)
[2023-08-03] MEDS: Azithromycin 250 MG TAB PO SCH (08:52)
[2023-08-03] MEDS: Tamsulosin HCl 0.4 MG CAP PO SCH (08:52)
[2023-08-03] MEDS: Carvedilol 6.25 MG TAB PO SCH ×2 (08:52→16:53)
[2023-08-03] MEDS ORDERED: Furosemide 40 MG (4 mL) VIAL SLOW IVP SCH (09:00)
[2023-08-03] MEDS: Furosemide 40 MG TAB PO SCH ×2 (09:28→14:31)
[2023-08-03] MEDS: guaiFENesin 200 MG TAB PO PRN (19:53)
[2023-08-04 05:14] LABS: #Monocytes 0.8 thou/uL (0.11-0.59); #Neutrophils 6.6 thou/uL (1.40-6.50); %Basophils 0.1 % (0.0-1.0); %Eosinophils 0.1 % (0.0-10.0); %Lymphocytes 11.6 % (21.0-51.0); %Neutrophils 78.6 % (42.0-75.0); Hemoglobin 9.3 g/dL (14.0-18.0); Mean Corpuscular HGB CONC 29.1 g/dL (32.0-36.0); Mean Corpuscular Hemoglobin 27.2 pg (27.0-31.0); Mean Corpuscular Volume 93.6 fl (78.0-98.0); Mean Platelet Volume 9.8 fL (7.4-10.4); Platelet Count 124 10x3/uL (130-400); RBC Distribution Width 18.1 % (11.5-14.5); Red Blood Cell (RBC) Count 3.42 mill/uL (4.70-6.10); White Blood Cell (WBC) Count 8.4 10x3/uL (4.8-10.8)
[2023-08-04 05:38] LABS: Anion Gap 13 mmol/L (10-20); BUN (Urea Nitrogen) 32 mg/dL (8.4-25.7); Calc. Creatinine Clearance 96 mL/min (70-130); Calcium 8.7 mg/dL (7.8-10.44); Carbon Dioxide 36 mmol/L (23-31); Chloride 94 mmol/L (98-107); Estimated GFR 64; Glucose 98 mg/dL (83-110); Potassium 4.2 mmol/L (3.5-5.1); Sodium 139 mmol/L (136-145)
[2023-08-04] MEDS: Mometasone 200 MCG/Formoterol 5 MCG 120 PUFF INHALER INH SCH ×2 (07:35→18:55)
[2023-08-04] MEDS: Ipratropium/Albuterol 3 ML NEB NEB SCH ×4 (07:39→23:54)
[2023-08-04] MEDS: Ipratropium Bromide 2.5 ml Neb NEB SCH (07:39)
[2023-08-04] MEDS ORDERED: Furosemide 100 MG (10 mL) VIAL SLOW IVP SCH ×3 (08:45→19:30)
[2023-08-04] MEDS: Amlodipine 5 MG TAB PO SCH ×2 (10:07→20:11)
[2023-08-04] MEDS: Tamsulosin HCl 0.4 MG CAP PO SCH (10:07)
[2023-08-04] MEDS: Clopidogrel Bisulfate 75 MG TAB PO SCH (10:07)
[2023-08-04] MEDS: predniSONE 20 MG TAB PO SCH (10:07)
[2023-08-04] MEDS: Azithromycin 250 MG TAB PO SCH (10:08)
[2023-08-04] MEDS: Aspirin 81 mg Enteric Coated Tablet PO SCH (10:08)
[2023-08-04] MEDS: Carvedilol 6.25 MG TAB PO SCH ×2 (10:09→18:02)
[2023-08-04] MEDS: Enoxaparin 40 MG (0.4 mL) SYRINGE SC SCH (10:09)
[2023-08-04] MEDS: Fluticasone Propionate Nasal Spray 16 gm Bottle NASAL SCH (10:10)
[2023-08-04 18:00] LABS: Anion Gap 14 mmol/L (10-20); BUN (Urea Nitrogen) 36 mg/dL (8.4-25.7); Calc. Creatinine Clearance 84 mL/min (70-130); Calcium 8.9 mg/dL (7.8-10.44); Carbon Dioxide 33 mmol/L (23-31); Chloride 94 mmol/L (98-107); Estimated GFR 55; Glucose 128 mg/dL (83-110); Potassium 4.2 mmol/L (3.5-5.1); Sodium 137 mmol/L (136-145)
[2023-08-04] MEDS: guaiFENesin 200 MG TAB PO PRN (20:06)
[2023-08-04] MEDS: Benzonatate 100 MG CAP PO PRN (20:13)
[2023-08-05 05:31] LABS: #Monocytes 0.7 thou/uL (0.11-0.59); #Neutrophils 6.6 thou/uL (1.40-6.50); %Basophils 0.1 % (0.0-1.0); %Eosinophils 0.2 % (0.0-10.0); %Lymphocytes 10.8 % (21.0-51.0); %Monocytes 7.9 % (0.0-10.0); %Neutrophils 80.4 % (42.0-75.0); Hematocrit 32.6 % (42.0-52.0); Hemoglobin 9.5 g/dL (14.0-18.0); Mean Corpuscular HGB CONC 29.1 g/dL (32.0-36.0); Mean Corpuscular Hemoglobin 27.3 pg (27.0-31.0); Mean Corpuscular Volume 93.7 fl (78.0-98.0); Mean Platelet Volume 10.4 fL (7.4-10.4); Platelet Count 140 10x3/uL (130-400); RBC Distribution Width 18.1 % (11.5-14.5); Red Blood Cell (RBC) Count 3.48 mill/uL (4.70-6.10); White Blood Cell (WBC) Count 8.2 10x3/uL (4.8-10.8)
[2023-08-05 06:02] LABS: BUN (Urea Nitrogen) 37 mg/dL (8.4-25.7); Calc. Creatinine Clearance 80 mL/min (70-130); Calcium 8.7 mg/dL (7.8-10.44); Estimated GFR 52; Glucose 99 mg/dL (83-110)
[2023-08-05 06:10] LABS: Anion Gap 17 mmol/L (10-20); Carbon Dioxide 36 mmol/L (23-31); Chloride 92 mmol/L (98-107); Potassium 4.1 mmol/L (3.5-5.1); Sodium 141 mmol/L (136-145)
[2023-08-05] MEDS: Mometasone 200 MCG/Formoterol 5 MCG 120 PUFF INHALER INH SCH ×2 (07:14→19:11)
[2023-08-05] MEDS: Ipratropium/Albuterol 3 ML NEB NEB SCH ×3 (07:16→19:10)
[2023-08-05] MEDS ORDERED: Furosemide 100 MG (10 mL) VIAL SLOW IVP SCH (08:00)
[2023-08-05] MEDS: predniSONE 20 MG TAB PO SCH (08:24)
[2023-08-05] MEDS: Enoxaparin 40 MG (0.4 mL) SYRINGE SC SCH (08:24)
[2023-08-05] MEDS: Aspirin 81 mg Enteric Coated Tablet PO SCH (08:24)
[2023-08-05] MEDS: Fluticasone Propionate Nasal Spray 16 gm Bottle NASAL SCH (08:26)
[2023-08-05] MEDS: Carvedilol 6.25 MG TAB PO SCH ×2 (08:26→17:16)
[2023-08-05] MEDS: Tamsulosin HCl 0.4 MG CAP PO SCH (08:28)
[2023-08-05] MEDS: Clopidogrel Bisulfate 75 MG TAB PO SCH (09:46)
[2023-08-05 12:12] LABS: Chloride 91 mmol/L (98-107); Potassium 3.6 mmol/L (3.5-5.1); Sodium 139 mmol/L (136-145)
[2023-08-05 12:13] LABS: Calcium 8.6 mg/dL (7.8-10.44); Glucose 138 mg/dL (83-110)
[2023-08-05 12:23] LABS: BUN (Urea Nitrogen) 36 mg/dL (8.4-25.7); Calc. Creatinine Clearance 81 mL/min (70-130); Carbon Dioxide 38 mmol/L (23-31); Estimated GFR 54
[2023-08-05 13:47] LABS: Anion Gap 14 mmol/L (10-20)
[2023-08-05] MEDS ORDERED: Bumetanide 1 MG TAB PO SCH (17:00)
[2023-08-05] MEDS: Benzonatate 100 MG CAP PO PRN (21:55)
[2023-08-05] MEDS: guaiFENesin 200 MG TAB PO PRN (21:55)
[2023-08-05] MEDS: Amlodipine 5 MG TAB PO SCH (21:56)
[2023-08-06] MEDS: Ipratropium/Albuterol 3 ML NEB NEB SCH ×3 (00:26→12:40)
[2023-08-06 04:26] LABS: #Monocytes 0.9 thou/uL (0.11-0.59); #Neutrophils 5.4 thou/uL (1.40-6.50); %Basophils 0.1 % (0.0-1.0); %Eosinophils 0.5 % (0.0-10.0); %Lymphocytes 18.1 % (21.0-51.0); %Monocytes 11.1 % (0.0-10.0); %Neutrophils 69.3 % (42.0-75.0); Hematocrit 32.6 % (42.0-52.0); Hemoglobin 9.4 g/dL (14.0-18.0); Mean Corpuscular HGB CONC 28.8 g/dL (32.0-36.0); Mean Corpuscular Hemoglobin 26.9 pg (27.0-31.0); Mean Corpuscular Volume 93.1 fl (78.0-98.0); Platelet Count 128 10x3/uL (130-400); RBC Distribution Width 18.4 % (11.5-14.5); White Blood Cell (WBC) Count 7.9 10x3/uL (4.8-10.8)
[2023-08-06 05:03] LABS: BUN (Urea Nitrogen) 38 mg/dL (8.4-25.7); Calc. Creatinine Clearance 89 mL/min (70-130); Calcium 8.6 mg/dL (7.8-10.44); Estimated GFR 60; Glucose 92 mg/dL (83-110)
[2023-08-06 05:14] LABS: Anion Gap 19 mmol/L (10-20); Carbon Dioxide 34 mmol/L (23-31); Chloride 93 mmol/L (98-107); Potassium 3.8 mmol/L (3.5-5.1); Sodium 142 mmol/L (136-145)
[2023-08-06] MEDS: Mometasone 200 MCG/Formoterol 5 MCG 120 PUFF INHALER INH SCH (07:11)
[2023-08-06 07:26] VITALS: BMI 40.7
[2023-08-06] MEDS ORDERED: Bumetanide 1 MG TAB PO SCH ×2 (08:00→09:30)
[2023-08-06] MEDS: Enoxaparin 40 MG (0.4 mL) SYRINGE SC SCH (08:34)
[2023-08-06] MEDS: Fluticasone Propionate Nasal Spray 16 gm Bottle NASAL SCH (08:34)
[2023-08-06] MEDS: Tamsulosin HCl 0.4 MG CAP PO SCH (08:34)
[2023-08-06] MEDS: predniSONE 20 MG TAB PO SCH (08:34)
[2023-08-06] MEDS: Clopidogrel Bisulfate 75 MG TAB PO SCH (08:35)
[2023-08-06] MEDS: Amlodipine 5 MG TAB PO SCH (08:35)
[2023-08-06] MEDS: Carvedilol 6.25 MG TAB PO SCH (08:35)
[2023-08-06] MEDS: Aspirin 81 mg Enteric Coated Tablet PO SCH (08:35)
[2023-08-06] MEDS ORDERED: Polyethylene Glycol 3350 17 GM Packet PO SCH (09:00)
[2023-08-06 15:32] VITALS: BP 123/59; TEMP 97.6
== END 2023-08-06 16:17 | disposition home or self-care (01) | DRG 291 ==
LOC: ERS 11:01 → ERHOLD 13:29 → 2SW 18:48
PROVIDERS: ADMIT Student in an Organized Health Care Education/Training Program; ATTEND Student in an Organized Health Care Education/Training Program
DX: I11.0 Hypertensive heart disease with heart failure (principal); I50.33 Acute on chronic diastolic (congestive) heart failure; J96.21 Acute and chronic respiratory failure with hypoxia; J44.1 Chronic obstructive pulmonary disease with (acute) exacerbation; I25.10 Atherosclerotic heart disease of native coronary artery without angina pectoris; G47.33 Obstructive sleep apnea (adult) (pediatric); I48.91 Unspecified atrial fibrillation; N40.0 Benign prostatic hyperplasia without lower urinary tract symptoms; Z96.651 Presence of right artificial knee joint; D50.9 Iron deficiency anemia, unspecified; D69.6 Thrombocytopenia, unspecified; D64.9 Anemia, unspecified; Z99.81 Dependence on supplemental oxygen; Z79.899 Other long term (current) drug therapy; Z95.5 Presence of coronary angioplasty implant and graft; Z95.0 Presence of cardiac pacemaker; Z98.890 Other specified postprocedural states; Z90.49 Acquired absence of other specified parts of digestive tract; Z87.891 Personal history of nicotine dependence; Z11.52 Encounter for screening for COVID-19
CPT/HCPCS: 36415; 36416; 71045; 80048; 80053; 83690; 83880; 84145; 84484; 85025; 87040; 93005; 93306; 94640; 94760; 96365; 96367; 96375; J0456; J0696; J1650; J1940; J2930; J3490; J7512; J7620

== ENCOUNTER 2023-08-31 09:25 | Inpatient (IN) | payer MEDICARE, OTHER ==
[2023-08-31] MEDS ORDERED: Magnesium 2 GM/50 ML BAG (IN WATER) ONE (10:08)
[2023-08-31 10:39] LABS: #Eosinphils 0.1 thou/uL (0.0-0.7); #Monocytes 0.4 thou/uL (0.11-0.59); #Neutrophils 3.9 thou/uL (1.40-6.50); %Eosinophils 1.4 % (0.0-10.0); %Lymphocytes 15.9 % (21.0-51.0); %Monocytes 6.8 % (0.0-10.0); %Neutrophils 75.5 % (42.0-75.0); Hematocrit 32.7 % (42.0-52.0); Hemoglobin 9.5 g/dL (14.0-18.0); Mean Corpuscular HGB CONC 29.1 g/dL (32.0-36.0); Mean Corpuscular Hemoglobin 27.5 pg (27.0-31.0); Mean Corpuscular Volume 94.8 fl (78.0-98.0); Mean Platelet Volume 10.4 fL (7.4-10.4); Platelet Count 104 10x3/uL (130-400); RBC Distribution Width 18.1 % (11.5-14.5); Red Blood Cell (RBC) Count 3.45 mill/uL (4.70-6.10); White Blood Cell (WBC) Count 5.2 10x3/uL (4.8-10.8)
[2023-08-31 11:05] LABS: ALT (SGPT) 13 U/L (8-55); AST (SGOT) 14 U/L (5-34); Albumin 3.8 g/dL (3.4-4.8); Alkaline Phosphatase 87 U/L (40-110); BUN (Urea Nitrogen) 16 mg/dL (8.4-25.7); Bilirubin, Total 1.8 mg/dL (0.2-1.2); Calc. Creatinine Clearance 0 mL/min (70-130); Calcium 9.2 mg/dL (7.8-10.44); Estimated GFR 63; Globulin 3.3 g/dL (2.4-3.5); Glucose 116 mg/dL (83-110); Protein, Total 7.1 g/dL (5.8-8.1); Troponin I Less than 0.010 ng/mL (< 0.028)
[2023-08-31 11:14] LABS: Anion Gap 14 mmol/L (10-20); Carbon Dioxide 38 mmol/L (23-31); Chloride 93 mmol/L (98-107); Potassium 3.9 mmol/L (3.5-5.1); Sodium 141 mmol/L (136-145)
[2023-08-31] MEDS ORDERED: Furosemide 40 MG (4 mL) VIAL ONE (13:23)
[2023-08-31] MEDS ORDERED: Calcium Carbonate 500 MG ChewTAB PO PRN (13:42)
[2023-08-31] MEDS ORDERED: Acetaminophen 325 MG TAB PO PRN (13:42)
[2023-08-31] MEDS ORDERED: Acetaminophen 650 MG Suppository PR PRN (13:42)
[2023-08-31] MEDS ORDERED: Guaifenesin DM 100-10/5 ML UDCUP PO PRN (13:42)
[2023-08-31] MEDS ORDERED: Bisacodyl 10 MG SUPP PR PRN (13:42)
[2023-08-31] MEDS ORDERED: Bisacodyl 5 MG TAB PO PRN (13:42)
[2023-08-31] MEDS ORDERED: Senokot S 8.6-50 MG TAB PO PRN (13:42)
[2023-08-31] MEDS ORDERED: Ondansetron PF 4 MG/2 ML Vial IVP PRN (13:42)
[2023-08-31] MEDS ORDERED: Ondansetron ODT 4 MG TAB PO PRN (13:42)
[2023-08-31 19:11] VITALS: BMI 38.9
[2023-08-31] MEDS: Ipratropium/Albuterol 3 ML NEB NEB SCH (19:19)
[2023-08-31] MEDS: Amlodipine 5 MG TAB PO SCH (21:47)
[2023-08-31] MEDS: Potassium Chloride 20 MEQ TAB PO SCH (21:47)
[2023-08-31] MEDS: Carvedilol 6.25 MG TAB PO SCH (21:48)
[2023-08-31] MEDS: Benzonatate 100 MG CAP PO PRN (21:48)
[2023-08-31] MEDS ORDERED: Furosemide 100 MG (10 mL) VIAL SLOW IVP SCH (23:45)
[2023-09-01] MEDS ORDERED: Furosemide 20 MG TAB PO SCH (00:15)
[2023-09-01] MEDS: Ipratropium/Albuterol 3 ML NEB NEB SCH ×5 (01:49→23:59)
[2023-09-01 04:31] LABS: #Monocytes 0.3 thou/uL (0.11-0.59); #Neutrophils 4.8 thou/uL (1.40-6.50); %Lymphocytes 8.7 % (21.0-51.0); %Neutrophils 84.9 % (42.0-75.0); Hemoglobin 9.1 g/dL (14.0-18.0); Mean Corpuscular HGB CONC 29.4 g/dL (32.0-36.0); Mean Corpuscular Hemoglobin 26.8 pg (27.0-31.0); Mean Platelet Volume 10.9 fL (7.4-10.4); Platelet Count 107 10x3/uL (130-400); RBC Distribution Width 17.7 % (11.5-14.5); Red Blood Cell (RBC) Count 3.39 mill/uL (4.70-6.10); White Blood Cell (WBC) Count 5.6 10x3/uL (4.8-10.8)
[2023-09-01 04:36] LABS: Mean Corpuscular Volume 91.4 fl (78.0-98.0)
[2023-09-01 04:58] LABS: ALT (SGPT) 13 U/L (8-55); AST (SGOT) 14 U/L (5-34); Albumin 3.5 g/dL (3.4-4.8); Alkaline Phosphatase 82 U/L (40-110); BUN (Urea Nitrogen) 20 mg/dL (8.4-25.7); Bilirubin, Total 1.6 mg/dL (0.2-1.2); Calc. Creatinine Clearance 96 mL/min (70-130); Calcium 9.2 mg/dL (7.8-10.44); Estimated GFR 70; Globulin 3.1 g/dL (2.4-3.5); Glucose 118 mg/dL (83-110); Protein, Total 6.6 g/dL (5.8-8.1)
[2023-09-01 05:07] LABS: Anion Gap 17 mmol/L (10-20); Carbon Dioxide 35 mmol/L (23-31); Chloride 94 mmol/L (98-107); Sodium 142 mmol/L (136-145)
[2023-09-01] MEDS ORDERED: Furosemide 40 MG (4 mL) VIAL SLOW IVP SCH ×3 (06:00→15:00)
[2023-09-01] MEDS: Carvedilol 6.25 MG TAB PO SCH ×2 (08:29→18:05)
[2023-09-01] MEDS: Potassium Chloride 20 MEQ TAB PO SCH ×2 (08:30→23:38)
[2023-09-01] MEDS: Clopidogrel Bisulfate 75 MG TAB PO SCH (08:30)
[2023-09-01] MEDS: Aspirin 81 mg Enteric Coated Tablet PO SCH (08:30)
[2023-09-01] MEDS: Amlodipine 5 MG TAB PO SCH ×2 (08:31→23:38)
[2023-09-01] MEDS: Benzonatate 100 MG CAP PO PRN ×2 (08:31→23:38)
[2023-09-01] MEDS: Tamsulosin HCl 0.4 MG CAP PO SCH (08:31)
[2023-09-01] MEDS: Enoxaparin 40 MG (0.4 mL) SYRINGE SC SCH (08:31)
[2023-09-01] MEDS ORDERED: Fluticasone Propionate Nasal Spray 16 gm Bottle NASAL PRN (09:00)
[2023-09-01] MEDS ORDERED: Benzocaine/Menthol 1 LOZ LOZ PO PRN (22:25)
[2023-09-01] MEDS ORDERED: Furosemide 20 MG (2 mL) VIAL SLOW IVP SCH (22:30)
[2023-09-01] MEDS ORDERED: Melatonin 3 MG TAB PO SCH (22:30)
[2023-09-02 05:37] LABS: #Monocytes 0.7 thou/uL (0.11-0.59); #Neutrophils 4.2 thou/uL (1.40-6.50); %Basophils 0.2 % (0.0-1.0); %Eosinophils 0.7 % (0.0-10.0); %Lymphocytes 17.4 % (21.0-51.0); %Monocytes 11.4 % (0.0-10.0); Hematocrit 31.2 % (42.0-52.0); Mean Corpuscular HGB CONC 28.8 g/dL (32.0-36.0); Mean Corpuscular Hemoglobin 26.8 pg (27.0-31.0); Mean Corpuscular Volume 92.9 fl (78.0-98.0); Mean Platelet Volume 10.2 fL (7.4-10.4); RBC Distribution Width 18.1 % (11.5-14.5); Red Blood Cell (RBC) Count 3.36 mill/uL (4.70-6.10)
[2023-09-02 06:07] LABS: ALT (SGPT) 16 U/L (8-55); AST (SGOT) 17 U/L (5-34); Albumin 3.5 g/dL (3.4-4.8); Alkaline Phosphatase 85 U/L (40-110); BUN (Urea Nitrogen) 31 mg/dL (8.4-25.7); Bilirubin, Total 1.5 mg/dL (0.2-1.2); Calc. Creatinine Clearance 79 mL/min (70-130); Calcium 9.1 mg/dL (7.8-10.44); Estimated GFR 55; Globulin 2.9 g/dL (2.4-3.5); Glucose 98 mg/dL (83-110); Protein, Total 6.4 g/dL (5.8-8.1)
[2023-09-02 06:13] LABS: Platelet Count 101 10x3/uL (130-400)
[2023-09-02 06:16] LABS: Anion Gap 17 mmol/L (10-20); Carbon Dioxide 32 mmol/L (23-31); Chloride 94 mmol/L (98-107); Potassium 4.4 mmol/L (3.5-5.1); Sodium 139 mmol/L (136-145)
[2023-09-02] MEDS: Ipratropium/Albuterol 3 ML NEB NEB SCH ×4 (06:43→23:01)
[2023-09-02 08:32] LABS: Platelet Adequacy Comment Platelets Normal
[2023-09-02] MEDS: Tamsulosin HCl 0.4 MG CAP PO SCH (09:03)
[2023-09-02] MEDS: Clopidogrel Bisulfate 75 MG TAB PO SCH (09:03)
[2023-09-02] MEDS: Carvedilol 6.25 MG TAB PO SCH ×2 (09:03→17:46)
[2023-09-02] MEDS: Amlodipine 5 MG TAB PO SCH ×2 (09:03→22:28)
[2023-09-02] MEDS: Aspirin 81 mg Enteric Coated Tablet PO SCH (09:03)
[2023-09-02] MEDS: Enoxaparin 40 MG (0.4 mL) SYRINGE SC SCH (09:04)
[2023-09-02] MEDS: Potassium Chloride 20 MEQ TAB PO SCH ×2 (09:05→21:28)
[2023-09-02] MEDS ORDERED: Furosemide 20 MG (2 mL) VIAL SLOW IVP SCH (12:30)
[2023-09-02] MEDS ORDERED: Polyethylene Glycol 3350 17 GM Packet PO SCH (13:30)
[2023-09-03 04:49] LABS: #Eosinphils 0.1 thou/uL (0.0-0.7); #Monocytes 0.6 thou/uL (0.11-0.59); #Neutrophils 3.5 thou/uL (1.40-6.50); %Eosinophils 1.3 % (0.0-10.0); %Lymphocytes 18.4 % (21.0-51.0); %Monocytes 12.1 % (0.0-10.0); %Neutrophils 67.8 % (42.0-75.0); Hematocrit 31.9 % (42.0-52.0); Hemoglobin 9.2 g/dL (14.0-18.0); Mean Corpuscular HGB CONC 28.8 g/dL (32.0-36.0); Mean Corpuscular Hemoglobin 26.6 pg (27.0-31.0); Mean Corpuscular Volume 92.2 fl (78.0-98.0); Mean Platelet Volume 11.1 fL (7.4-10.4); Platelet Count 110 10x3/uL (130-400); RBC Distribution Width 18.2 % (11.5-14.5); Red Blood Cell (RBC) Count 3.46 mill/uL (4.70-6.10); White Blood Cell (WBC) Count 5.2 10x3/uL (4.8-10.8)
[2023-09-03 05:53] LABS: ALT (SGPT) 18 U/L (8-55); AST (SGOT) 18 U/L (5-34); Albumin 3.6 g/dL (3.4-4.8); Alkaline Phosphatase 80 U/L (40-110); BUN (Urea Nitrogen) 36 mg/dL (8.4-25.7); Bilirubin, Total 1.7 mg/dL (0.2-1.2); Calc. Creatinine Clearance 80 mL/min (70-130); Calcium 9.2 mg/dL (7.8-10.44); Estimated GFR 56; Glucose 84 mg/dL (83-110); Protein, Total 6.6 g/dL (5.8-8.1)
[2023-09-03 06:04] LABS: Anion Gap 17 mmol/L (10-20); Carbon Dioxide 33 mmol/L (23-31); Chloride 93 mmol/L (98-107); Potassium 4.6 mmol/L (3.5-5.1); Sodium 138 mmol/L (136-145)
[2023-09-03] MEDS: Ipratropium/Albuterol 3 ML NEB NEB SCH ×4 (06:43→23:36)
[2023-09-03] MEDS ORDERED: FLU VACC QS2023(65UP)/MF59C/PF 60 MCG/0.5 ML SYRINGE IM ONE (09:00)
[2023-09-03] MEDS: Aspirin 81 mg Enteric Coated Tablet PO SCH (09:15)
[2023-09-03] MEDS: Enoxaparin 40 MG (0.4 mL) SYRINGE SC SCH (09:15)
[2023-09-03] MEDS: Tamsulosin HCl 0.4 MG CAP PO SCH (09:15)
[2023-09-03] MEDS: Potassium Chloride 20 MEQ TAB PO SCH ×2 (09:16→21:45)
[2023-09-03] MEDS: Amlodipine 5 MG TAB PO SCH ×2 (09:16→21:46)
[2023-09-03] MEDS: Carvedilol 6.25 MG TAB PO SCH ×2 (09:16→17:40)
[2023-09-03] MEDS: Polyethylene Glycol 3350 17 GM Packet PO SCH (09:16)
[2023-09-03] MEDS: Clopidogrel Bisulfate 75 MG TAB PO SCH (09:17)
[2023-09-03] MEDS: Bumetanide 1 MG TAB PO SCH ×2 (15:30→21:45)
[2023-09-04 04:32] LABS: Hematocrit 30.6 % (42.0-52.0); Hemoglobin 8.9 g/dL (14.0-18.0); Mean Corpuscular HGB CONC 29.1 g/dL (32.0-36.0); Mean Corpuscular Hemoglobin 26.6 pg (27.0-31.0); Mean Corpuscular Volume 91.3 fl (78.0-98.0); Mean Platelet Volume 10.7 fL (7.4-10.4); Platelet Count 105 10x3/uL (130-400); RBC Distribution Width 18.1 % (11.5-14.5); Red Blood Cell (RBC) Count 3.35 mill/uL (4.70-6.10); White Blood Cell (WBC) Count 5.1 10x3/uL (4.8-10.8)
[2023-09-04 04:36] LABS: Delete Auto Diff?? YES
[2023-09-04 04:59] LABS: ALT (SGPT) 27 U/L (8-55); AST (SGOT) 22 U/L (5-34); Albumin 3.3 g/dL (3.4-4.8); Alkaline Phosphatase 80 U/L (40-110); BUN (Urea Nitrogen) 32 mg/dL (8.4-25.7); Bilirubin, Total 1.9 mg/dL (0.2-1.2); Calc. Creatinine Clearance 89 mL/min (70-130); Estimated GFR 64; Globulin 3.1 g/dL (2.4-3.5); Glucose 119 mg/dL (83-110); Protein, Total 6.4 g/dL (5.8-8.1)
[2023-09-04 05:08] LABS: Anion Gap 16 mmol/L (10-20); Carbon Dioxide 33 mmol/L (23-31); Chloride 95 mmol/L (98-107); Potassium 4.2 mmol/L (3.5-5.1); Sodium 140 mmol/L (136-145)
[2023-09-04] MEDS ORDERED: Lactulose 20 GM (30 mL) UDCUP PO SCH (07:15)
[2023-09-04] MEDS: Ipratropium/Albuterol 3 ML NEB NEB PRN ×2 (07:36→14:07)
[2023-09-04] MEDS: Potassium Chloride 20 MEQ TAB PO SCH (09:29)
[2023-09-04] MEDS: Aspirin 81 mg Enteric Coated Tablet PO SCH (09:29)
[2023-09-04] MEDS: Amlodipine 5 MG TAB PO SCH (09:29)
[2023-09-04] MEDS: Carvedilol 6.25 MG TAB PO SCH ×2 (09:30→17:02)
[2023-09-04] MEDS: Clopidogrel Bisulfate 75 MG TAB PO SCH (09:30)
[2023-09-04] MEDS: Polyethylene Glycol 3350 17 GM Packet PO SCH (09:30)
[2023-09-04] MEDS: Enoxaparin 40 MG (0.4 mL) SYRINGE SC SCH (09:30)
[2023-09-04] MEDS: Tamsulosin HCl 0.4 MG CAP PO SCH (09:30)
[2023-09-04] MEDS: Bumetanide 1 MG TAB PO SCH ×2 (09:30→17:02)
[2023-09-04 12:55] VITALS: TEMP 97.2
[2023-09-04] MEDS: Ipratropium/Albuterol 3 ML NEB NEB SCH (14:09)
[2023-09-04 17:07] VITALS: BP 119/59
== END 2023-09-04 17:55 | disposition home health service (06) | DRG 291 ==
LOC: ERS 09:25 → ERHOLD 12:16 → 2NO 18:31 → OBSVTOIN 09-01 09:43
PROVIDERS: ADMIT Family Medicine; ATTEND Family Medicine
DX: I11.0 Hypertensive heart disease with heart failure (principal); I50.33 Acute on chronic diastolic (congestive) heart failure; J96.21 Acute and chronic respiratory failure with hypoxia; J44.1 Chronic obstructive pulmonary disease with (acute) exacerbation; I25.10 Atherosclerotic heart disease of native coronary artery without angina pectoris; Z95.5 Presence of coronary angioplasty implant and graft; I48.91 Unspecified atrial fibrillation; G47.33 Obstructive sleep apnea (adult) (pediatric); N40.0 Benign prostatic hyperplasia without lower urinary tract symptoms; Z96.651 Presence of right artificial knee joint; D64.9 Anemia, unspecified; Z79.82 Long term (current) use of aspirin; Z79.899 Other long term (current) drug therapy; Z95.0 Presence of cardiac pacemaker; Z87.891 Personal history of nicotine dependence; E66.01 Morbid (severe) obesity due to excess calories; Z68.38 Body mass index [BMI] 38.0-38.9, adult; I89.0 Lymphedema, not elsewhere classified
CPT/HCPCS: 36415; 71045; 80053; 83880; 84145; 84484; 85025; 93005; 93970; 94640; 96365; 96372; 96375; G0378; J1650; J1940; J3475; J7620

== ENCOUNTER 2023-09-10 06:33 | Inpatient (IN) | payer MEDICARE, OTHER ==
[2023-09-10] MEDS ORDERED: Furosemide 40 MG (4 mL) VIAL ONE (06:56)
[2023-09-10 07:10] LABS: #Eosinphils 0.1 thou/uL (0.0-0.7); #Monocytes 0.6 thou/uL (0.11-0.59); #Neutrophils 3.2 thou/uL (1.40-6.50); %Basophils 0.2 % (0.0-1.0); %Eosinophils 1.5 % (0.0-10.0); %Lymphocytes 16.4 % (21.0-51.0); %Monocytes 12.1 % (0.0-10.0); %Neutrophils 68.9 % (42.0-75.0); Hematocrit 31.2 % (42.0-52.0); Hemoglobin 8.9 g/dL (14.0-18.0); Mean Corpuscular HGB CONC 28.5 g/dL (32.0-36.0); Mean Corpuscular Hemoglobin 27.1 pg (27.0-31.0); Mean Corpuscular Volume 95.1 fl (78.0-98.0); Mean Platelet Volume 10.3 fL (7.4-10.4); RBC Distribution Width 18.5 % (11.5-14.5); Red Blood Cell (RBC) Count 3.28 mill/uL (4.70-6.10); White Blood Cell (WBC) Count 4.7 10x3/uL (4.8-10.8)
[2023-09-10 07:20] LABS: Platelet Count 78 10x3/uL (130-400)
[2023-09-10] MEDS ORDERED: cefTRIAXone (ROCEPHIN) 2 GM VIAL ONE (07:34)
[2023-09-10] MEDS ORDERED: Sodium Chloride 0.9% 100 ML ONE (07:34)
[2023-09-10 07:38] LABS: Troponin I Less than 0.010 ng/mL (< 0.028)
[2023-09-10 07:42] LABS: ALT (SGPT) 36 U/L (8-55); AST (SGOT) 22 U/L (5-34); Albumin 3.6 g/dL (3.4-4.8); Alkaline Phosphatase 95 U/L (40-110); BUN (Urea Nitrogen) 29 mg/dL (8.4-25.7); Bilirubin, Total 1.9 mg/dL (0.2-1.2); Calc. Creatinine Clearance 0 mL/min (70-130); Calcium 8.9 mg/dL (7.8-10.44); Estimated GFR 67; Glucose 74 mg/dL (83-110); Protein, Total 6.6 g/dL (5.8-8.1)
[2023-09-10 07:46] LABS: Anisocytosis SLIGHT = 6-15 cells HPF (0-5); Burr Cells SLIGHT = 2-5 cells HPF (0-1); CellaVision Operator ID LAB.KW3; Hypochromia MODERATE=16-30 cells HPF (0-5); Microcytosis SLIGHT = 6-15 cells HPF (0-5); Platelet Adequacy Comment Platelets Decreased; Poikilocytosis MODERATE=16-30 cells HPF (0-5); Polychromasia SLIGHT = 2-3 cells HPF (0-2)
[2023-09-10 07:51] LABS: Anion Gap 18 mmol/L (10-20); Carbon Dioxide 32 mmol/L (23-31); Chloride 96 mmol/L (98-107); Sodium 142 mmol/L (136-145)
[2023-09-10 08:01] LABS: SARS-CoV-2 NAA Rapid Test Not Detected (NotDetected)
[2023-09-10] MEDS ORDERED: Vancomycin (BATCH) 2 GM/500 ML BAG ONE (08:36)
[2023-09-10 09:05] LABS: Actual Bicarbonate (HCO3v) 35.6 mEq/L (22-28); Analyzer IN Cardio ER; Base Excess 9.7 mEq/L (-2.0 to +3.0); Calcium, Ionized (venous) 1.07 mmol/L (1.16-1.32); Chloride (VBG) 96 mmol/L (98-106); Hematocrit-VBG 30 % (42.0-52.0); Hemoglobin (Hb) 10.3 g/dL (12.6-17.4); Potassium (VBG) 4.33 mmol/L (3.70-5.30); Sodium 140 mmol/L (133-146); pH (venous) 7.424 (7.32-7.43)
[2023-09-10] MEDS ORDERED: Ipratropium/Albuterol 3 ML NEB NEB PRN (09:11)
[2023-09-10] MEDS ORDERED: Acetaminophen 325 MG TAB PO PRN (09:11)
[2023-09-10] MEDS ORDERED: Benzonatate 100 MG CAP PO PRN (09:11)
[2023-09-10] MEDS ORDERED: methylPREDNISolone Sod Succ/PF 125 MG/2 ML VIAL ONE (11:38)
[2023-09-10] MEDS ORDERED: Enoxaparin 40 MG (0.4 mL) SYRINGE ONE (11:38)
[2023-09-10] MEDS: Enoxaparin 40 MG (0.4 mL) SYRINGE SC SCH (11:46)
[2023-09-10] MEDS: methylPREDNISolone Sod Succ/PF 125 MG/2 ML VIAL IVP SCH (11:47)
[2023-09-10] MEDS ORDERED: Ipratropium Bromide 2.5 ml Neb ONE (12:03)
[2023-09-10] MEDS: Ipratropium Bromide 2.5 ml Neb NEB SCH (12:07)
[2023-09-10] MEDS ORDERED: Carvedilol 6.25 MG TAB PO SCH (17:00)
[2023-09-10] MEDS: Empagliflozin 10 MG TAB PO SCH (18:27)
[2023-09-10] MEDS: Bumetanide 1 MG TAB PO SCH (18:35)
[2023-09-10] MEDS: Mometasone 200 MCG/Formoterol 5 MCG 120 PUFF INHALER INH SCH (20:02)
[2023-09-10] MEDS ORDERED: Amlodipine 10 MG TAB PO SCH (21:00)
[2023-09-10] MEDS ORDERED: Polyethylene Glycol 3350 17 GM Packet PO PRN (23:37)
[2023-09-10] MEDS ORDERED: Senokot 8.6 MG TAB PO PRN (23:37)
[2023-09-10] MEDS: Amlodipine 5 MG TAB PO SCH (23:40)
[2023-09-10] MEDS: Doxycycline 100 MG CAP PO SCH (23:40)
[2023-09-10] MEDS: Metoprolol Tartrate 25 MG TAB PO SCH (23:40)
[2023-09-10] MEDS: Potassium Chloride 20 MEQ TAB PO SCH (23:40)
[2023-09-11 04:13] LABS: #Monocytes 0.1 thou/uL (0.11-0.59); #Neutrophils 3.5 thou/uL (1.40-6.50); %Monocytes 1.5 % (0.0-10.0); %Neutrophils 88.5 % (42.0-75.0); Hematocrit 31.5 % (42.0-52.0); Hemoglobin 8.9 g/dL (14.0-18.0); Mean Corpuscular HGB CONC 28.3 g/dL (32.0-36.0); Mean Corpuscular Hemoglobin 26.8 pg (27.0-31.0); Mean Corpuscular Volume 94.9 fl (78.0-98.0); Mean Platelet Volume 11.5 fL (7.4-10.4); RBC Distribution Width 18.4 % (11.5-14.5); Red Blood Cell (RBC) Count 3.32 mill/uL (4.70-6.10)
[2023-09-11 04:14] LABS: Platelet Count 72 10x3/uL (130-400)
[2023-09-11 04:34] LABS: ALT (SGPT) 37 U/L (8-55); AST (SGOT) 25 U/L (5-34); Albumin 3.5 g/dL (3.4-4.8); Alkaline Phosphatase 92 U/L (40-110); BUN (Urea Nitrogen) 32 mg/dL (8.4-25.7); Bilirubin, Total 1.2 mg/dL (0.2-1.2); Calc. Creatinine Clearance 82 mL/min (70-130); Calcium 8.9 mg/dL (7.8-10.44); Estimated GFR 58; Globulin 3.1 g/dL (2.4-3.5); Glucose 133 mg/dL (83-110); Protein, Total 6.6 g/dL (5.8-8.1)
[2023-09-11 04:43] LABS: Anion Gap 15 mmol/L (10-20); Carbon Dioxide 36 mmol/L (23-31); Chloride 97 mmol/L (98-107); Potassium 4.4 mmol/L (3.5-5.1); Sodium 144 mmol/L (136-145)
[2023-09-11 07:32] LABS: Legionella Urinary Ag Negative (Negative); Strep pneumo Urine Ag NEGATIVE (NEGATIVE)
[2023-09-11] MEDS: Multivit, Therapeutic 1 TAB PO SCH (08:36)
[2023-09-11] MEDS: predniSONE 20 MG TAB PO SCH (08:36)
[2023-09-11] MEDS: Aspirin Chewable 81 MG TAB PO SCH (08:36)
[2023-09-11] MEDS: Clopidogrel Bisulfate 75 MG TAB PO SCH (08:36)
[2023-09-11] MEDS: Polyethylene Glycol 3350 17 GM Packet PO SCH (08:36)
[2023-09-11] MEDS: Tamsulosin HCl 0.4 MG CAP PO SCH (08:37)
[2023-09-11] MEDS: guaiFENesin ER 600 MG TAB PO SCH (08:37)
[2023-09-11] MEDS: Empagliflozin 10 MG TAB PO SCH (08:37)
[2023-09-11] MEDS: Fluticasone Propionate Nasal Spray 16 gm Bottle NASAL SCH (08:38)
[2023-09-11] MEDS: FLU VACC QS2023(65UP)/MF59C/PF 60 MCG/0.5 ML SYRINGE IM ONE (08:38)
[2023-09-11 08:48] VITALS: BP 89/49
[2023-09-11] MEDS ORDERED: Fluticasone Propionate Nasal Spray 16 gm Bottle NASAL SCH (09:00)
[2023-09-11] MEDS ORDERED: Non-Formulary Item 1 EACH (Tiotropium Bromide 4 GM Inhaler) IH SCH (09:00)
[2023-09-11] MEDS ORDERED: Non-Formulary Item 1 EACH (Aspirin [Vazalore] 81 MG Capsule) PO SCH (09:00)
[2023-09-11] MEDS ORDERED: Non-Formulary Item 1 EACH (Multivitamin [Multivitamins] 1 CAP Capsule) PO SCH (09:00)
[2023-09-11 11:26] VITALS: BMI 38.7
[2023-09-12 07:39] LABS: ALT (SGPT) 32 U/L (8-55); AST (SGOT) 20 U/L (5-34); Albumin 3.6 g/dL (3.4-4.8); Alkaline Phosphatase 90 U/L (40-110); Anion Gap 12 mmol/L (10-20); BUN (Urea Nitrogen) 37 mg/dL (8.4-25.7); Bilirubin, Total 1.5 mg/dL (0.2-1.2); Calc. Creatinine Clearance 99 mL/min (70-130); Calcium 9.3 mg/dL (7.8-10.44); Carbon Dioxide 36 mmol/L (23-31); Chloride 100 mmol/L (98-107); Estimated GFR 71; Globulin 2.8 g/dL (2.4-3.5); Glucose 112 mg/dL (83-110); Potassium 4.2 mmol/L (3.5-5.1); Protein, Total 6.4 g/dL (5.8-8.1); Sodium 144 mmol/L (136-145)
[2023-09-12 08:52] LABS: #Monocytes 0.4 thou/uL (0.11-0.59); #Neutrophils 5.7 thou/uL (1.40-6.50); %Lymphocytes 5.8 % (21.0-51.0); %Monocytes 6.5 % (0.0-10.0); %Neutrophils 86.9 % (42.0-75.0); Hematocrit 31.4 % (42.0-52.0); Mean Corpuscular HGB CONC 28.7 g/dL (32.0-36.0); Mean Corpuscular Hemoglobin 27.4 pg (27.0-31.0); Mean Corpuscular Volume 95.4 fl (78.0-98.0); Mean Platelet Volume 11.7 fL (7.4-10.4); RBC Distribution Width 18.6 % (11.5-14.5); Red Blood Cell (RBC) Count 3.29 mill/uL (4.70-6.10); White Blood Cell (WBC) Count 6.6 10x3/uL (4.8-10.8)
[2023-09-12 09:03] LABS: Platelet Count 60 10x3/uL (130-400)
[2023-09-12 14:05] LABS: Anisocytosis SLIGHT = 6-15 cells HPF (0-5); CellaVision Operator ID LAB.KB; Hypochromia SLIGHT = 6-15 cells HPF (0-5); Platelet Adequacy Comment Platelets Decreased; Polychromasia SLIGHT = 2-3 cells HPF (0-2)
[2023-09-12 14:06] LABS: Actual Bicarbonate (HCO3a) 33.4 mEq/L (22-28); Base Excess (BEa) 5.5 mEq/L (-2.0 to +3.0); Calcium, Ionized (arterial) 1.23 mmol/L (1.12-1.30); Carboxyhemoglobin (COHb) 0.8 gm% (0.0-3.0); Hematocrit-ABG 30 % (42.0-52.0); Hemoglobin (Hb) 10.2 g/dL (14.0-18.0); Potassium - ABG Lab 4.13 mmol/L (3.70-5.30); pH, Arterial 7.302 (7.35-7.45)
[2023-09-12 14:15] LABS: CO2 Tension 69.1 mmHg (35.0-45.0)
[2023-09-12 14:16] LABS: ALV-art Gradient 349.725 mmHg (0-20); Puncture Site RBA
[2023-09-12] MEDS: Bumetanide 1 MG/4 ML VIAL IVP SCH (16:41)
[2023-09-12] MEDS: Ipratropium/Albuterol 3 ML NEB NEB PRN (19:11)
[2023-09-13 05:13] LABS: #Monocytes 0.2 thou/uL (0.11-0.59); #Neutrophils 5.1 thou/uL (1.40-6.50); %Lymphocytes 5.4 % (21.0-51.0); %Monocytes 2.7 % (0.0-10.0); Hematocrit 32.8 % (42.0-52.0); Hemoglobin 9.5 g/dL (14.0-18.0); Mean Corpuscular Hemoglobin 27.4 pg (27.0-31.0); Mean Corpuscular Volume 94.5 fl (78.0-98.0); Mean Platelet Volume 11.6 fL (7.4-10.4); RBC Distribution Width 18.9 % (11.5-14.5); Red Blood Cell (RBC) Count 3.47 mill/uL (4.70-6.10); White Blood Cell (WBC) Count 5.6 10x3/uL (4.8-10.8)
[2023-09-13 05:17] LABS: Platelet Count 57 10x3/uL (130-400)
[2023-09-13 05:33] LABS: ALT (SGPT) 36 U/L (8-55); AST (SGOT) 24 U/L (5-34); Albumin 3.8 g/dL (3.4-4.8); Alkaline Phosphatase 91 U/L (40-110); Anion Gap 14 mmol/L (10-20); BUN (Urea Nitrogen) 43 mg/dL (8.4-25.7); Bilirubin, Total 1.7 mg/dL (0.2-1.2); Calc. Creatinine Clearance 98 mL/min (70-130); Calcium 9.6 mg/dL (7.8-10.44); Carbon Dioxide 36 mmol/L (23-31); Chloride 98 mmol/L (98-107); Estimated GFR 70; Globulin 3.1 g/dL (2.4-3.5); Glucose 126 mg/dL (83-110); Potassium 4.5 mmol/L (3.5-5.1); Protein, Total 6.9 g/dL (5.8-8.1); Sodium 143 mmol/L (136-145)
[2023-09-13] MEDS ORDERED: Lorazepam 2 MG/ML VIAL SLOW IVP PRN (11:31)
[2023-09-13] MEDS: methylPREDNISolone Sod Succ 40 MG VIAL IVP SCH (13:55)
[2023-09-13] MEDS: Morphine 4 MG/ML VIAL SLOW IVP PRN (18:48)
[2023-09-13 20:09] VITALS: TEMP 97.8
== END 2023-09-13 19:08 | disposition expired | DRG 291 ==
LOC: ERS 06:33 → ERHOLD 08:06 → IMCU/EMU 14:16
PROVIDERS: ADMIT Family Medicine; ATTEND Family Medicine
PROC: 5A09357 Assistance with Respiratory Ventilation, Less than 24 Consecutive Hours, Continuous Positive Airway Pressure (ICD-10-PCS; principal; 2023-09-10)
PROC: 5A09357 Assistance with Respiratory Ventilation, Less than 24 Consecutive Hours, Continuous Positive Airway Pressure (ICD-10-PCS; 2023-09-10)
PROC: 5A09357 Assistance with Respiratory Ventilation, Less than 24 Consecutive Hours, Continuous Positive Airway Pressure (ICD-10-PCS; 2023-09-10)
PROC: 4A033R1 Measurement of Arterial Saturation, Peripheral, Percutaneous Approach (ICD-10-PCS; 2023-09-10)
DX: I11.0 Hypertensive heart disease with heart failure (principal); I50.33 Acute on chronic diastolic (congestive) heart failure; Z66 Do not resuscitate; Z51.5 Encounter for palliative care; J96.21 Acute and chronic respiratory failure with hypoxia; J96.22 Acute and chronic respiratory failure with hypercapnia; E66.2 Morbid (severe) obesity with alveolar hypoventilation; E87.4 Mixed disorder of acid-base balance; I48.91 Unspecified atrial fibrillation; J44.9 Chronic obstructive pulmonary disease, unspecified; Z96.651 Presence of right artificial knee joint; D69.6 Thrombocytopenia, unspecified; E66.9 Obesity, unspecified; G47.33 Obstructive sleep apnea (adult) (pediatric); N40.0 Benign prostatic hyperplasia without lower urinary tract symptoms; J40 Bronchitis, not specified as acute or chronic; Z11.52 Encounter for screening for COVID-19; Z95.0 Presence of cardiac pacemaker; Z95.5 Presence of coronary angioplasty implant and graft; Z98.890 Other specified postprocedural states; Z87.891 Personal history of nicotine dependence; Z68.38 Body mass index [BMI] 38.0-38.9, adult
CPT/HCPCS: 36415; 36416; 36600; 71045; 80053; 82805; 83605; 83880; 84145; 84484; 85025; 87040; 87077; 87149; 87186; 87449; 87633; 87899; 93005; 94640; 94660; 94664; 96365; 96374; 96375; J0696; J1650; J1940; J2270; J2920; J2930; J3370; J3490; J7512; J7620